=== PATIENT | male | born 1940 | race Caucasian/White ===

== ENCOUNTER 2020-05-24 06:45 | Emergency (ER) | payer MEDICARE, OTHER ==
[~2020-05-24] VITALS: Ht 180.3 cm; Wt 63.5 kg
[2020-05-24 07:40] LABS: Eosinophils # (auto) 0.1 10 ^3/uL (0-0.8); Eosinophils % (auto) 0.6 % (0.0-7.0); Hemoglobin 12.4 g/dL (13.5-17.5); Lymphocytes # (auto) 0.8 10 ^3/uL (0.4-5.4); Lymphocytes % (auto) 6.4 % (10.0-50.0); Monocytes # (auto) 0.6 10 ^3/uL (0-1.3); Neutrophils # (auto) 10.3 10 ^3/uL (1.6-8.6); White Blood Cell 11.8 10^3/uL (4.4-10.8)
[2020-05-24 07:42] LABS: Basophils # (auto) 0.1 10 ^3/uL (0-0.2); Basophils % (auto) 0.5 % (0.0-2.0); Hematocrit 36.3 % (41.0-53.0); Mean Corpuscular Hemoglobin 34.8 pg (28.0-32.0); Mean Corpuscular Hgb Conc. 34.2 g/dL (32.0-36.0); Mean Corpuscular Volume 101.8 fL (80.0-100.0); Neutrophils % (auto) 87.5 % (37.0-80.0); Platelet Count (auto) 233 10^3/uL (140-450); Red Blood Cells 3.56 10^6/uL (4.5-5.90)
[2020-05-24 07:51] LABS: Albumin 3.1 g/dL (3.4-5.0); Calcium 8.8 mg/dL (8.5-10.1); Potassium 4.4 mmol/L (3.5-5.1)
[2020-05-24 07:54] LABS: Urine Bacteria NONE SEEN /hpf (None Seen); Urine Blood TRACE /uL (Negative); Urine Hyaline Cast FEW /lpf (0 - 2); Urine Mucus FEW (None Seen); Urine Specific Gravity 1.014 (1.001-1.035); Urine WBC 3 /hpf (0 - 3)
[2020-05-24 07:59] LABS: Bilirubin, Total 1.4 mg/dL (0.2-1.0); Total Protein 6.8 g/dL (6.4-8.2)
[2020-05-24 08:11] LABS: INR 1.3 (0.9-1.15); Partial Thromboplastin Time 27.6 sec (23.0-31.2)
[2020-05-24] MEDS ORDERED: cefTRIAXone 1GM/50ML D5W 50 ML IV ONE (09:00)
[2020-05-24] MEDS ORDERED: FUROSEMIDE 20 MG/2 ML VIAL IV ONE (09:00)
[2020-05-24 12:02] VITALS: BP 136/46
== END 2020-05-24 12:18 | disposition home or self-care (01) ==
LOC: EDBD 06:45 → ER 06:45
DX: R04.0 Epistaxis (principal); J18.9 Pneumonia, unspecified organism; I50.9 Heart failure, unspecified; E44.1 Mild protein-calorie malnutrition; Z68.1 Body mass index [BMI] 19.9 or less, adult
CPT/HCPCS: 30901; 36415; 71045; 80053; 81001; 84484; 85025; 85610; 85730; 96365; 96375; 99285; J0696; J1940; J7030

== ENCOUNTER 2020-07-18 23:59 | Emergency (ER) | payer MEDICARE, OTHER ==
[~2020-07-18] VITALS: Ht 180.3 cm; Wt 59.0 kg
[2020-07-19] MEDS ORDERED: LIDOCAINE VISCOUS 2% 15ML UD MT ONE (00:30)
[2020-07-19] MEDS ORDERED: OXYMETAZOLINE HCL 0.05 % NASAL SPRAY 15ML EACHNOSTRI ONE (00:30)
[2020-07-19 01:18] LABS: Basophils # (auto) 0 10 ^3/uL (0-0.2); Basophils % (auto) 0.3 % (0.0-2.0); Eosinophils # (auto) 0.1 10 ^3/uL (0-0.8); Eosinophils % (auto) 0.7 % (0.0-7.0); Hematocrit 31.4 % (41.0-53.0); Hemoglobin 10.2 g/dL (13.5-17.5); Lymphocytes # (auto) 0.9 10 ^3/uL (0.4-5.4); Lymphocytes % (auto) 10.5 % (10.0-50.0); Mean Corpuscular Hemoglobin 31.3 pg (28.0-32.0); Mean Corpuscular Hgb Conc. 32.4 g/dL (32.0-36.0); Mean Corpuscular Volume 96.5 fL (80.0-100.0); Monocytes # (auto) 0.4 10 ^3/uL (0-1.3); Neutrophils # (auto) 7.1 10 ^3/uL (1.6-8.6); Neutrophils % (auto) 83.5 % (37.0-80.0); Nucleated Red Blood Cells % 0.1 %; Platelet Count (auto) 133 10^3/uL (140-450); Red Blood Cells 3.25 10^6/uL (4.5-5.90); Red Cell Distribution Width 16.7 % (11.8-14.3); White Blood Cell 8.5 10^3/uL (4.4-10.8)
[2020-07-19 01:34] LABS: Albumin 3.5 g/dL (3.4-5.0); Calcium 8.7 mg/dL (8.5-10.1); Potassium 4.1 mmol/L (3.5-5.1)
[2020-07-19 01:35] LABS: INR 1.25 (0.9-1.15)
[2020-07-19 01:37] LABS: Bilirubin, Total 0.7 mg/dL (0.2-1.0); Total Protein 6.5 g/dL (6.4-8.2)
[2020-07-19 02:31] VITALS: BP 113/48
== END 2020-07-19 03:10 | disposition home or self-care (01) ==
LOC: ER 23:59 → EDBD 23:59 → ER 07-19 03:08
DX: R04.0 Epistaxis (principal)
CPT/HCPCS: 30901; 36415; 80053; 85025; 85610; 85730

== ENCOUNTER 2020-07-19 11:20 | Emergency (ER) | payer MEDICARE ==
[~2020-07-19] VITALS: Ht 180.3 cm; Wt 61.2 kg
[2020-07-19 11:27] VITALS: BP 147/69
== END 2020-07-19 13:03 | disposition home or self-care (01) ==
LOC: ER 11:20
DX: R04.0 Epistaxis (principal); Z48.02 Encounter for removal of sutures

== ENCOUNTER 2021-04-11 07:44 | Inpatient (IN) | payer MEDICARE, OTHER ==
[~2021-04-11] VITALS: Ht 180.3 cm; Wt 52.5 kg
[2021-04-11 09:08] LABS: INR 1.43 (0.9-1.15); Partial Thromboplastin Time 31.9 sec (23.6-33.0)
[2021-04-11 09:09] LABS: Eosinophils # (auto) 0.1 10 ^3/uL (0-0.8); Lymphocytes # (auto) 0.6 10 ^3/uL (0.4-5.4); Monocytes # (auto) 0.4 10 ^3/uL (0-1.3); Neutrophils # (auto) 5.7 10 ^3/uL (1.6-8.6); Nucleated Red Blood Cells % 0.1 %; White Blood Cell 6.9 10^3/uL (4.4-10.8)
[2021-04-11 09:10] LABS: Basophils # (auto) 0 10 ^3/uL (0-0.2); Basophils % (auto) 0.6 % (0.0-2.0); Eosinophils % (auto) 1.9 % (0.0-7.0); Hematocrit 38.3 % (41.0-53.0); Hemoglobin 12.7 g/dL (13.5-17.5); Lymphocytes % (auto) 8.2 % (10.0-50.0); Mean Corpuscular Hemoglobin 34.9 pg (28.0-32.0); Mean Corpuscular Hgb Conc. 33.1 g/dL (32.0-36.0); Mean Corpuscular Volume 105.4 fL (80.0-100.0); Monocytes % (auto) 5.8 % (0.0-12.0); Neutrophils % (auto) 83.5 % (37.0-80.0); Red Blood Cells 3.64 10^6/uL (4.5-5.90); Red Cell Distribution Width 20.9 % (11.8-14.3)
[2021-04-11 09:14] LABS: Albumin 2.7 g/dL (3.4-5.0); Calcium 8.6 mg/dL (8.5-10.1); Magnesium 3.4 mg/dL (1.6-2.6)
[2021-04-11 09:19] LABS: BUN/Creatinine Ratio 24.5
[2021-04-11 09:30] LABS: Potassium 4.7 mmol/L (3.5-5.1)
[2021-04-11] MEDS ORDERED: FUROSEMIDE 20 MG/2 ML VIAL IV ONE (12:45)
[2021-04-11] MEDS ORDERED: ENOXAPARIN SOD 40 MG/0.4 ML SYRINGE SC ONE (14:45)
[2021-04-11] MEDS ORDERED: cefTRIAXone 1GM/50ML D5W 50 ML IV ONE (14:45)
[2021-04-11] MEDS ORDERED: MORPHINE SULFATE INJECTION 2 MG/ML SYRG IV PRN ×3 (14:45→17:00)
[2021-04-11] MEDS ORDERED: AZITHROMYCIN 500MG/ 250ML 250 ML IV ONE (14:45)
[2021-04-11] MEDS ORDERED: methylPREDNISolone SOD SUCC 125 MG/2 ML VL IV ONE (14:45)
[2021-04-11] MEDS ORDERED: NITROGLYCERIN 0.4 MG SL TAB SL PRN ×2 (14:45→17:00)
[2021-04-11] MEDS ORDERED: hydrALAZINE HCL 20 MG/ML VL IV PRN ×2 (14:45→17:00)
[2021-04-11] MEDS ORDERED: ALBUTEROL SULF 2.5 MG/0.5ML(0.5%) NEB SOLN NEB ONE (14:45)
[2021-04-11] MEDS ORDERED: ALBUTEROL SULF 2.5 MG/0.5ML(0.5%) NEB SOLN NEB PRN (14:45)
[2021-04-11] MEDS ORDERED: IPRATROPIUM BROM 0.5 MG/2.5ML INH SOL NEB ONE (14:45)
[2021-04-11] MEDS: ENALAPRIL MALEATE 2.5 MG TAB PO ONE ×2 (14:54→15:17)
[2021-04-11] MEDS: FUROSEMIDE 40 MG/4 ML VIAL IV ONE ×2 (14:55→17:43)
[2021-04-11] MEDS ORDERED: METOPROLOL SUCCINATE XL 50 MG TAB PO ONE (16:45)
[2021-04-11] MEDS ORDERED: BUMETANIDE 2.5mg/10ml (0.25 mg/ml) INJ IV ONE (16:45)
[2021-04-11] MEDS ORDERED: DOCUSATE SOD 100 MG CAP PO PRN (17:00)
[2021-04-11] MEDS ORDERED: ONDANSETRON HCL 4 MG/2 ML VIAL IV PRN (17:00)
[2021-04-11] MEDS ORDERED: ALUM & MAG HYDROX-SIMETH LIQ(MAALOX) 30 ML PO PRN (17:00)
[2021-04-11] MEDS ORDERED: LORazepam 0.5 MG TAB PO PRN (17:00)
[2021-04-11] MEDS ORDERED: IPRATROPIUM BROM 0.5 MG/2.5ML INH SOL NEB SCH (18:00)
[2021-04-11 20:58] LABS: Urine Bacteria MOD /hpf (None Seen); Urine Blood Negative /uL (Negative); Urine Hyaline Cast FEW /lpf (0 - 2); Urine Specific Gravity 1.013 (1.001-1.035); Urine WBC 62 /hpf (0 - 3)
[2021-04-11 21:10] LABS: Alcohol, Urine < 3.0 mg/dL (0-10); Amphetamine Screen, Urine NEGATIVE (NEGATIVE); Barbiturate Scree,Urine NEGATIVE (NEGATIVE); Cannabinoid Screen, Urine NEGATIVE (NEGATIVE); Cocaine Screen, Urine NEGATIVE (NEGATIVE); Opiate Scree,Urine NEGATIVE (NEGATIVE); Phencyclidine Screen, Urine NEGATIVE (NEGATIVE)
[2021-04-11 21:23] LABS: Benzodiazephine Screen, Urine NEGATIVE (NEGATIVE)
[2021-04-11] MEDS: ISOSORBIDE MONONITRATE 20 MG TAB PO SCH (22:59)
[2021-04-11] MEDS: ATORVASTATIN 20 MG TAB PO SCH (22:59)
[2021-04-11] MEDS: APIXABAN 5 MG TAB PO SCH (22:59)
[2021-04-11] MEDS: methylPREDNISolone SOD SUCC 40 MG/ML VL IV SCH (22:59)
[2021-04-12] MEDS ORDERED: IPRATROPIUM BROM 0.5 MG/2.5ML INH SOL NEB PRN (02:00)
[2021-04-12] MEDS: HYDROcodone-ACET 5/325MG TAB PO PRN (02:18)
[2021-04-12] MEDS: BUMETANIDE 2.5mg/10ml (0.25 mg/ml) INJ IV SCH ×2 (05:52→17:50)
[2021-04-12] MEDS: methylPREDNISolone SOD SUCC 40 MG/ML VL IV SCH ×3 (06:06→22:48)
[2021-04-12] MEDS: ACETAMINOPHEN 325 MG TAB PO PRN ×3 (06:06→20:35)
[2021-04-12 08:15] LABS: Basophils # (auto) 0 10 ^3/uL (0-0.2); Basophils % (auto) 0.3 % (0.0-2.0); Eosinophils # (auto) 0 10 ^3/uL (0-0.8); Hematocrit 36.5 % (41.0-53.0); Hemoglobin 12.3 g/dL (13.5-17.5); Nucleated Red Blood Cells % 0.1 %
[2021-04-12 08:17] LABS: Eosinophils % (auto) 0.2 % (0.0-7.0); Lymphocytes # (auto) 0.4 10 ^3/uL (0.4-5.4); Lymphocytes % (auto) 6.9 % (10.0-50.0); Mean Corpuscular Hemoglobin 35.2 pg (28.0-32.0); Mean Corpuscular Hgb Conc. 33.8 g/dL (32.0-36.0); Mean Corpuscular Volume 104.1 fL (80.0-100.0); Monocytes # (auto) 0.1 10 ^3/uL (0-1.3); Monocytes % (auto) 1.9 % (0.0-12.0); Neutrophils # (auto) 5.1 10 ^3/uL (1.6-8.6); Neutrophils % (auto) 90.7 % (37.0-80.0); Red Blood Cells 3.51 10^6/uL (4.5-5.90); Red Cell Distribution Width 20.5 % (11.8-14.3); White Blood Cell 5.6 10^3/uL (4.4-10.8)
[2021-04-12 08:46] LABS: INR 1.41 (0.9-1.15); Partial Thromboplastin Time 32.3 sec (23.6-33.0)
[2021-04-12 08:57] LABS: Albumin 2.5 g/dL (3.4-5.0); BUN/Creatinine Ratio 21.4; Calcium 8.2 mg/dL (8.5-10.1); Magnesium 3.2 mg/dL (1.6-2.6); Phosphorus 3.8 mg/dL (2.5-4.90); Total Protein 5.8 g/dL (6.4-8.2)
[2021-04-12] MEDS: APIXABAN 5 MG TAB PO SCH ×2 (09:52→22:47)
[2021-04-12] MEDS: cefTRIAXone 1GM/50ML D5W 50 ML IV SCH (09:52)
[2021-04-12] MEDS: ISOSORBIDE MONONITRATE 20 MG TAB PO SCH ×2 (09:53→22:46)
[2021-04-12] MEDS: BENAZEPRIL HCL 10 MG TAB PO SCH (09:53)
[2021-04-12] MEDS: METOPROLOL SUCCINATE XL 50 MG TAB PO SCH (09:53)
[2021-04-12] MEDS ORDERED: ENOXAPARIN SOD 40 MG/0.4 ML SYRINGE SC SCH (10:00)
[2021-04-12] MEDS: AZITHROMYCIN 500MG/ 250ML 250 ML IV SCH (10:51)
[2021-04-12 17:07] VITALS: BP 136/70
[2021-04-12] MEDS ORDERED: METH2.5T PO (18:36)
[2021-04-12] MEDS ORDERED: APIX5TAB PO (18:36)
[2021-04-12 20:00] VITALS: BP 138/75
[2021-04-12 22:00] VITALS: BP 138/75
[2021-04-12] MEDS: ATORVASTATIN 20 MG TAB PO SCH (22:47)
[2021-04-13 05:11] VITALS: BP 134/71
[2021-04-13 05:49] LABS: Basophils # (auto) 0 10 ^3/uL (0-0.2); Basophils % (auto) 0.1 % (0.0-2.0); Eosinophils # (auto) 0 10 ^3/uL (0-0.8); Hemoglobin 12.8 g/dL (13.5-17.5); INR 1.41 (0.9-1.15); Mean Corpuscular Hemoglobin 34.9 pg (28.0-32.0); Partial Thromboplastin Time 30.8 sec (23.6-33.0)
[2021-04-13 05:53] LABS: Hematocrit 38.3 % (41.0-53.0); Lymphocytes # (auto) 0.4 10 ^3/uL (0.4-5.4); Lymphocytes % (auto) 2.8 % (10.0-50.0); Mean Corpuscular Hgb Conc. 33.4 g/dL (32.0-36.0); Mean Corpuscular Volume 104.8 fL (80.0-100.0); Monocytes # (auto) 0.3 10 ^3/uL (0-1.3); Monocytes % (auto) 1.9 % (0.0-12.0); Neutrophils # (auto) 12.6 10 ^3/uL (1.6-8.6); Neutrophils % (auto) 95.2 % (37.0-80.0); Red Blood Cells 3.66 10^6/uL (4.5-5.90); White Blood Cell 13.2 10^3/uL (4.4-10.8)
[2021-04-13 05:59] LABS: Red Cell Distribution Width 20.9 % (11.8-14.3)
[2021-04-13 06:00] LABS: Potassium 4.1 mmol/L (3.5-5.1)
[2021-04-13] MEDS: BUMETANIDE 2.5mg/10ml (0.25 mg/ml) INJ IV SCH ×2 (06:12→18:03)
[2021-04-13] MEDS: methylPREDNISolone SOD SUCC 40 MG/ML VL IV SCH ×3 (06:13→21:37)
[2021-04-13 06:16] LABS: BUN/Creatinine Ratio 24.5; Bilirubin, Total 0.9 mg/dL (0.2-1.0); Calcium 8.1 mg/dL (8.5-10.1); Magnesium 2.1 mg/dL (1.6-2.6); Total Protein 6.6 g/dL (6.4-8.2)
[2021-04-13] MEDS: cefTRIAXone 1GM/50ML D5W 50 ML IV SCH (08:17)
[2021-04-13 09:00] VITALS: BP 137/79
[2021-04-13] MEDS: APIXABAN 5 MG TAB PO SCH ×2 (10:43→21:37)
[2021-04-13] MEDS: BENAZEPRIL HCL 10 MG TAB PO SCH (10:45)
[2021-04-13] MEDS: ISOSORBIDE MONONITRATE 20 MG TAB PO SCH ×2 (10:45→21:55)
[2021-04-13] MEDS: METOPROLOL SUCCINATE XL 50 MG TAB PO SCH (10:46)
[2021-04-13 12:35] VITALS: BP 129/83
[2021-04-13] MEDS: AZITHROMYCIN 500MG/ 250ML 250 ML IV SCH (12:46)
[2021-04-13 17:00] VITALS: BP 127/84
[2021-04-13] MEDS: HYDROcodone-ACET 5/325MG TAB PO PRN (19:54)
[2021-04-13 20:00] VITALS: BP 120/84
[2021-04-13] MEDS: ATORVASTATIN 20 MG TAB PO SCH (21:37)
[2021-04-13] MEDS: MUPIROCIN 2% OINT 15gm or 22gm EACHNOSTRI SCH (21:38)
[2021-04-13 23:08] VITALS: BP 120/84
[2021-04-14] MEDS: ACETAMINOPHEN 325 MG TAB PO PRN (04:01)
[2021-04-14 05:18] VITALS: BP 137/77
[2021-04-14 06:13] LABS: Basophils # (auto) 0 10 ^3/uL (0-0.2); Eosinophils # (auto) 0 10 ^3/uL (0-0.8); Hemoglobin 12.9 g/dL (13.5-17.5); Lymphocytes # (auto) 0.2 10 ^3/uL (0.4-5.4); Monocytes # (auto) 0.4 10 ^3/uL (0-1.3); Nucleated Red Blood Cells % 0.1 %; Red Blood Cells 3.68 10^6/uL (4.5-5.90)
[2021-04-14 06:16] LABS: Hematocrit 38.7 % (41.0-53.0); Lymphocytes % (auto) 1.5 % (10.0-50.0); Mean Corpuscular Hgb Conc. 33.2 g/dL (32.0-36.0); Mean Corpuscular Volume 105.4 fL (80.0-100.0); Monocytes % (auto) 2.8 % (0.0-12.0); Neutrophils # (auto) 13.7 10 ^3/uL (1.6-8.6); Neutrophils % (auto) 95.7 % (37.0-80.0); White Blood Cell 14.3 10^3/uL (4.4-10.8)
[2021-04-14] MEDS: BUMETANIDE 2.5mg/10ml (0.25 mg/ml) INJ IV SCH ×2 (06:16→18:58)
[2021-04-14] MEDS: methylPREDNISolone SOD SUCC 40 MG/ML VL IV SCH (06:17)
[2021-04-14 06:31] LABS: Magnesium 2.3 mg/dL (1.6-2.6); Phosphorus 3.3 mg/dL (2.5-4.90)
[2021-04-14 06:37] LABS: INR 1.35 (0.9-1.15); Partial Thromboplastin Time 28.8 sec (23.6-33.0)
[2021-04-14 06:47] LABS: Red Cell Distribution Width 21.8 % (11.8-14.3)
[2021-04-14 09:00] VITALS: BP 139/70
[2021-04-14] MEDS: cefTRIAXone 1GM/50ML D5W 50 ML IV SCH (09:32)
[2021-04-14] MEDS: APIXABAN 5 MG TAB PO SCH ×2 (09:32→21:07)
[2021-04-14] MEDS: MUPIROCIN 2% OINT 15gm or 22gm EACHNOSTRI SCH ×2 (09:32→21:07)
[2021-04-14] MEDS: BENAZEPRIL HCL 10 MG TAB PO SCH (09:33)
[2021-04-14] MEDS: METOPROLOL SUCCINATE XL 50 MG TAB PO SCH (09:33)
[2021-04-14] MEDS: ISOSORBIDE MONONITRATE 20 MG TAB PO SCH ×2 (09:34→21:08)
[2021-04-14 13:00] VITALS: BP 140/71
[2021-04-14] MEDS: HYDROcodone-ACET 5/325MG TAB PO PRN (15:34)
[2021-04-14 17:00] VITALS: BP 127/53
[2021-04-14 20:00] VITALS: BP 132/70
[2021-04-14] MEDS: ATORVASTATIN 20 MG TAB PO SCH (21:08)
[2021-04-15 04:00] VITALS: BP 143/74
[2021-04-15] MEDS: HYDROcodone-ACET 5/325MG TAB PO PRN (04:30)
[2021-04-15] MEDS: BUMETANIDE 2.5mg/10ml (0.25 mg/ml) INJ IV SCH ×2 (06:49→18:24)
[2021-04-15 07:10] LABS: Calcium 8.3 mg/dL (8.5-10.1)
[2021-04-15 07:14] LABS: BUN/Creatinine Ratio 35.4
[2021-04-15 08:03] LABS: Potassium 2.7 mmol/L (3.5-5.1)
[2021-04-15 09:00] VITALS: BP 126/62
[2021-04-15] MEDS: BENAZEPRIL HCL 10 MG TAB PO SCH (09:27)
[2021-04-15] MEDS: METOPROLOL SUCCINATE XL 50 MG TAB PO SCH (09:28)
[2021-04-15] MEDS: MUPIROCIN 2% OINT 15gm or 22gm EACHNOSTRI SCH ×2 (09:28→23:01)
[2021-04-15] MEDS: APIXABAN 5 MG TAB PO SCH ×2 (09:28→23:02)
[2021-04-15] MEDS: ISOSORBIDE MONONITRATE 20 MG TAB PO SCH ×2 (10:00→23:02)
[2021-04-15] MEDS ORDERED: AZITHROMYCIN 250 MG TAB PO SCH (10:00)
[2021-04-15] MEDS ORDERED: POTASSIUM CHL 20 Meq TABLET PO ONE ×2 (10:15→13:00)
[2021-04-15] MEDS ORDERED: levoFLOXacin 500 MG TAB PO ONE (10:15)
[2021-04-15 13:00] VITALS: BP 128/54
[2021-04-15 17:00] VITALS: BP 119/60
[2021-04-15] MEDS: DOBUTamine 1000MCG/ML 250 ML IV SCH (17:14)
[2021-04-15 20:00] VITALS: BP 127/60
[2021-04-15 22:00] VITALS: BP 122/71
[2021-04-15] MEDS: ATORVASTATIN 20 MG TAB PO SCH (23:02)
[2021-04-16 05:00] VITALS: BP 138/70
[2021-04-16] MEDS: BUMETANIDE 2.5mg/10ml (0.25 mg/ml) INJ IV SCH ×2 (06:25→17:53)
[2021-04-16 08:43] LABS: Potassium 3.9 mmol/L (3.5-5.1)
[2021-04-16 08:58] LABS: BUN/Creatinine Ratio 30.7; Calcium 9.7 mg/dL (8.5-10.1); Magnesium 3.3 mg/dL (1.6-2.6)
[2021-04-16 09:00] VITALS: BP 110/56
[2021-04-16] MEDS: APIXABAN 5 MG TAB PO SCH ×2 (09:41→21:22)
[2021-04-16] MEDS: ISOSORBIDE MONONITRATE 20 MG TAB PO SCH ×2 (09:41→21:33)
[2021-04-16] MEDS: BENAZEPRIL HCL 10 MG TAB PO SCH (09:42)
[2021-04-16] MEDS: METOPROLOL SUCCINATE XL 50 MG TAB PO SCH (09:43)
[2021-04-16] MEDS: levoFLOXacin 500 MG TAB PO SCH (09:43)
[2021-04-16] MEDS: MUPIROCIN 2% OINT 15gm or 22gm EACHNOSTRI SCH ×2 (09:43→21:22)
[2021-04-16] MEDS: POTASSIUM CHL 20 Meq TABLET PO SCH (10:00)
[2021-04-16 13:00] VITALS: BP 102/48
[2021-04-16] MEDS: DOBUTamine 1000MCG/ML 250 ML IV SCH (16:15)
[2021-04-16 17:00] VITALS: BP 128/71
[2021-04-16 20:00] VITALS: BP 122/56
[2021-04-16] MEDS: ATORVASTATIN 20 MG TAB PO SCH (21:22)
[2021-04-16 22:00] VITALS: BP 122/56
[2021-04-17] MEDS: ACETAMINOPHEN 325 MG TAB PO PRN (03:35)
[2021-04-17 05:25] VITALS: BP 122/65
[2021-04-17] MEDS: BUMETANIDE 2.5mg/10ml (0.25 mg/ml) INJ IV SCH (06:50)
[2021-04-17 09:00] VITALS: BP 104/54
[2021-04-17] MEDS: POTASSIUM CHL 20 Meq TABLET PO SCH (09:56)
[2021-04-17] MEDS: APIXABAN 5 MG TAB PO SCH (09:56)
[2021-04-17] MEDS: levoFLOXacin 500 MG TAB PO SCH (09:56)
[2021-04-17] MEDS: MUPIROCIN 2% OINT 15gm or 22gm EACHNOSTRI SCH (10:00)
[2021-04-17] MEDS: ISOSORBIDE MONONITRATE 20 MG TAB PO SCH (10:00)
[2021-04-17] MEDS: METOPROLOL SUCCINATE XL 50 MG TAB PO SCH (10:00)
[2021-04-17] MEDS: BENAZEPRIL HCL 10 MG TAB PO SCH (10:00)
[2021-04-17 13:00] VITALS: BP 112/64
[2021-04-17 13:36] VITALS: BP 122/65
== END 2021-04-17 15:30 | disposition home or self-care (01) | DRG 291 ==
LOC: ER 07:44 → EDUNIT# 07:44 → EDBD 07:44 → OVERFLOW 14:39 → CENTRAL 04-12 16:21 → TELE-CENTR 04-16 02:06
PROVIDERS: ADMIT Hospitalist; ATTEND Internal Medicine
DX: I13.0 Hypertensive heart and chronic kidney disease with heart failure and stage 1 through stage 4 chronic kidney disease, or unspecified chronic kidney disease (principal); I50.43 Acute on chronic combined systolic (congestive) and diastolic (congestive) heart failure; N17.0 Acute kidney failure with tubular necrosis; J96.20 Acute and chronic respiratory failure, unspecified whether with hypoxia or hypercapnia; J44.0 Chronic obstructive pulmonary disease with (acute) lower respiratory infection; I47.1 Supraventricular tachycardia; I48.20 Chronic atrial fibrillation, unspecified; I48.92 Unspecified atrial flutter; N39.0 Urinary tract infection, site not specified; E44.0 Moderate protein-calorie malnutrition; D68.69 Other thrombophilia; J44.1 Chronic obstructive pulmonary disease with (acute) exacerbation; D64.9 Anemia, unspecified; Z20.822 Contact with and (suspected) exposure to COVID-19; E78.5 Hyperlipidemia, unspecified; M19.90 Unspecified osteoarthritis, unspecified site; R16.0 Hepatomegaly, not elsewhere classified; N18.30 Chronic kidney disease, stage 3 unspecified; M06.9 Rheumatoid arthritis, unspecified; B96.20 Unspecified Escherichia coli [E. coli] as the cause of diseases classified elsewhere; E87.6 Hypokalemia; I71.2 Thoracic aortic aneurysm, without rupture; Z79.899 Other long term (current) drug therapy; Z68.20 Body mass index [BMI] 20.0-20.9, adult; Z82.49 Family history of ischemic heart disease and other diseases of the circulatory system
CPT/HCPCS: 36415; 70450; 71045; 80048; 80053; 80307; 81001; 82607; 83036; 83735; 83880; 84100; 84443; 84484; 85025; 85379; 85610; 85730; 86160; 87040; 87081; 87086; 87088; 87186; 87426; 93005; 93306; 93970; 96365; 96368; 96372; 96375; 99291; G0378; J0696

== ENCOUNTER 2021-04-26 11:32 | Emergency (ER) | payer MEDICARE, OTHER ==
[~2021-04-26] VITALS: Ht 180.3 cm; Wt 58.1 kg
[~2021-04-26 11:32] MED LIST: APIX5TAB PO; METH2.5T PO
[2021-04-26] MEDS ORDERED: LIDOCAINE 1% HCL (LOCAL ANESTH.) INJ 20ML MDV ONE (12:25)
[2021-04-26] MEDS ORDERED: methylPREDNISolone SOD SUCC 125 MG/2 ML VL IM ONE (12:30)
[2021-04-26] MEDS ORDERED: cefTRIAXone SOD 1,000 MG VL IM ONE (12:30)
[2021-04-26] MEDS ORDERED: AMOX500T86 PO (12:43)
[2021-04-26] MEDS ORDERED: LIDO2SOL23 MT (12:43)
[2021-04-26 13:04] VITALS: BP 146/71
== END 2021-04-26 13:06 | disposition home or self-care (01) ==
LOC: ER 11:32
DX: K12.1 Other forms of stomatitis (principal); J44.9 Chronic obstructive pulmonary disease, unspecified; I50.9 Heart failure, unspecified; I48.91 Unspecified atrial fibrillation; Z79.899 Other long term (current) drug therapy
CPT/HCPCS: 96372; 99284; J0696; J2001; J2930

== ENCOUNTER 2021-08-20 15:34 | Emergency (ER) | payer MEDICARE, OTHER ==
[~2021-08-20] VITALS: Ht 180.3 cm; Wt 72.6 kg
[~2021-08-20 15:34] MED LIST changes: +AMOX500T86 PO; +LIDO2SOL23 MT
[2021-08-20 16:27] LABS: Basophils # (auto) 0 10 ^3/uL (0-0.2); Eosinophils # (auto) 0 10 ^3/uL (0-0.8); Eosinophils % (auto) 0.8 % (0.0-7.0); Lymphocytes # (auto) 0.8 10 ^3/uL (0.4-5.4); Monocytes # (auto) 0.4 10 ^3/uL (0-1.3); White Blood Cell 4.3 10^3/uL (4.4-10.8)
[2021-08-20 16:29] LABS: Basophils % (auto) 1.1 % (0.0-2.0); Hematocrit 39.6 % (41.0-53.0); Hemoglobin 13.3 g/dL (13.5-17.5); Lymphocytes % (auto) 19.2 % (10.0-50.0); Mean Corpuscular Hemoglobin 34.9 pg (28.0-32.0); Mean Corpuscular Hgb Conc. 33.7 g/dL (32.0-36.0); Mean Corpuscular Volume 103.7 fL (80.0-100.0); Monocytes % (auto) 9.5 % (0.0-12.0); Neutrophils % (auto) 69.4 % (37.0-80.0); Nucleated Red Blood Cells % 0.2 %; Red Blood Cells 3.82 10^6/uL (4.5-5.90); Red Cell Distribution Width 15.3 % (11.8-14.3)
[2021-08-20] MEDS ORDERED: AZITHROMYCIN 500MG/ 250ML 250 ML IV ONE (16:45)
[2021-08-20] MEDS ORDERED: cefTRIAXone 1GM/50ML D5W 50 ML IV ONE (16:45)
[2021-08-20 16:46] LABS: Albumin 3.7 g/dL (3.4-5.0); BUN/Creatinine Ratio 15.6; Calcium 9.5 mg/dL (8.5-10.1); INR 1.52 (0.9-1.15); Magnesium 2.4 mg/dL (1.6-2.6); Partial Thromboplastin Time 30.9 sec (23.6-33.0)
[2021-08-20 16:49] LABS: Bilirubin, Total 1.6 mg/dL (0.2-1.0); Total Protein 6.6 g/dL (6.4-8.2)
[2021-08-20] MEDS ORDERED: LEVO500T31 PO ×2 (19:41→21:07)
[2021-08-20 19:50] VITALS: BP 126/83
[2021-08-20 20:58] LABS: Urine Bacteria NONE SEEN /hpf (None Seen); Urine Blood Negative /uL (Negative); Urine Mucus FEW (None Seen); Urine Specific Gravity 1.025 (1.001-1.035); Urine WBC 2 /hpf (0 - 3)
== END 2021-08-20 21:40 | disposition home or self-care (01) ==
LOC: ER 15:34
DX: J18.9 Pneumonia, unspecified organism (principal); J44.9 Chronic obstructive pulmonary disease, unspecified
CPT/HCPCS: 36415; 71045; 80053; 81001; 83735; 83880; 84484; 85025; 85610; 85730; 86850; 86900; 86901; 93005; 96365; 96366; 96367; 99285; J0456; J0696

== ENCOUNTER 2022-07-28 14:37 | Inpatient (IN) | payer MEDICARE, OTHER ==
[~2022-07-28] VITALS: Ht 175.3 cm; Wt 56.3 kg
[~2022-07-28 14:37] MED LIST changes: +LEVO500T31 PO
[2022-07-28 15:40] LABS: Basophils # (auto) 0.1 10 ^3/uL (0-0.2); Eosinophils # (auto) 0 10 ^3/uL (0-0.8); Eosinophils % (auto) 0.1 % (0.0-7.0); Hemoglobin 13.4 g/dL (13.5-17.5); Lymphocytes # (auto) 0.9 10 ^3/uL (0.4-5.4); Monocytes # (auto) 0.9 10 ^3/uL (0-1.3)
[2022-07-28 15:42] LABS: Basophils % (auto) 0.5 % (0.0-2.0); Hematocrit 39.6 % (41.0-53.0); Mean Corpuscular Hemoglobin 34.6 pg (28.0-32.0); Mean Corpuscular Hgb Conc. 33.8 g/dL (32.0-36.0); Mean Corpuscular Volume 102.5 fL (80.0-100.0); Monocytes % (auto) 6.5 % (0.0-12.0); Neutrophils # (auto) 12.3 10 ^3/uL (1.6-8.6); Neutrophils % (auto) 86.9 % (37.0-80.0); Red Blood Cells 3.87 10^6/uL (4.5-5.90); Red Cell Distribution Width 14.8 % (11.8-14.3); White Blood Cell 14.2 10^3/uL (4.4-10.8)
[2022-07-28] MEDS ORDERED: ALBUTEROL SULF 2.5 MG/0.5ML(0.5%) NEB SOLN ONE (16:12)
[2022-07-28] MEDS ORDERED: IPRATROPIUM BROM 0.5 MG/2.5ML INH SOL ONE (16:12)
[2022-07-28 16:15] LABS: Potassium 5.2 mmol/L (3.5-5.1)
[2022-07-28] MEDS ORDERED: AZITHROMYCIN 500MG/ 250ML 250 ML IV ONE (16:15)
[2022-07-28] MEDS ORDERED: IPRATROPIUM BROM 0.5 MG/2.5ML INH SOL NEB ONE (16:15)
[2022-07-28] MEDS ORDERED: DexAMETHasone SOD PHOS 10MG/1ML VIAL INJ IV ONE (16:15)
[2022-07-28] MEDS ORDERED: ALBUTEROL SULF 2.5 MG/0.5ML(0.5%) NEB SOLN NEB ONE (16:15)
[2022-07-28] MEDS ORDERED: cefTRIAXone 1GM/50ML D5W 50 ML IV ONE (16:15)
[2022-07-28] MEDS ORDERED: dilTIAZem 25 MG/5 ML VIAL IV ONE ×2 (16:15→17:45)
[2022-07-28 16:23] LABS: Albumin 3.2 g/dL (3.4-5.0); Bilirubin, Total 1.7 mg/dL (0.2-1.0); Calcium 9.3 mg/dL (8.5-10.1); Total Protein 7.4 g/dL (6.4-8.2)
[2022-07-28] MEDS ORDERED: dilTIAZem 125 MG/25ML INJ VIAL IV ONE (16:30)
[2022-07-28] MEDS: MAGNESIUM SULFATE 1GM/100ML 100 ML IV SCH ×2 (16:52→17:39)
[2022-07-28] MEDS ORDERED: LACTATED RINGER'S 1,000 ML IV ONE (17:30)
[2022-07-28] MEDS ORDERED: dilTIAZem 120MG ER CAP PO ONE (17:45)
[2022-07-28] MEDS ORDERED: dilTIAZem HCL 60 MG TAB PO ONE (18:00)
[2022-07-28] MEDS ORDERED: NITROGLYCERIN 0.4 MG SL TAB SL PRN (19:30)
[2022-07-28] MEDS ORDERED: ALBUTEROL SULF 2.5 MG/0.5ML(0.5%) NEB SOLN NEB PRN (19:30)
[2022-07-28] MEDS ORDERED: MORPHINE SULFATE INJ 2 MG/ml SYRG IV PRN (19:30)
[2022-07-28 19:36] VITALS: BP 114/73
[2022-07-28] MEDS: ACETAMINOPHEN 325 MG TAB PO PRN (21:54)
[2022-07-28] MEDS: TEMAZEPAM 15 MG CAP PO PRN (21:56)
[2022-07-28] MEDS: APIXABAN 2.5 MG TAB PO SCH (21:57)
[2022-07-28] MEDS: IPRATROPIUM BROM 0.5 MG/2.5ML INH SOL NEB SCH (22:41)
[2022-07-28] MEDS: ALBUTEROL SULF 2.5 MG/0.5ML(0.5%) NEB SOLN NEB SCH (22:42)
[2022-07-29] MEDS: ALBUTEROL SULF 2.5 MG/0.5ML(0.5%) NEB SOLN NEB SCH ×6 (02:03→22:00)
[2022-07-29] MEDS: IPRATROPIUM BROM 0.5 MG/2.5ML INH SOL NEB SCH ×6 (02:03→21:59)
[2022-07-29] MEDS: ACETAMINOPHEN 325 MG TAB PO PRN ×2 (05:10→10:51)
[2022-07-29 06:23] LABS: Basophils # (auto) 0 10 ^3/uL (0-0.2); Basophils % (auto) 0.1 % (0.0-2.0); Eosinophils # (auto) 0 10 ^3/uL (0-0.8); Hemoglobin 12.5 g/dL (13.5-17.5); Monocytes # (auto) 0.1 10 ^3/uL (0-1.3); Monocytes % (auto) 1.5 % (0.0-12.0)
[2022-07-29 06:30] LABS: Hematocrit 36.8 % (41.0-53.0); Lymphocytes # (auto) 0.5 10 ^3/uL (0.4-5.4); Lymphocytes % (auto) 5.7 % (10.0-50.0); Mean Corpuscular Hemoglobin 34.9 pg (28.0-32.0); Mean Corpuscular Volume 102.7 fL (80.0-100.0); Neutrophils # (auto) 7.5 10 ^3/uL (1.6-8.6); Neutrophils % (auto) 92.7 % (37.0-80.0); Red Blood Cells 3.59 10^6/uL (4.5-5.90); Red Cell Distribution Width 14.8 % (11.8-14.3)
[2022-07-29 06:50] LABS: Potassium 4.4 mmol/L (3.5-5.1)
[2022-07-29 07:10] LABS: Albumin 2.7 g/dL (3.4-5.0); Bilirubin, Total 0.9 mg/dL (0.2-1.0); Calcium 9.1 mg/dL (8.5-10.1)
[2022-07-29] MEDS: cefTRIAXone 1GM/50ML D5W 50 ML IV SCH (09:37)
[2022-07-29] MEDS ORDERED: METHOTREXATE 2.5 MG TAB PO SCH (10:00)
[2022-07-29] MEDS: AZITHROMYCIN 500MG/ 250ML 250 ML IV SCH (10:51)
[2022-07-29] MEDS: APIXABAN 2.5 MG TAB PO SCH ×2 (10:51→21:01)
[2022-07-29] MEDS ORDERED: DexAMETHasone INJECTION 10 MG in D5W 5% 50 ML IV ONE (14:00)
[2022-07-29] MEDS ORDERED: METOPROLOL TARTRATE 1MG/1ML-5ML VIAL IV ONE (18:45)
[2022-07-29 20:00] VITALS: BP 145/74
[2022-07-29] MEDS: TEMAZEPAM 15 MG CAP PO PRN (21:01)
[2022-07-29 22:00] VITALS: BP 145/74
[2022-07-30] VITALS (7 sets, daily range): BP systolic 145–158; BP diastolic 74–91
[2022-07-30] MEDS: ALBUTEROL SULF 2.5 MG/0.5ML(0.5%) NEB SOLN NEB SCH ×6 (02:06→22:25)
[2022-07-30] MEDS: IPRATROPIUM BROM 0.5 MG/2.5ML INH SOL NEB SCH ×6 (02:06→22:25)
[2022-07-30 10:26] LABS: Hepatitis A Ab IgM Negative; Hepatitis B Core IgM Negative; Hepatitis C Antibody Negative (Negative)
[2022-07-30] MEDS: cefTRIAXone 1GM/50ML D5W 50 ML IV SCH (10:53)
[2022-07-30] MEDS: DexAMETHasone INJECTION 10 MG in D5W 5% 50 ML IV SCH (10:53)
[2022-07-30] MEDS: APIXABAN 2.5 MG TAB PO SCH ×2 (10:53→22:18)
[2022-07-30] MEDS ORDERED: FUROSEMIDE 40 MG/4 ML VIAL IV ONE (11:15)
[2022-07-30] MEDS: AZITHROMYCIN 500MG/ 250ML 250 ML IV SCH (12:24)
[2022-07-30] MEDS: FUROSEMIDE 20 MG/2 ML VIAL IV SCH (17:45)
[2022-07-30] MEDS: TEMAZEPAM 15 MG CAP PO PRN (22:18)
[2022-07-31] MEDS: IPRATROPIUM BROM 0.5 MG/2.5ML INH SOL NEB SCH ×3 (01:55→09:54)
[2022-07-31] MEDS: ALBUTEROL SULF 2.5 MG/0.5ML(0.5%) NEB SOLN NEB SCH ×3 (01:55→09:54)
[2022-07-31 05:24] VITALS: BP 130/79
[2022-07-31] MEDS: FUROSEMIDE 20 MG/2 ML VIAL IV SCH (06:05)
[2022-07-31 09:07] VITALS: BP 112/85
[2022-07-31] MEDS: cefTRIAXone 1GM/50ML D5W 50 ML IV SCH (09:07)
[2022-07-31] MEDS: APIXABAN 2.5 MG TAB PO SCH (09:11)
[2022-07-31] MEDS: AZITHROMYCIN 500MG/ 250ML 250 ML IV SCH (09:13)
[2022-07-31] MEDS ORDERED: dilTIAZem HCL 180MG ER CAP PO SCH (10:00)
[2022-07-31] MEDS: DexAMETHasone INJECTION 10 MG in D5W 5% 50 ML IV SCH (10:00)
[2022-07-31] MEDS ORDERED: LEVO500T31 PO (11:26)
[2022-07-31] MEDS ORDERED: METH4PAK PO (11:26)
[2022-07-31 12:44] VITALS: BP 112/85
[2022-07-31] MEDS ORDERED: TEMA15CA2 PO (14:20)
== END 2022-07-31 14:05 | disposition home or self-care (01) | DRG 193 ==
LOC: ER 14:37 → TELE 19:29 → TELE-WESTW 07-29 17:39
PROVIDERS: ADMIT Nurse Practitioner Family; ATTEND Internal Medicine Geriatric Medicine
DX: J18.9 Pneumonia, unspecified organism (principal); I50.43 Acute on chronic combined systolic (congestive) and diastolic (congestive) heart failure; J96.21 Acute and chronic respiratory failure with hypoxia; J44.1 Chronic obstructive pulmonary disease with (acute) exacerbation; J44.0 Chronic obstructive pulmonary disease with (acute) lower respiratory infection; I48.20 Chronic atrial fibrillation, unspecified; I11.0 Hypertensive heart disease with heart failure; E78.5 Hyperlipidemia, unspecified; I08.1 Rheumatic disorders of both mitral and tricuspid valves; Z82.49 Family history of ischemic heart disease and other diseases of the circulatory system; Z79.01 Long term (current) use of anticoagulants
CPT/HCPCS: 36415; 71045; 76700; 80053; 80074; 83605; 83880; 84484; 85025; 87040; 87086; 93005; 93306; 94640; 96365; 96366; 99291; G0378; J0696; J1100; J7060

== ENCOUNTER 2022-08-14 04:24 | Emergency (ER) | payer MEDICARE, OTHER ==
[~2022-08-14] VITALS: Ht 180.3 cm; Wt 60.0 kg
[~2022-08-14 04:24] MED LIST changes: -AMOX500T86 PO; -METH2.5T PO; +METH4PAK PO; +TEMA15CA2 PO
[2022-08-14 04:59] LABS: Basophils # (auto) 0.1 10 ^3/uL (0-0.2); Basophils % (auto) 0.7 % (0.0-2.0); Eosinophils # (auto) 0.1 10 ^3/uL (0-0.8); White Blood Cell 8.5 10^3/uL (4.4-10.8)
[2022-08-14 05:02] LABS: Eosinophils % (auto) 1.2 % (0.0-7.0); Hematocrit 38.4 % (41.0-53.0); Lymphocytes % (auto) 11.7 % (10.0-50.0); Mean Corpuscular Hemoglobin 34.9 pg (28.0-32.0); Mean Corpuscular Hgb Conc. 33.7 g/dL (32.0-36.0); Mean Corpuscular Volume 103.7 fL (80.0-100.0); Monocytes # (auto) 0.8 10 ^3/uL (0-1.3); Monocytes % (auto) 8.8 % (0.0-12.0); Neutrophils # (auto) 6.6 10 ^3/uL (1.6-8.6); Neutrophils % (auto) 77.6 % (37.0-80.0); Nucleated Red Blood Cells % 0.1 %; Red Blood Cells 3.71 10^6/uL (4.5-5.90); Red Cell Distribution Width 14.9 % (11.8-14.3)
[2022-08-14 05:15] LABS: INR 1.18 (0.9-1.15); Partial Thromboplastin Time 29.9 sec (24.6-33.4)
[2022-08-14 05:20] LABS: Albumin 3.2 g/dL (3.4-5.0); Magnesium 2.4 mg/dL (1.6-2.6); Potassium 4.5 mmol/L (3.5-5.1)
[2022-08-14 05:23] LABS: BUN/Creatinine Ratio 29.6 (10.0-20.0); Bilirubin, Total 1.5 mg/dL (0.2-1.0); Total Protein 6.4 g/dL (6.4-8.2)
[2022-08-14] MEDS ORDERED: OXYMETAZOLINE HCL 0.05 % NASAL SPRAY 15ML EACHNOSTRI ONE ×2 (05:30→06:45)
[2022-08-14 08:34] VITALS: BP 122/65
== END 2022-08-14 10:05 | disposition home or self-care (01) ==
LOC: EDBD 04:24 → ER 04:24
DX: R04.0 Epistaxis (principal)
CPT/HCPCS: 30901; 36415; 80053; 83735; 83880; 84484; 85025; 85610; 85730; 93005

== ENCOUNTER 2022-08-26 11:51 | Inpatient (IN) | payer MEDICARE ==
[~2022-08-26] VITALS: Ht 180.3 cm; Wt 53.6 kg
[~2022-08-26 11:51] MED LIST changes: -LIDO2SOL23 MT; +LIDO2SOL26 MT
[2022-08-26 12:50] LABS: Basophils # (auto) 0 10 ^3/uL (0-0.2); Eosinophils # (auto) 0 10 ^3/uL (0-0.8); Hematocrit 40.3 % (41.0-53.0); Hemoglobin 13.6 g/dL (13.5-17.5); Mean Corpuscular Hemoglobin 34.7 pg (28.0-32.0); Mean Corpuscular Hgb Conc. 33.7 g/dL (32.0-36.0); Monocytes # (auto) 0.5 10 ^3/uL (0-1.3); Neutrophils # (auto) 1.9 10 ^3/uL (1.6-8.6); Nucleated Red Blood Cells % 0.1 %; White Blood Cell 2.9 10^3/uL (4.4-10.8)
[2022-08-26 12:52] LABS: Basophils % (auto) 0.7 % (0.0-2.0); Eosinophils % (auto) 0.8 % (0.0-7.0); Lymphocytes # (auto) 0.4 10 ^3/uL (0.4-5.4); Lymphocytes % (auto) 15.5 % (10.0-50.0); Mean Corpuscular Volume 102.9 fL (80.0-100.0); Monocytes % (auto) 16.9 % (0.0-12.0); Neutrophils % (auto) 66.1 % (37.0-80.0); Red Blood Cells 3.92 10^6/uL (4.5-5.90); Red Cell Distribution Width 14.5 % (11.8-14.3)
[2022-08-26] MEDS ORDERED: IPRATROPIUM BROM 0.5 MG/2.5ML INH SOL NEB ONE (13:00)
[2022-08-26] MEDS ORDERED: ALBUTEROL SULF 2.5 MG/0.5ML(0.5%) NEB SOLN NEB ONE (13:00)
[2022-08-26] MEDS ORDERED: DexAMETHasone SOD PHOS 10MG/1ML VIAL INJ IV ONE (13:00)
[2022-08-26] MEDS ORDERED: DOXYCYCLINE 100MG/250ML 250 ML IV ONE (13:00)
[2022-08-26] MEDS ORDERED: MAGNESIUM SULFATE 1GM/100ML 100 ML IV ONE (13:00)
[2022-08-26 13:07] LABS: INR 1.15 (0.9-1.15); Partial Thromboplastin Time 33.6 sec (24.6-33.4)
[2022-08-26 13:08] LABS: Albumin 3.6 g/dL (3.4-5.0); Calcium 8.8 mg/dL (8.5-10.1); Magnesium 2.3 mg/dL (1.6-2.6); Potassium 4.8 mmol/L (3.5-5.1)
[2022-08-26 13:11] LABS: Bilirubin, Total 0.8 mg/dL (0.2-1.0); Total Protein 7.2 g/dL (6.4-8.2)
[2022-08-26] MEDS ORDERED: VANCOMYCIN 1GM/250ML 250 ML IV ONE ×2 (16:45)
[2022-08-26] MEDS ORDERED: CEFEPIME 1GM/ 50ML 50 ML IV ONE ×2 (16:45)
[2022-08-26] MEDS ORDERED: ALBUTEROL SULF 2.5 MG/0.5ML(0.5%) NEB SOLN NEB PRN (17:00)
[2022-08-26] MEDS ORDERED: ACETAMINOPHEN 500 MG TAB PO ONE (17:00)
[2022-08-26] MEDS ORDERED: ACETAMINOPHEN 325 MG TAB PO PRN (17:15)
[2022-08-26] MEDS: ALBUTEROL SULF 2.5 MG/0.5ML(0.5%) NEB SOLN NEB SCH (18:00)
[2022-08-26] MEDS: IPRATROPIUM BROM 0.5 MG/2.5ML INH SOL NEB SCH (18:00)
[2022-08-26 19:44] VITALS: BP 140/55
[2022-08-26] MEDS ORDERED: dilTIAZem HCL 60 MG TAB PO ONE (20:30)
[2022-08-26] MEDS ORDERED: dilTIAZem 25 MG/5 ML VIAL IV ONE ×2 (20:30)
[2022-08-26] MEDS: APIXABAN 2.5 MG TAB PO SCH ×2 (22:00→22:18)
[2022-08-27] MEDS: ALBUTEROL SULF 2.5 MG/0.5ML(0.5%) NEB SOLN NEB SCH ×4 (00:32→20:15)
[2022-08-27] MEDS: IPRATROPIUM BROM 0.5 MG/2.5ML INH SOL NEB SCH ×4 (00:32→20:15)
[2022-08-27] MEDS: levoFLOXacin 500 MG TAB PO SCH ×2 (02:54→22:16)
[2022-08-27] MEDS: ACETAMINOPHEN 325 MG TAB PO PRN ×3 (02:54→22:16)
[2022-08-27 07:40] LABS: Albumin 3.4 g/dL (3.4-5.0); Calcium 8.3 mg/dL (8.5-10.1); Potassium 4.9 mmol/L (3.5-5.1)
[2022-08-27 07:42] LABS: Mean Corpuscular Hgb Conc. 33.6 g/dL (32.0-36.0)
[2022-08-27 07:44] LABS: Hematocrit 37.9 % (41.0-53.0); Hemoglobin 12.7 g/dL (13.5-17.5); Mean Corpuscular Hemoglobin 34.7 pg (28.0-32.0); Mean Corpuscular Volume 103.2 fL (80.0-100.0); Red Blood Cells 3.67 10^6/uL (4.5-5.90); Red Cell Distribution Width 14.1 % (11.8-14.3)
[2022-08-27 07:45] LABS: BUN/Creatinine Ratio 21.4 (10.0-20.0); Bilirubin, Total 0.8 mg/dL (0.2-1.0); Total Protein 7.1 g/dL (6.4-8.2)
[2022-08-27 07:57] LABS: White Blood Cell 1.5 10^3/uL (4.4-10.8)
[2022-08-27] MEDS ORDERED: methylPREDNISolone 4 MG TAB PO SCH (10:00)
[2022-08-27] MEDS: APIXABAN 2.5 MG TAB PO SCH ×3 (10:00→22:00)
[2022-08-27] MEDS ORDERED: ENOXAPARIN SOD 40 MG/0.4 ML SYRINGE SC SCH (10:00)
[2022-08-27 10:17] LABS: Band Neutrophils % (manual) 0; Basophils % (manual) 0 (0.0-2.0); Blast Cells 0; Eosinophils % (manual) 0 (0-7); Metamyelocytes % 0; Myelocytes % 0; Promyelocytes % 0; Reactive Lymphocytes 0
[2022-08-27 10:46] LABS: Lymphocytes % (manual) 27 (10.0-50.0); Monocytes % (manual) 5 (0-12)
[2022-08-27 13:00] VITALS: BP 128/73
[2022-08-27 16:53] VITALS: BP 123/64
[2022-08-28] VITALS (7 sets, daily range): BP systolic 116–146; BP diastolic 60–83
[2022-08-28] MEDS: IPRATROPIUM BROM 0.5 MG/2.5ML INH SOL NEB SCH ×4 (00:16→18:04)
[2022-08-28] MEDS: ALBUTEROL SULF 2.5 MG/0.5ML(0.5%) NEB SOLN NEB SCH ×4 (00:16→18:04)
[2022-08-28] MEDS: APIXABAN 2.5 MG TAB PO SCH ×2 (10:00→21:20)
[2022-08-28] MEDS: ACETAMINOPHEN 325 MG TAB PO PRN ×2 (10:05→21:19)
[2022-08-28] MEDS ORDERED: ONDANSETRON HCL 4 MG/2 ML VIAL IV PRN (10:45)
[2022-08-28] MEDS ORDERED: CARVEDILOL 3.125 MG TAB PO ONE (11:45)
[2022-08-28 13:48] LABS: BUN/Creatinine Ratio 21.4 (10.0-20.0); Calcium 8.3 mg/dL (8.5-10.1)
[2022-08-28] MEDS ORDERED: cefTRIAXone 1GM/50ML D5W 50 ML IV ONE (17:00)
[2022-08-28] MEDS ORDERED: AZITHROMYCIN 250 MG TAB PO ONE (17:00)
[2022-08-28 18:12] LABS: Basophils # (auto) 0 10 ^3/uL (0-0.2); Basophils % (auto) 0.2 % (0.0-2.0); Eosinophils # (auto) 0 10 ^3/uL (0-0.8); Eosinophils % (auto) 0.1 % (0.0-7.0); Lymphocytes # (auto) 0.9 10 ^3/uL (0.4-5.4); Mean Corpuscular Volume 103.7 fL (80.0-100.0); Monocytes # (auto) 0.7 10 ^3/uL (0-1.3); Nucleated Red Blood Cells % 0.1 %; White Blood Cell 4.6 10^3/uL (4.4-10.8)
[2022-08-28 18:14] LABS: Hematocrit 39.2 % (41.0-53.0); Hemoglobin 13.2 g/dL (13.5-17.5); Lymphocytes % (auto) 20.5 % (10.0-50.0); Mean Corpuscular Hemoglobin 34.9 pg (28.0-32.0); Mean Corpuscular Hgb Conc. 33.7 g/dL (32.0-36.0); Monocytes % (auto) 14.6 % (0.0-12.0); Neutrophils % (auto) 64.6 % (37.0-80.0); Red Blood Cells 3.78 10^6/uL (4.5-5.90); Red Cell Distribution Width 14.3 % (11.8-14.3)
[2022-08-28] MEDS: CARVEDILOL 3.125 MG TAB PO SCH (21:20)
[2022-08-29] MEDS: IPRATROPIUM BROM 0.5 MG/2.5ML INH SOL NEB SCH ×3 (00:11→13:05)
[2022-08-29] MEDS: ALBUTEROL SULF 2.5 MG/0.5ML(0.5%) NEB SOLN NEB SCH ×3 (00:11→13:04)
[2022-08-29 05:00] VITALS: BP 111/69
[2022-08-29 05:22] LABS: Basophils # (auto) 0 10 ^3/uL (0-0.2); Basophils % (auto) 0.3 % (0.0-2.0); Eosinophils # (auto) 0 10 ^3/uL (0-0.8); Eosinophils % (auto) 0.8 % (0.0-7.0); Hematocrit 37.4 % (41.0-53.0); Hemoglobin 13.1 g/dL (13.5-17.5); Lymphocytes # (auto) 1.3 10 ^3/uL (0.4-5.4); Lymphocytes % (auto) 29.8 % (10.0-50.0); Mean Corpuscular Hemoglobin 35.5 pg (28.0-32.0); Mean Corpuscular Hgb Conc. 34.9 g/dL (32.0-36.0); Mean Corpuscular Volume 101.8 fL (80.0-100.0); Monocytes # (auto) 0.6 10 ^3/uL (0-1.3); Monocytes % (auto) 13.7 % (0.0-12.0); Neutrophils # (auto) 2.4 10 ^3/uL (1.6-8.6); Neutrophils % (auto) 55.4 % (37.0-80.0); Nucleated Red Blood Cells % 0.1 %; Red Blood Cells 3.68 10^6/uL (4.5-5.90); Red Cell Distribution Width 14.4 % (11.8-14.3); White Blood Cell 4.4 10^3/uL (4.4-10.8)
[2022-08-29 06:08] LABS: Potassium 4.1 mmol/L (3.5-5.1)
[2022-08-29 06:12] LABS: BUN/Creatinine Ratio 29.3 (10.0-20.0); Calcium 8.1 mg/dL (8.5-10.1); Magnesium 2.2 mg/dL (1.6-2.6)
[2022-08-29 07:43] VITALS: BP 130/67
[2022-08-29 08:15] VITALS: BP 130/67
[2022-08-29] MEDS ORDERED: cefTRIAXone 1GM/50ML D5W 50 ML IV SCH (09:00)
[2022-08-29] MEDS ORDERED: VANCOMYCIN 1GM/250ML 250 ML IV ONE (09:00)
[2022-08-29] MEDS ORDERED: VANCOMYCIN PER PHARMACY 0 MG IV SCH (09:00)
[2022-08-29] MEDS: CARVEDILOL 3.125 MG TAB PO SCH (09:13)
[2022-08-29] MEDS: APIXABAN 2.5 MG TAB PO SCH (09:17)
[2022-08-29] MEDS ORDERED: MUPIROCIN 2% OINT 15gm or 22gm FOR MRSA NARES EACHNOSTRI SCH (10:00)
[2022-08-29] MEDS ORDERED: guaiFENesin-DM 100/10mg/5ml SYR PO PRN (11:00)
[2022-08-29 12:04] VITALS: BP 111/56
[2022-08-29] MEDS ORDERED: CAR3125T OR (16:04)
[2022-08-29] MEDS ORDERED: DOXY1CAP57 PO (16:04)
[2022-08-29] MEDS ORDERED: MUPI2CRE17 EX (16:04)
[2022-08-29 16:12] VITALS: BP 122/51
[2022-08-29 16:36] VITALS: BP 122/51
[2022-08-30] MEDS ORDERED: VANCOMYCIN 750mg/250ml 250 ML IV SCH (10:00)
== END 2022-08-29 17:15 | disposition home or self-care (01) | DRG 189 ==
LOC: ER 11:51 → OVERFLOW 17:05 → CENTRAL 08-27 11:43 → TELE-CENTR 08-28 13:01
PROVIDERS: ADMIT Nurse Practitioner Family; ATTEND Internal Medicine Geriatric Medicine
DX: J96.21 Acute and chronic respiratory failure with hypoxia (principal); E87.1 Hypo-osmolality and hyponatremia; I50.40 Unspecified combined systolic (congestive) and diastolic (congestive) heart failure; I48.21 Permanent atrial fibrillation; R64 Cachexia; Z68.1 Body mass index [BMI] 19.9 or less, adult; J84.9 Interstitial pulmonary disease, unspecified; J84.10 Pulmonary fibrosis, unspecified; J20.9 Acute bronchitis, unspecified; J43.9 Emphysema, unspecified; D70.9 Neutropenia, unspecified; I25.10 Atherosclerotic heart disease of native coronary artery without angina pectoris; M06.9 Rheumatoid arthritis, unspecified; N18.2 Chronic kidney disease, stage 2 (mild); R74.01 Elevation of levels of liver transaminase levels; B95.62 Methicillin resistant Staphylococcus aureus infection as the cause of diseases classified elsewhere; R62.7 Adult failure to thrive; Z82.49 Family history of ischemic heart disease and other diseases of the circulatory system; M19.90 Unspecified osteoarthritis, unspecified site; Z87.11 Personal history of peptic ulcer disease; Z79.01 Long term (current) use of anticoagulants
CPT/HCPCS: 36415; 71045; 71250; 80048; 80053; 83735; 83880; 83930; 84484; 84550; 85007; 85025; 85027; 85610; 85730; 87081; 93005; 94640; 96365; 96366; 96375; 97163; G0378; J0696; J1100; J3490

== ENCOUNTER 2023-08-20 12:09 | Inpatient (IN) | payer MEDICARE, OTHER ==
[~2023-08-20] VITALS: Ht 180.3 cm; Wt 53.4 kg
[~2023-08-20 12:09] MED LIST changes: +CARV-214 OR; +DOXY1CAP57 PO; -LEVO500T31 PO; -LIDO2SOL26 MT; -METH4PAK PO; +MUPI2CRE17 EX
[2023-08-20 13:07] LABS: Basophils # (auto) 0.1 10 ^3/uL (0-0.2); Basophils % (auto) 1.8 % (0.0-2.0); Eosinophils # (auto) 0 10 ^3/uL (0-0.8); Eosinophils % (auto) 0.3 % (0.0-7.0); Hematocrit 40.1 % (41.0-53.0); Hemoglobin 13.6 g/dL (13.5-17.5); Lymphocytes # (auto) 0.7 10 ^3/uL (0.4-5.4); Lymphocytes % (auto) 10.1 % (10.0-50.0); Mean Corpuscular Hemoglobin 33.8 pg (28.0-32.0); Mean Corpuscular Hgb Conc. 33.9 g/dL (32.0-36.0); Mean Corpuscular Volume 99.9 fL (80.0-100.0); Monocytes # (auto) 0.5 10 ^3/uL (0-1.3); Monocytes % (auto) 6.6 % (0.0-12.0); Neutrophils # (auto) 5.9 10 ^3/uL (1.6-8.6); Neutrophils % (auto) 81.2 % (37.0-80.0); Red Blood Cells 4.01 10^6/uL (4.5-5.90); Red Cell Distribution Width 13.8 % (11.8-14.3); White Blood Cell 7.3 10^3/uL (4.4-10.8)
[2023-08-20 13:15] LABS: Alanine Aminotransferase 25 U/L (7-40); Albumin 3.9 g/dL (3.2-4.8); Alkaline Phosphatase 282 U/L (46-116); Anion Gap 4 (5-15); Aspartate Aminotransferase 32 U/L (13-40); BUN/Creatinine Ratio 18.8 (10.0-20.0); Bilirubin, Total 1.2 mg/dL (0.2-1.0); Blood Urea Nitrogen 19 mg/dL (9-23); Calcium 9.7 mg/dL (8.7-10.4); Carbon Dioxide 28 mmol/L (20-30); Chloride 101 mmol/L (98-107); Glucose 95 mg/dL (74-106); Magnesium 2.1 mg/dL (1.6-2.6); Potassium 4.9 mmol/L (3.5-5.1); Sodium 133 mmol/L (136-145)
[2023-08-20 13:28] LABS: INR 1.3 (0.9-1.15); Partial Thromboplastin Time 28.1 SEC (24.5-34.5); Prothrombin Time 13.5 sec (9.3-11.8)
[2023-08-20] MEDS: dilTIAZem 25 MG/5 ML VIAL IV ONE (13:29)
[2023-08-20] MEDS: methylPREDNISolone SOD SUCC 125 MG/2 ML VL IV ONE (13:29)
[2023-08-20] MEDS: FUROSEMIDE 40 MG/4 ML VIAL IV ONE (15:09)
[2023-08-20] MEDS ORDERED: NITROGLYCERIN 0.4 MG SL TAB SL PRN (15:45)
[2023-08-20] MEDS: AZITHROMYCIN 500MG/ 250ML 250 ML IV ONE (15:45)
[2023-08-20] MEDS ORDERED: MORPHINE SULFATE INJ 2 MG/ml SYRG IV PRN (15:45)
[2023-08-20] MEDS: cefTRIAXone 1GM/50ML D5W 50 ML IV ONE (15:45)
[2023-08-20] MEDS: METOPROLOL TARTRATE 25 MG TAB PO ONE (16:40)
[2023-08-20 17:25] LABS: Urine Bacteria None Seen /hpf (None Seen); Urine WBC None Seen /hpf (0 - 3)
[2023-08-20 17:27] LABS: Urine Blood Negative /uL (Negative); Urine Clarity Clear (Clear); Urine Color Colorless (Yellow); Urine Protein, UAD Negative (Negative); Urine Specific Gravity 1.005 (1.001-1.035); Urine Urobilinogen Normal (Negative)
[2023-08-20 18:19] VITALS: PULSE 91; RESP 18; O2SAT 98
[2023-08-20] MEDS: LEVALBUTEROL HCL 1.25 MG/3 ML NEB NEB SCH (18:19)
[2023-08-20 18:25] VITALS: PULSE 94; RESP 18; O2SAT 100
[2023-08-20 21:50] VITALS: PULSE 93; RESP 25; O2SAT 93
[2023-08-20] MEDS: TAMSULOSIN HYDROCHLORIDE 0.4 MG CAP PO SCH (22:23)
[2023-08-20] MEDS: ACETAMINOPHEN 500 MG TAB PO ONE (22:23)
[2023-08-20] MEDS: METOPROLOL TARTRATE 25 MG TAB PO SCH (22:24)
[2023-08-21] VITALS (17 sets, daily range): BP systolic 102–133; BP diastolic 59–92; PULSE 65–111; RESP 15–21; TEMP 97.4–98.3; O2SAT 91–100
[2023-08-21 06:46] LABS: Basophils # (auto) 0 10 ^3/uL (0-0.2); Eosinophils # (auto) 0 10 ^3/uL (0-0.8); Hemoglobin 13.6 g/dL (13.5-17.5); Lymphocytes # (auto) 0.3 10 ^3/uL (0.4-5.4); Monocytes # (auto) 0.2 10 ^3/uL (0-1.3); Red Cell Distribution Width 13.7 % (11.8-14.3)
[2023-08-21 06:50] LABS: Hematocrit 39.4 % (41.0-53.0); Lymphocytes % (auto) 5.5 % (10.0-50.0); Mean Corpuscular Hemoglobin 34.9 pg (28.0-32.0); Mean Corpuscular Hgb Conc. 34.6 g/dL (32.0-36.0); Mean Corpuscular Volume 100.8 fL (80.0-100.0); Neutrophils # (auto) 4.7 10 ^3/uL (1.6-8.6); Neutrophils % (auto) 90.5 % (37.0-80.0); Nucleated Red Blood Cells % 0.1 %; Red Blood Cells 3.91 10^6/uL (4.5-5.90); White Blood Cell 5.2 10^3/uL (4.4-10.8)
[2023-08-21 07:05] LABS: Alanine Aminotransferase 21 U/L (7-40); Albumin 3.6 g/dL (3.2-4.8); Alkaline Phosphatase 252 U/L (46-116); Anion Gap 4 (5-15); Aspartate Aminotransferase 24 U/L (13-40); BUN/Creatinine Ratio 16.4 (10.0-20.0); Bilirubin, Total 1.2 mg/dL (0.2-1.0); Blood Urea Nitrogen 25 mg/dL (9-23); Calcium 9.9 mg/dL (8.5-10.1); Carbon Dioxide 32 mmol/L (20-30); Chloride 98 mmol/L (98-107); Glucose 191 mg/dL (74-106); Potassium 4.8 mmol/L (3.5-5.1); Sodium 134 mmol/L (136-145); Total Protein 6.7 g/dL (5.7-8.2)
[2023-08-21] MEDS: cefTRIAXone 1GM/50ML D5W 50 ML IV SCH (09:17)
[2023-08-21] MEDS: ACETAMINOPHEN 500 MG TAB PO PRN (09:21)
[2023-08-21] MEDS: FUROSEMIDE 20 MG/2 ML VIAL IV SCH (09:24)
[2023-08-21] MEDS: AZITHROMYCIN 500MG/ 250ML 250 ML IV SCH (10:20)
[2023-08-21 14:14] LABS: COVID19 ANTIGEN SOFIA FIA NEGATIVE (NEGATIVE); Rapid Influenza A Negative (Negative); Rapid Influenza B Negative (Negative)
[2023-08-21] MEDS: MELATONIN 5 MG TAB PO SCH (21:54)
[2023-08-22] VITALS (8 sets, daily range): BP systolic 128–136; BP diastolic 63–70; PULSE 74–90; RESP 17–18; TEMP 97.6–98.1; O2SAT 95–100
[2023-08-22 05:37] LABS: Basophils # (auto) 0 10 ^3/uL (0-0.2); Eosinophils # (auto) 0 10 ^3/uL (0-0.8); Hemoglobin 12.9 g/dL (13.5-17.5); Monocytes # (auto) 0.8 10 ^3/uL (0-1.3); White Blood Cell 10.7 10^3/uL (4.4-10.8)
[2023-08-22 05:40] LABS: Basophils % (auto) 0.2 % (0.0-2.0); Eosinophils % (auto) 0.1 % (0.0-7.0); Hematocrit 37.6 % (41.0-53.0); Lymphocytes # (auto) 0.8 10 ^3/uL (0.4-5.4); Lymphocytes % (auto) 7.1 % (10.0-50.0); Mean Corpuscular Hemoglobin 34.3 pg (28.0-32.0); Mean Corpuscular Hgb Conc. 34.3 g/dL (32.0-36.0); Mean Corpuscular Volume 100.2 fL (80.0-100.0); Monocytes % (auto) 7.3 % (0.0-12.0); Neutrophils # (auto) 9.2 10 ^3/uL (1.6-8.6); Neutrophils % (auto) 85.3 % (37.0-80.0); Red Blood Cells 3.75 10^6/uL (4.5-5.90); Red Cell Distribution Width 13.9 % (11.8-14.3)
[2023-08-22 05:44] LABS: Anion Gap 2 (5-15); Calcium 9.4 mg/dL (8.7-10.4); Carbon Dioxide 33 mmol/L (20-30); Chloride 97 mmol/L (98-107); Potassium 4.4 mmol/L (3.5-5.1); Sodium 132 mmol/L (136-145)
[2023-08-22 05:50] LABS: BUN/Creatinine Ratio 21.1 (10.0-20.0); Blood Urea Nitrogen 27 mg/dL (9-23); Glucose 102 mg/dL (74-106)
[2023-08-22] MEDS ORDERED: METO25TA5 PO (12:09)
[2023-08-22] MEDS ORDERED: DOXY-346 PO (12:09)
[2023-08-22] MEDS ORDERED: MUPIROCIN 2% OINT 15gm or 22gm FOR MRSA NARES EACHNOSTRI SCH (22:00)
== END 2023-08-22 15:00 | disposition home or self-care (01) | DRG 177 ==
LOC: ER 12:12 → TELE 15:50 → TELE-WESTW 23:48
PROVIDERS: ADMIT Registered Nurse; ATTEND Registered Nurse
DX: J15.69 Pneumonia due to other Gram-negative bacteria (principal); I50.33 Acute on chronic diastolic (congestive) heart failure; J96.20 Acute and chronic respiratory failure, unspecified whether with hypoxia or hypercapnia; J44.1 Chronic obstructive pulmonary disease with (acute) exacerbation; I48.19 Other persistent atrial fibrillation; N17.9 Acute kidney failure, unspecified; R64 Cachexia; J44.0 Chronic obstructive pulmonary disease with (acute) lower respiratory infection; I11.0 Hypertensive heart disease with heart failure; J15.9 Unspecified bacterial pneumonia; N40.0 Benign prostatic hyperplasia without lower urinary tract symptoms; E78.5 Hyperlipidemia, unspecified; I08.1 Rheumatic disorders of both mitral and tricuspid valves; Z20.822 Contact with and (suspected) exposure to COVID-19; I71.20 Thoracic aortic aneurysm, without rupture, unspecified; Z82.49 Family history of ischemic heart disease and other diseases of the circulatory system
CPT/HCPCS: 36415; 71045; 80048; 80053; 81001; 82962; 83605; 83735; 83880; 84443; 84484; 85025; 85610; 85730; 87040; 87081; 87426; 87804; 93005; 93306; 94640; 96365; 96368; 96375; 99291; G0378

== ENCOUNTER 2023-09-03 09:21 | Inpatient (IN) | payer MEDICARE, OTHER ==
[~2023-09-03] VITALS: Ht 180.3 cm; Wt 54.4 kg
[~2023-09-03 09:21] MED LIST changes: +DOXY-346 PO; +METO25TA5 PO
[2023-09-03] MEDS: dilTIAZem 25 MG/5 ML VIAL IV ONE (10:02)
[2023-09-03 10:09] VITALS: PULSE 81; RESP 26
[2023-09-03 10:18] LABS: Eosinophils # (auto) 0 10 ^3/uL (0-0.8); Hemoglobin 13.6 g/dL (13.5-17.5); Neutrophils # (auto) 5.7 10 ^3/uL (1.6-8.6); Nucleated Red Blood Cells % 0.1 %; Red Blood Cells 3.91 10^6/uL (4.5-5.90)
[2023-09-03 10:20] LABS: Basophils # (auto) 0.1 10 ^3/uL (0-0.2); Basophils % (auto) 0.8 % (0.0-2.0); Eosinophils % (auto) 0.5 % (0.0-7.0); Hematocrit 39.6 % (41.0-53.0); Lymphocytes # (auto) 0.8 10 ^3/uL (0.4-5.4); Lymphocytes % (auto) 10.6 % (10.0-50.0); Mean Corpuscular Hemoglobin 34.7 pg (28.0-32.0); Mean Corpuscular Hgb Conc. 34.2 g/dL (32.0-36.0); Mean Corpuscular Volume 101.5 fL (80.0-100.0); Monocytes # (auto) 0.6 10 ^3/uL (0-1.3); Monocytes % (auto) 7.8 % (0.0-12.0); Neutrophils % (auto) 80.3 % (37.0-80.0); Red Cell Distribution Width 14.4 % (11.8-14.3); White Blood Cell 7.1 10^3/uL (4.4-10.8)
[2023-09-03 10:35] LABS: Chloride 104 mmol/L (98-107); Sodium 136 mmol/L (136-145)
[2023-09-03 10:36] LABS: Anion Gap 6 (5-15); Calcium 9.6 mg/dL (8.5-10.1); Carbon Dioxide 26 mmol/L (20-30)
[2023-09-03 10:41] LABS: Glucose 84 mg/dL (74-106); Magnesium 2.2 mg/dL (1.6-2.6)
[2023-09-03 11:18] LABS: BUN/Creatinine Ratio 20.7 (10.0-20.0); Blood Urea Nitrogen 24 mg/dL (9-23)
[2023-09-03 11:19] LABS: Potassium 5.4 mmol/L (3.5-5.1)
[2023-09-03] MEDS: ACETAMINOPHEN 325 MG TAB PO ONE (13:58)
[2023-09-03 14:30] VITALS: BP 140/76; PULSE 99; RESP 15; TEMP 98.7; O2SAT 99
[2023-09-03] MEDS ORDERED: HYDROcodone-ACET 5/325MG TAB PO PRN (14:30)
[2023-09-03] MEDS ORDERED: ONDANSETRON HCL 4 MG/2 ML VIAL IV PRN (14:30)
[2023-09-03] MEDS ORDERED: DOCUSATE SOD 100 MG CAP PO PRN (14:30)
[2023-09-03] MEDS ORDERED: MORPHINE SULFATE INJ 2 MG/ml SYRG IV PRN (14:30)
[2023-09-03] MEDS ORDERED: NITROGLYCERIN 0.4 MG SL TAB SL PRN (14:30)
[2023-09-03] MEDS: AZITHROMYCIN 500MG/ 250ML 250 ML IV ONE (14:47)
[2023-09-03] MEDS: ALBUTEROL SULF 2.5 MG/0.5ML(0.5%) NEB SOLN NEB SCH (18:27)
[2023-09-03] MEDS: IPRATROPIUM BROM 0.5 MG/2.5ML INH SOL NEB SCH (18:27)
[2023-09-03 19:45] VITALS: PULSE 86; RESP 24; O2SAT 96
[2023-09-03] MEDS ORDERED: METOPROLOL TARTRATE 25 MG TAB PO SCH (22:00)
[2023-09-03] MEDS: SODIUM CHLOR 0.9% PF (SALINE LOCK) 10ML VIAL/SYR IV SCH (22:22)
[2023-09-03] MEDS: methylPREDNISolone SOD SUCC 40 MG/ML VL IV SCH (22:23)
[2023-09-03] MEDS: CARVEDILOL 3.125 MG TAB PO SCH (22:24)
[2023-09-03 23:57] VITALS: BP 134/67; PULSE 106; RESP 18; RESP 20; TEMP 98.6; O2SAT 100; O2SAT 96
[2023-09-04] VITALS (16 sets, daily range): BP systolic 107–138; BP diastolic 51–85; PULSE 73–107; RESP 16–20; TEMP 96.8–97.7; O2SAT 96–100
[2023-09-04] MEDS: MELATONIN 5 MG TAB PO ONE (01:04)
[2023-09-04] MEDS ORDERED: HYDR200T36 PO (01:48)
[2023-09-04] MEDS ORDERED: TAMS-35 PO (01:48)
[2023-09-04] MEDS: ACETAMINOPHEN 325 MG TAB PO PRN (06:17)
[2023-09-04] MEDS: AZITHROMYCIN 500MG/ 250ML 250 ML IV SCH (09:37)
[2023-09-04 09:58] LABS: Basophils # (auto) 0 10 ^3/uL (0-0.2); Eosinophils # (auto) 0 10 ^3/uL (0-0.8); Hematocrit 39.8 % (41.0-53.0); Lymphocytes # (auto) 0.4 10 ^3/uL (0.4-5.4); Monocytes # (auto) 0.1 10 ^3/uL (0-1.3); Neutrophils # (auto) 3.1 10 ^3/uL (1.6-8.6); White Blood Cell 3.6 10^3/uL (4.4-10.8)
[2023-09-04 10:00] LABS: Basophils % (auto) 0.3 % (0.0-2.0); Hemoglobin 13.7 g/dL (13.5-17.5); Lymphocytes % (auto) 10.5 % (10.0-50.0); Mean Corpuscular Hemoglobin 35.1 pg (28.0-32.0); Mean Corpuscular Hgb Conc. 34.5 g/dL (32.0-36.0); Mean Corpuscular Volume 101.7 fL (80.0-100.0); Monocytes % (auto) 3.6 % (0.0-12.0); Neutrophils % (auto) 85.6 % (37.0-80.0); Nucleated Red Blood Cells % 0.1 %; Red Blood Cells 3.91 10^6/uL (4.5-5.90); Red Cell Distribution Width 14.4 % (11.8-14.3)
[2023-09-04 10:29] LABS: Alanine Aminotransferase 21 U/L (7-40); Albumin 3.6 g/dL (3.2-4.8); Alkaline Phosphatase 192 U/L (46-116); Anion Gap 5 (5-15); Aspartate Aminotransferase 29 U/L (13-40); BUN/Creatinine Ratio 20.8 (10.0-20.0); Bilirubin, Total 1.6 mg/dL (0.2-1.0); Blood Urea Nitrogen 25 mg/dL (9-23); Calcium 9.4 mg/dL (8.7-10.4); Carbon Dioxide 27 mmol/L (20-30); Chloride 101 mmol/L (98-107); Glucose 166 mg/dL (74-106); Potassium 4.9 mmol/L (3.5-5.1); Sodium 133 mmol/L (136-145); Total Protein 6.4 g/dL (5.7-8.2)
[2023-09-04] MEDS ORDERED: cefTRIAXone 1GM/50ML D5W 50 ML IV ONE (12:15)
[2023-09-04 18:03] LABS: COVID19 ANTIGEN SOFIA FIA NEGATIVE (NEGATIVE); Rapid Influenza A Negative (Negative); Rapid Influenza B Negative (Negative)
[2023-09-04] MEDS: CEFEPIME 2GM/50ML NS 50 ML IV SCH (20:54)
[2023-09-04] MEDS: MELATONIN 5 MG TAB PO SCH (20:54)
[2023-09-04] MEDS: MUPIROCIN 2% OINT 15gm or 22gm FOR MRSA NARES EACHNOSTRI SCH (22:00)
[2023-09-05] VITALS (11 sets, daily range): BP systolic 119–125; BP diastolic 66–71; PULSE 63–90; RESP 14–19; TEMP 97.3–98.2; O2SAT 94–100
[2023-09-05] MEDS ORDERED: cefTRIAXone 1GM/50ML D5W 50 ML IV SCH (09:00)
[2023-09-05] MEDS ORDERED: DOXY-286 PO (10:20)
[2023-09-05] MEDS ORDERED: MUPI2CRE17 EX (10:20)
== END 2023-09-05 14:30 | disposition home or self-care (01) | DRG 177 ==
LOC: ER 09:21 → TELE 14:21 → TELE-EAST 23:38
PROVIDERS: ADMIT Nurse Practitioner Family; ATTEND Nurse Practitioner Family
DX: J15.69 Pneumonia due to other Gram-negative bacteria (principal); I50.33 Acute on chronic diastolic (congestive) heart failure; J96.01 Acute respiratory failure with hypoxia; J44.1 Chronic obstructive pulmonary disease with (acute) exacerbation; I48.20 Chronic atrial fibrillation, unspecified; J44.0 Chronic obstructive pulmonary disease with (acute) lower respiratory infection; I38 Endocarditis, valve unspecified; J15.9 Unspecified bacterial pneumonia; Z20.822 Contact with and (suspected) exposure to COVID-19; I11.0 Hypertensive heart disease with heart failure; N40.0 Benign prostatic hyperplasia without lower urinary tract symptoms; E78.5 Hyperlipidemia, unspecified; I34.0 Nonrheumatic mitral (valve) insufficiency
CPT/HCPCS: 36415; 71045; 80048; 80053; 83735; 83880; 84484; 85025; 87081; 87426; 87804; 93005; 94640; G0378; J0692

== ENCOUNTER 2023-09-09 07:55 | Emergency (ER) | payer MEDICARE ==
[~2023-09-09] VITALS: Ht 170.2 cm; Wt 56.3 kg
[~2023-09-09 07:55] MED LIST changes: -APIX5TAB PO; +DOXY-286 PO; -DOXY1CAP57 PO; +HYDR200T36 PO; +TAMS-35 PO
[2023-09-09] MEDS: FAMOTIDINE (10MG/ML) 2ML VL IV ONE (08:59)
[2023-09-09] MEDS: diphenhdrAMINE HCL 50 MG/1 ML VL IV ONE (08:59)
[2023-09-09] MEDS: HYDROCORTISONE SOD SUCC 100 MG/2ML INJ VIAL IV ONE (08:59)
[2023-09-09] MEDS: predniSONE 20 MG TAB PO ONE (08:59)
[2023-09-09 09:08] LABS: Basophils # (auto) 0 10 ^3/uL (0-0.2); Basophils % (auto) 0.4 % (0.0-2.0); Eosinophils # (auto) 0.1 10 ^3/uL (0-0.8); Eosinophils % (auto) 1.4 % (0.0-7.0); Hemoglobin 13.8 g/dL (13.5-17.5); Lymphocytes # (auto) 0.7 10 ^3/uL (0.4-5.4); Lymphocytes % (auto) 12.9 % (10.0-50.0); Mean Corpuscular Hemoglobin 34.4 pg (28.0-32.0); Mean Corpuscular Hgb Conc. 33.7 g/dL (32.0-36.0); Mean Corpuscular Volume 102.1 fL (80.0-100.0); Monocytes # (auto) 0.4 10 ^3/uL (0-1.3); Monocytes % (auto) 7.7 % (0.0-12.0); Neutrophils # (auto) 4.2 10 ^3/uL (1.6-8.6); Neutrophils % (auto) 77.6 % (37.0-80.0); Nucleated Red Blood Cells % 0.1 %; Red Blood Cells 4.01 10^6/uL (4.5-5.90); Red Cell Distribution Width 14.4 % (11.8-14.3); White Blood Cell 5.5 10^3/uL (4.4-10.8)
[2023-09-09 09:26] LABS: Alanine Aminotransferase 29 U/L (7-40); Alkaline Phosphatase 194 U/L (46-116); Anion Gap 2 (5-15); Aspartate Aminotransferase 42 U/L (13-40); BUN/Creatinine Ratio 16.7 (10.0-20.0); Blood Urea Nitrogen 16 mg/dL (9-23); Calcium 9.6 mg/dL (8.5-10.1); Carbon Dioxide 31 mmol/L (20-30); Chloride 103 mmol/L (98-107); Glucose 92 mg/dL (74-106); Potassium 4.5 mmol/L (3.5-5.1); Sodium 136 mmol/L (136-145)
[2023-09-09 09:27] LABS: Bilirubin, Total 1.9 mg/dL (0.2-1.0); Total Protein 6.6 g/dL (5.7-8.2)
[2023-09-09 09:30] VITALS: PULSE 85; RESP 19; TEMP 97.8; O2SAT 99
[2023-09-09] MEDS ORDERED: PRED1PAK9 PO (12:20)
[2023-09-09] MEDS ORDERED: FAMO20TA10 PO (12:20)
[2023-09-09] MEDS ORDERED: EPIN0.1I11 IJ (12:20)
[2023-09-09 12:40] VITALS: BP 134/81; PULSE 102; RESP 23; O2SAT 97
== END 2023-09-09 12:46 | disposition home or self-care (01) ==
LOC: ER 07:55
DX: T78.3XXA Angioneurotic edema, initial encounter (principal); I48.91 Unspecified atrial fibrillation; M19.90 Unspecified osteoarthritis, unspecified site; I50.9 Heart failure, unspecified; J44.9 Chronic obstructive pulmonary disease, unspecified; Z90.89 Acquired absence of other organs; Z79.899 Other long term (current) drug therapy; X58.XXXA Exposure to other specified factors, initial encounter; Y93.89 Activity, other specified; Y92.89 Other specified places as the place of occurrence of the external cause; Y99.8 Other external cause status
CPT/HCPCS: 36415; 80053; 85025; 96374; 96375; 99284; J1200; J1720; J3490; J7512

== ENCOUNTER 2023-09-19 10:09 | Inpatient (IN) | payer OTHER, MEDICARE ==
[~2023-09-19] VITALS: Ht 162.6 cm; Wt 56.6 kg
[~2023-09-19 10:09] MED LIST changes: +EPIN0.1I11 IJ; +FAMO20TA10 PO; +PRED1PAK9 PO
[2023-09-19 11:14] LABS: Basophils # (auto) 0 10 ^3/uL (0-0.2); Basophils % (auto) 0.5 % (0.0-2.0); Eosinophils # (auto) 0 10 ^3/uL (0-0.8); Eosinophils % (auto) 0.5 % (0.0-7.0); Hematocrit 38.2 % (41.0-53.0); Hemoglobin 13.1 g/dL (13.5-17.5); Lymphocytes # (auto) 0.8 10 ^3/uL (0.4-5.4); Lymphocytes % (auto) 10.5 % (10.0-50.0); Mean Corpuscular Hemoglobin 35.3 pg (28.0-32.0); Mean Corpuscular Hgb Conc. 34.3 g/dL (32.0-36.0); Mean Corpuscular Volume 102.9 fL (80.0-100.0); Monocytes # (auto) 0.6 10 ^3/uL (0-1.3); Monocytes % (auto) 8.6 % (0.0-12.0); Neutrophils # (auto) 5.7 10 ^3/uL (1.6-8.6); Neutrophils % (auto) 79.9 % (37.0-80.0); Red Blood Cells 3.72 10^6/uL (4.5-5.90); Red Cell Distribution Width 14.7 % (11.8-14.3); White Blood Cell 7.1 10^3/uL (4.4-10.8)
[2023-09-19 11:28] LABS: Base Excess 0.1 mmol/L (-2.0-2.0)
[2023-09-19 11:31] LABS: INR 1.33 (0.9-1.15); Partial Thromboplastin Time 27.5 SEC (24.5-34.5); Prothrombin Time 13.8 sec (9.3-11.8)
[2023-09-19 11:34] LABS: Alanine Aminotransferase 36 U/L (7-40); Albumin 3.8 g/dL (3.2-4.8); Alkaline Phosphatase 183 U/L (46-116); Anion Gap 4 (5-15); Aspartate Aminotransferase 45 U/L (13-40); Blood Urea Nitrogen 19 mg/dL (9-23); Calcium 9.5 mg/dL (8.5-10.1); Carbon Dioxide 27 mmol/L (20-30); Chloride 106 mmol/L (98-107); Glucose 82 mg/dL (74-106); Potassium 4.7 mmol/L (3.5-5.1); Sodium 137 mmol/L (136-145)
[2023-09-19] MEDS: dilTIAZem 25 MG/5 ML VIAL IV ONE (13:09)
[2023-09-19 13:11] LABS: Urine Bacteria None Seen /hpf (None Seen)
[2023-09-19] MEDS: VANCOMYCIN 1GM/200ML 200 ML IV ONE (13:15)
[2023-09-19 13:24] LABS: Urine Blood Negative /uL (Negative); Urine Clarity Clear (Clear); Urine Color Yellow (Yellow); Urine Hyaline Cast FEW /lpf (0 - 2); Urine Mucus FEW (None Seen); Urine Protein, UAD 1+ (Negative); Urine Specific Gravity 1.024 (1.001-1.035); Urine Urobilinogen Normal (Negative); Urine WBC 5 /hpf (0 - 3)
[2023-09-19] MEDS: FUROSEMIDE 20 MG/2 ML VIAL IV ONE (13:26)
[2023-09-19] MEDS: TAMSULOSIN HYDROCHLORIDE 0.4 MG CAP PO SCH (18:02)
[2023-09-19 19:30] VITALS: PULSE 123; RESP 33; O2SAT 99
[2023-09-19] MEDS ORDERED: CARVEDILOL 3.125 MG TAB PO SCH (22:00)
[2023-09-19 23:30] VITALS: BP 125/63; PULSE 93; RESP 20; TEMP 97.5; O2SAT 97
[2023-09-20] VITALS (7 sets, daily range): BP systolic 128–134; BP diastolic 71–78; PULSE 87–108; RESP 17–19; TEMP 97.5–98.3; O2SAT 95–100
[2023-09-20] MEDS: TEMAZEPAM 15 MG CAP PO PRN (01:01)
[2023-09-20] MEDS ORDERED: ZOLP10TA PO (03:43)
[2023-09-20 05:48] LABS: Basophils # (auto) 0.1 10 ^3/uL (0-0.2); Eosinophils # (auto) 0 10 ^3/uL (0-0.8)
[2023-09-20 05:52] LABS: Basophils % (auto) 0.8 % (0.0-2.0); Eosinophils % (auto) 0.4 % (0.0-7.0); Hematocrit 38.5 % (41.0-53.0); Hemoglobin 12.8 g/dL (13.5-17.5); Lymphocytes # (auto) 0.7 10 ^3/uL (0.4-5.4); Lymphocytes % (auto) 9.2 % (10.0-50.0); Mean Corpuscular Hemoglobin 34.4 pg (28.0-32.0); Mean Corpuscular Hgb Conc. 33.3 g/dL (32.0-36.0); Mean Corpuscular Volume 103.2 fL (80.0-100.0); Monocytes # (auto) 0.7 10 ^3/uL (0-1.3); Monocytes % (auto) 9.4 % (0.0-12.0); Neutrophils # (auto) 6.1 10 ^3/uL (1.6-8.6); Neutrophils % (auto) 80.2 % (37.0-80.0); Nucleated Red Blood Cells % 0.2 %; Red Blood Cells 3.73 10^6/uL (4.5-5.90); Red Cell Distribution Width 14.5 % (11.8-14.3); White Blood Cell 7.6 10^3/uL (4.4-10.8)
[2023-09-20 06:11] LABS: Alanine Aminotransferase 32 U/L (7-40); Alkaline Phosphatase 160 U/L (46-116); Anion Gap 6 (5-15); Aspartate Aminotransferase 37 U/L (13-40); BUN/Creatinine Ratio 19.5 (10.0-20.0); Blood Urea Nitrogen 22 mg/dL (9-23); Calcium 9.2 mg/dL (8.5-10.1); Carbon Dioxide 27 mmol/L (20-30); Chloride 105 mmol/L (98-107); Glucose 94 mg/dL (74-106); Sodium 138 mmol/L (136-145); Total Protein 5.7 g/dL (5.7-8.2)
[2023-09-20 06:12] LABS: Albumin 3.6 g/dL (3.2-4.8)
[2023-09-20] MEDS ORDERED: ENOXAPARIN SOD 30 MG/0.3 ML SYRINGE SC SCH (10:00)
[2023-09-20] MEDS: FUROSEMIDE 20 MG/2 ML VIAL IV SCH (10:22)
[2023-09-20] MEDS: METOPROLOL TARTRATE 25 MG TAB PO ONE (13:05)
[2023-09-20] MEDS: PANTOPRAZOLE 40 MG TAB PO ONE (18:56)
[2023-09-20] MEDS: hydrOXYchloroQUINE SULFATE 200 MG TAB PO SCH (21:28)
[2023-09-20] MEDS: METOPROLOL TARTRATE 25 MG TAB PO SCH (21:28)
[2023-09-21 01:00] VITALS: BP 131/66; PULSE 136; RESP 17; TEMP 97.5; O2SAT 98
[2023-09-21] MEDS: ACETAMINOPHEN 325 MG TAB PO PRN (01:02)
[2023-09-21 05:00] VITALS: BP 128/66; PULSE 83; RESP 18; TEMP 98.4; O2SAT 98
[2023-09-21] MEDS: PANTOPRAZOLE 40 MG TAB PO SCH (05:38)
[2023-09-21 07:31] LABS: Basophils # (auto) 0.1 10 ^3/uL (0-0.2); Basophils % (auto) 0.9 % (0.0-2.0); Eosinophils # (auto) 0 10 ^3/uL (0-0.8); Hemoglobin 14.1 g/dL (13.5-17.5); Monocytes # (auto) 0.7 10 ^3/uL (0-1.3)
[2023-09-21 07:33] LABS: Eosinophils % (auto) 0.6 % (0.0-7.0); Hematocrit 41.8 % (41.0-53.0); Lymphocytes % (auto) 13.9 % (10.0-50.0); Mean Corpuscular Hemoglobin 34.9 pg (28.0-32.0); Mean Corpuscular Hgb Conc. 33.7 g/dL (32.0-36.0); Mean Corpuscular Volume 103.5 fL (80.0-100.0); Monocytes % (auto) 9.8 % (0.0-12.0); Neutrophils # (auto) 5.2 10 ^3/uL (1.6-8.6); Neutrophils % (auto) 74.8 % (37.0-80.0); Nucleated Red Blood Cells % 0.1 %; Red Blood Cells 4.04 10^6/uL (4.5-5.90); Red Cell Distribution Width 15.1 % (11.8-14.3); White Blood Cell 6.9 10^3/uL (4.4-10.8)
[2023-09-21 07:48] LABS: Calcium 9.4 mg/dL (8.5-10.1); Chloride 101 mmol/L (98-107); Potassium 4.6 mmol/L (3.5-5.1); Sodium 135 mmol/L (136-145)
[2023-09-21 07:49] LABS: Anion Gap 4 (5-15); Carbon Dioxide 30 mmol/L (20-30)
[2023-09-21 07:54] LABS: BUN/Creatinine Ratio 21.8 (10.0-20.0); Blood Urea Nitrogen 26 mg/dL (9-23); Glucose 103 mg/dL (74-106)
[2023-09-21 08:00] VITALS: PULSE 75
[2023-09-21 09:00] VITALS: BP 123/59; PULSE 79; RESP 20; TEMP 98.6; O2SAT 98
[2023-09-21] MEDS: EMPAGLIFLOZIN 10 MG TAB PO SCH (10:42)
[2023-09-21] MEDS ORDERED: FURO20TA3 PO (11:42)
[2023-09-21] MEDS ORDERED: EMPA1TAB PO (11:42)
[2023-09-21 13:13] VITALS: BP 119/66; PULSE 75; RESP 20; TEMP 98.9; O2SAT 98
[2023-09-21 15:16] VITALS: BP 119/64; PULSE 70
== END 2023-09-21 16:50 | disposition home or self-care (01) | DRG 291 ==
LOC: ER 10:09 → TELE 17:06 → TELE-CENTR 17:06
PROVIDERS: ADMIT Internal Medicine Geriatric Medicine; ATTEND Neuromusculoskeletal Medicine & OMM
DX: I11.0 Hypertensive heart disease with heart failure (principal); I50.33 Acute on chronic diastolic (congestive) heart failure; I48.19 Other persistent atrial fibrillation; K70.9 Alcoholic liver disease, unspecified; J44.9 Chronic obstructive pulmonary disease, unspecified; M06.9 Rheumatoid arthritis, unspecified; N40.0 Benign prostatic hyperplasia without lower urinary tract symptoms; I27.20 Pulmonary hypertension, unspecified; I87.8 Other specified disorders of veins; G47.00 Insomnia, unspecified; Z79.899 Other long term (current) drug therapy; Z79.2 Long term (current) use of antibiotics; Z82.49 Family history of ischemic heart disease and other diseases of the circulatory system
CPT/HCPCS: 36415; 36600; 71045; 80048; 80053; 81001; 82805; 83605; 83735; 83880; 84484; 85025; 85379; 85610; 85730; 87081; 93005; 93925; 93970; G0378

== ENCOUNTER 2024-03-11 14:02 | Inpatient (IN) | payer OTHER, MEDICARE ==
[~2024-03-11] VITALS: Ht 180.3 cm; Wt 58.3 kg
[~2024-03-11 14:02] MED LIST changes: -CARV-214 OR; -DOXY-286 PO; -DOXY-346 PO; +FURO20TA3 PO; -PRED1PAK9 PO; +ZOLP10TA PO
--- NOTE | 2024-03-11 14:07 | ED.PDOC ---
History of Present Illness HPI Comments 83 year old male AMPARO presents to the ED with chief complaint of chest pain and dizziness. Patient reports that he had been experiencing chest pain this morning with associated coughing and dizziness, however, his chest pain has since resolved. Patient relays that his main concern now is his dizziness. EMS states patient's vitals were all stable and patient was able to ambulate to the [facility] on his own. Patient denies any SOB, headache, fever, chills, or N/V/D. Time Seen by MD: 14:04 Primary Care Provider: unknown Reviewed Notes: Nurses Notes, Medications, Allergies Allergies: Coded Allergies: No Known Drug Allergy (Verified Allergy, Unknown, 05/24/20) Home Meds Active Scripts Furosemide (Furosemide) 20 Mg Tab, 1 TAB PO DAILY for 90 Days, #90 TAB 1 Refill Prov:JEN GOODE RESIDENT 09/21/23 Epinephrine (Anaphylaxis) (Auvi-Q) 0.1 Mg/0.1 Ml Inj, 0.1 MG IJ O PRN for 1 Day, #1 INJ Prov:MARCELO TOWNSEND MD 09/09/23 Famotidine (PEPCID TABLET) 20 Mg Tb, 1 TAB PO BID for 4 Days, #8 TAB 5 Refills Prov:MARCELO TOWNSEND MD 09/09/23 Mupirocin Calcium (Topical) (MUPIROCIN) 2 % Cre, 2 % EX BID for 7 Days, #30 CRE Prov:RAY CORCORAN MD 09/05/23 Metoprolol Tartrate (Metoprolol Tartrate) 25 Mg Tab, 1 TAB PO BID, #60 TAB 5 Refills Prov:RAY CORCORAN MD 08/22/23 Temazepam (Restoril) 15 Mg Cp, 1 CAP PO QPM, #30 CAP 0 Refills Prov:HERBIE LEI MD 07/31/22 Reported Medications Zolpidem Tartrate (Ambien) 10 Mg Tab, PO QPM, #30 TAB 5 Refills 09/20/23 Tamsulosin Hcl (Flomax) 0.4 Mg Cap, 0.4 MG PO DAILY, CAP 09/04/23 Hydroxychloroquine Sulfate (Hydroxychloroquine Sulfat) 200 Mg Tab, 200 MG PO BID for 30 Days, MG 09/04/23 Information Source: Patient Mode of Arrival: Ambulatory Severity: Moderate Timing: Hours Duration: Since onset Prehospital treatment: None Past Medical History PAST MEDICAL HISTORY: AFIB, Arthritis, CHF, COPD, PUD Surgical History: Hernia Repair, Tonsillectomy Surgical History (Other): Abdominal surgery Family History Family History: Reviewed,noncontributory to illness Social History Smoker: Non-Smoker Alcohol: Denies ETOH Use Drugs: Denies Drug Use Lives In: Home Constitutional: denies: chills, diaphoresis, fatigue, fever, malaise, sweats, weakness, others EENTM: denies: blurred vision, double vision, ear bleeding, ear discharge, ear drainage, ear pain, ear ringing, eye pain, eye redness, hearing loss, mouth pain, mouth swelling, nasal discharge, nose bleeding, nose congestion, nose pain, photophobia, tearing, throat pain, throat swelling, voice changes, others Respiratory: reports: cough; denies: hemoptysis, orthopnea, SOB at rest, shortness of breath, SOB with excertion, stridor, wheezing, others Cardiovascular: reports: chest pain; denies: dizzy spells, diaphoresis, Dyspnea on exertion, edema, irregular heart beat, left arm pain, lightheadedness, palpitations, PND, syncope, others Gastrointestinal: denies: abdomen distended, abdominal pain, blood streaked bowels, constipated, diarrhea, dysphagia, difficulty swallowing, hematemesis, melena, nausea, poor appetite, poor fluid intake, rectal bleeding, rectal pain, vomiting, others Genitourinary: denies: burning, dysuria, flank pain, frequency, hematuria, incontinence, penile discharge, penile sore, pain, testicle pain, testicle swelling, urgency, others Neurological: reports: dizziness; denies: fainting, headache, left sided numbness, left sided weakness, numbness, paresthesia, pre-existing deficit, right sided numbness, right sided weakness, seizure, speech problems, tingling, tremors, weakness, others Musculoskeletal: denies: back pain, gout, joint pain, joint swelling, muscle pain, muscle stiffness, neck pain, others Integumetry: denies: bruises, change in color, change in hair/nails, dryness, laceration, lesions, lumps, rash, wounds, others Allergic/Immunocompromised: denies: Difficulty Healing, Frequent Infections, Hives, Itching, others Hematologic/Lymphatic: denies: anemia, blood clots, easy bleeding, easy bruising, swollen glands, others Endocrine: denies: excessive hunger, excessive sweating, excessive thirst, excessive urination, flushing, intolerance to cold, intolerance to heat, unexplained weight gain, unexplained weight loss, others Psychiatric: denies: anxiety, bipolar disorder, depression, hopeless, panic disorder, schizophrenia, sleepless, suicidal, others All Other Systems: Reviewed and Negative Physical Exam General Appearance: Moderate Distress, Normal HEENT: Normal ENT Inspection, PERRL/EOMI Neck: Full Range of Motion, Non-Tender, Normal, Normal Inspection Respiratory: Chest Non-Tender, Lungs Clear, No Accessory Muscle Use, No Respiratory Distress, Normal Breath Sounds Cardiovascular: Irregular, No Edema, No JVD, No Murmur, No Gallop, Normal Peripheral Pulses Breast Exam: Deferred Gastrointestinal: No Organomegaly, Non Tender, No Pulsatile Mass, Normal Bowel Sounds, Soft Genitalia: Deferred Pelvic: Deferred Rectal: Deferred Extremities: No calf tenderness, Normal capillary refill, Normal inspection, Normal range of motion, Non-tender, No pedal edema Musculoskeletal : Apperance: Normal Neurologic: Alert, through freight engineer II-XII nml as Tested, No Motor Deficits, Normal Affect, Normal Mood, No Sensory Deficits Cerebellar Function: NOT DONE Reflexes: NOT DONE Skin: Dry, Normal Color, Warm Peripheral Pulses: 3+ Radial (R), 3+ Radial (L) Lymphatic: No Adenopathy Was a procedure done? Was a procedure done?: No Differential Dx Considerations may include: AFib Electrolyte imbalance X-Ray, Labs, Meds, VS Vital Signs Date Time Temp Pulse Resp B/P (MAP) Pulse Ox O2 Delivery O2 Flow Rate FiO2 03/11/24 15:00 81 03/11/24 14:10 97.9 99 18 136/75 (95) 96 03/11/24 14:03 84 Lab Test 03/11/24 15:01 03/11/24 14:07 Range/Units Troponin I High Sensitivity Pending 17 </=54 ng/L White Blood Count 10.4 4.4-10.8 10^3/uL Red Blood Count 4.26 L 4.5-5.90 10^6/uL Hemoglobin 14.9 13.5-17.5 g/dL Hematocrit 43.1 41.0-53.0 % Mean Corpuscular Volume 101.3 H 80.0-100.0 fL Mean Corpuscular Hemoglobin 34.9 H 28.0-32.0 pg Mean Corpuscular Hemoglobin Concent 34.5 32.0-36.0 g/dL Red Cell Distribution Width 13.5 11.8-14.3 % Platelet Count 71 L 140-450 10^3/uL Mean Platelet Volume 10.5 6.9-10.8 fL Neutrophils (%) (Auto) 88.9 H 37.0-80.0 % Lymphocytes (%) (Auto) 5.1 L 10.0-50.0 % Monocytes (%) (Auto) 5.6 0.0-12.0 % Eosinophils (%) (Auto) 0.2 0.0-7.0 % Basophils (%) (Auto) 0.2 0.0-2.0 % Neutrophils # (Auto) 9.3 H 1.6-8.6 10 ^3/uL Lymphocytes # (Auto) 0.5 0.4-5.4 10 ^3/uL Monocytes # (Auto) 0.6 0-1.3 10 ^3/uL Eosinophils # (Auto) 0 0-0.8 10 ^3/uL Basophils # (Auto) 0 0-0.2 10 ^3/uL Nucleated Red Blood Cells 0.0 % Sodium Level 135 L 136-145 mmol/L Potassium Level 4.4 3.5-5.1 mmol/L Chloride Level 100 98-107 mmol/L Carbon Dioxide Level 31 20-31 mmol/L Anion Gap 4 L 5-15 Blood Urea Nitrogen 18 9-23 mg/dL Creatinine 1.07 0.700-1.30 mg/dL Glomerular Filtration Rate Calc 68 >90 mL/min BUN/Creatinine Ratio 16.8 10.0-20.0 Serum Glucose 144 H 74-106 mg/dL Calcium Level 10.4 8.7-10.4 mg/dL Patient alert. Came in because of chest pain. Vitals stable. Answering all questions. EKG reviewed does show atrial fibrillation. Controlled. Continues to have chest discomfort. Reviewed his previous visit. Explained to the patient. Continue cardiac monitoring. Chest XR: FINDINGS: LUNGS AND PLEURAL SPACES: Bibasilar. HEART: Cardiomegaly with mild congestion. MEDIASTINUM: Unremarkable. Normal mediastinal contour. BONES/JOINTS: Unremarkable. No acute fracture. OTHER FINDINGS: . . IMPRESSION: Cardiomegaly with mild congestion. Images Reviewed?: Images reviewed and evaluated by me Time of 1ST Reevaluation: 15:04 Reevaluation 1ST: Unchanged Patient Education/Counseling: Diagnosis, Treatment Family Education/Counseling: No Family Present Additional Information I reviewed the following notes from patient's past medical encounters: 09/19/23 for acute CHF The following tests were ordered, and results were reviewed by me: Troponin, CBC, BMP, UA, and chest XR. Additional Information was gathered from interviewing the following independent historians: EMT I reviewed and agreed with the following test results read by other providers: Chest XR I discussed treatment and results with medical personnel. Departure 1 Departure Time of Disposition: 14:59 Impression: Primary Impression: Atrial fibrillation with RVR Additional Impression: COPD with acute exacerbation Disposition: ADMITTED INPATIENT Admit to: Med Surg Condition: Guarded Critical Care Note Critical Care Time?: Yes (45 min-critical care time only) Stability Stability form required: No Heart Score Heart Score: Heart Score Response (Comments) Value History Moderate Suspicious 1 EKG Normal 0 Age >65 2 Risk Factors 1 or 2 risk factors 1 Troponin Normal limit 0 Total 4 I personally scribed for ZULMA PATEL MD ([email or web address]) on 03/11/24 at 14:07. Electronically submitted by Elvin Young ([email or web address]). I personally scribed for ZULMA PATEL MD ([email or web address]) on 03/11/24 at 14:15. Electronically submitted by Elvin Young ([email or web address]). I personally scribed for ZULMA PATEL MD ([email or web address]) on 03/11/24 at 15:24. Electronically submitted by Elvin Young ([email or web address]). ZULMA PATEL MD Mar 11, 2024 14:07
[2024-03-11 14:39] LABS: Basophils # (auto) 0 10 ^3/uL (0-0.2); Basophils % (auto) 0.2 % (0.0-2.0); Eosinophils # (auto) 0 10 ^3/uL (0-0.8); Eosinophils % (auto) 0.2 % (0.0-7.0); Hematocrit 43.1 % (41.0-53.0); Hemoglobin 14.9 g/dL (13.5-17.5); Lymphocytes # (auto) 0.5 10 ^3/uL (0.4-5.4); Lymphocytes % (auto) 5.1 % (10.0-50.0); Mean Corpuscular Hemoglobin 34.9 pg (28.0-32.0); Mean Corpuscular Hgb Conc. 34.5 g/dL (32.0-36.0); Mean Corpuscular Volume 101.3 fL (80.0-100.0); Monocytes # (auto) 0.6 10 ^3/uL (0-1.3); Monocytes % (auto) 5.6 % (0.0-12.0); Neutrophils # (auto) 9.3 10 ^3/uL (1.6-8.6); Neutrophils % (auto) 88.9 % (37.0-80.0); Platelet Count (auto) 71 10^3/uL (140-450); Red Blood Cells 4.26 10^6/uL (4.5-5.90); Red Cell Distribution Width 13.5 % (11.8-14.3); White Blood Cell 10.4 10^3/uL (4.4-10.8)
[2024-03-11 14:48] LABS: Chloride 100 mmol/L (98-107); Potassium 4.4 mmol/L (3.5-5.1)
[2024-03-11 14:49] LABS: Anion Gap 4 (5-15)
[2024-03-11 14:50] LABS: Calcium 10.4 mg/dL (8.7-10.4)
[2024-03-11 14:55] LABS: BUN/Creatinine Ratio 16.8 (10.0-20.0); Blood Urea Nitrogen 18 mg/dL (9-23)
[2024-03-11 15:00] VITALS: PULSE 82; RESP 30; O2SAT 95
--- NOTE | 2024-03-11 15:00 | DVH ---
EXAM: XR Chest, 1 View CLINICAL INDICATION: sob TECHNIQUE: Frontal view of the chest. COMPARISON: XY CHEST PORTABLE on DOS: 09/19/23, XY CHEST PORTABLE on DOS: 09/03/23, XY CHEST PORTABLE on DOS: 08/21/23 FINDINGS: LUNGS AND PLEURAL SPACES: Bibasilar. HEART: Cardiomegaly with mild congestion. MEDIASTINUM: Unremarkable. Normal mediastinal contour. BONES/JOINTS: Unremarkable. No acute fracture. OTHER FINDINGS: . . IMPRESSION: Cardiomegaly with mild congestion.
[2024-03-11 15:06] LABS: Carbon Dioxide 31 mmol/L (20-31); Glucose 144 mg/dL (74-106); Sodium 135 mmol/L (136-145)
--- NOTE | 2024-03-11 18:51 | ECG ---
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
--- NOTE | 2024-03-11 18:51 | ECG ---
[facility] Test Date: 2024-03-11 Test Time: 14:58:59 Pat Name: CORONA ZEPEDA Department: ED Room: 0202T Gender: M Commercial Credit Lead: TRACY : 1940 Requested By: ZULMA PATEL Order Number: [id number] Reading MD: Corona Thomas Measurements Intervals [place] Rate: 81 P: 0 AK: 0 QRS: 20 QRSD: 94 T: 51 QT: 388 QTc: 451 Interpretive Statements Atrial fibrillation Minimal ST depression Borderline ST elevation, anterior leads Electronically Signed On 03-14-2024 13:05:00 PST by Corona Thomas Please click the below link to view image of tracing.
[2024-03-11 19:30] VITALS: O2SAT 96
[2024-03-11] MEDS ORDERED: DOCUSATE SOD 100 MG CAP PO PRN (20:45)
[2024-03-11] MEDS ORDERED: HYDROcodone-ACET 5/325MG TAB PO PRN (20:45)
[2024-03-11] MEDS ORDERED: ONDANSETRON HCL 4 MG/2 ML VIAL IV PRN (20:45)
[2024-03-11] MEDS: METOPROLOL TARTRATE 25 MG TAB PO SCH (22:00)
--- NOTE | 2024-03-11 22:29 | DVHHP2 ---
History of Present Illness Reason for Visit: COPD with acute exacerbation History of Present Illness The patient is a 83-year-old male with past medical history of AFib, arthritis, CHF, COPD, and PUD presented to [facility] ED with complaint of chest pain. Patient reports symptoms progressively get worse with dizziness, coughing, shortness of breath, getting worse that prompted this visit. Patient was seen and evaluated in the ED, laboratory data shows WBC 10.4, platelets 71, sodium 135, potassium 4.4, BUN 18, creatinine 1.07, GFR 68, glucose 144, troponin 18, blood pressure 103/65, heart rate 82, temperature 97.9 F, O2 saturation 96% on room air. Chest x-ray revealing cardiomegaly with mild congestion. Please see medication orders section in the computer. On my assessment, patient denies chest pain, no headache, no dizziness, no diaphoresis, no abdominal pain, no diarrhea, no nausea, no vomiting, no fever, no chills. Patient was admitted for further evaluation and medical management. Past Medical History AFIB, Arthritis, CHF, COPD, PUD Past Surgical History Hernia Repair, Tonsillectomy, Abdominal surgery Family History Reviewed, noncontributory to the management of this case. Past Social History The patient lives at home, denies smoking, alcohol or illicit drugs abuse. Review of Systems Constitutional: Yes: Weakness; No: Fever, Chills, Sweats, Malaise, Other Eyes: No: Pain, Vision change, Conjunctivae inflammation, Eyelid inflammation, Other, Redness ENT: No: Ear pain, Ear discharge, Nose pain, Nose discharge, Nose congestion, Mouth pain, Mouth swelling, Throat pain, Throat swelling, Other Respiratory: Cough, Shortness of breath; No: Dry, SOB with excertion, Wheezing, Hemoptysis, Pleuritic Pain, Sputum, Wheezing, Other Cardiovascular: Chest Pain; No: Palpitations, Orthopnea, Paroxysmal Noc. Dyspnea, Edema, Lt Headedness, Other Gastrointestinal: No: Nausea, Vomiting, Abdominal Pain, Diarrhea, Constipation, Melena, Hematochezia, Other Genitourinary: No Dysuria, No Frequency, No Incontinence, No Hematuria, No Retention, No Other Musculoskeletal: No: other, neck pain, shoulder pain, arm pain, back pain, hand pain, leg pain, foot pain Skin: No: Rash, Lesions, Jaundice, Bruising, Other Neurological: Other (Dizziness); No: Weakness, Numbness, Incoordination, Change in speech, Confusion, Seizures Allergies: Coded Allergies: No Known Drug Allergy (Verified Allergy, Unknown, 05/24/20) Medications Current Medications Medications Dose Ordered Sig/Louie Route Start Time Stop Time Status Last Admin Dose Admin Tamsulosin HCl 0.4 mg QPM PO 03/12/24 18:00 Metoprolol Tartrate 12.5 mg BID PO 03/11/24 22:00 Famotidine 20 mg DAILY IV 03/12/24 10:00 Acetaminophen/ Hydrocodone Bitart 1 tab Q4HP PRN PO 03/11/24 20:45 Ondansetron HCl 4 mg Q4HP PRN IV 03/11/24 20:45 Docusate Sodium 100 mg BIDPRN PRN PO 03/11/24 20:45 Acetaminophen 650 mg Q6HP PRN PO 03/11/24 20:45 Exam Vital Signs Vital Signs Date Time Temp Pulse Resp B/P (MAP) Pulse Ox O2 Delivery O2 Flow Rate FiO2 03/11/24 19:30 96 Room Air* 0 21 03/11/24 15:00 81 03/11/24 15:00 30 03/11/24 14:30 97.9 103/65 (78) 97.9 General Appearance: Alert, Oriented X3, Cooperative, No acute distress HEENT: Atraumatic, PERRLA, EOMI, Mucous membr. moist/pink Respiratory: Normal air movement, Other (Diminished) Cardiovascular: Regular rate, Normal S1, Normal S2, No murmurs Abdominal: Normal bowel sounds, Soft, No tenderness, No hepatospenomegaly, No masses Extremities: No clubbing, No cyanosis, No edema, Normal pulses, No te nderness/swelling Skin: No rashes, No breakdown, No significant lesion Neuro: Normal speech, Normal tone, Sensation intact, Cranial nerves 3-12 NL, Reflexes 2+, Other (Generalized weakness) Psych/Mental Status: Mental status NL, Mood NL Labs/Xrays Labs Test 03/11/24 16:46 03/11/24 14:07 Range/Units Troponin I High Sensitivity 18 </=54 ng/L White Blood Count 10.4 4.4-10.8 10^3/uL Red Blood Count 4.26 L 4.5-5.90 10^6/uL Hemoglobin 14.9 13.5-17.5 g/dL Hematocrit 43.1 41.0-53.0 % Mean Corpuscular Volume 101.3 H 80.0-100.0 fL Mean Corpuscular Hemoglobin 34.9 H 28.0-32.0 pg Mean Corpuscular Hemoglobin Concent 34.5 32.0-36.0 g/dL Red Cell Distribution Width 13.5 11.8-14.3 % Platelet Count 71 L 140-450 10^3/uL Mean Platelet Volume 10.5 6.9-10.8 fL Neutrophils (%) (Auto) 88.9 H 37.0-80.0 % Lymphocytes (%) (Auto) 5.1 L 10.0-50.0 % Monocytes (%) (Auto) 5.6 0.0-12.0 % Eosinophils (%) (Auto) 0.2 0.0-7.0 % Basophils (%) (Auto) 0.2 0.0-2.0 % Neutrophils # (Auto) 9.3 H 1.6-8.6 10 ^3/uL Lymphocytes # (Auto) 0.5 0.4-5.4 10 ^3/uL Monocytes # (Auto) 0.6 0-1.3 10 ^3/uL Eosinophils # (Auto) 0 0-0.8 10 ^3/uL Basophils # (Auto) 0 0-0.2 10 ^3/uL Nucleated Red Blood Cells 0.0 % Sodium Level 135 L 136-145 mmol/L Potassium Level 4.4 3.5-5.1 mmol/L Chloride Level 100 98-107 mmol/L Carbon Dioxide Level 31 20-31 mmol/L Anion Gap 4 L 5-15 Blood Urea Nitrogen 18 9-23 mg/dL Creatinine 1.07 0.700-1.30 mg/dL Glomerular Filtration Rate Calc 68 >90 mL/min BUN/Creatinine Ratio 16.8 10.0-20.0 Serum Glucose 144 H 74-106 mg/dL Hemoglobin A1c 5.2 <5.7 % A1C Calcium Level 10.4 8.7-10.4 mg/dL PATIENT: CORONA ZEPEDA ACCT: [id number] UNIT: [id number] : 1940 LOC: ER ROOM / BED: / AGE / SEX: 83 / M ADM STATUS: REG ER SERVICE [id number] ORDERING PHYSICIAN: ZULMA PATEL MD PROCEDURE(s): CXRP - CHEST PORTABLE REASON: sob ORDER NUMBER(s): [id number], ACCESSION NUMBER(s): [id number] EXAM: XR Chest, 1 View CLINICAL INDICATION: sob TECHNIQUE: Frontal view of the chest. COMPARISON: XY CHEST PORTABLE on DOS: 09/19/23, XY CHEST PORTABLE on DOS: 09/03/23, XY CHEST PORTABLE on DOS: 08/21/23 FINDINGS: LUNGS AND PLEURAL SPACES: Bibasilar. HEART: Cardiomegaly with mild congestion. MEDIASTINUM: Unremarkable. Normal mediastinal contour. BONES/JOINTS: Unremarkable. No acute fracture. OTHER FINDINGS: IMPRESSION: Cardiomegaly with mild congestion. Assessment/Plan Assessment/Plan COPD with acute exacerbation Atrial fibrillation with RVR Hyperglycemia Thrombocytopenia Generalized weakness Plan 1. Admit to telemetry unit 2. Breathing treatment 3. Pain control management 4. Management of fluids and electrolytes 5. Consultation for hospitalist 6. Diagnostic tests chest x-ray 7. DVT prophylaxis on SCDs 8. Repeat labs CBC, CMP in a.m. 9. Continue with current medical management 10. Treatment plan discussed with patient and RN. Patient verbalized understanding. Plan discussed with: Patient, Other (RN) My Orders Orders - GREGORY RAMIREZ DNP Procedure Category Date Status Time Tamsulosin PHA 03/12/24 In Process Hydrochloride (Flomax) 18:00 * Cardiology Consult CONS 03/11/24 Transmitted 20:35 Metoprolol Tartrate PHA 03/11/24 In Process Tablet (Lopressor Ta 22:00 Famotidine Injection PHA 03/12/24 In Process (Pepcid Injection) 10:00 Allergies CHEPE 03/11/24 In Process 20:35 Code Status CODE 03/11/24 Transmitted 20:35 Oxygen Per Hour RT 03/11/24 Transmitted 20:35 Hydrocodone-Acet PHA 03/11/24 In Process 5/325mg Tab ([place] 20:45 Ondansetron Hcl PHA 03/11/24 In Process (Zofran) 20:45 Docusate Sodium PHA 03/11/24 In Process Capsule (Colace 20:45 Fall Risk Precautions CHEPE 03/11/[address] 20:35 Complete Blood Count LAB 03/12/24 Verified 04:00 Comprehensive LAB 03/12/24 Verified Metabolic Panel 04:00 Cardiac DIET 03/12/24 Transmitted Diet-2gna,Lofat,Lochol Breakfast Condition: Serious CHEPE 03/11/24 In Process 20:35 Acetaminophen Tablet PHA 03/11/24 In Process (Tylenol Tablet) 20:45 Sequential CHEPE 03/11/24 In Process Compression Device Problem List: (1) COPD with acute exacerbation (2) Hyperglycemia (3) Thrombocytopenia (4) Atrial fibrillation with RVR (5) Generalized weakness Date of Service: Mar 11, 2024 Billing Provider: GREGORY RAMIREZ DNP Common Visit Codes: [id number] INP/OBS CARE (HIGH) GREGORY RAMIREZ DNP Mar 11, 2024 22:29
[2024-03-11] MEDS ORDERED: MORPHINE SULFATE INJ 2 MG/ml SYRG IV PRN (22:30)
[2024-03-11] MEDS ORDERED: NITROGLYCERIN 0.4 MG SL TAB SL PRN (22:30)
[2024-03-11] MEDS ORDERED: MELATONIN 5 MG TAB PO PRN (23:30)
[2024-03-12 06:34] LABS: Basophils # (auto) 0 10 ^3/uL (0-0.2); Basophils % (auto) 0.4 % (0.0-2.0); Lymphocytes # (auto) 0.7 10 ^3/uL (0.4-5.4); Monocytes # (auto) 0.6 10 ^3/uL (0-1.3); Nucleated Red Blood Cells % 0.1 %
[2024-03-12 06:36] LABS: Eosinophils # (auto) 0.1 10 ^3/uL (0-0.8); Eosinophils % (auto) 0.8 % (0.0-7.0); Hematocrit 39.7 % (41.0-53.0); Hemoglobin 13.9 g/dL (13.5-17.5); Lymphocytes % (auto) 9.3 % (10.0-50.0); Mean Corpuscular Hemoglobin 35.1 pg (28.0-32.0); Mean Corpuscular Volume 100.3 fL (80.0-100.0); Monocytes % (auto) 7.4 % (0.0-12.0); Neutrophils # (auto) 6.5 10 ^3/uL (1.6-8.6); Neutrophils % (auto) 82.1 % (37.0-80.0); Platelet Count (auto) 58 10^3/uL (140-450); Red Blood Cells 3.95 10^6/uL (4.5-5.90); Red Cell Distribution Width 13.5 % (11.8-14.3); White Blood Cell 7.9 10^3/uL (4.4-10.8)
[2024-03-12 06:46] LABS: Alanine Aminotransferase 15 U/L (7-40); Albumin 3.7 g/dL (3.2-4.8); Anion Gap 5 (5-15); Aspartate Aminotransferase 20 U/L (13-40); Bilirubin, Total 1.1 mg/dL (0.2-1.0); Blood Urea Nitrogen 16 mg/dL (9-23); Calcium 9.9 mg/dL (8.7-10.4); Carbon Dioxide 28 mmol/L (20-31); Chloride 103 mmol/L (98-107); Glucose 85 mg/dL (74-106); Potassium 4.4 mmol/L (3.5-5.1); Sodium 136 mmol/L (136-145); Total Protein 6.2 g/dL (5.7-8.2)
[2024-03-12 07:05] LABS: Alkaline Phosphatase 208 U/L (46-116)
[2024-03-12 09:00] VITALS: PULSE 80; RESP 21; O2SAT 97
[2024-03-12 09:43] LABS: Urine Bacteria None Seen /hpf (None Seen)
--- NOTE | 2024-03-12 09:57 | DVHINCON2 ---
Date Seen: Mar 12, 2024 Referring Physician ZOILA Shah Reason for Consultation Afib RVR History of Present Illness This is an 83-year-old male patient who presents to the emergency room with chief complaint of chest pain, shortness of breath, and dizziness. Patient reports that at 2:00 a.m. on day of emergency room arrival, the patient was trying to fall asleep when he suddenly began to experience chest pain. He de scribes it as unprovoked, pressure-like in nature, constant, and left-sided without radiation. Associated symptoms include shortness of breath and dizziness. He denies any alleviating or aggravating factors. The patient decided to call 911 and was brought to the emergency room for further evaluation. Initial twelve lead electrocardiogram reveals atrial fibrillation without any significant ST segment changes. Initial troponin level of 17ng/L with flat trend thereafter. Significant past medical history includes persistent atrial fibrillation (off NOAC therapy), congestive heart failure, hypertension, thoracic aortic aneurysm, mitral valve regurgitation, tricuspid valve regurgitation, COPD, benign prostatic hyperplasia, arthritis, anxiety, and previous tobacco use. The patient reports he follows up with a glass bulb silverer at the [facility] in [facility]. Past Medical History Past medical history reviewed. No other significant than mentioned above. Past Surgical History Bilateral hernia repair Hemorrhoidectomy Family History: Alcoholism G8 FATHER FH: atrial fibrillation G8 MOTHER, Onset:60 years & older GERD G8 MOTHER, Onset:60 years & older Hypertension G8 MOTHER, Onset:50's - 60 Family History Family history reviewed. Social History Patient has a 10 pack-year history, quit smoking approximately 40 years ago Patient denies any illicit drug use Patient denies any alcohol use Allergies: Coded Allergies: No Known Drug Allergy (Verified Allergy, Unknown, 05/24/20) Home Meds Active Scripts Furosemide (Furosemide) 20 Mg Tab, 1 TAB PO DAILY for 90 Days, #90 TAB 1 Refill Prov:JEN GOODE 09/21/23 Epinephrine (Anaphylaxis) (Auvi-Q) 0.1 Mg/0.1 Ml Inj, 0.1 MG IJ O PRN for 1 Day, #1 INJ Prov:MARCELO TOWNSEND MD 09/09/23 Famotidine (PEPCID TABLET) 20 Mg Tb, 1 TAB PO BID for 4 Days, #8 TAB 5 Refills Prov:MARCELO TOWNSEND MD 09/09/23 Mupirocin Calcium (Topical) (MUPIROCIN) 2 % Cre, 2 % EX BID for 7 Days, #30 CRE Prov:RAY CORCORAN MD 09/05/23 Metoprolol Tartrate (Metoprolol Tartrate) 25 Mg Tab, 1 TAB PO BID, #60 TAB 5 Refills Prov:RAY CORCORAN MD 08/22/23 Temazepam (Restoril) 15 Mg Cp, 1 CAP PO QPM, #30 CAP 0 Refills Prov:HERBIE LEI MD 07/31/22 Reported Medications Zolpidem Tartrate (Ambien) 10 Mg Tab, PO QPM, #30 TAB 5 Refills 09/20/23 Tamsulosin Hcl (Flomax) 0.4 Mg Cap, 0.4 MG PO DAILY, CAP 09/04/23 Hydroxychloroquine Sulfate (Hydroxychloroquine Sulfat) 200 Mg Tab, 200 MG PO BID for 30 Days, MG 09/04/23 Home Meds Home medications reviewed. Current Medications Current Medications Medications (Trade) Dose Ordered Sig/Louie Route PRN Reason Start Time Stop Time Status Last Admin Tamsulosin HCl (Flomax) 0.4 mg QPM PO 03/12/24 18:00 Metoprolol Tartrate (Lopressor Tablet) 12.5 mg BID PO 03/11/24 22:00 03/11/24 22:00 Famotidine (Pepcid Injection) 20 mg DAILY IV 03/12/24 10:00 Acetaminophen/ Hydrocodone Bitart ([place] 5/325MG Tab) 1 tab Q4HP PRN PO MODERATE PAIN (4-6 PAIN SCALE) 03/11/24 20:45 Ondansetron HCl (Zofran) 4 mg Q4HP PRN IV NAUSEA / VOMITING 03/11/24 20:45 Docusate Sodium (Colace Capsule) 100 mg BIDPRN PRN PO FOR CONSTIPATION 03/11/24 20:45 Acetaminophen (Tylenol Tablet) 650 mg Q6HP PRN PO PAIN SCALE 1-3 OR TEMP>100.4 03/11/24 20:45 Nitroglycerin (Ntrostat Sublingual) 0.4 mg Q5MINP PRN SL FOR CHEST PAIN 03/11/24 22:30 Morphine Sulfate 2 mg Q30M PRN IV FOR CHEST PAIN 03/11/24 22:30 Melatonin (Melatonin) 5 mg HSPRN PRN PO FOR INSOMNIA 03/11/24 23:30 Review of Systems Constitutional: No symptom reported Ears, Nose, & Throat: No symptom reported Eyes: No symptom reported Neurological: No symptoms reported Pulmonary/Respiratory: Shortness of breath Cardiovascular: Chest pain Gastrointestinal: No symptom reported Genitourinary: No symptom reported Musculoskeletal: No symptom reported Skin: No symptom reported Psychiatric: No symptom reported Endocrine: No symptom reported Hematologic/Lymphatic: No symptom reported Vital Signs Vital Signs Date Time Temp Pulse Resp B/P (MAP) Pulse Ox O2 Delivery O2 Flow Rate FiO2 03/12/24 09:00 80 21 97 Room Air* 0 21 03/12/24 07:58 127/64 (85) 03/11/24 14:30 97.9 97.9 Physical Exam General Appearance: Cooperative. Thin, frail, cachectic Pulmonary/Respiratory: Diminished bilateral lobe sounds Cardiovascular/Chest: Irregular rate and rhythm. Peripheral Pulses: 2+ Radial (R). 2+ Radial (L). Abdominal Exam: Normal bowel sounds. Ankle Exam: Negative ankle edema Lower extremities: Negative lower extremity edema Neuro/Mental Status: A/OX4, coherent. Thoughts/Psych: Normal thought pattern. Appropriate mood and affect. Good judgment and insight. Appearance: No acute distress. Skin Exam: Normal inspection. Normal color. Warm and dry. Labs/Diagnostic Data Labs Test 03/12/24 05:30 03/11/24 16:46 03/11/24 14:07 Range/Units White Blood Count 7.9 4.4-10.8 10^3/uL Red Blood Count 3.95 L 4.5-5.90 10^6/uL Hemoglobin 13.9 13.5-17.5 g/dL Hematocrit 39.7 L 41.0-53.0 % Mean Corpuscular Volume 100.3 H 80.0-100.0 fL Mean Corpuscular Hemoglobin 35.1 H 28.0-32.0 pg Mean Corpuscular Hemoglobin Concent 35.0 32.0-36.0 g/dL Red Cell Distribution Width 13.5 11.8-14.3 % Platelet Count 58 L 140-450 10^3/uL Mean Platelet Volume 10.0 6.9-10.8 fL Neutrophils (%) (Auto) 82.1 H 37.0-80.0 % Lymphocytes (%) (Auto) 9.3 L 10.0-50.0 % Monocytes (%) (Auto) 7.4 0.0-12.0 % Eosinophils (%) (Auto) 0.8 0.0-7.0 % Basophils (%) (Auto) 0.4 0.0-2.0 % Neutrophils # (Auto) 6.5 1.6-8.6 10 ^3/uL Lymphocytes # (Auto) 0.7 0.4-5.4 10 ^3/uL Monocytes # (Auto) 0.6 0-1.3 10 ^3/uL Eosinophils # (Auto) 0.1 0-0.8 10 ^3/uL Basophils # (Auto) 0 0-0.2 10 ^3/uL Nucleated Red Blood Cells 0.1 % Sodium Level 136 136-145 mmol/L Potassium Level 4.4 3.5-5.1 mmol/L Chloride Level 103 98-107 mmol/L Carbon Dioxide Level 28 20-31 mmol/L Anion Gap 5 5-15 Blood Urea Nitrogen 16 9-23 mg/dL Creatinine 1.00 0.700-1.30 mg/dL Glomerular Filtration Rate Calc 74 >90 mL/min BUN/Creatinine Ratio 16.0 10.0-20.0 Serum Glucose 85 74-106 mg/dL Calcium Level 9.9 8.7-10.4 mg/dL Total Bilirubin 1.1 H 0.2-1.0 mg/dL Aspartate Amino Transferase (AST) 20 13-40 U/L Alanine Aminotransferase (ALT) 15 7-40 U/L Alkaline Phosphatase 208 H 46-116 U/L Total Protein 6.2 5.7-8.2 g/dL Albumin 3.7 3.2-4.8 g/dL Troponin I High Sensitivity 18 </=54 ng/L Hemoglobin A1c 5.2 <5.7 % A1C Assessment Chest pain, likely noncardiac Longstanding persistent atrial fibrillation, Stage 3c (off NOAC therapy) Chronic HFpEF, NYHA class II (last echo on 08/21/23 reveals EF 60%) Hypertension Mitral regurgitation, severe degree Thoracic aortic aneurysm COPD exacerbations Thrombocytopenia Cachexia Anxiety Plan/Recommendation We will continue with the following plan/recommendations (Dr. Blount): * Echocardiogram to evaluate cardiac function * Last echocardiogram from 08/21/2023 reveals EF 60% * Chest pain protocol * HEART score:3 points (low score) * [id number] VASC score: 4 points, HAS-BLED score: 1 point * Patient adamantly refuses NOAC therapy * Beta-tan for rate control * Avoid antiarrhythmic agent given persistent atrial fibrillation * BP control * Monitor platelet count closely * Cardiac surveillance Patient seen and examined at bedside with . Given negative troponin level, unremarkable twelve lead electrocardiogram, and low HEART score, doubt ACS. In the setting of an unremarkable echocardiogram, there is no further inpatient cardiac workup indicated at this time. The patient is adamantly refusing any kind of anticoagulation therapy. Educated the patient on the importance of anticoagulation given his history of atrial fibrillation. Educated the patient on the risk for development of clots and high risk for stroke. The patient verbalizes an understanding and still refuses any anticoagulation. We will recommend for the patient to follow up with his glass bulb silverer at the [facility] in [place] within 1-2 weeks post discharge. We would also like to make the recommendation for possible Watchman device placement given that the patient is refusing anticoagulation. Thank you for allowing us to care for this patient. Please call with any questions or concerns. Critical care time spent: 39 minutes This medical document was created using an electronic medical record system with voice recognition software and computerized dictation system. Although this document has been carefully reviewed, there might still be some phonetic and typographical errors. Occasional wrong-word or ``sound-alike substitutions may have occurred due to the inherent limitations of voice recognition software. These areas are purely typographical due to imperfections of the software programs and do not reflect any compromise in the patient's medical care. Please read the chart carefully and recognize, using context, where these substitutions have occurred. Plan discussed with: Patient NYHA Physical activity limitations: Class2(Slight)fatigue,sob (palpitatns, angina w activityv) Date of Service: Mar 12, 2024 Billing Provider: LURDES MOON Cardiology Common Codes: [id number] INP/OBS CARE (High) Cardiology Consultation Codes: [id number] CONSULT <45MIN LURDES MOON Mar 12, 2024 09:57
[2024-03-12 10:03] LABS: Urine Blood Negative /uL (Negative); Urine Clarity Clear (Clear); Urine Color Yellow (Yellow); Urine Mucus FEW (None Seen); Urine Protein, UAD 1+ (Negative); Urine Specific Gravity 1.023 (1.001-1.035); Urine Urobilinogen Normal (Negative); Urine WBC 2 /hpf (0 - 3); Urine pH 6.5 (5.0-9.0)
[2024-03-12] MEDS: FAMOTIDINE (10MG/ML) 2ML VL IV SCH (10:23)
[2024-03-12 10:47] LABS: Magnesium 2.3 mg/dL (1.6-2.6)
[2024-03-12] MEDS ORDERED: LACTULOSE 20Gm/30ML SOLN PO PRN (11:00)
[2024-03-12 11:05] VITALS: BP 130/77; PULSE 80; RESP 18; TEMP 97.9; O2SAT 97
[2024-03-12] MEDS: DOXYCYCLINE 100MG/250ML 250 ML IV SCH (11:34)
[2024-03-12] MEDS: methylPREDNISolone SOD SUCC 40 MG/ML VL IV SCH (11:35)
--- NOTE | 2024-03-12 13:23 | DVHPN2 ---
Subjective Feels somewhat better Reviewed: Care Plan, H&P, Labs, Medications, Previous Orders, Radiology Changes from previous H/P or p: No Changes Respiratory: Cough, Shortness of breath Objective Vitals Vital Signs Date Time Temp Pulse Resp B/P (MAP) Pulse Ox O2 Delivery O2 Flow Rate FiO2 03/12/24 11:29 79 105/70 03/12/24 11:05 97.9 18 97 0.0 21 97.9 03/12/24 09:00 Room Air* Intake/Output Intake and Output 03/12/24 07:00 Intake Total 300 ml Output Total 500 ml Balance -200 ml Intake Oral 300 ml Output Urine Total 500 ml General Appearance: Alert, Oriented X3, Cooperative, No acute distress HEENT: Atraumatic Lungs: Other (Few crackles bilateral lungs with rhonchi bilateral lungs) Cardiovascular: Other (Controlled rate) Abdomen: Normal bowel sounds, Soft, No tenderness Extremities: No edema Medications Current Medications Medications Dose Ordered Sig/Louie Route Start Time Stop Time Status Last Admin Dose Admin Tamsulosin HCl 0.4 mg QPM PO 03/12/24 18:00 Metoprolol Tartrate 12.5 mg BID PO 03/11/24 22:00 03/12/24 10:24 12.5 MG Famotidine 20 mg DAILY IV 03/12/24 10:00 03/12/24 10:23 20 MG Acetaminophen/ Hydrocodone Bitart 1 tab Q4HP PRN PO 03/11/24 20:45 Ondansetron HCl 4 mg Q4HP PRN IV 03/11/24 20:45 Docusate Sodium 100 mg BIDPRN PRN PO 03/11/24 20:45 Acetaminophen 650 mg Q6HP PRN PO 03/11/24 20:45 Nitroglycerin 0.4 mg Q5MINP PRN SL 03/11/24 22:30 Morphine Sulfate 2 mg Q30M PRN IV 03/11/24 22:30 Melatonin 5 mg HSPRN PRN PO 03/11/24 23:30 Hydroxychloroquine Sulfate 200 mg BID PO 03/12/24 22:00 Doxycycline Hyclate 250 ml @ 125 mls/hr Q12H IV 03/12/24 11:00 03/12/24 11:34 125 MLS/HR Albuterol 2.5 mg Q3HPRN PRN NEB 03/12/24 11:00 Ipratropium [place] 0.5 mg Q6HR NEB 03/12/24 12:00 Methylprednisolone Sodium Succinate 40 mg Q12H IV 03/12/24 11:00 03/12/24 11:35 40 MG Lactulose 30 ml DAILY PRN PO 03/12/24 11:00 Laboratory Results Laboratory Tests 03/12/24 05:30 Chemistry Test 03/11/24 14:07 03/12/24 05:30 Calcium Level 10.4 mg/dL (8.7-10.4) 9.9 mg/dL (8.7-10.4) Albumin 3.7 g/dL (3.2-4.8) Magnesium Level 2.3 mg/dL (1.6-2.6) Total Protein 6.2 g/dL (5.7-8.2) Lipid panel Test 03/12/24 05:30 Cholesterol Level 96 mg/dL (< 200) HDL Cholesterol 47 mg/dL (40-59) Triglycerides Level 52 mg/dL (< 150) LFT Test 03/12/24 05:30 Alanine Aminotransferase (ALT) 15 U/L (7-40) Alkaline Phosphatase 208 U/L (46-116) H Aspartate Amino Transferase (AST) 20 U/L (13-40) Total Bilirubin 1.1 mg/dL (0.2-1.0) H HgA1c, TSH Test 03/11/24 14:07 03/12/24 05:30 Hemoglobin A1c 5.2 % A1C (<5.7) Thyroid Stimulating Hormone (TSH) 2.60 uIU/mL (0.55-4.78) Urinalysis Test 03/12/24 08:28 Urine Color Yellow (Yellow) Urine Clarity Clear (Clear) Urine pH 6.5 (5.0-9.0) Urine Specific [place] 1.023 (1.001-1.035) Urine Protein 1+ (Negative) H Urine Ketones Negative (Negative) Urine Blood Negative /uL (Negative) Urine Nitrite Negative (Negative) Urine Bilirubin Negative (Negative) Urine Urobilinogen Normal mg/dL (Negative) Urine Leukocyte Esterase Negative /uL (Negative) Urine RBC 11 /hpf (0 - 3) Urine WBC 2 /hpf (0 - 3) Urine Squamous Epithelial Cells None seen /hpf (<5) Urine Calcium Oxalate Crystals Mod (None Seen) Urine Bacteria None seen /hpf (None Seen) Urine Mucus Few (None Seen) Urine Glucose Normal mg/dL (Normal) Assessment/Plan Assessment/Plan COPD exacerbation AFib with RVR Heart failure Hyperglycemia Thrombocytopenia Peptic ulcer disease Arthritis Plan: We will add doxycycline. Nebulizers. Solu-Medrol. Repeat labs and x-ray. Echocardiogram pending. Further plan per orders Plan discussed with: Patient My Orders Orders - MARTINE SUAREZ MD Procedure Category Date Status Time Hydroxychloroquine PHA 03/12/24 In Process Tablet (Plaquenil Tab 22:00 Doxycycline PHA 03/12/24 In Process 100mg/250ml 11:00 Albuterol Medneb PHA 03/12/24 In Process (Ventolin Medneb) 11:00 Ipratropium Medneb PHA 03/12/24 In Process (Atrovent Medneb) 12:00 Methylprednisolone PHA 03/12/24 In Process Sod Succ (Solu Medrol 11:00 Respiratory Culture MACK 03/12/24 Uncollected W/ Gs 10:50 Chest Portable XY 03/13/24 Logged 05:00 Complete Blood Count LAB 03/13/24 Verified 04:00 Comprehensive LAB 03/13/24 Verified Metabolic Panel 04:00 Lactulose Oral PHA 03/12/24 In Process 11:00 Rapid Influenza A&B LAB 03/12/24 Logged 10:50 Date of Service: Mar 12, 2024 Billing Provider: MARTINE SUAREZ MD Common Visit Codes: [id number] INP/OBS CARE(HIGH) MARTINE SUAREZ MD Mar 12, 2024 13:23
--- NOTE | 2024-03-12 15:21 | DVHSR ---
APPROVED REPORT EXAM: Two-dimensional and M-mode echocardiogram with Doppler and color Doppler. Blood Pressure: 127/64 mmHg INDICATION Evaluate RISK FACTORS Height: 5' 10", Weight: 127 DIMENSIONS LVDd5.6 (3.8-5.7cm)LA (2D)5.4 (1.9-4.0cm)Aortic Root4.9 (2.0-3.7cm) LVDs4.4 (2.5-4.0cm)LA (MM) (1.9-4.0cm)Aortic Cusp Exc1.5 (1.5-2.0cm) EF (%) 45.0 (55-70%)Rt. Atrium5.7 (1.9-4.0cm)Asc. 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
--- NOTE | 2024-03-12 16:29 | DVHINCON2 ---
Date Seen: Mar 12, 2024 Referring Physician ZOILA Shah Reason for Consultation Afib RVR History of Present Illness This is an 83-year-old male with a past medical history of persistent atrial fibrillation (off NOAC therapy), congestive heart failure, hypertension, thoracic aortic aneurysm, mitral valve regurgitation, tricuspid valve regurgitation, COPD, benign prostatic hyperplasia, arthritis, and anxiety who presented to the ED with complaint of chest pain, shortness or breath, and dizziness. Patient reports that at 2:00 a.m. on day of emergency room arrival, the patient was trying to fall asleep when he suddenly began to experience chest pain. Patient describes it as unprovoked pressure-like in nature, constant, and left-sided without radiation. Associated symptoms include shortness of breath and dizziness. He denies any alleviating or aggravating factors. The patient decided to call 911 and was brought in for further evaluation. Initial twelve lead electrocardiogram reveals atrial fibrillation without any significant ST segment changes. Initial troponin level of 17ng/L with flat trend thereafter. Chest x-ray shows cardiomegaly with mild congestion. The patient reports he follows up with a senior software project manager at the [place] at [facility]. Patient was admitted to the hospital. I am asked to consult on this patient. Family History: Alcoholism G8 FATHER FH: atrial fibrillation G8 MOTHER, Onset:60 years & older GERD G8 MOTHER, Onset:60 years & older Hypertension G8 MOTHER, Onset:50's - 60 Allergies: Coded Allergies: No Known Drug Allergy (Verified Allergy, Unknown, 05/24/20) Home Meds Active Scripts Furosemide (Furosemide) 20 Mg Tab, 1 TAB PO DAILY for 90 Days, #90 TAB 1 Refill Prov:JEN GOODE 09/21/23 Epinephrine (Anaphylaxis) (Auvi-Q) 0.1 Mg/0.1 Ml Inj, 0.1 MG IJ O PRN for 1 Day, #1 INJ Prov:MARCELO TOWNSEND MD 09/09/23 Famotidine (PEPCID TABLET) 20 Mg Tb, 1 TAB PO BID for 4 Days, #8 TAB 5 Refills Prov:MARCELO TOWNSEND MD 09/09/23 Mupirocin Calcium (Topical) (MUPIROCIN) 2 % Cre, 2 % EX BID for 7 Days, #30 CRE Prov:RAY CORCORAN MD 09/05/23 Metoprolol Tartrate (Metoprolol Tartrate) 25 Mg Tab, 1 TAB PO BID, #60 TAB 5 Refills Prov:RAY CORCORAN MD 08/22/23 Temazepam (Restoril) 15 Mg Cp, 1 CAP PO QPM, #30 CAP 0 Refills Prov:HERBIE LEI MD 07/31/22 Reported Medications Zolpidem Tartrate (Ambien) 10 Mg Tab, PO QPM, #30 TAB 5 Refills 09/20/23 Tamsulosin Hcl (Flomax) 0.4 Mg Cap, 0.4 MG PO DAILY, CAP 09/04/23 Hydroxychloroquine Sulfate (Hydroxychloroquine Sulfat) 200 Mg Tab, 200 MG PO BID for 30 Days, MG 09/04/23 Current Medications Current Medications Medications (Trade) Dose Ordered Sig/Louie Route PRN Reason Start Time Stop Time Status Last Admin Tamsulosin HCl (Flomax) 0.4 mg QPM PO 03/12/24 18:00 Metoprolol Tartrate (Lopressor Tablet) 12.5 mg BID PO 03/11/24 22:00 03/12/24 10:24 Famotidine (Pepcid Injection) 20 mg DAILY IV 03/12/24 10:00 03/12/24 10:23 Acetaminophen/ Hydrocodone Bitart ([place] 5/325MG Tab) 1 tab Q4HP PRN PO MODERATE PAIN (4-6 PAIN SCALE) 03/11/24 20:45 Ondansetron HCl (Zofran) 4 mg Q4HP PRN IV NAUSEA / VOMITING 03/11/24 20:45 Docusate Sodium (Colace Capsule) 100 mg BIDPRN PRN PO FOR CONSTIPATION 03/11/24 20:45 Acetaminophen (Tylenol Tablet) 650 mg Q6HP PRN PO PAIN SCALE 1-3 OR TEMP>100.4 03/11/24 20:45 Nitroglycerin (Ntrostat Sublingual) 0.4 mg Q5MINP PRN SL FOR CHEST PAIN 03/11/24 22:30 Morphine Sulfate 2 mg Q30M PRN IV FOR CHEST PAIN 03/11/24 22:30 Melatonin (Melatonin) 5 mg HSPRN PRN PO FOR INSOMNIA 03/11/24 23:30 Hydroxychloroquine Sulfate (Plaquenil Tablet) 200 mg BID PO 03/12/24 22:00 Doxycycline Hyclate 250 ml @ 125 mls/hr Q12H IV 03/12/24 11:00 03/12/24 11:34 Albuterol (Ventolin Medneb) 2.5 mg Q3HPRN PRN NEB SHORTNESS OF BREATH 03/12/24 11:00 Ipratropium [place] (Atrovent Medneb) 0.5 mg Q6HR NEB 03/12/24 12:00 Methylprednisolone Sodium Succinate (Solu Medrol) 40 mg Q12H IV 03/12/24 11:00 03/12/24 11:35 Lactulose 30 ml DAILY PRN PO FOR CONSTIPATION 03/12/24 11:00 Review of Systems Constitutional: No symptom reported Ears, Nose, & Throat: No symptom reported Eyes: No symptom reported Neurological: No symptoms reported Pulmonary/Respiratory: Shortness of breath Cardiovascular: Chest pain Gastrointestinal: No symptom reported Genitourinary: No symptom reported Musculoskeletal: No symptom reported Skin: No symptom reported Psychiatric: No symptom reported Endocrine: No symptom reported Hematologic/Lymphatic: No symptom reported Vital Signs Vital Signs Date Time Temp Pulse Resp B/P (MAP) Pulse Ox O2 Delivery O2 Flow Rate FiO2 03/12/24 13:00 77 29 126/66 (86) 97 03/12/24 11:05 97.9 0.0 21 97.9 03/12/24 09:00 Room Air* Physical Exam GENERAL: Awake, alert, oriented. Thin appearing. LUNGS: Diminished bilateral lobe sounds. CARDIOVASCULAR: Irregular rate and rhythm. ABDOMEN: Soft. Labs/Diagnostic Data Labs Test 03/12/24 08:28 03/12/24 05:30 03/11/24 16:46 03/11/24 14:07 Range/Units Urine Color Yellow Yellow Urine Clarity Clear Clear Urine pH 6.5 5.0-9.0 Urine Specific [place] 1.023 1.001-1.035 Urine Protein 1+ H Negative Urine Ketones Negative Negative Urine Blood Negative Negative /uL Urine Nitrite Negative Negative Urine Bilirubin Negative Negative Urine Urobilinogen Normal Negative mg/dL Urine Leukocyte Esterase Negative Negative /uL Urine RBC 11 0 - 3 /hpf Urine WBC 2 0 - 3 /hpf Urine Squamous Epithelial Cells None seen <5 /hpf Urine Calcium Oxalate Crystals Mod None Seen Urine Bacteria None seen None Seen /hpf Urine Mucus Few None Seen Urine Glucose Normal Normal mg/dL White Blood Count 7.9 4.4-10.8 10^3/uL Red Blood Count 3.95 L 4.5-5.90 10^6/uL Hemoglobin 13.9 13.5-17.5 g/dL Hematocrit 39.7 L 41.0-53.0 % Mean Corpuscular Volume 100.3 H 80.0-100.0 fL Mean Corpuscular Hemoglobin 35.1 H 28.0-32.0 pg Mean Corpuscular Hemoglobin Concent 35.0 32.0-36.0 g/dL Red Cell Distribution Width 13.5 11.8-14.3 % Platelet Count 58 L 140-450 10^3/uL Mean Platelet Volume 10.0 6.9-10.8 fL Neutrophils (%) (Auto) 82.1 H 37.0-80.0 % Lymphocytes (%) (Auto) 9.3 L 10.0-50.0 % Monocytes (%) (Auto) 7.4 0.0-12.0 % Eosinophils (%) (Auto) 0.8 0.0-7.0 % Basophils (%) (Auto) 0.4 0.0-2.0 % Neutrophils # (Auto) 6.5 1.6-8.6 10 ^3/uL Lymphocytes # (Auto) 0.7 0.4-5.4 10 ^3/uL Monocytes # (Auto) 0.6 0-1.3 10 ^3/uL Eosinophils # (Auto) 0.1 0-0.8 10 ^3/uL Basophils # (Auto) 0 0-0.2 10 ^3/uL Nucleated Red Blood Cells 0.1 % Sodium Level 136 136-145 mmol/L Potassium Level 4.4 3.5-5.1 mmol/L Chloride Level 103 98-107 mmol/L Carbon Dioxide Level 28 20-31 mmol/L Anion Gap 5 5-15 Blood Urea Nitrogen 16 9-23 mg/dL Creatinine 1.00 0.700-1.30 mg/dL Glomerular Filtration Rate Calc 74 >90 mL/min BUN/Creatinine Ratio 16.0 10.0-20.0 Serum Glucose 85 74-106 mg/dL Calcium Level 9.9 8.7-10.4 mg/dL Magnesium Level 2.3 1.6-2.6 mg/dL Total Bilirubin 1.1 H 0.2-1.0 mg/dL Aspartate Amino Transferase (AST) 20 13-40 U/L Alanine Aminotransferase (ALT) 15 7-40 U/L Alkaline Phosphatase 208 H 46-116 U/L Total Protein 6.2 5.7-8.2 g/dL Albumin 3.7 3.2-4.8 g/dL Triglycerides Level 52 < 150 mg/dL Cholesterol Level 96 < 200 mg/dL LDL Cholesterol 40 < 100 mg/dL HDL Cholesterol 47 40-59 mg/dL Thyroid Stimulating Hormone (TSH) 2.60 0.55-4.78 uIU/mL Troponin I High Sensitivity 18 </=54 ng/L Hemoglobin A1c 5.2 <5.7 % A1C Assessment Chest pain, likely noncardiac. Longstanding persistent atrial fibrillation, Stage 3c (off NOAC therapy). Chronic HFpEF, NYHA class II (last echo on 08/21/23 reveals EF 60%). Hypertension. Mitral regurgitation, severe degree. Thoracic aortic aneurysm. COPD exacerbations. Thrombocytopenia. Cachexia. Anxiety. Plan/Recommendation I agree with your ongoing assessment and care of plan. Patient has been seen by Cheryl Linda NP on my behalf, her and I discussed the plan with the patient. The patient is adamantly refusing any kind of anticoagulation therapy. Educated the patient on the importance of anticoagulation given his history of atrial fibrillation. Educated the patient on the risk for development of clots and high risk for stroke. The patient verbalizes an understanding and still refuses any anticoagulation. We will recommend for the patient to follow up with his senior software project manager at the [facility] in [place] within 1-2 weeks post discharge. We would also like to make the recommendation for possible Watchman device p lacement given that the patient is refusing anticoagulation. Echocardiogram to evaluate cardiac function. Last echocardiogram from 08/21/2023 reveals EF 60%. Chest pain protocol. HEART score:3 points (low score). [id number] VASC score: 4 points, HAS-BLED score: 1 point. Patient adamantly refuses NOAC therapy. Beta-tan for rate control. Avoid antiarrhythmic agent given persistent atrial fibrillation. BP control. Monitor platelet count closely. Cardiac surveillance. Additional plan as per the hospital course. Plan discussed with: Patient Date of Service: Mar 12, 2024 Billing Provider: CARMELLA GILLETTE MD Cardiology Common Codes: [id number] INP/OBS CARE (High) Cardiology Consultation Codes: [id number] CONSULT <45MIN CARMELLA GILLETTE MD Mar 12, 2024 14:28
[2024-03-12] MEDS: TAMSULOSIN HYDROCHLORIDE 0.4 MG CAP PO SCH (18:00)
[2024-03-12] MEDS: IPRATROPIUM BROM 0.5 MG/2.5ML INH SOL NEB SCH (18:00)
[2024-03-12 19:01] VITALS: O2SAT 97
[2024-03-12] MEDS: dilTIAZem 25 MG/5 ML VIAL IV ONE (20:10)
[2024-03-12 20:15] VITALS: PULSE 133; RESP 18; O2SAT 97
[2024-03-12 20:24] LABS: Rapid Influenza A Negative (Negative)
[2024-03-12 20:25] VITALS: PULSE 134; RESP 18; O2SAT 97
[2024-03-12 20:31] LABS: Rapid Influenza B Positive (Negative)
[2024-03-12] MEDS ORDERED: OSELTAMIVIR 75 MG CAP PO SCH (22:00)
[2024-03-12] MEDS: OSELTAMIVIR 75 MG CAP PO ONE (22:12)
[2024-03-12] MEDS: hydrOXYchloroQUINE SULFATE 200 MG TAB PO SCH (22:12)
[2024-03-13] VITALS (11 sets, daily range): BP systolic 138; BP diastolic 64; PULSE 82–111; RESP 18–22; TEMP 97.9; O2SAT 96–100
[2024-03-13 04:49] LABS: Alanine Aminotransferase 17 U/L (7-40); Albumin 4.2 g/dL (3.2-4.8); Anion Gap 7 (5-15); Aspartate Aminotransferase 23 U/L (13-40); BUN/Creatinine Ratio 18.9 (10.0-20.0); Blood Urea Nitrogen 20 mg/dL (9-23); Calcium 10.1 mg/dL (8.7-10.4); Carbon Dioxide 28 mmol/L (20-31); Chloride 100 mmol/L (98-107)
[2024-03-13 04:57] LABS: Basophils # (auto) 0 10 ^3/uL (0-0.2); Basophils % (auto) 0.2 % (0.0-2.0); Eosinophils # (auto) 0 10 ^3/uL (0-0.8); Hematocrit 44.9 % (41.0-53.0); Hemoglobin 15.2 g/dL (13.5-17.5); Lymphocytes # (auto) 0.4 10 ^3/uL (0.4-5.4); Lymphocytes % (auto) 6.7 % (10.0-50.0); Mean Corpuscular Hemoglobin 34.3 pg (28.0-32.0); Mean Corpuscular Hgb Conc. 33.8 g/dL (32.0-36.0); Mean Corpuscular Volume 101.3 fL (80.0-100.0); Monocytes # (auto) 0.2 10 ^3/uL (0-1.3); Monocytes % (auto) 2.7 % (0.0-12.0); Neutrophils # (auto) 5.9 10 ^3/uL (1.6-8.6); Neutrophils % (auto) 90.4 % (37.0-80.0); Nucleated Red Blood Cells % 0.1 %; Platelet Count (auto) 66 10^3/uL (140-450); Red Blood Cells 4.43 10^6/uL (4.5-5.90); Red Cell Distribution Width 13.7 % (11.8-14.3); White Blood Cell 6.5 10^3/uL (4.4-10.8)
[2024-03-13 05:03] LABS: Alkaline Phosphatase 200 U/L (46-116); Bilirubin, Total 1.4 mg/dL (0.2-1.0); Glucose 122 mg/dL (74-106); Potassium 5.4 mmol/L (3.5-5.1); Sodium 135 mmol/L (136-145)
--- NOTE | 2024-03-13 06:29 | DVH ---
CHEST RADIOGRAPH Indication: fu Technique: Single frontal view of the chest was obtained Comparison: XY CHEST PORTABLE on DOS: 03/11/24 FINDINGS: Lines and Tubes: None Lungs: Left basilar opacity. Bilateral interstitial prominence. Pleura: Left pleural effusion. No pneumothorax. Cardiomediastinal contours: Cardiomegaly. Bones: No acute osseous abnormality. IMPRESSION: 1. Bilateral interstitial prominence. Left basilar opacity.
[2024-03-13] MEDS: OSELTAMIVIR 30 MG CAP PO SCH (08:42)
[2024-03-13] MEDS: ACETAMINOPHEN 325 MG TAB PO PRN (08:46)
--- NOTE | 2024-03-13 12:36 | DVH ---
US CHEST ULTRASOUND, HISTORY: Pleural effusion on Echo COMPARISON(S): None TECHNICAL DATA: Transverse and longitudinal images are obtained of the chest. FINDING: IMPRESSION(S): Small left pleural effusion.
--- NOTE | 2024-03-13 12:49 | DVHPN2 ---
Subjective Patient was states that his chest pain has improved. Reviewed: Care Plan, H&P, Labs, Medications, Previous Orders, Radiology Changes from previous H/P or p: No Changes Respiratory: Cough, Shortness of breath Objective Vitals Vital Signs Date Time Temp Pulse Resp B/P (MAP) Pulse Ox O2 Delivery O2 Flow Rate FiO2 03/13/24 12:07 89 03/13/24 12:00 18 129/59 (82) 97 03/13/24 08:46 98.4 03/13/24 08:00 Room Air* 0 21 Intake/Output Intake and Output 03/13/24 07:00 Intake Total 250 ml Output Total 280 ml Balance -30 ml IV Total 250 ml Output Urine Total 280 ml General Appearance: Alert, Oriented X3, Cooperative, No acute distress HEENT: Atraumatic Lungs: Other (Few crackles bilateral lungs with rhonchi bilateral lungs) Cardiovascular: Normal S1, Normal S2, Other (Atrial fibrillation with controlled rate) Abdomen: Normal bowel sounds, Soft, No tenderness Extremities: No edema Psych/Mental Status: Mental status NL, Mood NL Medications Current Medications Medications Dose Ordered Sig/Louie Route Start Time Stop Time Status Last Admin Dose Admin Tamsulosin HCl 0.4 mg QPM PO 03/12/24 18:00 03/12/24 18:00 0.4 MG Metoprolol Tartrate 12.5 mg BID PO 03/11/24 22:00 03/13/24 10:29 12.5 MG Famotidine 20 mg DAILY IV 03/12/24 10:00 03/13/24 10:29 20 MG Acetaminophen/ Hydrocodone Bitart 1 tab Q4HP PRN PO 03/11/24 20:45 Ondansetron HCl 4 mg Q4HP PRN IV 03/11/24 20:45 Docusate Sodium 100 mg BIDPRN PRN PO 03/11/24 20:45 Acetaminophen 650 mg Q6HP PRN PO 03/11/24 20:45 03/13/24 08:46 650 MG Nitroglycerin 0.4 mg Q5MINP PRN SL 03/11/24 22:30 Morphine Sulfate 2 mg Q30M PRN IV 03/11/24 22:30 Melatonin 5 mg HSPRN PRN PO 03/11/24 23:30 Hydroxychloroquine Sulfate 200 mg BID PO 03/12/24 22:00 03/13/24 10:27 200 MG Doxycycline Hyclate 250 ml @ 125 mls/hr Q12H IV 03/12/24 11:00 03/13/24 11:35 125 MLS/HR Albuterol 2.5 mg Q3HPRN PRN NEB 03/12/24 11:00 Ipratropium [place] 0.5 mg Q6HR NEB 03/12/24 12:00 03/13/24 06:53 0.5 MG Lactulose 30 ml DAILY PRN PO 03/12/24 11:00 Oseltamivir Phosphate 30 mg Q12H PO 03/13/24 09:00 03/17/24 20:59 03/13/24 08:42 30 MG Furosemide 40 mg DAILY PO 03/13/24 12:00 Laboratory Results Laboratory Tests 03/13/24 04:09 Chemistry Test 03/13/24 04:09 Albumin 4.2 g/dL (3.2-4.8) Calcium Level 10.1 mg/dL (8.7-10.4) Total Protein 7.0 g/dL (5.7-8.2) LFT Test 03/13/24 04:09 Alanine Aminotransferase (ALT) 17 U/L (7-40) Alkaline Phosphatase 200 U/L (46-116) H Aspartate Amino Transferase (AST) 23 U/L (13-40) Total Bilirubin 1.4 mg/dL (0.2-1.0) H Urinalysis Test 03/12/24 08:28 Urine Color Yellow (Yellow) Urine Clarity Clear (Clear) Urine pH 6.5 (5.0-9.0) Urine Specific [place] 1.023 (1.001-1.035) Urine Protein 1+ (Negative) H Urine Ketones Negative (Negative) Urine Blood Negative /uL (Negative) Urine Nitrite Negative (Negative) Urine Bilirubin Negative (Negative) Urine Urobilinogen Normal mg/dL (Negative) Urine Leukocyte Esterase Negative /uL (Negative) Urine RBC 11 /hpf (0 - 3) Urine WBC 2 /hpf (0 - 3) Urine Squamous Epithelial Cells None seen /hpf (<5) Urine Calcium Oxalate Crystals Mod (None Seen) Urine Bacteria None seen /hpf (None Seen) Urine Mucus Few (None Seen) Urine Glucose Normal mg/dL (Normal) Labs and/or images reviewed: Labs reviewed by me, Image(s) reviewed by me Assessment/Plan Assessment/Plan Impression: -atrial fibrillation with rapid ventricular rate, now controlled -cachexia -influenza B -primary hypertension -acute on chronic systolic heart failure with ejection fraction 30% -left pleural effusion -osteoarthritis Plan: -chest ultrasound with minimal effusion. No need for thoracentesis -cardiology consultation: Recommendations reviewed. Patient refusing anticoagulation at this time. Patient also high-risk for falls in addition to risk for cerebral bleed given he lives alone in his 83 -continue Tamiflu -continue goal-directed medical therapy for heart failure -reassess for discharge in a.m.. Patient currently hyperkalemic. We will repeat potassium this evening after diuresis today. Total time spent with patient discussing and formulating plan of care: 35 minutes. This medical document was created using an electronic medical record system with [employer] dictation system. Although this document has been carefully reviewed, there may still be some phonetic and typographical errors. These areas are purely typographical due to imperfections of the software programs, and do not reflect any compromise in the patient's medical care. Plan discussed with: Patient, Other (RN) My Orders Orders - JANA ORNELAS NP Procedure Category Date Status Time Chest Ultrasound US 03/13/24 Resulted 11:53 Furosemide Tablet PHA 03/13/24 In Process (Lasix Tablet) 12:00 Potassium LAB 03/13/24 Transmitted 16:00 Date of Service: Mar 13, 2024 Billing Provider: AJNA ORNELAS NP Common Visit Codes: [id number] INP/OBS CARE(HIGH) JAAN ORNELAS NP Mar 13, 2024 12:49
[2024-03-13] MEDS: FUROSEMIDE 20 MG TAB PO SCH (13:07)
[2024-03-13] MEDS: ALBUTEROL SULF 2.5 MG/0.5ML(0.5%) NEB SOLN NEB PRN (13:18)
--- NOTE | 2024-03-13 23:41 | DVHPN2 ---
Progress Note - Dictate Date Seen: Mar 13, 2024 Medical Necessity Reason Pt with a Central, PICC or Fol: No Subjective Patient was seen and evaluated in follow up. Patient states that his chest pain has improved. Chest x-ray shows bilateral interstitial prominence, left basilar opacity. Chest US shows a small left pleural effusion. K 5.4. vital signs Vital Sign Date Time Temp Pulse Resp B/P (MAP) Pulse Ox O2 Delivery O2 Flow Rate FiO2 03/13/24 22:31 93 136/78 03/13/24 20:00 97.4 28 99 97.4 03/13/24 19:20 Room Air* 0 21 Total Intake and Output 03/12/24 03/12/24 03/13/24 15:00 23:00 07:00 Intake Total 250 ml Output Total 280 ml Balance 250 ml -280 ml medications Current Medications Medications Dose Ordered Sig/Louie Route Start Time Stop Time Status Last Admin Dose Admin Tamsulosin HCl 0.4 mg QPM PO 03/12/24 18:00 03/13/24 18:09 0.4 MG Metoprolol Tartrate 12.5 mg BID PO 03/11/24 22:00 03/13/24 10:29 12.5 MG Famotidine 20 mg DAILY IV 03/12/24 10:00 03/13/24 10:29 20 MG Acetaminophen/ Hydrocodone Bitart 1 tab Q4HP PRN PO 03/11/24 20:45 Ondansetron HCl 4 mg Q4HP PRN IV 03/11/24 20:45 Docusate Sodium 100 mg BIDPRN PRN PO 03/11/24 20:45 Acetaminophen 650 mg Q6HP PRN PO 03/11/24 20:45 03/13/24 22:18 650 MG Nitroglycerin 0.4 mg Q5MINP PRN SL 03/11/24 22:30 Morphine Sulfate 2 mg Q30M PRN IV 03/11/24 22:30 Melatonin 5 mg HSPRN PRN PO 03/11/24 23:30 Hydroxychloroquine Sulfate 200 mg BID PO 03/12/24 22:00 03/13/24 22:18 200 MG Doxycycline Hyclate 250 ml @ 125 mls/hr Q12H IV 03/12/24 11:00 03/13/24 22:22 125 MLS/HR Albuterol 2.5 mg Q3HPRN PRN NEB 03/12/24 11:00 03/13/24 18:13 2.5 MG Ipratropium [place] 0.5 mg Q6HR NEB 03/12/24 12:00 03/13/24 18:13 0.5 MG Lactulose 30 ml DAILY PRN PO 03/12/24 11:00 Oseltamivir Phosphate 30 mg Q12H PO 03/13/24 09:00 03/17/24 20:59 03/13/24 22:18 30 MG Furosemide 40 mg DAILY PO 03/13/24 12:00 03/13/24 13:07 40 MG objective GENERAL: Awake, alert, oriented. Thin appearing. LUNGS: Diminished bilateral lobe sounds. CARDIOVASCULAR: Irregular rate and rhythm. ABDOMEN: Soft. laboratory and microbiology Laboratory Tests 03/13/24 16:52 03/13/24 04:09 Test 03/13/24 04:09 Range/Units Serum Glucose 122 H 74-106 mg/dL Problem List Chest pain, likely noncardiac. Longstanding persistent atrial fibrillation, Stage 3c (off NOAC therapy). Chronic HFpEF, NYHA class II (last echo on 08/21/23 reveals EF 60%). Hypertension. Mitral regurgitation, severe degree. Thoracic aortic aneurysm. COPD exacerbations. Thrombocytopenia. Cachexia. Anxiety. Assessment/Plan Continued all current supportive medical care. Patient to follow up with his improvement analyst at the [facility] in [place] within 1-2 weeks post discharge. We would also like to make the recommendation for possible Watchman device placement given that the patient is refusing anticoagulation. Chest pain protocol. Patient adamantly refuses NOAC therapy. Beta-tan for rate control. Avoid antiarrhythmic agent given persistent atrial fibrillation. BP control. Monitor platelet count closely. Cardiac surveillance. Additional plan as per the hospital course. Plan discussed with: Patient CARMELLA GILLETTE MD Mar 13, 2024 23:41
[2024-03-14] VITALS (12 sets, daily range): BP systolic 126–135; BP diastolic 65–74; PULSE 70–99; RESP 16–18; TEMP 37; O2SAT 95–100
[2024-03-14] MEDS ORDERED: TAMIFLU PO (12:11)
--- NOTE | 2024-03-14 12:53 | DVHDS2 ---
Discharge Summary Date of Admission Mar 11, 2024 at 22:28 Date of Discharge: Mar 14, 2024 Admitting Diagnosis COPD with acute exacerbation Labs/Diagnostic Data: Laboratory Results Test 03/13/24 16:52 03/13/24 04:09 03/12/24 19:05 03/12/24 08:28 Potassium Level 4.7 mmol/L (3.5-5.1) White Blood Count 6.5 10^3/uL (4.4-10.8) Red Blood Count 4.43 10^6/uL (4.5-5.90) Hemoglobin 15.2 g/dL (13.5-17.5) Hematocrit 44.9 % (41.0-53.0) Mean Corpuscular Volume 101.3 fL (80.0-100.0) Mean Corpuscular Hemoglobin 34.3 pg (28.0-32.0) Mean Corpuscular Hemoglobin Concent 33.8 g/dL (32.0-36.0) Red Cell Distribution Width 13.7 % (11.8-14.3) Platelet Count 66 10^3/uL (140-450) Mean Platelet Volume 10.0 fL (6.9-10.8) Neutrophils (%) (Auto) 90.4 % (37.0-80.0) Lymphocytes (%) (Auto) 6.7 % (10.0-50.0) Monocytes (%) (Auto) 2.7 % (0.0-12.0) Eosinophils (%) (Auto) 0.0 % (0.0-7.0) Basophils (%) (Auto) 0.2 % (0.0-2.0) Neutrophils # (Auto) 5.9 10 ^3/uL (1.6-8.6) Lymphocytes # (Auto) 0.4 10 ^3/uL (0.4-5.4) Monocytes # (Auto) 0.2 10 ^3/uL (0-1.3) Eosinophils # (Auto) 0 10 ^3/uL (0-0.8) Basophils # (Auto) 0 10 ^3/uL (0-0.2) Nucleated Red Blood Cells 0.1 % Sodium Level 135 mmol/L (136-145) Chloride Level 100 mmol/L (98-107) Carbon Dioxide Level 28 mmol/L (20-31) Anion Gap 7 (5-15) Blood Urea Nitrogen 20 mg/dL (9-23) Creatinine 1.06 mg/dL (0.700-1.30) Glomerular Filtration Rate Calc 69 mL/min (>90) BUN/Creatinine Ratio 18.9 (10.0-20.0) Serum Glucose 122 mg/dL (74-106) Calcium Level 10.1 mg/dL (8.7-10.4) Total Bilirubin 1.4 mg/dL (0.2-1.0) Aspartate Amino Transferase (AST) 23 U/L (13-40) Alanine Aminotransferase (ALT) 17 U/L (7-40) Alkaline Phosphatase 200 U/L (46-116) Total Protein 7.0 g/dL (5.7-8.2) Albumin 4.2 g/dL (3.2-4.8) Influenza Type A Antigen Negative (Negative) Influenza Type B Antigen Positive (Negative) Urine Color Yellow (Yellow) Urine Clarity Clear (Clear) Urine pH 6.5 (5.0-9.0) Urine Specific Dodson 1.023 (1.001-1.035) Urine Protein 1+ (Negative) Urine Ketones Negative (Negative) Urine Blood Negative /uL (Negative) Urine Nitrite Negative (Negative) Urine Bilirubin Negative (Negative) Urine Urobilinogen Normal mg/dL (Negative) Urine Leukocyte Esterase Negative /uL (Negative) Urine RBC 11 /hpf (0 - 3) Urine WBC 2 /hpf (0 - 3) Urine Squamous Epithelial Cells None seen /hpf (<5) Urine Calcium Oxalate Crystals Mod (None Seen) Urine Bacteria None seen /hpf (None Seen) Urine Mucus Few (None Seen) Urine Glucose Normal mg/dL (Normal) Test 03/12/24 05:30 03/11/24 16:46 03/11/24 14:07 Magnesium Level 2.3 mg/dL (1.6-2.6) Triglycerides Level 52 mg/dL (< 150) Cholesterol Level 96 mg/dL (< 200) LDL Cholesterol 40 mg/dL (< 100) HDL Cholesterol 47 mg/dL (40-59) Thyroid Stimulating Hormone (TSH) 2.60 uIU/mL (0.55-4.78) Troponin I High Sensitivity 18 ng/L (</=54) Hemoglobin A1c 5.2 % A1C (<5.7) Other Laboratory Tests 03/13/24 16:52 03/13/24 04:09 Brief Hx & Hospital Course: History of Present Illness The patient is a 83-year-old male with past medical history of AFib, arthritis, CHF, COPD, and PUD presented to [facility] ED with complaint of chest pain. Patient reports symptoms progressively get worse with dizziness, coughing, shortness of breath, getting worse that prompted this visit. Patient was seen and evaluated in the ED, laboratory data shows WBC 10.4, platelets 71, sodium 135, potassium 4.4, BUN 18, creatinine 1.07, GFR 68, glucose 144, troponin 18, blood pressure 103/65, heart rate 82, temperature 97.9 F, O2 saturation 96% on room air. Chest x-ray revealing cardiomegaly with mild congestion. Please see medication orders section in the computer. On my assessment, patient denies chest pain, no headache, no dizziness, no diaphoresis, no abdominal pain, no diarrhea, no nausea, no vomiting, no fever, no chills. Patient was admitted for further evaluation and medical management. Course of hospitalization: Patient was found to have atrial fibrillation for which Cardiology consultation was obtained. Patient was found to have small left pleural effusion on chest x- ray as well as confirmation with ultrasound. Patient has been on room air with oxygen saturation remaining 96%. Patient was found to have influenza B. He was started on Tamiflu. Patient was requesting to be discharged home. He will be continued on all his previous home medications. He will also be prescribed Tamiflu 75 mg p.o. b.i.d. to continue his current hospital course. Physical examination General: Alert and Oriented x3. No acute distress. Cachexia Eyes: EOMI. Anicteric. HENT: Moist mucous membranes. Lungs: Clear to auscultation bilaterally. No accessory muscle use. Cardiovascular: Regular rate and rhythm. No murmur. No JVD. Abdomen: Soft, non-tender and non-distended. No palpable masses. Extremities: No edema. Non-tender. Skin: No rashes or lesions. Warm. Neurologic: No focal neurological deficits. CN II-XII grossly intact, but not individually tested. Psychiatric: Cooperative. Appropriate mood and affect. Total time spent with patient discussing and formulating plan of care: 35 minutes. This medical document was created using an electronic medical record system with [employer] dictation system. Although this document has been carefully reviewed, there may still be some phonetic and typographical errors. These areas are purely typographical due to imperfections of the software programs, and do not reflect any compromise in the patient's medical care. Consults/Reason for consult Cardiology: Atrial fibrillation Condition at Discharge: Guarded Final Diagnosis/Problems List Influenza A with Viral pna Secondary Diagnosis: -atrial fibrillation with rapid ventricular rate, now controlled -cachexia -influenza B -primary hypertension -acute on chronic systolic heart failure with ejection fraction 30% -left pleural effusion -osteoarthritis Discharge Disposition: Home Discharge Instruct/Medications Diet: Cardiac 2g Na,low cholest Activity: No Restrictions, As Tolerated Follow Up/Referral: PCP in 1-2 weeks Medications: Tamiflu 75mg po x 4 days 36 Discharge Statement: "Patient was advised to return to the ER or call 911 if any headaches, dizziness, shortness of breath, chest pain, abdominal pain, bleeding, fevers, or worsening of medical condition. Patient was counseled about treatment plan, medications, possible side effects, patientverbalized understanding. All questions were answered to the best of my ability. This discharge took greater then 30 minutes in planning, reviewing documentation, counseling the patient, and discussing with other team members." ASSESSMENT ASSESSMENT Assessment Influenza A with Viral pna Date of Service: Mar 14, 2024 Billing Provider: JANA ORNELAS NP Common Visit Codes: 19378-OOO/OBS DISCH DAY >30min JANA ORNELAS NP Mar 14, 2024 12:53
--- NOTE | 2024-03-15 00:01 | DVHPN2 ---
Progress Note - Dictate Date Seen: Mar 14, 2024 Medical Necessity Reason Pt with a Central, PICC or Fol: No Subjective Patient was seen and evaluated in follow up. Patient has no new complaints at this time. Patient denies any cardiac symptoms. Patient is cardiac stable for discharge. vital signs Vital Sign Date Time Temp Pulse Resp B/P (MAP) Pulse Ox O2 Delivery O2 Flow Rate FiO2 03/14/24 13:18 82 16 100 03/14/24 13:12 Room Air 0.0 03/14/24 13:12 21 03/14/24 13:00 97.7 135/74 (94) 97.7 objective GENERAL: Awake, alert, oriented. Thin appearing. LUNGS: Diminished bilateral lobe sounds. CARDIOVASCULAR: Irregular rate and rhythm. ABDOMEN: Soft. laboratory and microbiology Laboratory Tests 03/13/24 16:52 03/13/24 04:09 Test 03/13/24 04:09 Range/Units Serum Glucose 122 H 74-106 mg/dL Problem List Chest pain, likely noncardiac. Longstanding persistent atrial fibrillation, Stage 3c (off NOAC therapy). Chronic HFpEF, NYHA class II (last echo on 08/21/23 reveals EF 60%). Hypertension. Mitral regurgitation, severe degree. Thoracic aortic aneurysm. COPD exacerbations. Thrombocytopenia. Cachexia. Anxiety. Assessment/Plan Continued all current supportive medical care. Patient to follow up with his material dispatcher at the [facility] in [place] within 1-2 weeks post discharge. We would also like to make the recommendation for possible Watchman device placement given that the patient is refusing anticoagulation. Chest pain protocol. Patient adamantly refuses NOAC therapy. Beta-tan for rate control. Avoid antiarrhythmic agent given persistent atrial fibrillation. BP control. Monitor platelet count closely. Cardiac surveillance. Additional plan as per the hospital course. Plan discussed with: Patient CARMELLA GILLETTE MD Mar 15, 2024 00:00
== END 2024-03-14 14:00 | disposition home or self-care (01) | DRG 193 ==
LOC: EDBD 14:02 → ER 14:02 → TELE 22:28 → TELE-CENTR 03-13 20:55
PROVIDERS: ADMIT Nurse Practitioner Family; ATTEND Nurse Practitioner Acute Care
DX: J10.08 Influenza due to other identified influenza virus with other specified pneumonia (principal); I50.43 Acute on chronic combined systolic (congestive) and diastolic (congestive) heart failure; I48.11 Longstanding persistent atrial fibrillation; R64 Cachexia; Z68.1 Body mass index [BMI] 19.9 or less, adult; J12.9 Viral pneumonia, unspecified; J44.1 Chronic obstructive pulmonary disease with (acute) exacerbation; J44.0 Chronic obstructive pulmonary disease with (acute) lower respiratory infection; I11.0 Hypertensive heart disease with heart failure; D69.6 Thrombocytopenia, unspecified; R73.9 Hyperglycemia, unspecified; I08.1 Rheumatic disorders of both mitral and tricuspid valves; F41.9 Anxiety disorder, unspecified; I71.20 Thoracic aortic aneurysm, without rupture, unspecified; N40.0 Benign prostatic hyperplasia without lower urinary tract symptoms; Z82.49 Family history of ischemic heart disease and other diseases of the circulatory system; Z87.11 Personal history of peptic ulcer disease; Z87.891 Personal history of nicotine dependence
CPT/HCPCS: 36415; 71045; 76604; 80048; 80053; 80061; 81001; 83036; 83735; 84132; 84443; 84484; 85025; 87804; 93005; 93306; 94640; 99291; G0378; G9035; J3490

== ENCOUNTER 2024-04-17 09:31 | Inpatient (IN) | payer OTHER, MEDICARE ==
[~2024-04-17] VITALS: Ht 180.3 cm; Wt 58.2 kg
[~2024-04-17 09:31] MED LIST changes: +TAMIFLU PO
--- NOTE | 2024-04-17 10:14 | ED.PDOC ---
SOB-HPI HPI Comments 83 y/o M with PMHX of COPD presents to the ED for CC of shortness of breath. Patient states that he has been experiencing shortness of breath with associated dizziness x4days. Patient relays, that has experienced similar symptoms in the past when he was diagnosed with pneumonia. Patient denies social history. Patient denies fever, chills, body-aches, or N/V/D. No other symptoms or modifying factors at this time. Chief Complaint: Shortness of Breath Time Seen by MD: 09:30 Primary Care Provider: ADAM Reviewed notes: Nurses Notes, Medications, Allergies Information Source: Patient Mode of Arrival: Ambulatory Severity: Mild Timing: Days Duration: Since onset Context: At Rest PE Risk Factors: None History of: COPD Prehospital treatment: None Modifying Factors: Nothing Associated Signs and Symptoms: None Past Medical History PAST MEDICAL HISTORY: AFIB, Arthritis, CHF, COPD, PUD Surgical History: Hernia Repair, Tonsillectomy Family History Family History: Reviewed,noncontributory to illness Social History Smoker: Non-Smoker Alcohol: Denies ETOH Use Drugs: Denies Drug Use Lives In: Home Constitutional: denies: chills, diaphoresis, fatigue, fever, malaise, sweats, weakness, others EENTM: denies: blurred vision, double vision, ear bleeding, ear discharge, ear drainage, ear pain, ear ringing, eye pain, eye redness, hearing loss, mouth pain, mouth swelling, nasal discharge, nose bleeding, nose congestion, nose pain, photophobia, tearing, throat pain, throat swelling, voice changes, others Respiratory: reports: shortness of breath; denies: cough, hemoptysis, orthopnea, SOB at rest, SOB with excertion, stridor, wheezing, others Cardiovascular: denies: chest pain, dizzy spells, diaphoresis, Dyspnea on exertion, edema, irregular heart beat, left arm pain, lightheadedness, palpitations, PND, syncope, others Gastrointestinal: denies: abdomen distended, abdominal pain, blood streaked bowels, constipated, diarrhea, dysphagia, difficulty swallowing, hematemesis, melena, nausea, poor appetite, poor fluid intake, rectal bleeding, rectal pain, vomiting, others Genitourinary: denies: burning, dysuria, flank pain, frequency, hematuria, incontinence, penile discharge, penile sore, pain, testicle pain, testicle swelling, urgency, others Neurological: reports: dizziness; denies: fainting, headache, left sided numbness, left sided weakness, numbness, paresthesia, pre-existing deficit, right sided numbness, right sided weakness, seizure, speech problems, tingling, tremors, weakness, others Musculoskeletal: denies: back pain, gout, joint pain, joint swelling, muscle pain, muscle stiffness, neck pain, others Integumetry: denies: bruises, change in color, change in hair/nails, dryness, laceration, lesions, lumps, rash, wounds, others Allergic/Immunocompromised: denies: Difficulty Healing, Frequent Infections, Hives, Itching, others Hematologic/Lymphatic: denies: anemia, blood clots, easy bleeding, easy bruising, swollen glands, others Endocrine: denies: excessive hunger, excessive sweating, excessive thirst, excessive urination, flushing, intolerance to cold, intolerance to heat, unexp lained weight gain, unexplained weight loss, others Psychiatric: denies: anxiety, bipolar disorder, depression, hopeless, panic disorder, schizophrenia, sleepless, suicidal, others All Other Systems: Reviewed and Negative Physical Exam General Appearance: Moderate Distress HEENT: Normal ENT Inspection, Pharynx Normal, TMs Normal Neck: Full Range of Motion, Non-Tender, Normal, Normal Inspection Respiratory: Accessory Muscle Use, Respiratory Distress, Other (Coarse breath sounds) Cardiovascular: Irregular Breast Exam: Deferred Gastrointestinal: No Organomegaly, Non Tender, No Pulsatile Mass, Normal Bowel Sounds, Soft Genitalia: Deferred Pelvic: Deferred Rectal: Deferred Extremities: No calf tenderness, Normal capillary refill, Normal inspection, Normal range of motion, Non-tender, No pedal edema Musculoskeletal : Apperance: Normal Neurologic: Alert, software trainer II-XII nml as Tested, No Motor Deficits, Normal Affect, Normal Mood, No Sensory Deficits Cerebellar Function: NOT DONE Reflexes: NOT DONE Skin: Dry, Normal Color, Warm Peripheral Pulses: 3+ Radial (R), 3+ Radial (L) Lymphatic: No Adenopathy EKG EKG : Pulse Rate (adult): 118 [place]: Normal Cardiac Rhythm: Afib Block: None Hypertrophy: None ST: Normal Was a procedure done? Was a procedure done?: No Differential Dx Differential Diagnosis: Anxiety, Asthma, Bronchitis, CHF, COPD, Pneumonia X-Ray, Labs, Meds, VS Vital Signs Date Time Temp Pulse Resp B/P (MAP) Pulse Ox O2 Delivery O2 Flow Rate FiO2 04/17/24 10:14 118 04/17/24 10:00 Room Air* 0 21 04/17/24 09:58 114 04/17/24 09:47 118 04/17/24 09:39 97.6 148 24 143/79 (100) 97 Lab Test 04/17/24 10:16 Range/Units White Blood Count 7.8 4.4-10.8 10^3/uL Red Blood Count 4.21 L 4.5-5.90 10^6/uL Hemoglobin 14.4 13.5-17.5 g/dL Hematocrit 42.8 41.0-53.0 % Mean Corpuscular Volume 101.7 H 80.0-100.0 fL Mean Corpuscular Hemoglobin 34.2 H 28.0-32.0 pg Mean Corpuscular Hemoglobin Concent 33.7 32.0-36.0 g/dL Red Cell Distribution Width 14.6 H 11.8-14.3 % Platelet Count 63 L 140-450 10^3/uL Mean Platelet Volume 10.8 6.9-10.8 fL Neutrophils (%) (Auto) 80.6 H 37.0-80.0 % Lymphocytes (%) (Auto) 9.9 L 10.0-50.0 % Monocytes (%) (Auto) 8.4 0.0-12.0 % Eosinophils (%) (Auto) 0.4 0.0-7.0 % Basophils (%) (Auto) 0.7 0.0-2.0 % Neutrophils # (Auto) 6.3 1.6-8.6 10 ^3/uL Lymphocytes # (Auto) 0.8 0.4-5.4 10 ^3/uL Monocytes # (Auto) 0.7 0-1.3 10 ^3/uL Eosinophils # (Auto) 0 0-0.8 10 ^3/uL Basophils # (Auto) 0.1 0-0.2 10 ^3/uL Nucleated Red Blood Cells 0.2 % Sodium Level 138 136-145 mmol/L Potassium Level 4.6 3.5-5.1 mmol/L Chloride Level 103 98-107 mmol/L Carbon Dioxide Level 28 20-31 mmol/L Anion Gap 7 5-15 Blood Urea Nitrogen 26 H 9-23 mg/dL Creatinine 1.18 0.700-1.30 mg/dL Glomerular Filtration Rate Calc 60 >90 mL/min BUN/Creatinine Ratio 22.0 H 10.0-20.0 Serum Glucose 103 74-106 mg/dL Calcium Level 9.6 8.7-10.4 mg/dL Troponin I High Sensitivity 28 </=54 ng/L Current Medications Medications (Trade) Dose Ordered Sig/Louie Route Start Time Stop Time Status Last Admin Methylprednisolone Sodium Succinate (Solu Medrol) 125 mg ONCE ONCE IV 04/17/24 10:15 04/17/24 10:16 DC 04/17/24 10:55 [place] [id number] Ph: [phone] DIAGNOSTIC IMAGING Diagnostic Imaging Report : [id number] Signed PATIENT: CORONA ZEPEDA ACCT: [id number] UNIT: [id number] : 1940 LOC: ER ROOM / BED: / AGE / SEX: 83 / M ADM STATUS: REG ER SERVICE 1006 ORDERING PHYSICIAN: ZULMA PATEL MD PROCEDURE(s): CXRP - CHEST PORTABLE REASON: sob ORDER NUMBER(s): [id number], ACCESSION NUMBER(s): [id number] CLINICAL INFORMATION: 83 years old, Male; shortness of breath. TECHNIQUE: AP portable chest radiographs were obtained. COMPARISON: XY CHEST PORTABLE on DOS: 03/13/24, XY CHEST PORTABLE on DOS: 03/11/24, XY CHEST PORTABLE on DOS: 09/19/23 FINDINGS: Lungs: Blunting of the left costophrenic angle suggesting small left pleural effusion with overlying atelectasis and consolidation, similar in appearance compared to the prior radiographs. Prominent interstitial opacities in the right lower lung are new more conspicuous compared to the prior exam. There is patchy irregular opacity in the lateral aspect of the right lung. Similar-appearing emphysematous changes. Cardiac: Unchanged [id number] cardiomegaly. Pulmonary vasculature: Unremarkable. Mediastinum/princess: Dense atherosclerotic calcification of the aortic arch. Bones: No acute osseous abnormality identified. Other: No other significant findings. IMPRESSION: 1. New or worsening interstitial opacities in the right lung base, may be infectious or inflammatory in nature in the appropriate clinical setting. 2. Irregular opacity in the lateral aspect of the right mid lung demonstrates slightly increased density compared to the prior radiographs. may be scarring. Irregular nodule not completely excluded. CT chest could be obtained to further characterize. 3. Small left pleural effusion with overlying atelectasis and consolidation, similar in appearance compared to the prior exam. 4. Additional findings as detailed above ATED BY: ENOCH FRENCH DO DICTATED DATE/TIME: 04/17/24 1035 SIGNED BY: ENOCH FRENCH DO SIGNED DATE/TIME: 04/17/24 1035 CC: Patient alert. Complaining of shortness a breath. Vitals stable. Using accessory muscles. Continues to have shortness a breath. EKG shows atrial fibrillation. He is not on blood thinner. COPD. Was given steroid. Reviewed his previous visit. Explained to the patient. Continue cardiac monitoring. Time of 1ST Reevaluation: 10:00 Reevaluation 1ST: Unchanged Patient Education/Counseling: Diagnosis, Treatment Family Education/Counseling: No Family Present Departure 1 Departure Time of Disposition: 10:43 Impression: Primary Impression: Pneumonitis Additional Impressions: COPD with acute exacerbation Atrial fibrillation with rapid ventricular response Disposition: ADMITTED INPATIENT Admit to: Med Surg Condition: Guarded Critical Care Note Critical Care Time?: Yes (45 min-critical care time only) Critical care comment: Shortness a breath Accessory muscle use. COPD exacerbation. Stability Stability form required: No Heart Score Heart Score: Heart Score Response (Comments) Value History Slightly Suspicious 0 EKG Normal 0 Age >65 2 Risk Factors >3 or Hx ASHD 2 Troponin Normal limit 0 Total 4 I personally scribed for ZULMA PATEL MD ([email or web address]) on 04/17/24 at 10:14. Electronically submitted by Brittany Baugh ([email or web address]). I personally scribed for ZULMA PATEL MD ([email or web address]) on 04/17/24 at 11:28. Electronically submitted by Brittany Baugh [email or web address]). ZULMA PATEL MD Apr 17, 2024 10:14
--- NOTE | 2024-04-17 10:38 | DVH ---
CLINICAL INFORMATION: 83 years old, Male; shortness of breath. TECHNIQUE: AP portable chest radiographs were obtained. COMPARISON: XY CHEST PORTABLE on DOS: 03/13/24, XY CHEST PORTABLE on DOS: 03/11/24, XY CHEST PORTABLE on DOS: 09/19/23 FINDINGS: Lungs: Blunting of the left costophrenic angle suggesting small left pleural effusion with overlying atelectasis and consolidation, similar in appearance compared to the prior radiographs. Prominent int erstitial opacities in the right lower lung are new more conspicuous compared to the prior exam. Ther e is patchy irregular opacity in the lateral aspect of the right lung. Similar-appearing emphysematou s changes. Cardiac: Unchanged [id number] cardiomegaly. Pulmonary vasculature: Unremarkable. Mediastinum/princess: Dense atherosclerotic calcification of the aortic arch. Bones: No acute osseous abnormality identified. Other: No other significant findings. IMPRESSION: 1. New or worsening interstitial opacities in the right lung base, may be infectious or inflammatory in nature in the appropriate clinical setting. 2. Irregular opacity in the lateral aspect of the right mid lung demonstrates slightly increased dens ity compared to the prior radiographs. may be scarring. Irregular nodule not completely excluded. CT chest could be obtained to further characterize. 3. Small left pleural effusion with overlying atelectasis and consolidation, similar in appearance co mpared to the prior exam. 4. Additional findings as detailed above
[2024-04-17 10:42] LABS: Eosinophils # (auto) 0 10 ^3/uL (0-0.8); Eosinophils % (auto) 0.4 % (0.0-7.0); Lymphocytes # (auto) 0.8 10 ^3/uL (0.4-5.4); Neutrophils # (auto) 6.3 10 ^3/uL (1.6-8.6); Nucleated Red Blood Cells % 0.2 %; Red Cell Distribution Width 14.6 % (11.8-14.3); White Blood Cell 7.8 10^3/uL (4.4-10.8)
[2024-04-17 10:46] LABS: Basophils # (auto) 0.1 10 ^3/uL (0-0.2); Basophils % (auto) 0.7 % (0.0-2.0); Hematocrit 42.8 % (41.0-53.0); Hemoglobin 14.4 g/dL (13.5-17.5); Lymphocytes % (auto) 9.9 % (10.0-50.0); Mean Corpuscular Hemoglobin 34.2 pg (28.0-32.0); Mean Corpuscular Hgb Conc. 33.7 g/dL (32.0-36.0); Mean Corpuscular Volume 101.7 fL (80.0-100.0); Monocytes # (auto) 0.7 10 ^3/uL (0-1.3); Monocytes % (auto) 8.4 % (0.0-12.0); Neutrophils % (auto) 80.6 % (37.0-80.0); Platelet Count (auto) 63 10^3/uL (140-450); Red Blood Cells 4.21 10^6/uL (4.5-5.90)
[2024-04-17] MEDS: methylPREDNISolone SOD SUCC 125 MG/2 ML VL IV ONE (10:55)
[2024-04-17 10:56] LABS: Calcium 9.6 mg/dL (8.7-10.4); Carbon Dioxide 28 mmol/L (20-31)
[2024-04-17 11:01] LABS: Glucose 103 mg/dL (74-106)
[2024-04-17 11:09] LABS: Blood Urea Nitrogen 26 mg/dL (9-23)
[2024-04-17 11:13] LABS: Anion Gap 7 (5-15); Chloride 103 mmol/L (98-107); Potassium 4.6 mmol/L (3.5-5.1); Sodium 138 mmol/L (136-145)
[2024-04-17 12:28] VITALS: BP 152/94; PULSE 91; RESP 20; TEMP 99.4; O2SAT 96
[2024-04-17] MEDS ORDERED: DOCUSATE SOD 100 MG CAP PO PRN (12:30)
[2024-04-17] MEDS ORDERED: HYDROcodone-ACET 5/325MG TAB PO PRN (12:30)
[2024-04-17 12:45] VITALS: BP 130/62; PULSE 112; RESP 22; O2SAT 96
[2024-04-17] MEDS: FAMOTIDINE (10MG/ML) 2ML VL IV ONE (13:07)
[2024-04-17] MEDS: methylPREDNISolone SOD SUCC 40 MG/ML VL IV SCH (13:50)
[2024-04-17] MEDS: SODIUM CHLOR 0.9% PF (SALINE LOCK) 10ML VIAL/SYR IV SCH (13:50)
[2024-04-17] MEDS: ACETAMINOPHEN 325 MG TAB PO PRN (14:08)
--- NOTE | 2024-04-17 14:22 | DVHHP2 ---
History of Present Illness Reason for Visit: COPD with acute exacerbation History of Present Illness The patient is a 83-year-old male with past medical history of AFib, arthritis, CHF, COPD, and PUD presented to [facility] ED with complaint of shortness of breaths. Patient reports he has been experiencing shortness of breaths for the past 4 days, dizziness, getting worse today that prompted this visit. Patient was seen and evaluated in the ED, laboratory data shows WBC 7.6, platelets 63, sodium 138, potassium 4.6, BUN 26, creatinine 1.18, GFR 60, glucose 103, troponin 28, BNP 1034.07, blood pressure 142/79, heart rate 1 one eight, temperature 97.6 F, O2 saturation 97% on oxygen. Chest x-ray revealing new or worsening interstitial opacity in the right lung base, may be infectious or inflammatory in nature, irregular opacity in the lateral aspect of the right mid lung demonstrates slightly increased density compared to the prior radiography, may be scarring, irregular nodules not completely excluded; small left pleural effusion with overlying atelectasis and consolidations, similar in appearance compared to the prior exam. Patient was started on IV Lasix, given antibiotic regimen levofloxacin, please see medication orders section in the computer. On my assessment, patient denied chest pain, no headache, no dizziness, no diaphoresis, currently on oxygen, no nausea, no vomiting, fever, no chills. Patient was admitted evaluation medical management. Past Medical History AFIB, Arthritis, CHF, COPD, PUD Past Surgical History Hernia Repair, Tonsillectomy Family History Reviewed, noncontributory to the management of this case. Past Social History The patient lives at home, denies smoking, alcohol or illicit drugs abuse. Review of Systems Constitutional: Yes: Weakness; No: Fever, Chills, Sweats, Malaise, Other Eyes: No: Pain, Vision change, Conjunctivae inflammation, Eyelid inflammation, Other, Redness ENT: No: Ear pain, Ear discharge, Nose pain, Nose discharge, Nose congestion, Mouth pain, Mouth swelling, Throat pain, Throat swelling, Other Respiratory: Shortness of breath; No: Cough, Dry, SOB with excertion, Wheezing, Hemoptysis, Pleuritic Pain, Sputum, Wheezing, Other Cardiovascular: No: Chest Pain, Palpitations, Orthopnea, Paroxysmal Noc. Dyspnea, Edema, Lt Headedness, Other Gastrointestinal: No: Nausea, Vomiting, Abdominal Pain, Diarrhea, Constipation, Melena, Hematochezia, Other Genitourinary: No Dysuria, No Frequency, No Incontinence, No Hematuria, No Retention, No Other Musculoskeletal: No: other, neck pain, shoulder pain, arm pain, back pain, hand pain, leg pain, foot pain Skin: No: Rash, Lesions, Jaundice, Bruising, Other Neurological: Other (Dizziness); No: Weakness, Numbness, Incoordination, Change in speech, Confusion, Seizures Allergies: Coded Allergies: No Known Drug Allergy (Verified Allergy, Unknown, 05/24/20) Medications Current Medications Medications Dose Ordered Sig/Louie Route Start Time Stop Time Status Last Admin Dose Admin Tamsulosin HCl 0.4 mg QPM PO 04/17/24 18:00 Methylprednisolone Sodium Succinate 40 mg Q8HR IV 04/17/24 14:00 Famotidine 20 mg DAILY IV 04/18/24 10:00 Furosemide 20 mg DAILY IV 04/18/24 10:00 Carvedilol 6.25 mg Q12HR PO 04/17/24 22:00 Albuterol 2.5 mg Q4HPRN PRN NEB 04/17/24 12:30 Ipratropium [place] 0.5 mg Q4HPRN PRN NEB 04/17/24 12:30 Sodium Chloride 10 ml Q8HR IV 04/17/24 14:00 04/17/24 13:50 10 ML Acetaminophen/ Hydrocodone Bitart 1 tab Q4HP PRN PO 04/17/24 12:30 Ondansetron HCl 4 mg Q4HP PRN IV 04/17/24 12:30 Docusate Sodium 100 mg BIDPRN PRN PO 04/17/24 12:30 Acetaminophen 650 mg Q6HP PRN PO 04/17/24 12:30 04/17/24 14:08 650 MG Exam Vital Signs Vital Signs Date Time Temp Pulse Resp B/P (MAP) Pulse Ox O2 Delivery O2 Flow Rate FiO2 04/17/24 12:45 96 Room Air 04/17/24 12:45 0 21 04/17/24 12:45 112 22 130/62 04/17/24 09:39 97.6 General Appearance: Alert, Oriented X3, Cooperative, No acute distress HEENT: Atraumatic, PERRLA, EOMI, Mucous membr. moist/pink Respiratory: Normal air movement, Other (Diminished breath sounds) Cardiovascular: Regular rate, Normal S1, Normal S2, No murmurs Abdominal: Normal bowel sounds, Soft, No tenderness, No hepatospenomegaly, No masses Extremities: No clubbing, No cyanosis, No edema, Normal pulses, No tender ness/swelling Skin: No rashes, No breakdown, No significant lesion Neuro: Normal speech, Normal tone, Sensation intact, Cranial nerves 3-12 NL, Reflexes 2+, Other (Generalized weakness) Psych/Mental Status: Mental status NL, Mood NL Labs/Xrays Labs Test 04/17/24 10:55 04/17/24 10:16 Range/Units White Blood Count 7.8 4.4-10.8 10^3/uL Red Blood Count 4.21 L 4.5-5.90 10^6/uL Hemoglobin 14.4 13.5-17.5 g/dL Hematocrit 42.8 41.0-53.0 % Mean Corpuscular Volume 101.7 H 80.0-100.0 fL Mean Corpuscular Hemoglobin 34.2 H 28.0-32.0 pg Mean Corpuscular Hemoglobin Concent 33.7 32.0-36.0 g/dL Red Cell Distribution Width 14.6 H 11.8-14.3 % Platelet Count 63 L 140-450 10^3/uL Mean Platelet Volume 10.8 6.9-10.8 fL Neutrophils (%) (Auto) 80.6 H 37.0-80.0 % Lymphocytes (%) (Auto) 9.9 L 10.0-50.0 % Monocytes (%) (Auto) 8.4 0.0-12.0 % Eosinophils (%) (Auto) 0.4 0.0-7.0 % Basophils (%) (Auto) 0.7 0.0-2.0 % Neutrophils # (Auto) 6.3 1.6-8.6 10 ^3/uL Lymphocytes # (Auto) 0.8 0.4-5.4 10 ^3/uL Monocytes # (Auto) 0.7 0-1.3 10 ^3/uL Eosinophils # (Auto) 0 0-0.8 10 ^3/uL Basophils # (Auto) 0.1 0-0.2 10 ^3/uL Nucleated Red Blood Cells 0.2 % Sodium Level 138 136-145 mmol/L Potassium Level 4.6 3.5-5.1 mmol/L Chloride Level 103 98-107 mmol/L Carbon Dioxide Level 28 20-31 mmol/L Anion Gap 7 5-15 Blood Urea Nitrogen 26 H 9-23 mg/dL Creatinine 1.18 0.700-1.30 mg/dL Glomerular Filtration Rate Calc 60 >90 mL/min BUN/Creatinine Ratio 22.0 H 10.0-20.0 Serum Glucose 103 74-106 mg/dL Calcium Level 9.6 8.7-10.4 mg/dL Troponin I High Sensitivity 28 </=54 ng/L PATIENT: CORONA ZEPEDA ACCT: [id number] UNIT: [id number] : 1940 LOC: ER ROOM / BED: / AGE / SEX: 83 / M ADM STATUS: REG ER SERVICE 1006 ORDERING PHYSICIAN: ZULMA PATEL MD PROCEDURE(s): CXRP - CHEST PORTABLE REASON: sob ORDER NUMBER(s): [id number], ACCESSION NUMBER(s): [id number] CLINICAL INFORMATION: 83 years old, Male; shortness of breath. TECHNIQUE: AP portable chest radiographs were obtained. COMPARISON: XY CHEST PORTABLE on DOS: 03/13/24, XY CHEST PORTABLE on DOS: 03/11/24, XY CHEST PORTABLE on DOS: 09/19/23 FINDINGS: Lungs: Blunting of the left costophrenic angle suggesting small left pleural effusion with overlying atelectasis and consolidation, similar in appearance compared to the prior radiographs. Prominent interstitial opacities in the right lower lung are new more conspicuous compared to the prior exam. There is patchy irregular opacity in the lateral aspect of the right lung. Similar-appearing emphysematous changes. Cardiac: Unchanged [id number] cardiomegaly. Pulmonary vasculature: Unremarkable. Mediastinum/princess: Dense atherosclerotic calcification of the aortic arch. Bones: No acute osseous abnormality identified. Other: No other significant findings. IMPRESSION: 1. New or worsening interstitial opacities in the right lung base, may be infectious or inflammatory in nature in the appropriate clinical setting. 2. Irregular opacity in the lateral aspect of the right mid lung demonstrates slightly increased density compared to the prior radiographs. may be scarring. Irregular nodule not completely excluded. CT chest could be obtained to further characterize. 3. Small left pleural effusion with overlying atelectasis and consolidation, similar in appearance compared to the prior exam. 4. Additional findings as detailed above Assessment/Plan Assessment/Plan Acute on chronic systolic heart failure COPD with acute exacerbation Pneumonitis Thrombocytopenia Atrial fibrillation with rapid ventricular response Plan 1. Admit to telemetry unit 2. Breathing treatment 3. Pain control management 4. IV antibiotic management 5. Management of fluids and electrolytes 6. Consultation for pulmonology 7. Diagnostic test chest x-ray 8. DVT prophylaxis-on SCDs 9. Repeat labs CBC, CMP in a.m. 10. Home medication reviewed and reconciled 11. Continue with current medical management 12. Treatment plan discussed with patient and RN. Patient verbalized understanding. Plan discussed with: Patient, Other (RN) My Orders Orders - GREGORY RAMIREZ DNP Procedure Category Date Status Time *Consult CONS 04/17/24 Transmitted / 12:16 Tamsulosin PHA 04/17/24 In Process Hydrochloride (Flomax) 18:00 Methylprednisolone PHA 04/17/24 In Process Sod Succ (Solu Medrol 14:00 Famotidine Injection PHA 04/18/24 In Process (Pepcid Injection) 10:00 Furosemide Injection PHA 04/18/24 In Process (Lasix Injection) 10:00 Carvedilol Tablet PHA 04/17/24 In Process (Coreg Tablet) 22:00 B-Type Natriuretic LAB 04/17/24 In Process Peptide 12:16 Albuterol Medneb PHA 04/17/24 In Process (Ventolin Medneb) 12:30 Ipratropium Medneb PHA 04/17/24 In Process (Atrovent Medneb) 12:30 Allergies CHEPE 04/17/24 In Process 12:16 Code Status CODE 04/17/24 Transmitted 12:16 Sodium Chloride Lock PHA 04/17/24 In Process (Saline Lock Ns) 14:00 Oxygen Per Hour RT 04/17/24 Transmitted 12:16 Hydrocodone-Acet PHA 04/17/24 In Process 5/325mg Tab ([place] 12:30 Ondansetron Hcl PHA 04/17/24 In Process (Zofran) 12:30 Docusate Sodium PHA 04/17/24 In Process Capsule (Colace 12:30 Fall Risk Precautions CHEPE 04/17/[address] 12:16 Complete Blood Count LAB 04/18/24 Verified 04:00 Comprehensive LAB 04/18/24 Verified Metabolic Panel 04:00 Cardiac DIET 04/17/24 Transmitted Diet-2gna,Lofat,Lochol Lunch Condition: Serious CHEPE 04/17/24 In Process 12:16 Acetaminophen Tablet PHA 04/17/24 In Process (Tylenol Tablet) 12:30 Sequential CHEPE 04/17/24 In Process Compression Device Problem List: (1) Acute on chronic systolic heart failure (2) COPD with acute exacerbation (3) Pneumonitis (4) Thrombocytopenia (5) Generalized weakness Date of Service: Apr 17, 2024 Billing Provider: GREGORY RAMIREZ DNP Common Visit Codes: [id number] INP/OBS CARE (HIGH) GREGORY RAMIREZ DNP Apr 17, 2024 14:22
[2024-04-17] MEDS ORDERED: MORPHINE SULFATE INJ 2 MG/ml SYRG IV PRN (14:30)
[2024-04-17] MEDS ORDERED: NITROGLYCERIN 0.4 MG SL TAB SL PRN (14:30)
[2024-04-17] MEDS: levoFLOXacin 250MG 50 ML IV ONE (15:55)
[2024-04-17] MEDS: FUROSEMIDE 20 MG/2 ML VIAL IV ONE (16:06)
[2024-04-17] MEDS: TAMSULOSIN HYDROCHLORIDE 0.4 MG CAP PO SCH (17:54)
[2024-04-17 17:58] VITALS: O2SAT 97
[2024-04-17 19:20] VITALS: PULSE 139; O2SAT 97
[2024-04-17 19:34] LABS: Urine Bacteria None Seen /hpf (None Seen)
[2024-04-17 19:40] LABS: Urine Blood Negative /uL (Negative); Urine Clarity Clear (Clear); Urine Color Yellow (Yellow); Urine Hyaline Cast FEW /lpf (0 - 2); Urine Mucus FEW (None Seen); Urine Protein, UAD 1+ (Negative); Urine Specific Gravity 1.014 (1.001-1.035); Urine Squamous Epithelial Cell None Seen /hpf (<5); Urine Urobilinogen Normal (Negative); Urine WBC 1 /HPF (0-3)
[2024-04-17] MEDS: METOPROLOL TARTRATE 1MG/1ML-5ML VIAL IV ONE (20:00)
[2024-04-17] MEDS: AZITHROMYCIN 500MG/ 250ML 250 ML IV ONE (21:33)
[2024-04-17] MEDS: cefTRIAXone 1GM/50ML D5W 50 ML IV ONE (21:33)
[2024-04-17] MEDS: CARVEDILOL 3.125 MG TAB PO SCH (21:44)
--- NOTE | 2024-04-17 21:49 | DVHINCON2 ---
Date of service: Apr 17, 2024 Referring Physician Clyde Shah NP Reason for Consultation COPD exacerbation History of Present Illness An 83-year-old man with past medical history of COPD, AFib, congestive heart failure, arthritis, and PUD who presents to ED today with complaint of shortness of breath. Patient reports he has been experiencing shortness of breath for the past 4 days and dizziness, getting worse today that prompted this visit. ED workup shows WBC 7.6, platelets 63, sodium 138, potassium 4.6, BUN 26, creatinine 1.18, GFR 60, glucose 103, troponin 28, BNP 1034.07. Chest x-ray revealed new or worsening interstitial opacity in the right lung base, irregular opacity in the lateral aspect of the right mid lung, small left pleural effusion with overlying atelectasis and consolidations. Patient was admitted for further care and pulmonary consultation is requested for evaluation and management due to COPD exacerbation. Review of Systems: 14-point review of systems negative unless otherwise noted above. Past Medical History: COPD, AFib, congestive heart failure, arthritis, and PUD Past Surgical History: Hernia Repair, Tonsillectomy Medications: Reviewed. Allergies: No known drug allergies. Family History: Alcoholism Atrial fibrillation GERD Hypertension. Social History: Nonsmoker. No alcohol or illicit drug use. Family History: Alcoholism G8 FATHER FH: atrial fibrillation G8 MOTHER, Onset:60 years & older GERD G8 MOTHER, Onset:60 years & older Hypertension G8 MOTHER, Onset:50's - 60 Allergies: Coded Allergies: No Known Drug Allergy (Verified Allergy, Unknown, 05/24/20) Home Meds Active Scripts Oseltamivir Phosphate (Tamiflu) 75 Mg Cap, 75 MG PO BID for 4 Days, #8 CAP Prov:JANA ORNELAS LEAD CARGOMAN 03/14/24 Furosemide (Furosemide) 20 Mg Tab, 1 TAB PO DAILY for 90 Days, #90 TAB 1 Refill Prov:JEN GOODE 09/21/23 Epinephrine (Anaphylaxis) (Auvi-Q) 0.1 Mg/0.1 Ml Inj, 0.1 MG IJ O PRN for 1 Day, #1 INJ Prov:MARCELO TOWNSEND MD 09/09/23 Famotidine (PEPCID TABLET) 20 Mg Tb, 1 TAB PO BID for 4 Days, #8 TAB 5 Refills Prov:MARCELO TOWNSEND MD 09/09/23 Mupirocin Calcium (Topical) (MUPIROCIN) 2 % Cre, 2 % EX BID for 7 Days, #30 CRE Prov:RAY CORCORAN MD 09/05/23 Metoprolol Tartrate (Metoprolol Tartrate) 25 Mg Tab, 1 TAB PO BID, #60 TAB 5 Refills Prov:RAY CORCORAN MD 08/22/23 Temazepam (Restoril) 15 Mg Cp, 1 CAP PO QPM, #30 CAP 0 Refills Prov:HERBIE LEI MD 07/31/22 Reported Medications Zolpidem Tartrate (Ambien) 10 Mg Tab, PO QPM, #30 TAB 5 Refills 09/20/23 Tamsulosin Hcl (Flomax) 0.4 Mg Cap, 0.4 MG PO DAILY, CAP 09/04/23 Hydroxychloroquine Sulfate (Hydroxychloroquine Sulfat) 200 Mg Tab, 200 MG PO BID for 30 Days, MG 09/04/23 Current Medications Current Medications Medications (Trade) Dose Ordered Sig/Louie Route PRN Reason Start Time Stop Time Status Last Admin Tamsulosin HCl (Flomax) 0.4 mg QPM PO 04/17/24 18:00 04/17/24 17:54 Methylprednisolone Sodium Succinate (Solu Medrol) 40 mg Q8HR IV 04/17/24 14:00 04/17/24 21:43 Famotidine (Pepcid Injection) 20 mg DAILY IV 04/18/24 10:00 Furosemide (Lasix Injection) 20 mg DAILY IV 04/18/24 10:00 04/17/24 21:09 DC Carvedilol (Coreg Tablet) 6.25 mg Q12HR PO 04/17/24 22:00 04/17/24 21:44 Albuterol (Ventolin Medneb) 2.5 mg Q4HPRN PRN NEB SHORTNESS OF BREATH 04/17/24 12:30 Ipratropium [place] (Atrovent Medneb) 0.5 mg Q4HPRN PRN NEB SHORTNESS OF BREATH 04/17/24 12:30 Sodium Chloride (Saline Lock Ns) 10 ml Q8HR IV 04/17/24 14:00 04/17/24 21:40 Acetaminophen/ Hydrocodone Bitart ([place] 5/325MG Tab) 1 tab Q4HP PRN PO MODERATE PAIN (4-6 PAIN SCALE) 04/17/24 12:30 Ondansetron HCl (Zofran) 4 mg Q4HP PRN IV NAUSEA / VOMITING 04/17/24 12:30 Docusate Sodium (Colace Capsule) 100 mg BIDPRN PRN PO FOR CONSTIPATION 04/17/24 12:30 Acetaminophen (Tylenol Tablet) 650 mg Q6HP PRN PO PAIN SCALE 1-3 OR TEMP>100.4 04/17/24 12:30 04/17/24 14:08 Nitroglycerin (Ntrostat Sublingual) 0.4 mg Q5MINP PRN SL FOR CHEST PAIN 04/17/24 14:30 Morphine Sulfate 2 mg Q30M PRN IV FOR CHEST PAIN 04/17/24 14:30 Furosemide (Lasix Injection) 20 mg DAILY IV 04/18/24 10:00 Levofloxacin/ Dextrose 100 ml @ 100 mls/hr DAILY IV 04/18/24 10:00 04/17/24 20:34 DC Ceftriaxone Sodium 50 ml @ 100 mls/hr DAILY@09 IV 04/18/24 09:00 Azithromycin 250 ml @ 125 mls/hr DAILY IV 04/18/24 10:00 Vital Signs Vital Signs Date Time Temp Pulse Resp B/P (MAP) Pulse Ox O2 Delivery O2 Flow Rate FiO2 04/17/24 21:44 95 135/66 04/17/24 20:00 23 94 04/17/24 19:20 Room Air* 0 21 04/17/24 14:00 97.3 97.3 Physical Exam Gen.: Patient lying in bed in no apparent distress. Breathing on room air. Head: Normocephalic, atraumatic. Eyes: EOMI/PERRLA. Ears: Normal hearing. Normal anatomy. Neck/trachea: Trachea midline, supple. Nose: Normal external anatomy. Mouth: Moist mucous membranes. Chest: Decreased air entry bilaterally. No wheezing or rhonchi. Cardiovascular: Positive S1, positive S2. Regular rate and rhythm. Abdomen: Positive bowel sounds in all 4 quadrants. Soft, non-tender, non- distended. : Deferred. Rectal: Deferred. Skin: Warm, dry. Intact. Extremities: 2+ radial pulses bilaterally. No lower extremity edema. Neuro: Awake, alert, oriented x3. No gross motor or sensory deficits. Cranial nerves II through XII intact. Gait not assessed. Labs/Diagnostic Data Labs Test 04/17/24 19:29 04/17/24 10:55 04/17/24 10:16 Range/Units Urine Color Yellow Yellow Urine Clarity Clear Clear Urine pH 5.0 5.0-9.0 Urine Specific [place] 1.014 1.001-1.035 Urine Protein 1+ H Negative Urine Ketones Negative Negative Urine Blood Negative Negative /uL Urine Nitrite Negative Negative Urine Bilirubin Negative Negative Urine Urobilinogen Normal Negative mg/dL Urine Leukocyte Esterase Negative Negative /uL Urine RBC <1 0 - 3 /hpf Urine Microscopic WBC 1 0-3 /HPF Urine Squamous Epithelial Cells None seen <5 /hpf Urine Calcium Oxalate Crystals Few None Seen Urine Bacteria None seen None Seen /hpf Urine Hyaline Casts Few 0 - 2 /lpf Urine Mucus Few None Seen Urine Glucose Normal Normal mg/dL B-Type Natriuretic Peptide 1034.07 0-100 pg/mL White Blood Count 7.8 4.4-10.8 10^3/uL Red Blood Count 4.21 L 4.5-5.90 10^6/uL Hemoglobin 14.4 13.5-17.5 g/dL Hematocrit 42.8 41.0-53.0 % Mean Corpuscular Volume 101.7 H 80.0-100.0 fL Mean Corpuscular Hemoglobin 34.2 H 28.0-32.0 pg Mean Corpuscular Hemoglobin Concent 33.7 32.0-36.0 g/dL Red Cell Distribution Width 14.6 H 11.8-14.3 % Platelet Count 63 L 140-450 10^3/uL Mean Platelet Volume 10.8 6.9-10.8 fL Neutrophils (%) (Auto) 80.6 H 37.0-80.0 % Lymphocytes (%) (Auto) 9.9 L 10.0-50.0 % Monocytes (%) (Auto) 8.4 0.0-12.0 % Eosinophils (%) (Auto) 0.4 0.0-7.0 % Basophils (%) (Auto) 0.7 0.0-2.0 % Neutrophils # (Auto) 6.3 1.6-8.6 10 ^3/uL Lymphocytes # (Auto) 0.8 0.4-5.4 10 ^3/uL Monocytes # (Auto) 0.7 0-1.3 10 ^3/uL Eosinophils # (Auto) 0 0-0.8 10 ^3/uL Basophils # (Auto) 0.1 0-0.2 10 ^3/uL Nucleated Red Blood Cells 0.2 % Sodium Level 138 136-145 mmol/L Potassium Level 4.6 3.5-5.1 mmol/L Chloride Level 103 98-107 mmol/L Carbon Dioxide Level 28 20-31 mmol/L Anion Gap 7 5-15 Blood Urea Nitrogen 26 H 9-23 mg/dL Creatinine 1.18 0.700-1.30 mg/dL Glomerular Filtration Rate Calc 60 >90 mL/min BUN/Creatinine Ratio 22.0 H 10.0-20.0 Serum Glucose 103 74-106 mg/dL Calcium Level 9.6 8.7-10.4 mg/dL Troponin I High Sensitivity 28 </=54 ng/L Assessment Impression: Acute exacerbation of COPD Acute on chronic systolic congestive heart failure Pneumonia, likely gram negative Atrial fibrillation with rapid ventricular response Atelectasis Pulmonary cachexia, 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 Continue bronchodilators. Continue IV antibiotics Continue IV steroids Incentive spirometry Diurese to euvolemia Fluid restriction Monitor renal function. Monitor electrolytes. Supplement as necessary. Monitor ins and outs. DVT prophylaxis - SCDs. Prognosis: Poor given patient's multiple co-morbidities. Rest of plan per hospitalist and other consultants. Thank you, ZOILA Shah, for allowing me to participate in this patient's care. Further recommendations will depend on the patient's clinical course. Please do not hesitate to contact me if you have any questions or concerns. This medical document was created using an electronic medical record system with Music Messenger (MM) dictation system. Although these documentations are being carefully reviewed, there may still be some phonetic and typographical changes. The errors are purely typographical, due to imperfection on the software program, and do not reflect any compromise in the patient's medical care. Plan discussed with: Patient, Other (RN/ZOILA Shah/) SERA OROZCO MD Apr 17, 2024 21:49
[2024-04-18] VITALS (9 sets, daily range): BP systolic 119–139; BP diastolic 67–77; PULSE 70–83; RESP 16–19; TEMP 97–97.5; O2SAT 94–98
[2024-04-18] MEDS: IPRATROPIUM BROM 0.5 MG/2.5ML INH SOL NEB PRN (04:46)
[2024-04-18] MEDS: ALBUTEROL SULF 2.5 MG/0.5ML(0.5%) NEB SOLN NEB PRN (04:46)
[2024-04-18] MEDS: guaiFENesin-DM 100/10mg/5ml SYR PO ONE (05:11)
[2024-04-18 05:31] LABS: Basophils # (auto) 0 10 ^3/uL (0-0.2); Basophils % (auto) 0.1 % (0.0-2.0); Eosinophils # (auto) 0 10 ^3/uL (0-0.8); Lymphocytes # (auto) 0.3 10 ^3/uL (0.4-5.4); Lymphocytes % (auto) 4.7 % (10.0-50.0); Monocytes # (auto) 0.2 10 ^3/uL (0-1.3); Neutrophils # (auto) 5.7 10 ^3/uL (1.6-8.6); Neutrophils % (auto) 92.2 % (37.0-80.0); Red Blood Cells 4.14 10^6/uL (4.5-5.90)
[2024-04-18 05:33] LABS: Hematocrit 42.3 % (41.0-53.0); Hemoglobin 14.3 g/dL (13.5-17.5); Mean Corpuscular Hemoglobin 34.6 pg (28.0-32.0); Mean Corpuscular Hgb Conc. 33.9 g/dL (32.0-36.0); Mean Corpuscular Volume 102.3 fL (80.0-100.0); Nucleated Red Blood Cells % 0.1 %; Platelet Count (auto) 61 10^3/uL (140-450); Red Cell Distribution Width 14.4 % (11.8-14.3); White Blood Cell 6.2 10^3/uL (4.4-10.8)
[2024-04-18 05:48] LABS: Alanine Aminotransferase 20 U/L (7-40); Anion Gap 9 (5-15); BUN/Creatinine Ratio 22.8 (10.0-20.0); Calcium 9.8 mg/dL (8.7-10.4); Carbon Dioxide 26 mmol/L (20-31); Chloride 102 mmol/L (98-107); Potassium 4.8 mmol/L (3.5-5.1); Sodium 137 mmol/L (136-145)
[2024-04-18 05:49] LABS: Albumin 3.9 g/dL (3.2-4.8); Aspartate Aminotransferase 34 U/L (13-40); Bilirubin, Total 1.1 mg/dL (0.2-1.0); Total Protein 6.7 g/dL (5.7-8.2)
[2024-04-18 05:51] LABS: Alkaline Phosphatase 217 U/L (46-116); Blood Urea Nitrogen 29 mg/dL (9-23); Glucose 145 mg/dL (74-106)
[2024-04-18] MEDS: cefTRIAXone 1GM/50ML D5W 50 ML IV SCH (09:15)
[2024-04-18] MEDS ORDERED: FUROSEMIDE 20 MG/2 ML VIAL IV SCH (10:00)
[2024-04-18] MEDS ORDERED: levoFLOXacin 500MG 100 ML IV SCH (10:00)
[2024-04-18] MEDS: AZITHROMYCIN 500MG/ 250ML 250 ML IV SCH (12:39)
[2024-04-18] MEDS: FAMOTIDINE (10MG/ML) 2ML VL IV SCH (12:39)
[2024-04-18] MEDS: FUROSEMIDE 20 MG/2 ML VIAL IV SCH (12:40)
--- NOTE | 2024-04-18 16:21 | DVHPN2 ---
Subjective 04/18 patient is feeling improved, but continues to have shortness of breath and not yet back at baseline. We will continue treating with antibiotics and Lasix. Reviewed: H&P Changes from previous H/P or p: No Changes General: Per HPI Objective Vitals Vital Signs Date Time Temp Pulse Resp B/P (MAP) Pulse Ox O2 Delivery O2 Flow Rate FiO2 04/18/24 12:40 122/71 04/18/24 10:29 95 Room Air 04/18/24 10:29 0 21 04/18/24 10:16 97.0 73 19 97.0 Intake/Output Intake and Output 04/18/24 07:00 Intake Total 300 ml Balance 300 ml Intake IV Total 300 ml Exam GEN: Healthy appearing, well-developed, NAD. HEENT: NC/AT; MMM. CV: RRR, no m/r/g. LUNGS: Rales lower lobes bilaterally. ABD: Soft, NT/ND, NBS, no masses or organomegaly. EXT: skin Warm, well perfused. no rashes. No clubbing, cyanosis, or edema. NEURO: Ambulating with no limitations. No focal deficits. Medications Current Medications Medications Dose Ordered Sig/Louie Route Start Time Stop Time Status Last Admin Dose Admin Tamsulosin HCl 0.4 mg QPM PO 04/17/24 18:00 04/17/24 17:54 0.4 MG Methylprednisolone Sodium Succinate 40 mg Q8HR IV 04/17/24 14:00 04/18/24 15:27 40 MG Famotidine 20 mg DAILY IV 04/18/24 10:00 04/18/24 12:39 20 MG Carvedilol 6.25 mg Q12HR PO 04/17/24 22:00 04/17/24 21:44 6.25 MG Albuterol 2.5 mg Q4HPRN PRN NEB 04/17/24 12:30 04/18/24 04:46 2.5 MG Ipratropium [place] 0.5 mg Q4HPRN PRN NEB 04/17/24 12:30 04/18/24 04:46 0.5 MG Sodium Chloride 10 ml Q8HR IV 04/17/24 14:00 04/18/24 15:27 10 ML Acetaminophen/ Hydrocodone Bitart 1 tab Q4HP PRN PO 04/17/24 12:30 Ondansetron HCl 4 mg Q4HP PRN IV 04/17/24 12:30 Docusate Sodium 100 mg BIDPRN PRN PO 04/17/24 12:30 Acetaminophen 650 mg Q6HP PRN PO 04/17/24 12:30 04/18/24 15:27 650 MG Nitroglycerin 0.4 mg Q5MINP PRN SL 04/17/24 14:30 Morphine Sulfate 2 mg Q30M PRN IV 04/17/24 14:30 Furosemide 20 mg DAILY IV 04/18/24 10:00 04/18/24 12:40 20 MG Ceftriaxone Sodium 50 ml @ 100 mls/hr DAILY@09 IV 04/18/24 09:00 04/18/24 09:15 100 MLS/HR Azithromycin 250 ml @ 125 mls/hr DAILY IV 04/18/24 10:00 04/18/24 12:39 125 MLS/HR Laboratory Results Laboratory Tests 04/18/24 05:06 Chemistry Test 04/18/24 05:06 Albumin 3.9 g/dL (3.2-4.8) Calcium Level 9.8 mg/dL (8.7-10.4) Total Protein 6.7 g/dL (5.7-8.2) LFT Test 04/18/24 05:06 Alanine Aminotransferase (ALT) 20 U/L (7-40) Alkaline Phosphatase 217 U/L (46-116) H Aspartate Amino Transferase (AST) 34 U/L (13-40) Total Bilirubin 1.1 mg/dL (0.2-1.0) H Urinalysis Test 04/17/24 19:29 Urine Color Yellow (Yellow) Urine Clarity Clear (Clear) Urine pH 5.0 (5.0-9.0) Urine Specific [place] 1.014 (1.001-1.035) Urine Protein 1+ (Negative) H Urine Ketones Negative (Negative) Urine Blood Negative /uL (Negative) Urine Nitrite Negative (Negative) Urine Bilirubin Negative (Negative) Urine Urobilinogen Normal mg/dL (Negative) Urine Leukocyte Esterase Negative /uL (Negative) Urine RBC <1 /hpf (0 - 3) Urine Microscopic WBC 1 /HPF (0-3) Urine Squamous Epithelial Cells None seen /hpf (<5) Urine Calcium Oxalate Crystals Few (None Seen) Urine Bacteria None seen /hpf (None Seen) Urine Hyaline Casts Few /lpf (0 - 2) Urine Mucus Few (None Seen) Urine Glucose Normal mg/dL (Normal) Labs and/or images reviewed: Labs reviewed by me, Image(s) reviewed by me Assessment/Plan Assessment/Plan 04/18 patient is feeling improved, but continues to have shortness of breath and not yet back at baseline. We will continue treating with antibiotics and Lasix. Acute on chronic systolic heart failure exacerbation Acute COPD exacerbation with pneumonitis Pneumonia Gram-negative Gram-positive/atypical likely Macrocytosis Stable thrombocytopenia - on exam patient continues to have rales in lower lungs bilaterally. - labs show neutrophilia percent 80.6 high. BNP elevated 1034, T bili 1.1 high, ALP 217 high - CXR with concern for pulmonary vascular congestion versus pneumonia. -ceftriaxone azithromycin IV -continue diuresis with Lasix 20 IV daily -Solu-Medrol 40 daily IV. 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
--- NOTE | 2024-04-18 20:46 | DVHPN2 ---
Progress Note - Dictate Date Seen: Apr 18, 2024 Medical Necessity Reason Pt with a Central, PICC or Fol: No Subjective Patient seen and examined at bedside. Breathing comfortably on room air. Overnight events reviewed. vital signs Vital Sign Date Time Temp Pulse Resp B/P (MAP) Pulse Ox O2 Delivery O2 Flow Rate FiO2 04/18/24 12:40 122/71 04/18/24 10:29 95 Room Air 04/18/24 10:29 0 21 04/18/24 10:16 97.0 73 19 97.0 Total Intake and Output 04/17/24 04/17/24 04/18/24 15:00 23:00 07:00 Intake Total 175 ml 125 ml Balance 175 ml 125 ml medications Current Medications Medications Dose Ordered Sig/Louie Route Start Time Stop Time Status Last Admin Dose Admin Tamsulosin HCl 0.4 mg QPM PO 04/17/24 18:00 04/18/24 18:00 0.4 MG Methylprednisolone Sodium Succinate 40 mg Q8HR IV 04/17/24 14:00 04/18/24 15:27 40 MG Famotidine 20 mg DAILY IV 04/18/24 10:00 04/18/24 12:39 20 MG Carvedilol 6.25 mg Q12HR PO 04/17/24 22:00 04/17/24 21:44 6.25 MG Albuterol 2.5 mg Q4HPRN PRN NEB 04/17/24 12:30 04/18/24 04:46 2.5 MG Ipratropium [place] 0.5 mg Q4HPRN PRN NEB 04/17/24 12:30 04/18/24 04:46 0.5 MG Sodium Chloride 10 ml Q8HR IV 04/17/24 14:00 04/18/24 15:27 10 ML Acetaminophen/ Hydrocodone Bitart 1 tab Q4HP PRN PO 04/17/24 12:30 Ondansetron HCl 4 mg Q4HP PRN IV 04/17/24 12:30 Docusate Sodium 100 mg BIDPRN PRN PO 04/17/24 12:30 Acetaminophen 650 mg Q6HP PRN PO 04/17/24 12:30 04/18/24 15:27 650 MG Nitroglycerin 0.4 mg Q5MINP PRN SL 04/17/24 14:30 Morphine Sulfate 2 mg Q30M PRN IV 04/17/24 14:30 Furosemide 20 mg DAILY IV 04/18/24 10:00 04/18/24 12:40 20 MG Ceftriaxone Sodium 50 ml @ 100 mls/hr DAILY@09 IV 04/18/24 09:00 04/18/24 09:15 100 MLS/HR Azithromycin 250 ml @ 125 mls/hr DAILY IV 04/18/24 10:00 04/18/24 12:39 125 MLS/HR objective Gen.: Patient lying in bed in no apparent distress. Breathing on room air. Head: Normocephalic, atraumatic. Eyes: EOMI/PERRLA. Ears: Normal hearing. Normal anatomy. Neck/trachea: Trachea midline, supple. Nose: Normal external anatomy. Mouth: Moist mucous membranes. Chest: Decreased air entry bilaterally. Wheezing, improving. No rhonchi. Cardiovascular: Positive S1, positive S2. Regular rate and rhythm. Abdomen: Positive bowel sounds in all 4 quadrants. Soft, non-tender, non- distended. : Deferred. Rectal: Deferred. Skin: Warm, dry. Intact. Extremities: 2+ radial pulses bilaterally. No lower extremity edema. Neuro: Awake, alert, oriented x3. No gross motor or sensory deficits. Cranial nerves II through XII intact. Gait not assessed. 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 Supplemental oxygen PRN No acute events Improving wheezing. Continue bronchodilators Continue steroids Continue antibiotics Incentive spirometry GI/DVT prophylaxis Labs and imaging reviewed. Rest of plan as noted below. Plan: Supplemental oxygen PRN Titrate to keep O2 sats above 92%. Continue bronchodilators. Continue IV antibiotics Continue IV steroids Incentive spirometry Diurese to euvolemia Fluid restriction Monitor renal function. Monitor electrolytes. Supplement as necessary. Monitor ins and outs. GI prophylaxis - Pepcid DVT prophylaxis - SCDs. Prognosis: Poor given patient's multiple co-morbidities. Rest of plan per hospitalist and other consultants. Thank you, ZOILA Shah, for allowing me to participate in this patient's care. Further recommendations will depend on the patient's clinical course. Please do not hesitate to contact me if you have any questions or concerns. This medical document was created using an electronic medical record system with [employer] dictation system. Although these documentations are being carefully reviewed, there may still be some phonetic and typographical changes. The errors are purely typographical, due to imperfection on the software program, and do not reflect any compromise in the patient's medical care. Plan discussed with: Patient, Other (KRISTINA Strickland) SERA OROZCO MD Apr 18, 2024 20:46
[2024-04-19] VITALS (12 sets, daily range): BP systolic 123–136; BP diastolic 64–86; PULSE 78–93; RESP 16–18; TEMP 96.1–98.4; O2SAT 95–98
[2024-04-19 10:56] LABS: Hematocrit 43.2 % (41.0-53.0); Hemoglobin 14.3 g/dL (13.5-17.5); Mean Corpuscular Hemoglobin 34.3 pg (28.0-32.0); Mean Corpuscular Hgb Conc. 33.2 g/dL (32.0-36.0); Mean Corpuscular Volume 103.3 fL (80.0-100.0); Platelet Count (auto) 88 10^3/uL (140-450); Red Blood Cells 4.18 10^6/uL (4.5-5.90); Red Cell Distribution Width 14.8 % (11.8-14.3); White Blood Cell 12.7 10^3/uL (4.4-10.8)
[2024-04-19 11:09] LABS: Band Neutrophils % (manual) 0; Basophils % (manual) 0 (0.0-2.0); Blast Cells 0; Eosinophils % (manual) 0 (0-7); Metamyelocytes % 0; Myelocytes % 0; Promyelocytes % 0; Reactive Lymphocytes 0
[2024-04-19 11:23] LABS: Alanine Aminotransferase 22 U/L (7-40); Albumin 4.1 g/dL (3.2-4.8); Anion Gap 8 (5-15); Aspartate Aminotransferase 32 U/L (13-40); BUN/Creatinine Ratio 24.4 (10.0-20.0); Bilirubin, Total 0.8 mg/dL (0.2-1.0); Calcium 9.6 mg/dL (8.7-10.4); Carbon Dioxide 28 mmol/L (20-31); Chloride 99 mmol/L (98-107); Potassium 4.4 mmol/L (3.5-5.1); Total Protein 6.6 g/dL (5.7-8.2)
[2024-04-19 11:25] LABS: Alkaline Phosphatase 207 U/L (46-116); Blood Urea Nitrogen 31 mg/dL (9-23); Glucose 191 mg/dL (74-106); Sodium 135 mmol/L (136-145)
[2024-04-19] MEDS: FUROSEMIDE 20 MG/2 ML VIAL IV ONE (11:57)
[2024-04-19] MEDS: SPIRONOLACTONE 25 MG TAB PO ONE (11:58)
[2024-04-19 12:14] LABS: Lymphocytes % (manual) 1 (10.0-50.0); Macrocytosis Slight; Monocytes % (manual) 3 (0-12); Platelet Estimate Decreased; Smudge Cells 1 /100 WBC
--- NOTE | 2024-04-19 16:19 | DVHPN2 ---
Subjective 04/19 update 04/18 patient is feeling improved, but continues to have shortness of breath and not yet back at baseline. We will continue treating with antibiotics and Lasix. 04/19 --patient is feeling improved, ambulating to the bathroom. No pedal edema., continues to have rales up to mid lungs. Noted to have FF in February 2024 echo. He follows up with study manager in [facility], [employer] Brian. Attempt made to contact provider to figure out why patient is not on GDM T[facility] and then phone cut off. We will attempt to start low dose of GDM T and discharge to primary study manager. Reviewed: H&P Changes from previous H/P or p: No Changes General: Per HPI Objective Vitals Vital Signs Date Time Temp Pulse Resp B/P (MAP) Pulse Ox O2 Delivery O2 Flow Rate FiO2 04/19/24 13:02 87 04/19/24 13:00 98.1 18 130/65 (86) 96 98.1 04/19/24 08:51 Room Air* 0 21 Intake/Output Intake and Output 04/19/24 07:00 Intake Total 1750 ml Output Total 200 ml Balance 1550 ml Intake Oral 1450 ml IV Total 300 ml Output Urine Total 200 ml # Voids 2 # Bowel Movements 1 Exam GEN: Healthy appearing, well-developed, NAD. HEENT: NC/AT; MMM. CV: RRR, no m/r/g. LUNGS: Rales lower lobes bilaterally. ABD: Soft, NT/ND, NBS, no masses or organomegaly. EXT: skin Warm, well perfused. no rashes. No clubbing, cyanosis, or edema. NEURO: Ambulating with no limitations. No focal deficits. Medications Current Medications Medications Dose Ordered Sig/Louie Route Start Time Stop Time Status Last Admin Dose Admin Tamsulosin HCl 0.4 mg QPM PO 04/17/24 18:00 04/18/24 18:00 0.4 MG Famotidine 20 mg DAILY IV 04/18/24 10:00 04/19/24 09:23 20 MG Albuterol 2.5 mg Q4HPRN PRN NEB 04/17/24 12:30 04/18/24 04:46 2.5 MG Ipratropium [place] 0.5 mg Q4HPRN PRN NEB 04/17/24 12:30 04/18/24 04:46 0.5 MG Sodium Chloride 10 ml Q8HR IV 04/17/24 14:00 04/19/24 13:53 10 ML Acetaminophen/ Hydrocodone Bitart 1 tab Q4HP PRN PO 04/17/24 12:30 Ondansetron HCl 4 mg Q4HP PRN IV 04/17/24 12:30 Docusate Sodium 100 mg BIDPRN PRN PO 04/17/24 12:30 Acetaminophen 650 mg Q6HP PRN PO 04/17/24 12:30 04/19/24 14:36 650 MG Nitroglycerin 0.4 mg Q5MINP PRN SL 04/17/24 14:30 Morphine Sulfate 2 mg Q30M PRN IV 04/17/24 14:30 Furosemide 20 mg DAILY IV 04/18/24 10:00 04/19/24 09:23 20 MG Ceftriaxone Sodium 50 ml @ 100 mls/hr DAILY@09 IV 04/18/24 09:00 04/19/24 09:15 100 MLS/HR Azithromycin 250 ml @ 125 mls/hr DAILY IV 04/18/24 10:00 04/19/24 09:25 125 MLS/HR Spironolactone 12.5 mg DAILY PO 04/20/24 10:00 Metoprolol Succinate 12.5 mg DAILY PO 04/20/24 10:00 Empaglifozin 10 mg DAILY PO 04/19/24 15:30 Laboratory Results Laboratory Tests 04/19/24 10:17 Chemistry Test 04/19/24 10:17 Albumin 4.1 g/dL (3.2-4.8) Calcium Level 9.6 mg/dL (8.7-10.4) Total Protein 6.6 g/dL (5.7-8.2) LFT Test 04/19/24 10:17 Alanine Aminotransferase (ALT) 22 U/L (7-40) Alkaline Phosphatase 207 U/L (46-116) H Aspartate Amino Transferase (AST) 32 U/L (13-40) Total Bilirubin 0.8 mg/dL (0.2-1.0) Urinalysis Test 04/17/24 19:29 Urine Color Yellow (Yellow) Urine Clarity Clear (Clear) Urine pH 5.0 (5.0-9.0) Urine Specific [place] 1.014 (1.001-1.035) Urine Protein 1+ (Negative) H Urine Ketones Negative (Negative) Urine Blood Negative /uL (Negative) Urine Nitrite Negative (Negative) Urine Bilirubin Negative (Negative) Urine Urobilinogen Normal mg/dL (Negative) Urine Leukocyte Esterase Negative /uL (Negative) Urine RBC <1 /hpf (0 - 3) Urine Microscopic WBC 1 /HPF (0-3) Urine Squamous Epithelial Cells None seen /hpf (<5) Urine Calcium Oxalate Crystals Few (None Seen) Urine Bacteria None seen /hpf (None Seen) Urine Hyaline Casts Few /lpf (0 - 2) Urine Mucus Few (None Seen) Urine Glucose Normal mg/dL (Normal) Labs and/or images reviewed: Labs reviewed by me, Image(s) reviewed by me Assessment/Plan Assessment/Plan 04/19 --patient is feeling improved, ambulating to the bathroom. No pedal edema., continues to have rales up to mid lungs. Noted to have FF in February 2024 echo. He follows up with study manager in [facility], [employer] Brian. Attempt made to contact provider to figure out why patient is not on GDM T[facility] and then phone cut off. We will attempt to start low dose of GDM T and discharge to primary study manager. Acute on chronic systolic heart failure exacerbation , HFrEF exacerbation Acute COPD exacerbation with pneumonitis Pneumonia Gram-negative Gram-positive/atypical likely Macrocytosis Stable thrombocytopenia - on exam patient continues to have rales in lower lungs bilaterally. - labs show neutrophilia percent 80.6 high. BNP elevated 1034, T bili 1.1 high, ALP 217 high - CXR with concern for pulmonary vascular congestion versus pneumonia. - ceftriaxone azithromycin IV - continue diuresis with Lasix 20 IV b.i.d. and - Solu-Medrol 40 daily IV. - GDM T start metoprolol (Stops Coreg), Jardiance, Aldactone,. 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 AFib Osteoarthritis Peptic ulcer disease Diet cardiac DVT prophylaxis Lovenox GI prophylaxis tolerating diet Med surge Full code Plan discussed with: Patient My Orders Orders - ZEENAT PRATT MD Procedure Category Date Status Time Spironolactone PHA 04/20/24 In Process (Aldactone) 10:00 Metoprolol Xl PHA 04/20/24 In Process Succinate (Toprol Xl) 10:00 * Controlled Atmospheric [employer] [place] CONS 04/19/24 Transmitted Consult Empagliflozin PHA 04/19/24 In Process (Jardiance) 15:30 Date of Service: Apr 19, 2024 Billing Provider: ZEENAT PRATT MD Common Visit Codes: [id number] INP/OBS CARE(HIGH) ZEENAT PRATT MD Apr 19, 2024 16:19
[2024-04-19] MEDS: EMPAGLIFLOZIN 10 MG TAB PO SCH (16:57)
[2024-04-19] MEDS ORDERED: METOPROLOL SUCCINATE XL 50 MG TAB PO ONE (20:00)
[2024-04-19] MEDS: FUROSEMIDE 20 MG/2 ML VIAL IV SCH (21:18)
--- NOTE | 2024-04-19 23:28 | DVHPN2 ---
Progress Note - Dictate Date Seen: Apr 19, 2024 Medical Necessity Reason Pt with a Central, PICC or Fol: No Subjective Patient seen and examined at bedside. Breathing comfortably on room air. Overnight events reviewed. vital signs Vital Sign Date Time Temp Pulse Resp B/P (MAP) Pulse Ox O2 Delivery O2 Flow Rate FiO2 04/19/24 21:42 96 Room Air 04/19/24 21:42 0 21 04/19/24 21:18 136/68 04/19/24 21:00 97.8 89 17 97.8 Total Intake and Output 04/18/24 04/18/24 04/19/24 15:00 23:00 07:00 Intake Total 300 ml 750 ml 700 ml Output Total 200 ml Balance 300 ml 750 ml 500 ml medications Current Medications Medications Dose Ordered Sig/Louie Route Start Time Stop Time Status Last Admin Dose Admin Tamsulosin HCl 0.4 mg QPM PO 04/17/24 18:00 04/19/24 16:59 0.4 MG Famotidine 20 mg DAILY IV 04/18/24 10:00 04/19/24 09:23 20 MG Albuterol 2.5 mg Q4HPRN PRN NEB 04/17/24 12:30 04/18/24 04:46 2.5 MG Ipratropium [place] 0.5 mg Q4HPRN PRN NEB 04/17/24 12:30 04/18/24 04:46 0.5 MG Sodium Chloride 10 ml Q8HR IV 04/17/24 14:00 04/19/24 21:18 10 ML Acetaminophen/ Hydrocodone Bitart 1 tab Q4HP PRN PO 04/17/24 12:30 Ondansetron HCl 4 mg Q4HP PRN IV 04/17/24 12:30 Docusate Sodium 100 mg BIDPRN PRN PO 04/17/24 12:30 Acetaminophen 650 mg Q6HP PRN PO 04/17/24 12:30 04/19/24 21:18 650 MG Nitroglycerin 0.4 mg Q5MINP PRN SL 04/17/24 14:30 Morphine Sulfate 2 mg Q30M PRN IV 04/17/24 14:30 Ceftriaxone Sodium 50 ml @ 100 mls/hr DAILY@09 IV 04/18/24 09:00 04/19/24 09:15 100 MLS/HR Azithromycin 250 ml @ 125 mls/hr DAILY IV 04/18/24 10:00 04/19/24 09:25 125 MLS/HR Spironolactone 12.5 mg DAILY PO 04/20/24 10:00 Empaglifozin 10 mg DAILY PO 04/19/24 15:30 04/19/24 16:57 10 MG Furosemide 20 mg BID IV 04/19/24 22:00 04/19/24 21:18 20 MG Metoprolol Succinate 25 mg DAILY PO 04/20/24 10:00 objective Gen.: Patient lying in bed in no apparent distress. Breathing on room air. Head: Normocephalic, atraumatic. Eyes: EOMI/PERRLA. Ears: Normal hearing. Normal anatomy. Neck/trachea: Trachea midline, supple. Nose: Normal external anatomy. Mouth: Moist mucous membranes. Chest: Decreased air entry bilaterally. Wheezing, improving. No rhonchi. Cardiovascular: Positive S1, positive S2. Regular rate and rhythm. Abdomen: Positive bowel sounds in all 4 quadrants. Soft, non-tender, non- distended. : Deferred. Rectal: Deferred. Skin: Warm, dry. Intact. Extremities: 2+ radial pulses bilaterally. No lower extremity edema. Neuro: Awake, alert, oriented x3. No gross motor or sensory deficits. Cranial nerves II through XII intact. Gait not assessed. 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 Supplemental oxygen PRN No acute events Improving wheezing. Continue bronchodilators Continue antibiotics Incentive spirometry Discontinue steroids- WBC 12.7, likely reactive Diurese as tolerated w/ Lasix BID/spironolactone Monitor renal function. Monitor electrolytes. Supplement as necessary. Obtain cardiac records from Dr. Brian RIOS, Cardiology GI/DVT prophylaxis Labs and imaging reviewed. Rest of plan as noted below. Plan: Supplemental oxygen PRN Titrate to keep O2 sats above 92%. Continue bronchodilators. Continue IV antibiotics Discontinue steroids Incentive spirometry Diurese to euvolemia Fluid restriction Monitor renal function. Monitor electrolytes. Supplement as necessary. Monitor ins and outs. GI prophylaxis - Pepcid DVT prophylaxis - SCDs. Prognosis: Poor given patient's multiple co-morbidities. Rest of plan per hospitalist and other consultants. Thank you, ZOILA Shah, for allowing me to participate in this patient's care. Further recommendations will depend on the patient's clinical course. Please do not hesitate to contact me if you have any questions or concerns. This medical document was created using an electronic medical record system with [employer] dictation system. Although these documentations are being carefully reviewed, there may still be some phonetic and typographical changes. The errors are purely typographical, due to imperfection on the software program, and do not reflect any compromise in the patient's medical care. Plan discussed with: Patient, Other (KRISTINA Torres) SERA OROZCO MD Apr 19, 2024 23:28
[2024-04-20] VITALS (9 sets, daily range): BP systolic 104–136; BP diastolic 63–73; PULSE 77–98; RESP 16–18; TEMP 36.2; O2SAT 94–98
[2024-04-20 06:05] LABS: Basophils # (auto) 0 10 ^3/uL (0-0.2); Basophils % (auto) 0.1 % (0.0-2.0); Eosinophils # (auto) 0 10 ^3/uL (0-0.8); Hematocrit 40.6 % (41.0-53.0); Hemoglobin 13.5 g/dL (13.5-17.5); Lymphocytes # (auto) 0.5 10 ^3/uL (0.4-5.4); Lymphocytes % (auto) 3.3 % (10.0-50.0); Mean Corpuscular Hgb Conc. 33.2 g/dL (32.0-36.0); Mean Corpuscular Volume 102.2 fL (80.0-100.0); Monocytes # (auto) 0.8 10 ^3/uL (0-1.3); Neutrophils % (auto) 91.6 % (37.0-80.0); Nucleated Red Blood Cells % 0.1 %; Platelet Count (auto) 80 10^3/uL (140-450); Red Blood Cells 3.97 10^6/uL (4.5-5.90); Red Cell Distribution Width 14.3 % (11.8-14.3); White Blood Cell 15.2 10^3/uL (4.4-10.8)
[2024-04-20 06:20] LABS: Alanine Aminotransferase 27 U/L (7-40); Albumin 3.7 g/dL (3.2-4.8); Anion Gap 8 (5-15); BUN/Creatinine Ratio 24.3 (10.0-20.0); Bilirubin, Total 0.7 mg/dL (0.2-1.0); Calcium 9.4 mg/dL (8.7-10.4); Carbon Dioxide 29 mmol/L (20-31); Chloride 101 mmol/L (98-107); Glucose 78 mg/dL (74-106); Potassium 3.8 mmol/L (3.5-5.1); Sodium 138 mmol/L (136-145); Total Protein 6.1 g/dL (5.7-8.2)
[2024-04-20 06:22] LABS: Alkaline Phosphatase 197 U/L (46-116); Aspartate Aminotransferase 41 U/L (13-40); Blood Urea Nitrogen 36 mg/dL (9-23)
[2024-04-20] MEDS: SPIRONOLACTONE 25 MG TAB PO SCH (09:39)
[2024-04-20] MEDS: METOPROLOL SUCCINATE XL 50 MG TAB PO SCH (09:42)
[2024-04-20] MEDS ORDERED: LACTATED RINGER'S 200 ML IV SCH (09:45)
[2024-04-20] MEDS ORDERED: METOPROLOL SUCCINATE XL 50 MG TAB PO SCH (10:00)
--- NOTE | 2024-04-20 10:22 | ECG ---
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
[2024-04-20] MEDS: ONDANSETRON HCL 4 MG/2 ML VIAL IV PRN (11:22)
[2024-04-20] MEDS: SODIUM CHLORIDE 0.9% 1,000 ML IV SCH (11:26)
[2024-04-20 13:55] LABS: Calcium 9.4 mg/dL (8.7-10.4)
[2024-04-20 13:56] LABS: Anion Gap 7 (5-15); Chloride 99 mmol/L (98-107); Sodium 137 mmol/L (136-145)
[2024-04-20 13:57] LABS: Carbon Dioxide 31 mmol/L (20-31)
[2024-04-20 14:01] LABS: BUN/Creatinine Ratio 33.6 (10.0-20.0); Glucose 101 mg/dL (74-106)
[2024-04-20 14:03] LABS: Blood Urea Nitrogen 43 mg/dL (9-23)
[2024-04-20] MEDS ORDERED: DOXY1CAP57 PO (14:51)
[2024-04-20] MEDS ORDERED: METO25TA93 PO (14:51)
[2024-04-20] MEDS ORDERED: EMPA1TAB PO (14:51)
[2024-04-20] MEDS ORDERED: SPIR25TA PO (14:51)
--- NOTE | 2024-04-20 15:07 | DVHDS2 ---
Discharge Summary Date of Admission Apr 17, 2024 at 14:21 Date of Discharge: Apr 20, 2024 Admitting Diagnosis Shortness of breath Labs/Diagnostic Data: Laboratory Results Test 04/20/24 13:05 04/20/24 05:25 04/19/24 10:17 04/17/24 19:29 Sodium Level 137 mmol/L (136-145) Potassium Level 4.0 mmol/L (3.5-5.1) Chloride Level 99 mmol/L (98-107) Carbon Dioxide Level 31 mmol/L (20-31) Anion Gap 7 (5-15) Blood Urea Nitrogen 43 mg/dL (9-23) Creatinine 1.28 mg/dL (0.700-1.30) Glomerular Filtration Rate Calc 55 mL/min (>90) BUN/Creatinine Ratio 33.6 (10.0-20.0) Serum Glucose 101 mg/dL (74-106) Calcium Level 9.4 mg/dL (8.7-10.4) White Blood Count 15.2 10^3/uL (4.4-10.8) Red Blood Count 3.97 10^6/uL (4.5-5.90) Hemoglobin 13.5 g/dL (13.5-17.5) Hematocrit 40.6 % (41.0-53.0) Mean Corpuscular Volume 102.2 fL (80.0-100.0) Mean Corpuscular Hemoglobin 34.0 pg (28.0-32.0) Mean Corpuscular Hemoglobin Concent 33.2 g/dL (32.0-36.0) Red Cell Distribution Width 14.3 % (11.8-14.3) Platelet Count 80 10^3/uL (140-450) Mean Platelet Volume 9.5 fL (6.9-10.8) Neutrophils (%) (Auto) 91.6 % (37.0-80.0) Lymphocytes (%) (Auto) 3.3 % (10.0-50.0) Monocytes (%) (Auto) 5.0 % (0.0-12.0) Eosinophils (%) (Auto) 0.0 % (0.0-7.0) Basophils (%) (Auto) 0.1 % (0.0-2.0) Neutrophils # (Auto) 14.0 10 ^3/uL (1.6-8.6) Lymphocytes # (Auto) 0.5 10 ^3/uL (0.4-5.4) Monocytes # (Auto) 0.8 10 ^3/uL (0-1.3) Eosinophils # (Auto) 0 10 ^3/uL (0-0.8) Basophils # (Auto) 0 10 ^3/uL (0-0.2) Nucleated Red Blood Cells 0.1 % Total Bilirubin 0.7 mg/dL (0.2-1.0) Aspartate Amino Transferase (AST) 41 U/L (13-40) Alanine Aminotransferase (ALT) 27 U/L (7-40) Alkaline Phosphatase 197 U/L (46-116) Total Protein 6.1 g/dL (5.7-8.2) Albumin 3.7 g/dL (3.2-4.8) Differential Total Cells Counted 100.0 (100) Neutrophils % (Manual) 96 (37.0-80.0) Band Neutrophils % (Manual) 0 Lymphocytes % (Manual) 1 (10.0-50.0) Monocytes % (Manual) 3 (0-12) Eosinophils % (Manual) 0 (0-7) Basophils % (Manual) 0 (0.0-2.0) Metamyelocytes % (manual) 0 Myelocytes % (Manual) 0 Promyelocytes % (Manual) 0 Blast Cells % (Manual) 0 Reactive Lymphocytes 0 Smudge Cells 1 /100 WBC Platelet Estimate Decreased Macrocytosis Slight Urine Color Yellow (Yellow) Urine Clarity Clear (Clear) Urine pH 5.0 (5.0-9.0) Urine Specific [place] 1.014 (1.001-1.035) Urine Protein 1+ (Negative) Urine Ketones Negative (Negative) Urine Blood Negative /uL (Negative) Urine Nitrite Negative (Negative) Urine Bilirubin Negative (Negative) Urine Urobilinogen Normal mg/dL (Negative) Urine Leukocyte Esterase Negative /uL (Negative) Urine RBC <1 /hpf (0 - 3) Urine Microscopic WBC 1 /HPF (0-3) Urine Squamous Epithelial Cells None seen /hpf (<5) Urine Calcium Oxalate Crystals Few (None Seen) Urine Bacteria None seen /hpf (None Seen) Urine Hyaline Casts Few /lpf (0 - 2) Urine Mucus Few (None Seen) Urine Glucose Normal mg/dL (Normal) Test 04/17/24 10:55 04/17/24 10:16 B-Type Natriuretic Peptide 1034.07 pg/mL (0-100) Troponin I High Sensitivity 28 ng/L (</=54) Other Laboratory Tests 04/20/24 13:05 04/20/24 05:25 Brief Hx & Hospital Course: HPI: 83-year-old male with past medical history of AFib, arthritis, CHF, COPD, and PUD presented to [facility] ED with complaint of shortness of breaths. Patient reports he has been experiencing shortness of breaths for the past 4 days, dizziness, getting worse today that prompted this visit. Hospitalization course: On exam patient continues to have rales in lower lungs bilaterally. labs show neutrophilia percent 80.6 high. BNP elevated 1034, T bili 1.1 high, ALP 217 high. CXR with concern for pulmonary vascular congestion versus pneumonia. Patient admitted for pneumonia with COPD pneumonitis and CHF exacerbation. Started on ceftriaxone and azithromycin IV, with Solu-Medrol and duo nebs, started diuresis with Lasix 20 IV b.i.d. patient is improving with diuresis and antibiotics. It was noted that patient most recently EF is 35 %, i.e. HFrEF. Patient endorses that he is being followed closely by [facility] and has had workup with and including angiogram/LHC. Records requested but not been obtained while patient was optimized. We will start GDM T for HFrEF and defer optimization to [facility] as per plan below. Patient is stable for discharge. 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; AFib; Osteoarthritis; Peptic ulcer disease ; TIMBO due to VMN, resolving; Discharge plan: - take doxycycline 100 mg tablet, 2 times daily, for 5 days - start Jardiance 10 mg daily, metoprolol XL 25 mg daily, Aldactone 12.5 mg daily, - continue Flomax, Lasix 20 mg daily, Pepcid twice daily - follow up with [facility] -Follow up with PCP Visitation and planning required 35 minutes Condition at Discharge: Fair Final Diagnosis/Problems List Acute on chronic systolic heart failure exacerbation , HFrEF exacerbation;Acute COPD exacerbation with pneumonitis; Pneumonia Gram-negative Gram-positive/atypical likely ; Macrocytosis; Stable thrombocytopenia; 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 Patient was counseled about treatment plan, medications, possible side effects, patientverbalized understanding. All questions were answered to the best of my ability. This discharge took greater then 30 minutes in planning, reviewing documentation, counseling the patient, and discussing with other team members." Date of Service: Apr 20, 2024 Billing Provider: ZEENAT PRATT MD Common Visit Codes: 48344-GYR/OBS DISCH DAY >30min ZEENAT PRATT MD Apr 20, 2024 15:07
--- NOTE | 2024-04-20 23:16 | DVHPN2 ---
Progress Note - Dictate Date Seen: Apr 20, 2024 Medical Necessity Reason Pt with a Central, PICC or Fol: No Subjective Patient seen and examined at bedside. Breathing comfortably on room air. Overnight events reviewed. vital signs Vital Sign Date Time Temp Pulse Resp B/P (MAP) Pulse Ox O2 Delivery O2 Flow Rate FiO2 04/20/24 17:26 97.4 98 16 118/70 (86) 95 97.4 04/20/24 10:40 0.0 04/20/24 08:46 Room Air* 21 Total Intake and Output 04/19/24 04/19/24 04/20/24 15:00 23:00 07:00 Intake Total 300 ml 560 ml 250 ml Output Total 640 ml 550 ml Balance 300 ml -80 ml -300 ml objective Gen.: Patient lying in bed in no apparent distress. Breathing on room air. Head: Normocephalic, atraumatic. Eyes: EOMI/PERRLA. Ears: Normal hearing. Normal anatomy. Neck/trachea: Trachea midline, supple. Nose: Normal external anatomy. Mouth: Moist mucous membranes. Chest: Decreased air entry bilaterally. Wheezing, improving. No rhonchi. Cardiovascular: Positive S1, positive S2. Regular rate and rhythm. Abdomen: Positive bowel sounds in all 4 quadrants. Soft, non-tender, non- distended. : Deferred. Rectal: Deferred. Skin: Warm, dry. Intact. Extremities: 2+ radial pulses bilaterally. No lower extremity edema. Neuro: Awake, alert, oriented x3. No gross motor or sensory deficits. Cranial nerves II through XII intact. Gait not assessed. 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 Supplemental oxygen PRN No acute events Continue bronchodilators PRN Continue antibiotics Incentive spirometry Monitor WBC Diurese as tolerated w/ spironolactone Monitor renal function. Monitor electrolytes. Supplement as necessary. Obtain cardiac records from [facility], Dr. Torres, Cardiology GI/DVT prophylaxis Patient is stable for discharge from the pulmonary standpoint Labs and imaging reviewed. Rest of plan as noted below. Plan: Supplemental oxygen PRN Titrate to keep O2 sats above 92%. Continue bronchodilators PRN Continue IV antibiotics Off steroids Incentive spirometry Diurese to euvolemia Fluid restriction Monitor renal function. Monitor electrolytes. Supplement as necessary. Monitor ins and outs. GI prophylaxis - Pepcid DVT prophylaxis - SCDs. Prognosis: Poor given patient's multiple co-morbidities. Rest of plan per hospitalist and other consultants. Thank you, ZOILA Shah, for allowing me to participate in this patient's care. Further recommendations will depend on the patient's clinical course. Please do not hesitate to contact me if you have any questions or concerns. This medical document was created using an electronic medical record system with [employer] dictation system. Although these documentations are being carefully reviewed, there may still be some phonetic and typographical changes. The errors are purely typographical, due to imperfection on the software program, and do not reflect any compromise in the patient's medical care. Plan discussed with: Patient, Other (KRISTINA Torres) SERA OROZCO MD Apr 20, 2024 23:16
--- NOTE | 2024-04-27 07:06 | ECG ---
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
== END 2024-04-20 16:58 | disposition home or self-care (01) | DRG 177 ==
LOC: ER 09:31 → TELE 14:21 → TELE-CENTR 04-18 10:14
PROVIDERS: ADMIT Nurse Practitioner Family; ATTEND Student in an Organized Health Care Education/Training Program
DX: J15.69 Pneumonia due to other Gram-negative bacteria (principal); I50.23 Acute on chronic systolic (congestive) heart failure; N17.0 Acute kidney failure with tubular necrosis; J44.1 Chronic obstructive pulmonary disease with (acute) exacerbation; J98.11 Atelectasis; Z68.1 Body mass index [BMI] 19.9 or less, adult; R64 Cachexia; J44.0 Chronic obstructive pulmonary disease with (acute) lower respiratory infection; D69.6 Thrombocytopenia, unspecified; I48.91 Unspecified atrial fibrillation; N18.2 Chronic kidney disease, stage 2 (mild); J98.4 Other disorders of lung; M19.90 Unspecified osteoarthritis, unspecified site; D75.89 Other specified diseases of blood and blood-forming organs; Z82.49 Family history of ischemic heart disease and other diseases of the circulatory system; Z87.11 Personal history of peptic ulcer disease
CPT/HCPCS: 36415; 71045; 80048; 80053; 81001; 83880; 84484; 85007; 85025; 85027; 93005; 94640; 99291; G0378; J2405; J3490

== ENCOUNTER 2024-05-08 09:15 | Inpatient (IN) | payer OTHER, MEDICARE ==
[2024-05-08] VITALS (7 sets, daily range): BP systolic 126–131; BP diastolic 59–65; PULSE 94–110; RESP 16–24; TEMP 97.4–98; O2SAT 97–100
[~2024-05-08] VITALS: Ht 180.3 cm; Wt 61.0 kg
[~2024-05-08 09:15] MED LIST changes: +DOXY1CAP57 PO; +EMPA1TAB PO; -HYDR200T36 PO; -METO25TA5 PO; +METO25TA93 PO; -MUPI2CRE17 EX; +SPIR25TA PO; -TAMIFLU PO
--- NOTE | 2024-05-08 10:04 | ED.PDOC ---
SOB-HPI HPI Comments 83-year-old with PMHx COPD presents with a chief complaint of SOB x 4 days with persistent cough. Patient reports that he has chest tightness as well when he is coughing. Patient denies active chest pain at this time. Patient was found to be in A-Fib in triage. Patient denies home oxygen use as well. Chief Complaint: Shortness of Breath Time Seen by MD: 09:45 Primary Care Provider: emilie Reviewed notes: Medications, Allergies Information Source: Patient Mode of Arrival: Ambulatory Severity: Moderate Timing: Days Duration: Since onset Context: At Rest PE Risk Factors: None History of: COPD Prehospital treatment: None Associated Signs and Symptoms: Cough Quality: Tightness Radiation: No Radiation Location: Substernal If cough with SOB: Non-Productive Past Medical History PAST MEDICAL HISTORY: AFIB, Arthritis, CHF, COPD, PUD Surgical History: Hernia Repair, Tonsillectomy Family History Family History: Reviewed,noncontributory to illness Social History Smoker: Non-Smoker Alcohol: Denies ETOH Use Drugs: Denies Drug Use Lives In: Home Constitutional: denies: chills, diaphoresis, fatigue, fever, malaise, sweats, weakness, others EENTM: denies: blurred vision, double vision, ear bleeding, ear discharge, ear drainage, ear pain, ear ringing, eye pain, eye redness, hearing loss, mouth pain, mouth swelling, nasal discharge, nose bleeding, nose congestion, nose pain, photophobia, tearing, throat pain, throat swelling, voice changes, others Respiratory: reports: cough, shortness of breath; denies: hemoptysis, orthopnea, SOB at rest, SOB with excertion, stridor, wheezing, others Cardiovascular: denies: chest pain, dizzy spells, diaphoresis, Dyspnea on exertion, edema, irregular heart beat, left arm pain, lightheadedness, palpitations, PND, syncope, others Gastrointestinal: denies: abdomen distended, abdominal pain, blood streaked bowels, constipated, diarrhea, dysphagia, difficulty swallowing, hematemesis, melena, nausea, poor appetite, poor fluid intake, rectal bleeding, rectal pain, vomiting, others Genitourinary: denies: burning, dysuria, flank pain, frequency, hematuria, incontinence, penile discharge, penile sore, pain, testicle pain, testicle swelling, urgency, others Neurological: denies: dizziness, fainting, headache, left sided numbness, left sided weakness, numbness, paresthesia, pre-existing deficit, right sided numbness, right sided weakness, seizure, speech problems, tingling, tremors, weakness, others Musculoskeletal: denies: back pain, gout, joint pain, joint swelling, muscle pain, muscle stiffness, neck pain, others Integumetry: denies: bruises, change in color, change in hair/nails, dryness, laceration, lesions, lumps, rash, wounds, others Allergic/Immunocompromised: denies: Difficulty Healing, Frequent Infections, Hives, Itching, others Hematologic/Lymphatic: denies: anemia, blood clots, easy bleeding, easy bruising, swollen glands, others Endocrine: denies: excessive hunger, excessive sweating, excessive thirst, excessive urination, flushing, intolerance to cold, intolerance to heat, unexplained weight gain, unexplained weight loss, others Psychiatric: denies: anxiety, bipolar disorder, depression, hopeless, panic disorder, schizophrenia, sleepless, suicidal, others All Other Systems: Reviewed and Negative Physical Exam General Appearance: Moderate Distress, Normal HEENT: Normal ENT Inspection, Pharynx Normal, TMs Normal Neck: Full Range of Motion, Non-Tender, Normal, Normal Inspection Respiratory: Chest Non-Tender, Respiratory Distress, Wheezing Cardiovascular: Irregular, No Edema, No JVD, No Murmur, No Gallop, Normal Peripheral Pulses, Tachycardia Breast Exam: Deferred Gastrointestinal: No Organomegaly, Non Tender, No Pulsatile Mass, Normal Bowel Sounds, Soft Genitalia: Deferred Pelvic: Deferred Rectal: Deferred Extremities: No calf tenderness, Normal capillary refill, Normal inspection, Normal range of motion, Non-tender, No pedal edema Musculoskeletal : Apperance: Normal Neurologic: Alert, county auditor II-XII nml as Tested, No Motor Deficits, Normal Affect, Normal Mood, No Sensory Deficits Cerebellar Function: NOT DONE Reflexes: NOT DONE Skin: Dry, Normal Color, Warm Lymphatic: No Adenopathy Was a procedure done? Was a procedure done?: No Differential Dx Differential Diagnosis: Anxiety, Asthma, Bronchitis, CHF, COPD X-Ray, Labs, Meds, VS Vital Signs Date Time Temp Pulse Resp B/P (MAP) Pulse Ox O2 Delivery O2 Flow Rate FiO2 05/08/24 12:23 107 2/17/25 11:00 109 36 121/68 (85) 96 05/08/24 10:25 97 19 99 Room Air* 0 21 05/08/24 10:00 102 29 122/74 (90) 100 05/08/24 09:42 97.7 133 20 173/86 (115) 97 05/08/24 09:30 124 Lab Test 05/08/24 10:28 05/08/24 10:07 Range/Units POC Glucose 85 70-106 mg/dl White Blood Count 5.9 4.4-10.8 10^3/uL Red Blood Count 4.08 L 4.5-5.90 10^6/uL Hemoglobin 13.9 13.5-17.5 g/dL Hematocrit 42.6 41.0-53.0 % Mean Corpuscular Volume 104.3 H 80.0-100.0 fL Mean Corpuscular Hemoglobin 33.9 H 28.0-32.0 pg Mean Corpuscular Hemoglobin Concent 32.5 32.0-36.0 g/dL Red Cell Distribution Width 15.8 H 11.8-14.3 % Platelet Count 69 L 140-450 10^3/uL Mean Platelet Volume 10.5 6.9-10.8 fL Neutrophils (%) (Auto) 80.4 H 37.0-80.0 % Lymphocytes (%) (Auto) 9.9 L 10.0-50.0 % Monocytes (%) (Auto) 7.8 0.0-12.0 % Eosinophils (%) (Auto) 1.3 0.0-7.0 % Basophils (%) (Auto) 0.6 0.0-2.0 % Neutrophils # (Auto) 4.7 1.6-8.6 10 ^3/uL Lymphocytes # (Auto) 0.6 0.4-5.4 10 ^3/uL Monocytes # (Auto) 0.5 0-1.3 10 ^3/uL Eosinophils # (Auto) 0.1 0-0.8 10 ^3/uL Basophils # (Auto) 0 0-0.2 10 ^3/uL Nucleated Red Blood Cells 0.2 % Sodium Level 136 136-145 mmol/L Potassium Level 4.9 3.5-5.1 mmol/L Chloride Level 101 98-107 mmol/L Carbon Dioxide Level 27 20-31 mmol/L Anion Gap 8 5-15 Blood Urea Nitrogen 22 9-23 mg/dL Creatinine 1.09 0.700-1.30 mg/dL Glomerular Filtration Rate Calc 67 >90 mL/min BUN/Creatinine Ratio 20.2 H 10.0-20.0 Serum Glucose 90 74-106 mg/dL Calcium Level 9.5 8.7-10.4 mg/dL Troponin I High Sensitivity 26 </=54 ng/L Current Medications Medications (Trade) Dose Ordered Sig/Louie Route Start Time Stop Time Status Last Admin Methylprednisolone Sodium Succinate (Solu Medrol) 125 mg ONCE ONCE IV 05/08/24 10:15 05/08/24 10:16 DC 05/08/24 10:39 Patient alert pain Complaining of shortness a breath. Was seen recently for similar condition few weeks ago at this hospital. Mentating well. EKG does show atrial fibrillation. Cardiac marker within normal limits. WBC within normal limits. Started amiodarone. Explained to the patient. Continue cardiac monitoring. Time of 1ST Reevaluation: 10:15 Reevaluation 1ST: Unchanged Patient Education/Counseling: Diagnosis, Treatment, Prognosis Family Education/Counseling: Diagnosis, Treatment, Prognosis Departure 1 Departure Time of Disposition: 12:32 Impression: Primary Impression: Atrial fibrillation with rapid ventricular response Additional Impressions: COPD with acute exacerbation Acute on chronic diastolic heart failure Disposition: ADMITTED INPATIENT Admit to: Med Surg Condition: Guarded Critical Care Note Critical Care Time?: Yes (45 min-critical care time only) Critical care comment: Atrial fibrillation started amiodarone Stability Stability form required: No Heart Score Heart Score: Heart Score Response (Comments) Value History Slightly Suspicious 0 EKG Normal 0 Age >65 2 Risk Factors >3 or Hx ASHD 2 Troponin Normal limit 0 Total 4 I personally scribed for ZULMA PATEL MD ([email or web address]) on 05/08/24 at 10:04. Electronically submitted by Tristan Pinzon ([email or web address]). ZULMA PATEL MD May 08, 2024 10:04
[2024-05-08] MEDS: AMIODARONE BOLUS KIT 100 ML IV ONE (10:15)
--- NOTE | 2024-05-08 10:21 | DVH ---
XY CHEST PORTABLE, HISTORY: sob COMPARISON: XY CHEST PORTABLE on DOS: 04/17/24, XY CHEST PORTABLE on DOS: 03/13/24, XY CHEST PORTABLE on DOS: 03/11/24 XY CHEST PORTABLE on DOS: 04/17/24, XY CHEST PORTABLE on DOS: 03/13/24, XY CHEST PORTABLE on DOS: 02/20 04/14 TECHNICAL DATA: 1 view of the chest was obtained. FINDINGS: Lines and tubes: None Cardiomediastinal silhouette: prominent Pulmonary vasculature: prominent Lung expansion: normal Lung airspace: left basilar consolidation Lung interstitium: increased Pleura: left effusion Pneumothorax: no Bones: Unremarkable Other: no IMPRESSION: Left basilar consolidation with left pleural effusion.
[2024-05-08 10:35] LABS: Basophils # (auto) 0 10 ^3/uL (0-0.2); Basophils % (auto) 0.6 % (0.0-2.0); Eosinophils # (auto) 0.1 10 ^3/uL (0-0.8); Eosinophils % (auto) 1.3 % (0.0-7.0); Hematocrit 42.6 % (41.0-53.0); Hemoglobin 13.9 g/dL (13.5-17.5); Lymphocytes # (auto) 0.6 10 ^3/uL (0.4-5.4); Lymphocytes % (auto) 9.9 % (10.0-50.0); Mean Corpuscular Hemoglobin 33.9 pg (28.0-32.0); Mean Corpuscular Hgb Conc. 32.5 g/dL (32.0-36.0); Mean Corpuscular Volume 104.3 fL (80.0-100.0); Monocytes # (auto) 0.5 10 ^3/uL (0-1.3); Monocytes % (auto) 7.8 % (0.0-12.0); Neutrophils # (auto) 4.7 10 ^3/uL (1.6-8.6); Neutrophils % (auto) 80.4 % (37.0-80.0); Nucleated Red Blood Cells % 0.2 %; Platelet Count (auto) 69 10^3/uL (140-450); Red Blood Cells 4.08 10^6/uL (4.5-5.90); Red Cell Distribution Width 15.8 % (11.8-14.3); White Blood Cell 5.9 10^3/uL (4.4-10.8)
[2024-05-08] MEDS: methylPREDNISolone SOD SUCC 125 MG/2 ML VL IV ONE (10:39)
[2024-05-08] MEDS: AMIODARONE 360mg/200mL PREMIX 200 ML IV ONE (11:00)
[2024-05-08 11:03] LABS: Anion Gap 8 (5-15); Carbon Dioxide 27 mmol/L (20-31); Chloride 101 mmol/L (98-107); Potassium 4.9 mmol/L (3.5-5.1); Sodium 136 mmol/L (136-145)
[2024-05-08 11:04] LABS: Calcium 9.5 mg/dL (8.7-10.4)
[2024-05-08 11:08] LABS: Glucose 90 mg/dL (74-106)
[2024-05-08 11:09] LABS: BUN/Creatinine Ratio 20.2 (10.0-20.0); Blood Urea Nitrogen 22 mg/dL (9-23)
[2024-05-08 13:22] LABS: Urine Bacteria None Seen /hpf (None Seen)
[2024-05-08] MEDS ORDERED: ONDANSETRON HCL 4 MG/2 ML VIAL IV PRN (13:30)
[2024-05-08] MEDS ORDERED: MORPHINE SULFATE INJ 2 MG/ml SYRG IV PRN (13:30)
[2024-05-08] MEDS ORDERED: DOCUSATE SOD 100 MG CAP PO PRN (13:30)
[2024-05-08] MEDS ORDERED: NITROGLYCERIN 0.4 MG SL TAB SL PRN (13:30)
[2024-05-08] MEDS: SODIUM CHLOR 0.9% PF (SALINE LOCK) 10ML VIAL/SYR IV SCH (14:00)
[2024-05-08 14:15] LABS: Urine Blood Negative /uL (Negative); Urine Clarity Clear (Clear); Urine Color Yellow (Yellow); Urine Mucus FEW (None Seen); Urine Protein, UAD 1+ (Negative); Urine Specific Gravity 1.029 (1.001-1.035); Urine Squamous Epithelial Cell FEW /hpf (<5); Urine Urobilinogen Normal (Negative); Urine WBC 3 /HPF (0-3); Urine pH 5.5 (5.0-9.0)
--- NOTE | 2024-05-08 14:15 | DVHHP2 ---
History of Present Illness Reason for Visit: Shortness of breath History of Present Illness Yandel Pedro is an 83-year-old male with past medical history of CHF, COPD, atrial fibrillation, and rheumatoid arthritis, who came in for shortness of breath. Patient states his symptoms began about 4 days ago and progressively worsened prompting him to come to the hospital. Patient states he lives alone and is usually independent, but he has been becoming weaker over the last few days. He does follow up cardiology at the [facility]. States he has had A-fib for a while, he was on Eliquis, but stopped a few months ago due to bleeding complications. States he is not on any blood thinners at this time. Cardiovascular: AFIB, CHF, HTN Pulmonary: COPD Rheumatologic: Rheumatoid arthritis Past Surgical History: Hernia Repair, Other (bleeding stomach ulcer), Tonsillectomy Family History: None Smoke: No ALCOHOL: none Drugs: None Lives: Alone Review of Systems Constitutional: No: Fever, Chills, Sweats, Weakness, Malaise, Other Eyes: No: Pain, Vision change, Conjunctivae inflammation, Eyelid inflammation, Other, Redness ENT: No: Ear pain, Ear discharge, Nose pain, Nose discharge, Nose congestion, Mouth pain, Mouth swelling, Throat pain, Throat swelling, Other Respiratory: Cough, Shortness of breath, SOB with excertion; No: Dry, Wheezing, Hemoptysis, Pleuritic Pain, Sputum, Wheezing, Other Cardiovascular: Palpitations; No: Chest Pain, Orthopnea, Paroxysmal Noc. Dyspnea, Edema, Lt Headedness, Other Gastrointestinal: No: Nausea, Vomiting, Abdominal Pain, Diarrhea, Constipation, Melena, Hematochezia, Other Genitourinary: No Dysuria, No Frequency, No Incontinence, No Hematuria, No Retention, No Other Musculoskeletal: No: other, neck pain, shoulder pain, arm pain, back pain, hand pain, leg pain, foot pain Skin: No: Rash, Lesions, Jaundice, Bruising, Other Neurological: No: Weakness, Numbness, Incoordination, Change in speech, Confusion, Seizures, Other Allergies: Coded Allergies: Sulfa Antibiotics (Verified Allergy, Severe, 05/08/24) Sulfabenzamide (Verified Allergy, Intermediate, 05/08/24) Sulfacetamide (Verified Allergy, Intermediate, 05/08/24) Sulfathiazole (Verified Allergy, Intermediate, 05/08/24) Exam Vital Signs Vital Signs Date Time Temp Pulse Resp B/P (MAP) Pulse Ox O2 Delivery O2 Flow Rate FiO2 05/08/24 12:23 107 05/08/24 11:00 36 121/68 (85) 96 05/08/24 10:25 Room Air* 0 21 05/08/24 09:42 97.7 General Appearance: Alert, Oriented X3, Cooperative, moderate distress HEENT: Atraumatic, PERRLA Respiratory: Other (diminished left lung isaacs) Cardiovascular: Normal S1, Normal S2, Other (A-Fib with RVR) Abdominal: Normal bowel sounds, Soft, No tenderness Extremities: No clubbing, No cyanosis, No edema, Normal pulses Skin: No rashes, No breakdown, No significant lesion Neuro: Normal speech, Other (decreased strength) Psych/Mental Status: Mental status NL, Mood NL Labs/Xrays Labs Test 05/08/24 12:41 05/08/24 10:28 05/08/24 10:07 Range/Units POC Glucose 85 70-106 mg/dl White Blood Count 5.9 4.4-10.8 10^3/uL Red Blood Count 4.08 L 4.5-5.90 10^6/uL Hemoglobin 13.9 13.5-17.5 g/dL Hematocrit 42.6 41.0-53.0 % Mean Corpuscular Volume 104.3 H 80.0-100.0 fL Mean Corpuscular Hemoglobin 33.9 H 28.0-32.0 pg Mean Corpuscular Hemoglobin Concent 32.5 32.0-36.0 g/dL Red Cell Distribution Width 15.8 H 11.8-14.3 % Platelet Count 69 L 140-450 10^3/uL Mean Platelet Volume 10.5 6.9-10.8 fL Neutrophils (%) (Auto) 80.4 H 37.0-80.0 % Lymphocytes (%) (Auto) 9.9 L 10.0-50.0 % Monocytes (%) (Auto) 7.8 0.0-12.0 % Eosinophils (%) (Auto) 1.3 0.0-7.0 % Basophils (%) (Auto) 0.6 0.0-2.0 % Neutrophils # (Auto) 4.7 1.6-8.6 10 ^3/uL Lymphocytes # (Auto) 0.6 0.4-5.4 10 ^3/uL Monocytes # (Auto) 0.5 0-1.3 10 ^3/uL Eosinophils # (Auto) 0.1 0-0.8 10 ^3/uL Basophils # (Auto) 0 0-0.2 10 ^3/uL Nucleated Red Blood Cells 0.2 % Sodium Level 136 136-145 mmol/L Potassium Level 4.9 3.5-5.1 mmol/L Chloride Level 101 98-107 mmol/L Carbon Dioxide Level 27 20-31 mmol/L Anion Gap 8 5-15 Blood Urea Nitrogen 22 9-23 mg/dL Creatinine 1.09 0.700-1.30 mg/dL Glomerular Filtration Rate Calc 67 >90 mL/min BUN/Creatinine Ratio 20.2 H 10.0-20.0 Serum Glucose 90 74-106 mg/dL Calcium Level 9.5 8.7-10.4 mg/dL Troponin I High Sensitivity 26 </=54 ng/L XY CHEST PORTABLE, FINDINGS: Lines and tubes: None Cardiomediastinal silhouette: prominent Pulmonary vasculature: prominent Lung expansion: normal Lung airspace: left basilar consolidation Lung interstitium: increased Pleura: left effusion Pneumothorax: no Bones: Unremarkable Other: no IMPRESSION: Left basilar consolidation with left pleural effusion. Assessment/Plan Assessment/Plan Assessment: Atrial fibrillation with rapid ventricular response, Acute on chronic COPD exacerbation, Left pleural effusion, Possible pneumonia, BPH, Plan: Admit to Tele, Cardiology consult, IV amiodarone, IV steroids, Supplemental oxygen as needed, Breathing treatments as needed, IV antibiotics, Radiology consult for possible thoracentesis, Home medications reconciled, Plan discussed with: Patient My Orders Orders - NICHOLE WATTS Procedure Category Date Status Time Admit ADMIT 05/08/24 Verified 13:22 Code Status CODE 05/08/24 Verified 13:22 Sodium Chloride Lock PHA 05/08/24 Verified (Saline Lock Ns) 14:00 Hydrocodone-Acet PHA 05/08/24 Verified 5/325mg Tab ([place] 13:30 Ondansetron Hcl PHA 05/08/24 Verified (Zofran) 13:30 Docusate Sodium PHA 05/08/24 Verified Capsule (Colace 13:30 Date of Service: May 08, 2024 Billing Provider: NICHOLE WATTS Common Visit Codes: [id number] INP/OBS CARE (MOD) NICHOLE WATTS May 08, 2024 14:15
[2024-05-08] MEDS: cefTRIAXone 1GM/50ML D5W 50 ML IV ONE (15:02)
--- NOTE | 2024-05-08 16:14 | DVHINCON2 ---
[facility] 05/08/24 1614: Date Seen: May 08, 2024 Referring Physician ZOILA James Reason for Consultation Atrial fibrillation with rapid ventricular response History of Present Illness This is an 83-year-old male patient who presents to the emergency room with chief complaint of shortness of breath and generalized weakness for four days. He comes to the emergency room for further evaluation. Cardiology has now been consulted for atrial fibrillation with a rapid ventricular response. Initial twelve lead electrocardiogram reveals atrial fibrillation. Initial troponin level is negative. Initial BNP level of 921.21pg/mL. The patient denies any ch est pain at time of assessment. Significant past medical history includes persistent atrial fibrillation (off NOAC therapy), congestive heart failure, hypertension, thoracic aortic aneurysm, moderate aortic valve regurgitation, COPD, benign prostatic hyperplasia, arthritis, anxiety, and previous tobacco use. The patient reports he follows up with a roto mixer operator at the [facility] in [facility]. He also reports that he has not been taking all of his medications, specifically his heart failure medications. He also admits he stopped taking his metoprolol because he states that he felt like his blood pressure was being affected. He reports stopping his Lasix at home because it was causing him to urinate too frequently. Past Medical History Past medical history reviewed. No other significant than mentioned above. Past Surgical History Bilateral hernia repair Hemorrhoidectomy Family History: Alcoholism G8 FATHER FH: atrial fibrillation G8 MOTHER, Onset:60 years & older GERD G8 MOTHER, Onset:60 years & older Hypertension G8 MOTHER, Onset:50's - 60 Family History Family history reviewed. Social History Patient has a 10 pack-year history, quit smoking approximately 40 years ago Denies any illicit drug use Denies any alcohol use Allergies: Coded Allergies: Sulfa Antibiotics (Verified Allergy, Severe, 05/08/24) Sulfabenzamide (Verified Allergy, Intermediate, 05/08/24) Sulfacetamide (Verified Allergy, Intermediate, 05/08/24) Sulfathiazole (Verified Allergy, Intermediate, 05/08/24) Home Meds Active Scripts Metoprolol Succinate (Metoprolol Succinate Er) 25 Mg Tab, 1 TAB PO DAILY, #30 TAB 1 Refill Prov:ZEENAT PRATT MD 04/20/24 Spironolactone (Aldactone) 25 Mg Tab, 12.5 MG PO DAILY for 30 Days, #15 TAB 1 Refill Prov:ZEENAT PRATT MD 04/20/24 Empagliflozin (Jardiance) 10 Mg Tab, 10 MG PO DAILY for 30 Days, #30 TAB 1 Refill Prov:ZEENAT PRATT MD 04/20/24 Furosemide (Furosemide) 20 Mg Tab, 1 TAB PO DAILY for 90 Days, #90 TAB 1 Refill Prov:JEN GOODE 09/21/23 Epinephrine (Anaphylaxis) (Auvi-Q) 0.1 Mg/0.1 Ml Inj, 0.1 MG IJ O PRN for 1 Day, #1 INJ Prov:MARCELO TOWNSEND MD 09/09/23 Famotidine (PEPCID TABLET) 20 Mg Tb, 1 TAB PO BID for 4 Days, #8 TAB 5 Refills Prov:MARCELO TOWNSEND MD 09/09/23 Temazepam (Restoril) 15 Mg Cp, 1 CAP PO QPM, #30 CAP 0 Refills Prov:HERBIE LEI MD 07/31/22 Reported Medications Zolpidem Tartrate (Ambien) 10 Mg Tab, PO QPM, #30 TAB 5 Refills 09/20/23 Tamsulosin Hcl (Flomax) 0.4 Mg Cap, 0.4 MG PO DAILY, CAP 09/04/23 Discontinued Scripts Doxycycline Monohydrate (Doxycycline Monohydrate) 100 Mg Cap, 1 CAP PO BID for 5 Days, #10 CAP 0 Refills Prov:ZEENAT PRATT MD 04/20/24 Home Meds Home medications reviewed. Current Medications Current Medications Medications (Trade) Dose Ordered Sig/Louie Route PRN Reason Start Time Stop Time Status Last Admin Sodium Chloride (Saline Lock Ns) 10 ml Q8HR IV 05/08/24 14:00 05/08/24 14:00 Acetaminophen/ Hydrocodone Bitart ([place] 5/325MG Tab) 1 tab Q4HP PRN PO MODERATE PAIN (4-6 PAIN SCALE) 05/08/24 13:30 Ondansetron HCl (Zofran) 4 mg Q4HP PRN IV NAUSEA / VOMITING 05/08/24 13:30 Docusate Sodium (Colace Capsule) 100 mg BIDPRN PRN PO FOR CONSTIPATION 05/08/24 13:30 Acetaminophen (Tylenol Tablet) 650 mg Q6HP PRN PO PAIN SCALE 1-3 OR TEMP>100.4 05/08/24 13:30 Nitroglycerin (Ntrostat Sublingual) 0.4 mg Q5MINP PRN SL FOR CHEST PAIN 05/08/24 13:30 Morphine Sulfate 2 mg Q30M PRN IV FOR CHEST PAIN 05/08/24 13:30 Famotidine (Pepcid Tablet) 20 mg BID PO 05/08/24 22:00 Furosemide (Lasix Tablet) 20 mg DAILY PO 05/09/24 10:00 Tamsulosin HCl (Flomax) 0.4 mg DAILY PO 05/09/24 10:00 Metoprolol Succinate (Toprol Xl) 25 mg DAILY PO 05/09/24 10:00 Methylprednisolone Sodium Succinate (Solu Medrol) 40 mg BID IV 05/08/24 22:00 Ceftriaxone Sodium 50 ml @ 100 mls/hr DAILY@09 IV 05/09/24 09:00 Ipratropium [place] (Atrovent Medneb) 0.5 mg Q6HWA NEB 05/08/24 18:00 Albuterol (Ventolin Medneb) 2.5 mg Q6HWA NEB 05/08/24 18:00 Review of Systems Constitutional: No symptom reported Ears, Nose, & Throat: No symptom reported Eyes: No symptom reported Neurological: No symptoms reported Pulmonary/Respiratory: Shortness of breath Cardiovascular: No symptom reported Gastrointestinal: No symptom reported Genitourinary: No symptom reported Musculoskeletal: No symptom reported Skin: No symptom reported Psychiatric: No symptom reported Endocrine: No symptom reported Hematologic/Lymphatic: No symptom reported Vital Signs Vital Signs Date Time Temp Pulse Resp B/P (MAP) Pulse Ox O2 Delivery O2 Flow Rate FiO2 05/08/24 14:31 98.0 100 24 131/65 100 1.0 24 98.0 05/08/24 10:25 Room Air* Physical Exam General Appearance: Cooperative. Well-developed. Well-nourished. No acute distress. Pulmonary/Respiratory: Expiratory wheezes Cardiovascular/Chest: Regular rate and rhythm. Peripheral Pulses: 2+ Radial (R). 2+ Radial (L). 1+ Pedal (R). 1+ Pedal (L) Abdominal Exam: Normal bowel sounds. Ankle Exam: 3+ pitting edema Lower extremities: 3+ pitting edema Neuro/Mental Status: A/OX4, coherent. Thoughts/Psych: Normal thought pattern. Appropriate mood and affect. Good judgment and insight. Appearance: No acute distress. Skin Exam: Normal inspection. Normal color. Warm and dry. Labs/Diagnostic Data Labs Test 05/08/24 12:41 05/08/24 10:28 05/08/24 10:07 Range/Units Urine Color Yellow Yellow Urine Clarity Clear Clear Urine pH 5.5 5.0-9.0 Urine Specific [place] 1.029 1.001-1.035 Urine Protein 1+ H Negative Urine Ketones Negative Negative Urine Blood Negative Negative /uL Urine Nitrite Negative Negative Urine Bilirubin Negative Negative Urine Urobilinogen Normal Negative mg/dL Urine Leukocyte Esterase Negative Negative /uL Urine RBC 5 0 - 3 /hpf Urine Microscopic WBC 3 0-3 /HPF Urine Squamous Epithelial Cells Few <5 /hpf Urine Calcium Oxalate Crystals Few None Seen Urine Bacteria None seen None Seen /hpf Urine Mucus Few None Seen Urine Glucose Normal Normal mg/dL POC Glucose 85 70-106 mg/dl White Blood Count 5.9 4.4-10.8 10^3/uL Red Blood Count 4.08 L 4.5-5.90 10^6/uL Hemoglobin 13.9 13.5-17.5 g/dL Hematocrit 42.6 41.0-53.0 % Mean Corpuscular Volume 104.3 H 80.0-100.0 fL Mean Corpuscular Hemoglobin 33.9 H 28.0-32.0 pg Mean Corpuscular Hemoglobin Concent 32.5 32.0-36.0 g/dL Red Cell Distribution Width 15.8 H 11.8-14.3 % Platelet Count 69 L 140-450 10^3/uL Mean Platelet Volume 10.5 6.9-10.8 fL Neutrophils (%) (Auto) 80.4 H 37.0-80.0 % Lymphocytes (%) (Auto) 9.9 L 10.0-50.0 % Monocytes (%) (Auto) 7.8 0.0-12.0 % Eosinophils (%) (Auto) 1.3 0.0-7.0 % Basophils (%) (Auto) 0.6 0.0-2.0 % Neutrophils # (Auto) 4.7 1.6-8.6 10 ^3/uL Lymphocytes # (Auto) 0.6 0.4-5.4 10 ^3/uL Monocytes # (Auto) 0.5 0-1.3 10 ^3/uL Eosinophils # (Auto) 0.1 0-0.8 10 ^3/uL Basophils # (Auto) 0 0-0.2 10 ^3/uL Nucleated Red Blood Cells 0.2 % Sodium Level 136 136-145 mmol/L Potassium Level 4.9 3.5-5.1 mmol/L Chloride Level 101 98-107 mmol/L Carbon Dioxide Level 27 20-31 mmol/L Anion Gap 8 5-15 Blood Urea Nitrogen 22 9-23 mg/dL Creatinine 1.09 0.700-1.30 mg/dL Glomerular Filtration Rate Calc 67 >90 mL/min BUN/Creatinine Ratio 20.2 H 10.0-20.0 Serum Glucose 90 74-106 mg/dL Calcium Level 9.5 8.7-10.4 mg/dL Troponin I High Sensitivity 26 </=54 ng/L B-Type Natriuretic Peptide 921.21 0-100 pg/mL Thyroid Stimulating Hormone (TSH) 4.21 0.55-4.78 uIU/mL Assessment Longstanding persistent atrial fibrillation, Stage 3c (off NOAC therapy) Acute on chronic decompensated HFrEF, NYHA class III Hypertension Aortic regurgitation, moderate degree Thoracic aortic aneurysm COPD Cachexia Anxiety Medical noncompliance Plan/Recommendation We will continue with the following plan/recommendations (Dr. León): * Transthoracic echocardiogram from 03/12/2024 reveals EF 35% * Initiate guideline directed medical therapy for CHF as tolerated * Add MRA (spironolactone) with stable potassium * Strict intake and output, daily weights, maintain fluid restriction * [id number] VASC score: 4 points, HAS-BLED score: 1 point * Patient adamantly refuses NOAC therapy * Beta-tan for rate control; up-titrate as tolerated * Avoid antiarrhythmic agent given persistent atrial fibrillation * Cardiac surveillance * Monitor and replete electrolytes as needed * Risk factor modifications, counseled * Adherence to medication regimen Case reviewed and discussed with . The patient is adamantly refusing any kind of anticoagulation therapy. He states that it has caused him epistaxis in the past and now we will not take any kind anticoagulation. Educated the patient on the importance of anticoagulation given his history of atrial fibrillation. Educated the patient on the risk for development of clots and high risk for stroke. The patient verbalizes an understanding and still refuses any anticoagulation. We will recommend for the patient to follow up with his roto mixer operator at the [facility] in [place] within 1-2 weeks post discharge. We would also like to make the recommendation for possible Watchman device placement given that the patient is refusing anticoagulation. Thank you for allowing us to care for this patient. Please call with any questions or concerns. Critical care time spent: 44 minutes This medical document was created using an electronic medical record system with voice recognition software and computerized dictation system. Although this document has been carefully reviewed, there might still be some phonetic and typographical errors. Occasional wrong-word or ``sound-alike substitutions may have occurred due to the inherent limitations of voice recognition software. These areas are purely typographical due to imperfections of the software programs and do not reflect any compromise in the patient's medical care. Please read the chart carefully and recognize, using context, where these substitutions have occurred. Plan discussed with: Patient NYHA Physical activity limitations: Class3(Marked) ordinary (activity causes symtoms) Date of Service: May 08, 2024 Billing Provider: [facility] Cardiology Common Codes: [id number] INP/OBS CARE (High) Cardiology Consultation Codes: [id number] CONSULT <45MIN ISRAEL LEÓN MD 05/08/241817: Family History: Alcoholism G8 FATHER FH: atrial fibrillation G8 MOTHER, Onset:60 years & older GERD G8 MOTHER, Onset:60 years & older Hypertension G8 MOTHER, Onset:50's - 60 Allergies: Coded Allergies: Sulfa Antibiotics (Verified Allergy, Severe, 05/08/24) Sulfabenzamide (Verified Allergy, Intermediate, 05/08/24) Sulfacetamide (Verified Allergy, Intermediate, 05/08/24) Sulfathiazole (Verified Allergy, Intermediate, 05/08/24) Home Meds Active Scripts Metoprolol Succinate (Metoprolol Succinate Er) 25 Mg Tab, 1 TAB PO DAILY, #30 TAB 1 Refill Prov:ZEENAT PRATT MD 04/20/24 Spironolactone (Aldactone) 25 Mg Tab, 12.5 MG PO DAILY for 30 Days, #15 TAB 1 Refill Prov:ZEENAT PRATT MD 04/20/24 Empagliflozin (Jardiance) 10 Mg Tab, 10 MG PO DAILY for 30 Days, #30 TAB 1 Refill Prov:ZEENAT PRATT MD 04/20/24 Furosemide (Furosemide) 20 Mg Tab, 1 TAB PO DAILY for 90 Days, #90 TAB 1 Refill Prov:JEN GOODE 09/21/23 Epinephrine (Anaphylaxis) (Auvi-Q) 0.1 Mg/0.1 Ml Inj, 0.1 MG IJ O PRN for 1 Day, #1 INJ Prov:MARCELO TOWNSEND MD 09/09/23 Famotidine (PEPCID TABLET) 20 Mg Tb, 1 TAB PO BID for 4 Days, #8 TAB 5 Refills Prov:MARCELO TOWNSEND MD 09/09/23 Temazepam (Restoril) 15 Mg Cp, 1 CAP PO QPM, #30 CAP 0 Refills Prov:HERBIE LEI MD 07/31/22 Reported Medications Zolpidem Tartrate (Ambien) 10 Mg Tab, PO QPM, #30 TAB 5 Refills 09/20/23 Tamsulosin Hcl (Flomax) 0.4 Mg Cap, 0.4 MG PO DAILY, CAP 09/04/23 Discontinued Scripts Doxycycline Monohydrate (Doxycycline Monohydrate) 100 Mg Cap, 1 CAP PO BID for 5 Days, #10 CAP 0 Refills Prov:ZEENAT PRATT MD 04/20/24 Plan/Recommendation pt [facility] here for HF refuses DOAC refuses diuretics and BB little we can offer dc home when stable poor prognosis Date of Service: May 08, 2024 Billing Provider: ISRAEL LEÓN MD Cardiology Common Codes: NOT BILLABLE [facility] May 08, 2024 16:14 ISRAEL LEÓN MD May 08, 2024 18:18
--- NOTE | 2024-05-08 16:18 | ECG ---
[facility] Test Date: 2024-05-08 Test Time: 09:30:27 Pat Name: CORONA ZEPEDA Department: ER Room: 0221T Gender: M Records Management Coordinator: GLADIS : 1940 Requested By: ZULMA PATEL Order Number: [id number] Reading MD: Corona Thomas Measurements Intervals Melissa Rate: 124 P: 0 NM: 0 QRS: 18 QRSD: 87 T: -37 QT: 343 QTc: 493 Interpretive Statements Atrial fibrillation Probable LVH with secondary repol abnrm Borderline prolonged QT interval Baseline wander in lead(s) V2 Electronically Signed On 05-11-2024 21:47:08 PST by Cornoa Thomas Please click the below link to view image of tracing.
[2024-05-08] MEDS: ACETAMINOPHEN 325 MG TAB PO PRN (16:52)
[2024-05-08] MEDS: FUROSEMIDE 40 MG/4 ML VIAL IV ONE (18:07)
[2024-05-08] MEDS: HYDROcodone-ACET 5/325MG TAB PO PRN (18:16)
[2024-05-08] MEDS: ALBUTEROL SULF 2.5 MG/0.5ML(0.5%) NEB SOLN NEB SCH (19:01)
[2024-05-08] MEDS: IPRATROPIUM BROM 0.5 MG/2.5ML INH SOL NEB SCH (19:01)
[2024-05-08] MEDS: methylPREDNISolone SOD SUCC 40 MG/ML VL IV SCH (22:17)
[2024-05-08] MEDS: SACUBITRIL-VALSARTAN 24mg/26mg TAB PO SCH (22:17)
[2024-05-08] MEDS: FAMOTIDINE 20 MG TAB PO SCH (22:17)
[2024-05-09] VITALS (15 sets, daily range): BP systolic 107–131; BP diastolic 57–76; PULSE 72–102; RESP 16–20; TEMP 97.4–98.6; O2SAT 96–100
[2024-05-09] MEDS: FUROSEMIDE 20 MG/2 ML VIAL IV SCH (05:47)
[2024-05-09 07:28] LABS: Basophils # (auto) 0 10 ^3/uL (0-0.2); Eosinophils # (auto) 0 10 ^3/uL (0-0.8); Hematocrit 44.7 % (41.0-53.0); Monocytes # (auto) 0.2 10 ^3/uL (0-1.3)
[2024-05-09 07:32] LABS: Hemoglobin 14.5 g/dL (13.5-17.5); Lymphocytes # (auto) 0.3 10 ^3/uL (0.4-5.4); Lymphocytes % (auto) 5.6 % (10.0-50.0); Mean Corpuscular Hemoglobin 33.8 pg (28.0-32.0); Mean Corpuscular Hgb Conc. 32.4 g/dL (32.0-36.0); Mean Corpuscular Volume 104.3 fL (80.0-100.0); Monocytes % (auto) 3.6 % (0.0-12.0); Neutrophils # (auto) 4.6 10 ^3/uL (1.6-8.6); Neutrophils % (auto) 90.8 % (37.0-80.0); Nucleated Red Blood Cells % 0.8 %; Platelet Count (auto) 78 10^3/uL (140-450); Red Blood Cells 4.29 10^6/uL (4.5-5.90); Red Cell Distribution Width 15.8 % (11.8-14.3)
[2024-05-09 08:04] LABS: Alanine Aminotransferase 25 U/L (7-40); Albumin 3.9 g/dL (3.2-4.8); Anion Gap 10 (5-15); Aspartate Aminotransferase 33 U/L (13-40); BUN/Creatinine Ratio 20.8 (10.0-20.0); Bilirubin, Total 0.9 mg/dL (0.2-1.0); Calcium 9.4 mg/dL (8.7-10.4); Carbon Dioxide 24 mmol/L (20-31); Chloride 99 mmol/L (98-107); Potassium 4.8 mmol/L (3.5-5.1); Total Protein 6.3 g/dL (5.7-8.2)
[2024-05-09 08:07] LABS: Alkaline Phosphatase 232 U/L (46-116); Blood Urea Nitrogen 27 mg/dL (9-23); Glucose 136 mg/dL (74-106); Sodium 133 mmol/L (136-145)
--- NOTE | 2024-05-09 08:28 | DVH ---
Bilateral Chest Sonogram Date: 05/09/2024 07:40 AM Clinical history: PLEURAL EFFUSION Technique: Limited sonographic evaluation of the < bilateral >> chest was performed to evaluate for pleural effusion. Finding/Impression: Moderate left and small right pleural effusion.
[2024-05-09] MEDS ORDERED: FUROSEMIDE 20 MG TAB PO SCH (10:00)
[2024-05-09] MEDS: METOPROLOL SUCCINATE XL 50 MG TAB PO SCH (10:13)
[2024-05-09] MEDS: TAMSULOSIN HYDROCHLORIDE 0.4 MG CAP PO SCH (10:13)
[2024-05-09] MEDS: EMPAGLIFLOZIN 10 MG TAB PO SCH (10:14)
[2024-05-09] MEDS: cefTRIAXone 1GM/50ML D5W 50 ML IV SCH (10:18)
[2024-05-09 15:17] LABS: INR 1.41 (0.9-1.15); Partial Thromboplastin Time 31.7 SEC (24.5-34.5); Prothrombin Time 14.4 sec (9.3-11.8)
[2024-05-09 15:53] LABS: Magnesium 2.3 mg/dL (1.6-2.6)
--- NOTE | 2024-05-09 16:05 | DVHPN2 ---
Subjective 83-year-old male with a history of heart failure, COPD, atrial fibrillation, rheumatoid arthritis comes with chief complaint of shortness of breaths and leg swelling He was in atrial fibrillation with rapid ventricular response He has 3+ edema bilaterally in his legs Changes from previous H/P or p: Changes Eyes: No Pain, No Vision change, No Conjunctivae inflammation, No Eyelid inflammation, No Other, No Redness ENT: No Ear pain, No Ear discharge, No Nose pain, No Nose discharge, No Nose congestion, No Mouth pain, No Mouth swelling, No Throat pain, No Throat swelling, No Other Cardiovascular: No Chest Pain; Palpitations; No Orthopnea, No Paroxysmal Noc. Dyspnea, No Edema, No Lt Headedness, No Other Respiratory: Cough; No Dry; Shortness of breath, SOB with excertion; No Wheezing, No Hemoptysis, No Pleuritic Pain, No Sputum, No Other Gastrointestinal: No Nausea, No Vomiting, No Abdominal Pain, No Diarrhea, No Constipation, No Melena, No Hematochezia, No Other Genitourinary: No Dysuria, No Frequency, No Incontinence, No Hematuria, No Retention, No Other Musculoskeletal: No other, No neck pain, No shoulder pain, No arm pain, No back pain, No hand pain, No leg pain, No foot pain Skin: No Rash, No Lesions, No Jaundice, No Bruising, No Other Objective Vitals Vital Signs Date Time Temp Pulse Resp B/P (MAP) Pulse Ox O2 Delivery O2 Flow Rate FiO2 05/09/24 13:00 97.9 76 16 107/74 (85) 97 97.9 05/09/24 12:04 Nasal Cannula* 3 32 Intake/Output Intake and Output 05/09/24 07:00 Intake Total 976.65 ml Output Total 740 ml Balance 236.65 ml Intake Oral 760 ml IV Total 216.65 ml Output Urine Total 740 ml General Appearance: Alert, Oriented X3, Cooperative Lungs: Other (Bilateral rhonchi at the bases) Cardiovascular: Other (Irregularly irregular) Abdomen: Normal bowel sounds, Soft, No tenderness Extremities: Other (3+ edema bilaterally in the lower extremities) Medications Current Medications Medications Dose Ordered Sig/Louie Route Start Time Stop Time Status Last Admin Dose Admin Sodium Chloride 10 ml Q8HR IV 05/08/24 14:00 05/09/24 14:00 10 ML Acetaminophen/ Hydrocodone Bitart 1 tab Q4HP PRN PO 05/08/24 13:30 05/09/24 00:08 1 TAB Ondansetron HCl 4 mg Q4HP PRN IV 05/08/24 13:30 Docusate Sodium 100 mg BIDPRN PRN PO 05/08/24 13:30 Acetaminophen 650 mg Q6HP PRN PO 05/08/24 13:30 05/08/24 16:52 650 MG Nitroglycerin 0.4 mg Q5MINP PRN SL 05/08/24 13:30 Morphine Sulfate 2 mg Q30M PRN IV 05/08/24 13:30 Famotidine 20 mg BID PO 05/08/24 22:00 05/09/24 10:12 20 MG Tamsulosin HCl 0.4 mg DAILY PO 05/09/24 10:00 05/09/24 10:13 0.4 MG Metoprolol Succinate 25 mg DAILY PO 05/09/24 10:00 05/09/24 10:13 25 MG Methylprednisolone Sodium Succinate 40 mg BID IV 05/08/24 22:00 05/09/24 10:12 40 MG Ceftriaxone Sodium 50 ml @ 100 mls/hr DAILY@09 IV 05/09/24 09:00 05/09/24 10:18 100 MLS/HR Ipratropium [place] 0.5 mg Q6HWA NEB 05/08/24 18:00 05/09/24 12:04 0.5 MG Albuterol 2.5 mg Q6HWA NEB 05/08/24 18:00 05/09/24 12:04 2.5 MG Furosemide 20 mg BIDD IV 05/09/24 06:00 05/09/24 05:47 20 MG Empaglifozin 10 mg DAILY PO 05/09/24 10:00 05/09/24 10:14 10 MG Sacubitril/ Valsartan 0.5 tab BID PO 05/08/24 22:00 05/09/24 10:13 0.5 TAB Laboratory Results Laboratory Tests 05/09/24 06:11 Chemistry Test 05/09/24 06:11 Albumin 3.9 g/dL (3.2-4.8) Calcium Level 9.4 mg/dL (8.7-10.4) Total Protein 6.3 g/dL (5.7-8.2) Coagulation Test 05/09/24 14:27 Prothrombin Time 14.4 sec (9.3-11.8) H Prothrombin Time INR 1.41 (0.9-1.15) H Activated Partial Thromboplast Time 31.7 SEC (24.5-34.5) LFT Test 05/09/24 06:11 Alanine Aminotransferase (ALT) 25 U/L (7-40) Alkaline Phosphatase 232 U/L (46-116) H Aspartate Amino Transferase (AST) 33 U/L (13-40) Total Bilirubin 0.9 mg/dL (0.2-1.0) Urinalysis Test 05/08/24 12:41 Urine Color Yellow (Yellow) Urine Clarity Clear (Clear) Urine pH 5.5 (5.0-9.0) Urine Specific [place] 1.029 (1.001-1.035) Urine Protein 1+ (Negative) H Urine Ketones Negative (Negative) Urine Blood Negative /uL (Negative) Urine Nitrite Negative (Negative) Urine Bilirubin Negative (Negative) Urine Urobilinogen Normal mg/dL (Negative) Urine Leukocyte Esterase Negative /uL (Negative) Urine RBC 5 /hpf (0 - 3) Urine Microscopic WBC 3 /HPF (0-3) Urine Squamous Epithelial Cells Few /hpf (<5) Urine Calcium Oxalate Crystals Few (None Seen) Urine Bacteria None seen /hpf (None Seen) Urine Mucus Few (None Seen) Urine Glucose Normal mg/dL (Normal) Microbiology Microbiology Date/Time Source Procedure Growth Status 05/08/24 22:12 Nose MRSA Screen - Final Methicillin Resistant S.aureus Complete Assessment/Plan Assessment/Plan Acute hypoxic respiratory failure Congestive heart failure exacerbation, combined systolic and diastolic Last ejection fraction 35% 2 months ago Atrial fibrillation rapid ventricular response Hypertension Aortic regurgitation, moderate Thoracic aortic aneurysm COPD Cachexia Anxiety Noncompliance Bilateral pleural effusions left more than right Plan IV Lasix Aldactone Cardiology consult Jardiance IV steroids Metoprolol Patient refuses to take anticoagulation Thoracentesis per IR Full code Advance directives discussed for 20 minutes Plan discussed with: Patient Date of Service: May 09, 2024 Billing Provider: HERBIE LEI MD Common Visit Codes: [id number] INP/OBS CARE(HIGH) Secondary Visit Codes: [id number] CARE PLAN 30 MINUTES HERBIE LEI MD May 09, 2024 16:05
[2024-05-10] VITALS (15 sets, daily range): BP systolic 112–124; BP diastolic 62–78; PULSE 62–98; RESP 17–20; TEMP 97.7–98.7; O2SAT 90–99
[2024-05-10 07:51] LABS: Alanine Aminotransferase 22 U/L (7-40); Albumin 3.8 g/dL (3.2-4.8); Anion Gap 8 (5-15); Aspartate Aminotransferase 30 U/L (13-40); BUN/Creatinine Ratio 22.4 (10.0-20.0); Bilirubin, Total 0.8 mg/dL (0.2-1.0); Calcium 8.9 mg/dL (8.7-10.4); Carbon Dioxide 29 mmol/L (20-31); Chloride 98 mmol/L (98-107); Magnesium 2.1 mg/dL (1.6-2.6); Potassium 3.9 mmol/L (3.5-5.1); Total Protein 6.1 g/dL (5.7-8.2)
[2024-05-10 07:58] LABS: Alkaline Phosphatase 217 U/L (46-116); Blood Urea Nitrogen 32 mg/dL (9-23); Glucose 122 mg/dL (74-106); Sodium 135 mmol/L (136-145)
--- NOTE | 2024-05-10 11:43 | DVHPN2 ---
Subjective He is feeling better No shortness a breath He is still has 2+ edema bilaterally in his legs Changes from previous H/P or p: Changes Eyes: No Pain, No Vision change, No Conjunctivae inflammation, No Eyelid inflammation, No Other, No Redness ENT: No Ear pain, No Ear discharge, No Nose pain, No Nose discharge, No Nose congestion, No Mouth pain, No Mouth swelling, No Throat pain, No Throat swelling, No Other Cardiovascular: No Chest Pain; Palpitations; No Orthopnea, No Paroxysmal Noc. Dyspnea, No Edema, No Lt Headedness, No Other Respiratory: Cough; No Dry; Shortness of breath, SOB with excertion; No Wheezing, No Hemoptysis, No Pleuritic Pain, No Sputum, No Other Gastrointestinal: No Nausea, No Vomiting, No Abdominal Pain, No Diarrhea, No Constipation, No Melena, No Hematochezia, No Other Genitourinary: No Dysuria, No Frequency, No Incontinence, No Hematuria, No Retention, No Other Musculoskeletal: No other, No neck pain, No shoulder pain, No arm pain, No back pain, No hand pain, No leg pain, No foot pain Skin: No Rash, No Lesions, No Jaundice, No Bruising, No Other Objective Vitals Vital Signs Date Time Temp Pulse Resp B/P (MAP) Pulse Ox O2 Delivery O2 Flow Rate FiO2 05/10/24 11:05 86 124/78 05/10/24 09:00 98.7 20 99 98.7 05/10/24 07:06 Room Air* 0 21 Intake/Output Intake and Output 05/10/24 07:00 Intake Total 1490 ml Output Total 1175 ml Balance 315 ml Intake Oral 1490 ml Output Urine Total 1175 ml # Bowel Movements 1 General Appearance: Alert, Oriented X3, Cooperative Lungs: Other (Bilateral rhonchi at the bases) Cardiovascular: Other (Irregularly irregular) Abdomen: Normal bowel sounds, Soft, No tenderness Extremities: Other (3+ edema bilaterally in the lower extremities) Medications Current Medications Medications Dose Ordered Sig/Louie Route Start Time Stop Time Status Last Admin Dose Admin Sodium Chloride 10 ml Q8HR IV 05/08/24 14:00 05/10/24 06:00 10 ML Acetaminophen/ Hydrocodone Bitart 1 tab Q4HP PRN PO 05/08/24 13:30 05/10/24 03:04 1 TAB Ondansetron HCl 4 mg Q4HP PRN IV 05/08/24 13:30 Docusate Sodium 100 mg BIDPRN PRN PO 05/08/24 13:30 Acetaminophen 650 mg Q6HP PRN PO 05/08/24 13:30 05/09/24 15:30 650 MG Nitroglycerin 0.4 mg Q5MINP PRN SL 05/08/24 13:30 Morphine Sulfate 2 mg Q30M PRN IV 05/08/24 13:30 Famotidine 20 mg BID PO 05/08/24 22:00 05/10/24 11:03 20 MG Tamsulosin HCl 0.4 mg DAILY PO 05/09/24 10:00 05/10/24 11:14 0.4 MG Metoprolol Succinate 25 mg DAILY PO 05/09/24 10:00 05/10/24 11:05 25 MG Methylprednisolone Sodium Succinate 40 mg BID IV 05/08/24 22:00 05/10/24 11:03 40 MG Ceftriaxone Sodium 50 ml @ 100 mls/hr DAILY@09 IV 05/09/24 09:00 05/10/24 11:03 100 MLS/HR Ipratropium [place] 0.5 mg Q6HWA NEB 05/08/24 18:00 05/10/24 07:06 0.5 MG Albuterol 2.5 mg Q6HWA NEB 05/08/24 18:00 05/10/24 07:06 2.5 MG Furosemide 20 mg BIDD IV 05/09/24 06:00 05/10/24 05:59 20 MG Empaglifozin 10 mg DAILY PO 05/09/24 10:00 05/10/24 11:05 10 MG Sacubitril/ Valsartan 0.5 tab BID PO 05/08/24 22:00 05/10/24 11:14 0.5 TAB Laboratory Results Laboratory Tests 05/09/24 06:11 05/10/24 06:18 Chemistry Test 05/10/24 06:18 Albumin 3.8 g/dL (3.2-4.8) Calcium Level 8.9 mg/dL (8.7-10.4) Magnesium Level 2.1 mg/dL (1.6-2.6) Total Protein 6.1 g/dL (5.7-8.2) Coagulation Test 05/09/24 14:27 Prothrombin Time 14.4 sec (9.3-11.8) H Prothrombin Time INR 1.41 (0.9-1.15) H Activated Partial Thromboplast Time 31.7 SEC (24.5-34.5) LFT Test 05/10/24 06:18 Alanine Aminotransferase (ALT) 22 U/L (7-40) Alkaline Phosphatase 217 U/L (46-116) H Aspartate Amino Transferase (AST) 30 U/L (13-40) Total Bilirubin 0.8 mg/dL (0.2-1.0) Urinalysis Test 05/08/24 12:41 Urine Color Yellow (Yellow) Urine Clarity Clear (Clear) Urine pH 5.5 (5.0-9.0) Urine Specific [place] 1.029 (1.001-1.035) Urine Protein 1+ (Negative) H Urine Ketones Negative (Negative) Urine Blood Negative /uL (Negative) Urine Nitrite Negative (Negative) Urine Bilirubin Negative (Negative) Urine Urobilinogen Normal mg/dL (Negative) Urine Leukocyte Esterase Negative /uL (Negative) Urine RBC 5 /hpf (0 - 3) Urine Microscopic WBC 3 /HPF (0-3) Urine Squamous Epithelial Cells Few /hpf (<5) Urine Calcium Oxalate Crystals Few (None Seen) Urine Bacteria None seen /hpf (None Seen) Urine Mucus Few (None Seen) Urine Glucose Normal mg/dL (Normal) Microbiology Microbiology Date/Time Source Procedure Growth Status 05/08/24 22:12 Nose MRSA Screen - Final Methicillin Resistant S.aureus Complete Assessment/Plan Assessment/Plan Acute hypoxic respiratory failure Congestive heart failure exacerbation, combined systolic and diastolic Last ejection fraction 35% 2 months ago Atrial fibrillation rapid ventricular response Hypertension Aortic regurgitation, moderate Thoracic aortic aneurysm COPD Cachexia Anxiety Noncompliance Bilateral pleural effusions left more than right Plan IV Lasix Aldactone Cardiology consult Jardiance IV steroids Metoprolol Patient refuses to take anticoagulation Thoracentesis per IR Full code Advance directives discussed for 20 minutes 05/10/2024: Continue IV Lasix and p.o. Aldactone Continue the metoprolol for rate control IV steroids Monitor the patient closely and the rest of the management will depend on the hospital course Plan discussed with: Patient Date of Service: May 10, 2024 Billing Provider: HERBIE LEI MD Common Visit Codes: [id number] INP/OBS CARE(HIGH) HERBIE LEI MD May 10, 2024 11:43
--- NOTE | 2024-05-10 14:00 | MEDREC ---
[facility] ASP Intervention Section I [facility] Intervention: Review courses of therapy (MRSA SCREEN POSITIVE CONSIDER ADDING MUPIROCIN 2% OINTMENT 1 APPLICATION IN EACH NOSTRIL BID FOR 5 DAYS ) LISANDRO TONY PHARMACIST May 10, 2024 14:00
--- NOTE | 2024-05-10 15:05 | DVH ---
XY CHEST PORTABLE, HISTORY: POST THORACENTESIS COMPARISON: XY CHEST PORTABLE on DOS: 05/08/24, XY CHEST PORTABLE on DOS: 04/17/24, XY CHEST PORTABLE o n DOS: 03/13/24 XY CHEST PORTABLE on DOS: 05/08/24, XY CHEST PORTABLE on DOS: 04/17/24, XY CHEST PORTABLE on DOS: 03/13 TECHNICAL DATA: 1 view of the chest was obtained. FINDINGS: Lines and tubes: None Cardiomediastinal silhouette: Enlarged Pulmonary vasculature: prominent. Lung expansion: normal Lung airspace: Left basilar consolidation with left pleural effusion. Lung interstitium: normal Pleura: Decrease in left pleural effusion. Pneumothorax: no Bones: Unremarkable Other: no IMPRESSION: Left basilar consolidation with trace left pleural effusion. No pneumothorax is seen.
--- NOTE | 2024-05-10 15:12 | DVH ---
US THORACENTESIS, HISTORY: PLEURAL EFFUSION PROCEDURE: Informed consent was obtained. The patient was seated on the bed. A limited localization u ltrasound of the left thorax was obtained, and the optimal approach was marked on the skin. The area was prepped with chlorhexidine which was allowed to dry and draped in the usual sterile fashion. Time out was performed. The skin and the soft tissues were infiltrated with 1% lidocaine. A 5.5 Lao ce ntesis needle catheter was advanced into left pleural space. Following aspiration of fluid, the [place] ter was advanced and the needle removed. About 550 cc of fluid was drained. Specimen/s was/were sent for appropriate cultures/cytology/cultures and cytology. No immediate complication was identified. FINDINGS: Small left pleural effusion. Aspirated fluid is clear and serous. IMPRESSION: left thoracentesis with 550 mL removed.
[2024-05-10 20:28] LABS: Body Fluid Red Blood Cells 49 CUMM (0-2000); Body Fluid White Blood Cells 389 CUMM (0-200)
[2024-05-10 20:29] LABS: Body Fluid Polymorphonuclear 31 % (0-25)
[2024-05-11] VITALS (12 sets, daily range): BP systolic 111–124; BP diastolic 61–73; PULSE 63–100; RESP 16–20; TEMP 97.4–98.3; O2SAT 91–100
[2024-05-11 07:11] LABS: Chloride 99 mmol/L (98-107); Sodium 138 mmol/L (136-145)
[2024-05-11 07:12] LABS: Anion Gap 8 (5-15); Calcium 9.1 mg/dL (8.7-10.4); Carbon Dioxide 31 mmol/L (20-31)
[2024-05-11 07:17] LABS: BUN/Creatinine Ratio 26.1 (10.0-20.0)
[2024-05-11 07:18] LABS: Blood Urea Nitrogen 36 mg/dL (9-23); Glucose 129 mg/dL (74-106); Magnesium 2.2 mg/dL (1.6-2.6)
[2024-05-11] MEDS ORDERED: SPIR25TA PO (09:59)
[2024-05-11] MEDS ORDERED: FURO1TAB31 PO (09:59)
--- NOTE | 2024-05-11 10:02 | DVHDS2 ---
Discharge Summary Date of Admission May 08, 2024 at 13:22 Date of Discharge: May 11, 2024 Labs/Diagnostic Data: Laboratory Results Test 05/11/24 05:41 05/10/24 14:55 05/10/24 06:18 05/09/24 14:27 Sodium Level 138 mmol/L (136-145) Potassium Level 4.0 mmol/L (3.5-5.1) Chloride Level 99 mmol/L (98-107) Carbon Dioxide Level 31 mmol/L (20-31) Anion Gap 8 (5-15) Blood Urea Nitrogen 36 mg/dL (9-23) Creatinine 1.38 mg/dL (0.700-1.30) Glomerular Filtration Rate Calc 50 mL/min (>90) BUN/Creatinine Ratio 26.1 (10.0-20.0) Serum Glucose 129 mg/dL (74-106) Calcium Level 9.1 mg/dL (8.7-10.4) Magnesium Level 2.2 mg/dL (1.6-2.6) Body Fluid Source Pleural fluid Body Fluid pH 8.0 Body Fluid WBC (Manual) 389 CUMM (0-200) Body Fluid RBC (Manual) 49 CUMM (0-2000) Body Fluid Mononuclear Cells 69 % Body Fluid Polymorphonuclear Cells 31 % (0-25) Total Bilirubin 0.8 mg/dL (0.2-1.0) Aspartate Amino Transferase (AST) 30 U/L (13-40) Alanine Aminotransferase (ALT) 22 U/L (7-40) Alkaline Phosphatase 217 U/L (46-116) Total Protein 6.1 g/dL (5.7-8.2) Albumin 3.8 g/dL (3.2-4.8) Prothrombin Time 14.4 sec (9.3-11.8) Prothrombin Time INR 1.41 (0.9-1.15) Activated Partial Thromboplast Time 31.7 SEC (24.5-34.5) Test 05/09/24 06:11 05/08/24 12:41 05/08/24 10:28 05/08/24 10:07 White Blood Count 5.0 10^3/uL (4.4-10.8) Red Blood Count 4.29 10^6/uL (4.5-5.90) Hemoglobin 14.5 g/dL (13.5-17.5) Hematocrit 44.7 % (41.0-53.0) Mean Corpuscular Volume 104.3 fL (80.0-100.0) Mean Corpuscular Hemoglobin 33.8 pg (28.0-32.0) Mean Corpuscular Hemoglobin Concent 32.4 g/dL (32.0-36.0) Red Cell Distribution Width 15.8 % (11.8-14.3) Platelet Count 78 10^3/uL (140-450) Mean Platelet Volume 11.3 fL (6.9-10.8) Neutrophils (%) (Auto) 90.8 % (37.0-80.0) Lymphocytes (%) (Auto) 5.6 % (10.0-50.0) Monocytes (%) (Auto) 3.6 % (0.0-12.0) Eosinophils (%) (Auto) 0.0 % (0.0-7.0) Basophils (%) (Auto) 0.0 % (0.0-2.0) Neutrophils # (Auto) 4.6 10 ^3/uL (1.6-8.6) Lymphocytes # (Auto) 0.3 10 ^3/uL (0.4-5.4) Monocytes # (Auto) 0.2 10 ^3/uL (0-1.3) Eosinophils # (Auto) 0 10 ^3/uL (0-0.8) Basophils # (Auto) 0 10 ^3/uL (0-0.2) Nucleated Red Blood Cells 0.8 % Urine Color Yellow (Yellow) Urine Clarity Clear (Clear) Urine pH 5.5 (5.0-9.0) Urine Specific [place] 1.029 (1.001-1.035) Urine Protein 1+ (Negative) Urine Ketones Negative (Negative) Urine Blood Negative /uL (Negative) Urine Nitrite Negative (Negative) Urine Bilirubin Negative (Negative) Urine Urobilinogen Normal mg/dL (Negative) Urine Leukocyte Esterase Negative /uL (Negative) Urine RBC 5 /hpf (0 - 3) Urine Microscopic WBC 3 /HPF (0-3) Urine Squamous Epithelial Cells Few /hpf (<5) Urine Calcium Oxalate Crystals Few (None Seen) Urine Bacteria None seen /hpf (None Seen) Urine Mucus Few (None Seen) Urine Glucose Normal mg/dL (Normal) POC Glucose 85 mg/dl (70-106) Troponin I High Sensitivity 26 ng/L (</=54) B-Type Natriuretic Peptide 921.21 pg/mL (0-100) Triglycerides Level 68 mg/dL (< 150) Cholesterol Level 92 mg/dL (< 200) LDL Cholesterol 34 mg/dL (< 100) HDL Cholesterol 46 mg/dL (40-59) Thyroid Stimulating Hormone (TSH) 4.21 uIU/mL (0.55-4.78) Other Laboratory Tests 05/11/24 05:41 05/09/24 06:11 Brief Hx & Hospital Course: Final diagnoses: Acute hypoxic respiratory failure Congestive heart failure exacerbation, combined systolic and diastolic Last ejection fraction 35% 2 months ago Atrial fibrillation rapid ventricular response Hypertension Aortic regurgitation, moderate Thoracic aortic aneurysm COPD Cachexia Anxiety Noncompliance Bilateral pleural effusions left more than right [facility] Thao 83-year-old male with a history of CHF and COPD and atrial fibrillation came with shortness of breaths and edema in his legs He is noncompliant with his fluid restriction He was not taking his Lasix likely showed He was diuresed here and his shortness of breaths improved and his edema improved He is still has some 2+ edema in his legs now but his chest is clear and he is on room air and therefore he will be discharged home Follow up with the PCP as soon as possible Take Lasix 40 mg daily and Aldactone 25 mg daily Bactroban 2% oint bid x 5 days to [facility] Osuna He was educated about fluid restriction to stay on less than 1.5 L a day Resume other home medications Follow up with his PCP as soon as possible Condition at Discharge: Stable Final Diagnosis/Problems List Acute hypoxic respiratory failure Congestive heart failure exacerbation, combined systolic and diastolic Last ejection fraction 35% 2 months ago Atrial fibrillation rapid ventricular response Hypertension Aortic regurgitation, moderate Thoracic aortic aneurysm COPD Cachexia Anxiety Noncompliance Bilateral pleural effusions left more than right SNF Discharge Will this Physician continue t: No Discharge Statement: "Patient was advised to return to the ER or call 911 if any headaches, dizziness, shortness of breath, chest pain, abdominal pain, bleeding, fevers, or worsening of medical condition. Patient was counseled about treatment plan, medications, possible side effects, patientverbalized understanding. All questions were answered to the best of my ability. This discharge took greater then 30 minutes in planning, reviewing documentation, counseling the patient, and discussing with other team members." ASSESSMENT ASSESSMENT Assessment Date of Service: May 11, 2024 Billing Provider: HERBIE LEI MD Common Visit Codes: [id number] DISCH DAY >30min HERBIE LEI MD May 11, 2024 10:02
[2024-05-11] MEDS ORDERED: MUPI2OIN2 EX (10:16)
== END 2024-05-11 18:00 | disposition home or self-care (01) | DRG 291 ==
LOC: ER 09:15 → OVERFLOW 13:22 → TELE-CENTR 22:00
PROVIDERS: ADMIT Internal Medicine Geriatric Medicine; ATTEND Internal Medicine Geriatric Medicine
PROC: 0W9B3ZX Drainage of Left Pleural Cavity, Percutaneous Approach, Diagnostic (ICD-10-PCS; principal; 2024-05-10)
DX: I11.0 Hypertensive heart disease with heart failure (principal); I50.43 Acute on chronic combined systolic (congestive) and diastolic (congestive) heart failure; J96.01 Acute respiratory failure with hypoxia; J44.1 Chronic obstructive pulmonary disease with (acute) exacerbation; R64 Cachexia; I48.11 Longstanding persistent atrial fibrillation; Z68.1 Body mass index [BMI] 19.9 or less, adult; J91.8 Pleural effusion in other conditions classified elsewhere; N40.0 Benign prostatic hyperplasia without lower urinary tract symptoms; I71.20 Thoracic aortic aneurysm, without rupture, unspecified; I35.1 Nonrheumatic aortic (valve) insufficiency; F41.9 Anxiety disorder, unspecified; Z79.899 Other long term (current) drug therapy; Z82.49 Family history of ischemic heart disease and other diseases of the circulatory system; Z87.11 Personal history of peptic ulcer disease; Z87.891 Personal history of nicotine dependence; Z91.199 Patient's noncompliance with other medical treatment and regimen due to unspecified reason
CPT/HCPCS: 36415; 71045; 76604; 76942; 80048; 80053; 80061; 81001; 82962; 83735; 83880; 83986; 84443; 84484; 85025; 85610; 85730; 87081; 87205; 89051; 93005; 94640; 96365; 96375; 99291; G0378

== ENCOUNTER 2024-06-14 18:02 | Inpatient (IN) | payer OTHER, MEDICARE ==
[~2024-06-14] VITALS: Ht 180.3 cm; Wt 51.6 kg
[~2024-06-14 18:02] MED LIST changes: -DOXY1CAP57 PO; -FAMO20TA10 PO; +FURO1TAB31 PO; +MUPI2OIN2 EX
--- NOTE | 2024-06-14 18:29 | ED.PDOC ---
History of Present Illness HPI Comments 83-year-old male with PMHx COPD, CHF, A-Fib, Arthritis, PUD, BPH presents with a chief complaint of SOB x worsened today, but has been present for the past x 1 week. Patient reports tightness in his chest, rates it a 2/10 at this time. Patient was sating at 94% on room air and was placed on 2L/NC in triage. Patient denies home oxygen use. Patient has retractions and labored breathing at this time. Time Seen by MD: 18:22 Primary Care Provider: ga Reviewed Notes: Nurses Notes, Medications, Allergies Allergies: Coded Allergies: Sulfa Antibiotics (Verified Allergy, Severe, 05/08/24) Sulfabenzamide (Verified Allergy, Intermediate, 05/08/24) Sulfacetamide (Verified Allergy, Intermediate, 05/08/24) Sulfathiazole (Verified Allergy, Intermediate, 05/08/24) Home Meds Active Scripts Mupirocin (Pseudomonas Fluores (Mupirocin) 2 % Oin, 2 % EX BID for 5 Days, #15 GM Prov:HERBIE LEI MD 05/11/24 Spironolactone (Aldactone) 25 Mg Tab, 1 TAB PO DAILY, #30 TAB 5 Refills Prov:HERBIE LEI MD 05/11/24 Furosemide (Lasix) 40 Mg Tab, 40 MG PO DAILY for 30 Days, #30 TAB 5 Refills Prov:HERBIE LEI MD 05/11/24 Metoprolol Succinate (Metoprolol Succinate Er) 25 Mg Tab, 1 TAB PO DAILY, #30 TAB 1 Refill Prov:ZEENAT PRATT MD 04/20/24 Empagliflozin (Jardiance) 10 Mg Tab, 10 MG PO DAILY for 30 Days, #30 TAB 1 Refill Prov:ZEENAT PRATT MD 04/20/24 Furosemide (Furosemide) 20 Mg Tab, 1 TAB PO DAILY for 90 Days, #90 TAB 1 Refill Prov:JEN GOODE RESIDENT 09/21/23 Epinephrine (Anaphylaxis) (Auvi-Q) 0.1 Mg/0.1 Ml Inj, 0.1 MG IJ O PRN for 1 Day, #1 INJ Prov:MARCELO TOWNSEND MD 09/09/23 Temazepam (Restoril) 15 Mg Cp, 1 CAP PO QPM, #30 CAP 0 Refills Prov:HERBIE LEI MD 07/31/22 Reported Medications Zolpidem Tartrate (Ambien) 10 Mg Tab, PO QPM, #30 TAB 5 Refills 09/20/23 Tamsulosin Hcl (Flomax) 0.4 Mg Cap, 0.4 MG PO DAILY, CAP 09/04/23 Information Source: Patient Mode of Arrival: Ambulatory Severity: Moderate Timing: Days Duration: Since onset Prehospital treatment: None Past Medical History PAST MEDICAL HISTORY: AFIB, Arthritis, CHF, COPD, PUD Surgical History: Hernia Repair, Tonsillectomy Family History Family History: Reviewed,noncontributory to illness Social History Smoker: Non-Smoker Alcohol: Denies ETOH Use Drugs: Denies Drug Use Lives In: Home Constitutional: reports: weakness; denies: chills, diaphoresis, fatigue, fever, malaise, sweats, others EENTM: denies: blurred vision, double vision, ear bleeding, ear discharge, ear drainage, ear pain, ear ringing, eye pain, eye redness, hearing loss, mouth pain, mouth swelling, nasal discharge, nose bleeding, nose congestion, nose pain, photophobia, tearing, throat pain, throat swelling, voice changes, others Respiratory: reports: shortness of breath; denies: cough, hemoptysis, orth opnea, SOB at rest, SOB with excertion, stridor, wheezing, others Cardiovascular: denies: chest pain, dizzy spells, diaphoresis, Dyspnea on exertion, edema, irregular heart beat, left arm pain, lightheadedness, palpitations, PND, syncope, others Gastrointestinal: denies: abdomen distended, abdominal pain, blood streaked bowels, constipated, diarrhea, dysphagia, difficulty swallowing, hematemesis, melena, nausea, poor appetite, poor fluid intake, rectal bleeding, rectal pain, vomiting, others Genitourinary: denies: burning, dysuria, flank pain, frequency, hematuria, in continence, penile discharge, penile sore, pain, testicle pain, testicle swelling, urgency, others Neurological: denies: dizziness, fainting, headache, left sided numbness, left sided weakness, numbness, paresthesia, pre-existing deficit, right sided numbness, right sided weakness, seizure, speech problems, tingling, tremors, weakness, others Musculoskeletal: denies: back pain, gout, joint pain, joint swelling, muscle pain, muscle stiffness, neck pain, others Integumetry: denies: bruises, change in color, change in hair/nails, dryness, laceration, lesions, lumps, rash, wounds, others Allergic/Immunocompromised: denies: Difficulty Healing, Frequent Infections, Hives, Itching, others Hematologic/Lymphatic: denies: anemia, blood clots, easy bleeding, easy bruising, swollen glands, others Endocrine: denies: excessive hunger, excessive sweating, excessive thirst, excessive urination, flushing, intolerance to cold, intolerance to heat, unexplained weight gain, unexplained weight loss, others Psychiatric: denies: anxiety, bipolar disorder, depression, hopeless, panic disorder, schizophrenia, sleepless, suicidal, others All Other Systems: Reviewed and Negative Physical Exam General Appearance: Moderate Distress, Thin HEENT: Pale Conjuntivae (L), Pale Conjuntivae (R), Pharynx Normal, TMs Normal Neck: Full Range of Motion, Non-Tender, Normal, Normal Inspection Respiratory: Chest Non-Tender, Lungs Clear, No Accessory Muscle Use, No Respiratory Distress, Normal Breath Sounds Cardiovascular: Irregular, No Edema, No JVD, No Murmur, No Gallop Breast Exam: Deferred Gastrointestinal: No Organomegaly, Non Tender, No Pulsatile Mass, Normal Bowel Sounds, Soft Genitalia: Deferred Pelvic: Deferred Rectal: Deferred Extremities: No calf tenderness, Normal capillary refill, No pedal edema Musculoskeletal : Apperance: Normal Neurologic: Alert, software designer II-XII nml as Tested, Motor Weakness, Normal Affect, Normal Mood, No Sensory Deficits Cerebellar Function: Normal Reflexes: Normal Skin: Dry, Normal Color, Warm Lymphatic: No Adenopathy Was a procedure done? Was a procedure done?: No Differential Dx Considerations may include: Eyes weakness, dehydration, atrial fibrillation with rapid response, pneumonia, ACS, NE X-Ray, Labs, Meds, VS Vital Signs Date Time Temp Pulse Resp B/P (MAP) Pulse Ox O2 Delivery O2 Flow Rate FiO2 06/14/24 19:57 85 24 98 Nasal Cannula* 2 28 06/14/24 19:34 97.7 85 24 126/54 (78) 98 97.7 06/14/24 19:00 86 14 125/50 (75) 98 06/14/24 18:45 101 38 98 Nasal Cannula* 2 28 06/14/24 18:30 97.8 101 38 113/59 (77) 98 97.8 06/14/24 18:19 92 06/14/24 18:08 98.7 75 28 149/65 (93) 94 98.7 Lab Test 06/14/24 19:50 06/14/24 19:01 06/14/24 18:33 Range/Units Troponin I High Sensitivity Pending 24 </=54 ng/L Influenza Type A Antigen Negative Negative Influenza Type B Antigen Negative Negative SARS-CoV-2 Antigen (Rapid) Negative NEGATIVE White Blood Count 7.1 4.4-10.8 10^3/uL Red Blood Count 4.23 L 4.5-5.90 10^6/uL Hemoglobin 14.9 13.5-17.5 g/dL Hematocrit 43.5 41.0-53.0 % Mean Corpuscular Volume 102.6 H 80.0-100.0 fL Mean Corpuscular Hemoglobin 35.1 H 28.0-32.0 pg Mean Corpuscular Hemoglobin Concent 34.2 32.0-36.0 g/dL Red Cell Distribution Width 13.9 11.8-14.3 % Platelet Count 112 L 140-450 10^3/uL Mean Platelet Volume 8.9 6.9-10.8 fL Neutrophils (%) (Auto) 79.5 37.0-80.0 % Lymphocytes (%) (Auto) 12.4 10.0-50.0 % Monocytes (%) (Auto) 6.9 0.0-12.0 % Eosinophils (%) (Auto) 0.8 0.0-7.0 % Basophils (%) (Auto) 0.4 0.0-2.0 % Neutrophils # (Auto) 5.7 1.6-8.6 10 ^3/uL Lymphocytes # (Auto) 0.9 0.4-5.4 10 ^3/uL Monocytes # (Auto) 0.5 0-1.3 10 ^3/uL Eosinophils # (Auto) 0.1 0-0.8 10 ^3/uL Basophils # (Auto) 0 0-0.2 10 ^3/uL Nucleated Red Blood Cells 0.1 % D-Dimer, Quantitative 0.81 H 0.0-0.49 mg/L FEU Sodium Level 136 136-145 mmol/L Potassium Level 4.7 3.5-5.1 mmol/L Chloride Level 100 98-107 mmol/L Carbon Dioxide Level 31 20-31 mmol/L Anion Gap 5 5-15 Blood Urea Nitrogen 19 9-23 mg/dL Creatinine 1.16 0.700-1.30 mg/dL Glomerular Filtration Rate Calc 62 >90 mL/min BUN/Creatinine Ratio 16.4 10.0-20.0 Serum Glucose 167 H 74-106 mg/dL Calcium Level 10.3 8.7-10.4 mg/dL B-Type Natriuretic Peptide 463.13 0-100 pg/mL Current Medications Medications (Trade) Dose Ordered Sig/Louie Route Start Time Stop Time Status Last Admin Methylprednisolone Sodium Succinate (Solu Medrol) 125 mg ONCE ONCE IV 06/14/24 18:30 06/14/24 18:32 DC 06/14/24 18:54 The patient's influenza a and influenza B are negative The COVID test is negative The troponin level is negative The CBC and chemistry panel is within normal limits The BNP is elevated at 463.13 The patient's chest x-ray shows pulmonary edema in his small right pleural effusion At this time, the patient was given Solu-Medrol 125 mg IV push Based on the chest x-ray, the patient was given Lasix 40 mg IV push The patient is in atrial fibrillation but is rate is less than 90. The patient was being admitted at this time. The D-dimer is borderline at 0.81 The patient will be admitted Because of the patient's decreased oxygen saturation, the patient was placed on oxygen nasal cannula 2 L Images Reviewed?: Images reviewed and evaluated by me Time of 1ST Reevaluation: 18:52 Reevaluation 1ST: Unchanged Patient Education/Counseling: Diagnosis, Treatment, Prognosis Family Education/Counseling: No Family Present Departure 1 Departure Time of Disposition: 20:00 Impression: Primary Impression: Acute on chronic diastolic heart failure Additional Impression: Atrial fibrillation with RVR Disposition: 09 ADMITTED INPATIENT Admit to: [facility] Condition: Fair Critical Care Note Critical Care Time?: Yes (45 min-critical care time only) Stability Stability form required: Yes Unstable for transfer: Telemetry monitoring (Telemetry monitoring required), ED Physician Assesment (Clinical assesment) Heart Score Heart Score: Heart Score Response (Comments) Value History N/A 0 EKG N/A 0 Age N/A 0 Risk Factors N/A 0 Troponin N/A 0 Total 0 I personally scribed for LEAH HERNÁNDEZ MD ([email or web address]) on 06/14/24 at 18:29. Electronically submitted by Tristan Pinzon ([email or web address]). LEAH HERNÁNDEZ MD Jun 14, 2024 18:29
[2024-06-14 18:45] VITALS: PULSE 101; RESP 38; O2SAT 98
--- NOTE | 2024-06-14 18:50 | ECG ---
[facility] Test Date: 2024-06-14 Test Time: 18:19:24 Pat Name: CORONA ZEPEDA Department: ER Room: 0234 Gender: M Bar Catcher: MACIE : 1940 Requested By: LEAH HERNÁNDEZ Order Number: [id number] Reading MD: Corona Thomas Measurements Intervals Lena Rate: 92 P: 0 NC: 0 QRS: 22 QRSD: 102 T: -14 QT: 362 QTc: 448 Interpretive Statements Atrial fibrillation Left ventricular hypertrophy Borderline T abnormalities, inferior leads Electronically Signed On 06-15-2024 14:11:36 PDT by Corona Thomas Please click the below link to view image of tracing.
[2024-06-14] MEDS: methylPREDNISolone SOD SUCC 125 MG/2 ML VL IV ONE (18:54)
[2024-06-14 19:01] LABS: Basophils # (auto) 0 10 ^3/uL (0-0.2); Eosinophils # (auto) 0.1 10 ^3/uL (0-0.8); Lymphocytes # (auto) 0.9 10 ^3/uL (0.4-5.4); Monocytes # (auto) 0.5 10 ^3/uL (0-1.3); Neutrophils % (auto) 79.5 % (37.0-80.0); Platelet Count (auto) 112 10^3/uL (140-450)
[2024-06-14 19:03] LABS: Basophils % (auto) 0.4 % (0.0-2.0); Eosinophils % (auto) 0.8 % (0.0-7.0); Hematocrit 43.5 % (41.0-53.0); Hemoglobin 14.9 g/dL (13.5-17.5); Lymphocytes % (auto) 12.4 % (10.0-50.0); Mean Corpuscular Hemoglobin 35.1 pg (28.0-32.0); Mean Corpuscular Hgb Conc. 34.2 g/dL (32.0-36.0); Mean Corpuscular Volume 102.6 fL (80.0-100.0); Monocytes % (auto) 6.9 % (0.0-12.0); Neutrophils # (auto) 5.7 10 ^3/uL (1.6-8.6); Nucleated Red Blood Cells % 0.1 %; Red Blood Cells 4.23 10^6/uL (4.5-5.90); Red Cell Distribution Width 13.9 % (11.8-14.3); White Blood Cell 7.1 10^3/uL (4.4-10.8)
[2024-06-14 19:04] LABS: Chloride 100 mmol/L (98-107); Potassium 4.7 mmol/L (3.5-5.1)
[2024-06-14 19:05] LABS: Anion Gap 5 (5-15); Calcium 10.3 mg/dL (8.7-10.4)
[2024-06-14 19:10] LABS: BUN/Creatinine Ratio 16.4 (10.0-20.0); Blood Urea Nitrogen 19 mg/dL (9-23)
--- NOTE | 2024-06-14 19:13 | DVH ---
INDICATION: sob TECHNIQUE: Frontal view of the chest. COMPARISON: XY CHEST PORTABLE on DOS: 05/10/24, XY CHEST PORTABLE on DOS: 05/08/24, XY CHEST PORTABLE o n DOS: 04/17/24, XY CHEST PORTABLE on DOS: 03/13/24, XY CHEST PORTABLE on DOS: 03/11/24 FINDINGS: Small left effusion . The heart and mediastinal contours are grossly unremarkable. There is no evide nce of pleural disease. The lungs are clear. The bony structures of the chest are intact without f racture. IMPRESSION: 1. Small left pleural effusion. Pulmonary edema.
[2024-06-14 19:24] LABS: Carbon Dioxide 31 mmol/L (20-31); Glucose 167 mg/dL (74-106); Sodium 136 mmol/L (136-145)
[2024-06-14 19:33] LABS: COVID19 ANTIGEN SOFIA FIA NEGATIVE (NEGATIVE); Rapid Influenza A Negative (Negative); Rapid Influenza B Negative (Negative)
[2024-06-14 19:57] VITALS: PULSE 85; RESP 24; O2SAT 98
[2024-06-14] MEDS ORDERED: FUROSEMIDE 40 MG/4 ML VIAL IV ONE (20:00)
[2024-06-14] MEDS ORDERED: ONDANSETRON HCL 4 MG/2 ML VIAL IV PRN (20:00)
[2024-06-14 20:03] LABS: Urine Bacteria None Seen /hpf (None Seen)
[2024-06-14 20:11] LABS: Urine Blood TRACE /uL (Negative); Urine Clarity Clear (Clear); Urine Color Yellow (Yellow); Urine Protein, UAD 1+ (Negative); Urine Squamous Epithelial Cell None Seen /hpf (<5); Urine Urobilinogen Normal (Negative); Urine WBC 2 /HPF (0-3); Urine pH 6.5 (5.0-9.0)
[2024-06-14 20:15] VITALS: BP 126/54; PULSE 85; RESP 18; TEMP 97.7; O2SAT 97
[2024-06-14] MEDS: FUROSEMIDE 20 MG/2 ML VIAL IV ONE (20:16)
[2024-06-14 21:22] VITALS: BP 124/50; PULSE 79; RESP 17; TEMP 98.2; O2SAT 97
[2024-06-14 21:30] VITALS: BP 124/50; PULSE 79; RESP 17; TEMP 98.2; O2SAT 97
--- NOTE | 2024-06-14 22:28 | DVHHP2 ---
History of Present Illness Reason for Visit: Shortness for breath History of Present Illness 83-year-old male presents for evaluation of shortness for breath. Patient reports a one-week history of worsening shortness for breath with associated chest tightness. States having a nonproductive cough as well. Denies fever or chills. Past Medical History COPD, AFib, CHF Past Surgical History Tonsillectomy and hernia repair Family History Noncontributory Smoke: No ALCOHOL: none Drugs: None Lives: with Family Review of Systems Review of Systems Review of systems are currently negative otherwise addressed in HPI. Allergies: Coded Allergies: Sulfa Antibiotics (Verified Allergy, Severe, 05/08/24) Sulfabenzamide (Verified Allergy, Intermediate, 05/08/24) Sulfacetamide (Verified Allergy, Intermediate, 05/08/24) Sulfathiazole (Verified Allergy, Intermediate, 05/08/24) Medications Current Medications Medications Dose Ordered Sig/Louie Route Start Time Stop Time Status Last Admin Dose Admin Albuterol 2.5 mg Q6HPRN PRN NEB 06/14/24 20:00 Ipratropium [place] 0.5 mg Q6HPRN PRN NEB 06/14/24 20:00 Empaglifozin 10 mg DAILY PO 06/15/24 10:00 Metoprolol Succinate 25 mg DAILY PO 06/15/24 10:00 Spironolactone 25 mg DAILY PO 06/15/24 10:00 Tamsulosin HCl 0.4 mg QPM PO 06/15/24 18:00 Furosemide 20 mg DAILY IV 06/15/24 10:00 Ondansetron HCl 4 mg Q4HP PRN IV 06/14/24 20:00 Enoxaparin Sodium 40 mg DAILY SC 06/15/24 10:00 Acetaminophen 650 mg Q6HP PRN PO 06/14/24 20:00 Exam Vital Signs Vital Signs Date Time Temp Pulse Resp B/P (MAP) Pulse Ox O2 Delivery O2 Flow Rate FiO2 06/14/24 21:30 98.2 79 17 124/50 (74) 97 98.2 06/14/24 20:15 2.0 06/14/24 20:08 Nasal Cannula* 24 Exam Gen: 83-year-old male in mild distress. Skin: Warm, dry, normal color and texture, no rash. HEENT: Normocephalic atraumatic, mucous membranes moist and pink. Neck: Cervical and supraclavicular nodes normal without enlargement, trachea is midline, thyroid gland is normal without masses. Pulmonary: Clear to auscultation and percussion bilaterally. Cardiac: Regular rate and rhythm. No murmur Abdomen: Soft, nontender, nondistended, bowel sounds present all 4 quadrants, no guarding, no rigidity, no organomegaly. Extremities: No cyanosis, clubbing, no edema Neuro: Cranial nerves II through XII grossly intact, normal affect and speech, no focal motor deficits. Labs/Xrays ORDERING PHYSICIAN: LURDES MOON PROCEDURE(s): ECIDC - ECHO 2D MODE CARDIAC DOP REASON: Evaluate cardiac function ORDER NUMBER(s): [id number], ACCESSION NUMBER(s): [id number] APPROVED REPORT EXAM: Two-dimensional and M-mode echocardiogram with Doppler and color Doppler. Blood Pressure: 127/64 mmHg INDICATION Evaluate RISK FACTORS Height: 5' 10", Weight: 127 DIMENSIONS LVDd 5.6 (3.8-5.7cm) LA (2D) 5.4 (1.9-4.0cm) Aortic Root 4.9 (2.0- 3.7cm) LVDs 4.4 (2.5-4.0cm) LA (MM) (1.9-4.0cm) Aortic Cusp Exc 1.5 (1.5- 2.0cm) EF (%) 45.0 (55-70%) Rt. Atrium 5.7 (1.9-4.0cm) Asc. Aorta cm IVSd 1.2 (0.7-1.1cm) RV (D) (1.8-2.4cm) PWd 1.2 (0.7-1.1cm) Mitral Valve Mitral Mitral Stenosis E wave 0.60m/s MV Mean GR. mmHg E/A ratio 0.0 2D MVA cm2 Aortic Valve Aortic Valve Aortic Stenosis V1 0.80m/s AO Mean GR. 18mmHg V2 2.90m/s AO Peak GR. 35mmHg LVOT Diameter 2.8 (1.8-2.4cm) Doppler KP 1.70cm2 AI P 1/2 Time 464.98ms Pulmonic Valve V2 0.60m/s Tricuspid Valve TR Velocity 2.30m/s RVSP 38mmHg Conclusion MODERATELY DILATED LV AND IS GLOBALLY HYPOKINETIC LV EJECTION FRACTION IS IN RANGE OF 35% DYSKINESIS OF IVS MODERATE DEGREE CALCIFICATION OF AORTIC LEAFLETS MODERATE DEGREE AORTIC REGURGITATION HEAVILY CALCIFIED AORTIC LEAFLETS PEAK AORTIC VALVE GRADIENT IS 35 MM OF HG, MEAN IS 18 MM OF HG AORTICVALVE AREA IS 1.7 CM SQUARE AND IS MILD AORTIC STENSIS SIGNIFICANTLY DILATED LA AND RA LARGE PLEURAL EFFUSION SIGNED BY: CARMELLA GILLETTE MD SIGNED DATE/TIME: 03/12/24 1521 ORDERING PHYSICIAN: LEAH HERNÁNDEZ MD PROCEDURE(s): CXRP - CHEST PORTABLE REASON: sob ORDER NUMBER(s): [id number], ACCESSION NUMBER(s): [id number] INDICATION: sob TECHNIQUE: Frontal view of the chest. COMPARISON: XY CHEST PORTABLE on DOS: 05/10/24, XY CHEST PORTABLE on DOS: 05/08/24, XY CHEST PORTABLE on DOS: 04/17/24, XY CHEST PORTABLE on DOS: 03/13/24, XY CHEST PORTABLE on DOS: 03/11/24 FINDINGS: Small left effusion . The heart and mediastinal contours are grossly unremarkable. There is no evidence of pleural disease. The lungs are clear. The bony structures of the chest are intact without fracture. IMPRESSION: 1. Small left pleural effusion. Pulmonary edema. Labs Test 06/14/24 19:52 06/14/24 19:50 06/14/24 19:01 06/14/24 18:33 Range/Units Urine Color Yellow Yellow Urine Clarity Clear Clear Urine pH 6.5 5.0-9.0 Urine Specific [place] 1.020 1.001-1.035 Urine Protein 1+ H Negative Urine Ketones Negative Negative Urine Blood Trace H Negative /uL Urine Nitrite Negative Negative Urine Bilirubin Negative Negative Urine Urobilinogen Normal Negative mg/dL Urine Leukocyte Esterase Negative Negative /uL Urine RBC 103 0 - 3 /hpf Urine Microscopic WBC 2 0-3 /HPF Urine Squamous Epithelial Cells None seen <5 /hpf Urine Bacteria None seen None Seen /hpf Urine Glucose Normal Normal mg/dL Troponin I High Sensitivity 22 </=54 ng/L Influenza Type A Antigen Negative Negative Influenza Type B Antigen Negative Negative SARS-CoV-2 Antigen (Rapid) Negative NEGATIVE White Blood Count 7.1 4.4-10.8 10^3/uL Red Blood Count 4.23 L 4.5-5.90 10^6/uL Hemoglobin 14.9 13.5-17.5 g/dL Hematocrit 43.5 41.0-53.0 % Mean Corpuscular Volume 102.6 H 80.0-100.0 fL Mean Corpuscular Hemoglobin 35.1 H 28.0-32.0 pg Mean Corpuscular Hemoglobin Concent 34.2 32.0-36.0 g/dL Red Cell Distribution Width 13.9 11.8-14.3 % Platelet Count 112 L 140-450 10^3/uL Mean Platelet Volume 8.9 6.9-10.8 fL Neutrophils (%) (Auto) 79.5 37.0-80.0 % Lymphocytes (%) (Auto) 12.4 10.0-50.0 % Monocytes (%) (Auto) 6.9 0.0-12.0 % Eosinophils (%) (Auto) 0.8 0.0-7.0 % Basophils (%) (Auto) 0.4 0.0-2.0 % Neutrophils # (Auto) 5.7 1.6-8.6 10 ^3/uL Lymphocytes # (Auto) 0.9 0.4-5.4 10 ^3/uL Monocytes # (Auto) 0.5 0-1.3 10 ^3/uL Eosinophils # (Auto) 0.1 0-0.8 10 ^3/uL Basophils # (Auto) 0 0-0.2 10 ^3/uL Nucleated Red Blood Cells 0.1 % D-Dimer, Quantitative 0.81 H 0.0-0.49 mg/L FEU Sodium Level 136 136-145 mmol/L Potassium Level 4.7 3.5-5.1 mmol/L Chloride Level 100 98-107 mmol/L Carbon Dioxide Level 31 20-31 mmol/L Anion Gap 5 5-15 Blood Urea Nitrogen 19 9-23 mg/dL Creatinine 1.16 0.700-1.30 mg/dL Glomerular Filtration Rate Calc 62 >90 mL/min BUN/Creatinine Ratio 16.4 10.0-20.0 Serum Glucose 167 H 74-106 mg/dL Calcium Level 10.3 8.7-10.4 mg/dL B-Type Natriuretic Peptide 463.13 0-100 pg/mL Assessment/Plan Assessment/Plan Assessment Acute on chronic respiratory failure CHF exacerbation Pleural effusion COPD Hypertension Plan Admit the patient to Med surge to the hospitalist STEVEN Lasix Resume home medications Med nebs Continue treatment per orders. Plan discussed with: Patient My Orders Orders - JESSICA CARCAMO Procedure Category Date Status Time Albuterol Medneb PHA 06/14/24 In Process (Ventolin Medneb) 20:00 Ipratropium Medneb PHA 06/14/24 In Process (Atrovent Medneb) 20:00 Empagliflozin PHA 06/15/24 In Process (Jardiance) 10:00 Metoprolol Xl PHA 06/15/24 In Process Succinate (Toprol Xl) 10:00 Spironolactone PHA 06/15/24 In Process (Aldactone) 10:00 Tamsulosin PHA 06/15/24 In Process Hydrochloride (Flomax) 18:00 Furosemide Injection PHA 06/15/24 In Process (Lasix Injection) 10:00 Basic Metabolic Panel LAB 06/15/24 Verified 04:00 Admit ADMIT 06/14/24 Transmitted 19:50 Ondansetron Hcl PHA 06/14/24 In Process (Zofran) 20:00 Enoxaparin Sodium PHA 06/15/24 In Process (Lovenox) 10:00 Complete Blood Count LAB 06/15/24 Verified 04:00 Cardiac DIET 06/15/24 Transmitted Diet-2gna,Lofat,Lochol Breakfast Condition: Stable CHEPE 06/14/24 In Process 19:50 Acetaminophen Tablet PHA 06/14/24 In Process (Tylenol Tablet) 20:00 Bedrest With Bathroom CHEPE 06/14/24 In Process Privileg 19:50 Date of Service: Jun 14, 2024 Billing Provider: JESSICA CARCAMO Common Visit Codes: [id number] INP/OBS CARE (HIGH) JESSICA CARCAMO Jun 14, 2024 22:28
[2024-06-14] MEDS ORDERED: HYDR200T36 PO (22:48)
[2024-06-15] VITALS (11 sets, daily range): BP systolic 103–139; BP diastolic 53–83; PULSE 67–97; RESP 16–22; TEMP 97.6–98.3; O2SAT 91–99
[2024-06-15] MEDS: ACETAMINOPHEN 325 MG TAB PO PRN (00:59)
[2024-06-15] MEDS: guaiFENesin-DM 100/10mg/5ml SYR PO PRN (01:43)
[2024-06-15 05:37] LABS: Basophils # (auto) 0 10 ^3/uL (0-0.2); Basophils % (auto) 0.1 % (0.0-2.0); Eosinophils # (auto) 0 10 ^3/uL (0-0.8); Hematocrit 40.3 % (41.0-53.0); Hemoglobin 13.7 g/dL (13.5-17.5); Lymphocytes # (auto) 0.2 10 ^3/uL (0.4-5.4); Lymphocytes % (auto) 4.7 % (10.0-50.0); Mean Corpuscular Hemoglobin 34.6 pg (28.0-32.0); Mean Corpuscular Volume 101.8 fL (80.0-100.0); Monocytes # (auto) 0.1 10 ^3/uL (0-1.3); Monocytes % (auto) 1.4 % (0.0-12.0); Neutrophils # (auto) 4.2 10 ^3/uL (1.6-8.6); Neutrophils % (auto) 93.8 % (37.0-80.0); Platelet Count (auto) 102 10^3/uL (140-450); Red Blood Cells 3.96 10^6/uL (4.5-5.90); Red Cell Distribution Width 13.7 % (11.8-14.3); White Blood Cell 4.5 10^3/uL (4.4-10.8)
[2024-06-15 05:43] LABS: Anion Gap 5 (5-15); Carbon Dioxide 31 mmol/L (20-31); Chloride 102 mmol/L (98-107); Potassium 4.3 mmol/L (3.5-5.1); Sodium 138 mmol/L (136-145)
[2024-06-15 05:44] LABS: Calcium 9.6 mg/dL (8.7-10.4)
[2024-06-15 05:49] LABS: BUN/Creatinine Ratio 17.7 (10.0-20.0)
[2024-06-15 05:54] LABS: Blood Urea Nitrogen 25 mg/dL (9-23); Glucose 150 mg/dL (74-106)
[2024-06-15] MEDS: ACETAMINOPHEN 325 MG TAB PO ONE (06:10)
[2024-06-15] MEDS: IPRATROPIUM BROM 0.5 MG/2.5ML INH SOL NEB PRN (09:19)
[2024-06-15] MEDS: ALBUTEROL SULF 2.5 MG/0.5ML(0.5%) NEB SOLN NEB PRN (09:19)
[2024-06-15] MEDS: ENOXAPARIN SOD 40 MG/0.4 ML SYRINGE SC SCH (09:35)
[2024-06-15] MEDS: SPIRONOLACTONE 25 MG TAB PO SCH (09:36)
[2024-06-15] MEDS: FUROSEMIDE 20 MG/2 ML VIAL IV SCH (09:37)
[2024-06-15] MEDS: METOPROLOL SUCCINATE XL 50 MG TAB PO SCH (09:37)
[2024-06-15] MEDS: EMPAGLIFLOZIN 10 MG TAB PO SCH (09:38)
--- NOTE | 2024-06-15 11:19 | DVHPN2 ---
Subjective Patient reports having generalized weakness Reviewed: Care Plan, H&P, Labs, Medications Changes from previous H/P or p: No Changes General: Per HPI Objective Vitals Vital Signs Date Time Temp Pulse Resp B/P (MAP) Pulse Ox O2 Delivery O2 Flow Rate FiO2 06/15/24 09:37 122/67 06/15/24 09:37 67 06/15/24 09:30 18 99 06/15/24 09:21 Room Air 06/15/24 09:21 0 21 06/15/24 09:00 98.1 98.1 Intake/Output Intake and Output 06/15/24 07:00 Intake Total 300 ml Output Total 150 ml Balance 150 ml Intake Oral 300 ml Output Urine Total 150 ml # Voids 4 General Appearance: Alert, Oriented X3, Cooperative, No acute distress HEENT: Atraumatic, PERRLA Lungs: Clear to auscultation, Normal air movement Cardiovascular: Normal S1, Normal S2 Genitourinary: No Apparent Abnormalities Musculoskeletal: Normal sensory function, Normal motor function Neuro: Normal gait, Normal speech, Sensation intact, Cranial nerves 3-12 NL Psych/Mental Status: Mental status NL, Mood NL Medications Current Medications Medications Dose Ordered Sig/Louie Route Start Time Stop Time Status Last Admin Dose Admin Albuterol 2.5 mg Q6HPRN PRN NEB 06/14/24 20:00 06/15/24 09:19 2.5 MG Ipratropium [place] 0.5 mg Q6HPRN PRN NEB 06/14/24 20:00 06/15/24 09:19 0.5 MG Metoprolol Succinate 25 mg DAILY PO 06/15/24 10:00 Furosemide 20 mg DAILY IV 06/15/24 10:00 06/15/24 09:37 20 MG Ondansetron HCl 4 mg Q4HP PRN IV 06/14/24 20:00 Enoxaparin Sodium 40 mg DAILY SC 06/15/24 10:00 Acetaminophen 650 mg Q6HP PRN PO 06/14/24 20:00 06/15/24 00:59 650 MG Guaifenesin/ Dextromethorphan 10 ml Q6HPRN PRN PO 06/15/24 01:30 06/15/24 09:34 10 ML Empaglifozin 10 mg DAILY PO 06/16/24 10:00 Hydroxychloroquine Sulfate 200 mg DAILY PO 06/16/24 10:00 Spironolactone 25 mg DAILY PO 06/16/24 10:00 Tamsulosin HCl 0.4 mg QPM PO 06/15/24 18:00 Laboratory Results Laboratory Tests 06/15/24 05:00 Chemistry Test 06/14/24 18:33 06/15/24 05:00 Calcium Level 10.3 mg/dL (8.7-10.4) 9.6 mg/dL (8.7-10.4) Coagulation Test 06/14/24 18:33 D-Dimer, Quantitative 0.81 mg/L FEU (0.0-0.49) H Cardiac Markers Test 06/14/24 18:33 B-Type Natriuretic Peptide 463.13 pg/mL (0-100) Urinalysis Test 06/14/24 19:52 Urine Color Yellow (Yellow) Urine Clarity Clear (Clear) Urine pH 6.5 (5.0-9.0) Urine Specific [place] 1.020 (1.001-1.035) Urine Protein 1+ (Negative) H Urine Ketones Negative (Negative) Urine Blood Trace /uL (Negative) H Urine Nitrite Negative (Negative) Urine Bilirubin Negative (Negative) Urine Urobilinogen Normal mg/dL (Negative) Urine Leukocyte Esterase Negative /uL (Negative) Urine RBC 103 /hpf (0 - 3) Urine Microscopic WBC 2 /HPF (0-3) Urine Squamous Epithelial Cells None seen /hpf (<5) Urine Bacteria None seen /hpf (None Seen) Urine Glucose Normal mg/dL (Normal) Labs and/or images reviewed: Labs reviewed by me, Image(s) reviewed by me Assessment/Plan Assessment/Plan Impression: -acute decompensated systolic heart failure -left pleural effusion -rheumatoid arthritis -cachexia -primary hypertension -atrial fibrillation Plan: -chest ultrasound to evaluate left pleural effusion -restart hydroxychloroquine -IV diuresis -guideline directed medical therapy for heart failure -repeat chest x-ray and labs in a.m. Total time spent with patient discussing and formulating plan of care: 35 minutes. This medical document was created using an electronic medical record system with [employer] dictation system. Although this document has been carefully reviewed, there may still be some phonetic and typographical errors. These areas are purely typographical due to imperfections of the software programs, and do not reflect any compromise in the patient's medical care. Plan discussed with: Patient, Other (RN) My Orders Orders - JANA ORNELAS NP Procedure Category Date Status Time Empagliflozin PHA 06/16/24 In Process (Jardiance) 10:00 Hydroxychloroquine PHA 06/16/24 In Process Tablet (Plaquenil Tab 10:00 Spironolactone PHA 06/16/24 In Process (Aldactone) 10:00 Basic Metabolic Panel LAB 06/16/24 Verified 04:00 Magnesium LAB 06/16/24 Verified 04:00 Chest Ultrasound US 06/15/24 Logged 11:00 Tamsulosin PHA 06/15/24 In Process Hydrochloride (Flomax) 18:00 Date of Service: Jun 15, 2024 Billing Provider: JANA ORNELAS NP Common Visit Codes: [id number] INP/OBS CARE(HIGH) JANA ORNELAS NP Jun 15, 2024 11:19
--- NOTE | 2024-06-15 13:34 | DVH ---
Bilateral Chest Sonogram Date: 06/15/2024 11:25 AM Clinical history: left pleural effusion Technique: Limited sonographic evaluation of the bilateral chest was performed to evaluate for pleur al effusion. Finding/Impression: There is a trace left pleural effusion visualized which is insufficient fluid for performance of thor acentesis. No pleural effusion in the right chest.
[2024-06-15] MEDS: HYDROcodone-ACET 5/325MG TAB PO PRN (17:10)
[2024-06-15] MEDS: TAMSULOSIN HYDROCHLORIDE 0.4 MG CAP PO SCH (17:13)
[2024-06-15] MEDS ORDERED: TAMSULOSIN HYDROCHLORIDE 0.4 MG CAP PO SCH (18:00)
[2024-06-16] VITALS (10 sets, daily range): BP systolic 96–135; BP diastolic 50–77; PULSE 73–90; RESP 18–20; TEMP 97.5–98.5; O2SAT 90–98
[2024-06-16] MEDS: ZOLPIDEM TARTRATE 5 MG TAB PO PRN (00:24)
[2024-06-16 05:59] LABS: Chloride 101 mmol/L (98-107); Potassium 4.3 mmol/L (3.5-5.1)
[2024-06-16 06:00] LABS: Anion Gap 4 (5-15); Carbon Dioxide 31 mmol/L (20-31)
[2024-06-16 06:01] LABS: Calcium 9.4 mg/dL (8.7-10.4)
[2024-06-16 06:05] LABS: BUN/Creatinine Ratio 28.6 (10.0-20.0); Glucose 94 mg/dL (74-106)
[2024-06-16 06:06] LABS: Magnesium 2.1 mg/dL (1.6-2.6)
[2024-06-16 06:15] LABS: Blood Urea Nitrogen 34 mg/dL (9-23); Sodium 136 mmol/L (136-145)
[2024-06-16] MEDS: hydrOXYchloroQUINE SULFATE 200 MG TAB PO SCH (09:07)
[2024-06-16] MEDS: SPIRONOLACTONE 25 MG TAB PO SCH (09:07)
[2024-06-16] MEDS: EMPAGLIFLOZIN 10 MG TAB PO SCH (09:08)
--- NOTE | 2024-06-16 09:15 | CONS ---
Pharmacy Clinical Information: From Potential Fallout Report on CQM HF Application, Yandel Pedro is a 83 year old male with PMH of COPD, Afib, CHF. His inpatient medications include empagliflozin, metoprolol succinate, spironolactone. ACEi/ARB/ARNi not recommended at this time due to hypotension. JONES LUONG PHARMACIST Jun 16, 2024 09:15
[2024-06-16] MEDS ORDERED: ENOXAPARIN SOD 30 MG/0.3 ML SYRINGE SC SCH (10:00)
--- NOTE | 2024-06-16 12:57 | DVHPN2 ---
Reviewed: Care Plan, H&P, Labs, Medications Changes from previous H/P or p: No Changes General: Per HPI Objective Vitals Vital Signs Date Time Temp Pulse Resp B/P (MAP) Pulse Ox O2 Delivery O2 Flow Rate FiO2 06/16/24 12:10 97.8 75 20 113/52 (72) 92 97.8 06/16/24 10:00 Room Air 0.0 06/16/24 10:00 21 Intake/Output Intake and Output 06/16/24 07:00 Intake Total 1150 ml Output Total 600 ml Balance 550 ml Intake Oral 1150 ml Output Urine Total 600 ml # Voids 3 # Bowel Movements 1 General Appearance: Alert, Oriented X3, Cooperative, No acute distress HEENT: Atraumatic, PERRLA Lungs: Clear to auscultation, Normal air movement Cardiovascular: Normal S1, Normal S2 Genitourinary: No Apparent Abnormalities Musculoskeletal: Normal sensory function, Normal motor function Neuro: Normal gait, Normal speech, Sensation intact, Cranial nerves 3-12 NL Psych/Mental Status: Mental status NL, Mood NL Medications Current Medications Medications Dose Ordered Sig/Louie Route Start Time Stop Time Status Last Admin Dose Admin Albuterol 2.5 mg Q6HPRN PRN NEB 06/14/24 20:00 06/15/24 09:19 2.5 MG Ipratropium [place] 0.5 mg Q6HPRN PRN NEB 06/14/24 20:00 06/15/24 09:19 0.5 MG Metoprolol Succinate 25 mg DAILY PO 06/15/24 10:00 06/16/24 09:07 25 MG Furosemide 20 mg DAILY IV 06/15/24 10:00 06/16/24 09:05 20 MG Ondansetron HCl 4 mg Q4HP PRN IV 06/14/24 20:00 Acetaminophen 650 mg Q6HP PRN PO 06/14/24 20:00 06/16/24 06:41 650 MG Guaifenesin/ Dextromethorphan 10 ml Q6HPRN PRN PO 06/15/24 01:30 06/16/24 09:08 10 ML Empaglifozin 10 mg DAILY PO 06/16/24 10:00 06/16/24 09:08 10 MG Hydroxychloroquine Sulfate 200 mg DAILY PO 06/16/24 10:00 06/16/24 09:07 200 MG Spironolactone 25 mg DAILY PO 06/16/24 10:00 06/16/24 09:07 25 MG Tamsulosin HCl 0.4 mg QPM PO 06/15/24 18:00 06/15/24 17:13 0.4 MG Acetaminophen/ Hydrocodone Bitart 1 tab Q6HPRN PRN PO 06/15/24 16:45 06/16/24 09:06 1 TAB Zolpidem Tartrate 5 mg HSPRN PRN PO 06/15/24 22:30 06/16/24 00:24 5 MG Laboratory Results Laboratory Tests 06/15/24 05:00 06/16/24 05:08 Chemistry Test 06/16/24 05:08 Calcium Level 9.4 mg/dL (8.7-10.4) Magnesium Level 2.1 mg/dL (1.6-2.6) Urinalysis Test 06/14/24 19:52 Urine Color Yellow (Yellow) Urine Clarity Clear (Clear) Urine pH 6.5 (5.0-9.0) Urine Specific [place] 1.020 (1.001-1.035) Urine Protein 1+ (Negative) H Urine Ketones Negative (Negative) Urine Blood Trace /uL (Negative) H Urine Nitrite Negative (Negative) Urine Bilirubin Negative (Negative) Urine Urobilinogen Normal mg/dL (Negative) Urine Leukocyte Esterase Negative /uL (Negative) Urine RBC 103 /hpf (0 - 3) Urine Microscopic WBC 2 /HPF (0-3) Urine Squamous Epithelial Cells None seen /hpf (<5) Urine Bacteria None seen /hpf (None Seen) Urine Glucose Normal mg/dL (Normal) Microbiology Microbiology Date/Time Source Procedure Growth Status 06/14/24 23:15 Nose MRSA Screen - Final Complete Labs and/or images reviewed: Labs reviewed by me, Image(s) reviewed by me Assessment/Plan Assessment/Plan Covering for nurse practitioner aPul Gama -acute decompensated systolic heart failure guideline directed therapy Lasix spironolactone Jardiance Trace-left pleural effusion by ultrasound -rheumatoid arthritis hydroxychloroquine -cachexia -primary hypertension -atrial fibrillation Plan discussed with: Patient Date of Service: Jun 16, 2024 Billing Provider: RAY CORCORAN MD Common Visit Codes: [id number] INP/OBS CARE(HIGH) RAY CORCORAN MD Jun 16, 2024 12:57
[2024-06-17] VITALS (14 sets, daily range): BP systolic 96–136; BP diastolic 50–68; PULSE 84–97; RESP 16–20; TEMP 97.1–97.8; O2SAT 93–99
--- NOTE | 2024-06-17 08:16 | DVHPN2 ---
Reviewed: Care Plan, H&P, Labs, Medications Changes from previous H/P or p: No Changes General: Per HPI Objective Vitals Vital Signs Date Time Temp Pulse Resp B/P (MAP) Pulse Ox O2 Delivery O2 Flow Rate FiO2 06/17/24 05:00 97.1 88 18 119/68 (85) 95 97.1 06/16/24 23:05 Room Air* 0 21 Intake/Output Intake and Output 06/17/24 07:00 Intake Total 1300 ml Output Total 600 ml Balance 700 ml Intake Oral 1300 ml Output Urine Total 600 ml # Voids 5 General Appearance: Alert, Oriented X3, Cooperative, No acute distress HEENT: Atraumatic, PERRLA Lungs: Clear to auscultation, Normal air movement Cardiovascular: Normal S1, Normal S2 Genitourinary: No Apparent Abnormalities Musculoskeletal: Normal sensory function, Normal motor function Neuro: Normal gait, Normal speech, Sensation intact, Cranial nerves 3-12 NL Psych/Mental Status: Mental status NL, Mood NL Medications Current Medications Medications Dose Ordered Sig/Louie Route Start Time Stop Time Status Last Admin Dose Admin Albuterol 2.5 mg Q6HPRN PRN NEB 06/14/24 20:00 06/16/24 16:11 2.5 MG Ipratropium [place] 0.5 mg Q6HPRN PRN NEB 06/14/24 20:00 06/15/24 09:19 0.5 MG Metoprolol Succinate 25 mg DAILY PO 06/15/24 10:00 06/16/24 09:07 25 MG Furosemide 20 mg DAILY IV 06/15/24 10:00 06/16/24 09:05 20 MG Ondansetron HCl 4 mg Q4HP PRN IV 06/14/24 20:00 Acetaminophen 650 mg Q6HP PRN PO 06/14/24 20:00 06/16/24 06:41 650 MG Guaifenesin/ Dextromethorphan 10 ml Q6HPRN PRN PO 06/15/24 01:30 06/16/24 09:08 10 ML Empaglifozin 10 mg DAILY PO 06/16/24 10:00 06/16/24 09:08 10 MG Hydroxychloroquine Sulfate 200 mg DAILY PO 06/16/24 10:00 06/16/24 09:07 200 MG Spironolactone 25 mg DAILY PO 06/16/24 10:00 06/16/24 09:07 25 MG Tamsulosin HCl 0.4 mg QPM PO 06/15/24 18:00 06/16/24 17:46 0.4 MG Acetaminophen/ Hydrocodone Bitart 1 tab Q6HPRN PRN PO 06/15/24 16:45 06/17/24 01:40 1 TAB Zolpidem Tartrate 5 mg HSPRN PRN PO 06/15/24 22:30 06/16/24 21:07 5 MG Laboratory Results Laboratory Tests 06/15/24 05:00 06/16/24 05:08 Urinalysis Test 06/14/24 19:52 Urine Color Yellow (Yellow) Urine Clarity Clear (Clear) Urine pH 6.5 (5.0-9.0) Urine Specific [place] 1.020 (1.001-1.035) Urine Protein 1+ (Negative) H Urine Ketones Negative (Negative) Urine Blood Trace /uL (Negative) H Urine Nitrite Negative (Negative) Urine Bilirubin Negative (Negative) Urine Urobilinogen Normal mg/dL (Negative) Urine Leukocyte Esterase Negative /uL (Negative) Urine RBC 103 /hpf (0 - 3) Urine Microscopic WBC 2 /HPF (0-3) Urine Squamous Epithelial Cells None seen /hpf (<5) Urine Bacteria None seen /hpf (None Seen) Urine Glucose Normal mg/dL (Normal) Microbiology Microbiology Date/Time Source Procedure Growth Status 06/14/24 23:15 Nose MRSA Screen - Final Complete Labs and/or images reviewed: Labs reviewed by me, Image(s) reviewed by me Assessment/Plan Assessment/Plan Covering for nurse practitioner Paul Gama -acute decompensated systolic heart failure guideline directed therapy Lasix spironolactone Jardiance Trace-left pleural effusion by ultrasound -rheumatoid arthritis hydroxychloroquine -cachexia -primary hypertension -atrial fibrillation Patient feels better and would like to be discharged home today Plan discussed with: Patient Date of Service: Jun 17, 2024 Billing Provider: RAY CORCORAN MD Common Visit Codes: [id number] INP/OBS CARE(HIGH) RAY CORCORAN MD Jun 17, 2024 08:16
[2024-06-17] MEDS ORDERED: ALBUAER3 IN (08:17)
--- NOTE | 2024-06-17 08:21 | DVHDS2 ---
Discharge Summary Date of Admission Jun 14, 2024 at 19:50 Date of Discharge: Jun 17, 2024 Admitting Diagnosis Shortness of breath Wounds: None Labs/Diagnostic Data: Laboratory Results Test 06/16/24 05:08 06/15/24 05:00 06/14/24 19:52 06/14/24 19:50 Sodium Level 136 mmol/L (136-145) Potassium Level 4.3 mmol/L (3.5-5.1) Chloride Level 101 mmol/L (98-107) Carbon Dioxide Level 31 mmol/L (20-31) Anion Gap 4 (5-15) Blood Urea Nitrogen 34 mg/dL (9-23) Creatinine 1.19 mg/dL (0.700-1.30) Glomerular Filtration Rate Calc 60 mL/min (>90) BUN/Creatinine Ratio 28.6 (10.0-20.0) Serum Glucose 94 mg/dL (74-106) Calcium Level 9.4 mg/dL (8.7-10.4) Magnesium Level 2.1 mg/dL (1.6-2.6) White Blood Count 4.5 10^3/uL (4.4-10.8) Red Blood Count 3.96 10^6/uL (4.5-5.90) Hemoglobin 13.7 g/dL (13.5-17.5) Hematocrit 40.3 % (41.0-53.0) Mean Corpuscular Volume 101.8 fL (80.0-100.0) Mean Corpuscular Hemoglobin 34.6 pg (28.0-32.0) Mean Corpuscular Hemoglobin Concent 34.0 g/dL (32.0-36.0) Red Cell Distribution Width 13.7 % (11.8-14.3) Platelet Count 102 10^3/uL (140-450) Mean Platelet Volume 8.9 fL (6.9-10.8) Neutrophils (%) (Auto) 93.8 % (37.0-80.0) Lymphocytes (%) (Auto) 4.7 % (10.0-50.0) Monocytes (%) (Auto) 1.4 % (0.0-12.0) Eosinophils (%) (Auto) 0.0 % (0.0-7.0) Basophils (%) (Auto) 0.1 % (0.0-2.0) Neutrophils # (Auto) 4.2 10 ^3/uL (1.6-8.6) Lymphocytes # (Auto) 0.2 10 ^3/uL (0.4-5.4) Monocytes # (Auto) 0.1 10 ^3/uL (0-1.3) Eosinophils # (Auto) 0 10 ^3/uL (0-0.8) Basophils # (Auto) 0 10 ^3/uL (0-0.2) Nucleated Red Blood Cells 0.0 % Urine Color Yellow (Yellow) Urine Clarity Clear (Clear) Urine pH 6.5 (5.0-9.0) Urine Specific [place] 1.020 (1.001-1.035) Urine Protein 1+ (Negative) Urine Ketones Negative (Negative) Urine Blood Trace /uL (Negative) Urine Nitrite Negative (Negative) Urine Bilirubin Negative (Negative) Urine Urobilinogen Normal mg/dL (Negative) Urine Leukocyte Esterase Negative /uL (Negative) Urine RBC 103 /hpf (0 - 3) Urine Microscopic WBC 2 /HPF (0-3) Urine Squamous Epithelial Cells None seen /hpf (<5) Urine Bacteria None seen /hpf (None Seen) Urine Glucose Normal mg/dL (Normal) Troponin I High Sensitivity 22 ng/L (</=54) Test 06/14/24 19:01 06/14/24 18:33 Influenza Type A Antigen Negative (Negative) Influenza Type B Antigen Negative (Negative) SARS-CoV-2 Antigen (Rapid) Negative (NEGATIVE) D-Dimer, Quantitative 0.81 mg/L FEU (0.0-0.49) B-Type Natriuretic Peptide 463.13 pg/mL (0-100) Other Laboratory Tests 06/16/24 05:08 06/15/24 05:00 Brief Hx & Hospital Course: -83-year-old male with a history of congestive heart failure hypotension atrial fibrillation came in for shortness of breath. found to have acute exacerbation of systolic CHF. Treated with the guideline directed therapy with Lasix spironolactone Jardiance which are resume usual home medications. Trace left pleural effusion by ultrasound history of rheumatoid arthritis. At the time of discharge afebrile vital signs stable on room air and requesting to be discharged home. Prescription for Ventolin MDI transmitted to the pharmacy reviewed all other home medications secondary. He will follow up with his Dr at the [place] Consults/Reason for consult None Operations or Procedures None Condition at Discharge: Fair Final Diagnosis/Problems List -acute decompensated systolic heart failure guideline directed therapy Lasix spironolactone Jardiance Trace-left pleural effusion by ultrasound -rheumatoid arthritis hydroxychloroquine -cachexia -primary hypertension -atrial fibrillation Discharge Disposition: Home Discharge Instruct/Medications Diet: Cardiac 2g Na,low cholest Activity: Light activity Follow Up/Referral: Resume all previous home medications Follow up with your primary Dr at the [place] Medications: Adonay MUELLER transmitted to the pharmacy Reviewed all home medications 35 (Time taken for discharge summary 35 minutes) Discharge Statement: "Patient was advised to return to the ER or call 911 if any headaches, dizziness, shortness of breath, chest pain, abdominal pain, bleeding, fevers, or worsening of medical condition. Patient was counseled about treatment plan, medications, possible side effects, patientverbalized understanding. All questions were answered to the best of my ability. This discharge took greater then 30 minutes in planning, reviewing documentation, counseling the patient, and discussing with other team members." ASSESSMENT ASSESSMENT Hospital Course Improved Assessment -acute decompensated systolic heart failure guideline directed therapy Lasix spironolactone Jardiance Trace-left pleural effusion by ultrasound -rheumatoid arthritis hydroxychloroquine -cachexia -primary hypertension -atrial fibrillation Date of Service: Jun 17, 2024 Billing Provider: RAY CORCORAN MD Common Visit Codes: [id number]-[id number] DISCH DAY >30min RAY CORCORAN MD Jun 17, 2024 08:21
[2024-06-18 01:00] VITALS: BP 113/67; PULSE 79; RESP 17; TEMP 97.7; O2SAT 94
[2024-06-18 05:00] VITALS: BP 106/57; PULSE 89; RESP 18; TEMP 97.4; O2SAT 93
[2024-06-18 08:00] VITALS: PULSE 90; RESP 18; O2SAT 96
[2024-06-18 09:00] VITALS: BP 121/64; PULSE 90; RESP 18; TEMP 97.5; O2SAT 96
--- NOTE | 2024-06-18 09:17 | DVHPN2 ---
Reviewed: Care Plan, H&P, Labs, Medications Changes from previous H/P or p: No Changes General: Per HPI Objective Vitals Vital Signs Date Time Temp Pulse Resp B/P (MAP) Pulse Ox O2 Delivery O2 Flow Rate FiO2 06/18/24 05:00 97.4 89 18 106/57 (73) 93 97.4 06/17/24 20:00 2.0 24 06/17/24 20:00 Room Air* Intake/Output Intake and Output 06/18/24 07:00 Intake Total 1600 ml Output Total 550 ml Balance 1050 ml Intake Oral 1600 ml Output Urine Total 550 ml # Voids 7 # Bowel Movements 2 General Appearance: Alert, Oriented X3, Cooperative, No acute distress HEENT: Atraumatic, PERRLA Lungs: Clear to auscultation, Normal air movement Cardiovascular: Normal S1, Normal S2 Genitourinary: No Apparent Abnormalities Musculoskeletal: Normal sensory function, Normal motor function Neuro: Normal gait, Normal speech, Sensation intact, Cranial nerves 3-12 NL Psych/Mental Status: Mental status NL, Mood NL Medications Current Medications Medications Dose Ordered Sig/Louie Route Start Time Stop Time Status Last Admin Dose Admin Albuterol 2.5 mg Q6HPRN PRN NEB 06/14/24 20:00 06/17/24 19:35 2.5 MG Ipratropium [place] 0.5 mg Q6HPRN PRN NEB 06/14/24 20:00 06/17/24 19:34 0.5 MG Metoprolol Succinate 25 mg DAILY PO 06/15/24 10:00 06/16/24 09:07 25 MG Furosemide 20 mg DAILY IV 06/15/24 10:00 06/17/24 10:48 20 MG Ondansetron HCl 4 mg Q4HP PRN IV 06/14/24 20:00 Acetaminophen 650 mg Q6HP PRN PO 06/14/24 20:00 06/17/24 22:54 650 MG Guaifenesin/ Dextromethorphan 10 ml Q6HPRN PRN PO 06/15/24 01:30 06/16/24 09:08 10 ML Empaglifozin 10 mg DAILY PO 06/16/24 10:00 06/17/24 10:48 10 MG Hydroxychloroquine Sulfate 200 mg DAILY PO 06/16/24 10:00 06/17/24 10:46 200 MG Spironolactone 25 mg DAILY PO 06/16/24 10:00 06/17/24 10:46 25 MG Tamsulosin HCl 0.4 mg QPM PO 06/15/24 18:00 06/17/24 18:19 0.4 MG Acetaminophen/ Hydrocodone Bitart 1 tab Q6HPRN PRN PO 06/15/24 16:45 06/18/24 06:41 1 TAB Zolpidem Tartrate 5 mg HSPRN PRN PO 06/15/24 22:30 06/17/24 22:52 5 MG Laboratory Results Laboratory Tests 06/15/24 05:00 06/16/24 05:08 Urinalysis Test 06/14/24 19:52 Urine Color Yellow (Yellow) Urine Clarity Clear (Clear) Urine pH 6.5 (5.0-9.0) Urine Specific [place] 1.020 (1.001-1.035) Urine Protein 1+ (Negative) H Urine Ketones Negative (Negative) Urine Blood Trace /uL (Negative) H Urine Nitrite Negative (Negative) Urine Bilirubin Negative (Negative) Urine Urobilinogen Normal mg/dL (Negative) Urine Leukocyte Esterase Negative /uL (Negative) Urine RBC 103 /hpf (0 - 3) Urine Microscopic WBC 2 /HPF (0-3) Urine Squamous Epithelial Cells None seen /hpf (<5) Urine Bacteria None seen /hpf (None Seen) Urine Glucose Normal mg/dL (Normal) Microbiology Microbiology Date/Time Source Procedure Growth Status 06/14/24 23:15 Nose MRSA Screen - Final Complete Labs and/or images reviewed: Labs reviewed by me, Image(s) reviewed by me Assessment/Plan Assessment/Plan Covering for nurse practitioner Paul Gama -acute decompensated systolic heart failure guideline directed therapy Lasix spironolactone Jardiance Trace-left pleural effusion by ultrasound -rheumatoid arthritis hydroxychloroquine -cachexia -primary hypertension -atrial fibrillation Patient was discharged on 06/17/2024 at his request Patient had dizziness and low blood pressure secondary to metoprolol and discharge was held Patient feels better today and would like to go home, advised to hold metoprolol for a week until he follows with the his Dr at the [facility] Plan discussed with: Patient Date of Service: Jun 18, 2024 Billing Provider: RAY CORCORAN MD Common Visit Codes: [id number] INP/OBS CARE(HIGH) RAY CORCORAN MD Jun 18, 2024 09:17
[2024-06-18 10:00] VITALS: O2SAT 96
[2024-06-18 11:36] VITALS: BP 121/64; PULSE 90; RESP 18; TEMP 97.5; O2SAT 96
== END 2024-06-18 14:05 | disposition home or self-care (01) | DRG 291 ==
LOC: ER 18:04 → OVERFLOW 19:50 → EAST 21:22
PROVIDERS: ADMIT Family Medicine; ATTEND Family Medicine
DX: I11.0 Hypertensive heart disease with heart failure (principal); I50.23 Acute on chronic systolic (congestive) heart failure; J96.20 Acute and chronic respiratory failure, unspecified whether with hypoxia or hypercapnia; R64 Cachexia; Z68.1 Body mass index [BMI] 19.9 or less, adult; Z20.822 Contact with and (suspected) exposure to COVID-19; J44.9 Chronic obstructive pulmonary disease, unspecified; N40.0 Benign prostatic hyperplasia without lower urinary tract symptoms; M06.9 Rheumatoid arthritis, unspecified; I48.91 Unspecified atrial fibrillation; Z87.11 Personal history of peptic ulcer disease; Z88.2 Allergy status to sulfonamides
CPT/HCPCS: 36415; 71045; 76604; 80048; 81001; 82962; 83735; 83880; 84484; 85025; 85379; 87081; 87426; 87804; 93005; 94640; 96374; 96375; G0378

== ENCOUNTER 2024-07-11 11:30 | Inpatient (IN) | payer OTHER, MEDICARE ==
[~2024-07-11] VITALS: Ht 180.3 cm; Wt 53.0 kg
[~2024-07-11 11:30] MED LIST changes: +ALBUAER3 IN; -FURO20TA3 PO; +HYDR-4902 PO; +HYDR200T36 PO; -MUPI2OIN2 EX; +RIVA20TA PO; -TEMA15CA2 PO
--- NOTE | 2024-07-11 11:41 | ED.PDOC ---
History of Present Illness HPI Comments 83 y/o M, BIBA, with PMHx of COPD, AFib, and CHF presents to the ED for CC of generalized weakness. EMS reports, patient is coming from home where he complains of generalized weakness and malaise x1week with worsening exacerbation in the last 24hrs. Patient denies fever, chills, nausea, vomiting, headache, or fatigue. No other symptoms or modifying factors present at this time. Time Seen by MD: 11:35 Reviewed Notes: Nurses Notes, Retail Sales Specialist Notes, Medications, Allergies Allergies: Coded Allergies: Sulfa Antibiotics (Verified Allergy, Unknown, 06/26/24) Metoprolol (Verified Adverse Reaction, Severe, 06/27/24) "don't feel very good" per patient Sitagliptin (Verified Adverse Reaction, Severe, 06/27/24) Pt states it made him "feel not very good" Home Meds Active Scripts Hydroxychloroquine Sulfate (Hydroxychloroquine Sulfat) 200 Mg Tab, 200 MG PO DAILY, #30 TAB 5 Refills Prov:CONNIE COLON MD 07/01/24 Hydrocodone-Acetaminophen (Hydrocodone Bitartrate/AC 5-325 mg) 1 Tab Tab, 1 TAB PO Q6HPRN PRN, #20 TAB Prov:CONNIE COLON MD 07/01/24 Rivaroxaban (XARELTO) 20 Mg Tab, 1 TAB PO QPM, #30 TAB 5 Refills Prov:CONNIE COLON MD 07/01/24 Information Source: Patient, Emergency Med Personnel Mode of Arrival: EMS Severity: Moderate Timing: Days Duration: Since onset Past Medical History PAST MEDICAL HISTORY: AFIB, CHF, COPD Surgical History: Hernia Repair, Tonsillectomy Surgical History (Other): GASTRIC ULCER Family History Family History: Unknown Social History Smoker: Non-Smoker Alcohol: Denies ETOH Use Drugs: Denies Drug Use Lives In: Home Constitutional: reports: malaise, weakness; denies: chills, diaphoresis, fatigue, fever, sweats, others EENTM: denies: blurred vision, double vision, ear bleeding, ear discharge, ear drainage, ear pain, ear ringing, eye pain, eye redness, hearing loss, mouth pain, mouth swelling, nasal discharge, nose bleeding, nose congestion, nose pain, photophobia, tearing, throat pain, throat swelling, voice changes, others Respiratory: denies: cough, hemoptysis, orthopnea, SOB at rest, shortness of breath, SOB with excertion, stridor, wheezing, others Cardiovascular: denies: chest pain, dizzy spells, diaphoresis, Dyspnea on exertion, edema, irregular heart beat, left arm pain, lightheadedness, palpitations, PND, syncope, others Gastrointestinal: denies: abdomen distended, abdominal pain, blood streaked bowels, constipated, diarrhea, dysphagia, difficulty swallowing, hematemesis, melena, nausea, poor appetite, poor fluid intake, rectal bleeding, rectal pain, vomiting, others Genitourinary: denies: burning, dysuria, flank pain, frequency, hematuria, incontinence, penile discharge, penile sore, pain, testicle pain, testicle swelling, urgency, others Neurological: denies: dizziness, fainting, headache, left sided numbness, left sided weakness, numbness, paresthesia, pre-existing deficit, right sided numbness, right sided weakness, seizure, speech problems, tingling, tremors, weakness, others Musculoskeletal: denies: back pain, gout, joint pain, joint swelling, muscle pain, muscle stiffness, neck pain, others Integumetry: denies: bruises, change in color, change in hair/nails, dryness, laceration, lesions, lumps, rash, wounds, others Allergic/Immunocompromised: denies: Difficulty Healing, Frequent Infections, Hives, Itching, others Hematologic/Lymphatic: denies: anemia, blood clots, easy bleeding, easy bruising, swollen glands, others Endocrine: denies: excessive hunger, excessive sweating, excessive thirst, excessive urination, flushing, intolerance to cold, intolerance to heat, unexplained weight gain, unexplained weight loss, others Psychiatric: denies: anxiety, bipolar disorder, depression, hopeless, panic disorder, schizophrenia, sleepless, suicidal, others All Other Systems: Reviewed and Negative Physical Exam General Appearance: Moderate Distress, Thin HEENT: Pale Conjuntivae (L), Pale Conjuntivae (R), Pharynx Normal, TMs Normal Neck: Full Range of Motion, Non-Tender, Normal, Normal Inspection Respiratory: Chest Non-Tender, Lungs Clear, No Accessory Muscle Use, No Respiratory Distress, Normal Breath Sounds Cardiovascular: No Edema, No JVD, No Murmur, No Gallop, Normal Peripheral Pulses, Regular Rate/Rhythm Breast Exam: Deferred Gastrointestinal: No Organomegaly, Non Tender, No Pulsatile Mass, Normal Bowel Sounds, Soft Genitalia: Deferred Pelvic: Deferred Rectal: Deferred Extremities: No calf tenderness, Normal capillary refill, No pedal edema Musculoskeletal : Apperance: Normal Neurologic: Alert, dough machine operator II-XII nml as Tested, Motor Weakness, Normal Affect, Normal Mood, No Sensory Deficits Cerebellar Function: Unable to Test Reflexes: Normal Skin: Dry, Pallor, Warm Lymphatic: No Adenopathy Was a procedure done? Was a procedure done?: No EKG EKG : Pulse Rate (adult): 81 [place]: Normal Cardiac Rhythm: Afib Block: None Hypertrophy: LVH ST: Normal Differential Dx Considerations may include: GENERALIZED WEAKNESS, MALAISE, HYPOGLYCEMIA, ELECTROLYTE IMBALANCE X-Ray, Labs, Meds, VS Vital Signs Date Time Temp Pulse Resp B/P (MAP) Pulse Ox O2 Delivery O2 Flow Rate FiO2 07/11/24 11:55 108 22 95 Room Air* 0 21 07/11/24 11:55 98.0 108 22 128/78 (95) 95 98.0 07/11/24 11:44 98.0 108 22 128/78 (95) 95 98.0 07/11/24 11:41 81 07/11/24 11:36 81 Lab Test 07/11/24 11:52 Range/Units White Blood Count 10.9 H 4.4-10.8 10^3/uL Red Blood Count 4.33 L 4.5-5.90 10^6/uL Hemoglobin 14.8 13.5-17.5 g/dL Hematocrit 43.9 41.0-53.0 % Mean Corpuscular Volume 101.4 H 80.0-100.0 fL Mean Corpuscular Hemoglobin 34.2 H 28.0-32.0 pg Mean Corpuscular Hemoglobin Concent 33.7 32.0-36.0 g/dL Red Cell Distribution Width 13.7 11.8-14.3 % Platelet Count 151 140-450 10^3/uL Mean Platelet Volume 8.6 6.9-10.8 fL Neutrophils (%) (Auto) 88.9 H 37.0-80.0 % Lymphocytes (%) (Auto) 5.4 L 10.0-50.0 % Monocytes (%) (Auto) 5.1 0.0-12.0 % Eosinophils (%) (Auto) 0.1 0.0-7.0 % Basophils (%) (Auto) 0.5 0.0-2.0 % Neutrophils # (Auto) 9.7 H 1.6-8.6 10 ^3/uL Lymphocytes # (Auto) 0.6 0.4-5.4 10 ^3/uL Monocytes # (Auto) 0.6 0-1.3 10 ^3/uL Eosinophils # (Auto) 0 0-0.8 10 ^3/uL Basophils # (Auto) 0.1 0-0.2 10 ^3/uL Nucleated Red Blood Cells 0.0 % Sodium Level 136 136-145 mmol/L Potassium Level 4.4 3.5-5.1 mmol/L Chloride Level 99 98-107 mmol/L Carbon Dioxide Level 29 20-31 mmol/L Anion Gap 8 5-15 Blood Urea Nitrogen 24 H 9-23 mg/dL Creatinine 1.28 0.700-1.30 mg/dL Glomerular Filtration Rate Calc 55 >90 mL/min BUN/Creatinine Ratio 18.8 10.0-20.0 Serum Glucose 91 74-106 mg/dL Calcium Level 10.5 H 8.7-10.4 mg/dL The patient's CBC shows an elevated white blood cell count of 10.9 The rest of the CBC is within normal limits The chemistry panel shows a BUN of 24 The rest of the chemistry panel is within normal limits An IV Hep-Lock was established The patient was being given a normal saline bolus The patient was being admitted at this time The patient understands and agrees with the management. Time of 1ST Reevaluation: 12:05 Reevaluation 1ST: Unchanged Patient Education/Counseling: Diagnosis, Treatment, Prognosis Family Education/Counseling: No Family Present Departure 1 Departure Time of Disposition: 15:15 Impression: Primary Impression: Generalized weakness Additional Impression: Failure to thrive Qualified Codes: R62.7 - Adult failure to thrive Disposition: ADMITTED INPATIENT Admit to: Med Surg Condition: Fair Critical Care Note Critical Care Time?: No Stability Stability form required: No Heart Score Heart Score: Heart Score Response (Comments) Value History N/A 0 EKG N/A 0 Age N/A 0 Risk Factors N/A 0 Troponin N/A 0 Total 0 I personally scribed for LEAH HERNÁNDEZ MD ([email or web address]) on 07/11/24 at 11:41. Electronically submitted by Brittany Baugh ([email or web address]). LEAH HERNÁNDEZ MD Jul 11, 2024 11:41
[2024-07-11 11:55] VITALS: PULSE 108; RESP 22; O2SAT 95
[2024-07-11 12:22] LABS: Chloride 99 mmol/L (98-107); Potassium 4.4 mmol/L (3.5-5.1); Sodium 136 mmol/L (136-145)
[2024-07-11 12:23] LABS: Anion Gap 8 (5-15); Carbon Dioxide 29 mmol/L (20-31); Eosinophils # (auto) 0 10 ^3/uL (0-0.8); Eosinophils % (auto) 0.1 % (0.0-7.0); Hemoglobin 14.8 g/dL (13.5-17.5); Lymphocytes # (auto) 0.6 10 ^3/uL (0.4-5.4); Monocytes # (auto) 0.6 10 ^3/uL (0-1.3)
[2024-07-11 12:24] LABS: Basophils # (auto) 0.1 10 ^3/uL (0-0.2); Basophils % (auto) 0.5 % (0.0-2.0); Hematocrit 43.9 % (41.0-53.0); Lymphocytes % (auto) 5.4 % (10.0-50.0); Mean Corpuscular Hemoglobin 34.2 pg (28.0-32.0); Mean Corpuscular Hgb Conc. 33.7 g/dL (32.0-36.0); Mean Corpuscular Volume 101.4 fL (80.0-100.0); Monocytes % (auto) 5.1 % (0.0-12.0); Neutrophils # (auto) 9.7 10 ^3/uL (1.6-8.6); Neutrophils % (auto) 88.9 % (37.0-80.0); Platelet Count (auto) 151 10^3/uL (140-450); Red Blood Cells 4.33 10^6/uL (4.5-5.90); Red Cell Distribution Width 13.7 % (11.8-14.3); White Blood Cell 10.9 10^3/uL (4.4-10.8)
[2024-07-11 12:27] LABS: Calcium 10.5 mg/dL (8.7-10.4)
[2024-07-11 12:29] LABS: BUN/Creatinine Ratio 18.8 (10.0-20.0); Glucose 91 mg/dL (74-106)
[2024-07-11 12:34] LABS: Blood Urea Nitrogen 24 mg/dL (9-23)
[2024-07-11] MEDS ORDERED: DOCUSATE SOD 100 MG CAP PO PRN (14:30)
[2024-07-11] MEDS ORDERED: ALBUTEROL SULF 2.5 MG/0.5ML(0.5%) NEB SOLN NEB PRN (14:30)
[2024-07-11] MEDS ORDERED: NITROGLYCERIN 0.4 MG SL TAB SL PRN (14:30)
--- NOTE | 2024-07-11 14:34 | DVHHP2 ---
History of Present Illness Reason for Visit: Generalized weakness and tired History of Present Illness 83-year-old male with a complex medical history including thoracic aortic aneurysm (5 cm) no abd pain no tearing sensation in abd, chronic obstructive pulmonary disease (COPD), systolic heart failure (HFrEF, EF 10-15%), pulmonary embolism (PE) on Xarelto, rheumatoid arthritis, benign prostatic hyperplasia (BPH), gastric ulcer, and prior hernia repair, who presents with generalized weakness, shortness of breath, and lightheadedness. The patient reports feeling weak for approximately one week, with worsening dyspnea and lightheadedness yesterday, prompting his visit to the emergency department. He denies chest pain, abdominal pain, vomiting, diarrhea, melena, hematochezia, leg swelling, or calf pain. He states he has been compliant with his medications, including anticoagulation following his recent PE diagnosis during hospitalization on July 01, 2024. He also had an echocardiogram completed in June 2024, which revealed a severely reduced ejection fraction of 10-15%. On evaluation in the ED, he was hemodynamically stable. Labs revealed mild anemia (Hgb 10.9), BUN 24, and calcium 10.5. No imaging was obtained prior to admission. Given his significant cardiac history and respiratory symptoms, he is being admitted for management of a likely COPD exacerbation with consideration of heart failure decompensation contributing to his symptoms. Steroids will be initiated, and chronic heart failure medications continued as tolerated and will order ct angio chest. Past Medical History see hpi above Past Surgical History see hpi above Family History Reviewed, non-contributory to the management of this case. Past Social History The patient lives at home, denies smoking, alcohol or illicit drugs abuse. Review of Systems Constitutional: Yes: Weakness, Malaise; No: Fever, Chills, Sweats, Other Eyes: No: Pain, Vision change, Conjunctivae inflammation, Eyelid inflammation, Other, Redness ENT: No: Ear pain, Ear discharge, Nose pain, Nose discharge, Nose congestion, Mouth pain, Mouth swelling, Throat pain, Throat swelling, Other Respiratory: Shortness of breath, SOB with excertion; No: Cough, Dry, Wheezing, Hemoptysis, Pleuritic Pain, Sputum, Wheezing, Other Cardiovascular: No: Chest Pain, Palpitations, Orthopnea, Paroxysmal Noc. Dyspnea, Edema, Lt Headedness, Other Gastrointestinal: No: Nausea, Vomiting, Abdominal Pain, Diarrhea, Constipation, Melena, Hematochezia, Other Genitourinary: No Dysuria, No Frequency, No Incontinence, No Hematuria, No Ret ention, No Other Musculoskeletal: No: other, neck pain, shoulder pain, arm pain, back pain, hand pain, leg pain, foot pain Skin: No: Rash, Lesions, Jaundice, Bruising, Other Neurological: Weakness; No: Numbness, Incoordination, Change in speech, Confusion, Seizures, Other Allergies: Coded Allergies: Sulfa Antibiotics (Verified Allergy, Unknown, 06/26/24) Metoprolol (Verified Adverse Reaction, Severe, 06/27/24) "don't feel very good" per patient Sitagliptin (Verified Adverse Reaction, Severe, 06/27/24) Pt states it made him "feel not very good" Exam Vital Signs Vital Signs Date Time Temp Pulse Resp B/P (MAP) Pulse Ox O2 Delivery O2 Flow Rate FiO2 07/11/24 11:55 108 22 95 Room Air* 0 21 07/11/24 11:55 98.0 128/78 (95) 98.0 General Appearance: Alert, Oriented X3, Cooperative, mild distress HEENT: Atraumatic, PERRLA, EOMI, Mucous membr. moist/pink Respiratory: Other (Diminished lung sounds throughout) Cardiovascular: Regular rate, Normal S1, Normal S2, No murmurs Abdominal: Normal bowel sounds, Soft, No tenderness, No hepatospenomegaly, No masses Extremities: No clubbing, No cyanosis, No edema, Normal pulses, No tenderness/swelling Skin: No rashes, No breakdown, No significant lesion Neuro: Normal gait, Normal speech, Strength at 5/5 X4 ext, Normal tone, Sensation intact, Cranial nerves 3-12 NL Psych/Mental Status: Mental status NL, Mood NL Labs/Xrays No imaging completed prior to admission Labs Test 07/11/24 11:52 Range/Units White Blood Count 10.9 H 4.4-10.8 10^3/uL Red Blood Count 4.33 L 4.5-5.90 10^6/uL Hemoglobin 14.8 13.5-17.5 g/dL Hematocrit 43.9 41.0-53.0 % Mean Corpuscular Volume 101.4 H 80.0-100.0 fL Mean Corpuscular Hemoglobin 34.2 H 28.0-32.0 pg Mean Corpuscular Hemoglobin Concent 33.7 32.0-36.0 g/dL Red Cell Distribution Width 13.7 11.8-14.3 % Platelet Count 151 140-450 10^3/uL Mean Platelet Volume 8.6 6.9-10.8 fL Neutrophils (%) (Auto) 88.9 H 37.0-80.0 % Lymphocytes (%) (Auto) 5.4 L 10.0-50.0 % Monocytes (%) (Auto) 5.1 0.0-12.0 % Eosinophils (%) (Auto) 0.1 0.0-7.0 % Basophils (%) (Auto) 0.5 0.0-2.0 % Neutrophils # (Auto) 9.7 H 1.6-8.6 10 ^3/uL Lymphocytes # (Auto) 0.6 0.4-5.4 10 ^3/uL Monocytes # (Auto) 0.6 0-1.3 10 ^3/uL Eosinophils # (Auto) 0 0-0.8 10 ^3/uL Basophils # (Auto) 0.1 0-0.2 10 ^3/uL Nucleated Red Blood Cells 0.0 % Sodium Level 136 136-145 mmol/L Potassium Level 4.4 3.5-5.1 mmol/L Chloride Level 99 98-107 mmol/L Carbon Dioxide Level 29 20-31 mmol/L Anion Gap 8 5-15 Blood Urea Nitrogen 24 H 9-23 mg/dL Creatinine 1.28 0.700-1.30 mg/dL Glomerular Filtration Rate Calc 55 >90 mL/min BUN/Creatinine Ratio 18.8 10.0-20.0 Serum Glucose 91 74-106 mg/dL Calcium Level 10.5 H 8.7-10.4 mg/dL Assessment/Plan Assessment/Plan 83-year-old male with severe HFrEF, COPD, thoracic aneurysm, and recent PE, presenting with weakness, SOB, and lightheadedness. acute COPD Exacerbation without acute hypoxia ordered cxr fu results Plan: IV steroids (Solu-Medrol 40 mg IV q8h) Albuterol/ipratropium nebulizers q4 atc Monitor respiratory status Pulmonary consult if no improvement acute community acquired bacterial pna cxr ordered Levaquin ppx for now acute Systolic Heart Failure EF 10-15%, possible decompensation Plan: Monitor for signs of volume overload Daily weights, strict I/Os BNP and repeat basic labs Continue xarelto Cardiology consult for optimization chronic problems Pulmonary embolism, cont xarelto Ascending thoracic aortic aneurysm 5 cm monitor Atrial fibrillation cont home xarelto COPD Systolic CHF with EF of 10-15% with severe cardiomyopathy, Rheumatoid arthritis bph cont flomax gastric ulcer anemia FEn/ppx Cautious IVF if needed, given HFrEF Cardiac diet VTE: On therapeutic Xarelto GI: Continue PPI DISPOSITION Admit to [facility] for management of COPD exacerbation and evaluation of possible heart failure decompensation. Cardiology to follow for severe HFrEF. Continue home medications and supportive care. Plan discussed with: Patient Date of Service: Jul 11, 2024 Billing Provider: CARMEN PENA DNP Common Visit Codes: [id number] INP/OBS CARE (HIGH) CARMEN PENA DNP Jul 11, 2024 14:34
--- NOTE | 2024-07-11 15:19 | DVH ---
CHEST RADIOGRAPH Indication: eval for sob Technique: Single frontal view of the chest was obtained Comparison: XY CHEST XRAY 1 VIEW on DOS: 06/26/24 FINDINGS: Lines and Tubes: None Lungs: Left basilar pneumonia Pleura: No effusion. No pneumothorax. Cardiomediastinal contours: Unremarkable Bones: No acute osseous abnormality. IMPRESSION: Left basilar pneumonia
[2024-07-11] MEDS: IPRATROPIUM BROM 0.5 MG/2.5ML INH SOL NEB ONE (15:57)
[2024-07-11] MEDS: ALBUTEROL SULF 2.5 MG/0.5ML(0.5%) NEB SOLN NEB ONE (15:57)
[2024-07-11 16:40] VITALS: BP 128/78; PULSE 108; RESP 24; TEMP 98; O2SAT 93
[2024-07-11] MEDS: methylPREDNISolone SOD SUCC 125 MG/2 ML VL IV ONE (17:19)
[2024-07-11] MEDS: HYDROcodone-ACET 5/325MG TAB PO PRN (17:27)
[2024-07-11 17:50] VITALS: PULSE 110; PULSE 112; RESP 18; O2SAT 98; O2SAT 99
[2024-07-11] MEDS: METOPROLOL TARTRATE 1MG/1ML-5ML VIAL IV ONE (18:06)
[2024-07-11] MEDS: IPRATROPIUM BROM 0.5 MG/2.5ML INH SOL NEB SCH (18:38)
[2024-07-11 18:54] LABS: Urine Bacteria None Seen /hpf (None Seen)
[2024-07-11] MEDS: IOHEXOL 350 MG/ML 100ML IJ ONE (19:03)
[2024-07-11] MEDS: PANTOPRAZOLE 40 MG/10 ML VIAL INJ IV ONE (19:03)
--- NOTE | 2024-07-11 19:07 | ECG ---
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
[2024-07-11 19:10] LABS: Urine Blood Negative /uL (Negative); Urine Clarity Turbid (Clear); Urine Color Yellow (Yellow); Urine Mucus FEW (None Seen); Urine Protein, UAD 1+ (Negative); Urine Squamous Epithelial Cell FEW /hpf (<5); Urine Urobilinogen Normal (Negative); Urine WBC 10 /HPF (0-3); Urine pH 5.5 (5.0-9.0)
[2024-07-11] MEDS: RIVAROXABAN 15 MG TAB PO SCH (19:10)
[2024-07-11] MEDS: levoFLOXacin 500MG 100 ML IV ONE (19:10)
--- NOTE | 2024-07-11 21:15 | DVH ---
INDICATION: eval for sob, hx of thoraic ascending anerysym COMPARISON: CT chest with contrast 06/27/2024 TECHNIQUE: Multidetector CTA of the chest was performed of the chest with 100 cc of intravenous contr ast. PULMONARY ANGIOGRAPHY PROTOCOL was utilized using a bolus-tracking technique centered on the owen n pulmonary artery. Axial, coronal and sagittal multiplanar and MIP reformats were performed. Radiation Dose : 1. Chest: CTDI volume is 6.29 mGy. Dose-length product is 257.98 mGy*cm The dose indicators for CT are the volume Computed Tomography (CT) Dose Index (CTDIvol) and the Dose Length Product (DLP), and are measured in units of mGy and mGy-cm, respectively. These indicators are not patient dose, but values generated from the CT scanner acquisition factors. The report includes radiation exposure data for exposures received during this examination. Findings: The thyroid gland is unremarkable. There is redemonstration of eccentric filling defect within the left pulmonary trunk extending into the lower lobe segmental and subsegmental pulmonary arteries. There is slight extension into the Lef t upper lobe pulmonary artery. Artifact limits evaluation of the more proximal left main pulmonary ar deloris. The right sided pulmonary arteries are unremarkable. Aneurysmal dilatation of the ascending aortameasuring up to 5.5 cm proximally.limited evaluation for dissection due to inadequate contrast opacification. Moderate to severe cardiomegaly with reflux of contrast into the IVC and hepatic veins. There is lingula and Bilateral lower lobe Appears. There is bilateral lung bronchial wall thickening and mild bronchiectasis. Unchanged emphysematous changes of bilateral lungs. Small left-sided pleura l effusion. No pneumothorax. Mediastinal lymphadenopathy. Mild gastric wall thickening. Partially imaged 4 cm left renal cyst. Otherwise partial view of the u pper abdomen is unremarkable. The soft tissues unremarkable. No destructive osseous lesions are noted. IMPRESSION: Redemonstration of eccentric filling defect within the left main pulmonary artery with extension into the left lower lobe segmental and subsegmental pulmonary arteries questionable minimal extension int o the Left upper lobe segmental pulmonary artery. Findings relatively unchanged from prior imaging. Moderate to severe cardiomegaly with reflux of contrast into the IVC and hepatic veins consistent wit h right heart dysfunction. Aneurysmal dilatation of the ascending aorta measuring up to 5.5 cm proximally. Mild left-sided pleural effusion. Interval slight improvement in the bilateral lung opacities with unchanged bronchiectasis and bronchi al wall thickening. Unchanged emphysematous changes bilateral lungs. Mediastinal lymphadenopathy which may be reactive with neoplasm not excluded.
[2024-07-11 21:45] VITALS: PULSE 94; RESP 18; O2SAT 98
[2024-07-11] MEDS: methylPREDNISolone SOD SUCC 125 MG/2 ML VL IV SCH (22:20)
[2024-07-12] VITALS (21 sets, daily range): BP systolic 110–124; BP diastolic 57–78; PULSE 75–130; RESP 16–20; TEMP 97.3–98.7; O2SAT 90–100
[2024-07-12] MEDS: ONDANSETRON HCL 4 MG/2 ML VIAL IV PRN (01:49)
[2024-07-12] MEDS: MORPHINE SULFATE INJ 2 MG/ml SYRG IV PRN (01:49)
[2024-07-12] MEDS ORDERED: PNEUMOCOCCAL VACC POLYS 25 MCG/0.5 ML VIAL IM ONE (04:30)
--- NOTE | 2024-07-12 07:08 | DVH ---
CHEST RADIOGRAPH Indication: cough Technique: Single frontal view of the chest was obtained Comparison: XY CHEST XRAY 1 VIEW on DOS: 07/11/24 FINDINGS: Lines and Tubes: None Lungs: Bibasilar opacities. Emphysema. Pleura: Left pleural effusion similar to recent chest CT. No pneumothorax. Cardiomediastinal contours: Stable cardiomegaly. Bones: No acute osseous abnormality. IMPRESSION: 1. No significant interval change in left pleural effusion and bibasilar airspace disease.
[2024-07-12 08:04] LABS: Basophils # (auto) 0 10 ^3/uL (0-0.2); Basophils % (auto) 0.1 % (0.0-2.0); Eosinophils # (auto) 0 10 ^3/uL (0-0.8); Hematocrit 41.9 % (41.0-53.0); Hemoglobin 14.2 g/dL (13.5-17.5); Lymphocytes # (auto) 0.4 10 ^3/uL (0.4-5.4); Lymphocytes % (auto) 5.5 % (10.0-50.0); Mean Corpuscular Hemoglobin 34.6 pg (28.0-32.0); Mean Corpuscular Volume 101.7 fL (80.0-100.0); Monocytes # (auto) 0.1 10 ^3/uL (0-1.3); Monocytes % (auto) 1.2 % (0.0-12.0); Neutrophils # (auto) 6.2 10 ^3/uL (1.6-8.6); Neutrophils % (auto) 93.2 % (37.0-80.0); Platelet Count (auto) 137 10^3/uL (140-450); Red Blood Cells 4.12 10^6/uL (4.5-5.90); Red Cell Distribution Width 13.7 % (11.8-14.3); White Blood Cell 6.7 10^3/uL (4.4-10.8)
[2024-07-12 08:34] LABS: Alanine Aminotransferase 17 U/L (7-40); Anion Gap 7 (5-15); Aspartate Aminotransferase 22 U/L (13-40); BUN/Creatinine Ratio 18.3 (10.0-20.0); Bilirubin, Total 0.9 mg/dL (0.2-1.0); Calcium 9.9 mg/dL (8.7-10.4); Carbon Dioxide 25 mmol/L (20-31); Chloride 100 mmol/L (98-107)
[2024-07-12 08:38] LABS: Alkaline Phosphatase 254 U/L (46-116); Blood Urea Nitrogen 26 mg/dL (9-23); Glucose 160 mg/dL (74-106); Sodium 132 mmol/L (136-145)
[2024-07-12] MEDS: levoFLOXacin 250MG 50 ML IV SCH (09:28)
[2024-07-12] MEDS: PANTOPRAZOLE 40 MG/10 ML VIAL INJ IV SCH (09:28)
--- NOTE | 2024-07-12 10:23 | ECG ---
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
--- NOTE | 2024-07-12 11:14 | DVHPN2 ---
Reviewed: Care Plan, H&P, Labs, Medications, Previous Orders, Radiology Changes from previous H/P or p: No Changes Eyes: No Pain, No Vision change, No Conjunctivae inflammation, No Eyelid inflammation, No Other, No Redness ENT: No Ear pain, No Ear discharge, No Nose pain, No Nose discharge, No Nose congestion, No Mouth pain, No Mouth swelling, No Throat pain, No Throat swelling, No Other Cardiovascular: No Chest Pain, No Palpitations, No Orthopnea, No Paroxysmal Noc. Dyspnea, No Edema, No Lt Headedness, No Other Respiratory: No Cough, No Dry; Shortness of breath, SOB with excertion; No Wheezing, No Hemoptysis, No Pleuritic Pain, No Sputum, No Other Gastrointestinal: No Nausea, No Vomiting, No Abdominal Pain, No Diarrhea, No Constipation, No Melena, No Hematochezia, No Other Genitourinary: No Dysuria, No Frequency, No Incontinence, No Hematuria, No Retention, No Other Musculoskeletal: No other, No neck pain, No shoulder pain, No arm pain, No back pain, No hand pain, No leg pain, No foot pain Skin: No Rash, No Lesions, No Jaundice, No Bruising, No Other Objective Vitals Vital Signs Date Time Temp Pulse Resp B/P (MAP) Pulse Ox O2 Delivery O2 Flow Rate FiO2 07/12/24 10:47 79 18 99 07/12/24 10:00 Room Air 07/12/24 10:00 0 21 07/12/24 09:00 98.7 120/78 (92) 98.7 Intake/Output Intake and Output 07/12/24 07:00 Intake Total 475 ml Output Total 100 ml Balance 375 ml Intake Oral 375 ml IV Total 100 ml Output Urine Total 100 ml # Voids 2 Medications Current Medications Medications Dose Ordered Sig/Louie Route Start Time Stop Time Status Last Admin Dose Admin Rivaroxaban 15 mg QPM PO 07/11/24 18:00 07/11/24 19:10 15 MG Methylprednisolone Sodium Succinate 40 mg Q8HR IV 07/11/24 22:00 07/12/24 05:22 40 MG Albuterol 2.5 mg Q4HPRN PRN NEB 07/11/24 14:30 Ipratropium Rolfe 0.5 mg Q4HR NEB 07/11/24 18:00 07/12/24 10:36 0.5 MG Ondansetron HCl 4 mg Q4HP PRN IV 07/11/24 14:30 07/12/24 01:49 4 MG Docusate Sodium 100 mg BIDPRN PRN PO 07/11/24 14:30 Morphine Sulfate 2 mg Q4HPRN PRN IV 07/11/24 14:30 07/12/24 01:49 2 MG Nitroglycerin 0.4 mg Q5MINP PRN SL 07/11/24 14:30 Acetaminophen/ Hydrocodone Bitart 1 tab Q6HPRN PRN PO 07/11/24 17:15 07/12/24 05:12 1 TAB Levofloxacin 50 ml @ 50 mls/hr DAILY IV 07/12/24 10:00 07/12/24 09:28 50 MLS/HR Pantoprazole Sodium 40 mg DAILY IV 07/12/24 10:00 07/12/24 09:28 40 MG Laboratory Results Laboratory Tests 07/12/24 06:58 Chemistry Test 07/11/24 11:52 07/12/24 06:58 Calcium Level 10.5 mg/dL (8.7-10.4) H 9.9 mg/dL (8.7-10.4) Albumin 4.0 g/dL (3.2-4.8) Total Protein 7.0 g/dL (5.7-8.2) LFT Test 07/12/24 06:58 Alanine Aminotransferase (ALT) 17 U/L (7-40) Alkaline Phosphatase 254 U/L (46-116) H Aspartate Amino Transferase (AST) 22 U/L (13-40) Total Bilirubin 0.9 mg/dL (0.2-1.0) Urinalysis Test 07/11/24 18:22 Urine Color Yellow (Yellow) Urine Clarity Turbid (Clear) H Urine pH 5.5 (5.0-9.0) Urine Specific [place] 1.030 (1.001-1.035) Urine Protein 1+ (Negative) H Urine Ketones Trace (Negative) Urine Blood Negative /uL (Negative) Urine Nitrite Negative (Negative) Urine Bilirubin Negative (Negative) Urine Urobilinogen Normal mg/dL (Negative) Urine Leukocyte Esterase 1+ /uL (Negative) Urine RBC 23 /hpf (0 - 3) Urine Microscopic WBC 10 /HPF (0-3) H Urine Squamous Epithelial Cells Few /hpf (<5) Urine Calcium Oxalate Crystals Few (None Seen) Urine Bacteria None seen /hpf (None Seen) Urine Mucus Few (None Seen) Urine Glucose Normal mg/dL (Normal) Labs and/or images reviewed: Labs reviewed by me, Image(s) reviewed by me Assessment/Plan Assessment/Plan Acute on chronic respiratory failure Acute COPD exacerbation: Albuterol Atrovent Acute community-acquired pneumonia: Levaquin: Consult for Dr. Moser Acute CHF exacerbation ejection fraction 10-15 percent: Consult for supervisor bonding Dr Rizvi Pulmonary embolism on Xarelto Ascending thoracic aortic aneurysm 5.5 cm: Consult for supervisor bonding Dr Rizvi Rheumatoid arthritis BPH Gastric cancer Anemia Time spent 70 minutes Advanced care planning time 20 minutes Patient is full code Plan discussed with: Patient My Orders Orders - RAY CORCORAN MD Procedure Category Date Status Time D-Dimer LAB 07/12/24 Transmitted 11:06 Covid19 Antigen Michelle LAB 07/12/24 Transmitted Rapid Influenza A&B LAB 07/12/24 Transmitted 11:06 Date of Service: Jul 12, 2024 Billing Provider: RAY CORCORAN MD Common Visit Codes: 22706-AIBKPTAS CARE 30-74 MIN RAY CORCORAN MD Jul 12, 2024 11:14
--- NOTE | 2024-07-12 12:46 | DVHINCON2 ---
Date Seen: Jul 12, 2024 Referring Physician MD Sivakumar Reason for Consultation CHF exacerbation and ascending aorta aneurysm History of Present Illness This is an 83-year-old male patient who presents to the emergency room with chief complaint of generalized weakness and shortness of breath for four days prior to emergency room arrival. Cardiology has now been consulted at this time for CHF exacerbation and ascending aortic aneurysm. The patient denies any cardiac symptoms at time of assessment. Initial twelve lead electrocardiogram reveals atrial fibrillation with left ventricular hypertrophy. Significant past medical history includes persistent atrial fibrillation (on Xarelto therapy), congestive heart failure, hypertension, thoracic aortic aneurysm, pulmonary embolism (on Xarelto), COPD, benign prostatic hyperplasia, arthritis, anxiety, and previous tobacco use. The patient reports he follows up with a global consumer sector vice president at the [place] in [facility]. He also reports that he has not been taking all of his medications, specifically his heart failure medications. Past Medical History Past medical history reviewed. No other significant than mentioned above. Past Surgical History Bilateral hernia repair Hemorrhoidectomy Family History: Alcoholism G8 FATHER, Onset:Unknown (patient states his father left when he was a child and doesnt know much about him) FH: atrial fibrillation G8 MOTHER, Onset:60 years & older FH: migraines G8 MOTHER GERD G8 MOTHER, Onset:60 years & older Hypertension G8 MOTHER, Onset:50's - 60 Family History Family history reviewed. Social History Patient has a 10 pack-year history, quit smoking approximately 40 years ago Denies any illicit drug use Denies any alcohol use Allergies: Coded Allergies: Sulfa Antibiotics (Verified Allergy, Severe, 05/08/24) Sulfabenzamide (Verified Allergy, Intermediate, 05/08/24) Sulfacetamide (Verified Allergy, Intermediate, 05/08/24) Sulfathiazole (Verified Allergy, Intermediate, 05/08/24) Metoprolol (Verified Adverse Reaction, Severe, 07/12/24) "don't feel very good" per patient Sitagliptin (Verified Adverse Reaction, Severe, 07/12/24) Pt states it made him "feel not very good" Home Meds Active Scripts Hydroxychloroquine Sulfate (Hydroxychloroquine Sulfat) 200 Mg Tab, 200 MG PO DAILY, #30 TAB 5 Refills Prov:CONNIE COLON MD 07/01/24 Hydrocodone-Acetaminophen (Hydrocodone Bitartrate/AC 5-325 mg) 1 Tab Tab, 1 TAB PO Q6HPRN PRN, #20 TAB Prov:CONNIE COLON MD 07/01/24 Rivaroxaban (XARELTO) 20 Mg Tab, 1 TAB PO QPM, #30 TAB 5 Refills Prov:CONNIE COLON MD 07/01/24 Albuterol Sulfate (VENTOLIN MDI) 90 Mcg Ih, 90 MCG IN QID PRN, #1 INH Prov:RAY CORCORAN MD 06/17/24 Spironolactone (Aldactone) 25 Mg Tab, 1 TAB PO DAILY, #30 TAB 5 Refills Prov:HERBIE LEI MD 05/11/24 Furosemide (Lasix) 40 Mg Tab, 40 MG PO DAILY for 30 Days, #30 TAB 5 Refills Prov:HERBIE LEI MD 05/11/24 Metoprolol Succinate (Metoprolol Succinate Er) 25 Mg Tab, 1 TAB PO DAILY, #30 TAB 1 Refill Prov:ZEENAT PRATT MD 04/20/24 Empagliflozin (Jardiance) 10 Mg Tab, 10 MG PO DAILY for 30 Days, #30 TAB 1 Refill Prov:ZEENAT PRATT MD 04/20/24 Epinephrine (Anaphylaxis) (Auvi-Q) 0.1 Mg/0.1 Ml Inj, 0.1 MG IJ O PRN for 1 Day, #1 INJ Prov:MARCELO TOWNSEND MD 09/09/23 Reported Medications Hydroxychloroquine Sulfate (Hydroxychloroquine Sulfat) 200 Mg Tab, PO for 30 Days, MG 06/14/24 Zolpidem Tartrate (Ambien) 10 Mg Tab, 1 TAB PO QPM 09/20/23 Tamsulosin Hcl (Flomax) 0.4 Mg Cap, 0.4 MG PO DAILY, CAP 09/04/23 Home Meds Home medications reviewed. Current Medications Current Medications Medications (Trade) Dose Ordered Sig/Louie Route PRN Reason Start Time Stop Time Status Last Admin Rivaroxaban (Xarelto Tablet) 15 mg QPM PO 07/11/24 18:00 07/11/24 19:10 Methylprednisolone Sodium Succinate (Solu Medrol) 40 mg Q8HR IV 07/11/24 22:00 07/12/24 05:22 Albuterol (Ventolin Medneb) 2.5 mg Q4HPRN PRN NEB SHORTNESS OF BREATH 07/11/24 14:30 Ipratropium [place] (Atrovent Medneb) 0.5 mg Q4HR NEB 07/11/24 18:00 07/12/24 10:36 Ondansetron HCl (Zofran) 4 mg Q4HP PRN IV NAUSEA / VOMITING 07/11/24 14:30 07/12/24 01:49 Docusate Sodium (Colace Capsule) 100 mg BIDPRN PRN PO FOR CONSTIPATION 07/11/24 14:30 Morphine Sulfate 2 mg Q4HPRN PRN IV SEVERE PAIN (7-10 PAIN SCALE) 07/11/24 14:30 07/12/24 01:49 Nitroglycerin (Ntrostat Sublingual) 0.4 mg Q5MINP PRN SL FOR CHEST PAIN 07/11/24 14:30 Acetaminophen/ Hydrocodone Bitart (Felt 5/325MG Tab) 1 tab Q6HPRN PRN PO MILD PAIN (1-3 PAIN SCALE) 07/11/24 17:15 07/12/24 05:12 Levofloxacin 50 ml @ 50 mls/hr DAILY IV 07/12/24 10:00 07/12/24 09:28 Pantoprazole Sodium (Protonix) 40 mg DAILY IV 07/12/24 10:00 07/12/24 09:28 Review of Systems Constitutional: Generalized weakness Ears, Nose, & Throat: No symptom reported Eyes: No symptom reported Neurological: No symptoms reported Pulmonary/Respiratory: Shortness of breath Cardiovascular: No symptom reported Gastrointestinal: No symptom reported Genitourinary: No symptom reported Musculoskeletal: No symptom reported Skin: No symptom reported Psychiatric: No symptom reported Endocrine: No symptom reported Hematologic/Lymphatic: No symptom reported Vital Signs Vital Signs Date Time Temp Pulse Resp B/P (MAP) Pulse Ox O2 Delivery O2 Flow Rate FiO2 07/12/24 10:47 79 18 99 07/12/24 10:00 Room Air 07/12/24 10:00 0 21 07/12/24 09:00 98.7 120/78 (92) 98.7 Physical Exam General Appearance: Cooperative. Well-developed. Well-nourished. No acute distress. Pulmonary/Respiratory: Clear, bilateral breaths sounds. Cardiovascular/Chest: Irregular rate and rhythm. Peripheral Pulses: 2+ Radial (R). 2+ Radial (L). 1+ Pedal (R). 1+ Pedal (L) Abdominal Exam: Normal bowel sounds. Ankle Exam: Negative ankle edema Lower extremities: Negative lower extremity edema Neuro/Mental Status: A/OX4, coherent. Thoughts/Psych: Normal thought pattern. Appropriate mood and affect. Good judgment and insight. Appearance: No acute distress. Skin Exam: Normal inspection. Normal color. Warm and dry. Labs/Diagnostic Data Labs Test 07/12/24 12:05 07/12/24 06:58 07/11/24 18:22 Range/Units White Blood Count 6.7 # 4.4-10.8 10^3/uL Red Blood Count 4.12 L 4.5-5.90 10^6/uL Hemoglobin 14.2 13.5-17.5 g/dL Hematocrit 41.9 41.0-53.0 % Mean Corpuscular Volume 101.7 H 80.0-100.0 fL Mean Corpuscular Hemoglobin 34.6 H 28.0-32.0 pg Mean Corpuscular Hemoglobin Concent 34.0 32.0-36.0 g/dL Red Cell Distribution Width 13.7 11.8-14.3 % Platelet Count 137 L 140-450 10^3/uL Mean Platelet Volume 8.6 6.9-10.8 fL Neutrophils (%) (Auto) 93.2 H 37.0-80.0 % Lymphocytes (%) (Auto) 5.5 L 10.0-50.0 % Monocytes (%) (Auto) 1.2 0.0-12.0 % Eosinophils (%) (Auto) 0.0 0.0-7.0 % Basophils (%) (Auto) 0.1 0.0-2.0 % Neutrophils # (Auto) 6.2 1.6-8.6 10 ^3/uL Lymphocytes # (Auto) 0.4 0.4-5.4 10 ^3/uL Monocytes # (Auto) 0.1 0-1.3 10 ^3/uL Eosinophils # (Auto) 0 0-0.8 10 ^3/uL Basophils # (Auto) 0 0-0.2 10 ^3/uL Nucleated Red Blood Cells 0.0 % Sodium Level 132 L 136-145 mmol/L Potassium Level 5.0 3.5-5.1 mmol/L Chloride Level 100 98-107 mmol/L Carbon Dioxide Level 25 20-31 mmol/L Anion Gap 7 5-15 Blood Urea Nitrogen 26 H 9-23 mg/dL Creatinine 1.42 H 0.700-1.30 mg/dL Glomerular Filtration Rate Calc 48 >90 mL/min BUN/Creatinine Ratio 18.3 10.0-20.0 Serum Glucose 160 H 74-106 mg/dL Calcium Level 9.9 8.7-10.4 mg/dL Total Bilirubin 0.9 0.2-1.0 mg/dL Aspartate Amino Transferase (AST) 22 13-40 U/L Alanine Aminotransferase (ALT) 17 7-40 U/L Alkaline Phosphatase 254 H 46-116 U/L Total Protein 7.0 5.7-8.2 g/dL Albumin 4.0 3.2-4.8 g/dL Urine Color Yellow Yellow Urine Clarity Turbid H Clear Urine pH 5.5 5.0-9.0 Urine Specific [place] 1.030 1.001-1.035 Urine Protein 1+ H Negative Urine Ketones Trace Negative Urine Blood Negative Negative /uL Urine Nitrite Negative Negative Urine Bilirubin Negative Negative Urine Urobilinogen Normal Negative mg/dL Urine Leukocyte Esterase 1+ Negative /uL Urine RBC 23 0 - 3 /hpf Urine Microscopic WBC 10 H 0-3 /HPF Urine Squamous Epithelial Cells Few <5 /hpf Urine Calcium Oxalate Crystals Few None Seen Urine Bacteria None seen None Seen /hpf Urine Mucus Few None Seen Urine Glucose Normal Normal mg/dL Assessment Longstanding persistent atrial fibrillation, Stage 3c (on Xarelto) Acute on chronic decompensated HFrEF, NYHA class III Hypertension Aortic, mitral, and tricuspid regurgitation, of severe degree Ascending thoracic aortic aneurysm, 5.5cm COPD Recent history of pulmonary embolism (on Xarelto) Acute kidney injury Cachexia Anxiety Medical noncompliance Plan/Recommendation We will continue with the following plan/recommendations (Dr. Bello): * Transthoracic echocardiogram from 06/27/2024 reveals LVEF 10-15% * Initiate guideline directed medical therapy for CHF as tolerated by renal function * Initiate ARNI with improved creatinine * Avoid MRA (spironolactone) given borderline potassium * [id number] VASc score: 6 points, HAS-BLED score: 2 points * Continue Xarelto therapy * Beta-tan for rate control, up titrate as tolerated * Avoid antiarrhythmic agent given persistent atrial fibrillation * Close Cardiac surveillance * Monitor and replete electrolytes as needed, keep potassium greater than four and magnesium greater than two * Risk factor modifications, counseled * Medication adherence Patient seen and examined at bedside with . CT angiography results reviewed with . Findings are significant for a 5.5 cm ascending aortic aneurysm. The patient may follow up in the outpatient setting with a vascular surgeon for possible endovascular intervention. Thank you for allowing us to care for this patient. Please call with any questions or concerns. Critical care time spent: 44 minutes This medical document was created using an electronic medical record system with voice recognition software and computerized dictation system. Although this document has been carefully reviewed, there might still be some phonetic and typographical errors. Occasional wrong-word or ``sound-alike substitutions m ay have occurred due to the inherent limitations of voice recognition software. These areas are purely typographical due to imperfections of the software programs and do not reflect any compromise in the patient's medical care. Please read the chart carefully and recognize, using context, where these substitutions have occurred. Plan discussed with: Patient NYHA Physical activity limitations: Class3(Marked) ordinary (activity causes symtoms) Date of Service: Jul 12, 2024 Billing Provider: LURDES MOON Cardiology Common Codes: 85720-[id number] INP/OBS CARE (High) Cardiology Consultation Codes: 22687-[id number] CONSULT <45MIN LURDES MOON Jul 12, 2024 12:46
[2024-07-12] MEDS: hydrOXYchloroQUINE SULFATE 200 MG TAB PO ONE (15:19)
[2024-07-12 15:20] LABS: COVID19 ANTIGEN SOFIA FIA NEGATIVE (NEGATIVE); Rapid Influenza A Negative (Negative); Rapid Influenza B Negative (Negative)
[2024-07-12] MEDS: TAMSULOSIN HYDROCHLORIDE 0.4 MG CAP PO SCH (20:39)
[2024-07-12] MEDS ORDERED: CARVEDILOL 3.125 MG TAB PO SCH (22:00)
--- NOTE | 2024-07-12 22:02 | DVHINCON2 ---
Date of service: Jul 12, 2024 Referring Physician Ray Corcoran MD Reason for Consultation Acute COPD exacerbation History of Present Illness An 83-year-old man with complex medical history including COPD, systolic heart failure (HFrEF, EF 10-15%), pulmonary embolism on Xarelto, thoracic aortic ane urysm (5 cm), and rheumatoid arthritis who presented to ED on 07/11/24 with generalized weakness, shortness of breath, and lightheadedness. The patient reported feeling weak for approximately 1 week, with worsening dyspnea and lightheadedness prompting his visit to ED. Pt denied chest pain, abdominal pain, N/V/D or other acute complaints. Patient is had an echocardiogram in June 2024 which revealed a severely reduced ejection fraction of 10-15%. On evaluation in the ED, he was hemodynamically stable. Labs revealed mild anemia (Hgb 10.9), BUN 24, and calcium 10.5. Patient was admitted for further care d/t COPD exacerbation with CHF. Pulmonary consultation is requested for evaluation and management due to the above findings. Review of Systems: 14-point review of systems negative unless otherwise noted above. Past Medical History: COPD, thoracic aortic aneurysm (5 cm), systolic heart failure (HFrEF, EF 10- 15%), pulmonary embolism - on Xarelto, rheumatoid arthritis, benign prostatic hyperplasia, gastric ulcer Past Surgical History: Hernia repair Medications: Reviewed. Allergies: Sulfa Antibiotics Metoprolol Sitagliptin. Family History: Alcoholism Atrial fibrillation Migraines GERD Hypertension. Social History: Nonsmoker. No alcohol or illicit drug use. Family History: Alcoholism G8 FATHER, Onset:Unknown (patient states his father left when he was a child and doesnt know much about him) FH: atrial fibrillation G8 MOTHER, Onset:60 years & older FH: migraines G8 MOTHER GERD G8 MOTHER, Onset:60 years & older Hypertension G8 MOTHER, Onset:50's - 60 Allergies: Coded Allergies: Sulfa Antibiotics (Verified Allergy, Severe, 05/08/24) Sulfabenzamide (Verified Allergy, Intermediate, 05/08/24) Sulfacetamide (Verified Allergy, Intermediate, 05/08/24) Sulfathiazole (Verified Allergy, Intermediate, 05/08/24) Metoprolol (Verified Adverse Reaction, Severe, 07/12/24) "don't feel very good" per patient Sitagliptin (Verified Adverse Reaction, Severe, 07/12/24) Pt states it made him "feel not very good" Home Meds Active Scripts Hydroxychloroquine Sulfate (Hydroxychloroquine Sulfat) 200 Mg Tab, 200 MG PO DAILY, #30 TAB 5 Refills Prov:CONNIE CLOON MD 07/01/24 Hydrocodone-Acetaminophen (Hydrocodone Bitartrate/AC 5-325 mg) 1 Tab Tab, 1 TAB PO Q6HPRN PRN, #20 TAB Prov:CONNIE COLON MD 07/01/24 Rivaroxaban (XARELTO) 20 Mg Tab, 1 TAB PO QPM, #30 TAB 5 Refills Prov:CONNIE COLON MD 07/01/24 Albuterol Sulfate (VENTOLIN MDI) 90 Mcg Ih, 90 MCG IN QID PRN, #1 INH Prov:RAY CORCORAN MD 06/17/24 Spironolactone (Aldactone) 25 Mg Tab, 1 TAB PO DAILY, #30 TAB 5 Refills Prov:HERBIE LEI MD 05/11/24 Furosemide (Lasix) 40 Mg Tab, 40 MG PO DAILY for 30 Days, #30 TAB 5 Refills Prov:HERBIE LEI MD 05/11/24 Metoprolol Succinate (Metoprolol Succinate Er) 25 Mg Tab, 1 TAB PO DAILY, #30 TAB 1 Refill Prov:ZEENAT PRATT MD 04/20/24 Empagliflozin (Jardiance) 10 Mg Tab, 10 MG PO DAILY for 30 Days, #30 TAB 1 Refill Prov:ZEENAT PRATT MD 04/20/24 Epinephrine (Anaphylaxis) (Auvi-Q) 0.1 Mg/0.1 Ml Inj, 0.1 MG IJ O PRN for 1 Day, #1 INJ Prov:MARCELO TOWNSEND MD 09/09/23 Reported Medications Hydroxychloroquine Sulfate (Hydroxychloroquine Sulfat) 200 Mg Tab, PO for 30 Days, MG 06/14/24 Zolpidem Tartrate (Ambien) 10 Mg Tab, 1 TAB PO QPM 09/20/23 Tamsulosin Hcl (Flomax) 0.4 Mg Cap, 0.4 MG PO DAILY, CAP 09/04/23 Current Medications Current Medications Medications (Trade) Dose Ordered Sig/Louie Route PRN Reason Start Time Stop Time Status Last Admin Methylprednisolone Sodium Succinate (Solu Medrol) 40 mg Q8HR IV 07/11/24 22:00 07/12/24 20:40 Levofloxacin 50 ml @ 50 mls/hr DAILY IV 07/12/24 10:00 07/12/24 09:28 Pantoprazole Sodium (Protonix) 40 mg DAILY IV 07/12/24 10:00 07/12/24 09:28 Hydroxychloroquine Sulfate (Plaquenil Tablet) 200 mg DAILY PO 07/13/24 10:00 Tamsulosin HCl (Flomax) 0.4 mg QPM PO 07/12/24 22:00 07/12/24 20:39 Carvedilol (Coreg Tablet) 3.125 mg Q12HR PO 07/12/24 22:00 Future hold Vital Signs Vital Signs Date Time Temp Pulse Resp B/P (MAP) Pulse Ox O2 Delivery O2 Flow Rate FiO2 07/12/24 21:00 97.3 109 20 119/59 (79) 97 97.3 07/12/24 19:03 Room Air 0.0 07/12/24 19:03 21 Physical Exam Gen.: Patient lying in bed in no apparent distress. Breathing on room air. Head: Normocephalic, atraumatic. Eyes: EOMI/PERRLA. Ears: Normal hearing. Normal anatomy. Neck/trachea: Trachea midline, supple. Nose: Normal external anatomy. Mouth: Moist mucous membranes. Chest: Decreased air entry bilaterally. No wheezing or rhonchi. Cardiovascular: Positive S1, positive S2. Regular rate and rhythm. Abdomen: Positive bowel sounds in all 4 quadrants. Soft, non-tender, non- distended. : Deferred. Rectal: Deferred. Skin: Warm, dry. Intact. Extremities: 2+ radial pulses bilaterally. No lower extremity edema. Neuro: Awake, alert, oriented x3. No gross motor or sensory deficits. Cranial nerves II through XII intact. Gait not assessed. Labs/Diagnostic Data Labs Test 07/12/24 13:30 07/12/24 12:05 07/12/24 06:58 07/11/24 18:22 Range/Units Influenza Type A Antigen Negative Negative Influenza Type B Antigen Negative Negative SARS-CoV-2 Antigen (Rapid) Negative NEGATIVE D-Dimer, Quantitative 0.29 0.0-0.49 mg/L FEU White Blood Count 6.7 # 4.4-10.8 10^3/uL Red Blood Count 4.12 L 4.5-5.90 10^6/uL Hemoglobin 14.2 13.5-17.5 g/dL Hematocrit 41.9 41.0-53.0 % Mean Corpuscular Volume 101.7 H 80.0-100.0 fL Mean Corpuscular Hemoglobin 34.6 H 28.0-32.0 pg Mean Corpuscular Hemoglobin Concent 34.0 32.0-36.0 g/dL Red Cell Distribution Width 13.7 11.8-14.3 % Platelet Count 137 L 140-450 10^3/uL Mean Platelet Volume 8.6 6.9-10.8 fL Neutrophils (%) (Auto) 93.2 H 37.0-80.0 % Lymphocytes (%) (Auto) 5.5 L 10.0-50.0 % Monocytes (%) (Auto) 1.2 0.0-12.0 % Eosinophils (%) (Auto) 0.0 0.0-7.0 % Basophils (%) (Auto) 0.1 0.0-2.0 % Neutrophils # (Auto) 6.2 1.6-8.6 10 ^3/uL Lymphocytes # (Auto) 0.4 0.4-5.4 10 ^3/uL Monocytes # (Auto) 0.1 0-1.3 10 ^3/uL Eosinophils # (Auto) 0 0-0.8 10 ^3/uL Basophils # (Auto) 0 0-0.2 10 ^3/uL Nucleated Red Blood Cells 0.0 % Sodium Level 132 L 136-145 mmol/L Potassium Level 5.0 3.5-5.1 mmol/L Chloride Level 100 98-107 mmol/L Carbon Dioxide Level 25 20-31 mmol/L Anion Gap 7 5-15 Blood Urea Nitrogen 26 H 9-23 mg/dL Creatinine 1.42 H 0.700-1.30 mg/dL Glomerular Filtration Rate Calc 48 >90 mL/min BUN/Creatinine Ratio 18.3 10.0-20.0 Serum Glucose 160 H 74-106 mg/dL Calcium Level 9.9 8.7-10.4 mg/dL Total Bilirubin 0.9 0.2-1.0 mg/dL Aspartate Amino Transferase (AST) 22 13-40 U/L Alanine Aminotransferase (ALT) 17 7-40 U/L Alkaline Phosphatase 254 H 46-116 U/L Total Protein 7.0 5.7-8.2 g/dL Albumin 4.0 3.2-4.8 g/dL Urine Color Yellow Yellow Urine Clarity Turbid H Clear Urine pH 5.5 5.0-9.0 Urine Specific [place] 1.030 1.001-1.035 Urine Protein 1+ H Negative Urine Ketones Trace Negative Urine Blood Negative Negative /uL Urine Nitrite Negative Negative Urine Bilirubin Negative Negative Urine Urobilinogen Normal Negative mg/dL Urine Leukocyte Esterase 1+ Negative /uL Urine RBC 23 0 - 3 /hpf Urine Microscopic WBC 10 H 0-3 /HPF Urine Squamous Epithelial Cells Few <5 /hpf Urine Calcium Oxalate Crystals Few None Seen Urine Bacteria None seen None Seen /hpf Urine Mucus Few None Seen Urine Glucose Normal Normal mg/dL Microbiology Date/Time Source Procedure Growth Status 07/12/24 06:30 Nose MRSA Screen - Final Complete Assessment Impression: Acute COPD exacerbation Systolic CHF, EF of 10% Benign prostatic hypertrophy Atrial fibrillation, on Xarelto Cachexia, 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 CXR demonstrates left pleural effusion and bibasilar airspace disease. Continue bronchodilators Continue steroids Continue antibiotics Incentive spirometry On Xarelto for AFib Cardiology recs appreciated. Protonix for GI prophylaxis Monitor renal function. Monitor electrolytes. Supplement as necessary. Monitor ins and outs. DVT prophylaxis. Prognosis: Poor given patient's multiple co-morbidities. Rest of plan per hospitalist and other consultants. Thank you Dr. Corcoran for allowing me to participate in this patient's care. Further recommendations will depend on the patient's clinical course. Please do not hesitate to contact me if you have any questions or concerns. This medical document was created using an electronic medical record system with [employer] dictation system. Although these documentations are being carefully reviewed, there may still be some phonetic and typographical changes. The errors are purely typographical, due to imperfection on the software program, and do not reflect any compromise in the patient's medical care. Plan discussed with: Other (KRISTINA Juarez/Dr. Corcoran) SERA OROZCO MD Jul 12, 2024 22:02
[2024-07-13] VITALS (18 sets, daily range): BP systolic 110–129; BP diastolic 60–76; PULSE 65–104; RESP 16–20; TEMP 97.3–98.8; O2SAT 92–100
--- NOTE | 2024-07-13 10:23 | DVHPN2 ---
Reviewed: Care Plan, H&P, Labs, Medications, Previous Orders, Radiology Changes from previous H/P or p: No Changes Eyes: No Pain, No Vision change, No Conjunctivae inflammation, No Eyelid inflammation, No Other, No Redness ENT: No Ear pain, No Ear discharge, No Nose pain, No Nose discharge, No Nose congestion, No Mouth pain, No Mouth swelling, No Throat pain, No Throat swelling, No Other Cardiovascular: No Chest Pain, No Palpitations, No Orthopnea, No Paroxysmal Noc. Dyspnea, No Edema, No Lt Headedness, No Other Respiratory: No Cough, No Dry; Shortness of breath, SOB with excertion; No Wheezing, No Hemoptysis, No Pleuritic Pain, No Sputum, No Other Gastrointestinal: No Nausea, No Vomiting, No Abdominal Pain, No Diarrhea, No Constipation, No Melena, No Hematochezia, No Other Genitourinary: No Dysuria, No Frequency, No Incontinence, No Hematuria, No Retention, No Other Musculoskeletal: No other, No neck pain, No shoulder pain, No arm pain, No back pain, No hand pain, No leg pain, No foot pain Skin: No Rash, No Lesions, No Jaundice, No Bruising, No Other Objective Vitals Vital Signs Date Time Temp Pulse Resp B/P (MAP) Pulse Ox O2 Delivery O2 Flow Rate FiO2 07/13/24 10:06 98 Room Air* 0 21 07/13/24 10:06 78 16 07/13/24 09:00 97.8 129/63 (85) 97.8 Intake/Output Intake and Output 07/13/24 07:00 Intake Total 2005 ml Output Total 850 ml Balance 1155 ml Intake Oral 1955 ml IV Total 50 ml Output Urine Total 850 ml # Bowel Movements 1 Medications Current Medications Medications Dose Ordered Sig/Louie Route Start Time Stop Time Status Last Admin Dose Admin Rivaroxaban 15 mg QPM PO 07/11/24 18:00 07/12/24 17:17 15 MG Methylprednisolone Sodium Succinate 40 mg Q8HR IV 07/11/24 22:00 07/13/24 05:18 40 MG Albuterol 2.5 mg Q4HPRN PRN NEB 07/11/24 14:30 Ipratropium [place] 0.5 mg Q4HR NEB 07/11/24 18:00 07/13/24 10:06 0.5 MG Ondansetron HCl 4 mg Q4HP PRN IV 07/11/24 14:30 07/12/24 01:49 4 MG Docusate Sodium 100 mg BIDPRN PRN PO 07/11/24 14:30 Morphine Sulfate 2 mg Q4HPRN PRN IV 07/11/24 14:30 07/12/24 01:49 2 MG Nitroglycerin 0.4 mg Q5MINP PRN SL 07/11/24 14:30 Acetaminophen/ Hydrocodone Bitart 1 tab Q6HPRN PRN PO 07/11/24 17:15 07/13/24 00:23 1 TAB Levofloxacin 50 ml @ 50 mls/hr DAILY IV 07/12/24 10:00 07/12/24 09:28 50 MLS/HR Pantoprazole Sodium 40 mg DAILY IV 07/12/24 10:00 07/12/24 09:28 40 MG Hydroxychloroquine Sulfate 200 mg DAILY PO 07/13/24 10:00 Tamsulosin HCl 0.4 mg QPM PO 07/12/24 22:00 07/12/24 20:39 0.4 MG Carvedilol 3.125 mg Q12HR PO 07/12/24 22:00 Hold Laboratory Results Laboratory Tests 07/12/24 06:58 Coagulation Test 07/12/24 12:05 D-Dimer, Quantitative 0.29 mg/L FEU (0.0-0.49) Urinalysis Test 07/11/24 18:22 Urine Color Yellow (Yellow) Urine Clarity Turbid (Clear) H Urine pH 5.5 (5.0-9.0) Urine Specific [place] 1.030 (1.001-1.035) Urine Protein 1+ (Negative) H Urine Ketones Trace (Negative) Urine Blood Negative /uL (Negative) Urine Nitrite Negative (Negative) Urine Bilirubin Negative (Negative) Urine Urobilinogen Normal mg/dL (Negative) Urine Leukocyte Esterase 1+ /uL (Negative) Urine RBC 23 /hpf (0 - 3) Urine Microscopic WBC 10 /HPF (0-3) H Urine Squamous Epithelial Cells Few /hpf (<5) Urine Calcium Oxalate Crystals Few (None Seen) Urine Bacteria None seen /hpf (None Seen) Urine Mucus Few (None Seen) Urine Glucose Normal mg/dL (Normal) Microbiology Microbiology Date/Time Source Procedure Growth Status 07/12/24 06:30 Nose MRSA Screen - Final Complete Labs and/or images reviewed: Labs reviewed by me, Image(s) reviewed by me Assessment/Plan Assessment/Plan Acute on chronic respiratory failure Acute COPD exacerbation: Albuterol Atrovent Acute community-acquired pneumonia: Levaquin: Consult for Dr. 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 Pulmonary embolism on Xarelto Ascending thoracic aortic aneurysm 5.5 cm: Consult for supervisor veneer Dr Rizvi Rheumatoid arthritis BPH Gastric cancer Cachexia Medication noncompliance Anemia Time spent 65 minutes Advanced care planning time 20 minutes Patient is full code Plan discussed with: Patient My Orders Orders - RAY CORCORAN MD Procedure Category Date Status Time * Cardiology Consult CONS 07/12/24 Transmitted 11:15 *Consult CONS 07/12/24 Transmitted / 11:22 Hydroxychloroquine PHA 07/13/24 In Process Tablet (Plaquenil Tab 10:00 Tamsulosin PHA 07/12/24 In Process Hydrochloride (Flomax) 22:00 Date of Service: Jul 13, 2024 Billing Provider: RAY CORCORAN MD Common Visit Codes: [id number] INP/OBS CARE(HIGH) RAY CORCORAN MD Jul 13, 2024 10:23
[2024-07-13] MEDS: hydrOXYchloroQUINE SULFATE 200 MG TAB PO SCH (11:20)
--- NOTE | 2024-07-13 21:26 | DVHPN2 ---
Progress Note - Dictate Date Seen: Jul 13, 2024 Medical Necessity Reason Pt with a Central, PICC or Fol: No Subjective Patient seen and examined at bedside. Breathing comfortably on room air. Overnight events reviewed. vital signs Vital Sign Date Time Temp Pulse Resp B/P (MAP) Pulse Ox O2 Delivery O2 Flow Rate FiO2 07/13/24 19:23 92 18 98 07/13/24 19:16 Room Air* 0 21 07/13/24 16:38 97.8 115/60 (78) 97.8 Total Intake and Output 07/12/24 07/12/24 07/13/24 15:00 23:00 07:00 Intake Total 50 ml 1005 ml 950 ml Output Total 350 ml 500 ml Balance 50 ml 655 ml 450 ml medications Current Medications Medications Dose Ordered Sig/Louie Route Start Time Stop Time Status Last Admin Dose Admin Rivaroxaban 15 mg QPM PO 07/11/24 18:00 07/13/24 18:12 15 MG Methylprednisolone Sodium Succinate 40 mg Q8HR IV 07/11/24 22:00 07/13/24 16:24 40 MG Albuterol 2.5 mg Q4HPRN PRN NEB 07/11/24 14:30 Ipratropium [place] 0.5 mg Q4HR NEB 07/11/24 18:00 07/13/24 19:16 0.5 MG Ondansetron HCl 4 mg Q4HP PRN IV 07/11/24 14:30 07/12/24 01:49 4 MG Docusate Sodium 100 mg BIDPRN PRN PO 07/11/24 14:30 Morphine Sulfate 2 mg Q4HPRN PRN IV 07/11/24 14:30 07/12/24 01:49 2 MG Nitroglycerin 0.4 mg Q5MINP PRN SL 07/11/24 14:30 Acetaminophen/ Hydrocodone Bitart 1 tab Q6HPRN PRN PO 07/11/24 17:15 07/13/24 16:23 1 TAB Levofloxacin 50 ml @ 50 mls/hr DAILY IV 07/12/24 10:00 07/13/24 11:20 50 MLS/HR Pantoprazole Sodium 40 mg DAILY IV 07/12/24 10:00 07/13/24 11:20 40 MG Hydroxychloroquine Sulfate 200 mg DAILY PO 07/13/24 10:00 07/13/24 11:20 200 MG Tamsulosin HCl 0.4 mg QPM PO 07/12/24 22:00 07/13/24 18:12 0.4 MG Carvedilol 3.125 mg Q12HR PO 07/12/24 22:00 Hold objective Gen.: Patient lying in bed in no apparent distress. Breathing on room air. Head: Normocephalic, atraumatic. Eyes: EOMI/PERRLA. Ears: Normal hearing. Normal anatomy. Neck/trachea: Trachea midline, supple. Nose: Normal external anatomy. Mouth: Moist mucous membranes. Chest: Decreased air entry bilaterally. No wheezing or rhonchi. Cardiovascular: Positive S1, positive S2. Regular rate and rhythm. Abdomen: Positive bowel sounds in all 4 quadrants. Soft, non-tender, non- distended. : Deferred. Rectal: Deferred. Skin: Warm, dry. Intact. Extremities: 2+ radial pulses bilaterally. No lower extremity edema. Neuro: Awake, alert, oriented x3. No gross motor or sensory deficits. Cranial nerves II through XII intact. Gait not assessed. 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 Monitor electrolytes. Supplement as necessary. CXR on 07/12/24 demonstrated left pleural effusion and bibasilar airspace disease, emphysema. Labs and imaging reviewed. Rest of plan as noted below. Plan: Supplemental oxygen PRN Titrate to keep O2 sats above 92%. Continue bronchodilators Continue steroids Continue antibiotics Incentive spirometry On Xarelto for AFib Cardiology recs appreciated. Protonix for GI prophylaxis Monitor renal function. Monitor electrolytes. Supplement as necessary. Monitor ins and outs. DVT prophylaxis. Prognosis: Poor given patient's multiple co-morbidities. Rest of plan per hospitalist and other consultants. Thank you Dr. Shaver for allowing me to participate in this patient's care. Further recommendations will depend on the patient's clinical course. Please do not hesitate to contact me if you have any questions or concerns. This medical document was created using an electronic medical record system with [employer] computerized dictation system. Although these documentations are being carefully reviewed, there may still be some phonetic and typographical changes. The errors are purely typographical, due to imperfection on the software program, and do not reflect any compromise in the patient's medical care. Plan discussed with: Patient, Other (KRISTINA Tena) SERA OROZCO MD Jul 13, 2024 21:26
[2024-07-14] VITALS (12 sets, daily range): BP systolic 104–127; BP diastolic 56–72; PULSE 76–95; RESP 17–20; TEMP 97.6–98.2; O2SAT 94–100
[2024-07-14 10:29] LABS: Hematocrit 37.1 % (41.0-53.0); Hemoglobin 12.4 g/dL (13.5-17.5); Mean Corpuscular Hemoglobin 33.9 pg (28.0-32.0); Mean Corpuscular Hgb Conc. 33.4 g/dL (32.0-36.0); Mean Corpuscular Volume 101.3 fL (80.0-100.0); Platelet Count (auto) 139 10^3/uL (140-450); Red Blood Cells 3.67 10^6/uL (4.5-5.90); Red Cell Distribution Width 13.7 % (11.8-14.3); White Blood Cell 17.3 10^3/uL (4.4-10.8)
[2024-07-14 10:35] LABS: Potassium 4.4 mmol/L (3.5-5.1)
[2024-07-14 10:36] LABS: Anion Gap 6 (5-15); Calcium 9.6 mg/dL (8.7-10.4); Carbon Dioxide 30 mmol/L (20-31); Chloride 96 mmol/L (98-107); Sodium 132 mmol/L (136-145)
[2024-07-14 10:37] LABS: Band Neutrophils % (manual) 0; Basophils % (manual) 0 (0.0-2.0); Blast Cells 0; Eosinophils % (manual) 0 (0-7); Metamyelocytes % 0; Myelocytes % 0; Promyelocytes % 0; Reactive Lymphocytes 0
[2024-07-14 10:41] LABS: BUN/Creatinine Ratio 29.9 (10.0-20.0)
[2024-07-14 10:44] LABS: Blood Urea Nitrogen 32 mg/dL (9-23); Glucose 166 mg/dL (74-106)
[2024-07-14] MEDS ORDERED: METH4PAK PO (11:22)
[2024-07-14] MEDS ORDERED: AZIT500T66 PO (11:22)
--- NOTE | 2024-07-14 11:23 | DVHPN2 ---
Reviewed: Care Plan, H&P, Labs, Medications, Previous Orders, Radiology Changes from previous H/P or p: No Changes Eyes: No Pain, No Vision change, No Conjunctivae inflammation, No Eyelid inflammation, No Other, No Redness ENT: No Ear pain, No Ear discharge, No Nose pain, No Nose discharge, No Nose congestion, No Mouth pain, No Mouth swelling, No Throat pain, No Throat swelling, No Other Cardiovascular: No Chest Pain, No Palpitations, No Orthopnea, No Paroxysmal Noc. Dyspnea, No Edema, No Lt Headedness, No Other Respiratory: No Cough, No Dry; Shortness of breath, SOB with excertion; No Wheezing, No Hemoptysis, No Pleuritic Pain, No Sputum, No Other Gastrointestinal: No Nausea, No Vomiting, No Abdominal Pain, No Diarrhea, No Constipation, No Melena, No Hematochezia, No Other Genitourinary: No Dysuria, No Frequency, No Incontinence, No Hematuria, No Retention, No Other Musculoskeletal: No other, No neck pain, No shoulder pain, No arm pain, No back pain, No hand pain, No leg pain, No foot pain Skin: No Rash, No Lesions, No Jaundice, No Bruising, No Other Objective Vitals Vital Signs Date Time Temp Pulse Resp B/P (MAP) Pulse Ox O2 Delivery O2 Flow Rate FiO2 07/14/24 10:34 76 18 100 07/14/24 10:30 Room Air* 0 21 07/14/24 09:00 98.2 104/71 (82) 98.2 Intake/Output Intake and Output 07/14/24 07:00 Intake Total 1260 ml Output Total 550 ml Balance 710 ml Intake Oral 1210 ml IV Total 50 ml Output Urine Total 550 ml # Voids 5 # Bowel Movements 1 Medications Current Medications Medications Dose Ordered Sig/Louie Route Start Time Stop Time Status Last Admin Dose Admin Rivaroxaban 15 mg QPM PO 07/11/24 18:00 07/13/24 18:12 15 MG Methylprednisolone Sodium Succinate 40 mg Q8HR IV 07/11/24 22:00 07/14/24 05:51 40 MG Albuterol 2.5 mg Q4HPRN PRN NEB 07/11/24 14:30 Ipratropium [place] 0.5 mg Q4HR NEB 07/11/24 18:00 07/14/24 10:28 0.5 MG Ondansetron HCl 4 mg Q4HP PRN IV 07/11/24 14:30 07/12/24 01:49 4 MG Docusate Sodium 100 mg BIDPRN PRN PO 07/11/24 14:30 Morphine Sulfate 2 mg Q4HPRN PRN IV 07/11/24 14:30 07/12/24 01:49 2 MG Nitroglycerin 0.4 mg Q5MINP PRN SL 07/11/24 14:30 Acetaminophen/ Hydrocodone Bitart 1 tab Q6HPRN PRN PO 07/11/24 17:15 07/14/24 03:32 1 TAB Levofloxacin 50 ml @ 50 mls/hr DAILY IV 07/12/24 10:00 07/14/24 09:11 50 MLS/HR Pantoprazole Sodium 40 mg DAILY IV 07/12/24 10:00 07/14/24 09:11 40 MG Hydroxychloroquine Sulfate 200 mg DAILY PO 07/13/24 10:00 07/14/24 09:12 200 MG Tamsulosin HCl 0.4 mg QPM PO 07/12/24 22:00 07/13/24 18:12 0.4 MG Carvedilol 3.125 mg Q12HR PO 07/12/24 22:00 Hold Laboratory Results Laboratory Tests 07/14/24 10:11 Chemistry Test 07/14/24 10:11 Calcium Level 9.6 mg/dL (8.7-10.4) Urinalysis Test 07/11/24 18:22 Urine Color Yellow (Yellow) Urine Clarity Turbid (Clear) H Urine pH 5.5 (5.0-9.0) Urine Specific [place] 1.030 (1.001-1.035) Urine Protein 1+ (Negative) H Urine Ketones Trace (Negative) Urine Blood Negative /uL (Negative) Urine Nitrite Negative (Negative) Urine Bilirubin Negative (Negative) Urine Urobilinogen Normal mg/dL (Negative) Urine Leukocyte Esterase 1+ /uL (Negative) Urine RBC 23 /hpf (0 - 3) Urine Microscopic WBC 10 /HPF (0-3) H Urine Squamous Epithelial Cells Few /hpf (<5) Urine Calcium Oxalate Crystals Few (None Seen) Urine Bacteria None seen /hpf (None Seen) Urine Mucus Few (None Seen) Urine Glucose Normal mg/dL (Normal) Microbiology Microbiology Date/Time Source Procedure Growth Status 07/12/24 06:30 Nose MRSA Screen - Final Complete Labs and/or images reviewed: Labs reviewed by me, Image(s) reviewed by me Assessment/Plan Assessment/Plan Acute on chronic respiratory failure Acute COPD exacerbation: Albuterol Atrovent Acute community-acquired pneumonia: Levaquin: Consult for Dr. Moser Acute CHF exacerbation ejection fraction 10-15 percent: Consult for spring internship Dr Rizvi Longstanding AFib on xarelto Aortic mitral and tricuspid regurgitation of severe degree Pulmonary embolism on Xarelto Ascending thoracic aortic aneurysm 5.5 cm: Consult for spring internship Dr Rizvi Rheumatoid arthritis BPH Gastric cancer Cachexia Medication noncompliance Anemia Patient feels better and wants to go home Plan discussed with: Patient Date of Service: Jul 14, 2024 Billing Provider: RAY CORCORAN MD Common Visit Codes: [id number] INP/OBS CARE(HIGH) RAY CORCORAN MD Jul 14, 2024 11:23
--- NOTE | 2024-07-14 11:28 | DVHDS2 ---
Discharge Summary Date of Admission Jul 11, 2024 at 14:22 Date of Discharge: Jul 14, 2024 Admitting Diagnosis Shortness of breaths Wounds: None Labs/Diagnostic Data: Laboratory Results Test 07/14/24 10:11 07/12/24 13:30 07/12/24 12:05 07/12/24 06:58 White Blood Count 17.3 10^3/uL (4.4-10.8) Red Blood Count 3.67 10^6/uL (4.5-5.90) Hemoglobin 12.4 g/dL (13.5-17.5) Hematocrit 37.1 % (41.0-53.0) Mean Corpuscular Volume 101.3 fL (80.0-100.0) Mean Corpuscular Hemoglobin 33.9 pg (28.0-32.0) Mean Corpuscular Hemoglobin Concent 33.4 g/dL (32.0-36.0) Red Cell Distribution Width 13.7 % (11.8-14.3) Platelet Count 139 10^3/uL (140-450) Mean Platelet Volume 8.7 fL (6.9-10.8) Neutrophils (%) (Auto) % (37.0-80.0) Lymphocytes (%) (Auto) % (10.0-50.0) Monocytes (%) (Auto) % (0.0-12.0) Basophils (%) (Auto) % (0.0-2.0) Neutrophils # (Auto) 10 ^3/uL (1.6-8.6) Lymphocytes # (Auto) 10 ^3/uL (0.4-5.4) Monocytes # (Auto) 10 ^3/uL (0-1.3) Sodium Level 132 mmol/L (136-145) Potassium Level 4.4 mmol/L (3.5-5.1) Chloride Level 96 mmol/L (98-107) Carbon Dioxide Level 30 mmol/L (20-31) Anion Gap 6 (5-15) Blood Urea Nitrogen 32 mg/dL (9-23) Creatinine 1.07 mg/dL (0.700-1.30) Glomerular Filtration Rate Calc 68 mL/min (>90) BUN/Creatinine Ratio 29.9 (10.0-20.0) Serum Glucose 166 mg/dL (74-106) Calcium Level 9.6 mg/dL (8.7-10.4) Influenza Type A Antigen Negative (Negative) Influenza Type B Antigen Negative (Negative) SARS-CoV-2 Antigen (Rapid) Negative (NEGATIVE) D-Dimer, Quantitative 0.29 mg/L FEU (0.0-0.49) Eosinophils (%) (Auto) 0.0 % (0.0-7.0) Eosinophils # (Auto) 0 10 ^3/uL (0-0.8) Basophils # (Auto) 0 10 ^3/uL (0-0.2) Nucleated Red Blood Cells 0.0 % Total Bilirubin 0.9 mg/dL (0.2-1.0) Aspartate Amino Transferase (AST) 22 U/L (13-40) Alanine Aminotransferase (ALT) 17 U/L (7-40) Alkaline Phosphatase 254 U/L (46-116) Total Protein 7.0 g/dL (5.7-8.2) Albumin 4.0 g/dL (3.2-4.8) Test 07/11/24 18:22 Urine Color Yellow (Yellow) Urine Clarity Turbid (Clear) Urine pH 5.5 (5.0-9.0) Urine Specific [place] 1.030 (1.001-1.035) Urine Protein 1+ (Negative) Urine Ketones Trace (Negative) Urine Blood Negative /uL (Negative) Urine Nitrite Negative (Negative) Urine Bilirubin Negative (Negative) Urine Urobilinogen Normal mg/dL (Negative) Urine Leukocyte Esterase 1+ /uL (Negative) Urine RBC 23 /hpf (0 - 3) Urine Microscopic WBC 10 /HPF (0-3) Urine Squamous Epithelial Cells Few /hpf (<5) Urine Calcium Oxalate Crystals Few (None Seen) Urine Bacteria None seen /hpf (None Seen) Urine Mucus Few (None Seen) Urine Glucose Normal mg/dL (Normal) Other Laboratory Tests 07/14/24 10:11 Brief Hx & Hospital Course: 83-year-old male with a history of COPD BPH rheumatoid arthritis gastric ulcer noncompliance CHF came in for shortness of breaths found to have community- acquired pneumonia treated with Levaquin pulmonary consult by Dr. Moser patient has a severe systolic congestive heart failure with the ejection fraction 10- 15 percent. Seen by Cardiology history of pulmonary embolism on Xarelto also has a ascending aortic aneurysm 5.5 cm which is chronic and stable. Patient feels better and wants to go home. Discharged home on azithromycin and Medrol Dosepak. Advised to continue all his home medications follow up with the [place] Patient Is noncompliant with the medications Consults/Reason for consult Pulmonology Dr. Moser Operations or Procedures None Condition at Discharge: Fair Final Diagnosis/Problems List Acute on chronic respiratory failure Acute COPD exacerbation: Albuterol Atrovent Acute community-acquired pneumonia: Levaquin: Consult for Dr. 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 Pulmonary embolism on Xarelto Ascending thoracic aortic aneurysm 5.5 cm: Consult for dishwashing machine repairer Dr Rizvi Rheumatoid arthritis BPH Gastric cancer Cachexia Medication noncompliance Anemia Discharge Disposition: Home Discharge Instruct/Medications Diet: Cardiac 2g Na,low cholest Activity: Light activity Follow Up/Referral: Follow up with your primary Dr at the [place] Resume all previous home meds Medications: Azithromycin Medrol Dosepak Transmitted to pharmacy 35 (Time taken for discharge summary 35 minutes) Discharge Statement: "Patient was advised to return to the ER or call 911 if any headaches, dizziness, shortness of breath, chest pain, abdominal pain, bleeding, fevers, or worsening of medical condition. Patient was counseled about treatment plan, medications, possible side effects, patientverbalized understanding. All questions were answered to the best of my ability. This discharge took greater then 30 minutes in planning, reviewing documentation, counseling the patient, and discussing with other team members." ASSESSMENT ASSESSMENT Hospital Course Improved Assessment Acute on chronic respiratory failure Acute COPD exacerbation: Albuterol Atrovent Acute community-acquired pneumonia: Levaquin: Consult for Dr. 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
--- NOTE | 2024-07-14 12:09 | DVHPN2 ---
Progress Note - Dictate Date Seen: Jul 14, 2024 Medical Necessity Reason Pt with a Central, PICC or Fol: No vital signs Vital Sign Date Time Temp Pulse Resp B/P (MAP) Pulse Ox O2 Delivery O2 Flow Rate FiO2 07/14/24 10:34 76 18 100 07/14/24 10:30 Room Air* 0 21 07/14/24 09:00 98.2 104/71 (82) 98.2 Total Intake and Output 07/13/24 07/13/24 07/14/24 15:00 23:00 07:00 Intake Total 280 ml 500 ml 480 ml Output Total 550 ml Balance 280 ml 500 ml -70 ml medications Current Medications Medications Dose Ordered Sig/Louie Route Start Time Stop Time Status Last Admin Dose Admin Rivaroxaban 15 mg QPM PO 07/11/24 18:00 07/13/24 18:12 15 MG Methylprednisolone Sodium Succinate 40 mg Q8HR IV 07/11/24 22:00 07/14/24 05:51 40 MG Albuterol 2.5 mg Q4HPRN PRN NEB 07/11/24 14:30 Ipratropium [place] 0.5 mg Q4HR NEB 07/11/24 18:00 07/14/24 10:28 0.5 MG Ondansetron HCl 4 mg Q4HP PRN IV 07/11/24 14:30 07/12/24 01:49 4 MG Docusate Sodium 100 mg BIDPRN PRN PO 07/11/24 14:30 Morphine Sulfate 2 mg Q4HPRN PRN IV 07/11/24 14:30 07/12/24 01:49 2 MG Nitroglycerin 0.4 mg Q5MINP PRN SL 07/11/24 14:30 Acetaminophen/ Hydrocodone Bitart 1 tab Q6HPRN PRN PO 07/11/24 17:15 07/14/24 03:32 1 TAB Levofloxacin 50 ml @ 50 mls/hr DAILY IV 07/12/24 10:00 07/14/24 09:11 50 MLS/HR Pantoprazole Sodium 40 mg DAILY IV 07/12/24 10:00 07/14/24 09:11 40 MG Hydroxychloroquine Sulfate 200 mg DAILY PO 07/13/24 10:00 07/14/24 09:12 200 MG Tamsulosin HCl 0.4 mg QPM PO 07/12/24 22:00 07/13/24 18:12 0.4 MG Carvedilol 3.125 mg Q12HR PO 07/12/24 22:00 Hold laboratory and microbiology Laboratory Tests 07/14/24 10:11 Test 07/14/24 10:11 Range/Units Serum Glucose 166 H 74-106 mg/dL Assessment/Plan Impression: Acute COPD exacerbation Acute hypoxemic respiratory failure Atelectasis CHF Patient seen and examined Events: Low oxygen requirements On 2 liters nasal cannula No distress Labs and imaging reviewed CXR on 07/12/24 demonstrated left pleural effusion and bibasilar airspace disease, emphysema. Plan: Supplemental oxygen PRN Titrate to keep O2 sats above 92%. Continue bronchodilators Continue steroids Continue antibiotics Incentive spirometry Pain control Avoid oversedation On Xarelto for AFib Cardiology recs appreciated. Protonix for GI prophylaxis Monitor renal function. Monitor electrolytes. Supplement as necessary. Monitor ins and outs. DVT prophylaxis. Plan discussed with: Patient YULIET BROWN MD Jul 14, 2024 12:09
[2024-07-14 14:43] LABS: Lymphocytes % (manual) 2 (10.0-50.0); Monocytes % (manual) 4 (0-12); Platelet Estimate Decreased
== END 2024-07-14 17:00 | disposition home or self-care (01) | DRG 175 ==
LOC: EDBD 11:30 → ER 11:39 → MERGE 14:22 → OVERFLOW 14:22 → TELE-WESTW 07-12 02:58
PROVIDERS: ADMIT Family Medicine; ATTEND Family Medicine
DX: I26.99 Other pulmonary embolism without acute cor pulmonale (principal); I50.23 Acute on chronic systolic (congestive) heart failure; J96.21 Acute and chronic respiratory failure with hypoxia; J15.9 Unspecified bacterial pneumonia; J44.1 Chronic obstructive pulmonary disease with (acute) exacerbation; N17.9 Acute kidney failure, unspecified; R64 Cachexia; J44.0 Chronic obstructive pulmonary disease with (acute) lower respiratory infection; C16.9 Malignant neoplasm of stomach, unspecified; I48.11 Longstanding persistent atrial fibrillation; Z68.1 Body mass index [BMI] 19.9 or less, adult; I11.0 Hypertensive heart disease with heart failure; M06.9 Rheumatoid arthritis, unspecified; D64.9 Anemia, unspecified; R62.7 Adult failure to thrive; F41.9 Anxiety disorder, unspecified; I08.3 Combined rheumatic disorders of mitral, aortic and tricuspid valves; N40.0 Benign prostatic hyperplasia without lower urinary tract symptoms; I71.21 Aneurysm of the ascending aorta, without rupture; Z88.2 Allergy status to sulfonamides; Z79.01 Long term (current) use of anticoagulants; Z82.49 Family history of ischemic heart disease and other diseases of the circulatory system; Z87.891 Personal history of nicotine dependence; Z91.148 Patient's other noncompliance with medication regimen for other reason; Z86.711 Personal history of pulmonary embolism; Z87.11 Personal history of peptic ulcer disease
CPT/HCPCS: 36415; 71045; 71275; 80048; 80053; 81001; 85007; 85025; 85027; 85379; 86850; 86900; 86901; 87081; 87426; 87804; 93005; 94640; G0378; J1956; J2405; J2470

== ENCOUNTER 2024-08-20 06:39 | Inpatient (IN) | payer OTHER, MEDICARE ==
[~2024-08-20] VITALS: Ht 180.3 cm; Wt 50.5 kg
[~2024-08-20 06:39] MED LIST changes: +AZIT500T66 PO; +METH4PAK PO
--- NOTE | 2024-08-20 07:00 | ED.PDOC ---
History of Present Illness HPI Comments 84-year-old male with PMHx A-Fib, CHF, RA, BPH, HTN presents with a chief complaint of SOB x 5 days. Patient states that he has had increasingly worse SOB over the past 5 days. Patient is currently sating at 97% on room air. Patient is able to speak in full, complete sentences. Patient is well-known to this ER for similar symptoms in the past and multiple admissions. Time Seen by MD: 06:25 Primary Care Provider: NC Reviewed Notes: Medications, Allergies Allergies: Coded Allergies: Sulfa Antibiotics (Verified Allergy, Severe, 05/08/24) Sulfabenzamide (Verified Allergy, Intermediate, 05/08/24) Sulfacetamide (Verified Allergy, Intermediate, 05/08/24) Sulfathiazole (Verified Allergy, Intermediate, 05/08/24) Metoprolol (Verified Adverse Reaction, Severe, 07/12/24) "don't feel very good" per patient Sitagliptin (Verified Adverse Reaction, Severe, 07/12/24) Pt states it made him "feel not very good" Home Meds Active Scripts Methylprednisolone (Medrol Dosepak) 4 Mg Jesús, 4 MG PO UD, #21 TAB UAD Prov:RAY CORCORAN MD 07/14/24 Azithromycin (Azithromycin) 500 Mg Tab, 1 TAB PO DAILY, #7 TAB Prov:RAY CORCORAN MD 07/14/24 Hydroxychloroquine Sulfate (Hydroxychloroquine Sulfat) 200 Mg Tab, 200 MG PO DAILY, #30 TAB 5 Refills Prov:CONNIE COLON MD 07/01/24 Hydrocodone-Acetaminophen (Hydrocodone Bitartrate/AC 5-325 mg) 1 Tab Tab, 1 TAB PO Q6HPRN PRN, #20 TAB Prov:CONNIE COLON MD 07/01/24 Rivaroxaban (XARELTO) 20 Mg Tab, 1 TAB PO QPM, #30 TAB 5 Refills Prov:CONNIE COLON MD 07/01/24 Albuterol Sulfate (VENTOLIN MDI) 90 Mcg Ih, 90 MCG IN QID PRN, #1 INH Prov:RAY CORCORAN MD 06/17/24 Spironolactone (Aldactone) 25 Mg Tab, 1 TAB PO DAILY, #30 TAB 5 Refills Prov:HERBIE LEI MD 05/11/24 Furosemide (Lasix) 40 Mg Tab, 40 MG PO DAILY for 30 Days, #30 TAB 5 Refills Prov:HERBIE LIE MD 05/11/24 Metoprolol Succinate (Metoprolol Succinate Er) 25 Mg Tab, 1 TAB PO DAILY, #30 TAB 1 Refill Prov:ZEENAT PRATT MD 04/20/24 Empagliflozin (Jardiance) 10 Mg Tab, 10 MG PO DAILY for 30 Days, #30 TAB 1 Refil l Prov:ZEENAT PRATT MD 04/20/24 Epinephrine (Anaphylaxis) (Auvi-Q) 0.1 Mg/0.1 Ml Inj, 0.1 MG IJ O PRN for 1 Day, #1 INJ Prov:MARCELO TOWNSEND MD 09/09/23 Reported Medications Hydroxychloroquine Sulfate (Hydroxychloroquine Sulfat) 200 Mg Tab, PO for 30 Days, MG 06/14/24 Zolpidem Tartrate (Ambien) 10 Mg Tab, 1 TAB PO QPM 09/20/23 Tamsulosin Hcl (Flomax) 0.4 Mg Cap, 0.4 MG PO DAILY, CAP 09/04/23 Information Source: Patient Mode of Arrival: Ambulatory Severity: Moderate Timing: Days Duration: Since onset Prehospital treatment: None Past Medical History PAST MEDICAL HISTORY: AFIB, CHF, COPD Surgical History: Hernia Repair, Tonsillectomy Family History Family History: Unknown Social History Smoker: Non-Smoker Alcohol: Denies ETOH Use Drugs: Denies Drug Use Lives In: Home Constitutional: denies: chills, diaphoresis, fatigue, fever, malaise, sweats, weakness, others EENTM: denies: blurred vision, double vision, ear bleeding, ear discharge, ear drainage, ear pain, ear ringing, eye pain, eye redness, hearing loss, mouth pain, mouth swelling, nasal discharge, nose bleeding, nose congestion, nose pain, photophobia, tearing, throat pain, throat swelling, voice changes, others Respiratory: reports: shortness of breath; denies: cough, hemoptysis, orthopnea, SOB at rest, SOB with excertion, stridor, wheezing, others Cardiovascular: denies: chest pain, dizzy spells, diaphoresis, Dyspnea on exer tion, edema, irregular heart beat, left arm pain, lightheadedness, palpitations, PND, syncope, others Gastrointestinal: denies: abdomen distended, abdominal pain, blood streaked bowels, constipated, diarrhea, dysphagia, difficulty swallowing, hematemesis, melena, nausea, poor appetite, poor fluid intake, rectal bleeding, rectal pain, vomiting, others Genitourinary: denies: burning, dysuria, flank pain, frequency, hematuria, incontinence, penile discharge, penile sore, pain, testicle pain, testicle swelling, urgency, others Neurological: denies: dizziness, fainting, headache, left sided numbness, left sided weakness, numbness, paresthesia, pre-existing deficit, right sided numbness, right sided weakness, seizure, speech problems, tingling, tremors, weakness, others Musculoskeletal: denies: back pain, gout, joint pain, joint swelling, muscle pain, muscle stiffness, neck pain, others Integumetry: denies: bruises, change in color, change in hair/nails, dryness, laceration, lesions, lumps, rash, wounds, others Allergic/Immunocompromised: denies: Difficulty Healing, Frequent Infections, Hives, Itching, others Hematologic/Lymphatic: denies: anemia, blood clots, easy bleeding, easy bruising, swollen glands, others Endocrine: denies: excessive hunger, excessive sweating, excessive thirst, excessive urination, flushing, intolerance to cold, intolerance to heat, unexplained weight gain, unexplained weight loss, others Psychiatric: denies: anxiety, bipolar disorder, depression, hopeless, panic disorder, schizophrenia, sleepless, suicidal, others All Other Systems: Reviewed and Negative Physical Exam General Appearance: Moderate Distress, Thin HEENT: Normal ENT Inspection, Pharynx Normal, TMs Normal Neck: Full Range of Motion, Non-Tender, Normal, Normal Inspection Respiratory: Chest Non-Tender, No Accessory Muscle Use, Other (Coarse breath sounds) Cardiovascular: No Edema, No JVD, No Murmur, No Gallop, Normal Peripheral Pulses, Regular Rate/Rhythm Breast Exam: Deferred Gastrointestinal: No Organomegaly, Non Tender, No Pulsatile Mass, Normal Bowel Sounds, Soft Genitalia: Deferred Pelvic: Deferred Rectal: Deferred Extremities: No calf tenderness, Normal capillary refill, Normal inspection, Normal range of motion, Non-tender, No pedal edema Musculoskeletal : Apperance: Normal Neurologic: Alert, facilities assistant II-XII nml as Tested, No Motor Deficits, Normal Affect, Normal Mood, No Sensory Deficits Cerebellar Function: NOT DONE Reflexes: NOT DONE Skin: Dry, Normal Color, Warm Peripheral Pulses: 3+ Radial (R), 3+ Radial (L) Lymphatic: No Adenopathy Was a procedure done? Was a procedure done?: No EKG EKG : Pulse Rate (adult): 110 Hallock: Normal Cardiac Rhythm: Afib Block: None Hypertrophy: LVH ST: Normal Differential Dx Considerations may include: CHF X-Ray, Labs, Meds, VS Vital Signs Date Time Temp Pulse Resp B/P (MAP) Pulse Ox O2 Delivery O2 Flow Rate FiO2 08/20/24 07:08 97.5 82 34 121/54 (76) 98 97.5 08/20/24 06:39 99.2 87 16 133/69 (90) 97 99.2 Lab Test 08/20/24 07:14 Range/Units White Blood Count Pending Red Blood Count Pending Hemoglobin Pending Hematocrit Pending Mean Corpuscular Volume Pending Mean Corpuscular Hemoglobin Pending Mean Corpuscular Hemoglobin Concent Pending Red Cell Distribution Width Pending Platelet Count Pending Mean Platelet Volume Pending Neutrophils (%) (Auto) Pending Lymphocytes (%) (Auto) Pending Monocytes (%) (Auto) Pending Basophils (%) (Auto) Pending Neutrophils # (Auto) Pending Lymphocytes # (Auto) Pending Monocytes # (Auto) Pending Sodium Level Pending Potassium Level Pending Chloride Level Pending Carbon Dioxide Level Pending Anion Gap Pending Blood Urea Nitrogen Pending Creatinine Pending Glomerular Filtration Rate Calc Pending BUN/Creatinine Ratio Pending Serum Glucose Pending Calcium Level Pending Troponin I High Sensitivity Pending B-Type Natriuretic Peptide Pending Patient alert. Complaining of shortness a breath. Vitals stable. Answering questions. EKG does show atrial fibrillation. LVH. Heart failure. Was given Lasix. He is on blood thinner. No leg swelling. Explained to the patient that he will be admitted for heart failure. Time of 1ST Reevaluation: 07:25 Reevaluation 1ST: Unchanged Patient Education/Counseling: Diagnosis, Treatment Family Education/Counseling: No Family Present Departure 1 Departure Time of Disposition: 07:24 Impression: Primary Impression: Acute CHF Qualified Codes: I50.41 - Acute combined systolic (congestive) and diastolic (congestive) heart failure Additional Impression: Atrial fibrillation with RVR Disposition: ADMITTED INPATIENT Admit to: Med Surg Condition: Guarded Critical Care Note Critical Care Time?: Yes (90 min-critical care time only) Critical care comment: Shortness a breath was given Lasix Stability Stability form required: No Heart Score Heart Score: Heart Score Response (Comments) Value History Slightly Suspicious 0 EKG Normal 0 Age >65 2 Risk Factors >3 or Hx ASHD 2 Troponin Normal limit 0 Total 4 I personally scribed for ZULMA PATEL MD ([email or web address]) on 08/20/24 at 07:00. Electronically submitted by Tristan Pinzon ([email or web address]). I personally scribed for ZULMA PATEL MD ([email or web address]) on 08/20/24 at 07:30. Electronically submitted by Tristan Pinzon ([email or web address]). ZULMA PATEL MD Aug 20, 2024 07:00
[2024-08-20 07:31] LABS: Basophils # (auto) 0.1 10 ^3/uL (0-0.2); Eosinophils # (auto) 0 10 ^3/uL (0-0.8); Eosinophils % (auto) 0.4 % (0.0-7.0); Hemoglobin 13.3 g/dL (13.5-17.5); Monocytes # (auto) 0.7 10 ^3/uL (0-1.3); Red Cell Distribution Width 14.3 % (11.8-14.3)
[2024-08-20 07:32] LABS: Chloride 104 mmol/L (98-107); Potassium 4.3 mmol/L (3.5-5.1); Sodium 138 mmol/L (136-145)
[2024-08-20 07:33] LABS: Anion Gap 3 (5-15); Basophils % (auto) 0.6 % (0.0-2.0); Carbon Dioxide 31 mmol/L (20-31); Hematocrit 39.5 % (41.0-53.0); Lymphocytes # (auto) 0.7 10 ^3/uL (0.4-5.4); Lymphocytes % (auto) 5.8 % (10.0-50.0); Mean Corpuscular Hemoglobin 34.4 pg (28.0-32.0); Mean Corpuscular Hgb Conc. 33.8 g/dL (32.0-36.0); Monocytes % (auto) 6.1 % (0.0-12.0); Neutrophils # (auto) 10.6 10 ^3/uL (1.6-8.6); Neutrophils % (auto) 87.1 % (37.0-80.0); Platelet Count (auto) 117 10^3/uL (140-450); Red Blood Cells 3.87 10^6/uL (4.5-5.90); White Blood Cell 12.2 10^3/uL (4.4-10.8)
[2024-08-20 07:34] LABS: Calcium 9.9 mg/dL (8.7-10.4)
[2024-08-20 07:38] LABS: BUN/Creatinine Ratio 15.8 (10.0-20.0); Blood Urea Nitrogen 19 mg/dL (9-23); Glucose 86 mg/dL (74-106)
[2024-08-20] MEDS: MAGNESIUM SULFATE 1GM/100ML 100 ML IV ONE (07:40)
[2024-08-20] MEDS: FUROSEMIDE 20 MG/2 ML VIAL IV ONE (07:40)
--- NOTE | 2024-08-20 07:55 | DVH ---
CHEST RADIOGRAPH Indication: sob Technique: Single frontal view of the chest was obtained COMPARISON: XY CHEST PORTABLE on DOS: 06/14/24, XY CHEST PORTABLE on DOS: 05/10/24, XY CHEST PORTABLE o n DOS: 05/08/24, XY CHEST PORTABLE on DOS: 04/17/24, XY CHEST PORTABLE on DOS: 03/13/24 FINDINGS: Lines and Tubes: None Lungs: Multifocal airspace disease. Unchanged chronic fibrotic changes. Pleura: No effusion. No pneumothorax. Cardiomediastinal contours: Unremarkable Bones: Unremarkable IMPRESSION: Multifocal airspace disease.
[2024-08-20 08:11] LABS: Urine Bacteria None Seen /hpf (None Seen)
[2024-08-20 08:22] LABS: Urine Blood Negative /uL (Negative); Urine Clarity Clear (Clear); Urine Color Yellow (Yellow); Urine Protein, UAD Negative (Negative); Urine Specific Gravity 1.012 (1.001-1.035); Urine Squamous Epithelial Cell None Seen /hpf (<5); Urine Urobilinogen Normal (Negative); Urine WBC < 1 /HPF (0-3)
[2024-08-20] MEDS ORDERED: ONDANSETRON HCL 4 MG/2 ML VIAL IV PRN (12:15)
[2024-08-20] MEDS ORDERED: MORPHINE SULFATE INJ 2 MG/ml SYRG IV PRN ×2 (12:15)
[2024-08-20] MEDS ORDERED: NITROGLYCERIN 0.4 MG SL TAB SL PRN (12:15)
--- NOTE | 2024-08-20 12:21 | DVHHP2 ---
History of Present Illness Reason for Visit: Shortness of Breath History of Present Illness Patient is a 84 year-old M with a significant PMHx of Systolic CHF (EF 10%), Hypertensive Heart Disease, A-Fibb, BPH, RA, Aortic Aneurysm (5.5CM) who presented to the ED with complaints of worsening shortness of breath for 5 days. Patient reports he has not been able to catch his breath, patient denies any other complaints. Past Medical History See HPI Review of Systems Constitutional: No: Fever, Chills, Sweats, Weakness, Malaise, Other Eyes: No: Pain, Vision change, Conjunctivae inflammation, Eyelid inflammation, Other, Redness ENT: No: Ear pain, Ear discharge, Nose pain, Nose discharge, Nose congestion, Mouth pain, Mouth swelling, Throat pain, Throat swelling, Other Respiratory: Shortness of breath, SOB with excertion, Wheezing, Sputum, Wheezing Cardiovascular: No: Chest Pain, Palpitations, Orthopnea, Paroxysmal Noc. Dyspnea, Edema, Lt Headedness, Other Gastrointestinal: No: Nausea, Vomiting, Abdominal Pain, Diarrhea, Constipation, Melena, Hematochezia, Other Genitourinary: No Dysuria, No Frequency, No Incontinence, No Hematuria, No Retention, No Other Musculoskeletal: No: other, neck pain, shoulder pain, arm pain, back pain, hand pain, leg pain, foot pain Skin: No: Rash, Lesions, Jaundice, Bruising, Other Neurological: No: Weakness, Numbness, Incoordination, Change in speech, Confusion, Seizures, Other Allergies: Coded Allergies: Sulfa Antibiotics (Verified Allergy, Severe, 05/08/24) Sulfabenzamide (Verified Allergy, Intermediate, 05/08/24) Sulfacetamide (Verified Allergy, Intermediate, 05/08/24) Sulfathiazole (Verified Allergy, Intermediate, 05/08/24) Metoprolol (Verified Adverse Reaction, Severe, 07/12/24) "don't feel very good" per patient Sitagliptin (Verified Adverse Reaction, Severe, 07/12/24) Pt states it made him "feel not very good" Exam Vital Signs Vital Signs Date Time Temp Pulse Resp B/P (MAP) Pulse Ox O2 Delivery O2 Flow Rate FiO2 08/20/24 09:06 97.5 82 22 117/59 (78) 98 97.5 08/20/24 07:16 Room Air* 0 21 General Appearance: Alert, Oriented X3, Cooperative, Other (Cachectic) Respiratory: Other (Wheezing with Creps) Cardiovascular: Other (Irregular) Abdominal: Normal bowel sounds, Soft Psych/Mental Status: Mental status NL Labs/Xrays Labs Test 08/20/24 10:18 08/20/24 08:10 08/20/24 07:14 Range/Units Troponin I High Sensitivity 22 </=54 ng/L Urine Color Yellow Yellow Urine Clarity Clear Clear Urine pH 7.0 5.0-9.0 Urine Specific [place] 1.012 1.001-1.035 Urine Protein Negative Negative Urine Ketones Negative Negative Urine Blood Negative Negative /uL Urine Nitrite Negative Negative Urine Bilirubin Negative Negative Urine Urobilinogen Normal Negative mg/dL Urine Leukocyte Esterase Negative Negative /uL Urine RBC 3 0 - 3 /hpf Urine Microscopic WBC < 1 0-3 /HPF Urine Squamous Epithelial Cells None seen <5 /hpf Urine Bacteria None seen None Seen /hpf Urine Glucose Normal Normal mg/dL White Blood Count 12.2 H 4.4-10.8 10^3/uL Red Blood Count 3.87 L 4.5-5.90 10^6/uL Hemoglobin 13.3 L 13.5-17.5 g/dL Hematocrit 39.5 L 41.0-53.0 % Mean Corpuscular Volume 102.0 H 80.0-100.0 fL Mean Corpuscular Hemoglobin 34.4 H 28.0-32.0 pg Mean Corpuscular Hemoglobin Concent 33.8 32.0-36.0 g/dL Red Cell Distribution Width 14.3 11.8-14.3 % Platelet Count 117 L 140-450 10^3/uL Mean Platelet Volume 8.2 6.9-10.8 fL Neutrophils (%) (Auto) 87.1 H 37.0-80.0 % Lymphocytes (%) (Auto) 5.8 L 10.0-50.0 % Monocytes (%) (Auto) 6.1 0.0-12.0 % Eosinophils (%) (Auto) 0.4 0.0-7.0 % Basophils (%) (Auto) 0.6 0.0-2.0 % Neutrophils # (Auto) 10.6 H 1.6-8.6 10 ^3/uL Lymphocytes # (Auto) 0.7 0.4-5.4 10 ^3/uL Monocytes # (Auto) 0.7 0-1.3 10 ^3/uL Eosinophils # (Auto) 0 0-0.8 10 ^3/uL Basophils # (Auto) 0.1 0-0.2 10 ^3/uL Nucleated Red Blood Cells 0.0 % Sodium Level 138 136-145 mmol/L Potassium Level 4.3 3.5-5.1 mmol/L Chloride Level 104 98-107 mmol/L Carbon Dioxide Level 31 20-31 mmol/L Anion Gap 3 L 5-15 Blood Urea Nitrogen 19 9-23 mg/dL Creatinine 1.20 0.700-1.30 mg/dL Glomerular Filtration Rate Calc 59 >90 mL/min BUN/Creatinine Ratio 15.8 10.0-20.0 Serum Glucose 86 74-106 mg/dL Calcium Level 9.9 8.7-10.4 mg/dL B-Type Natriuretic Peptide 381.16 0-100 pg/mL Assessment/Plan Assessment/Plan # Possible Aspiration PNA - Zosyn and Doxy - Sputum Sample # Acute Systolic CHF Exacerbation - Bumex IV - Monitor I&O # Possible Acute Resp Failure - Titrate Oxygen down # Aortic Aneurysm 5.5cm - Vascular consult Dr. Medrano # Frail / Cachexia Plan discussed with: Patient My Orders Orders - RUBY NG MD Procedure Category Date Status Time Admit ADMIT 08/20/24 Transmitted 12:06 Code Status CODE 08/20/24 Transmitted 12:06 Vital Signs [facility] 08/20/24 Transmitted 12:06 Review Orders With [facility] 08/20/24 Transmitted Adm. 12:06 Bedside Commode [facility] 08/20/24 Transmitted 12:06 Consistent DIET 08/20/24 Transmitted Carb(Ccho)Diabetes Lunch Sodium Chloride Lock PHA 08/20/24 Transmitted (Saline Lock Ns) 14:00 Acetaminophen Tablet PHA 08/20/24 Transmitted (Tylenol Tablet) 12:15 Notify Of Changes [facility] 08/20/24 Transmitted From Base 12:06 Advance Directive [facility] 08/20/24 Transmitted 12:06 Urinalysis LAB 08/20/24 Transmitted 12:06 Patient Condition ORDERS 08/20/24 Transmitted 12:06 Allergies [facility] 08/20/24 Transmitted 12:06 Hydrocodone-Acet PHA 08/20/24 Transmitted 5/325mg Tab ([place] 12:15 Ondansetron Hcl PHA 08/20/24 Transmitted (Zofran) 12:15 Morphine 2mg Iv Q4hprn PHA 08/20/24 Transmitted 12:15 Nitroglycerin PHA 08/20/24 Transmitted Sublingual (Ntrostat 12:15 Morphine Sulfate PHA 08/20/24 Transmitted Injection 12:15 Stat Ekg For Chest CHEPE 08/20/24 Transmitted Pain 12:06 Notify Md Of Changes [facility] 08/20/24 Transmitted From Base 12:06 Rivet Bucker For [facility] 08/20/24 Transmitted 24 Hours 12:06 Emergency Dysrhythmia CHEPE 08/20/24 Transmitted Protocol 12:06 Rhythm Strips Once CHEPE 08/20/24 Transmitted Every Shift 12:06 Oxygen By Nasal RT 08/20/24 Transmitted Cannula 12:06 Rivaroxaban Tablet PHA 08/20/24 Transmitted (Xarelto Tablet) 18:00 Bumetanide Injection PHA 08/20/24 Transmitted (Bumex Injection) 18:00 Albuterol Medneb PHA 08/20/24 Transmitted (Ventolin Medneb) 12:15 Ipratropium Medneb PHA 08/20/24 Transmitted (Atrovent Medneb) 12:15 Intake And Output CHEPE 08/20/24 Transmitted 12:06 * Cardiology Consult CONS 08/20/24 Transmitted 12:06 Consult CONS 08/20/24 Transmitted Vascular/Endovascular 12:06 Doxycycline Tablet PHA 08/20/24 Transmitted (Vibramycin Tablet) 22:00 Zosyn Extended PHA 08/20/24 Transmitted Infusion 14:00 Date of Service: Aug 20, 2024 Billing Provider: RUBY NG MD Common Visit Codes: [id number] INP/OBS CARE (HIGH) RUBY NG MD Aug 20, 2024 12:21
[2024-08-20] MEDS ORDERED: MORPHINE SULFATE 4 MG/ML SYR/VIAL IV PRN ×2 (13:00)
[2024-08-20] MEDS: SODIUM CHLOR 0.9% PF (SALINE LOCK) 10ML VIAL/SYR IV SCH (13:05)
[2024-08-20 13:10] VITALS: BP 130/58; PULSE 87; RESP 22; TEMP 97.5; O2SAT 97
--- NOTE | 2024-08-20 13:13 | DVHINCON2 ---
Date Seen: Aug 20, 2024 Referring Physician MD Boy Reason for Consultation Systolic CHF History of Present Illness This is an 84-year-old male patient who presents to the emergency room with chief complaint of generalized weakness and shortness of breath for four days prior to emergency room arrival. Cardiology has now been consulted at this time for CHF exacerbation. The patient denies any cardiac symptoms at time of assessment. Initial twelve lead electrocardiogram reveals atrial fibrillation with left ventricular hypertrophy (similar to previous EKG from prior visit). Significant past medical history includes longstanding persistent atrial fibrillation (on Xarelto therapy), congestive heart failure, hypertension, thoracic aortic aneurysm, pulmonary embolism (on Xarelto), COPD, benign prostatic hyperplasia, arthritis, anxiety, and previous tobacco use. 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 He also reports that he has not been taking all of his medications, specifically his heart failure medications. He also reports dietary indiscretions including frozen foods and Monegasque food. Past Medical History Past medical history reviewed. No other significant than mentioned above. Past Surgical History Bilateral hernia repair Hemorrhoidectomy Family History: Alcoholism G8 FATHER, Onset:Unknown (patient states his father left when he was a child and doesnt know much about him) FH: atrial fibrillation G8 MOTHER, Onset:60 years & older FH: migraines G8 MOTHER GERD G8 MOTHER, Onset:60 years & older Hypertension G8 MOTHER, Onset:50's - 60 Family History Family history reviewed. Social History Patient has a 10 pack-year history, quit smoking approximately 40 years ago Denies any illicit drug use Denies any alcohol use Allergies: Coded Allergies: Sulfa Antibiotics (Verified Allergy, Severe, 05/08/24) Sulfabenzamide (Verified Allergy, Intermediate, 05/08/24) Sulfacetamide (Verified Allergy, Intermediate, 05/08/24) Sulfathiazole (Verified Allergy, Intermediate, 05/08/24) Metoprolol (Verified Adverse Reaction, Severe, 07/12/24) "don't feel very good" per patient Sitagliptin (Verified Adverse Reaction, Severe, 07/12/24) Pt states it made him "feel not very good" Home Meds Active Scripts Methylprednisolone (Medrol Dosepak) 4 Mg Jesús, 4 MG PO UD, #21 TAB UAD Prov:RAY CORCORAN MD 07/14/24 Azithromycin (Azithromycin) 500 Mg Tab, 1 TAB PO DAILY, #7 TAB Prov:RAY CORCORAN MD 07/14/24 Hydroxychloroquine Sulfate (Hydroxychloroquine Sulfat) 200 Mg Tab, 200 MG PO DAILY, #30 TAB 5 Refills Prov:CONNIE COLON MD 07/01/24 Hydrocodone-Acetaminophen (Hydrocodone Bitartrate/AC 5-325 mg) 1 Tab Tab, 1 TAB PO Q6HPRN PRN, #20 TAB Prov:CONNIE COLON MD 07/01/24 Rivaroxaban (XARELTO) 20 Mg Tab, 1 TAB PO QPM, #30 TAB 5 Refills Prov:CONNIE COLON MD 07/01/24 Albuterol Sulfate (VENTOLIN MDI) 90 Mcg Ih, 90 MCG IN QID PRN, #1 INH Prov:RAY CORCORAN MD 06/17/24 Spironolactone (Aldactone) 25 Mg Tab, 1 TAB PO DAILY, #30 TAB 5 Refills Prov:HERBIE LEI MD 05/11/24 Furosemide (Lasix) 40 Mg Tab, 40 MG PO DAILY for 30 Days, #30 TAB 5 Refills Prov:HERBIE LEI MD 05/11/24 Metoprolol Succinate (Metoprolol Succinate Er) 25 Mg Tab, 1 TAB PO DAILY, #30 TAB 1 Refill Prov:ZEENAT PRATT MD 04/20/24 Empagliflozin (Jardiance) 10 Mg Tab, 10 MG PO DAILY for 30 Days, #30 TAB 1 Refill Prov:ZEENAT PRATT MD 04/20/24 Epinephrine (Anaphylaxis) (Auvi-Q) 0.1 Mg/0.1 Ml Inj, 0.1 MG IJ O PRN for 1 Day, #1 INJ Prov:MARCELO TOWNSEND MD 09/09/23 Reported Medications Hydroxychloroquine Sulfate (Hydroxychloroquine Sulfat) 200 Mg Tab, PO for 30 Days, MG 06/14/24 Zolpidem Tartrate (Ambien) 10 Mg Tab, 1 TAB PO QPM 09/20/23 Tamsulosin Hcl (Flomax) 0.4 Mg Cap, 0.4 MG PO DAILY, CAP 09/04/23 Home Meds Home medications reviewed. Current Medications Current Medications Medications (Trade) Dose Ordered Sig/Louie Route PRN Reason Start Time Stop Time Status Last Admin Sodium Chloride (Saline Lock Ns) 10 ml Q8HR IV 08/20/24 14:00 Acetaminophen (Tylenol Tablet) 650 mg Q6HP PRN PO PAIN SCALE 1-3 OR TEMP>100.4 08/20/24 12:15 Acetaminophen/ Hydrocodone Bitart ([place] 5/325MG Tab) 1 tab Q4HP PRN PO MODERATE PAIN (4-6 PAIN SCALE) 08/20/24 12:15 Ondansetron HCl (Zofran) 4 mg Q4HP PRN IV NAUSEA / VOMITING 08/20/24 12:15 Morphine Sulfate 2 mg Q4HPRN PRN IV SEVERE PAIN (7-10 PAIN SCALE) 08/20/24 12:15 UNV Nitroglycerin (Ntrostat Sublingual) 0.4 mg Q5MINP PRN SL FOR CHEST PAIN 08/20/24 12:15 Morphine Sulfate 2 mg Q30M PRN IV FOR CHEST PAIN 08/20/24 12:15 UNV Rivaroxaban (Xarelto Tablet) 20 mg QPM PO 08/20/24 18:00 Bumetanide (Bumex Injection) 1 mg BIDD IV 08/20/24 18:00 Albuterol (Ventolin Medneb) 2.5 mg Q6HPRN PRN NEB SHORTNESS OF BREATH 08/20/24 12:15 Ipratropium [place] (Atrovent Medneb) 0.5 mg Q6HPRN PRN NEB SHORTNESS OF BREATH 08/20/24 12:15 Doxycycline Monohydrate (Vibramycin Tablet) 100 mg Q12HR PO 08/20/24 22:00 Piperacillin Sod/ Tazobactam Sod 100 ml @ 25 mls/hr Q8HR IV 08/20/24 14:00 Review of Systems Constitutional: Generalized weakness Ears, Nose, & Throat: No symptom reported Eyes: No symptom reported Neurological: No symptoms reported Pulmonary/Respiratory: Shortness of breath Cardiovascular: No symptom reported Gastrointestinal: No symptom reported Genitourinary: No symptom reported Musculoskeletal: No symptom reported Skin: No symptom reported Psychiatric: No symptom reported Endocrine: No symptom reported Hematologic/Lymphatic: No symptom reported Vital Signs Vital Signs Date Time Temp Pulse Resp B/P (MAP) Pulse Ox O2 Delivery O2 Flow Rate FiO2 08/20/24 11:00 87 22 130/58 (82) 97 08/20/24 09:06 97.5 97.5 08/20/24 07:16 Room Air* 0 21 Physical Exam General Appearance: Cooperative. Thin Pulmonary/Respiratory: Coarse bilateral breaths sounds. Cardiovascular/Chest: Irregular rate and rhythm. Peripheral Pulses: 2+ Radial (R). 2+ Radial (L). 1+ Pedal (R). 1+ Pedal (L) Abdominal Exam: Normal bowel sounds. Ankle Exam: Negative ankle edema Lower extremities: Negative lower extremity edema Neuro/Mental Status: A/OX4, coherent. Thoughts/Psych: Normal thought pattern. Appropriate mood and affect. Good judgment and insight. Appearance: No acute distress. Skin Exam: Normal inspection. Normal color. Warm and dry. Labs/Diagnostic Data Labs Test 08/20/24 10:18 08/20/24 08:10 08/20/24 07:14 Range/Units Troponin I High Sensitivity 22 </=54 ng/L Urine Color Yellow Yellow Urine Clarity Clear Clear Urine pH 7.0 5.0-9.0 Urine Specific [place] 1.012 1.001-1.035 Urine Protein Negative Negative Urine Ketones Negative Negative Urine Blood Negative Negative /uL Urine Nitrite Negative Negative Urine Bilirubin Negative Negative Urine Urobilinogen Normal Negative mg/dL Urine Leukocyte Esterase Negative Negative /uL Urine RBC 3 0 - 3 /hpf Urine Microscopic WBC < 1 0-3 /HPF Urine Squamous Epithelial Cells None seen <5 /hpf Urine Bacteria None seen None Seen /hpf Urine Glucose Normal Normal mg/dL White Blood Count 12.2 H 4.4-10.8 10^3/uL Red Blood Count 3.87 L 4.5-5.90 10^6/uL Hemoglobin 13.3 L 13.5-17.5 g/dL Hematocrit 39.5 L 41.0-53.0 % Mean Corpuscular Volume 102.0 H 80.0-100.0 fL Mean Corpuscular Hemoglobin 34.4 H 28.0-32.0 pg Mean Corpuscular Hemoglobin Concent 33.8 32.0-36.0 g/dL Red Cell Distribution Width 14.3 11.8-14.3 % Platelet Count 117 L 140-450 10^3/uL Mean Platelet Volume 8.2 6.9-10.8 fL Neutrophils (%) (Auto) 87.1 H 37.0-80.0 % Lymphocytes (%) (Auto) 5.8 L 10.0-50.0 % Monocytes (%) (Auto) 6.1 0.0-12.0 % Eosinophils (%) (Auto) 0.4 0.0-7.0 % Basophils (%) (Auto) 0.6 0.0-2.0 % Neutrophils # (Auto) 10.6 H 1.6-8.6 10 ^3/uL Lymphocytes # (Auto) 0.7 0.4-5.4 10 ^3/uL Monocytes # (Auto) 0.7 0-1.3 10 ^3/uL Eosinophils # (Auto) 0 0-0.8 10 ^3/uL Basophils # (Auto) 0.1 0-0.2 10 ^3/uL Nucleated Red Blood Cells 0.0 % Sodium Level 138 136-145 mmol/L Potassium Level 4.3 3.5-5.1 mmol/L Chloride Level 104 98-107 mmol/L Carbon Dioxide Level 31 20-31 mmol/L Anion Gap 3 L 5-15 Blood Urea Nitrogen 19 9-23 mg/dL Creatinine 1.20 0.700-1.30 mg/dL Glomerular Filtration Rate Calc 59 >90 mL/min BUN/Creatinine Ratio 15.8 10.0-20.0 Serum Glucose 86 74-106 mg/dL Calcium Level 9.9 8.7-10.4 mg/dL B-Type Natriuretic Peptide 381.16 0-100 pg/mL Assessment Acute on chronic decompensated HFrEF, NYHA class III Longstanding persistent atrial fibrillation, Stage 3c (on Xarelto) Hypertension Severe aortic, mitral, and tricuspid regurgitation Ascending thoracic aortic aneurysm, 5.5cm COPD Recent history of pulmonary embolism (on Xarelto) Cachexia Anxiety Medical noncompliance Plan/Recommendation We will continue with the following plan/recommendations (Dr. Salazar): * Transthoracic echocardiogram from 06/27/2024 reveals LVEF 10-15% with biatrial enlargement * Initiate guideline directed medical therapy for CHF as tolerated * Initiate beta-tan when patient euvolemic * Add MRA (spironolactone) with stable potassium * Diuretics as tolerated * [id number] VASc score: 6 points, HAS-BLED score: 2 points * Continue Xarelto therapy * Recommend beta-tan for rate control when euvolemic; the patient adamantly refuses to take any beta-blockers * Avoid antiarrhythmic agent given persistent atrial fibrillation * Close Cardiac surveillance * Monitor and replete electrolytes as needed, keep potassium greater than four and magnesium greater than two * Risk factor modifications, counseled * Medication adherence * Adherence to cardiac diet Case discussed with . Continue with medical management. Thank you for allowing us to care for this patient. Please call with any questions or concerns. Critical care time spent: 44 minutes This medical document was created using an electronic medical record system with voice recognition software and computerized dictation system. Although this document has been carefully reviewed, there might still be some phonetic and typographical errors. Occasional wrong-word or ``sound-alike substitutions may have occurred due to the inherent limitations of voice recognition software. These areas are purely typographical due to imperfections of the software programs and do not reflect any compromise in the patient's medical care. Please read the chart carefully and recognize, using context, where these substitutions have occurred. Plan discussed with: Patient NYHA Physical activity limitations: Class3(Marked) ordinary (activity causes symtoms) Date of Service: Aug 20, 2024 Billing Provider: LURDES MOON Cardiology Common Codes: [id number] INP/OBS CARE (High) Cardiology Consultation Codes: [id number] CONSULT <45MIN LURDES MOON Aug 20, 2024 13:13
[2024-08-20 14:05] VITALS: O2SAT 96
[2024-08-20] MEDS: PIPERACILLIN-TAZOB 3.375GM 100 ML IV SCH (14:10)
[2024-08-20] MEDS: ACETAMINOPHEN 325 MG TAB PO PRN (16:24)
[2024-08-20] MEDS: BUMETANIDE 1mg/4ml VIAL (0.25mg/ml) IV SCH (17:32)
[2024-08-20] MEDS: RIVAROXABAN 20 MG TAB PO SCH ×2 (17:37→20:02)
[2024-08-20 18:03] VITALS: BP 120/67; PULSE 85; RESP 20; TEMP 98; O2SAT 97
[2024-08-20 18:36] VITALS: PULSE 85; RESP 97; O2SAT 97
[2024-08-20 20:00] VITALS: PULSE 147; PULSE 89; RESP 20; O2SAT 95
[2024-08-20 21:00] VITALS: BP 117/56; PULSE 89; RESP 18; TEMP 97.7; O2SAT 95
[2024-08-20] MEDS: DOXYCYCLINE 100 MG TAB/CAP PO SCH (21:21)
[2024-08-20] MEDS: SACUBITRIL-VALSARTAN 24mg/26mg TAB PO SCH (22:00)
[2024-08-20] MEDS: HYDROcodone-ACET 5/325MG TAB PO PRN (23:28)
[2024-08-21] VITALS (13 sets, daily range): BP systolic 110–132; BP diastolic 44–69; PULSE 80–113; RESP 16–22; TEMP 96.2–97.9; O2SAT 95–100
[2024-08-21 06:48] LABS: Basophils # (auto) 0 10 ^3/uL (0-0.2); Basophils % (auto) 0.4 % (0.0-2.0); Eosinophils # (auto) 0 10 ^3/uL (0-0.8); Eosinophils % (auto) 0.5 % (0.0-7.0); Hematocrit 40.6 % (41.0-53.0); Hemoglobin 13.7 g/dL (13.5-17.5); Lymphocytes # (auto) 0.9 10 ^3/uL (0.4-5.4); Lymphocytes % (auto) 11.5 % (10.0-50.0); Mean Corpuscular Hemoglobin 34.3 pg (28.0-32.0); Mean Corpuscular Hgb Conc. 33.8 g/dL (32.0-36.0); Mean Corpuscular Volume 101.3 fL (80.0-100.0); Monocytes # (auto) 0.6 10 ^3/uL (0-1.3); Monocytes % (auto) 7.4 % (0.0-12.0); Neutrophils # (auto) 6.6 10 ^3/uL (1.6-8.6); Neutrophils % (auto) 80.2 % (37.0-80.0); Platelet Count (auto) 117 10^3/uL (140-450); Red Blood Cells 4.01 10^6/uL (4.5-5.90); White Blood Cell 8.2 10^3/uL (4.4-10.8)
[2024-08-21 07:10] LABS: Chloride 102 mmol/L (98-107); Potassium 4.4 mmol/L (3.5-5.1); Sodium 137 mmol/L (136-145)
[2024-08-21 07:11] LABS: Anion Gap 5 (5-15); Calcium 9.8 mg/dL (8.7-10.4); Carbon Dioxide 30 mmol/L (20-31)
[2024-08-21 07:16] LABS: BUN/Creatinine Ratio 14.8 (10.0-20.0); Blood Urea Nitrogen 19 mg/dL (9-23); Glucose 82 mg/dL (74-106); Triglycerides 64 mg/dL (< 150)
[2024-08-21 07:17] LABS: LDL Cholesterol 50 mg/dL (< 100); Magnesium 2.3 mg/dL (1.6-2.6)
[2024-08-21 07:18] LABS: Cholesterol 119 mg/dL (< 200); HDL Cholesterol 53 mg/dL (40-59)
[2024-08-21] MEDS: EMPAGLIFLOZIN 10 MG TAB PO SCH (10:00)
[2024-08-21] MEDS: IPRATROPIUM BROM 0.5 MG/2.5ML INH SOL NEB PRN (10:03)
[2024-08-21] MEDS: ALBUTEROL SULF 2.5 MG/0.5ML(0.5%) NEB SOLN NEB PRN (10:03)
--- NOTE | 2024-08-21 12:29 | DVHPN2 ---
Subjective Seen and examined at bedside, very frail cachectic. Patient wishes to be a DNR/DNI no acute interventions. Considering hospice. Changes from previous H/P or p: No Changes Eyes: No Pain, No Vision change, No Conjunctivae inflammation, No Eyelid inflammation, No Other, No Redness ENT: No Ear pain, No Ear discharge, No Nose pain, No Nose discharge, No Nose congestion, No Mouth pain, No Mouth swelling, No Throat pain, No Throat swelling, No Other Cardiovascular: No Chest Pain, No Palpitations, No Orthopnea, No Paroxysmal Noc. Dyspnea, No Edema, No Lt Headedness, No Other Respiratory: No Cough, No Dry, No Shortness of breath, No SOB with excertion, No Wheezing, No Hemoptysis, No Pleuritic Pain, No Sputum, No Other Gastrointestinal: No Nausea, No Vomiting, No Abdominal Pain, No Diarrhea, No Constipation, No Melena, No Hematochezia, No Other Genitourinary: No Dysuria, No Frequency, No Incontinence, No Hematuria, No Retention, No Other Musculoskeletal: No other, No neck pain, No shoulder pain, No arm pain, No back pain, No hand pain, No leg pain, No foot pain Skin: No Rash, No Lesions, No Jaundice, No Bruising, No Other Objective Vitals Vital Signs Date Time Temp Pulse Resp B/P (MAP) Pulse Ox O2 Delivery O2 Flow Rate FiO2 08/21/24 10:14 102 20 100 08/21/24 10:05 Room Air 08/21/24 10:05 0 21 08/21/24 09:00 97.4 124/69 (87) 97.4 Intake/Output Intake and Output 08/21/24 07:00 Intake Total 1100 ml Output Total 1700 ml Balance -600 ml Intake Oral 850 ml IV Total 250 ml Output Urine Total 1700 ml # Bowel Movements 2 Exam General Appearance: Alert, Oriented X3, Cooperative, Other (Cachectic) Respiratory: Other (Wheezing with Creps) Cardiovascular: Other (Irregular) Abdominal: Normal bowel sounds, Soft Psych/Mental Status: Mental status NL Medications Current Medications Medications Dose Ordered Sig/Louie Route Start Time Stop Time Status Last Admin Dose Admin Sodium Chloride 10 ml Q8HR IV 08/20/24 14:00 08/21/24 05:34 10 ML Acetaminophen 650 mg Q6HP PRN PO 08/20/24 12:15 08/20/24 16:24 650 MG Acetaminophen/ Hydrocodone Bitart 1 tab Q4HP PRN PO 08/20/24 12:15 08/21/24 11:37 1 TAB Ondansetron HCl 4 mg Q4HP PRN IV 08/20/24 12:15 Morphine Sulfate 2 mg Q4HPRN PRN IV 08/20/24 12:15 UNV Nitroglycerin 0.4 mg Q5MINP PRN SL 08/20/24 12:15 Morphine Sulfate 2 mg Q30M PRN IV 08/20/24 12:15 UNV Bumetanide 1 mg BIDD IV 08/20/24 18:00 08/21/24 05:36 1 MG Albuterol 2.5 mg Q6HPRN PRN NEB 08/20/24 12:15 08/21/24 10:03 2.5 MG Ipratropium [place] 0.5 mg Q6HPRN PRN NEB 08/20/24 12:15 08/21/24 10:03 0.5 MG Doxycycline Monohydrate 100 mg Q12HR PO 08/20/24 22:00 08/20/24 21:21 100 MG Piperacillin Sod/ Tazobactam Sod 100 ml @ 25 mls/hr Q8HR IV 08/20/24 14:00 08/21/24 05:34 25 MLS/HR Morphine Sulfate 2 mg Q4HPRN PRN IV 08/20/24 13:00 Morphine Sulfate 2 mg Q30M PRN IV 08/20/24 13:00 Sacubitril/ Valsartan 1 tab BID PO 08/20/24 22:00 Hold Empaglifozin 10 mg DAILY PO 08/21/24 10:00 Rivaroxaban 20 mg QPM PO 08/20/24 20:00 08/20/24 20:02 20 MG Laboratory Results Laboratory Tests 08/21/24 05:50 Chemistry Test 08/21/24 05:50 Calcium Level 9.8 mg/dL (8.7-10.4) Magnesium Level 2.3 mg/dL (1.6-2.6) Lipid panel Test 08/21/24 05:50 Cholesterol Level 119 mg/dL (< 200) HDL Cholesterol 53 mg/dL (40-59) Triglycerides Level 64 mg/dL (< 150) HgA1c, TSH Test 08/21/24 05:50 Thyroid Stimulating Hormone (TSH) 3.11 uIU/mL (0.55-4.78) Urinalysis Test 08/20/24 08:10 Urine Color Yellow (Yellow) Urine Clarity Clear (Clear) Urine pH 7.0 (5.0-9.0) Urine Specific [place] 1.012 (1.001-1.035) Urine Protein Negative (Negative) Urine Ketones Negative (Negative) Urine Blood Negative /uL (Negative) Urine Nitrite Negative (Negative) Urine Bilirubin Negative (Negative) Urine Urobilinogen Normal mg/dL (Negative) Urine Leukocyte Esterase Negative /uL (Negative) Urine RBC 3 /hpf (0 - 3) Urine Microscopic WBC < 1 /HPF (0-3) Urine Squamous Epithelial Cells None seen /hpf (<5) Urine Bacteria None seen /hpf (None Seen) Urine Glucose Normal mg/dL (Normal) Assessment/Plan Assessment/Plan # Possible Aspiration PNA - Zosyn and Doxy - Sputum Sample # Acute Systolic CHF Exacerbation - Bumex IV - Monitor I&O # Possible Acute Resp Failure - Titrate Oxygen down # Aortic Aneurysm 5.5cm - Vascular consult Dr. Medrano # Frail / Cachexia # Goals of care discussion >17 mins DNR/DNI Plan discussed with: Patient My Orders Orders - RUBY NG MD Procedure Category Date Status Time Morphine Sulfate PHA 08/20/24 In Process Injection 13:00 Morphine Sulfate PHA 08/20/24 In Process Injection 13:00 DNR CHEPE 08/21/24 In Process Code Status CODE 08/21/24 Transmitted 12:25 Date of Service: Aug 21, 2024 Billing Provider: RUBY NG MD Common Visit Codes: [id number] INP/OBS CARE(HIGH) Secondary Visit Codes: [id number] CARE PLAN 30 MINUTES RUBY NG MD Aug 21, 2024 12:29
--- NOTE | 2024-08-21 13:51 | DVHPN2 ---
Consult Progress Note Date Seen: Aug 21, 2024 Objective vital signs Vital Sign Date Time Temp Pulse Resp B/P (MAP) Pulse Ox O2 Delivery O2 Flow Rate FiO2 08/21/24 10:14 102 20 100 08/21/24 10:05 Room Air 08/21/24 10:05 0 21 08/21/24 09:00 97.4 124/69 (87) 97.4 Total Intake and Output 08/20/24 08/20/24 08/21/24 15:00 23:00 07:00 Intake Total 100 ml 50 ml 950 ml Output Total 1050 ml 200 ml 450 ml Balance -950 ml -150 ml 500 ml medications Current Medications Medications Dose Ordered Sig/Louie Route Start Time Stop Time Status Last Admin Dose Admin Sodium Chloride 10 ml Q8HR IV 08/20/24 14:00 08/21/24 05:34 10 ML Acetaminophen 650 mg Q6HP PRN PO 08/20/24 12:15 08/20/24 16:24 650 MG Acetaminophen/ Hydrocodone Bitart 1 tab Q4HP PRN PO 08/20/24 12:15 08/21/24 11:37 1 TAB Ondansetron HCl 4 mg Q4HP PRN IV 08/20/24 12:15 Morphine Sulfate 2 mg Q4HPRN PRN IV 08/20/24 12:15 UNV Nitroglycerin 0.4 mg Q5MINP PRN SL 08/20/24 12:15 Morphine Sulfate 2 mg Q30M PRN IV 08/20/24 12:15 UNV Bumetanide 1 mg BIDD IV 08/20/24 18:00 08/21/24 05:36 1 MG Albuterol 2.5 mg Q6HPRN PRN NEB 08/20/24 12:15 08/21/24 10:03 2.5 MG Ipratropium [place] 0.5 mg Q6HPRN PRN NEB 08/20/24 12:15 08/21/24 10:03 0.5 MG Doxycycline Monohydrate 100 mg Q12HR PO 08/20/24 22:00 08/20/24 21:21 100 MG Piperacillin Sod/ Tazobactam Sod 100 ml @ 25 mls/hr Q8HR IV 08/20/24 14:00 08/21/24 13:23 25 MLS/HR Morphine Sulfate 2 mg Q4HPRN PRN IV 08/20/24 13:00 Morphine Sulfate 2 mg Q30M PRN IV 08/20/24 13:00 Sacubitril/ Valsartan 1 tab BID PO 08/20/24 22:00 Hold laboratory and microbiology Laboratory Tests 08/21/24 05:50 Test 08/21/24 05:50 Range/Units Serum Glucose 82 74-106 mg/dL Problem List/Assessment/Plan Problem List/Assessment/Plan 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 Salazar) * Transthoracic echocardiogram from 06/27/2024 reveals LVEF 10-15% with biatrial enlargement * Guideline directed medical therapy for CHF as tolerated * Refuses BB, Entresto, SGLT inhibitor * Diuretics as tolerated, currently on Bumex * DOAC, Xarelto therapy. Discontinued by primary care team * [id number] VASc score: 6 points, HAS-BLED score: 2 points * Rate control, recommend beta-tan, patient refuses. CCBs contraindicated * Avoid antiarrhythmic agent given persistent atrial fibrillation * Monitor and replete electrolytes as needed, K>4 and Mg>2 * Risk factor modifications, counseled * Medication adherence * Adherence to cardiac diet Patient refusing medications. Primary care team may refer for hospice care. Kindly call if in need to re-consul. We will sign off at this time. Thank you for allowing us to care for this patient. This medical document was created using an electronic medical record system with voice recognition software and computerized dictation system. Although this document has been carefully reviewed, there might still be some phonetic and typographical errors. Occasional wrong-word or ``sound-alike substitutions may have occurred due to the inherent limitations of voice recognition software. These areas are purely typographical due to imperfections of the software programs and do not reflect any compromise in the patient's medical care. Please read the chart carefully and recognize, using context, where these substitutions have occurred. Plan discussed with: Patient, Other Date of Service: Aug 21, 2024 Billing Provider: BARRY,ALANA [employer] Cardiology Common Codes: [id number] HOSP CARE(ALANA Arrington [employer] Aug 21, 2024 13:51
[2024-08-22] VITALS (11 sets, daily range): BP systolic 104–127; BP diastolic 46–73; PULSE 70–140; RESP 12–24; TEMP 97.4–98.1; O2SAT 93–98
--- NOTE | 2024-08-22 06:40 | DVHCONRES ---
Date Seen: Aug 22, 2024 Resident Creating Document: EFFIE OLSON Jr., MD Referring Physician sung Reason for Consultation Abdominal aortic aneurysm History of Present Illness This is an 84-year-old male patient who presents to the emergency room with chief complaint of generalized weakness and shortness of breath for four days prior to emergency room arrival. Cardiology has now been consulted at this time for CHF exacerbation. The patient denies any cardiac symptoms at time of assessment. Significant past medical history includes longstanding persistent atrial fibrillation (on Xarelto therapy), congestive heart failure, hypertension, thoracic aortic aneurysm, pulmonary embolism (on Xarelto), COPD, benign prostatic hyperplasia, arthritis, anxiety, and previous tobacco use. The patient reports he follows up with a physics faculty member at the [facility]. He also reports that he has not been taking all of his medications, specifically his heart failure medications. Patient has a history of a 5.5 cm abdominal aortic aneurysm currently asymptomatic Past Medical History MHx of Systolic CHF (EF 10%), Hypertensive Heart Disease, A-Fibb, BPH, RA, Aortic Aneurysm (5.5CM) Family History: Alcoholism G8 FATHER, Onset:Unknown (patient states his father left when he was a child and doesnt know much about him) FH: atrial fibrillation G8 MOTHER, Onset:60 years & older FH: migraines G8 MOTHER GERD G8 MOTHER, Onset:60 years & older Hypertension G8 MOTHER, Onset:50's - 60 Social History Negative Allergies: Coded Allergies: Sulfa Antibiotics (Verified Allergy, Severe, 05/08/24) Sulfabenzamide (Verified Allergy, Intermediate, 05/08/24) Sulfacetamide (Verified Allergy, Intermediate, 05/08/24) Sulfathiazole (Verified Allergy, Intermediate, 05/08/24) Sacubitril (Unverified Allergy, Unknown, SOB Weakness , 08/21/24) Per pt report Valsartan (Unverified Allergy, Unknown, SOB Weakness , 08/21/24) Per pt report Metoprolol (Verified Adverse Reaction, Severe, 07/12/24) "don't feel very good" per patient Sitagliptin (Verified Adverse Reaction, Severe, 07/12/24) Pt states it made him "feel not very good" Home Meds Active Scripts Methylprednisolone (Medrol Dosepak) 4 Mg Jesús, 4 MG PO UD, #21 TAB UAD Prov:RAY CORCORAN MD 07/14/24 Azithromycin (Azithromycin) 500 Mg Tab, 1 TAB PO DAILY, #7 TAB Prov:RAY CORCORAN MD 07/14/24 Hydroxychloroquine Sulfate (Hydroxychloroquine Sulfat) 200 Mg Tab, 200 MG PO DAILY, #30 TAB 5 Refills Prov:CONNIE COLON MD 07/01/24 Hydrocodone-Acetaminophen (Hydrocodone Bitartrate/AC 5-325 mg) 1 Tab Tab, 1 TAB PO Q6HPRN PRN, #20 TAB Prov:CONNIE COLON MD 07/01/24 Rivaroxaban (XARELTO) 20 Mg Tab, 1 TAB PO QPM, #30 TAB 5 Refills Prov:CONNIE COLON MD 07/01/24 Albuterol Sulfate (VENTOLIN MDI) 90 Mcg Ih, 90 MCG IN QID PRN, #1 INH Prov:RAY CORCORAN MD 06/17/24 Spironolactone (Aldactone) 25 Mg Tab, 1 TAB PO DAILY, #30 TAB 5 Refills Prov:HERBIE LEI MD 05/11/24 Furosemide (Lasix) 40 Mg Tab, 40 MG PO DAILY for 30 Days, #30 TAB 5 Refills Prov:HERBIE LEI MD 05/11/24 Metoprolol Succinate (Metoprolol Succinate Er) 25 Mg Tab, 1 TAB PO DAILY, #30 TAB 1 Refill Prov:ZEENAT PRATT MD 04/20/24 Empagliflozin (Jardiance) 10 Mg Tab, 10 MG PO DAILY for 30 Days, #30 TAB 1 Refill Prov:ZEENAT PRATT MD 04/20/24 Epinephrine (Anaphylaxis) (Auvi-Q) 0.1 Mg/0.1 Ml Inj, 0.1 MG IJ O PRN for 1 Day, #1 INJ Prov:MARCELO TOWNSEND MD 09/09/23 Reported Medications Hydroxychloroquine Sulfate (Hydroxychloroquine Sulfat) 200 Mg Tab, PO for 30 Days, MG 06/14/24 Zolpidem Tartrate (Ambien) 10 Mg Tab, 1 TAB PO QPM 09/20/23 Tamsulosin Hcl (Flomax) 0.4 Mg Cap, 0.4 MG PO DAILY, CAP 09/04/23 Current Medications Current Medications Medications (Trade) Dose Ordered Sig/Louie Route PRN Reason Start Time Stop Time Status Last Admin Empaglifozin (Jardiance) 10 mg DAILY PO 08/21/24 10:00 08/21/24 12:25 DC Review of Systems All systems reviewed otherwise negative other than what is positive in HPI Vital Signs Vital Signs Date Time Temp Pulse Resp B/P (MAP) Pulse Ox O2 Delivery O2 Flow Rate FiO2 08/22/24 05:21 118/67 08/22/24 05:00 97.6 85 16 97 97.6 08/21/24 22:52 Room Air* 0 21 Physical Exam Abdomen soft nontender and pulsatile abdominal abdomen aorta present. Nontender lower extremities palpable femoral and weakly palpable pedal pulses. Labs/Diagnostic Data Labs Test 08/21/24 05:50 08/20/24 10:18 08/20/24 08:10 08/20/24 07:14 Range/Units White Blood Count 8.2 # 4.4-10.8 10^3/uL Red Blood Count 4.01 L 4.5-5.90 10^6/uL Hemoglobin 13.7 13.5-17.5 g/dL Hematocrit 40.6 L 41.0-53.0 % Mean Corpuscular Volume 101.3 H 80.0-100.0 fL Mean Corpuscular Hemoglobin 34.3 H 28.0-32.0 pg Mean Corpuscular Hemoglobin Concent 33.8 32.0-36.0 g/dL Red Cell Distribution Width 14.0 11.8-14.3 % Platelet Count 117 L 140-450 10^3/uL Mean Platelet Volume 8.4 6.9-10.8 fL Neutrophils (%) (Auto) 80.2 H 37.0-80.0 % Lymphocytes (%) (Auto) 11.5 10.0-50.0 % Monocytes (%) (Auto) 7.4 0.0-12.0 % Eosinophils (%) (Auto) 0.5 0.0-7.0 % Basophils (%) (Auto) 0.4 0.0-2.0 % Neutrophils # (Auto) 6.6 1.6-8.6 10 ^3/uL Lymphocytes # (Auto) 0.9 0.4-5.4 10 ^3/uL Monocytes # (Auto) 0.6 0-1.3 10 ^3/uL Eosinophils # (Auto) 0 0-0.8 10 ^3/uL Basophils # (Auto) 0 0-0.2 10 ^3/uL Nucleated Red Blood Cells 0.0 % Sodium Level 137 136-145 mmol/L Potassium Level 4.4 3.5-5.1 mmol/L Chloride Level 102 98-107 mmol/L Carbon Dioxide Level 30 20-31 mmol/L Anion Gap 5 5-15 Blood Urea Nitrogen 19 9-23 mg/dL Creatinine 1.28 0.700-1.30 mg/dL Glomerular Filtration Rate Calc 55 >90 mL/min BUN/Creatinine Ratio 14.8 10.0-20.0 Serum Glucose 82 74-106 mg/dL Calcium Level 9.8 8.7-10.4 mg/dL Magnesium Level 2.3 1.6-2.6 mg/dL Triglycerides Level 64 < 150 mg/dL Cholesterol Level 119 < 200 mg/dL LDL Cholesterol 50 < 100 mg/dL HDL Cholesterol 53 40-59 mg/dL Thyroid Stimulating Hormone (TSH) 3.11 0.55-4.78 uIU/mL Troponin I High Sensitivity 22 </=54 ng/L Urine Color Yellow Yellow Urine Clarity Clear Clear Urine pH 7.0 5.0-9.0 Urine Specific [place] 1.012 1.001-1.035 Urine Protein Negative Negative Urine Ketones Negative Negative Urine Blood Negative Negative /uL Urine Nitrite Negative Negative Urine Bilirubin Negative Negative Urine Urobilinogen Normal Negative mg/dL Urine Leukocyte Esterase Negative Negative /uL Urine RBC 3 0 - 3 /hpf Urine Microscopic WBC < 1 0-3 /HPF Urine Squamous Epithelial Cells None seen <5 /hpf Urine Bacteria None seen None Seen /hpf Urine Glucose Normal Normal mg/dL B-Type Natriuretic Peptide 381.16 0-100 pg/mL Assessment Patient with a known history of 5.5 cm abdominal aortic aneurysm Recommend repeat ultrasound for surveillance purposes. Patient has a high-risk patient with a significantly low EF. At this point in time recommend monitoring based on a risks benefits of surgery. Plan/Recommendation Patient with a known history of 5.5 cm abdominal aortic aneurysm Recommend repeat ultrasound for surveillance purposes. Patient has a high-risk patient with a significantly low EF. At this point in time recommend monitoring based on a risks benefits of surgery. Plan discussed with: Patient EFFIE OLSON Jr., MD Aug 22, 2024 06:40
--- NOTE | 2024-08-22 11:01 | DVH ---
INDICATION: Abdominal aortic aneurysm screening; smoking history TECHNIQUE: Multiple sonographic images of the abdominal aorta were obtained. COMPARISON: None FINDINGS: The aorta measures 2.4 cm. The right iliac artery measures 10 mm in diameter. The left il iac measured 10 mm in diameter. There is no periaortic fluid. Atherosclerotic vascular disease in the abdominal aorta. IMPRESSION: 1. No evidence for abdominal aortic aneurysm.
[2024-08-22] MEDS ORDERED: POLYETHYLENE GLYCOL 17 GM PWDR PO PRN (16:45)
[2024-08-22] MEDS ORDERED: DOCUSATE SOD 100 MG CAP PO PRN (16:45)
[2024-08-22] MEDS: LACTULOSE 20Gm/30ML SOLN PO ONE (17:30)
[2024-08-23] VITALS (12 sets, daily range): BP systolic 106–121; BP diastolic 60–72; PULSE 82–102; RESP 17–22; TEMP 97.3–98.4; O2SAT 93–100
[2024-08-23] MEDS: hydrOXYchloroQUINE SULFATE 200 MG TAB PO ONE (13:31)
[2024-08-23] MEDS ORDERED: METOPROLOL SUCCINATE XL 50 MG TAB PO ONE (13:45)
--- NOTE | 2024-08-23 13:45 | DVHPN2 ---
Progress Note Date Seen: Aug 23, 2024 Medical Necessity Reason Pt with a Central, PICC or Fol: No Subjective Patient reports: No new complaints Review of Systems: HEENT:Normal, CVS:Normal, RESPIRATORY:Normal, GI:Normal, :Normal, MSK:Normal, NEURO:Normal Objective vital signs Vital Sign Date Time Temp Pulse Resp B/P (MAP) Pulse Ox O2 Delivery O2 Flow Rate FiO2 08/23/24 12:34 98.4 95 22 109/61 (77) 95 98.4 08/23/24 08:05 Room Air* 0 21 Total Intake and Output 08/22/24 08/22/24 08/23/24 15:00 23:00 07:00 Intake Total 100 ml 695 ml 600 ml Output Total 150 ml Balance 100 ml 545 ml 600 ml medications Current Medications Medications Dose Ordered Sig/Louie Route Start Time Stop Time Status Last Admin Dose Admin Sodium Chloride 10 ml Q8HR IV 08/20/24 14:00 08/23/24 05:20 10 ML Acetaminophen 650 mg Q6HP PRN PO 08/20/24 12:15 08/23/24 12:16 650 MG Acetaminophen/ Hydrocodone Bitart 1 tab Q4HP PRN PO 08/20/24 12:15 08/23/24 09:38 1 TAB Ondansetron HCl 4 mg Q4HP PRN IV 08/20/24 12:15 Morphine Sulfate 2 mg Q4HPRN PRN IV 08/20/24 12:15 UNV Nitroglycerin 0.4 mg Q5MINP PRN SL 08/20/24 12:15 Morphine Sulfate 2 mg Q30M PRN IV 08/20/24 12:15 UNV Bumetanide 1 mg BIDD IV 08/20/24 18:00 08/23/24 05:21 1 MG Albuterol 2.5 mg Q6HPRN PRN NEB 08/20/24 12:15 08/21/24 22:52 2.5 MG Ipratropium [place] 0.5 mg Q6HPRN PRN NEB 08/20/24 12:15 08/21/24 22:52 0.5 MG Doxycycline Monohydrate 100 mg Q12HR PO 08/20/24 22:00 08/23/24 09:38 100 MG Morphine Sulfate 2 mg Q4HPRN PRN IV 08/20/24 13:00 Morphine Sulfate 2 mg Q30M PRN IV 08/20/24 13:00 Docusate Sodium 100 mg BIDPRN PRN PO 08/22/24 16:45 Polyethylene Glycol 17 gm DAILYPRN PRN PO 08/22/24 16:45 Hydroxychloroquine Sulfate 200 mg DAILY PO 08/24/24 10:00 Tamsulosin HCl 0.4 mg QPM PO 08/23/24 18:00 UNV Empaglifozin 10 mg DAILY PO 08/24/24 10:00 UNV Spironolactone 25 mg DAILY PO 08/24/24 10:00 UNV Rivaroxaban 20 mg QPM PO 08/23/24 18:00 UNV Examination: GENERAL:Normal, HEENT:Normal, NECK:Normal, LUNGS:Normal, CVS:Normal, CVS:Abnormal (irregular), ABDOMEN:Normal, MSK:Normal, SKIN:Normal, NEURO:Normal, :Normal laboratory and microbiology Laboratory Tests 08/21/24 05:50 Test 08/21/24 05:50 Range/Units Serum Glucose 82 74-106 mg/dL Problem List/Assessment/Plan Problem List/Assessment/Plan #1 acute on chronic systolic heart failure: bumex iv #2 ? sepsis/pneumonia: doxy #3 a fib with secondary hypercoagulable state: on xarelto #4 copd #5 RA #6 severe mr/tr #7 bph advance care planning- dnr- time spent 19 mins Plan discussed with: Patient My Orders My Orders Orders - JESSICA VILLARREAL MD Procedure Category Date Status Time Hydroxychloroquine PHA 08/24/24 In Process Tablet (Plaquenil Tab 10:00 Tamsulosin PHA 08/23/24 Logged Hydrochloride (Flomax) 18:00 Empagliflozin PHA 08/24/24 Logged (Jardiance) 10:00 Spironolactone PHA 08/24/24 Logged (Aldactone) 10:00 Rivaroxaban Tablet PHA 08/23/24 Logged (Xarelto Tablet) 18:00 Pt Request For Service PT 08/23/24 Logged 13:37 Basic Metabolic Panel LAB 08/24/24 Verified 06:00 Magnesium LAB 08/24/24 Verified 05:00 Metoprolol Xl PHA 08/23/24 Transmitted Succinate (Toprol Xl) 13:45 Metoprolol Xl PHA 08/24/24 Transmitted Succinate (Toprol Xl) 10:00 Date of Service: Aug 23, 2024 Billing Provider: JESSICA VILLARREAL MD Common Visit Codes: [id number] INP/OBS CARE(HIGH) Secondary Visit Codes: [id number] CARE PLAN 30 MINUTES JESSICA VILLARREAL MD Aug 23, 2024 13:45
[2024-08-23] MEDS: TAMSULOSIN HYDROCHLORIDE 0.4 MG CAP PO SCH (17:36)
[2024-08-23] MEDS: RIVAROXABAN 20 MG TAB PO SCH (17:36)
[2024-08-23] MEDS: AMIODARONE HCL 200 MG TAB PO SCH (23:35)
[2024-08-24] VITALS (9 sets, daily range): BP systolic 104–123; BP diastolic 53–72; PULSE 60–107; RESP 17–20; TEMP 96.1–98.8; O2SAT 95–98
[2024-08-24 05:25] LABS: Potassium 3.5 mmol/L (3.5-5.1); Sodium 137 mmol/L (136-145)
[2024-08-24 05:26] LABS: Anion Gap 9 (5-15); Carbon Dioxide 31 mmol/L (20-31)
[2024-08-24 05:27] LABS: Calcium 9.5 mg/dL (8.7-10.4); Chloride 97 mmol/L (98-107)
[2024-08-24 05:31] LABS: Glucose 92 mg/dL (74-106)
[2024-08-24 05:32] LABS: BUN/Creatinine Ratio 19.4 (10.0-20.0)
[2024-08-24 05:41] LABS: Blood Urea Nitrogen 32 mg/dL (9-23)
--- NOTE | 2024-08-24 07:03 | ECG ---
[facility] Test Date: 2024-08-20 Test Time: 06:50:08 Pat Name: CORONA ZEPEDA Department: ER Room: 0235T A Gender: M Rehabilitation Inspector: ANU : 1940 Requested By: ZULMA PATEL Order Number: [id number] Reading MD: Corona Thomas Measurements Intervals [place] Rate: 91 P: 0 WI: 0 QRS: -50 QRSD: 94 T: 67 QT: 364 QTc: 448 Interpretive Statements Atrial fibrillation Left anterior fascicular block LVH with secondary repolarization abnormality Artifact in lead(s) I,II,aVR Electronically Signed On 08-24-2024 9:33:25 PDT by Corona Thomas Please click the below link to view image of tracing.
[2024-08-24] MEDS: EMPAGLIFLOZIN 10 MG TAB PO SCH (09:38)
[2024-08-24] MEDS: hydrOXYchloroQUINE SULFATE 200 MG TAB PO SCH (09:38)
[2024-08-24] MEDS: SPIRONOLACTONE 25 MG TAB PO SCH (09:38)
[2024-08-24] MEDS ORDERED: METOPROLOL SUCCINATE XL 50 MG TAB PO SCH (10:00)
[2024-08-24] MEDS: SODIUM CHLORIDE 0.9% 250 ML IV ONE (15:45)
--- NOTE | 2024-08-24 15:56 | DVHPN2 ---
Progress Note Date Seen: Aug 24, 2024 Medical Necessity Reason Pt with a Central, PICC or Fol: No Subjective Patient reports: No new complaints Review of Systems: HEENT:Normal, CVS:Normal, RESPIRATORY:Normal, GI:Normal, :Normal, MSK:Normal, NEURO:Normal Objective vital signs Vital Sign Date Time Temp Pulse Resp B/P (MAP) Pulse Ox O2 Delivery O2 Flow Rate FiO2 08/24/24 12:19 97.4 75 17 117/71 (86) 96 97.4 08/24/24 08:00 Room Air* 0 21 Total Intake and Output 08/23/24 08/23/24 08/24/24 15:00 23:00 07:00 Intake Total 360 ml 560 ml 300 ml Output Total 75 ml 450 ml Balance 360 ml 485 ml -150 ml medications Current Medications Medications Dose Ordered Sig/Louie Route Start Time Stop Time Status Last Admin Dose Admin Sodium Chloride 10 ml Q8HR IV 08/20/24 14:00 08/24/24 14:00 10 ML Acetaminophen 650 mg Q6HP PRN PO 08/20/24 12:15 08/23/24 23:33 650 MG Acetaminophen/ Hydrocodone Bitart 1 tab Q4HP PRN PO 08/20/24 12:15 08/24/24 14:43 1 TAB Ondansetron HCl 4 mg Q4HP PRN IV 08/20/24 12:15 Morphine Sulfate 2 mg Q4HPRN PRN IV 08/20/24 12:15 UNV Nitroglycerin 0.4 mg Q5MINP PRN SL 08/20/24 12:15 Morphine Sulfate 2 mg Q30M PRN IV 08/20/24 12:15 UNV Bumetanide 1 mg BIDD IV 08/20/24 18:00 08/23/24 17:36 1 MG Albuterol 2.5 mg Q6HPRN PRN NEB 08/20/24 12:15 08/21/24 22:52 2.5 MG Ipratropium [place] 0.5 mg Q6HPRN PRN NEB 08/20/24 12:15 08/21/24 22:52 0.5 MG Doxycycline Monohydrate 100 mg Q12HR PO 08/20/24 22:00 08/24/24 09:37 100 MG Morphine Sulfate 2 mg Q4HPRN PRN IV 08/20/24 13:00 Morphine Sulfate 2 mg Q30M PRN IV 08/20/24 13:00 Docusate Sodium 100 mg BIDPRN PRN PO 08/22/24 16:45 Polyethylene Glycol 17 gm DAILYPRN PRN PO 08/22/24 16:45 Hydroxychloroquine Sulfate 200 mg DAILY PO 08/24/24 10:00 08/24/24 09:38 200 MG Tamsulosin HCl 0.4 mg QPM PO 08/23/24 18:00 08/23/24 17:36 0.4 MG Empaglifozin 10 mg DAILY PO 08/24/24 10:00 08/24/24 09:38 10 MG Spironolactone 25 mg DAILY PO 08/24/24 10:00 08/24/24 09:38 25 MG Rivaroxaban 20 mg QPM PO 08/23/24 18:00 08/23/24 17:36 20 MG Amiodarone HCl 200 mg Q12HR PO 08/23/24 22:00 08/24/24 09:39 200 MG Examination: GENERAL:Normal, HEENT:Normal, NECK:Normal, LUNGS:Normal, CVS:Normal, ABDOMEN:Normal, MSK:Normal, SKIN:Normal, NEURO:Normal, :Normal laboratory and microbiology Laboratory Tests 08/24/24 04:46 08/21/24 05:50 Test 08/24/24 04:46 Range/Units Serum Glucose 92 74-106 mg/dL Problem List/Assessment/Plan Problem List/Assessment/Plan #1 acute on chronic systolic heart failure: dc bumex iv #2 ? sepsis/pneumonia: doxy #3 a fib with secondary hypercoagulable state: on xarelto #4 copd #5 RA #6 severe mr/tr #7 bph advance care planning- dnr- time spent 19 mins Plan discussed with: Patient My Orders My Orders Orders - JESSICA VILLARREAL MD Procedure Category Date Status Time Amiodarone Tablet PHA 08/23/24 In Process (Cordarone Tablet) 22:00 NS PHA 08/24/24 Verified 15:45 * Junior Estimator CONS 08/24/24 Verified Consult Basic Metabolic Panel LAB 08/25/24 Verified 06:00 Magnesium LAB 08/25/24 Verified 05:00 Chest Portable XY 08/25/24 Verified 06:00 Dietary Evaluation Review Comments: Cardiac diet with Ensure High protein QID Expected Outcomes/Goals: gradual wt gain Date of Service: Aug 24, 2024 Billing Provider: JESSICA VILLARREAL MD Common Visit Codes: [id number] INP/OBS CARE(HIGH) Secondary Visit Codes: [id number] CARE PLAN 30 MINUTES JESSICA VILLARREAL MD Aug 24, 2024 15:56
[2024-08-25] VITALS (10 sets, daily range): BP systolic 105–132; BP diastolic 59–77; PULSE 75–83; RESP 15–19; TEMP 96.8–97.9; O2SAT 93–99
[2024-08-25 06:09] LABS: Anion Gap 6 (5-15); Carbon Dioxide 31 mmol/L (20-31); Chloride 100 mmol/L (98-107); Potassium 4.1 mmol/L (3.5-5.1); Sodium 137 mmol/L (136-145)
[2024-08-25 06:15] LABS: BUN/Creatinine Ratio 25.7 (10.0-20.0); Calcium 10.6 mg/dL (8.7-10.4); Glucose 100 mg/dL (74-106)
[2024-08-25 06:17] LABS: Blood Urea Nitrogen 37 mg/dL (9-23)
--- NOTE | 2024-08-25 10:20 | DVH ---
INDICATION: chf TECHNIQUE: Single frontal view of the chest was obtained COMPARISON: XY CHEST PORTABLE on DOS: 08/20/24, XY CHEST PORTABLE on DOS: 06/14/24, XY CHEST PORTABLE on DOS: 05/10/24, XY CHEST PORTABLE on DOS: 05/08/24, XY CHEST PORTABLE on DOS: 04/17/24, XY CHEST PORTABL E on DOS: 08/20/24 FINDINGS: Lines and Tubes: None Lungs: Multifocal airspace disease. Unchanged chronic fibrotic changes. Pleura: No effusion. No pneumothorax. Cardiomediastinal contours: Unremarkable Bones: Unremarkable IMPRESSION: Multifocal airspace disease.
--- NOTE | 2024-08-25 12:40 | DVHPN2 ---
Subjective Patient states that he has worsening generalized weakness, requesting not to be discharged home today with hospice. Reviewed: Care Plan, H&P, Labs, Medications Changes from previous H/P or p: No Changes General: Per HPI Eyes: No Pain, No Vision change, No Conjunctivae inflammation, No Eyelid inflammation, No Other, No Redness ENT: No Ear pain, No Ear discharge, No Nose pain, No Nose discharge, No Nose congestion, No Mouth pain, No Mouth swelling, No Throat pain, No Throat swelling, No Other Cardiovascular: No Chest Pain, No Palpitations, No Orthopnea, No Paroxysmal Noc. Dyspnea, No Edema, No Lt Headedness, No Other Respiratory: No Cough, No Dry, No Shortness of breath, No SOB with excertion, No Wheezing, No Hemoptysis, No Pleuritic Pain, No Sputum, No Other Gastrointestinal: No Nausea, No Vomiting, No Abdominal Pain, No Diarrhea, No Constipation, No Melena, No Hematochezia, No Other Genitourinary: No Dysuria, No Frequency, No Incontinence, No Hematuria, No Retention, No Other Musculoskeletal: No other, No neck pain, No shoulder pain, No arm pain, No back pain, No hand pain, No leg pain, No foot pain Skin: No Rash, No Lesions, No Jaundice, No Bruising, No Other Objective Vitals Vital Signs Date Time Temp Pulse Resp B/P (MAP) Pulse Ox O2 Delivery O2 Flow Rate FiO2 08/25/24 09:00 96.8 76 15 132/68 (89) 99 96.8 08/25/24 08:00 Room Air* 0 21 Intake/Output Intake and Output 08/25/24 07:00 Intake Total 1450 ml Output Total 454 ml Balance 996 ml Intake Oral 1450 ml Output Urine Total 450 ml Stool Total 4 ml General Appearance: Alert, Oriented X3, Cooperative, moderate distress HEENT: Atraumatic, PERRLA Lungs: Clear to auscultation, Normal air movement Cardiovascular: Normal S1, Normal S2 Musculoskeletal: Normal sensory function, Normal motor function Skin: Dry, Intact Psych/Mental Status: Mental status NL, Mood NL (Anxious) Medications Current Medications Medications Dose Ordered Sig/Louie Route Start Time Stop Time Status Last Admin Dose Admin Sodium Chloride 10 ml Q8HR IV 08/20/24 14:00 08/25/24 05:14 10 ML Acetaminophen 650 mg Q6HP PRN PO 08/20/24 12:15 08/25/24 12:27 650 MG Acetaminophen/ Hydrocodone Bitart 1 tab Q4HP PRN PO 08/20/24 12:15 08/25/24 10:14 1 TAB Ondansetron HCl 4 mg Q4HP PRN IV 08/20/24 12:15 Morphine Sulfate 2 mg Q4HPRN PRN IV 08/20/24 12:15 UNV Nitroglycerin 0.4 mg Q5MINP PRN SL 08/20/24 12:15 Morphine Sulfate 2 mg Q30M PRN IV 08/20/24 12:15 UNV Albuterol 2.5 mg Q6HPRN PRN NEB 08/20/24 12:15 08/21/24 22:52 2.5 MG Ipratropium [place] 0.5 mg Q6HPRN PRN NEB 08/20/24 12:15 08/21/24 22:52 0.5 MG Doxycycline Monohydrate 100 mg Q12HR PO 08/20/24 22:00 08/25/24 10:14 100 MG Morphine Sulfate 2 mg Q4HPRN PRN IV 08/20/24 13:00 Morphine Sulfate 2 mg Q30M PRN IV 08/20/24 13:00 Docusate Sodium 100 mg BIDPRN PRN PO 08/22/24 16:45 Polyethylene Glycol 17 gm DAILYPRN PRN PO 08/22/24 16:45 Hydroxychloroquine Sulfate 200 mg DAILY PO 08/24/24 10:00 08/25/24 10:14 200 MG Tamsulosin HCl 0.4 mg QPM PO 08/23/24 18:00 08/24/24 16:41 0.4 MG Empaglifozin 10 mg DAILY PO 08/24/24 10:00 08/24/24 09:38 10 MG Spironolactone 25 mg DAILY PO 08/24/24 10:00 08/25/24 10:14 25 MG Rivaroxaban 20 mg QPM PO 08/23/24 18:00 08/24/24 16:42 20 MG Amiodarone HCl 200 mg Q12HR PO 08/23/24 22:00 08/25/24 10:14 200 MG Laboratory Results Laboratory Tests 08/21/24 05:50 08/25/24 05:05 Chemistry Test 08/25/24 05:05 Calcium Level 10.6 mg/dL (8.7-10.4) H Magnesium Level 2.0 mg/dL (1.6-2.6) Urinalysis Test 08/20/24 08:10 Urine Color Yellow (Yellow) Urine Clarity Clear (Clear) Urine pH 7.0 (5.0-9.0) Urine Specific [place] 1.012 (1.001-1.035) Urine Protein Negative (Negative) Urine Ketones Negative (Negative) Urine Blood Negative /uL (Negative) Urine Nitrite Negative (Negative) Urine Bilirubin Negative (Negative) Urine Urobilinogen Normal mg/dL (Negative) Urine Leukocyte Esterase Negative /uL (Negative) Urine RBC 3 /hpf (0 - 3) Urine Microscopic WBC < 1 /HPF (0-3) Urine Squamous Epithelial Cells None seen /hpf (<5) Urine Bacteria None seen /hpf (None Seen) Urine Glucose Normal mg/dL (Normal) Labs and/or images reviewed: Labs reviewed by me, Image(s) reviewed by me Assessment/Plan Assessment/Plan Impression: -acute on chronic systolic heart failure -sepsis secondary to community-acquired pneumonia -pulmonary fibrosis -AFib -COPD -severe mitral valve and tricuspid regurgitation -rheumatoid arthritis -BPH Plan: -IV diuresis on hold given increase in BUN and creatinine. Not acute kidney injury -continue antibiotics -bronchodilators -continue goal-directed medical therapy -continue current anticoagulation with Xarelto. Long discussion made with the patient today, who is somewhat depressed, scared, in addition to reporting that he has worsening lethargy today. He is requesting to be discharged home tomorrow with hospice. This will be accommodated. Total time spent with patient discussing and formulating plan of care: 35 minutes. This medical document was created using an electronic medical record system with [employer] dictation system. Although this document has been carefully reviewed, there may still be some phonetic and typographical errors. These areas are purely typographical due to imperfections of the software programs, and do not reflect any compromise in the patient's medical care. Plan discussed with: Patient, Other (RN) Date of Service: Aug 25, 2024 Billing Provider: JANA ORNELAS NP Common Visit Codes: [id number] INP/OBS CARE(HIGH) JANA ORNELAS NP Aug 25, 2024 12:39
[2024-08-26] VITALS (8 sets, daily range): BP systolic 120–140; BP diastolic 51–70; PULSE 71–91; RESP 17–18; TEMP 36.4; O2SAT 96–100
--- NOTE | 2024-08-26 16:09 | DVHDS2 ---
Discharge Summary Date of Admission Aug 20, 2024 at 12:06 Date of Discharge: Aug 26, 2024 Admitting Diagnosis Shortness of breath with acute on chronic systolic heart failure with EF of 10% Labs/Diagnostic Data: Laboratory Results Test 08/25/24 05:05 08/21/24 05:50 08/20/24 10:18 08/20/24 08:10 Sodium Level 137 mmol/L (136-145) Potassium Level 4.1 mmol/L (3.5-5.1) Chloride Level 100 mmol/L (98-107) Carbon Dioxide Level 31 mmol/L (20-31) Anion Gap 6 (5-15) Blood Urea Nitrogen 37 mg/dL (9-23) Creatinine 1.44 mg/dL (0.700-1.30) Glomerular Filtration Rate Calc 47 mL/min (>90) BUN/Creatinine Ratio 25.7 (10.0-20.0) Serum Glucose 100 mg/dL (74-106) Calcium Level 10.6 mg/dL (8.7-10.4) Magnesium Level 2.0 mg/dL (1.6-2.6) White Blood Count 8.2 10^3/uL (4.4-10.8) Red Blood Count 4.01 10^6/uL (4.5-5.90) Hemoglobin 13.7 g/dL (13.5-17.5) Hematocrit 40.6 % (41.0-53.0) Mean Corpuscular Volume 101.3 fL (80.0-100.0) Mean Corpuscular Hemoglobin 34.3 pg (28.0-32.0) Mean Corpuscular Hemoglobin Concent 33.8 g/dL (32.0-36.0) Red Cell Distribution Width 14.0 % (11.8-14.3) Platelet Count 117 10^3/uL (140-450) Mean Platelet Volume 8.4 fL (6.9-10.8) Neutrophils (%) (Auto) 80.2 % (37.0-80.0) Lymphocytes (%) (Auto) 11.5 % (10.0-50.0) Monocytes (%) (Auto) 7.4 % (0.0-12.0) Eosinophils (%) (Auto) 0.5 % (0.0-7.0) Basophils (%) (Auto) 0.4 % (0.0-2.0) Neutrophils # (Auto) 6.6 10 ^3/uL (1.6-8.6) Lymphocytes # (Auto) 0.9 10 ^3/uL (0.4-5.4) Monocytes # (Auto) 0.6 10 ^3/uL (0-1.3) Eosinophils # (Auto) 0 10 ^3/uL (0-0.8) Basophils # (Auto) 0 10 ^3/uL (0-0.2) Nucleated Red Blood Cells 0.0 % Triglycerides Level 64 mg/dL (< 150) Cholesterol Level 119 mg/dL (< 200) LDL Cholesterol 50 mg/dL (< 100) HDL Cholesterol 53 mg/dL (40-59) Thyroid Stimulating Hormone (TSH) 3.11 uIU/mL (0.55-4.78) Troponin I High Sensitivity 22 ng/L (</=54) Urine Color Yellow (Yellow) Urine Clarity Clear (Clear) Urine pH 7.0 (5.0-9.0) Urine Specific [place] 1.012 (1.001-1.035) Urine Protein Negative (Negative) Urine Ketones Negative (Negative) Urine Blood Negative /uL (Negative) Urine Nitrite Negative (Negative) Urine Bilirubin Negative (Negative) Urine Urobilinogen Normal mg/dL (Negative) Urine Leukocyte Esterase Negative /uL (Negative) Urine RBC 3 /hpf (0 - 3) Urine Microscopic WBC < 1 /HPF (0-3) Urine Squamous Epithelial Cells None seen /hpf (<5) Urine Bacteria None seen /hpf (None Seen) Urine Glucose Normal mg/dL (Normal) Test 08/20/24 07:14 B-Type Natriuretic Peptide 381.16 pg/mL (0-100) Other Laboratory Tests 08/25/24 05:05 08/21/24 05:50 Brief Hx & Hospital Course: Patient admitted to the hospital with acute systolic heart failure. He was treated with diuretics. He was given amiodarone and Xarelto. He was given antibiotic and nebulizers as well. Patient decided to go on hospice. Patient is being discharged home on hospice today Condition at Discharge: Guarded Final Diagnosis/Problems List chf Discharge Disposition: Hospice - Home Discharge Instruct/Medications Diet: Cardiac 2g Na,low cholest Activity: No Restrictions, As Tolerated Follow Up/Referral: fu with hospice Medications: per hospice 35 Discharge Statement: "Patient was advised to return to the ER or call 911 if any headaches, dizziness, shortness of breath, chest pain, abdominal pain, bleeding, fevers, or worsening of medical condition. Patient was counseled about treatment plan, medications, possible side effects, patientverbalized understanding. All questions were answered to the best of my ability. This discharge took greater then 30 minutes in planning, reviewing documentation, counseling the patient, and discussing with other team members." ASSESSMENT ASSESSMENT Assessment chf Date of Service: Aug 26, 2024 Billing Provider: MARTINE SUAREZ MD Common Visit Codes: [id number] DISCH DAY >30min MARTINE SUAREZ MD Aug 26, 2024 16:09
== END 2024-08-26 16:00 | disposition hospice, home (50) | DRG 871 ==
LOC: ER 06:39 → OVERFLOW 12:06 → TELE-EAST 18:02
PROVIDERS: ADMIT Nurse Practitioner Acute Care; ATTEND Nurse Practitioner Acute Care
DX: A41.9 Sepsis, unspecified organism (principal); I50.23 Acute on chronic systolic (congestive) heart failure; J18.9 Pneumonia, unspecified organism; R64 Cachexia; I48.11 Longstanding persistent atrial fibrillation; I11.0 Hypertensive heart disease with heart failure; R54 Age-related physical debility; Z66 Do not resuscitate; Z51.5 Encounter for palliative care; J44.9 Chronic obstructive pulmonary disease, unspecified; I71.21 Aneurysm of the ascending aorta, without rupture; I08.3 Combined rheumatic disorders of mitral, aortic and tricuspid valves; F41.9 Anxiety disorder, unspecified; N40.0 Benign prostatic hyperplasia without lower urinary tract symptoms; M06.9 Rheumatoid arthritis, unspecified; I08.1 Rheumatic disorders of both mitral and tricuspid valves; J84.10 Pulmonary fibrosis, unspecified; Z88.2 Allergy status to sulfonamides; Z79.84 Long term (current) use of oral hypoglycemic drugs; Z79.899 Other long term (current) drug therapy; Z86.711 Personal history of pulmonary embolism; Z82.49 Family history of ischemic heart disease and other diseases of the circulatory system; Z87.891 Personal history of nicotine dependence; Z79.01 Long term (current) use of anticoagulants; Z91.199 Patient's noncompliance with other medical treatment and regimen due to unspecified reason
CPT/HCPCS: 36415; 71045; 80048; 80061; 81001; 83735; 83880; 84443; 84484; 85025; 87081; 93005; 94640; 96365; 96375; 97163; 99291; 99292; G0378; J2543

== ENCOUNTER 2024-09-11 04:50 | Inpatient (IN) | payer OTHER, MEDICARE ==
[~2024-09-11] VITALS: Ht 172.7 cm; Wt 51.1 kg
[2024-09-11] VITALS (7 sets, daily range): BP systolic 123–126; BP diastolic 62–78; PULSE 78–95; RESP 17–20; TEMP 98.4–98.5; O2SAT 96–100
--- NOTE | 2024-09-11 05:19 | ECG ---
[facility] Test Date: 2024-09-11 Test Time: 04:58:02 Pat Name: CORONA ZEPEDA Department: ED Room: 0205 Gender: M Fisher Clam: RICHMOND : 1940 Requested By: EMERGENCY EMERGENCY Order Number: [id number] Reading MD: Corona Thomas Measurements Intervals [place] Rate: 75 P: 247 SC: 148 QRS: -37 QRSD: 105 T: 54 QT: 409 QTc: 457 Interpretive Statements Sinus or ectopic atrial rhythm Atrial premature complex LVH with secondary repolarization abnormality Artifact in lead(s) I,II,aVR,aVL,V1,V2,V3,V4,V5,V6 Electronically Signed On 09-12-2024 22:51:57 PDT by Corona Thomas Please click the below link to view image of tracing.
--- NOTE | 2024-09-11 06:29 | ED.PDOC ---
History of Present Illness HPI Comments 84 year old male presents to the ED via EMS with a chief complaint of generalized weakness onset 3 days. Patient states he has been experiencing generalized weakness for the past 3 days. He fell 2 days ago, states he was in the restroom, began experiencing dizziness, felt his legs give out. PMHx arthritis, COPD, CHF, a-fib. Denies LOC, chest pain, shortness of breath, headache, nausea, vomiting, diarrhea,fevers. No other symptoms or modifying factors present at this time. Chief Complaint: General Weakness Time Seen by MD: 06:10 Primary Care Provider: DC Reviewed Notes: Medications, Allergies Allergies: Coded Allergies: Sulfa Antibiotics (Verified Allergy, Severe, 05/08/24) Sulfabenzamide (Verified Allergy, Intermediate, 05/08/24) Sulfacetamide (Verified Allergy, Intermediate, 05/08/24) Sulfathiazole (Verified Allergy, Intermediate, 05/08/24) Sacubitril (Unverified Allergy, Unknown, SOB Weakness , 08/21/24) Per pt report Valsartan (Unverified Allergy, Unknown, SOB Weakness , 08/21/24) Per pt report Metoprolol (Verified Adverse Reaction, Severe, 07/12/24) "don't feel very good" per patient Sitagliptin (Verified Adverse Reaction, Severe, 07/12/24) Pt states it made him "feel not very good" Home Meds Active Scripts Methylprednisolone (Medrol Dosepak) 4 Mg Jesús, 4 MG PO UD, #21 TAB UAD Prov:RAY CORCORAN MD 07/14/24 Azithromycin (Azithromycin) 500 Mg Tab, 1 TAB PO DAILY, #7 TAB Prov:RAY CORCORAN MD 07/14/24 Hydroxychloroquine Sulfate (Hydroxychloroquine Sulfat) 200 Mg Tab, 200 MG PO DAILY, #30 TAB 5 Refills Prov:CONNIE COLON MD 07/01/24 Hydrocodone-Acetaminophen (Hydrocodone Bitartrate/AC 5-325 mg) 1 Tab Tab, 1 TAB PO Q6HPRN PRN, #20 TAB Prov:CONNIE COLON MD 07/01/24 Rivaroxaban (XARELTO) 20 Mg Tab, 1 TAB PO QPM, #30 TAB 5 Refills Prov:CONNIE COLON MD 07/01/24 Albuterol Sulfate (VENTOLIN MDI) 90 Mcg Ih, 90 MCG IN QID PRN, #1 INH Prov:RAY CORCORAN MD 06/17/24 Spironolactone (Aldactone) 25 Mg Tab, 1 TAB PO DAILY, #30 TAB 5 Refills Prov:HERBIE LEI MD 05/11/24 Furosemide (Lasix) 40 Mg Tab, 40 MG PO DAILY for 30 Days, #30 TAB 5 Refills Prov:HERBIE LEI MD 05/11/24 Metoprolol Succinate (Metoprolol Succinate Er) 25 Mg Tab, 1 TAB PO DAILY, #30 TAB 1 Refill Prov:ZEENAT PRATT MD 04/20/24 Empagliflozin (Jardiance) 10 Mg Tab, 10 MG PO DAILY for 30 Days, #30 TAB 1 Refill Prov:ZEENAT PRATT MD 04/20/24 Epinephrine (Anaphylaxis) (Auvi-Q) 0.1 Mg/0.1 Ml Inj, 0.1 MG IJ O PRN for 1 Day, #1 INJ Prov:MARCELO TOWNSEND MD 09/09/23 Reported Medications Hydroxychloroquine Sulfate (Hydroxychloroquine Sulfat) 200 Mg Tab, PO for 30 Days, MG 06/14/24 Zolpidem Tartrate (Ambien) 10 Mg Tab, 1 TAB PO QPM 09/20/23 Tamsulosin Hcl (Flomax) 0.4 Mg Cap, 0.4 MG PO DAILY, CAP 09/04/23 Information Source: Patient, Emergency Med Personnel Mode of Arrival: EMS Severity: Moderate Timing: Days Duration: Since onset Prehospital treatment: None Past Medical History PAST MEDICAL HISTORY: AFIB, Arthritis, CHF, COPD Surgical History: Hernia Repair, Tonsillectomy Family History Family History: Unknown Social History Smoker: Non-Smoker Alcohol: Denies ETOH Use Drugs: Denies Drug Use Lives In: Home Constitutional: reports: weakness; denies: chills, diaphoresis, fatigue, fever, malaise, sweats, others EENTM: denies: blurred vision, double vision, ear bleeding, ear discharge, ear drainage, ear pain, ear ringing, eye pain, eye redness, hearing loss, mouth pain, mouth swelling, nasal discharge, nose bleeding, nose congestion, nose pain, photophobia, tearing, throat pain, throat swelling, voice changes, others Respiratory: denies: cough, hemoptysis, orthopnea, SOB at rest, shortness of breath, SOB with excertion, stridor, wheezing, others Cardiovascular: denies: chest pain, dizzy spells, diaphoresis, Dyspnea on exertion, edema, irregular heart beat, left arm pain, lightheadedness, palpitations, PND, syncope, others Gastrointestinal: denies: abdomen distended, abdominal pain, blood streaked bowels, constipated, diarrhea, dysphagia, difficulty swallowing, hematemesis, m petar, nausea, poor appetite, poor fluid intake, rectal bleeding, rectal pain, vomiting, others Genitourinary: denies: burning, dysuria, flank pain, frequency, hematuria, incontinence, penile discharge, penile sore, pain, testicle pain, testicle swelling, urgency, others Neurological: reports: dizziness, weakness; denies: fainting, headache, left sided numbness, left sided weakness, numbness, paresthesia, pre-existing defi cit, right sided numbness, right sided weakness, seizure, speech problems, tingling, tremors, others Musculoskeletal: denies: back pain, gout, joint pain, joint swelling, muscle pain, muscle stiffness, neck pain, others Integumetry: denies: bruises, change in color, change in hair/nails, dryness, laceration, lesions, lumps, rash, wounds, others Allergic/Immunocompromised: denies: Difficulty Healing, Frequent Infections, Hives, Itching, others Hematologic/Lymphatic: denies: anemia, blood clots, easy bleeding, easy bruising, swollen glands, others Endocrine: denies: excessive hunger, excessive sweating, excessive thirst, excessive urination, flushing, intolerance to cold, intolerance to heat, unexplained weight gain, unexplained weight loss, others Psychiatric: denies: anxiety, bipolar disorder, depression, hopeless, panic disorder, schizophrenia, sleepless, suicidal, others All Other Systems: Reviewed and Negative Physical Exam General Appearance: Moderate Distress, Thin HEENT: Normal ENT Inspection, Pharynx Normal, TMs Normal Neck: Full Range of Motion, Non-Tender, Normal, Normal Inspection Respiratory: Chest Non-Tender, No Accessory Muscle Use, No Respiratory Distress, Other (Coarse breath sounds) Cardiovascular: Irregular, No Edema, No JVD, No Murmur, No Gallop, Normal Peripheral Pulses Breast Exam: Deferred Gastrointestinal: No Organomegaly, Non Tender, No Pulsatile Mass, Normal Bowel Sounds, Soft Genitalia: Deferred Pelvic: Deferred Rectal: Deferred Extremities: No calf tenderness, Normal capillary refill, Normal inspection, Normal range of motion, Non-tender, No pedal edema Musculoskeletal : Apperance: Normal Neurologic: Alert, Normal Mood Cerebellar Function: NOT DONE Reflexes: NOT DONE Skin: Dry, Normal Color, Warm, Wounds (Left forearm old injury skin tear) Peripheral Pulses: 3+ Radial (R), 3+ Radial (L) Lymphatic: No Adenopathy Was a procedure done? Was a procedure done?: No EKG EKG : Cardiac Rhythm: Afib Differential Dx Considerations may include: Pneumonitis Electrolyte imbalance X-Ray, Labs, Meds, VS Vital Signs Date Time Temp Pulse Resp B/P (MAP) Pulse Ox O2 Delivery O2 Flow Rate FiO2 09/11/24 08:15 83 20 98 Room Air* 0 21 09/11/24 08:09 85 16 133/28 09/11/24 07:30 98.4 83 20 133/73 (93) 99 98.4 09/11/24 05:27 78 18 96 Room Air* 0 21 09/11/24 05:27 98.1 78 18 130/87 (101) 96 98.1 09/11/24 04:58 75 09/11/24 04:57 97.6 81 18 122/64 (83) 97 97.6 Lab Test 09/11/24 07:53 09/11/24 07:12 09/11/24 06:49 Range/Units Troponin I High Sensitivity 19 16 </=54 ng/L Urine Color Yellow Yellow Urine Clarity Ex.turbid Clear Urine pH 8.0 5.0-9.0 Urine Specific [place] 1.019 1.001-1.035 Urine Protein Trace H Negative Urine Ketones Negative Negative Urine Blood Negative Negative /uL Urine Nitrite Negative Negative Urine Bilirubin Negative Negative Urine Urobilinogen Normal Negative mg/dL Urine Leukocyte Esterase Negative Negative /uL Urine RBC 4 0 - 3 /hpf Urine Microscopic WBC 0-3 /HPF Urine Squamous Epithelial Cells None seen <5 /hpf Urine Amorphous Crystals Few None Seen /hpf Urine Bacteria None seen None Seen /hpf Urine Glucose Normal Normal mg/dL White Blood Count 12.4 H 4.4-10.8 10^3/uL Red Blood Count 2.88 L 4.5-5.90 10^6/uL Hemoglobin 10.0 L 13.5-17.5 g/dL Hematocrit 30.2 L 41.0-53.0 % Mean Corpuscular Volume 104.6 H 80.0-100.0 fL Mean Corpuscular Hemoglobin 34.7 H 28.0-32.0 pg Mean Corpuscular Hemoglobin Concent 33.2 32.0-36.0 g/dL Red Cell Distribution Width 15.0 H 11.8-14.3 % Platelet Count 151 140-450 10^3/uL Mean Platelet Volume 8.0 6.9-10.8 fL Neutrophils (%) (Auto) 88.1 H 37.0-80.0 % Lymphocytes (%) (Auto) 4.2 L 10.0-50.0 % Monocytes (%) (Auto) 6.4 0.0-12.0 % Eosinophils (%) (Auto) 0.9 0.0-7.0 % Basophils (%) (Auto) 0.4 0.0-2.0 % Neutrophils # (Auto) 10.9 H 1.6-8.6 10 ^3/uL Lymphocytes # (Auto) 0.5 0.4-5.4 10 ^3/uL Monocytes # (Auto) 0.8 0-1.3 10 ^3/uL Eosinophils # (Auto) 0.1 0-0.8 10 ^3/uL Basophils # (Auto) 0.1 0-0.2 10 ^3/uL Nucleated Red Blood Cells 0.0 % Sodium Level 139 136-145 mmol/L Potassium Level 4.6 3.5-5.1 mmol/L Chloride Level 104 98-107 mmol/L Carbon Dioxide Level 26 20-31 mmol/L Anion Gap 9 5-15 Blood Urea Nitrogen 31 H 9-23 mg/dL Creatinine 1.43 H 0.700-1.30 mg/dL Glomerular Filtration Rate Calc 48 >90 mL/min BUN/Creatinine Ratio 21.7 H 10.0-20.0 Serum Glucose 97 74-106 mg/dL Lactic Acid Level 2.0 0.4-2.0 mmol/L Calcium Level 9.9 8.7-10.4 mg/dL Current Medications Medications (Trade) Dose Ordered Sig/Louie Route Start Time Stop Time Status Last Admin Sodium Chloride 1,000 ml @ 1,000 mls/hr Q1H ONCE IV 09/11/24 06:30 09/11/24 07:29 DC 09/11/24 06:53 Sodium Chloride 1,000 ml @ 150 mls/hr Q6H40M ONCE IV 09/11/24 06:30 09/11/24 13:09 09/11/24 06:57 Azithromycin 250 ml @ 125 mls/hr ONCE ONCE IV 09/11/24 06:30 09/11/24 08:29 DC 09/11/24 07:45 Morphine Sulfate 2 mg ONCE ONCE IV 09/11/24 07:45 09/11/24 07:46 DC 09/11/24 08:09 Ondansetron HCl (Zofran) 4 mg ONCE ONCE IV 09/11/24 07:45 09/11/24 07:46 DC 09/11/24 08:08 Patient alert. Feeling weak. Possible sepsis. Vitals stable. Possible pneumonitis. Establish intravenous access. Was given fluids. Was given Rocephin. Was given azithromycin. clinical review nurse does show irregular heartbeat. He is on blood thinner. Has been falling frequently. Has wound in the left forearm. Explained to the patient that he will be admitted for further workup possible MRI. Continue monitoring. CT of the head for frequent falls. [place] [id number] Ph: [phone] DIAGNOSTIC IMAGING Diagnostic Imaging Report : [id number] Signed PATIENT: OCRONA ZEPEDA ACCT: [id number] UNIT: [id number] : 1940 LOC: ER ROOM / BED: / AGE / SEX: 84 / M ADM STATUS: REG ER SERVICE 3 ORDERING PHYSICIAN: ZULMA PATEL MD PROCEDURE(s): CXRP - CHEST PORTABLE REASON: sob ORDER NUMBER(s): [id number], ACCESSION NUMBER(s): [id number] CHEST RADIOGRAPH Indication: sob Technique: Single frontal view of the chest was obtained COMPARISON: XY CHEST PORTABLE on DOS: 08/25/24, XY CHEST PORTABLE on DOS: 08/20/24, XY CHEST PORTABLE on DOS: 06/14/24, XY CHEST PORTABLE on DOS: 05/10/24, XY CHEST PORTABLE on DOS: 05/08/24 FINDINGS: Lines and Tubes: None Lungs: COPD. Possible superimposed viral pneumonia. Pleura: No effusion. No pneumothorax. Cardiomediastinal contours: Cardiomegaly Bones: Unremarkable IMPRESSION: COPD with possible superimposed viral pneumonia. ATED BY: JEFFERY NOVA MD DICTATED DATE/TIME: 09/11/24752 SIGNED BY: JEFFERY NOVA MD SIGNED DATE/TIME: 09/11/24752 CC: [place] [phone] Ph: [phone] DIAGNOSTIC IMAGING Diagnostic Imaging Report : [id number] Signed PATIENT: CORONA ZEPEDA ACCT: [id number] UNIT: [id number] : 1940 LOC: ER ROOM / BED: / AGE / SEX: 84 / M ADM STATUS: REG ER SERVICE 2 ORDERING PHYSICIAN: ZULMA PATEL MD PROCEDURE(s): HWOCT - HEAD WITHOUT CONTRAST REASON: headinjury ORDER NUMBER(s): [id number], ACCESSION NUMBER(s): [id number] EXAM: CT HEAD WITHOUT CONTRAST INDICATION: headinjury TECHNIQUE: CT of the head without intravenous contrast. Radiation Dose : 1. Head: CT Dose: CTDI volume is 41 mGy. Dose-length product is 856 mGy*cm The dose indicators for CT are the volume Computed Tomography (CT) Dose Index (CTDIvol) and the Dose Length Product (DLP), and are measured in units of mGy and mGy-cm, respectively. These indicators are not patient dose, but values generated from the CT scanner acquisition factors. The report includes radiation exposure data for exposures received during this examination. COMPARISON: HEAD WITHOUT CONTRAST on DOS: 04/14/21 FINDINGS: There is no evidence of acute intracranial hemorrhage, extra-axial collection, mass effect, midline shift, herniation or hydrocephalus. The ventricles, sulci and cisterns are age appropriate. The conley-white differentiation is intact. Patchy periventricular and subcortical white matter hypoattenuation is nonspecific but may be related to small vessel ischemic disease. The visualized paranasal sinuses and mastoid air cells are clear. The surrounding soft tissues and osseous structures are unremarkable. IMPRESSION: No acute intracranial abnormality. Radiation optimization: All CT scans at this facility use at least one of these dose optimization techniques: automated exposure control mA and/or kV adjustment per patient size (includes targeted exams where dose is matched to clinical indication) or iterative reconstruction. ATED BY: JEFFERY NOVA MD DICTATED DATE/TIME: 09/11/24818 SIGNED BY: JEFFERY NOVA MD SIGNED DATE/TIME: 09/11/24818 CC: Time of 1ST Reevaluation: 06:40 Reevaluation 1ST: Unchanged Patient Education/Counseling: Diagnosis, Treatment, Prognosis Family Education/Counseling: No Family Present SEPSIS Sepsis Screen Date sepsis recognized/suspect: Sep 11, 2024 Time Sepsis recognized/suspect: 529 Recent Procedure: No On Antibiotic Therapy: No Respiratory Rate >20: No Heart Rate >90: No Temp<36 C (96.8 F) or >38.3 C: No SBP <90 or MAP <65 mmHG: No New Acute Mental Status Change: No Is the patient on CPAP, BIPAP,: No Physician Orders Blood Culture (09/11/24 06:24) Chest Portable (09/11/24 06:24) Sodium Chloride 0.9% (09/11/24 06:30) Troponin-I Hs (09/11/24 09:24) Head Without Contrast (09/11/24 06:33) Vital Signs Date Time Temp Pulse Resp B/P (MAP) Pulse Ox O2 Delivery O2 Flow Rate FiO2 09/11/24 08:15 83 20 98 Room Air* 0 21 09/11/24 08:09 85 16 133/28 09/11/24 07:30 98.4 83 20 133/73 (93) 99 98.4 09/11/24 05:27 78 18 96 Room Air* 0 21 09/11/24 05:27 98.1 78 18 130/87 (101) 96 98.1 09/11/24 04:58 75 09/11/24 04:57 97.6 81 18 122/64 (83) 97 97.6 Laboratory Tests Test 09/11/24 06:49 Lactic Acid Level 2.0 mmol/L (0.4-2.0) White Blood Count 12.4 10^3/uL (4.4-10.8) H Medications Medications Dose Ordered Sig/Louie Route Start Time Stop Time Status Last Admin Dose Admin Azithromycin 250 ml @ 125 mls/hr ONCE ONCE IV 09/11/24 06:30 09/11/24 08:29 DC 09/11/24 07:45 Morphine Sulfate 2 mg ONCE ONCE IV 09/11/24 07:45 09/11/24 07:46 DC 09/11/24 08:09 Ondansetron HCl 4 mg ONCE ONCE IV 09/11/24 07:45 09/11/24 07:46 DC 09/11/24 08:08 Sodium Chloride 1,000 ml @ 150 mls/hr Q6H40M ONCE IV 09/11/24 06:30 09/11/24 13:09 09/11/24 06:57 Sodium Chloride 1,000 ml @ 1,000 mls/hr Q1H ONCE IV 09/11/24 06:30 09/11/24 07:29 DC 09/11/24 06:53 Departure 1 Departure Time of Disposition: 06:32 Impression: Primary Impression: Atrial fib/flutter, transient Additional Impression: Pneumonitis Disposition: ADMITTED INPATIENT Admit to: Med Surg Condition: Guarded Critical Care Note Critical Care Time?: Yes (45 min-critical care time only) Critical care comment: Possible sepsis establish intravenous access fluids watch for CHF Stability Stability form required: No Heart Score Heart Score: Heart Score Response (Comments) Value History Slightly Suspicious 0 EKG Normal 0 Age >65 2 Risk Factors >3 or Hx ASHD 2 Troponin Normal limit 0 Total 4 I personally scribed for ZULMA PATEL MD ([email or web address]) on 09/11/24 at 06:29. Electronically submitted by Mai Askew ([email or web address]). I personally scribed for ZULMA PATEL MD ([email or web address]) on 09/11/24 at 08:36. Electronically submitted by Mai Askew ([email or web address]). ZULMA PATEL MD Sep 11, 2024 06:29
[2024-09-11] MEDS: SODIUM CHLORIDE 0.9% 1,000 ML IV ONE ×2 (06:53→06:57)
[2024-09-11 07:10] LABS: Basophils # (auto) 0.1 10 ^3/uL (0-0.2); Basophils % (auto) 0.4 % (0.0-2.0); Eosinophils # (auto) 0.1 10 ^3/uL (0-0.8); Eosinophils % (auto) 0.9 % (0.0-7.0); Hematocrit 30.2 % (41.0-53.0); Lymphocytes # (auto) 0.5 10 ^3/uL (0.4-5.4); Lymphocytes % (auto) 4.2 % (10.0-50.0); Mean Corpuscular Hemoglobin 34.7 pg (28.0-32.0); Mean Corpuscular Hgb Conc. 33.2 g/dL (32.0-36.0); Mean Corpuscular Volume 104.6 fL (80.0-100.0); Monocytes # (auto) 0.8 10 ^3/uL (0-1.3); Monocytes % (auto) 6.4 % (0.0-12.0); Neutrophils # (auto) 10.9 10 ^3/uL (1.6-8.6); Neutrophils % (auto) 88.1 % (37.0-80.0); Platelet Count (auto) 151 10^3/uL (140-450); Red Blood Cells 2.88 10^6/uL (4.5-5.90); White Blood Cell 12.4 10^3/uL (4.4-10.8)
[2024-09-11 07:12] LABS: Urine Bacteria None Seen /hpf (None Seen)
[2024-09-11 07:14] LABS: Chloride 104 mmol/L (98-107); Potassium 4.6 mmol/L (3.5-5.1); Sodium 139 mmol/L (136-145)
[2024-09-11 07:15] LABS: Anion Gap 9 (5-15); Calcium 9.9 mg/dL (8.7-10.4); Carbon Dioxide 26 mmol/L (20-31)
[2024-09-11 07:20] LABS: BUN/Creatinine Ratio 21.7 (10.0-20.0); Blood Urea Nitrogen 31 mg/dL (9-23); Glucose 97 mg/dL (74-106)
[2024-09-11 07:20] LABS: Urine Amorphous Crystal FEW /hpf (None Seen); Urine Blood Negative /uL (Negative); Urine Clarity Ex.Turbid (Clear); Urine Color Yellow (Yellow); Urine Protein, UAD TRACE (Negative); Urine Specific Gravity 1.019 (1.001-1.035); Urine Squamous Epithelial Cell None Seen /hpf (<5); Urine Urobilinogen Normal (Negative)
[2024-09-11] MEDS: AZITHROMYCIN 500MG/ 250ML 250 ML IV ONE (07:45)
--- NOTE | 2024-09-11 07:55 | DVH ---
CHEST RADIOGRAPH Indication: sob Technique: Single frontal view of the chest was obtained COMPARISON: XY CHEST PORTABLE on DOS: 08/25/24, XY CHEST PORTABLE on DOS: 08/20/24, XY CHEST PORTABLE on DOS: 06/14/24, XY CHEST PORTABLE on DOS: 05/10/24, XY CHEST PORTABLE on DOS: 05/08/24 FINDINGS: Lines and Tubes: None Lungs: COPD. Possible superimposed viral pneumonia. Pleura: No effusion. No pneumothorax. Cardiomediastinal contours: Cardiomegaly Bones: Unremarkable IMPRESSION: COPD with possible superimposed viral pneumonia.
[2024-09-11] MEDS: ONDANSETRON HCL 4 MG/2 ML VIAL IV ONE (08:08)
[2024-09-11] MEDS: MORPHINE SULFATE INJ 2 MG/ml SYRG IV ONE (08:09)
--- NOTE | 2024-09-11 08:21 | DVH ---
EXAM: CT HEAD WITHOUT CONTRAST INDICATION: headinjury TECHNIQUE: CT of the head without intravenous contrast. Radiation Dose : 1. Head: CT Dose: CTDI volume is 41 mGy. Dose-length product is 856 mGy*cm The dose indicators for CT are the volume Computed Tomography (CT) Dose Index (CTDIvol) and the Dose Length Product (DLP), and are measured in units of mGy and mGy-cm, respectively. These indicators are not patient dose, but values generated from the CT scanner acquisition factors. The report includes radiation exposure data for exposures received during this examination. COMPARISON: HEAD WITHOUT CONTRAST on DOS: 04/14/21 FINDINGS: There is no evidence of acute intracranial hemorrhage, extra-axial collection, mass effect, midline s hift, herniation or hydrocephalus. The ventricles, sulci and cisterns are age appropriate. The conley-white differentiation is intact. Patchy periventricular and subcortical white matter hypoattenuation is nonspecific but may be related to small vessel ischemic disease. The visualized paranasal sinuses and mastoid air cells are clear. The surrounding soft tissues and osseous structures are unremarkable. IMPRESSION: No acute intracranial abnormality. Radiation optimization: All CT scans at this facility use at least one of these dose optimization nany hniques: automated exposure control mA and/or kV adjustment per patient size (includes targeted exam s where dose is matched to clinical indication) or iterative reconstruction.
[2024-09-11] MEDS: cefTRIAXone 1GM/50ML D5W 50 ML IV ONE (10:07)
[2024-09-11] MEDS: MORPHINE SULFATE 4 MG/ML SYR/VIAL IV ONE ×2 (11:33→17:35)
[2024-09-11] MEDS ORDERED: ONDANSETRON HCL 4 MG/2 ML VIAL IV PRN (11:45)
--- NOTE | 2024-09-11 12:44 | DVHHP2 ---
History of Present Illness Reason for Visit: Generalized weakness History of Present Illness Yandel Pedro is an 84-year-old male with past medial history of systolic heart failure HFr, EF 10-15%, PE, BPH, COPD, hypertension, aortic aneurysm (5 cm), and rheumatoid arthritis who came to the hospital for generalized weakness. P samson states "he feels like he has no energy and that he is just sleep walking". Patient states he has a bad heart and whenever he goes to the doctor or hospital they tell him he feels bad due to his heart failure. He has been experiencing frequent falls due to his weakness, and has multiple skin tears and abrasions to bilateral upper extremities. He states he does live alone. Cardiovascular: AFIB, CHF, HTN, hyperipidemia Pulmonary: COPD Rheumatologic: Rheumatoid arthritis Past Surgical History: Other (gastric ulcer, hemorrhoidectomies, ), Tonsi llectomy Smoke: No ALCOHOL: none Drugs: None Lives: Alone Domestic Violence: Neg Review of Systems Constitutional: Yes: Weakness, Malaise; No: Fever, Chills, Sweats, Other Eyes: No: Pain, Vision change, Conjunctivae inflammation, Eyelid inflammation, Other, Redness ENT: No: Ear pain, Ear discharge, Nose pain, Nose discharge, Nose congestion, Mouth pain, Mouth swelling, Throat pain, Throat swelling, Other Respiratory: No: Cough, Dry, Shortness of breath, SOB with excertion, Wheezing, Hemoptysis, Pleuritic Pain, Sputum, Wheezing, Other Cardiovascular: No: Chest Pain, Palpitations, Orthopnea, Paroxysmal Noc. Dyspnea, Edema, Lt Headedness, Other Gastrointestinal: No: Nausea, Vomiting, Abdominal Pain, Diarrhea, Constipation, Melena, Hematochezia, Other Genitourinary: No Dysuria, No Frequency, No Incontinence, No Hematuria, No Retention, No Other Musculoskeletal: No: other, neck pain, shoulder pain, arm pain, back pain, hand pain, leg pain, foot pain Skin: No: Rash, Lesions, Jaundice, Bruising, Other Neurological: Weakness, Incoordination; No: Numbness, Change in speech, Confusion, Seizures, Other Allergies: Coded Allergies: Sulfa Antibiotics (Verified Allergy, Severe, 05/08/24) Sulfabenzamide (Verified Allergy, Intermediate, 05/08/24) Sulfacetamide (Verified Allergy, Intermediate, 05/08/24) Sulfathiazole (Verified Allergy, Intermediate, 05/08/24) Sacubitril (Unverified Allergy, Unknown, SOB Weakness , 08/21/24) Per pt report Valsartan (Unverified Allergy, Unknown, SOB Weakness , 08/21/24) Per pt report Metoprolol (Verified Adverse Reaction, Severe, 07/12/24) "don't feel very good" per patient Sitagliptin (Verified Adverse Reaction, Severe, 07/12/24) Pt states it made him "feel not very good" Medications Current Medications Medications Dose Ordered Sig/Louie Route Start Time Stop Time Status Last Admin Dose Admin Acetaminophen/ Hydrocodone Bitart 1 tab Q4HP PRN PO 09/11/24 11:45 UNV Ondansetron HCl 4 mg Q4HP PRN IV 09/11/24 11:45 UNV Docusate Sodium 100 mg BIDPRN PRN PO 09/11/24 11:45 UNV Acetaminophen 650 mg Q6HP PRN PO 09/11/24 11:45 UNV Furosemide 40 mg DAILY PO 09/12/24 10:00 UNV Spironolactone 25 mg DAILY PO 09/12/24 10:00 UNV Tamsulosin HCl 0.4 mg DAILY PO 09/12/24 10:00 UNV Exam Vital Signs Vital Signs Date Time Temp Pulse Resp B/P (MAP) Pulse Ox O2 Delivery O2 Flow Rate FiO2 09/11/24 11:30 85 23 111/50 (70) 98 09/11/24 08:15 Room Air* 0 21 09/11/24 07:30 98.4 98.4 General Appearance: Alert, Oriented X3, Cooperative, mild distress HEENT: Atraumatic, PERRLA Respiratory: Clear to auscultation, Normal air movement Cardiovascular: Normal S1, Normal S2 Abdominal: Normal bowel sounds, Soft, No tenderness, No hepatospenomegaly Extremities: No clubbing, No cyanosis, No edema Skin: No rashes, No breakdown, No significant lesion Neuro: Normal speech, Other (weakness) Psych/Mental Status: Mental status NL Labs/Xrays Labs Test 09/11/24 10:05 09/11/24 07:12 09/11/24 06:49 Range/Units Troponin I High Sensitivity 18 </=54 ng/L Urine Color Yellow Yellow Urine Clarity Ex.turbid Clear Urine pH 8.0 5.0-9.0 Urine Specific [place] 1.019 1.001-1.035 Urine Protein Trace H Negative Urine Ketones Negative Negative Urine Blood Negative Negative /uL Urine Nitrite Negative Negative Urine Bilirubin Negative Negative Urine Urobilinogen Normal Negative mg/dL Urine Leukocyte Esterase Negative Negative /uL Urine RBC 4 0 - 3 /hpf Urine Microscopic WBC 0-3 /HPF Urine Squamous Epithelial Cells None seen <5 /hpf Urine Amorphous Crystals Few None Seen /hpf Urine Bacteria None seen None Seen /hpf Urine Glucose Normal Normal mg/dL White Blood Count 12.4 H 4.4-10.8 10^3/uL Red Blood Count 2.88 L 4.5-5.90 10^6/uL Hemoglobin 10.0 L 13.5-17.5 g/dL Hematocrit 30.2 L 41.0-53.0 % Mean Corpuscular Volume 104.6 H 80.0-100.0 fL Mean Corpuscular Hemoglobin 34.7 H 28.0-32.0 pg Mean Corpuscular Hemoglobin Concent 33.2 32.0-36.0 g/dL Red Cell Distribution Width 15.0 H 11.8-14.3 % Platelet Count 151 140-450 10^3/uL Mean Platelet Volume 8.0 6.9-10.8 fL Neutrophils (%) (Auto) 88.1 H 37.0-80.0 % Lymphocytes (%) (Auto) 4.2 L 10.0-50.0 % Monocytes (%) (Auto) 6.4 0.0-12.0 % Eosinophils (%) (Auto) 0.9 0.0-7.0 % Basophils (%) (Auto) 0.4 0.0-2.0 % Neutrophils # (Auto) 10.9 H 1.6-8.6 10 ^3/uL Lymphocytes # (Auto) 0.5 0.4-5.4 10 ^3/uL Monocytes # (Auto) 0.8 0-1.3 10 ^3/uL Eosinophils # (Auto) 0.1 0-0.8 10 ^3/uL Basophils # (Auto) 0.1 0-0.2 10 ^3/uL Nucleated Red Blood Cells 0.0 % Sodium Level 139 136-145 mmol/L Potassium Level 4.6 3.5-5.1 mmol/L Chloride Level 104 98-107 mmol/L Carbon Dioxide Level 26 20-31 mmol/L Anion Gap 9 5-15 Blood Urea Nitrogen 31 H 9-23 mg/dL Creatinine 1.43 H 0.700-1.30 mg/dL Glomerular Filtration Rate Calc 48 >90 mL/min BUN/Creatinine Ratio 21.7 H 10.0-20.0 Serum Glucose 97 74-106 mg/dL Lactic Acid Level 2.0 0.4-2.0 mmol/L Calcium Level 9.9 8.7-10.4 mg/dL CHEST RADIOGRAPH FINDINGS: Lines and Tubes: None Lungs: COPD. Possible superimposed viral pneumonia. Pleura: No effusion. No pneumothorax. Cardiomediastinal contours: Cardiomegaly Bones: Unremarkable IMPRESSION: COPD with possible superimposed viral pneumonia. EXAM: CT HEAD WITHOUT CONTRAST FINDINGS: There is no evidence of acute intracranial hemorrhage, extra-axial collection, mass effect, midline shift, herniation or hydrocephalus. The ventricles, sulci and cisterns are age appropriate. The conley-white differentiation is intact. Patchy periventricular and subcortical white matter hypoattenuation is nonspecific but may be related to small vessel ischemic disease. The visualized paranasal sinuses and mastoid air cells are clear. The surrounding soft tissues and osseous structures are unremarkable. IMPRESSION: No acute intracranial abnormality. Assessment/Plan Assessment/Plan Assessment: Generalized weakness, Failure to thrive, CHF, Atrial fibrillation, Rheumatoid arthritis, COPD, Plan: Admit to Med-Surg, Social service consult, Physical therapy evaluation, Dietary consult, Fall risk, Breathing treatments as needed, Blood cultures, Plan discussed with: Patient My Orders Orders - NICHOLE WATTS Procedure Category Date Status Time Admit ADMIT 09/11/24 Transmitted 11:41 Code Status CODE 09/11/24 Transmitted 11:41 2 Gm Sodium Diet DIET 09/11/24 Transmitted Lunch Hydrocodone-Acet PHA 09/11/24 Logged 5/325mg Tab ([place] 11:45 Ondansetron Hcl PHA 09/11/24 Logged (Zofran) 11:45 Docusate Sodium PHA 09/11/24 Logged Capsule (Colace 11:45 Fall Risk Precautions CHEPE 09/11/[address] 11:41 Complete Blood Count LAB 09/12/24 Verified 04:00 Comprehensive LAB 09/12/24 Verified Metabolic Panel 04:00 Pt Request For Service PT 09/11/24 Logged 11:41 Condition: Serious CHEPE 09/11/24 In Process 11:41 Acetaminophen Tablet PHA 09/11/24 Logged (Tylenol Tablet) 11:45 Furosemide Tablet PHA 09/12/24 Logged (Lasix Tablet) 10:00 Spironolactone PHA 09/12/24 Logged (Aldactone) 10:00 Tamsulosin PHA 09/12/24 Logged Hydrochloride (Flomax) 10:00 Date of Service: Sep 11, 2024 Billing Provider: NICHOLE WATTS Common Visit Codes: [id number] INP/OBS CARE (MOD) NICHOLE WATTS Sep 11, 2024 12:44
[2024-09-11] MEDS: TAMSULOSIN HYDROCHLORIDE 0.4 MG CAP PO SCH (17:36)
[2024-09-11] MEDS: IPRATROPIUM BROM 0.5 MG/2.5ML INH SOL NEB PRN (18:33)
[2024-09-11] MEDS: ALBUTEROL SULF 2.5 MG/0.5ML(0.5%) NEB SOLN NEB PRN (18:33)
[2024-09-11] MEDS: HYDROcodone-ACET 5/325MG TAB PO PRN (22:21)
[2024-09-12] VITALS (13 sets, daily range): BP systolic 105–131; BP diastolic 47–75; PULSE 71–107; RESP 14–20; TEMP 97.4–98.3; O2SAT 90–100
[2024-09-12 06:29] LABS: Basophils # (auto) 0 10 ^3/uL (0-0.2); Eosinophils # (auto) 0.1 10 ^3/uL (0-0.8); Hematocrit 28.6 % (41.0-53.0); Hemoglobin 9.7 g/dL (13.5-17.5); Lymphocytes # (auto) 0.6 10 ^3/uL (0.4-5.4); Monocytes # (auto) 0.8 10 ^3/uL (0-1.3); Red Cell Distribution Width 14.7 % (11.8-14.3)
[2024-09-12 06:31] LABS: Basophils % (auto) 0.4 % (0.0-2.0); Lymphocytes % (auto) 5.6 % (10.0-50.0); Mean Corpuscular Hemoglobin 35.1 pg (28.0-32.0); Mean Corpuscular Hgb Conc. 33.9 g/dL (32.0-36.0); Mean Corpuscular Volume 103.4 fL (80.0-100.0); Monocytes % (auto) 6.5 % (0.0-12.0); Neutrophils % (auto) 86.5 % (37.0-80.0); Nucleated Red Blood Cells % 0.1 %; Platelet Count (auto) 133 10^3/uL (140-450); Red Blood Cells 2.77 10^6/uL (4.5-5.90); White Blood Cell 11.5 10^3/uL (4.4-10.8)
[2024-09-12 06:43] LABS: Alanine Aminotransferase 15 U/L (7-40); Albumin 3.4 g/dL (3.2-4.8); Anion Gap 6 (5-15); Aspartate Aminotransferase 29 U/L (<34); BUN/Creatinine Ratio 21.9 (10.0-20.0); Bilirubin, Total 0.6 mg/dL (0.2-1.0); Calcium 9.3 mg/dL (8.7-10.4); Carbon Dioxide 28 mmol/L (20-31); Glucose 86 mg/dL (74-106); Potassium 4.9 mmol/L (3.5-5.1); Sodium 141 mmol/L (136-145); Total Protein 5.8 g/dL (5.7-8.2)
[2024-09-12 06:51] LABS: Alkaline Phosphatase 219 U/L (46-116); Blood Urea Nitrogen 30 mg/dL (9-23); Chloride 107 mmol/L (98-107)
[2024-09-12] MEDS: hydrOXYchloroQUINE SULFATE 200 MG TAB PO SCH (09:11)
[2024-09-12] MEDS: SPIRONOLACTONE 25 MG TAB PO SCH (09:12)
[2024-09-12] MEDS: FUROSEMIDE 40 MG TAB PO SCH (09:12)
--- NOTE | 2024-09-12 10:20 | DVHPN2 ---
Progress Note Date Seen: Sep 12, 2024 Medical Necessity Reason Pt with a Central, PICC or Fol: No Subjective Patient reports: No new complaints Review of Systems: HEENT:Normal, CVS:Normal, RESPIRATORY:Normal, GI:Normal, :Normal, MSK:Normal, NEURO:Normal Objective vital signs Vital Sign Date Time Temp Pulse Resp B/P (MAP) Pulse Ox O2 Delivery O2 Flow Rate FiO2 09/12/24 09:12 105/64 09/12/24 09:00 97.4 76 16 98 97.4 09/12/24 08:53 Room Air 0.0 09/12/24 08:53 21 Total Intake and Output 09/11/24 09/11/24 09/12/24 15:00 23:00 07:00 Intake Total 900 ml Balance 900 ml medications Current Medications Medications Dose Ordered Sig/Louie Route Start Time Stop Time Status Last Admin Dose Admin Acetaminophen/ Hydrocodone Bitart 1 tab Q4HP PRN PO 09/11/24 11:45 09/12/24 02:42 1 TAB Ondansetron HCl 4 mg Q4HP PRN IV 09/11/24 11:45 Docusate Sodium 100 mg BIDPRN PRN PO 09/11/24 11:45 Acetaminophen 650 mg Q6HP PRN PO 09/11/24 11:45 Furosemide 40 mg DAILY PO 09/12/24 10:00 Spironolactone 25 mg DAILY PO 09/12/24 10:00 09/12/24 09:12 25 MG Tamsulosin HCl 0.4 mg QPM PO 09/11/24 18:00 09/11/24 17:36 0.4 MG Hydroxychloroquine Sulfate 200 mg DAILY PO 09/12/24 10:00 09/12/24 09:11 200 MG Albuterol 2.5 mg Q4HPRN PRN NEB 09/11/24 17:45 09/11/24 18:33 2.5 MG Ipratropium [place] 0.5 mg Q6HWA NEB 09/12/24 12:00 UNV Levalbuterol HCl 0.625 mg Q6HR NEB 09/12/24 12:00 UNV Tamsulosin HCl 0.4 mg QPM PO 09/12/24 18:00 UNV Examination: GENERAL:Normal, HEENT:Normal, NECK:Normal, LUNGS:Normal, CVS:Normal, ABDOMEN:Normal, MSK:Normal, MSK:Abnormal (skin tears, ecchymosis), SKIN:Normal, NEURO:Normal, :Normal laboratory and microbiology Laboratory Tests 09/12/24 05:50 Test 09/12/24 05:50 Range/Units Serum Glucose 86 74-106 mg/dL Microbiology Date/Time Source Procedure Growth Status 09/11/24 06:49 Blood Blood Culture - Preliminary NO GROWTH AFTER 24 HOURS OF INCUBATION. 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
[2024-09-12] MEDS: ACETAMINOPHEN 325 MG TAB PO PRN (11:14)
[2024-09-12] MEDS: IPRATROPIUM BROM 0.5 MG/2.5ML INH SOL NEB SCH (11:29)
[2024-09-12] MEDS: LEVALBUTEROL HCL 1.25 MG/3 ML NEB NEB SCH (11:29)
[2024-09-12] MEDS: TAMSULOSIN HYDROCHLORIDE 0.4 MG CAP PO SCH (17:10)
[2024-09-12] MEDS: DOCUSATE SOD 100 MG CAP PO PRN (21:48)
[2024-09-13] VITALS (16 sets, daily range): BP systolic 103–132; BP diastolic 46–93; PULSE 69–114; RESP 14–20; TEMP 97.6–98.4; O2SAT 90–100
[2024-09-13 06:19] LABS: Eosinophils # (auto) 0.1 10 ^3/uL (0-0.8); Eosinophils % (auto) 0.6 % (0.0-7.0); Monocytes # (auto) 0.8 10 ^3/uL (0-1.3); Monocytes % (auto) 6.7 % (0.0-12.0)
[2024-09-13 06:22] LABS: Basophils # (auto) 0.1 10 ^3/uL (0-0.2); Basophils % (auto) 0.4 % (0.0-2.0); Hematocrit 29.1 % (41.0-53.0); Hemoglobin 9.8 g/dL (13.5-17.5); Lymphocytes # (auto) 0.7 10 ^3/uL (0.4-5.4); Lymphocytes % (auto) 5.9 % (10.0-50.0); Mean Corpuscular Hgb Conc. 33.7 g/dL (32.0-36.0); Mean Corpuscular Volume 103.9 fL (80.0-100.0); Neutrophils % (auto) 86.4 % (37.0-80.0); Platelet Count (auto) 119 10^3/uL (140-450); Red Cell Distribution Width 14.7 % (11.8-14.3); White Blood Cell 11.6 10^3/uL (4.4-10.8)
[2024-09-13 06:36] LABS: Anion Gap 7 (5-15); Carbon Dioxide 29 mmol/L (20-31); Chloride 101 mmol/L (98-107); Sodium 137 mmol/L (136-145)
[2024-09-13 06:42] LABS: BUN/Creatinine Ratio 22.6 (10.0-20.0); Blood Urea Nitrogen 28 mg/dL (9-23); Glucose 83 mg/dL (74-106)
--- NOTE | 2024-09-13 12:33 | DVHPN2 ---
Progress Note Date Seen: Sep 13, 2024 Medical Necessity Reason Pt with a Central, PICC or Fol: No Subjective Patient reports: No new complaints Review of Systems: HEENT:Normal, CVS:Normal, RESPIRATORY:Normal, GI:Normal, :Normal, MSK:Normal, NEURO:Normal Objective vital signs Vital Sign Date Time Temp Pulse Resp B/P (MAP) Pulse Ox O2 Delivery O2 Flow Rate FiO2 09/13/24 11:17 74 18 100 09/13/24 11:11 Room Air* 0 21 09/13/24 09:30 97.6 119/65 (83) 97.6 Total Intake and Output 09/12/24 09/12/24 09/13/24 15:00 23:00 07:00 Intake Total 800 ml 200 ml Output Total 500 ml Balance 800 ml -300 ml medications Current Medications Medications Dose Ordered Sig/Louie Route Start Time Stop Time Status Last Admin Dose Admin Acetaminophen/ Hydrocodone Bitart 1 tab Q4HP PRN PO 09/11/24 11:45 09/12/24 21:46 1 TAB Ondansetron HCl 4 mg Q4HP PRN IV 09/11/24 11:45 Docusate Sodium 100 mg BIDPRN PRN PO 09/11/24 11:45 09/12/24 21:48 100 MG Acetaminophen 650 mg Q6HP PRN PO 09/11/24 11:45 09/13/24 01:33 650 MG Furosemide 40 mg DAILY PO 09/12/24 10:00 09/13/24 09:11 40 MG Spironolactone 25 mg DAILY PO 09/12/24 10:00 09/13/24 09:11 25 MG Hydroxychloroquine Sulfate 200 mg DAILY PO 09/12/24 10:00 09/13/24 09:10 200 MG Albuterol 2.5 mg Q4HPRN PRN NEB 09/11/24 17:45 09/11/24 18:33 2.5 MG Ipratropium [place] 0.5 mg Q6HWA NEB 09/12/24 12:00 09/13/24 11:11 0.5 MG Levalbuterol HCl 0.625 mg Q6HR NEB 09/12/24 12:00 09/13/24 11:11 0.625 MG Tamsulosin HCl 0.4 mg QPM PO 09/12/24 18:00 09/12/24 17:10 0.4 MG Examination: GENERAL:Normal, HEENT:Normal, NECK:Normal, LUNGS:Normal, CVS:Normal, ABDOMEN:Normal, MSK:Normal, MSK:Abnormal (skin tears), SKIN:Normal, NEURO:Normal, :Normal laboratory and microbiology Laboratory Tests 09/13/24 04:56 Test 09/13/24 04:56 Range/Units Serum Glucose 83 74-106 mg/dL Microbiology Date/Time Source Procedure Growth Status 09/11/24 22:35 Nose MRSA Screen - Final Complete 09/11/24 06:49 Blood Blood Culture - Preliminary NO GROWTH AFTER 48 HOURS OF INCUBATION. 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 Nephrology consultation desired d/t low GFR and elevated BUN and Cr. 2. Encourage optimal PO intake, Try nepro PO 240ml BID if he tolerates 3. Consider TF if PO feedings and nurishments are not tolearted Expected Outcomes/Goals: gradual weight gain and improved strength and healed wounds Date of Service: Sep 13, 2024 Billing Provider: JESSICA VILLARREAL MD Common Visit Codes: [id number] INP/OBS CARE(HIGH) Secondary Visit Codes: [id number] CARE PLAN 30 MINUTES JESSICA VILLARREAL MD Sep 13, 2024 12:33
[2024-09-14] VITALS (7 sets, daily range): BP systolic 111–144; BP diastolic 54–65; PULSE 71–74; RESP 18; TEMP 36.6; O2SAT 94–100
--- NOTE | 2024-09-14 09:00 | DVHDS2 ---
Discharge Summary Date of Admission Sep 11, 2024 at 11:41 Date of Discharge: Sep 14, 2024 Labs/Diagnostic Data: Laboratory Results Test 09/13/24 04:56 09/12/24 05:50 09/11/24 10:05 09/11/24 07:12 White Blood Count 11.6 10^3/uL (4.4-10.8) Red Blood Count 2.80 10^6/uL (4.5-5.90) Hemoglobin 9.8 g/dL (13.5-17.5) Hematocrit 29.1 % (41.0-53.0) Mean Corpuscular Volume 103.9 fL (80.0-100.0) Mean Corpuscular Hemoglobin 35.0 pg (28.0-32.0) Mean Corpuscular Hemoglobin Concent 33.7 g/dL (32.0-36.0) Red Cell Distribution Width 14.7 % (11.8-14.3) Platelet Count 119 10^3/uL (140-450) Mean Platelet Volume 8.2 fL (6.9-10.8) Neutrophils (%) (Auto) 86.4 % (37.0-80.0) Lymphocytes (%) (Auto) 5.9 % (10.0-50.0) Monocytes (%) (Auto) 6.7 % (0.0-12.0) Eosinophils (%) (Auto) 0.6 % (0.0-7.0) Basophils (%) (Auto) 0.4 % (0.0-2.0) Neutrophils # (Auto) 10.0 10 ^3/uL (1.6-8.6) Lymphocytes # (Auto) 0.7 10 ^3/uL (0.4-5.4) Monocytes # (Auto) 0.8 10 ^3/uL (0-1.3) Eosinophils # (Auto) 0.1 10 ^3/uL (0-0.8) Basophils # (Auto) 0.1 10 ^3/uL (0-0.2) Nucleated Red Blood Cells 0.0 % Sodium Level 137 mmol/L (136-145) Potassium Level 5.0 mmol/L (3.5-5.1) Chloride Level 101 mmol/L (98-107) Carbon Dioxide Level 29 mmol/L (20-31) Anion Gap 7 (5-15) Blood Urea Nitrogen 28 mg/dL (9-23) Creatinine 1.24 mg/dL (0.700-1.30) Glomerular Filtration Rate Calc 57 mL/min (>90) BUN/Creatinine Ratio 22.6 (10.0-20.0) Serum Glucose 83 mg/dL (74-106) Calcium Level 9.0 mg/dL (8.7-10.4) Total Bilirubin 0.6 mg/dL (0.2-1.0) Aspartate Amino Transferase (AST) 29 U/L (<34) Alanine Aminotransferase (ALT) 15 U/L (7-40) Alkaline Phosphatase 219 U/L (46-116) Total Protein 5.8 g/dL (5.7-8.2) Albumin 3.4 g/dL (3.2-4.8) Troponin I High Sensitivity 18 ng/L (</=54) Urine Color Yellow (Yellow) Urine Clarity Ex.turbid (Clear) Urine pH 8.0 (5.0-9.0) Urine Specific [place] 1.019 (1.001-1.035) Urine Protein Trace (Negative) Urine Ketones Negative (Negative) Urine Blood Negative /uL (Negative) Urine Nitrite Negative (Negative) Urine Bilirubin Negative (Negative) Urine Urobilinogen Normal mg/dL (Negative) Urine Leukocyte Esterase Negative /uL (Negative) Urine RBC 4 /hpf (0 - 3) Urine Microscopic WBC /HPF (0-3) Urine Squamous Epithelial Cells None seen /hpf (<5) Urine Amorphous Crystals Few /hpf (None Seen) Urine Bacteria None seen /hpf (None Seen) Urine Glucose Normal mg/dL (Normal) Test 09/11/24 06:49 Lactic Acid Level 2.0 mmol/L (0.4-2.0) Other Laboratory Tests 09/13/24 04:56 Brief Hx & Hospital Course: SEE DICTATED NOTE Condition at Discharge: Guarded Final Diagnosis/Problems List CHF Discharge Disposition: Hospice - Home Discharge Instruct/Medications Diet: Cardiac 2g Na,low cholest Activity: No Restrictions, As Tolerated Follow Up/Referral: FU WITH HOSPICE Medications: PER HOSPICE Discharge Statement: "Patient was advised to return to the ER or call 911 if any headaches, dizziness, shortness of breath, chest pain, abdominal pain, bleeding, fevers, or worsening of medical condition. Patient was counseled about treatment plan, medications, possible side effects, patientverbalized understanding. All questions were answered to the best of my ability. This discharge took greater then 30 minutes in planning, reviewing documentation, counseling the patient, and discussing with other team members." ASSESSMENT ASSESSMENT Assessment CHF Date of Service: Sep 14, 2024 Billing Provider: JESSICA VILLARREAL MD Common Visit Codes: 10143-DYE/OBS DISCH DAY >30min JESSICA VILLARREAL MD Sep 14, 2024 09:00
--- NOTE | 2024-09-14 09:33 | DVHDS ---
DATE OF DISCHARGE: 09/14/2024 HISTORY OF PRESENT ILLNESS: The patient is an 84-year-old gentleman who was admitted with history of fall and has history of congestive heart failure, BPH, COPD, and aortic aneurysm. He also has a history of AFib. HOSPITAL COURSE: The patient had a CT of head that showed no acute intracranial abnormality. The patient's blood cultures were negative. His creatinine was 1.3. The patient's hemoglobin was 9.8. The patient currently is doing well and will be discharged home under hospice. He has been instructed not to take Xarelto in view of high fall risk. He will follow up with hospice. FINAL DIAGNOSES: Therefore, * [id number] systolic heart failure. * Status post fall with skin tears. * Atrial fibrillation with secondary hypercoagulable state, to stop Xarelto due to high fall risk. * COPD. * Rheumatoid arthritis. * Anemia. * BPH. 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 * Hospice care. Time spent in discharge planning and review of plan with the patient and nursing was 37 minutes. MD FRANK Finch/KRAIG TID: [id number] RECEIPT: [id number]
== END 2024-09-14 12:10 | disposition hospice, home (50) | DRG 291 ==
LOC: EDBD 04:50 → ER 04:50 → OVERFLOW 11:41 → CENTRAL 21:22
PROVIDERS: ADMIT Internal Medicine; ATTEND Internal Medicine
DX: I11.0 Hypertensive heart disease with heart failure (principal); I50.23 Acute on chronic systolic (congestive) heart failure; D68.69 Other thrombophilia; I48.92 Unspecified atrial flutter; Z68.1 Body mass index [BMI] 19.9 or less, adult; R62.7 Adult failure to thrive; I48.91 Unspecified atrial fibrillation; Z51.5 Encounter for palliative care; M06.9 Rheumatoid arthritis, unspecified; J44.9 Chronic obstructive pulmonary disease, unspecified; N40.0 Benign prostatic hyperplasia without lower urinary tract symptoms; D64.9 Anemia, unspecified; I07.1 Rheumatic tricuspid insufficiency; Z88.2 Allergy status to sulfonamides; Z88.8 Allergy status to other drugs, medicaments and biological substances; Z79.01 Long term (current) use of anticoagulants; J98.4 Other disorders of lung; Z91.81 History of falling; Z87.11 Personal history of peptic ulcer disease
CPT/HCPCS: 36415; 70450; 71045; 80048; 80053; 81001; 83605; 84484; 85025; 87040; 87081; 93005; 94640; 96365; 96375; 97110; 97116; 97163; 99291; G0378; J2405

== ENCOUNTER 2024-09-24 17:21 | Inpatient (IN) | payer OTHER, MEDICARE ==
[~2024-09-24] VITALS: Ht 180.3 cm; Wt 49.5 kg
[~2024-09-24 17:21] MED LIST changes: -AZIT500T66 PO; -METH4PAK PO
--- NOTE | 2024-09-24 17:30 | ED.PDOC ---
History of Present Illness HPI Comments This is an 84-year-old male who comes in with chief complaint of generalized weakness and shortness for breath for the past two days. The patient is also having some chest tightness. The patient states that the shortness a breath increases with exertion. The chest pain is a 5/10. The patient denies any fev er or cough. There has been no chills. The patient states that he was discharged this past . Time Seen by MD: 17:28 Primary Care Provider: CT Reviewed Notes: Nurses Notes, Margin Clerk Notes, Medications, Allergies (Allergies listed above) Allergies: Coded Allergies: Sulfa Antibiotics (Verified Allergy, Severe, 05/08/24) Sulfabenzamide (Verified Allergy, Intermediate, 05/08/24) Sulfacetamide (Verified Allergy, Intermediate, 05/08/24) Sulfathiazole (Verified Allergy, Intermediate, 05/08/24) Sacubitril (Unverified Allergy, Unknown, SOB Weakness , 08/21/24) Per pt report Valsartan (Unverified Allergy, Unknown, SOB Weakness , 08/21/24) Per pt report Metoprolol (Verified Adverse Reaction, Severe, 07/12/24) "don't feel very good" per patient Sitagliptin (Verified Adverse Reaction, Severe, 07/12/24) Pt states it made him "feel not very good" Home Meds Active Scripts Hydroxychloroquine Sulfate (Hydroxychloroquine Sulfat) 200 Mg Tab, 200 MG PO DAILY, #30 TAB 5 Refills Prov:CONNIE COLON MD 07/01/24 Hydrocodone-Acetaminophen (Hydrocodone Bitartrate/AC 5-325 mg) 1 Tab Tab, 1 TAB PO Q6HPRN PRN, #20 TAB Prov:CONNIE COLON MD 07/01/24 Rivaroxaban (XARELTO) 20 Mg Tab, 1 TAB PO QPM, #30 TAB 5 Refills Prov:CONNIE COLON MD 07/01/24 Albuterol Sulfate (VENTOLIN MDI) 90 Mcg Ih, 90 MCG IN QID PRN, #1 INH Prov:RAY CORCORAN MD 06/17/24 Spironolactone (Aldactone) 25 Mg Tab, 1 TAB PO DAILY, #30 TAB 5 Refills Prov:HERBIE LEI MD 05/11/24 Furosemide (Lasix) 40 Mg Tab, 40 MG PO DAILY for 30 Days, #30 TAB 5 Refills Prov:HERBIE LEI MD 05/11/24 Metoprolol Succinate (Metoprolol Succinate Er) 25 Mg Tab, 1 TAB PO DAILY, #30 TAB 1 Refill Prov:ZEENAT PRATT MD 04/20/24 Empagliflozin (Jardiance) 10 Mg Tab, 10 MG PO DAILY for 30 Days, #30 TAB 1 Refill Prov:ZEENAT PRATT MD 04/20/24 Epinephrine (Anaphylaxis) (Auvi-Q) 0.1 Mg/0.1 Ml Inj, 0.1 MG IJ O PRN for 1 Day, #1 INJ Prov:MARCELO TOWNSEND MD 09/09/23 Reported Medications Zolpidem Tartrate (Ambien) 10 Mg Tab, 1 TAB PO QPM 09/20/23 Tamsulosin Hcl (Flomax) 0.4 Mg Cap, 0.4 MG PO DAILY, CAP 09/04/23 Information Source: Patient, Emergency Med Personnel Mode of Arrival: EMS Severity: Moderate Timing: Days Duration: Since onset Prehospital treatment: 12 Lead EKG, Double Needle Operator Associated signs and symptoms Associated shortness of breath with the chest pain and weakness Past Medical History PAST MEDICAL HISTORY: AFIB, Arthritis, CHF, COPD, PE Past Medical History (Other): AAA Surgical History: Hernia Repair, Tonsillectomy Surgical History (Other): Hemorrhoidectomy, PUD surgery Family History Family History: Reviewed,noncontributory to illness Social History Smoker: Non-Smoker Alcohol: Denies ETOH Use Drugs: Denies Drug Use Lives In: Home Constitutional: denies: chills, diaphoresis, fatigue, fever, malaise, sweats, weakness, others EENTM: denies: blurred vision, double vision, ear bleeding, ear discharge, ear drainage, ear pain, ear ringing, eye pain, eye redness, hearing loss, mouth pain, mouth swelling, nasal discharge, nose bleeding, nose congestion, nose pain, photophobia, tearing, throat pain, throat swelling, voice changes, others Respiratory: reports: shortness of breath; denies: cough, hemoptysis, orthopnea, SOB at rest, SOB with excertion, stridor, wheezing, others Cardiovascular: reports: chest pain; denies: dizzy spells, diaphoresis, Dyspnea on exertion, edema, irregular heart beat, left arm pain, lightheadedness, palpitations, PND, syncope, others Gastrointestinal: denies: abdomen distended, abdominal pain, blood streaked bowels, constipated, diarrhea, dysphagia, difficulty swallowing, hematemesis, melena, nausea, poor appetite, poor fluid intake, rectal bleeding, rectal pain, vomiting, others Genitourinary: denies: burning, dysuria, flank pain, frequency, hematuria, incontinence, penile discharge, penile sore, pain, testicle pain, testicle swelling, urgency, others Neurological: denies: dizziness, fainting, headache, left sided numbness, left sided weakness, numbness, paresthesia, pre-existing deficit, right sided numbness, right sided weakness, seizure, speech problems, tingling, tremors, weakness, others Musculoskeletal: denies: back pain, gout, joint pain, joint swelling, muscle pain, muscle stiffness, neck pain, others Integumetry: denies: bruises, change in color, change in hair/nails, dryness, laceration, lesions, lumps, rash, wounds, others Allergic/Immunocompromised: denies: Difficulty Healing, Frequent Infections, Hives, Itching, others Hematologic/Lymphatic: denies: anemia, blood clots, easy bleeding, easy bruising, swollen glands, others Endocrine: denies: excessive hunger, excessive sweating, excessive thirst, excessive urination, flushing, intolerance to cold, intolerance to heat, unexplained weight gain, unexplained weight loss, others Psychiatric: denies: anxiety, bipolar disorder, depression, hopeless, panic disorder, schizophrenia, sleepless, suicidal, others Physical Exam General Appearance: Moderate Distress, Thin HEENT: Pale Conjuntivae (L), Pale Conjuntivae (R), Pharynx Normal, TMs Normal Neck: Full Range of Motion, Non-Tender, Normal, Normal Inspection Respiratory: Chest Non-Tender, Decreased Breath Sounds, No Accessory Muscle Use Cardiovascular: No Edema, No JVD, No Murmur, No Gallop, Normal Peripheral Pulses, Regular Rate/Rhythm Breast Exam: Deferred Gastrointestinal: No Organomegaly, Non Tender, No Pulsatile Mass, Normal Bowel Sounds, Soft Genitalia: Deferred Pelvic: Deferred Rectal: Deferred Extremities: No calf tenderness, Normal capillary refill, No pedal edema, Other (Bruising to the lower extremities) Musculoskeletal : Apperance: Normal Neurologic: Alert, benzol still operator II-XII nml as Tested, Motor Weakness, Normal Affect, Normal Mood, No Sensory Deficits Cerebellar Function: Normal Reflexes: Normal Skin: Dry, Pallor, Warm Lymphatic: No Adenopathy Was a procedure done? Was a procedure done?: No Differential Dx Considerations may include: ACS, SD, generalized weakness, pneumonia X-Ray, Labs, Meds, VS Vital Signs Date Time Temp Pulse Resp B/P (MAP) Pulse Ox O2 Delivery O2 Flow Rate FiO2 09/24/24 17:44 73 09/24/24 17:43 97.8 80 24 138/76 (96) 100 97.8 Lab Test 09/24/24 17:40 Range/Units White Blood Count 8.6 4.4-10.8 10^3/uL Red Blood Count 3.06 L 4.5-5.90 10^6/uL Hemoglobin 10.7 L 13.5-17.5 g/dL Hematocrit 32.1 L 41.0-53.0 % Mean Corpuscular Volume 104.7 H 80.0-100.0 fL Mean Corpuscular Hemoglobin 34.9 H 28.0-32.0 pg Mean Corpuscular Hemoglobin Concent 33.3 32.0-36.0 g/dL Red Cell Distribution Width 15.3 H 11.8-14.3 % Platelet Count 258 140-450 10^3/uL Mean Platelet Volume 7.2 6.9-10.8 fL Neutrophils (%) (Auto) 84.7 H 37.0-80.0 % Lymphocytes (%) (Auto) 7.5 L 10.0-50.0 % Monocytes (%) (Auto) 6.7 0.0-12.0 % Eosinophils (%) (Auto) 0.7 0.0-7.0 % Basophils (%) (Auto) 0.4 0.0-2.0 % Neutrophils # (Auto) 7.3 1.6-8.6 10 ^3/uL Lymphocytes # (Auto) 0.6 0.4-5.4 10 ^3/uL Monocytes # (Auto) 0.6 0-1.3 10 ^3/uL Eosinophils # (Auto) 0.1 0-0.8 10 ^3/uL Basophils # (Auto) 0 0-0.2 10 ^3/uL Nucleated Red Blood Cells 0.0 % D-Dimer, Quantitative 0.63 H 0.0-0.49 mg/L FEU Sodium Level 138 136-145 mmol/L Potassium Level 5.1 3.5-5.1 mmol/L Chloride Level 102 98-107 mmol/L Carbon Dioxide Level 29 20-31 mmol/L Anion Gap 7 5-15 Blood Urea Nitrogen 24 H 9-23 mg/dL Creatinine 1.52 H 0.700-1.30 mg/dL Glomerular Filtration Rate Calc 44 >90 mL/min BUN/Creatinine Ratio 15.8 10.0-20.0 Serum Glucose 89 74-106 mg/dL Calcium Level 9.7 8.7-10.4 mg/dL Troponin I High Sensitivity 19 </=54 ng/L B-Type Natriuretic Peptide Pending IV Hep-Lock was established The chest x-ray shows: COMPARISON: XY CHEST PORTABLE on DOS: 09/11/24, XY CHEST PORTABLE on DOS: 08/25/24, XY CHEST PORTABLE on DOS: 08/20/24 Findings/Impression: Frontal chest radiograph demonstrates no acute osseous or superficial soft tissue abnormalities. The trachea is midline. Cardiomegaly. Bilateral lower lobe patchy airspace opacities, worse from prior. No pneumothorax. The chemistry panel shows a BUN of 24 and a creatinine of 1.52 The patient's D-dimer is 0.63 At this time, the patient is being admitted Images Reviewed?: Images reviewed and evaluated by me Time of 1ST Reevaluation: 17:32 Reevaluation 1ST: Unchanged Patient Education/Counseling: Diagnosis, Treatment, Prognosis Family Education/Counseling: No Family Present SEPSIS Sepsis Screen Physician Orders B-Type Natriuretic Peptide (09/24/24 17:26) Urinalysis (09/24/24 17:26) Chest Portable (09/24/24 17:26) Heplock Iv (09/24/24 17:26) Pulse Oximetry (09/24/24 17:26) Double Needle Operator (09/24/24 17:26) Blood Pressure (09/24/24 17:26) Type And Screen (09/24/24 17:26) Troponin-I Hs (09/24/24 18:26) Troponin-I Hs (09/24/24 20:26) Electrocardigram (09/24/24 18:26) Electrocardigram (09/24/24 20:26) Vital Signs Date Time Temp Pulse Resp B/P (MAP) Pulse Ox O2 Delivery O2 Flow Rate FiO2 09/24/24 17:44 73 09/24/24 17:43 97.8 80 24 138/76 (96) 100 97.8 Laboratory Tests Test 09/24/24 17:40 White Blood Count 8.6 10^3/uL (4.4-10.8) Departure 1 Departure Time of Disposition: 17:32 Impression: Primary Impression: Acute coronary syndrome Additional Impression: Pulmonary infiltrates Disposition: 09 ADMITTED INPATIENT Admit to: [facility] Condition: Fair Critical Care Note Critical Care Time?: Yes (45 min-critical care time only) Stability Stability form required: Yes Unstable for transfer: Telemetry monitoring (Telemetry monitoring required), ED Physician Assesment (Clinical assesment) Heart Score Heart Score: Heart Score Response (Comments) Value History Moderate Suspicious 1 EKG Repolarization Disturb 1 Age >65 2 Risk Factors >3 or Hx ASHD 2 Troponin Normal limit 0 Total 6 LEAH HERNÁNDEZ MD Sep 24, 2024 17:30
--- NOTE | 2024-09-24 17:45 | ECG ---
[facility] Test Date: 2024-09-24 Test Time: 17:44:16 Pat Name: CORONA ZEPEDA Department: ED Room: 0221T Gender: M Elevator Inspector: yemi : 1940 Requested By: LEAH HERNÁNDEZ Order Number: [id number] Reading MD: Corona Thomas Measurements Intervals [place] Rate: 73 P: 0 UT: 0 QRS: 53 QRSD: 104 T: 70 QT: 428 QTc: 472 Interpretive Statements Atrial fibrillation LVH with secondary repolarization abnormality Electronically Signed On 09-28-2024 18:54:46 PDT by Corona Thomas Please click the below link to view image of tracing.
[2024-09-24 18:05] LABS: Chloride 102 mmol/L (98-107); Mean Corpuscular Hemoglobin 34.9 pg (28.0-32.0); Nucleated Red Blood Cells % 0.0 %; Sodium 138 mmol/L (136-145)
[2024-09-24 18:06] LABS: Anion Gap 7 (5-15); Carbon Dioxide 29 mmol/L (20-31)
[2024-09-24 18:07] LABS: Calcium 9.7 mg/dL (8.7-10.4); Hematocrit 32.1 % (41.0-53.0); Hemoglobin 10.7 g/dL (13.5-17.5); Mean Corpuscular Volume 104.7 fL (80.0-100.0)
[2024-09-24 18:11] LABS: BUN/Creatinine Ratio 15.8 (10.0-20.0); Glucose 89 mg/dL (74-106)
--- NOTE | 2024-09-24 18:13 | DVH ---
EXAM: XY CHEST PORTABLE TECHNIQUE: Single frontal chest radiograph CLINICAL HISTORY: sob COMPARISON: XY CHEST PORTABLE on DOS: 09/11/24, XY CHEST PORTABLE on DOS: 08/25/24, XY CHEST PORTABLE on DOS: 08/20/24 Findings/Impression: Frontal chest radiograph demonstrates no acute osseous or superficial soft tissue abnormalities. The trachea is midline. Cardiomegaly. Bilateral lower lobe patchy airspace opacities, worse from prior. No pneumothorax.
[2024-09-24 18:38] LABS: Blood Urea Nitrogen 24 mg/dL (9-23); Potassium 5.1 mmol/L (3.5-5.1)
--- NOTE | 2024-09-24 19:30 | ECG ---
[facility] Test Date: 2024-09-24 Test Time: 19:26:58 Pat Name: CORONA ZEPEDA Department: ED Room: 0221T Gender: M Film Composer: yemi : 1940 Requested By: LEAH HERNÁNDEZ Order Number: [id number] Reading MD: Corona Thomas Measurements Intervals [place] Rate: 92 P: 0 MS: 0 QRS: 28 QRSD: 96 T: 0 QT: 434 QTc: 537 Interpretive Statements Atrial fibrillation Left ventricular hypertrophy Borderline T abnormalities, inferior leads Prolonged QT interval Electronically Signed On 09-28-2024 18:55:31 PDT by Corona Thomas Please click the below link to view image of tracing.
[2024-09-24] MEDS: HYDROcodone-ACET 10/325MG TAB PO ONE (21:30)
[2024-09-24] MEDS ORDERED: ACETAMINOPHEN 325 MG TAB PO PRN (22:00)
[2024-09-24] MEDS ORDERED: FUROSEMIDE 40 MG/4 ML VIAL IV ONE (22:00)
[2024-09-24] MEDS ORDERED: MORPHINE SULFATE INJ 2 MG/ml SYRG IV PRN ×2 (22:00→22:15)
[2024-09-24] MEDS ORDERED: NITROGLYCERIN 0.4 MG SL TAB SL PRN ×2 (22:00→22:15)
--- NOTE | 2024-09-24 22:00 | DVHHP2 ---
History of Present Illness History of Present Illness Patient is 84 years old male on home hospice care with past medical history of atrial fibrillation, HFrEF, LVEF 10-15%, COPD, pulmonary embolism, rheumatoid arthritis, abdominal aortic aneurysm, BPH, severe MR, severe TR came with a complaint of generalized weakness and shortness of breaths. As per patient he has been having worsening short of breath for last 2 days, even with minimal exertion. Patient also reported mild cough with whitish sputum. On further inquiry patient reported he is feeling weak and feels tired when ambulate around. Patient denied any chest pain, fever, diarrhea. Patient was recently discharged from [facility] after being treated for acute on chronic heart failure, status post fall. Patient's blood thinner was on hold due to frequent fall. Initial lab workup revealed hemoglobin 10.7, MCV 104.7, serum creatinine 1.52, BUN 24, BNP 431, D-dimer 0.63, troponin I -11> 15, CXR- Bilateral lower lobe patchy airspace opacities, Past Medical History atrial fibrillation, HFrEF, LVEF 10-15%, COPD, pulmonary embolism, rheumatoid arthritis, abdominal aortic aneurysm, BPH, severe MR, severe TR Past Surgical History Tonsillectomy, hernia repair, hemorrhoidectomy, PUD surgery Past Social History Patient on home hospice care, denies smoking/alcoholism/drug abuse Review of Systems Review of Systems Allergy- albuterol, sacubitril, sitagliptin, sulfa antibiotic, sulfa sulfabenzamide, sulfacetamide, sulfathiazole on valsartan, Jardiance Patient was seen today at the bedside. Cardiovascular- deny acute chest pain Gastrointestinal- denies any rectal bleeding, nausea or vomiting Musculoskeletal-denies acute joint swelling or tenderness or redness Neurological- denies acute dysarthria, dysphagia, change in vision Psychiatry- denies depression or SI or HI Skin- denies acute rash or purpura Allergies: Coded Allergies: Sulfa Antibiotics (Verified Allergy, Severe, 05/08/24) Sulfabenzamide (Verified Allergy, Intermediate, 05/08/24) Sulfacetamide (Verified Allergy, Intermediate, 05/08/24) Sulfathiazole (Verified Allergy, Intermediate, 05/08/24) Sacubitril (Unverified Allergy, Unknown, SOB Weakness , 08/21/24) Per pt report Valsartan (Unverified Allergy, Unknown, SOB Weakness , 08/21/24) Per pt report Metoprolol (Verified Adverse Reaction, Severe, 07/12/24) "don't feel very good" per patient Sitagliptin (Verified Adverse Reaction, Severe, 07/12/24) Pt states it made him "feel not very good" Medications Current Medications Medications Dose Ordered Sig/Louie Route Start Time Stop Time Status Last Admin Dose Admin Enoxaparin Sodium 30 mg DAILY SC 09/25/24 10:00 UNV Acetaminophen 650 mg Q6HP PRN PO 09/24/24 22:00 UNV Nitroglycerin 0.4 mg Q5MINP PRN SL 09/24/24 22:00 UNV Morphine Sulfate 2 mg Q30M PRN IV 09/24/24 22:00 UNV Exam Vital Signs Vital Signs Date Time Temp Pulse Resp B/P (MAP) Pulse Ox O2 Delivery O2 Flow Rate FiO2 09/24/24 20:00 79 09/24/24 17:43 97.8 24 138/76 (96) 100 97.8 Exam General examination-awake, alert, conversant HEENT- PEERLA, no acute nasal discharge Cardiovascular- S1-S2 audible, rate and rhythm regular, no murmur Respiratory-bilateral lung crackles+ Gastrointestinal-nontender, bowel sound+. Nondistended Musculoskeletal-no acute joint swelling or tenderness or redness Lower extremity- no leg edema Neurological- muscle weakness, muscular atrophy Skin-bruise on arms and legs+ Labs/Xrays Labs Test 09/24/24 20:50 09/24/24 17:40 Range/Units Troponin I High Sensitivity 17 </=54 ng/L White Blood Count 8.6 4.4-10.8 10^3/uL Red Blood Count 3.06 L 4.5-5.90 10^6/uL Hemoglobin 10.7 L 13.5-17.5 g/dL Hematocrit 32.1 L 41.0-53.0 % Mean Corpuscular Volume 104.7 H 80.0-100.0 fL Mean Corpuscular Hemoglobin 34.9 H 28.0-32.0 pg Mean Corpuscular Hemoglobin Concent 33.3 32.0-36.0 g/dL Red Cell Distribution Width 15.3 H 11.8-14.3 % Platelet Count 258 140-450 10^3/uL Mean Platelet Volume 7.2 6.9-10.8 fL Neutrophils (%) (Auto) 84.7 H 37.0-80.0 % Lymphocytes (%) (Auto) 7.5 L 10.0-50.0 % Monocytes (%) (Auto) 6.7 0.0-12.0 % Eosinophils (%) (Auto) 0.7 0.0-7.0 % Basophils (%) (Auto) 0.4 0.0-2.0 % Neutrophils # (Auto) 7.3 1.6-8.6 10 ^3/uL Lymphocytes # (Auto) 0.6 0.4-5.4 10 ^3/uL Monocytes # (Auto) 0.6 0-1.3 10 ^3/uL Eosinophils # (Auto) 0.1 0-0.8 10 ^3/uL Basophils # (Auto) 0 0-0.2 10 ^3/uL Nucleated Red Blood Cells 0.0 % D-Dimer, Quantitative 0.63 H 0.0-0.49 mg/L FEU Sodium Level 138 136-145 mmol/L Potassium Level 5.1 3.5-5.1 mmol/L Chloride Level 102 98-107 mmol/L Carbon Dioxide Level 29 20-31 mmol/L Anion Gap 7 5-15 Blood Urea Nitrogen 24 H 9-23 mg/dL Creatinine 1.52 H 0.700-1.30 mg/dL Glomerular Filtration Rate Calc 44 >90 mL/min BUN/Creatinine Ratio 15.8 10.0-20.0 Serum Glucose 89 74-106 mg/dL Calcium Level 9.7 8.7-10.4 mg/dL B-Type Natriuretic Peptide 431.36 0-100 pg/mL Assessment/Plan Assessment/Plan Assessment and plan # TIMBO likely due to VMN -oral hydration -monitor BNP # acute on chronic HFrEF, EF 10-15% -BNP 431 -continue spironolactone 25 mg p.o. daily -IV Lasix 40 mg b.i.d. -As per patient Patient allergic to metoprolol, Jardiance # AFib -Xarelto on hold due to frequent history of fall # COPD -nebulization as prescribed # pulmonary embolism --Xarelto on hold due to frequent history of fall # BPH -continue Flomax 0.4 mg p.o. daily # rheumatoid arthritis # severe MR, TR # abdominal aortic aneurysm Goals of care, Code status-hospice care ; discussed with >15 minutes PUD prophylaxis: Pantoprazole DVT prophylaxis: lovenox Plan discussed with Dr. Ng , nursing staff, Total time spent on patient evaluation, chart review, assessment and plan, discussion discussion >35 minutes Plan discussed with: Patient, Other (RN) My Orders Orders - ALEX CASTILLO Procedure Category Date Status Time Admit ADMIT 09/24/24 Transmitted 21:54 Complete Blood Count LAB 09/25/24 Verified 04:00 Comprehensive LAB 09/25/24 Verified Metabolic Panel 04:00 Cardiac DIET 09/25/24 Transmitted Diet-2gna,Lofat,Lochol Breakfast Enoxaparin Sodium PHA 09/25/24 Logged (Lovenox) 10:00 Acetaminophen Tablet PHA 09/24/24 Logged (Tylenol Tablet) 22:00 Morphine Sulfate PHA 09/24/24 Logged Injection 22:00 Notify Md Of Changes [facility] 09/24/24 In Process From Base 21:54 Farmer Cash 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 For [facility] 09/24/24 In Process 24 Hours 21:54 Nitroglycerin PHA 09/24/24 Logged Sublingual (Ntrostat 22:00 Furosemide Injection PHA 09/24/24 Transmitted (Lasix Injection) 22:00 Furosemide Injection PHA 09/25/24 Transmitted (Lasix Injection) 06:00 Empagliflozin PHA 09/25/24 Transmitted (Jardiance) 10:00 Spironolactone PHA 09/25/24 Transmitted (Aldactone) 10:00 Tamsulosin PHA 09/25/24 Transmitted Hydrochloride (Flomax) 10:00 (Nf) Metoprolol PHA 09/25/24 Transmitted Succinate (Metoprolol 10:00 Date of Service: Sep 24, 2024 Billing Provider: RUBY NG MD Common Visit Codes: [id number] INP/OBS CARE (HIGH) Secondary Visit Codes: [id number] CARE PLAN 30 MINUTES ALEX CASTILLO Sep 24, 2024 22:00
[2024-09-24] MEDS: FUROSEMIDE 40 MG/4 ML VIAL IV ONE (22:30)
[2024-09-24 23:39] VITALS: BP 112/69; PULSE 86; RESP 20; TEMP 97.8; O2SAT 94
[2024-09-24 23:40] VITALS: PULSE 86; RESP 20; O2SAT 94
[2024-09-25] VITALS (14 sets, daily range): BP systolic 93–125; BP diastolic 56–69; PULSE 69–90; RESP 16–22; TEMP 97.3–97.8; O2SAT 94–100
[2024-09-25 00:53] LABS: Urine Amorphous Crystal FEW /hpf (None Seen); Urine Protein, UAD 1+ (Negative)
[2024-09-25] MEDS ORDERED: FUROSEMIDE 40 MG/4 ML VIAL IV SCH (06:00)
[2024-09-25] MEDS: FUROSEMIDE 40 MG/4 ML VIAL IV SCH (06:00)
[2024-09-25] MEDS: ALBUTEROL SULF 2.5 MG/0.5ML(0.5%) NEB SOLN NEB SCH (06:36)
[2024-09-25] MEDS: IPRATROPIUM BROM 0.5 MG/2.5ML INH SOL NEB SCH (06:37)
[2024-09-25] MEDS: ACETAMINOPHEN 325 MG TAB PO PRN (06:53)
[2024-09-25 09:30] LABS: Hematocrit 31.7 % (41.0-53.0); Hemoglobin 10.7 g/dL (13.5-17.5); Mean Corpuscular Hemoglobin 35.4 pg (28.0-32.0); Mean Corpuscular Volume 105.3 fL (80.0-100.0); Nucleated Red Blood Cells % 0.0 %
[2024-09-25 09:47] LABS: Alanine Aminotransferase 28 U/L (7-40); Albumin 3.5 g/dL (3.2-4.8); Anion Gap 6 (5-15); BUN/Creatinine Ratio 17.0 (10.0-20.0); Bilirubin, Total 0.7 mg/dL (0.2-1.0); Calcium 9.5 mg/dL (8.7-10.4); Carbon Dioxide 30 mmol/L (20-31); Chloride 104 mmol/L (98-107); Potassium 4.6 mmol/L (3.5-5.1); Sodium 140 mmol/L (136-145); Total Protein 5.9 g/dL (5.7-8.2)
[2024-09-25 09:48] LABS: Alkaline Phosphatase 360 U/L (46-116); Blood Urea Nitrogen 26 mg/dL (9-23); Glucose 108 mg/dL (74-106)
[2024-09-25] MEDS ORDERED: TAMSULOSIN HYDROCHLORIDE 0.4 MG CAP PO SCH (10:00)
[2024-09-25] MEDS ORDERED: PATIENTS OWN MEDICATION (Metoprolol Succinate (Metoprolol Succinate Er) 1 TAB) PO SCH (10:00)
[2024-09-25] MEDS ORDERED: SPIRONOLACTONE 25 MG TAB PO SCH (10:00)
[2024-09-25] MEDS ORDERED: METOPROLOL SUCCINATE XL 50 MG TAB PO SCH (10:00)
[2024-09-25] MEDS ORDERED: EMPAGLIFLOZIN 10 MG TAB PO SCH ×2 (10:00)
[2024-09-25] MEDS ORDERED: ENOXAPARIN SOD 30 MG/0.3 ML SYRINGE SC SCH (10:00)
[2024-09-25 10:29] LABS: Alanine Aminotransferase 30.0 U/L (7-40); Albumin 3.4 g/dL (3.2-4.8); Bilirubin, Total 0.7 mg/dL (0.2-1.0); Total Protein 5.9 g/dL (5.7-8.2)
[2024-09-25] MEDS: ENOXAPARIN SOD 30 MG/0.3 ML SYRINGE SC SCH (10:29)
[2024-09-25] MEDS: TAMSULOSIN HYDROCHLORIDE 0.4 MG CAP PO SCH (10:29)
[2024-09-25] MEDS: SPIRONOLACTONE 25 MG TAB PO SCH (10:29)
[2024-09-25 10:33] LABS: Alkaline Phosphatase 360.0 U/L (46-116); Bilirubin, Direct 0.3 mg/dL (<0.3)
--- NOTE | 2024-09-25 13:00 | DVHPN2 ---
Reviewed: Care Plan, H&P, Labs, Medications, Previous Orders, Radiology Changes from previous H/P or p: No Changes Objective Vitals Vital Signs Date Time Temp Pulse Resp B/P (MAP) Pulse Ox O2 Delivery O2 Flow Rate FiO2 09/25/24 11:24 70 18 100 09/25/24 11:18 Room Air 09/25/24 11:18 0 21 09/25/24 09:00 97.6 96/57 (70) 97.6 Intake/Output Intake and Output 09/25/24 07:00 Intake Total 240 ml Output Total 500 ml Balance -260 ml Intake Oral 240 ml Output Urine Total 500 ml Medications Current Medications Medications Dose Ordered Sig/Louie Route Start Time Stop Time Status Last Admin Dose Admin Enoxaparin Sodium 30 mg DAILY SC 09/25/24 10:00 09/25/24 10:29 30 MG Morphine Sulfate 2 mg Q30M PRN IV 09/24/24 22:15 Furosemide 40 mg BIDD IV 09/25/24 06:00 Acetaminophen 650 mg Q6HP PRN PO 09/24/24 22:15 09/25/24 06:53 650 MG Nitroglycerin 0.4 mg Q5MINP PRN SL 09/24/24 22:15 Spironolactone 25 mg DAILY PO 09/25/24 10:00 09/25/24 10:29 25 MG Tamsulosin HCl 0.4 mg DAILY PO 09/25/24 10:00 09/25/24 10:29 0.4 MG Albuterol 2.5 mg Q6HWA [facility] 09/25/24 06:00 09/25/24 11:18 2.5 MG Ipratropium [place] 0.5 mg Q6HWA [facility] 09/25/24 06:00 09/25/24 11:18 0.5 MG Laboratory Results Laboratory Tests 09/25/24 09:00 Chemistry Test 09/24/24 17:40 09/25/24 09:00 Calcium Level 9.7 mg/dL (8.7-10.4) 9.5 mg/dL (8.7-10.4) Albumin 3.4 g/dL (3.2-4.8) Total Protein 5.9 g/dL (5.7-8.2) Coagulation Test 09/24/24 17:40 D-Dimer, Quantitative 0.63 mg/L FEU (0.0-0.49) H Cardiac Markers Test 09/24/24 17:40 B-Type Natriuretic Peptide 431.36 pg/mL (0-100) LFT Test 09/25/24 09:00 Alanine Aminotransferase (ALT) 30 U/L (7-40) Alkaline Phosphatase 360 U/L (46-116) H Aspartate Amino Transferase (AST) 35 U/L (13-40) Direct Bilirubin 0.3 mg/dL (<0.3) Total Bilirubin 0.7 mg/dL (0.2-1.0) Urinalysis Test 09/25/24 00:10 Urine Color Yellow (Yellow) Urine Clarity Turbid (Clear) H Urine pH 8.0 (5.0-9.0) Urine Specific [place] 1.018 (1.001-1.035) Urine Protein 1+ (Negative) H Urine Ketones Negative (Negative) Urine Blood Negative /uL (Negative) Urine Nitrite Negative (Negative) Urine Bilirubin Negative (Negative) Urine Urobilinogen Normal mg/dL (Negative) Urine Leukocyte Esterase Negative /uL (Negative) Urine RBC 1 /hpf (0 - 3) Urine Microscopic WBC 1 /HPF (0-3) Urine Squamous Epithelial Cells None seen /hpf (<5) Urine Amorphous Crystals Few /hpf (None Seen) Urine Bacteria Few /hpf (None Seen) H Urine Glucose Normal mg/dL (Normal) Labs and/or images reviewed: Labs reviewed by me, Image(s) reviewed by me Assessment/Plan Assessment/Plan Acute Hypoxic respiratory failure: Oxygen by nasal cannula Bilateral lower lobe community-acquired pneumonia Gram-positive versus Gram- negative Rocephin azithromycin albuterol Atrovent Solu-Medrol Acute exacerbation of chronic systolic congestive heart failure ejection fraction 10-15 percent : Lasix AFib COPD History of pulmonary embolism BPH Rheumatoid arthritis Severe mitral regurgitation and severe tricuspid catheterization Abdominal aortic aneurysm Hospice revoked Time spent 70 minutes Patient is full code Advanced care planning time 20 minutes Plan discussed with: Patient Date of Service: Sep 25, 2024 Billing Provider: RAY CORCORAN MD Common Visit Codes: 60031-[id number] CARE 30-74 MIN RAY CORCORAN MD Sep 25, 2024 13:00
[2024-09-25] MEDS: cefTRIAXone 1GM/50ML D5W 50 ML IV ONE (13:15)
[2024-09-25] MEDS ORDERED: AZITHROMYCIN 500MG/ 250ML 250 ML IV ONE (13:15)
[2024-09-25] MEDS: HYDROcodone-ACET 5/325MG TAB PO PRN (14:29)
[2024-09-25] MEDS: DOXYCYCLINE 100MG/100ML 100 ML IV SCH (16:26)
[2024-09-26] VITALS (15 sets, daily range): BP systolic 100–141; BP diastolic 64–79; PULSE 69–96; RESP 16–19; TEMP 97.2–98.2; O2SAT 90–100
[2024-09-26] MEDS: cefTRIAXone 1GM/50ML D5W 50 ML IV SCH (08:43)
--- NOTE | 2024-09-26 09:40 | DVHPN2 ---
Reviewed: Care Plan, H&P, Labs, Medications, Previous Orders, Radiology Changes from previous H/P or p: No Changes Objective Vitals Vital Signs Date Time Temp Pulse Resp B/P (MAP) Pulse Ox O2 Delivery O2 Flow Rate FiO2 09/26/24 09:08 97.9 69 19 116/68 (84) 93 97.9 09/26/24 08:27 Room Air* 0 21 Intake/Output Intake and Output 09/26/24 07:00 Intake Total 1300 ml Output Total 500 ml Balance 800 ml Intake Oral 1050 ml IV Total 250 ml Output Urine Total 500 ml # Voids 2 # Bowel Movements 1 Medications Current Medications Medications Dose Ordered Sig/Louie Route Start Time Stop Time Status Last Admin Dose Admin Enoxaparin Sodium 30 mg DAILY SC 09/25/24 10:00 09/25/24 10:29 30 MG Morphine Sulfate 2 mg Q30M PRN IV 09/24/24 22:15 Furosemide 40 mg BIDD IV 09/25/24 06:00 Acetaminophen 650 mg Q6HP PRN PO 09/24/24 22:15 09/26/24 00:34 650 MG Nitroglycerin 0.4 mg Q5MINP PRN SL 09/24/24 22:15 Spironolactone 25 mg DAILY PO 09/25/24 10:00 09/25/24 10:29 25 MG Albuterol 2.5 mg Q6HWA NEB 09/25/24 06:00 09/26/24 07:36 2.5 MG Ipratropium [place] 0.5 mg Q6HWA NEB 09/25/24 06:00 09/26/24 07:36 0.5 MG Ceftriaxone Sodium 50 ml @ 100 mls/hr DAILY@09 IV 09/26/24 09:00 Azithromycin 250 ml @ 125 mls/hr DAILY IV 09/26/24 10:00 UNV Acetaminophen/ Hydrocodone Bitart 1 tab Q6HPRN PRN PO 09/25/24 13:30 09/25/24 21:56 1 TAB Hydroxychloroquine Sulfate 400 mg DAILY PO 09/26/24 10:00 Doxycycline Hyclate 100 ml @ 50 mls/hr Q12H IV 09/25/24 14:00 09/26/24 02:05 50 MLS/HR Tamsulosin HCl 0.4 mg DAILY PO 09/26/24 22:00 Laboratory Results Laboratory Tests 7/7/25 09:00 Urinalysis Test 09/25/24 00:10 Urine Color Yellow (Yellow) Urine Clarity Turbid (Clear) H Urine pH 8.0 (5.0-9.0) Urine Specific [place] 1.018 (1.001-1.035) Urine Protein 1+ (Negative) H Urine Ketones Negative (Negative) Urine Blood Negative /uL (Negative) Urine Nitrite Negative (Negative) Urine Bilirubin Negative (Negative) Urine Urobilinogen Normal mg/dL (Negative) Urine Leukocyte Esterase Negative /uL (Negative) Urine RBC 1 /hpf (0 - 3) Urine Microscopic WBC 1 /HPF (0-3) Urine Squamous Epithelial Cells None seen /hpf (<5) Urine Amorphous Crystals Few /hpf (None Seen) Urine Bacteria Few /hpf (None Seen) H Urine Glucose Normal mg/dL (Normal) Labs and/or images reviewed: Labs reviewed by me, Image(s) reviewed by me Assessment/Plan Assessment/Plan Acute Hypoxic respiratory failure: Oxygen by nasal cannula Bilateral lower lobe community-acquired pneumonia Gram-positive versus Gram- negative Rocephin azithromycin albuterol Atrovent Solu-Medrol Acute exacerbation of chronic systolic congestive heart failure ejection fraction 10-15 percent : Lasix AFib COPD History of pulmonary embolism BPH Rheumatoid arthritis Severe mitral regurgitation and severe tricuspid catheterization Abdominal aortic aneurysm Hospice revoked Time spent 55 minutes Patient is full code Advanced care planning time 20 minutes Ordered Shannan test and rapid flu test Plan discussed with: Patient My Orders Orders - RAY CORCORAN MD Procedure Category Date Status Time Ceftriaxone 1gm/50ml PHA 09/26/24 In Process D5w (Rocephin) 09:00 Hydrocodone-Acet PHA 09/25/24 In Process 5/325mg Tab ([place] 13:30 Hydroxychloroquine PHA 09/26/24 In Process Tablet (Plaquenil Tab 10:00 Doxycycline PHA 09/25/24 In Process 100mg/100ml 14:00 * Dietary Consult CONS 09/25/24 Transmitted 14:34 Cleanse Wound With CHEPE 09/25/24 In Process Wound Clean 11:22 Tamsulosin PHA 09/26/24 In Process Hydrochloride (Flomax) 22:00 Date of Service: Sep 26, 2024 Billing Provider: RAY CORCORAN MD Common Visit Codes: [id number] INP/OBS CARE(HIGH) RAY CORCORAN MD Sep 26, 2024 09:40
[2024-09-26] MEDS ORDERED: AZITHROMYCIN 500MG/ 250ML 250 ML IV SCH (10:00)
--- NOTE | 2024-09-26 10:26 | DVHPN2 ---
Progress Note Date Seen: Sep 26, 2024 Medical Necessity Reason Pt with a Central, PICC or Fol: No Subjective Patient reports: No new complaints Review of Systems: HEENT:Normal, CVS:Normal, RESPIRATORY:Normal, GI:Normal, :Normal, MSK:Normal, NEURO:Normal Objective vital signs Vital Sign Date Time Temp Pulse Resp B/P (MAP) Pulse Ox O2 Delivery O2 Flow Rate FiO2 09/26/24 09:08 97.9 69 19 116/68 (84) 93 97.9 09/26/24 08:27 Room Air* 0 21 Total Intake and Output 09/25/24 09/25/24 09/26/24 15:00 23:00 07:00 Intake Total 50 ml 700 ml 550 ml Output Total 500 ml Balance 50 ml 700 ml 50 ml medications Current Medications Medications Dose Ordered Sig/Louie Route Start Time Stop Time Status Last Admin Dose Admin Enoxaparin Sodium 30 mg DAILY SC 09/25/24 10:00 09/25/24 10:29 30 MG Morphine Sulfate 2 mg Q30M PRN IV 09/24/24 22:15 Furosemide 40 mg BIDD IV 09/25/24 06:00 Acetaminophen 650 mg Q6HP PRN PO 09/24/24 22:15 09/26/24 00:34 650 MG Nitroglycerin 0.4 mg Q5MINP PRN SL 09/24/24 22:15 Spironolactone 25 mg DAILY PO 09/25/24 10:00 09/26/24 09:56 25 MG Albuterol 2.5 mg Q6HWA [facility] 09/25/24 06:00 09/26/24 07:36 2.5 MG Ipratropium [place] 0.5 mg Q6HWA NEB 09/25/24 06:00 09/26/24 07:36 0.5 MG Ceftriaxone Sodium 50 ml @ 100 mls/hr DAILY@09 IV 09/26/24 09:00 09/26/24 10:22 100 MLS/HR Azithromycin 250 ml @ 125 mls/hr DAILY IV 09/26/24 10:00 UNV Acetaminophen/ Hydrocodone Bitart 1 tab Q6HPRN PRN PO 09/25/24 13:30 09/25/24 21:56 1 TAB Hydroxychloroquine Sulfate 400 mg DAILY PO 09/26/24 10:00 09/26/24 09:56 400 MG Doxycycline Hyclate 100 ml @ 50 mls/hr Q12H IV 09/25/24 14:00 09/26/24 02:05 50 MLS/HR Tamsulosin HCl 0.4 mg DAILY PO 09/26/24 22:00 Examination: GENERAL:Normal, HEENT:Normal, NECK:Normal, LUNGS:Normal, CVS:Normal, ABDOMEN:Normal, MSK:Normal, MSK:Abnormal (bruises to face/arms), SKIN:Normal, NEURO:Normal, :Normal laboratory and microbiology Laboratory Tests 09/25/24 09:00 Test 09/25/24 09:00 Range/Units Serum Glucose 108 H 74-106 mg/dL Problem List/Assessment/Plan Problem List/Assessment/Plan * Vzyhr-kq-wmwkzke systolic heart failure: lasix iv * Status post fall with skin tears. * Atrial fibrillation with secondary hypercoagulable state, to stop Xarelto due to high fall risk. * COPD: bronchodilators * Rheumatoid arthritis: on plaquenil * Anemia. * BPH. 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 advance care planning- dnr- time spent 19 mins Plan discussed with: Patient My Orders My Orders Orders - JESSICA VILLARREAL MD Procedure Category Date Status Time Furosemide Injection PHA 09/27/24 Transmitted (Lasix Injection) 07:00 Hydroxychloroquine PHA 09/27/24 Transmitted Tablet (Plaquenil Tab 10:00 Basic Metabolic Panel LAB 09/27/24 Verified 06:00 Date of Service: Sep 26, 2024 Billing Provider: JESSICA VILLARREAL MD Common Visit Codes: [id number] INP/OBS CARE(HIGH) Secondary Visit Codes: [id number] CARE PLAN 30 MINUTES JESSICA VILLARREAL MD Sep 26, 2024 10:26
[2024-09-26] MEDS ORDERED: LACTULOSE 20Gm/30ML SOLN PO PRN (18:45)
[2024-09-26] MEDS: TAMSULOSIN HYDROCHLORIDE 0.4 MG CAP PO SCH (21:25)
[2024-09-27] VITALS (14 sets, daily range): BP systolic 102–123; BP diastolic 42–77; PULSE 69–104; RESP 16–18; TEMP 97.3–98; O2SAT 94–100
[2024-09-27] MEDS: FUROSEMIDE 40 MG/4 ML VIAL IV SCH (06:00)
[2024-09-27 06:30] LABS: Calcium 9.0 mg/dL (8.7-10.4); Chloride 102 mmol/L (98-107); Potassium 4.9 mmol/L (3.5-5.1); Sodium 138 mmol/L (136-145)
[2024-09-27 06:31] LABS: Anion Gap 7 (5-15); Carbon Dioxide 29 mmol/L (20-31)
[2024-09-27 06:36] LABS: Glucose 75 mg/dL (74-106)
[2024-09-27 06:37] LABS: BUN/Creatinine Ratio 19.4 (10.0-20.0); Blood Urea Nitrogen 24 mg/dL (9-23)
--- NOTE | 2024-09-27 09:58 | DVHPN2 ---
Progress Note Date Seen: Sep 27, 2024 Medical Necessity Reason Pt with a Central, PICC or Fol: No Subjective Patient reports: No new complaints Review of Systems: HEENT:Normal, CVS:Normal, RESPIRATORY:Normal, GI:Normal, :Normal, MSK:Normal, NEURO:Normal Objective vital signs Vital Sign Date Time Temp Pulse Resp B/P (MAP) Pulse Ox O2 Delivery O2 Flow Rate FiO2 09/27/24 08:37 97.3 82 18 113/60 (77) 95 97.3 09/27/24 06:15 Room Air* 0 21 Total Intake and Output 09/26/24 09/26/24 09/27/24 15:00 23:00 07:00 Intake Total 200 ml 170 ml Output Total 350 ml Balance -150 ml 170 ml medications Current Medications Medications Dose Ordered Sig/Louie Route Start Time Stop Time Status Last Admin Dose Admin Morphine Sulfate 2 mg Q30M PRN IV 09/24/24 22:15 Acetaminophen 650 mg Q6HP PRN PO 09/24/24 22:15 09/27/24 01:35 650 MG Nitroglycerin 0.4 mg Q5MINP PRN SL 09/24/24 22:15 Spironolactone 25 mg DAILY PO 09/25/24 10:00 09/26/24 09:56 25 MG Albuterol 2.5 mg Q6HWA NEB 09/25/24 06:00 09/27/24 06:15 2.5 MG Ipratropium [place] 0.5 mg Q6HWA NEB 09/25/24 06:00 09/27/24 06:15 0.5 MG Azithromycin 250 ml @ 125 mls/hr DAILY IV 09/26/24 10:00 UNV Acetaminophen/ Hydrocodone Bitart 1 tab Q6HPRN PRN PO 09/25/24 13:30 09/27/24 05:21 1 TAB Tamsulosin HCl 0.4 mg DAILY PO 09/26/24 22:00 09/26/24 21:25 0.4 MG Furosemide 40 mg QAM IV 09/27/24 07:00 Hydroxychloroquine Sulfate 200 mg DAILY PO 09/27/24 10:00 Lactulose 30 ml DAILYPRN PRN PO 09/26/24 18:45 Examination: GENERAL:Normal, HEENT:Normal, NECK:Normal, LUNGS:Normal, CVS:Normal, ABDOMEN:Normal, MSK:Normal, SKIN:Normal, NEURO:Normal, :Normal laboratory and microbiology Laboratory Tests 09/27/24 05:45 09/25/24 09:00 Test 09/27/24 05:45 Range/Units Serum Glucose 75 74-106 mg/dL Problem List/Assessment/Plan Problem List/Assessment/Plan * Mbrnx-wt-lqmktmo systolic heart failure: lasix iv * Status post fall with skin tears. * Atrial fibrillation with secondary hypercoagulable state, to stop Xarelto due to high fall risk. * COPD: bronchodilators * Rheumatoid arthritis: on plaquenil * Anemia. * BPH. 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 advance care planning- dnr- time spent 19 mins Plan discussed with: Patient My Orders My Orders Orders - JESSICA VILLARREAL MD Procedure Category Date Status Time Furosemide Injection PHA 09/27/24 In Process (Lasix Injection) 07:00 Hydroxychloroquine PHA 09/27/24 In Process Tablet (Plaquenil Tab 10:00 DNR CHEPE 09/26/24 In Process 10:32 Code Status CODE 09/26/24 Transmitted 10:34 * Sales Promotion Director CONS 09/26/24 Transmitted Consult Pt Request For Service PT 09/26/24 Logged 13:50 Dietary Evaluation Review Comments: Nepro oral supplements BID Expected Outcomes/Goals: gradual wt gain, improved nutrition related lab values. Date of Service: Sep 27, 2024 Billing Provider: JESSICA VILLARREAL MD Common Visit Codes: [id number] INP/OBS CARE(HIGH) JESSICA VILLARREAL MD Sep 27, 2024 09:58
[2024-09-27] MEDS: DOCUSATE SOD 100 MG CAP PO PRN (15:02)
[2024-09-28] VITALS (9 sets, daily range): BP systolic 100–113; BP diastolic 45–62; PULSE 68–86; RESP 16–18; TEMP 36.4; O2SAT 95–100
--- NOTE | 2024-09-28 10:27 | DVHDS2 ---
Discharge Summary Date of Admission Sep 24, 2024 at 21:54 Date of Discharge: Sep 28, 2024 Labs/Diagnostic Data: Laboratory Results Test 09/27/24 05:45 09/25/24 09:00 09/25/24 00:10 09/24/24 20:50 Sodium Level 138 mmol/L (136-145) Potassium Level 4.9 mmol/L (3.5-5.1) Chloride Level 102 mmol/L (98-107) Carbon Dioxide Level 29 mmol/L (20-31) Anion Gap 7 (5-15) Blood Urea Nitrogen 24 mg/dL (9-23) Creatinine 1.24 mg/dL (0.700-1.30) Glomerular Filtration Rate Calc 57 mL/min (>90) BUN/Creatinine Ratio 19.4 (10.0-20.0) Serum Glucose 75 mg/dL (74-106) Calcium Level 9.0 mg/dL (8.7-10.4) White Blood Count 9.4 10^3/uL (4.4-10.8) Red Blood Count 3.01 10^6/uL (4.5-5.90) Hemoglobin 10.7 g/dL (13.5-17.5) Hematocrit 31.7 % (41.0-53.0) Mean Corpuscular Volume 105.3 fL (80.0-100.0) Mean Corpuscular Hemoglobin 35.4 pg (28.0-32.0) Mean Corpuscular Hemoglobin Concent 33.6 g/dL (32.0-36.0) Red Cell Distribution Width 15.2 % (11.8-14.3) Platelet Count 235 10^3/uL (140-450) Mean Platelet Volume 7.1 fL (6.9-10.8) Neutrophils (%) (Auto) 84.6 % (37.0-80.0) Lymphocytes (%) (Auto) 7.6 % (10.0-50.0) Monocytes (%) (Auto) 6.7 % (0.0-12.0) Eosinophils (%) (Auto) 0.5 % (0.0-7.0) Basophils (%) (Auto) 0.6 % (0.0-2.0) Neutrophils # (Auto) 8.0 10 ^3/uL (1.6-8.6) Lymphocytes # (Auto) 0.7 10 ^3/uL (0.4-5.4) Monocytes # (Auto) 0.6 10 ^3/uL (0-1.3) Eosinophils # (Auto) 0 10 ^3/uL (0-0.8) Basophils # (Auto) 0.1 10 ^3/uL (0-0.2) Nucleated Red Blood Cells 0.0 % Total Bilirubin 0.7 mg/dL (0.2-1.0) Direct Bilirubin 0.3 mg/dL (<0.3) Aspartate Amino Transferase (AST) 35 U/L (13-40) Alanine Aminotransferase (ALT) 30 U/L (7-40) Alkaline Phosphatase 360 U/L (46-116) Total Protein 5.9 g/dL (5.7-8.2) Albumin 3.4 g/dL (3.2-4.8) Vitamin B12 Level 861 pg/mL (211-911) Vitamin D 25-Hydroxy 100.1 ng/mL (30.0-100) Folic Acid 41.25 ng/mL (>5.38) Urine Color Yellow (Yellow) Urine Clarity Turbid (Clear) Urine pH 8.0 (5.0-9.0) Urine Specific [place] 1.018 (1.001-1.035) Urine Protein 1+ (Negative) Urine Ketones Negative (Negative) Urine Blood Negative /uL (Negative) Urine Nitrite Negative (Negative) Urine Bilirubin Negative (Negative) Urine Urobilinogen Normal mg/dL (Negative) Urine Leukocyte Esterase Negative /uL (Negative) Urine RBC 1 /hpf (0 - 3) Urine Microscopic WBC 1 /HPF (0-3) Urine Squamous Epithelial Cells None seen /hpf (<5) Urine Amorphous Crystals Few /hpf (None Seen) Urine Bacteria Few /hpf (None Seen) Urine Glucose Normal mg/dL (Normal) Troponin I High Sensitivity 17 ng/L (</=54) Test 09/24/24 17:40 D-Dimer, Quantitative 0.63 mg/L FEU (0.0-0.49) B-Type Natriuretic Peptide 431.36 pg/mL (0-100) Other Laboratory Tests 09/27/24 05:45 09/25/24 09:00 Brief Hx & Hospital Course: see dictated note Condition at Discharge: Guarded Final Diagnosis/Problems List chf Discharge Disposition: Home with Health Services Discharge Instruct/Medications Diet: Cardiac 2g Na,low cholest Activity: No Restrictions, As Tolerated Follow Up/Referral: fu wi pcp in 1 wk Medications: resume home meds Scheduled Empagliflozin (Jardiance), 10 MG PO DAILY Furosemide (Lasix), 40 MG PO DAILY Hydroxychloroquine Sulfate (Hydroxychloroquine Sulfat), 200 MG PO DAILY Metoprolol Succinate (Metoprolol Succinate Er), 1 TAB PO DAILY Rivaroxaban (Xarelto), 1 TAB PO QPM Spironolactone (Aldactone), 1 TAB PO DAILY Tamsulosin Hcl (Flomax), 0.4 MG PO DAILY, (Reported) Zolpidem Tartrate (Ambien), 1 TAB PO QPM, (Reported) Scheduled PRN Albuterol Sulfate (Ventolin Mdi), 90 MCG IN QID PRN Epinephrine (Anaphylaxis) (Auvi-Q), 0.1 MG IJ O PRN Hydrocodone-Acetaminophen (Hydrocodone Bitartrate/AC 5-325 mg), 1 TAB PO Q6HPRN PRN Discharge Statement: "Patient was advised to return to the ER or call 911 if any headaches, dizziness, shortness of breath, chest pain, abdominal pain, bleeding, fevers, or worsening of medical condition. Patient was counseled about treatment plan, medications, possible side effects, patientverbalized understanding. All questions were answered to the best of my ability. This discharge took greater then 30 minutes in planning, reviewing documentation, counseling the patient, and discussing with other team members." ASSESSMENT ASSESSMENT Assessment chf Date of Service: Sep 28, 2024 Billing Provider: JESSICA VILLARREAL MD Common Visit Codes: [id number] DISCH DAY >30min JESSICA VILLARREAL MD Sep 28, 2024 10:27
--- NOTE | 2024-09-28 10:42 | DVHDS ---
DATE OF DISCHARGE: 09/28/2024 HISTORY OF PRESENT ILLNESS: The patient is an 84-year-old gentleman who was admitted with history of worsening shortness of breath and has history of congestive heart failure, atrial fibrillation, rheumatoid arthritis, COPD. HOSPITAL COURSE: The patient had a chest x-ray that showed evidence of bilateral infiltrates. The patient was diuresed with intravenous Lasix. The patient's BNP was 431. The patient's creatinine was 1.5. The patient will now be discharged home to resume his home medications and follow up with his primary in 1 week. He will have home health for physical therapy and a home health date. FINAL DIAGNOSES: * Acute on chronic systolic heart failure. * History of fall. * Atrial fibrillation with secondary hypercoagulable state. * COPD. * Rheumatoid arthritis. * Anemia. * BPH. * Severe mitral regurgitation and tricuspid regurgitation. * DNR status. * Acute renal failure, questionable vasomotor nephropathy. Time spent in discharge planning and review of plan with the patient, social service and nursing was 39 minutes. MD FRANK Finch/FABIO TID: [id number] RECEIPT: [id number]
== END 2024-09-28 14:45 | disposition home health service (06) | DRG 291 ==
LOC: EDBD 17:21 → ER 17:21 → OVERFLOW 21:54 → ER 21:56 → TELE-CENTR 21:56
PROVIDERS: ADMIT Internal Medicine; ATTEND Internal Medicine
DX: I50.23 Acute on chronic systolic (congestive) heart failure (principal); J18.9 Pneumonia, unspecified organism; N17.0 Acute kidney failure with tubular necrosis; J96.01 Acute respiratory failure with hypoxia; J44.0 Chronic obstructive pulmonary disease with (acute) lower respiratory infection; I24.9 Acute ischemic heart disease, unspecified; D68.69 Other thrombophilia; Z66 Do not resuscitate; Z51.5 Encounter for palliative care; D64.9 Anemia, unspecified; I08.1 Rheumatic disorders of both mitral and tricuspid valves; I71.40 Abdominal aortic aneurysm, without rupture, unspecified; M06.8A Other specified rheumatoid arthritis, other specified site; N40.0 Benign prostatic hyperplasia without lower urinary tract symptoms; R29.6 Repeated falls; I48.91 Unspecified atrial fibrillation; Z88.2 Allergy status to sulfonamides; Z87.11 Personal history of peptic ulcer disease; Z86.711 Personal history of pulmonary embolism; Z79.899 Other long term (current) drug therapy; Z91.81 History of falling
CPT/HCPCS: 36415; 71045; 80048; 80053; 80076; 81001; 82306; 82607; 82746; 83880; 84484; 85025; 85379; 86850; 86900; 86901; 93005; 94640; 97110; 97116; 97163; 97530; 99291; G0378

== ENCOUNTER 2024-10-11 18:29 | Inpatient (IN) | payer OTHER, MEDICARE ==
[~2024-10-11] VITALS: Ht 180.3 cm; Wt 48.9 kg
[2024-10-11] MEDS: ALBUTEROL SULF 2.5 MG/0.5ML(0.5%) NEB SOLN NEB ONE (19:01)
[2024-10-11] MEDS: IPRATROPIUM BROM 0.5 MG/2.5ML INH SOL NEB ONE (19:01)
--- NOTE | 2024-10-11 19:10 | DVH ---
CHEST RADIOGRAPH Indication: sob Technique: Single frontal view of the chest was obtained Comparison: XY CHEST PORTABLE on DOS: 09/24/24, XY CHEST PORTABLE on DOS: 09/11/24, XY CHEST PORTABLE on DOS: 08/25/24 FINDINGS: Lines and Tubes: None Lungs: Slightly improving patchy airspace disease right lower lobe. Unimproved Patchy airspace diseas e left lower lobe. Pleura: No effusion. No pneumothorax. Cardiomediastinal contours: Unremarkable Bones: No acute osseous abnormality. IMPRESSION: 1. Slightly improving airspace disease right lower lobe. 2. No significant improvement Patchy airspace disease LEFT lower lobe..
--- NOTE | 2024-10-11 19:13 | ED.PDOC ---
SOB-HPI HPI Comments 84 year old male presents to the ED with a chief complaint of shortness of breath onset today (10/11/24). Patient is a poor historian. Patient states he began experiencing shortness of breath earlier today, called [place] office and was recommended to come to ED. He is currently experiencing shortness of breath with chest tightness. Upon ED arrival patient's O2 sat was 79% on 2L, placed on 6L O2 improved to 95-99%. Patient was discharged from [facility] on 09/28/24, was admitted for shortness of breath. PMHx a-fib, arthritis, CHF, COPD, PE. No other associated symptoms, modifiers, recent injuries or sick contacts present at this time. Chief Complaint: Shortness of Breath Time Seen by MD: 06:35 Primary Care Provider: [place] Reviewed notes: Medications, Allergies Information Source: Patient Mode of Arrival: Ambulatory Severity: Moderate Timing: Days Duration: Since onset Context: At Rest PE Risk Factors: None History of: COPD, DVT/PE Prehospital treatment: None Modifying Factors: Nothing Associated Signs and Symptoms: Chest Pain Quality: Tightness Radiation: No Radiation Past Medical History PAST MEDICAL HISTORY: AFIB, Arthritis, CHF, COPD, PE Surgical History: Hernia Repair, Tonsillectomy Family History Family History: Reviewed,noncontributory to illness Social History Smoker: Non-Smoker Alcohol: Denies ETOH Use Drugs: Denies Drug Use Lives In: Home Constitutional: denies: chills, diaphoresis, fatigue, fever, malaise, sweats, weakness, others EENTM: denies: blurred vision, double vision, ear bleeding, ear discharge, ear drainage, ear pain, ear ringing, eye pain, eye redness, hearing loss, mouth pain, mouth swelling, nasal discharge, nose bleeding, nose congestion, nose pain, photophobia, tearing, throat pain, throat swelling, voice changes, others Respiratory: reports: shortness of breath; denies: cough, hemoptysis, orthopnea, SOB at rest, SOB with excertion, stridor, wheezing, others Cardiovascular: denies: chest pain, dizzy spells, diaphoresis, Dyspnea on exe rtion, edema, irregular heart beat, left arm pain, lightheadedness, palpitations, PND, syncope, others Gastrointestinal: denies: abdomen distended, abdominal pain, blood streaked bowels, constipated, diarrhea, dysphagia, difficulty swallowing, hematemesis, melena, nausea, poor appetite, poor fluid intake, rectal bleeding, rectal pain, vomiting, others Genitourinary: denies: burning, dysuria, flank pain, frequency, hematuria, incontinence, penile discharge, penile sore, pain, testicle pain, testicle swelling, urgency, others Neurological: denies: dizziness, fainting, headache, left sided numbness, left sided weakness, numbness, paresthesia, pre-existing deficit, right sided numbness, right sided weakness, seizure, speech problems, tingling, tremors, weakness, others Musculoskeletal: denies: back pain, gout, joint pain, joint swelling, muscle pain, muscle stiffness, neck pain, others Integumetry: denies: bruises, change in color, change in hair/nails, dryness, laceration, lesions, lumps, rash, wounds, others Allergic/Immunocompromised: denies: Difficulty Healing, Frequent Infections, Hives, Itching, others Hematologic/Lymphatic: denies: anemia, blood clots, easy bleeding, easy bruising, swollen glands, others Endocrine: denies: excessive hunger, excessive sweating, excessive thirst, excessive urination, flushing, intolerance to cold, intolerance to heat, unexplained weight gain, unexplained weight loss, others Psychiatric: denies: anxiety, bipolar disorder, depression, hopeless, panic disorder, schizophrenia, sleepless, suicidal, others All Other Systems: Reviewed and Negative Physical Exam General Appearance: Normal HEENT: Normal ENT Inspection, Pharynx Normal, TMs Normal Neck: Full Range of Motion, Non-Tender, Normal, Normal Inspection Respiratory: Chest Non-Tender, Other (tachypneic) Cardiovascular: No Edema, No JVD, No Murmur, No Gallop, Tachycardia Breast Exam: Deferred Gastrointestinal: No Organomegaly, Non Tender, No Pulsatile Mass, Normal Bowel Sounds, Soft Genitalia: Deferred Pelvic: Deferred Rectal: Deferred Extremities: No calf tenderness, Normal capillary refill, Normal inspection, Normal range of motion, Non-tender, No pedal edema Musculoskeletal : Apperance: Normal Neurologic: Alert, sawdust drier II-XII nml as Tested, No Motor Deficits, Normal Affect, Normal Mood, No Sensory Deficits Cerebellar Function: Normal Reflexes: Normal Skin: Dry, Normal Color, Warm Lymphatic: No Adenopathy Was a procedure done? Was a procedure done?: No Differential Dx Differential Diagnosis: Asthma, CHF, COPD, Hyponatremia, Pneumonia X-Ray, Labs, Meds, VS Vital Signs Date Time Temp Pulse Resp B/P (MAP) Pulse Ox O2 Delivery O2 Flow Rate FiO2 10/11/24 21:00 79 21 116/57 (76) 100 10/11/24 20:00 79 10/11/24 19:38 22 98 Nasal Cannula* 3 32 10/11/24 19:30 97.2 89 25 126/55 (78) 96 97.2 10/11/24 19:01 22 99 Nasal Cannula* 6 44 10/11/24 18:42 22 79 Nasal Cannula* 2 28 10/11/24 18:42 98.2 98 22 125/83 (97) 79 98.2 10/11/24 18:37 97 Lab Test 10/11/24 21:12 10/11/24 19:54 10/11/24 19:07 Range/Units POC Glucose 88 70-106 mg/dl Troponin I High Sensitivity 15 18 </=54 ng/L White Blood Count 11.0 H 4.4-10.8 10^3/uL Red Blood Count 3.81 L 4.5-5.90 10^6/uL Hemoglobin 13.2 L 13.5-17.5 g/dL Hematocrit 39.3 L 41.0-53.0 % Mean Corpuscular Volume 103.1 H 80.0-100.0 fL Mean Corpuscular Hemoglobin 34.7 H 28.0-32.0 pg Mean Corpuscular Hemoglobin Concent 33.7 32.0-36.0 g/dL Red Cell Distribution Width 14.5 H 11.8-14.3 % Platelet Count 212 140-450 10^3/uL Mean Platelet Volume 7.8 6.9-10.8 fL Neutrophils (%) (Auto) 84.7 H 37.0-80.0 % Lymphocytes (%) (Auto) 7.4 L 10.0-50.0 % Monocytes (%) (Auto) 6.6 0.0-12.0 % Eosinophils (%) (Auto) 0.7 0.0-7.0 % Basophils (%) (Auto) 0.6 0.0-2.0 % Neutrophils # (Auto) 9.3 H 1.6-8.6 10 ^3/uL Lymphocytes # (Auto) 0.8 0.4-5.4 10 ^3/uL Monocytes # (Auto) 0.7 0-1.3 10 ^3/uL Eosinophils # (Auto) 0.1 0-0.8 10 ^3/uL Basophils # (Auto) 0.1 0-0.2 10 ^3/uL Nucleated Red Blood Cells 0.0 % Sodium Level 138 136-145 mmol/L Potassium Level 5.9 *H 3.5-5.1 mmol/L Chloride Level 100 98-107 mmol/L Carbon Dioxide Level 30 20-31 mmol/L Anion Gap 8 5-15 Blood Urea Nitrogen 23 9-23 mg/dL Creatinine 1.28 0.700-1.30 mg/dL Glomerular Filtration Rate Calc 55 >90 mL/min BUN/Creatinine Ratio 18.0 10.0-20.0 Serum Glucose 98 74-106 mg/dL Lactic Acid Level 1.7 0.4-2.0 mmol/L Calcium Level 9.2 8.7-10.4 mg/dL B-Type Natriuretic Peptide 521.29 0-100 pg/mL Current Medications Medications (Trade) Dose Ordered Sig/Louie Route Start Time Stop Time Status Last Admin Albuterol (Ventolin Medneb) 5 mg ONCE ONCE NEB 10/11/24 18:45 10/11/24 18:46 DC 10/11/24 19:01 Ipratropium [place] (Atrovent Medneb) 0.5 mg ONCE ONCE NEB 10/11/24 18:45 10/11/24 18:46 DC 10/11/24 19:01 Acetaminophen (Ofirmev) 1,000 mg ONCE ONCE IV 10/11/24 20:30 10/11/24 20:31 DC 10/11/24 20:41 Sodium Bicarbonate 100 ml ONCE ONCE IV 10/11/24 20:45 10/11/24 20:46 DC 10/11/24 21:15 Insulin Human Regular (InsuLIN R) 10 units ONCE ONCE IV 10/11/24 20:45 10/11/24 20:46 DC 10/11/24 21:15 Dextrose 50 ml ONCE ONCE IV 10/11/24 20:45 10/11/24 20:46 DC 10/11/24 21:14 Calcium Gluconate/ Sodium Chloride 50 ml @ 600 mls/hr Q5M IV 10/11/24 21:00 10/11/24 21:09 DC 10/11/24 21:18 [place] [id number] Ph: [phone] DIAGNOSTIC IMAGING Diagnostic Imaging Report : [id number] Signed PATIENT: CORONA ZEPEDA ACCT: [id number] UNIT: [id number] : 1940 LOC: ER ROOM / BED: / AGE / SEX: 84 / M ADM STATUS: REG ER SERVICE 42 ORDERING PHYSICIAN: RACHELL SHARMA MD PROCEDURE(s): CXRP - CHEST PORTABLE REASON: sob ORDER NUMBER(s): [id number], ACCESSION NUMBER(s): [id number] CHEST RADIOGRAPH Indication: sob Technique: Single frontal view of the chest was obtained Comparison: XY CHEST PORTABLE on DOS: 09/24/24, XY CHEST PORTABLE on DOS: 09/11/24, XY CHEST PORTABLE on DOS: 08/25/24 FINDINGS: Lines and Tubes: None Lungs: Slightly improving patchy airspace disease right lower lobe. Unimproved Patchy airspace disease left lower lobe. Pleura: No effusion. No pneumothorax. Cardiomediastinal contours: Unremarkable Bones: No acute osseous abnormality. IMPRESSION: 1. Slightly improving airspace disease right lower lobe. 2. No significant improvement Patchy airspace disease LEFT lower lobe.. ATED BY: ADAMS VILLAFUERTE Jr., DO DICTATED DATE/TIME: 10/11/241906 SIGNED BY: ADASM VILLAFUERTE Jr., DO SIGNED DATE/TIME: 10/11/241906 CC: Time of 1ST Reevaluation: 07:05 Reevaluation 1ST: Unchanged Patient Education/Counseling: Diagnosis, Treatment, Prognosis Family Education/Counseling: No Family Present Additional Information Previous visits reviewed: 09/28/24 The following tests were ordered, and results were reviewed by me: EKG-x3, TROP- x3, XY CHEST, BNP. BMP, CBC, LA W/ REFLEX, BLOOD CULTURE I reviewed and agreed with the following test results read by other providers: GUILLERMO CHEST, I discussed treatment and results with medical personnel and: patient Comprehensive systems review obtained and negative except for what is stated in the HPI. SEPSIS Sepsis Screen Date sepsis recognized/suspect: Oct 11, 2024 Time Sepsis recognized/suspect: 1841 Recent Procedure: No On Antibiotic Therapy: No Respiratory Rate >20: Yes Heart Rate >90: Yes Temp<36 C (96.8 F) or >38.3 C: No SBP <90 or MAP <65 mmHG: No New Acute Mental Status Change: No Is the patient on CPAP, BIPAP,: No Physician Orders Electrocardigram (10/11/24 18:32) Electrocardigram (10/11/24 19:32) Electrocardigram (10/11/24 21:32) Chest Portable (10/11/24 18:43) Blood Culture (10/11/24 18:43) Vital Signs Date Time Temp Pulse Resp B/P (MAP) Pulse Ox O2 Delivery O2 Flow Rate FiO2 10/11/24 21:00 79 21 116/57 (76) 100 10/11/24 20:00 79 10/11/24 19:38 22 98 Nasal Cannula* 3 32 10/11/24 19:30 97.2 89 25 126/55 (78) 96 97.2 10/11/24 19:01 22 99 Nasal Cannula* 6 44 10/11/24 18:42 22 79 Nasal Cannula* 2 28 10/11/24 18:42 98.2 98 22 125/83 (97) 79 98.2 10/11/24 18:37 97 Laboratory Tests Test 10/11/24 19:07 Lactic Acid Level 1.7 mmol/L (0.4-2.0) White Blood Count 11.0 10^3/uL (4.4-10.8) H Medications Medications Dose Ordered Sig/Louie Route Start Time Stop Time Status Last Admin Dose Admin Acetaminophen 1,000 mg ONCE ONCE IV 10/11/24 20:30 10/11/24 20:31 DC 10/11/24 20:41 Albuterol 5 mg ONCE ONCE NEB 10/11/24 18:45 10/11/24 18:46 DC 10/11/24 19:01 Calcium Gluconate/ Sodium Chloride 50 ml @ 600 mls/hr Q5M IV 10/11/24 21:00 10/11/24 21:09 DC 10/11/24 21:18 Dextrose 50 ml ONCE ONCE IV 10/11/24 20:45 10/11/24 20:46 DC 10/11/24 21:14 Insulin Human Regular 10 units ONCE ONCE IV 10/11/24 20:45 10/11/24 20:46 DC 10/11/24 21:15 Ipratropium [place] 0.5 mg ONCE ONCE NEB 10/11/24 18:45 10/11/24 18:46 DC 10/11/24 19:01 Sodium Bicarbonate 100 ml ONCE ONCE IV 10/11/24 20:45 10/11/24 20:46 DC 10/11/24 21:15 Departure 1 Departure Time of Disposition: 05:58 (Patient with a acute on chronic respiratory failure. Patient possible pneumonia. We will admit patient for further workup. Patient is clinically volume overload with likely the patient full fluid bolus) Impression: Primary Impression: Acute and chronic respiratory failure Additional Impression: Pneumonia Qualified Codes: J18.9 - Pneumonia, unspecified organism Disposition: ADMITTED INPATIENT Admit to: Med Surg Condition: Serious Critical Care Note Critical Care Time?: Yes Critical care comment: Acute hypoxia Authorized and Performed by: Rachell Sharma MD Total critical care time: Approximately 44 minutes Due to a high probability of clinically significant, life threatening deterioration, the patient required my highest level of preparedness to intervene emergently and I personally spent this critical care time directly and personally managing the patient. This critical care time included obtaining a history; examining the patient; pulse oximetry; ordering and review of studies; arranging urgent treatment with development of a management plan; evaluation of patient's response to treatment; frequent reassessment; and, discussions with other providers. This critical care time was performed to assess and manage the high probability of imminent, life-threatening deterioration that could result in multi-organ failure. It was exclusive of separately billable procedures and treating other patients and teaching time. Please see my other sections and the rest of the note for further information on patient assessment and treatment. Stability Stability form required: No Heart Score Heart Score: Heart Score Response (Comments) Value History Slightly Suspicious 0 EKG Normal 0 Age >65 2 Risk Factors >3 or Hx ASHD 2 Troponin >3 x's Normal limit 2 Total 6 I personally scribed for RACHELL SHARMA MD ([email or web address]) on 10/11/24 at 19:13. Electronically submitted by Mai Askew ([email or web address]). I personally scribed for RACHELL SHARMA MD ([email or web address]) on 10/11/24 at 19:40. Electronically submitted by Mai Askew ([email or web address]). RACHELL SHARMA MD Oct 11, 2024 19:13
[2024-10-11 19:18] LABS: Hematocrit 39.3 % (41.0-53.0); Hemoglobin 13.2 g/dL (13.5-17.5); Mean Corpuscular Hemoglobin 34.7 pg (28.0-32.0); Mean Corpuscular Volume 103.1 fL (80.0-100.0); Nucleated Red Blood Cells % 0.0 %
[2024-10-11 19:28] LABS: Chloride 100 mmol/L (98-107); Sodium 138 mmol/L (136-145)
[2024-10-11 19:29] LABS: Anion Gap 8 (5-15); Calcium 9.2 mg/dL (8.7-10.4); Carbon Dioxide 30 mmol/L (20-31)
[2024-10-11 19:34] LABS: Glucose 98 mg/dL (74-106)
[2024-10-11 19:35] LABS: BUN/Creatinine Ratio 18.0 (10.0-20.0)
[2024-10-11 19:38] VITALS: RESP 22; O2SAT 98
[2024-10-11 19:43] LABS: Blood Urea Nitrogen 23 mg/dL (9-23)
[2024-10-11 19:45] LABS: Potassium 5.9 mmol/L (3.5-5.1)
[2024-10-11] MEDS: ACETAMINOPHEN IV 1000 MG/100ML (10MG/ML) IV ONE (20:41)
[2024-10-11] MEDS ORDERED: CALCIUM GLUC 1,000mg/50ml-NS 50 ML IV SCH (20:45)
[2024-10-11] MEDS: CALCIUM GLUC 1,000mg/50ml-NS 50 ML IV SCH (21:13)
[2024-10-11] MEDS: DEXTROSE (50%) 50ML SYRG IV ONE (21:14)
[2024-10-11] MEDS ORDERED: MORPHINE SULFATE INJ 2 MG/ml SYRG IV PRN (21:15)
[2024-10-11] MEDS ORDERED: ALBUTEROL SULF 2.5 MG/0.5ML(0.5%) NEB SOLN NEB PRN (21:15)
[2024-10-11] MEDS: InsuLIN REG 1unit/0.01ml Soln (100units/ml) IV ONE (21:15)
[2024-10-11] MEDS: SODIUM BICARB 8.4% 50Meq/50ml SYR Vial IV ONE (21:15)
[2024-10-11] MEDS ORDERED: NITROGLYCERIN 0.4 MG SL TAB SL PRN (21:15)
[2024-10-11] MEDS ORDERED: ONDANSETRON HCL 4 MG/2 ML VIAL IV PRN (21:15)
[2024-10-11] MEDS: FUROSEMIDE 20 MG/2 ML VIAL IV ONE (21:15)
[2024-10-11 21:25] VITALS: O2SAT 98
[2024-10-11 21:29] VITALS: BP 126/55; PULSE 86; RESP 25; TEMP 97.2; O2SAT 98
[2024-10-11 22:11] VITALS: RESP 16; O2SAT 98
[2024-10-11 23:21] LABS: COVID19 ANTIGEN SOFIA FIA NEGATIVE (NEGATIVE)
[2024-10-12] VITALS (14 sets, daily range): BP systolic 110–129; BP diastolic 57–85; PULSE 67–103; RESP 12–20; TEMP 97.4–98.3; O2SAT 93–100
--- NOTE | 2024-10-12 00:58 | DVHHP2 ---
History of Present Illness Reason for Visit: Shortness for breath History of Present Illness 84-year-old male presents for evaluation of shortness for breath. Patient endorses a one day history of worsening shortness for breath with chest tightness. He also reports having a productive cough. No fever or chills. No other acute complaints reported. Past Medical History COPD, AFib, CHF, P, arthritis Past Surgical History Tonsillectomy and hernia repair Family History Noncontributory Smoke: No ALCOHOL: none Drugs: None Lives: with Family Review of Systems Review of Systems Review of systems are currently negative otherwise addressed in HPI. Allergies: Coded Allergies: Sulfa Antibiotics (Verified Allergy, Severe, 05/08/24) Sulfabenzamide (Verified Allergy, Intermediate, 05/08/24) Sulfacetamide (Verified Allergy, Intermediate, 05/08/24) Sulfathiazole (Verified Allergy, Intermediate, 05/08/24) Sacubitril (Unverified Allergy, Unknown, SOB Weakness , 08/21/24) Per pt report Valsartan (Unverified Allergy, Unknown, SOB Weakness , 08/21/24) Per pt report Metoprolol (Verified Adverse Reaction, Severe, 07/12/24) "don't feel very good" per patient Sitagliptin (Verified Adverse Reaction, Severe, 07/12/24) Pt states it made him "feel not very good" Medications Current Medications Medications Dose Ordered Sig/Louie Route Start Time Stop Time Status Last Admin Dose Admin Albuterol 2.5 mg Q6HPRN PRN NEB 10/11/24 21:15 Empaglifozin 10 mg DAILY PO 10/12/24 10:00 Azithromycin 250 ml @ 125 mls/hr DAILY IV 10/12/24 10:00 UNV Furosemide 20 mg DAILY IV 10/12/24 10:00 Rivaroxaban 20 mg DAILY PO 10/12/24 10:00 Spironolactone 25 mg DAILY PO 10/12/24 10:00 UNV Tamsulosin HCl 0.4 mg QPM PO 10/12/24 18:00 Ondansetron HCl 4 mg Q4HP PRN IV 10/11/24 21:15 Acetaminophen 650 mg Q6HP PRN PO 10/11/24 21:15 Nitroglycerin 0.4 mg Q5MINP PRN SL 10/11/24 21:15 Morphine Sulfate 2 mg Q30M PRN IV 10/11/24 21:15 Metoprolol Succinate 25 mg DAILY PO 10/12/24 10:00 UNV Exam Vital Signs Vital Signs Date Time Temp Pulse Resp B/P (MAP) Pulse Ox O2 Delivery O2 Flow Rate FiO2 10/11/24 21:29 97.2 86 25 126/55 98 3.0 97.2 10/11/24 21:25 Nasal Cannula* 32 Exam Gen: 84-year-old male in mild distress Skin: Warm, dry, normal color and texture, no rash. HEENT: Normocephalic atraumatic, mucous membranes moist and pink. Neck: Cervical and supraclavicular nodes normal without enlargement, trachea is midline, thyroid gland is normal without masses. Pulmonary: Diminished breath sounds bilaterally Cardiac: Regular rate and rhythm. No murmur Abdomen: Soft, nontender, nondistended, bowel sounds present all 4 quadrants, no guarding, no rigidity, no organomegaly. Extremities: No cyanosis, clubbing, no edema Neuro: Cranial nerves II through XII grossly intact, normal affect and speech, no focal motor deficits. Labs/Xrays ORDERING PHYSICIAN: RACHELL GAINES MD PROCEDURE(s): CXRP - CHEST PORTABLE REASON: sob ORDER NUMBER(s): [id number], ACCESSION NUMBER(s): [id number] CHEST RADIOGRAPH Indication: sob Technique: Single frontal view of the chest was obtained Comparison: XY CHEST PORTABLE on DOS: 09/24/24, XY CHEST PORTABLE on DOS: 09/11/24, XY CHEST PORTABLE on DOS: 08/25/24 FINDINGS: Lines and Tubes: None Lungs: Slightly improving patchy airspace disease right lower lobe. Unimproved Patchy airspace disease left lower lobe. Pleura: No effusion. No pneumothorax. Cardiomediastinal contours: Unremarkable Bones: No acute osseous abnormality. IMPRESSION: 1. Slightly improving airspace disease right lower lobe. 2. No significant improvement Patchy airspace disease LEFT lower lobe.. Labs Test 10/11/24 22:08 10/11/24 22:06 10/11/24 21:12 10/11/24 19:07 Range/Units Troponin I High Sensitivity 15 </=54 ng/L Influenza Type A Antigen Negative Negative Influenza Type B Antigen Negative Negative SARS-CoV-2 Antigen (Rapid) Negative NEGATIVE POC Glucose 88 70-106 mg/dl White Blood Count 11.0 H 4.4-10.8 10^3/uL Red Blood Count 3.81 L 4.5-5.90 10^6/uL Hemoglobin 13.2 L 13.5-17.5 g/dL Hematocrit 39.3 L 41.0-53.0 % Mean Corpuscular Volume 103.1 H 80.0-100.0 fL Mean Corpuscular Hemoglobin 34.7 H 28.0-32.0 pg Mean Corpuscular Hemoglobin Concent 33.7 32.0-36.0 g/dL Red Cell Distribution Width 14.5 H 11.8-14.3 % Platelet Count 212 140-450 10^3/uL Mean Platelet Volume 7.8 6.9-10.8 fL Neutrophils (%) (Auto) 84.7 H 37.0-80.0 % Lymphocytes (%) (Auto) 7.4 L 10.0-50.0 % Monocytes (%) (Auto) 6.6 0.0-12.0 % Eosinophils (%) (Auto) 0.7 0.0-7.0 % Basophils (%) (Auto) 0.6 0.0-2.0 % Neutrophils # (Auto) 9.3 H 1.6-8.6 10 ^3/uL Lymphocytes # (Auto) 0.8 0.4-5.4 10 ^3/uL Monocytes # (Auto) 0.7 0-1.3 10 ^3/uL Eosinophils # (Auto) 0.1 0-0.8 10 ^3/uL Basophils # (Auto) 0.1 0-0.2 10 ^3/uL Nucleated Red Blood Cells 0.0 % Sodium Level 138 136-145 mmol/L Potassium Level 5.9 *H 3.5-5.1 mmol/L Chloride Level 100 98-107 mmol/L Carbon Dioxide Level 30 20-31 mmol/L Anion Gap 8 5-15 Blood Urea Nitrogen 23 9-23 mg/dL Creatinine 1.28 0.700-1.30 mg/dL Glomerular Filtration Rate Calc 55 >90 mL/min BUN/Creatinine Ratio 18.0 10.0-20.0 Serum Glucose 98 74-106 mg/dL Lactic Acid Level 1.7 0.4-2.0 mmol/L Calcium Level 9.2 8.7-10.4 mg/dL B-Type Natriuretic Peptide 521.29 0-100 pg/mL SEPSIS Sepsis Screen Date sepsis recognized/suspect: Oct 11, 2024 Time Sepsis recognized/suspect: 1929 Recent Procedure: No On Antibiotic Therapy: No Respiratory Rate >20: No Heart Rate >90: No Temp<36 C (96.8 F) or >38.3 C: No SBP <90 or MAP <65 mmHG: No New Acute Mental Status Change: No Is the patient on CPAP, BIPAP,: No Physician Orders Electrocardigram (10/11/24 18:32) Electrocardigram (10/11/24 19:32) Electrocardigram (10/11/24 21:32) Chest Portable (10/11/24 18:43) Blood Culture (10/11/24 18:43) Albuterol Medneb (Ventolin Medneb) (10/11/24 21:15) Empagliflozin (Jardiance) (10/12/24 10:00) Azithromycin 500mg/ 250ml (Zithromax 50 (10/12/24 10:00) Furosemide Injection (Lasix Injection) (10/12/24 10:00) Rivaroxaban Tablet (Xarelto Tablet) (10/12/24 10:00) Spironolactone (Aldactone) (10/12/24 10:00) Tamsulosin Hydrochloride (Flomax) (10/12/24 18:00) Basic Metabolic Panel (10/12/24 04:00) Admit (10/11/24 21:14) Ondansetron Hcl (Zofran) (10/11/24 21:15) Complete Blood Count (10/12/24 04:00) Cardiac Diet-2gna,Lofat,Lochol (10/12/24 Breakfast) Condition: Fair (10/11/24 21:14) Acetaminophen Tablet (Tylenol Tablet) (10/11/24 21:15) Bedrest With Bathroom Privileg (10/11/24 21:14) Nitroglycerin Sublingual (Ntrostat Subli (10/11/24 21:15) Morphine Sulfate Injection (10/11/24 21:15) Stat Ekg For Chest Pain (10/11/24 21:14) Notify Md Of Changes From Base (10/11/24 21:14) Technology Adoption Manager For 24 Hours (10/11/24 21:14) Emergency Dysrhythmia Protocol (10/11/24 21:14) Rhythm Strips Once Every Shift (10/11/24 21:14) Oxygen By Nasal Cannula (10/11/24 21:14) Metoprolol Xl Succinate (Toprol Xl) (10/12/24 10:00) Mrsa Screen (10/11/24 22:23) Ceftriaxone Ivpb Rocephin (10/12/24 09:00) Vital Signs Date Time Temp Pulse Resp B/P (MAP) Pulse Ox O2 Delivery O2 Flow Rate FiO2 10/11/24 21:29 97.2 86 25 126/55 98 3.0 97.2 10/11/24 21:25 98 Nasal Cannula* 3 32 10/11/24 21:25 98 Nasal Cannula 3.0 10/11/24 21:15 166/66 10/11/24 21:00 79 21 116/57 (76) 100 10/11/24 20:00 79 10/11/24 19:38 22 98 Nasal Cannula* 3 32 10/11/24 19:30 97.2 89 25 126/55 (78) 96 97.2 10/11/24 19:01 22 99 Nasal Cannula* 6 44 10/11/24 18:42 22 79 Nasal Cannula* 2 28 10/11/24 18:42 98.2 98 22 125/83 (97) 79 98.2 10/11/24 18:37 97 Laboratory Tests Test 10/11/24 19:07 Lactic Acid Level 1.7 mmol/L (0.4-2.0) White Blood Count 11.0 10^3/uL (4.4-10.8) H Medications Medications Dose Ordered Sig/Louie Route Start Time Stop Time Status Last Admin Dose Admin Acetaminophen 1,000 mg ONCE ONCE IV 10/11/24 20:30 10/11/24 20:31 DC 10/11/24 20:41 1,000 MG Albuterol 5 mg ONCE ONCE NEB 10/11/24 18:45 10/11/24 18:46 DC 10/11/24 19:01 5 MG Calcium Gluconate/ Sodium Chloride 50 ml @ 600 mls/hr Q5M IV 10/11/24 21:00 10/11/24 21:09 DC 10/11/24 21:18 600 MLS/HR Dextrose 50 ml ONCE ONCE IV 10/11/24 20:45 10/11/24 20:46 DC 10/11/24 21:14 50 ML Furosemide 20 mg ONCE ONCE IV 10/11/24 21:15 10/11/24 22:05 DC 10/11/24 21:15 20 MG Insulin Human Regular 10 units ONCE ONCE IV 10/11/24 20:45 10/11/24 20:46 DC 10/11/24 21:15 10 UNITS Ipratropium [place] 0.5 mg ONCE ONCE NEB 10/11/24 18:45 10/11/24 18:46 DC 10/11/24 19:01 0.5 MG Sodium Bicarbonate 100 ml ONCE ONCE IV 10/11/24 20:45 10/11/24 20:46 DC 10/11/24 21:15 100 ML Assessment/Plan Assessment/Plan Assessment Acute on chronic respiratory failure Possible pneumonia Congestive heart failure COPD Plan Admit the patient to telemetry to the hospitalist Rocephin/azithromycin Med nebs Resume home medications Continue treatment per orders. Plan discussed with: Patient My Orders Orders - JESSICA CARCAMO AGACNP Procedure Category Date Status Time Albuterol Medneb PHA 10/11/24 In Process (Ventolin Medneb) 21:15 Empagliflozin PHA 10/12/24 In Process (Jardiance) 10:00 Azithromycin 500mg/ PHA 10/12/24 Pending 250ml (Zithromax 50 10:00 Furosemide Injection PHA 10/12/24 In Process (Lasix Injection) 10:00 Rivaroxaban Tablet PHA 10/12/24 In Process (Xarelto Tablet) 10:00 Spironolactone PHA 10/12/24 Pending (Aldactone) 10:00 Tamsulosin PHA 10/12/24 In Process Hydrochloride (Flomax) 18:00 Basic Metabolic Panel LAB 10/12/24 Logged 04:00 Admit ADMIT 10/11/24 Transmitted 21:14 Ondansetron Hcl PHA 10/11/24 In Process (Zofran) 21:15 Complete Blood Count LAB 10/12/24 Logged 04:00 Cardiac DIET 10/12/24 Transmitted Diet-2gna,Lofat,Lochol Breakfast Condition: Fair [facility] 10/11/24 In Process 21:14 Acetaminophen Tablet PHA 10/11/24 In Process (Tylenol Tablet) 21:15 Bedrest With Bathroom [facility] 10/11/24 In Process Privileg 21:14 Nitroglycerin [facility] 10/11/24 In Process Sublingual (Ntrostat 21:15 Morphine Sulfate [facility] 10/11/24 In Process Injection 21:15 Stat Ekg For Chest [facility] 10/11/24 In Process Pain 21:14 Notify Md Of Changes [facility] 10/11/24 In Process From Base 21:14 Technology Adoption Manager For [facility] 10/11/24 In Process 24 Hours 21:14 Emergency Dysrhythmia [facility] 10/11/24 In Process Protocol 21:14 Rhythm Strips Once [facility] 10/11/24 In Process Every Shift 21:14 Oxygen By Nasal RT 10/11/24 Transmitted Cannula 21:14 Metoprolol Xl PHA 10/12/24 Pending Succinate (Toprol Xl) 10:00 Mrsa Screen [facility] 10/11/24 Logged 22:23 Ceftriaxone Ivpb PHA 10/12/24 Verified Rocephin 09:00 Date of Service: Oct 11, 2024 Billing Provider: JESSICA CARCAMO Common Visit Codes: [id number] INP/OBS CARE (HIGH) JESSICA CARCAMO Oct 12, 2024 00:58
[2024-10-12] MEDS: HYDROcodone-ACET 5/325MG TAB PO PRN (03:28)
[2024-10-12 05:36] LABS: Chloride 101 mmol/L (98-107); Potassium 4.3 mmol/L (3.5-5.1); Sodium 140 mmol/L (136-145)
[2024-10-12 05:37] LABS: Anion Gap 6 (5-15)
[2024-10-12 05:38] LABS: Calcium 9.0 mg/dL (8.7-10.4); Carbon Dioxide 33 mmol/L (20-31)
[2024-10-12 05:42] LABS: BUN/Creatinine Ratio 16.9 (10.0-20.0); Blood Urea Nitrogen 23 mg/dL (9-23); Glucose 92 mg/dL (74-106); Hematocrit 33.2 % (41.0-53.0); Hemoglobin 11.3 g/dL (13.5-17.5); Mean Corpuscular Hemoglobin 34.9 pg (28.0-32.0); Mean Corpuscular Volume 102.0 fL (80.0-100.0); Nucleated Red Blood Cells % 0.0 %
--- NOTE | 2024-10-12 08:01 | ECG ---
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
[2024-10-12] MEDS ORDERED: SPIRONOLACTONE 25 MG TAB PO SCH (10:00)
[2024-10-12] MEDS ORDERED: AZITHROMYCIN 500MG/ 250ML 250 ML IV SCH (10:00)
[2024-10-12] MEDS ORDERED: METOPROLOL SUCCINATE XL 50 MG TAB PO SCH ×2 (10:00)
[2024-10-12] MEDS: RIVAROXABAN 20 MG TAB PO SCH (10:00)
[2024-10-12] MEDS: cefTRIAXone 1GM/50ML D5W 50 ML IV SCH (10:39)
[2024-10-12] MEDS: EMPAGLIFLOZIN 10 MG TAB PO SCH (10:39)
[2024-10-12] MEDS: FUROSEMIDE 20 MG/2 ML VIAL IV SCH (10:42)
--- NOTE | 2024-10-12 11:15 | DVHPN2 ---
Progress Note Date Seen: Oct 12, 2024 Medical Necessity Reason Pt with a Central, PICC or Fol: No Subjective Patient reports: No new complaints Review of Systems: HEENT:Normal, CVS:Normal, RESPIRATORY:Normal, GI:Normal, :Normal, MSK:Normal, NEURO:Normal Objective vital signs Vital Sign Date Time Temp Pulse Resp B/P (MAP) Pulse Ox O2 Delivery O2 Flow Rate FiO2 10/12/24 10:42 111/44 10/12/24 09:28 97.7 94 19 96 97.7 10/12/24 06:38 Room Air 0.0 10/12/24 06:38 21 Total Intake and Output 10/11/24 10/11/24 10/12/24 15:00 23:00 07:00 Intake Total 100 ml Balance 100 ml medications Current Medications Medications Dose Ordered Sig/Louie Route Start Time Stop Time Status Last Admin Dose Admin Albuterol 2.5 mg Q6HPRN PRN NEB 10/11/24 21:15 Empaglifozin 10 mg DAILY PO 10/12/24 10:00 10/12/24 10:39 10 MG Azithromycin 250 ml @ 125 mls/hr DAILY IV 10/12/24 10:00 Hold Furosemide 20 mg DAILY IV 10/12/24 10:00 10/12/24 10:42 20 MG Rivaroxaban 20 mg DAILY PO 10/12/24 10:00 Spironolactone 25 mg DAILY PO 10/12/24 10:00 Hold Tamsulosin HCl 0.4 mg QPM PO 10/12/24 18:00 Ondansetron HCl 4 mg Q4HP PRN IV 10/11/24 21:15 Acetaminophen 650 mg Q6HP PRN PO 10/11/24 21:15 Metoprolol Succinate 25 mg DAILY PO 10/12/24 10:00 Hold Ceftriaxone Sodium 50 ml @ 100 mls/hr DAILY@09 IV 10/12/24 09:00 10/12/24 10:39 100 MLS/HR Acetaminophen/ Hydrocodone Bitart 1 tab Q6HPRN PRN PO 10/12/24 03:15 10/12/24 10:40 1 TAB Examination: GENERAL:Normal, HEENT:Normal, NECK:Normal, LUNGS:Normal, LUNGS:Abnormal (on oxygen), CVS:Normal, ABDOMEN:Normal, MSK:Normal, SKIN:Normal, NEURO:Normal, :Normal laboratory and microbiology Laboratory Tests 10/12/24 04:57 Test 10/12/24 04:57 Range/Units Serum Glucose 92 74-106 mg/dL Problem List/Assessment/Plan Problem List/Assessment/Plan * Acute on chronic systolic heart failure. * History of fall: off eliquis. * Atrial fibrillation with secondary hypercoagulable state- off eliquis. * COPD: bronchodilators * Rheumatoid arthritis. * Anemia. * BPH. * Severe mitral regurgitation and tricuspid regurgitation. * DNR status. * hyperkalemia: improved, dc aldactone * ckd stage 3 poor prognosis advance care planning- dnr- time spent 18 mins Plan discussed with: Patient Date of Service: Oct 12, 2024 Billing Provider: JESSICA VILLARREAL MD Common Visit Codes: [id number] INP/OBS CARE(HIGH) Secondary Visit Codes: [id number] CARE PLAN 30 MINUTES JESSICA VILLARREAL MD Oct 12, 2024 11:15
[2024-10-12] MEDS: LEVALBUTEROL HCL 1.25 MG/3 ML NEB NEB SCH (11:40)
[2024-10-12] MEDS: IPRATROPIUM BROM 0.5 MG/2.5ML INH SOL NEB SCH (11:40)
[2024-10-12] MEDS: DOCUSATE SOD 100 MG CAP PO PRN (13:26)
[2024-10-12] MEDS: ACETAMINOPHEN 325 MG TAB PO PRN (16:10)
[2024-10-12 16:26] LABS: Urine Protein, UAD Negative (Negative)
[2024-10-12] MEDS: TAMSULOSIN HYDROCHLORIDE 0.4 MG CAP PO SCH (17:59)
[2024-10-12] MEDS: DOXYCYCLINE 100 MG TAB/CAP PO SCH (21:55)
[2024-10-13] VITALS (11 sets, daily range): BP systolic 105–131; BP diastolic 44–78; PULSE 54–115; RESP 19–22; TEMP 36.4; O2SAT 94–100
[2024-10-13 07:24] LABS: Anion Gap 7 (5-15); Calcium 10.0 mg/dL (8.7-10.4); Potassium 4.6 mmol/L (3.5-5.1)
[2024-10-13 07:26] LABS: Carbon Dioxide 32 mmol/L (20-31); Chloride 96 mmol/L (98-107); Sodium 135 mmol/L (136-145)
[2024-10-13 07:31] LABS: BUN/Creatinine Ratio 18.4 (10.0-20.0); Glucose 79 mg/dL (74-106)
[2024-10-13 07:32] LABS: Blood Urea Nitrogen 25 mg/dL (9-23)
--- NOTE | 2024-10-13 12:47 | DVHPN2 ---
Reviewed: Care Plan, H&P, Labs, Medications, Previous Orders, Radiology Changes from previous H/P or p: No Changes General: Per HPI Objective Vitals Vital Signs Date Time Temp Pulse Resp B/P (MAP) Pulse Ox O2 Delivery O2 Flow Rate FiO2 10/13/24 12:39 97.5 105 20 105/71 (82) 96 97.5 10/13/24 11:35 Room Air* 0 21 Intake/Output Intake and Output 10/13/24 07:00 Intake Total 775 ml Output Total 1100 ml Balance -325 ml Intake Oral 725 ml IV Total 50 ml Output Urine Total 1100 ml Medications Current Medications Medications Dose Ordered Sig/Louie Route Start Time Stop Time Status Last Admin Dose Admin Albuterol 2.5 mg Q6HPRN PRN NEB 10/11/24 21:15 Empaglifozin 10 mg DAILY PO 10/12/24 10:00 10/12/24 10:39 10 MG Furosemide 20 mg DAILY IV 10/12/24 10:00 10/12/24 10:42 20 MG Tamsulosin HCl 0.4 mg QPM PO 10/12/24 18:00 10/12/24 17:59 0.4 MG Ondansetron HCl 4 mg Q4HP PRN IV 10/11/24 21:15 Acetaminophen 650 mg Q6HP PRN PO 10/11/24 21:15 10/12/24 23:37 650 MG Acetaminophen/ Hydrocodone Bitart 1 tab Q6HPRN PRN PO 10/12/24 03:15 10/13/24 09:51 1 TAB Hydroxychloroquine Sulfate 200 mg DAILY PO 10/13/24 10:00 10/13/24 09:50 200 MG Ipratropium [place] 0.5 mg Q6HWA NEB 10/12/24 12:00 10/13/24 11:35 0.5 MG Levalbuterol HCl 0.625 mg Q6HR NEB 10/12/24 12:00 10/13/24 11:35 0.625 MG Doxycycline Monohydrate 100 mg Q12HR PO 10/12/24 22:00 10/13/24 09:50 100 MG Docusate Sodium 100 mg BIDPRN PRN PO 10/12/24 13:15 10/13/24 04:49 100 MG Laboratory Results Laboratory Tests 10/12/24 04:57 10/13/24 05:50 Chemistry Test 10/13/24 05:50 Calcium Level 10.0 mg/dL (8.7-10.4) Urinalysis Test 10/12/24 13:00 Urine Color Colorless (Yellow) Urine Clarity Clear (Clear) Urine pH 7.0 (5.0-9.0) Urine Specific [place] 1.007 (1.001-1.035) Urine Protein Negative (Negative) Urine Ketones Negative (Negative) Urine Blood Negative /uL (Negative) Urine Nitrite Negative (Negative) Urine Bilirubin Negative (Negative) Urine Urobilinogen Normal mg/dL (Negative) Urine Leukocyte Esterase Negative /uL (Negative) Urine RBC <1 /hpf (0 - 3) Urine Microscopic WBC 1 /HPF (0-3) Urine Squamous Epithelial Cells None seen /hpf (<5) Urine Bacteria None seen /hpf (None Seen) Urine Glucose 3+ mg/dL (Normal) H Microbiology Microbiology Date/Time Source Procedure Growth Status 10/11/24 22:25 Nose MRSA Screen - Final Complete 10/11/24 19:07 Blood Blood Culture - Preliminary NO GROWTH AFTER 24 HOURS OF INCUBATION. Resulted Labs and/or images reviewed: Labs reviewed by me, Image(s) reviewed by me Assessment/Plan Assessment/Plan Acute on chronic systolic heart failure. * History of fall: off eliquis. * Atrial fibrillation with secondary hypercoagulable state- off eliquis. * COPD: bronchodilators * Rheumatoid arthritis. * Anemia. * BPH. * Severe mitral regurgitation and tricuspid regurgitation. * DNR status. * hyperkalemia: improved, dc aldactone * ckd stage 3 poor prognosis advance care planning- dnr- time spent 18 mins Plan discussed with: Patient Date of Service: Oct 13, 2024 Billing Provider: KRANTHI LAU DO Common Visit Codes: [id number] INP/OBS CARE(HIGH) KRANTHI LAU DO Oct 13, 2024 12:47
--- NOTE | 2024-10-16 09:52 | DVHDS2 ---
Discharge Summary Date of Admission Oct 11, 2024 at 21:14 Date of Discharge: Oct 13, 2024 Labs/Diagnostic Data: Laboratory Results Test 10/13/24 05:50 10/12/24 13:00 10/12/24 04:57 10/11/24 22:08 Sodium Level 135 mmol/L (136-145) Potassium Level 4.6 mmol/L (3.5-5.1) Chloride Level 96 mmol/L (98-107) Carbon Dioxide Level 32 mmol/L (20-31) Anion Gap 7 (5-15) Blood Urea Nitrogen 25 mg/dL (9-23) Creatinine 1.36 mg/dL (0.700-1.30) Glomerular Filtration Rate Calc 51 mL/min (>90) BUN/Creatinine Ratio 18.4 (10.0-20.0) Serum Glucose 79 mg/dL (74-106) Calcium Level 10.0 mg/dL (8.7-10.4) Urine Color Colorless (Yellow) Urine Clarity Clear (Clear) Urine pH 7.0 (5.0-9.0) Urine Specific [place] 1.007 (1.001-1.035) Urine Protein Negative (Negative) Urine Ketones Negative (Negative) Urine Blood Negative /uL (Negative) Urine Nitrite Negative (Negative) Urine Bilirubin Negative (Negative) Urine Urobilinogen Normal mg/dL (Negative) Urine Leukocyte Esterase Negative /uL (Negative) Urine RBC <1 /hpf (0 - 3) Urine Microscopic WBC 1 /HPF (0-3) Urine Squamous Epithelial Cells None seen /hpf (<5) Urine Bacteria None seen /hpf (None Seen) Urine Glucose 3+ mg/dL (Normal) White Blood Count 9.2 10^3/uL (4.4-10.8) Red Blood Count 3.25 10^6/uL (4.5-5.90) Hemoglobin 11.3 g/dL (13.5-17.5) Hematocrit 33.2 % (41.0-53.0) Mean Corpuscular Volume 102.0 fL (80.0-100.0) Mean Corpuscular Hemoglobin 34.9 pg (28.0-32.0) Mean Corpuscular Hemoglobin Concent 34.2 g/dL (32.0-36.0) Red Cell Distribution Width 14.1 % (11.8-14.3) Platelet Count 185 10^3/uL (140-450) Mean Platelet Volume 7.8 fL (6.9-10.8) Neutrophils (%) (Auto) 84.1 % (37.0-80.0) Lymphocytes (%) (Auto) 8.7 % (10.0-50.0) Monocytes (%) (Auto) 6.5 % (0.0-12.0) Eosinophils (%) (Auto) 0.3 % (0.0-7.0) Basophils (%) (Auto) 0.4 % (0.0-2.0) Neutrophils # (Auto) 7.7 10 ^3/uL (1.6-8.6) Lymphocytes # (Auto) 0.8 10 ^3/uL (0.4-5.4) Monocytes # (Auto) 0.6 10 ^3/uL (0-1.3) Eosinophils # (Auto) 0 10 ^3/uL (0-0.8) Basophils # (Auto) 0 10 ^3/uL (0-0.2) Nucleated Red Blood Cells 0.0 % Troponin I High Sensitivity 15 ng/L (</=54) Test 10/11/24 22:06 10/11/24 21:12 10/11/24 19:07 Influenza Type A Antigen Negative (Negative) Influenza Type B Antigen Negative (Negative) SARS-CoV-2 Antigen (Rapid) Negative (NEGATIVE) POC Glucose 88 mg/dl (70-106) Lactic Acid Level 1.7 mmol/L (0.4-2.0) B-Type Natriuretic Peptide 521.29 pg/mL (0-100) Other Laboratory Tests 10/13/24 05:50 10/12/24 04:57 Brief Hx & Hospital Course: Acute on chronic systolic heart failure. * History of fall: off eliquis. * Atrial fibrillation with secondary hypercoagulable state- off eliquis. * COPD: bronchodilators * Rheumatoid arthritis. * Anemia. * BPH. * Severe mitral regurgitation and tricuspid regurgitation. * DNR status. * hyperkalemia: improved, dc aldactone * ckd stage 3 Condition at Discharge: Fair Final Diagnosis/Problems List see above Discharge Disposition: Home Discharge Instruct/Medications Diet: Cardiac 2g Na,low cholest Activity: No Restrictions, As Tolerated Scheduled Empagliflozin (Jardiance), 10 MG PO DAILY Furosemide (Lasix), 40 MG PO DAILY Hydroxychloroquine Sulfate (Hydroxychloroquine Sulfat), 200 MG PO DAILY Metoprolol Succinate (Metoprolol Succinate Er), 1 TAB PO DAILY Rivaroxaban (Xarelto), 1 TAB PO QPM Spironolactone (Aldactone), 1 TAB PO DAILY Tamsulosin Hcl (Flomax), 0.4 MG PO DAILY, (Reported) Zolpidem Tartrate (Ambien), 1 TAB PO QPM, (Reported) Scheduled PRN Albuterol Sulfate (Ventolin Mdi), 90 MCG IN QID PRN Epinephrine (Anaphylaxis) (Auvi-Q), 0.1 MG IJ O PRN Hydrocodone-Acetaminophen (Hydrocodone Bitartrate/AC 5-325 mg), 1 TAB PO Q6HPRN PRN Discharge Statement: "Patient was advised to return to the ER or call 911 if any headaches, dizziness, shortness of breath, chest pain, abdominal pain, bleeding, fevers, or worsening of medical condition. Patient was counseled about treatment plan, medications, possible side effects, patientverbalized understanding. All questions were answered to the best of my ability. This discharge took greater then 30 minutes in planning, reviewing documentation, counseling the patient, and discussing with other team members." ASSESSMENT ASSESSMENT Assessment Date of Service: Oct 13, 2024 Billing Provider: KRANTHI LAU DO Common Visit Codes: [id number]-XOM/OBS DISCH DAY >30min KRANTHI LAU DO Oct 16, 2024 09:52
== END 2024-10-13 15:50 | disposition home or self-care (01) | DRG 291 ==
LOC: ER 18:29 → OVERFLOW 21:14 → TELE-WESTW 23:59
PROVIDERS: ADMIT Internal Medicine; ATTEND Internal Medicine
DX: I50.23 Acute on chronic systolic (congestive) heart failure (principal); J96.20 Acute and chronic respiratory failure, unspecified whether with hypoxia or hypercapnia; J44.0 Chronic obstructive pulmonary disease with (acute) lower respiratory infection; D68.69 Other thrombophilia; Z66 Do not resuscitate; Z20.822 Contact with and (suspected) exposure to COVID-19; D64.9 Anemia, unspecified; N18.30 Chronic kidney disease, stage 3 unspecified; M06.8A Other specified rheumatoid arthritis, other specified site; I08.1 Rheumatic disorders of both mitral and tricuspid valves; N40.0 Benign prostatic hyperplasia without lower urinary tract symptoms; I48.91 Unspecified atrial fibrillation; E87.5 Hyperkalemia; Z91.81 History of falling; Z88.2 Allergy status to sulfonamides
CPT/HCPCS: 36415; 71045; 80048; 81001; 82962; 83605; 83880; 84484; 85025; 87040; 87081; 87426; 87804; 93005; 94640; 96365; 96375; 97163; G0378; J0131; J1815

== ENCOUNTER 2024-10-26 11:57 | Inpatient (IN) | payer OTHER, MEDICARE ==
[~2024-10-26] VITALS: Ht 180.3 cm; Wt 1.4 kg
--- NOTE | 2024-10-26 12:15 | ED.PDOC ---
SOB-HPI HPI Comments 84 y/o M, BIBA, with PMHx of AFib, COPD, CHF, and arthritis presents to the ED for CC of shortness of breath. EMS reports, patient is coming from home where he c/o shortness of breath since, being DC from [facility] on 10/13/24. Patient relays, that he was admitted to [facility] on 10/11/24 for Dx: Acute on Chronic Respiratory failure and Pneumonia; endorses taking prescribed antibiotics however, symptoms have not improved. Patient denies fever, chills, nasal congestion, or chest pain. No other associated symptoms, modifiers, recent injuries or sick contacts present at this time. Chief Complaint: Shortness of Breath Time Seen by MD: 12:10 Primary Care Provider: ADAM Reviewed notes: Nurses Notes, Student Development Dean Notes, Medications, Allergies Information Source: Patient, Emergency Med Personnel Mode of Arrival: EMS Severity: Moderate Timing: Days Duration: Since onset Context: At Rest PE Risk Factors: None History of: COPD, CHF Prehospital treatment: None Modifying Factors: Nothing Associated Signs and Symptoms: None Past Medical History PAST MEDICAL HISTORY: AFIB, Arthritis, CHF, COPD, PE Surgical History: Hernia Repair, Tonsillectomy Family History Family History: Reviewed,noncontributory to illness Social History Smoker: Non-Smoker Alcohol: Denies ETOH Use Drugs: Denies Drug Use Lives In: Home Constitutional: denies: chills, diaphoresis, fatigue, fever, malaise, sweats, weakness, others EENTM: denies: blurred vision, double vision, ear bleeding, ear discharge, ear drainage, ear pain, ear ringing, eye pain, eye redness, hearing loss, mouth pain, mouth swelling, nasal discharge, nose bleeding, nose congestion, nose pain, photophobia, tearing, throat pain, throat swelling, voice changes, others Respiratory: reports: shortness of breath; denies: cough, hemoptysis, orthopnea, SOB at rest, SOB with excertion, stridor, wheezing, others Cardiovascular: denies: chest pain, dizzy spells, diaphoresis, Dyspnea on exertion, edema, irregular heart beat, left arm pain, lightheadedness, palpitations, PND, syncope, others Gastrointestinal: denies: abdomen distended, abdominal pain, blood streaked bowels, constipated, diarrhea, dysphagia, difficulty swallowing, hematemesis, melena, nausea, poor appetite, poor fluid intake, rectal bleeding, rectal pain, vomiting, others Genitourinary: denies: burning, dysuria, flank pain, frequency, hematuria, incontinence, penile discharge, penile sore, pain, testicle pain, testicle swelling, urgency, others Neurological: denies: dizziness, fainting, headache, left sided numbness, left sided weakness, numbness, paresthesia, pre-existing deficit, right sided numbness, right sided weakness, seizure, speech problems, tingling, tremors, weakness, others Musculoskeletal: denies: back pain, gout, joint pain, joint swelling, muscle pain, muscle stiffness, neck pain, others Integumetry: denies: bruises, change in color, change in hair/nails, dryness, laceration, lesions, lumps, rash, wounds, others Allergic/Immunocompromised: denies: Difficulty Healing, Frequent Infections, Hives, Itching, others Hematologic/Lymphatic: denies: anemia, blood clots, easy bleeding, easy bruising, swollen glands, others Endocrine: denies: excessive hunger, excessive sweating, excessive thirst, excessive urination, flushing, intolerance to cold, intolerance to heat, unexplained weight gain, unexplained weight loss, others Psychiatric: denies: anxiety, bipolar disorder, depression, hopeless, panic disorder, schizophrenia, sleepless, suicidal, others All Other Systems: Reviewed and Negative Physical Exam General Appearance: Moderate Distress HEENT: Normal ENT Inspection, Pharynx Normal, TMs Normal Neck: Full Range of Motion, Non-Tender, Normal, Normal Inspection Respiratory: Other (Coarse breath sounds) Cardiovascular: No Edema, No JVD, No Murmur, No Gallop, Normal Peripheral Pulses, Regular Rate/Rhythm Breast Exam: Deferred Gastrointestinal: No Organomegaly, Non Tender, No Pulsatile Mass, Normal Bowel Sounds, Soft Genitalia: Deferred Pelvic: Deferred Rectal: Deferred Extremities: No calf tenderness, Normal capillary refill, Normal inspection, Normal range of motion, Non-tender, No pedal edema Musculoskeletal : Apperance: Normal Neurologic: Alert, investment strategist II-XII nml as Tested, No Motor Deficits, Normal Affect, Normal Mood, No Sensory Deficits Cerebellar Function: NOT DONE Reflexes: NOT DONE Skin: Dry, Normal Color, Warm Peripheral Pulses: 3+ Radial (R), 3+ Radial (L) Lymphatic: No Adenopathy Was a procedure done? Was a procedure done?: No Differential Dx Differential Diagnosis: Pneumonia, Sinusitis, Pharyngitis, URI X-Ray, Labs, Meds, VS Vital Signs Date Time Temp Pulse Resp B/P (MAP) Pulse Ox O2 Delivery O2 Flow Rate FiO2 10/26/24 17:12 101 20 121/72 (88) 99 10/26/24 17:12 101 20 99 Nasal Cannula* 2 28 10/26/24 15:02 110 20 110/84 (93) 98 10/26/24 15:02 110 20 96 Nasal Cannula* 1 24 10/26/24 12:06 90 10/26/24 12:03 19 97 Room Air* 0 21 10/26/24 12:03 99.2 88 19 117/71 97 99.2 Lab Test 10/26/24 15:53 10/26/24 14:47 10/26/24 13:50 Range/Units Urine Color Yellow Yellow Urine Clarity Clear Clear Urine pH 6.5 5.0-9.0 Urine Specific [place] 1.022 1.001-1.035 Urine Protein 1+ H Negative Urine Ketones Negative Negative Urine Blood Negative Negative /uL Urine Nitrite Negative Negative Urine Bilirubin Negative Negative Urine Urobilinogen Normal Negative mg/dL Urine Leukocyte Esterase Negative Negative /uL Urine RBC 4 0 - 3 /hpf Urine Microscopic WBC 1 0-3 /HPF Urine Squamous Epithelial Cells Few <5 /hpf Urine Bacteria None seen None Seen /hpf Urine Glucose Normal Normal mg/dL Troponin I High Sensitivity 19 21 </=54 ng/L White Blood Count 10.3 4.4-10.8 10^3/uL Red Blood Count 3.56 L 4.5-5.90 10^6/uL Hemoglobin 12.2 L 13.5-17.5 g/dL Hematocrit 36.4 L 41.0-53.0 % Mean Corpuscular Volume 102.0 H 80.0-100.0 fL Mean Corpuscular Hemoglobin 34.2 H 28.0-32.0 pg Mean Corpuscular Hemoglobin Concent 33.5 32.0-36.0 g/dL Red Cell Distribution Width 14.4 H 11.8-14.3 % Platelet Count 183 140-450 10^3/uL Mean Platelet Volume 7.9 6.9-10.8 fL Neutrophils (%) (Auto) 88.8 H 37.0-80.0 % Lymphocytes (%) (Auto) 6.1 L 10.0-50.0 % Monocytes (%) (Auto) 4.1 0.0-12.0 % Eosinophils (%) (Auto) 0.6 0.0-7.0 % Basophils (%) (Auto) 0.4 0.0-2.0 % Neutrophils # (Auto) 9.1 H 1.6-8.6 10 ^3/uL Lymphocytes # (Auto) 0.6 0.4-5.4 10 ^3/uL Monocytes # (Auto) 0.4 0-1.3 10 ^3/uL Eosinophils # (Auto) 0.1 0-0.8 10 ^3/uL Basophils # (Auto) 0 0-0.2 10 ^3/uL Nucleated Red Blood Cells 0.0 % Sodium Level 138 136-145 mmol/L Potassium Level 4.6 3.5-5.1 mmol/L Chloride Level 100 98-107 mmol/L Carbon Dioxide Level 32 H 20-31 mmol/L Anion Gap 6 5-15 Blood Urea Nitrogen 23 9-23 mg/dL Creatinine 1.18 0.700-1.30 mg/dL Glomerular Filtration Rate Calc 60 >90 mL/min BUN/Creatinine Ratio 19.5 10.0-20.0 Serum Glucose 103 74-106 mg/dL Calcium Level 8.7 8.7-10.4 mg/dL Current Medications Medications (Trade) Dose Ordered Sig/Louie Route Start Time Stop Time Status Last Admin Methylprednisolone Sodium Succinate (Solu Medrol) 125 mg ONCE ONCE IV 10/26/24 12:30 10/26/24 12:31 DC 10/26/24 12:40 Albuterol (Ventolin Medneb) 5 mg ONCE ONCE NEB 10/26/24 12:30 10/26/24 12:31 DC 10/26/24 12:40 Ipratropium [place] (Atrovent Medneb) 0.5 mg ONCE ONCE NEB 10/26/24 12:30 10/26/24 12:31 DC 10/26/24 12:40 Acetaminophen/ Hydrocodone Bitart ([place] 10/325MG Tab) 1 tab ONCE ONCE PO 10/26/24 14:45 10/26/24 14:46 DC 10/26/24 15:15 [facility] [id number] [facility] [address] Ph: [phone] DIAGNOSTIC IMAGING Diagnostic Imaging Report : [id number] Signed PATIENT: CORONA ZEPEDA ACCT: [id number] UNIT: [id number] : 1940 LOC: ER ROOM / BED: / AGE / SEX: 84 / M ADM STATUS: REG ER SERVICE 1223 ORDERING PHYSICIAN: ZULMA PATEL MD PROCEDURE(s): CXRP - CHEST PORTABLE REASON: sob ORDER NUMBER(s): [id number], ACCESSION NUMBER(s): [id number] EXAM: XY CHEST PORTABLE HISTORY: sob COMPARISON: XY CHEST PORTABLE on DOS: 10/11/24, XY CHEST PORTABLE on DOS: 09/24/24, XY CHEST PORTABLE on DOS: 09/11/24, XY CHEST PORTABLE on DOS: 08/25/24, XY CHEST PORTABLE on DOS: 08/20/24. For reasons unknown, CT scan of the chest dated 07/17/2024 was not made available in the PACS system for viewing. TECHNIQUE: Portable upright AP view of the chest was performed. FINDINGS: There is increased opacity in the left lung base. There is prominence of the interstitial markings in both lungs, increased. The heart is enlarged. The aortic arch is calcific. The central pulmonary arteries may be ectatic. There may be a retrocardiac hiatal hernia versus artifactual appearance. The bones are diffusely osteopenic. IMPRESSION: 1. Increased left basilar infiltrate and/or effusion. 2. Cardiomegaly with diffusely increased prominence of the interstitial markings suggestive of worsening CHF. 3. Atherosclerotic vascular disease and possible pulmonary arterial hypertension. ATED BY: REINA CHANDLER MD DICTATED DATE/TIME: 10/26/24 1250 SIGNED BY: REINA CHANDLER MD SIGNED DATE/TIME: 10/26/24 1250 CC: Patient alert. Complaining of shortness a breath. Patient was discharged from this hospital. Placed on oxygen. Chest x-ray reviewed pneumonia CHF. Reviewed his previous visit. Explained to the patient. Continue monitoring. Time of 1ST Reevaluation: 12:40 Reevaluation 1ST: Unchanged Patient Education/Counseling: Diagnosis, Treatment Family Education/Counseling: No Family Present SEPSIS Sepsis Screen Physician Orders Electrocardigram (10/26/24 12:14) Chest Portable (10/26/24 12:23) Troponin-I Hs (10/26/24 15:23) Vital Signs Date Time Temp Pulse Resp B/P (MAP) Pulse Ox O2 Delivery O2 Flow Rate FiO2 10/26/24 17:12 101 20 121/72 (88) 99 10/26/24 17:12 101 20 99 Nasal Cannula* 2 28 10/26/24 15:02 110 20 110/84 (93) 98 10/26/24 15:02 110 20 96 Nasal Cannula* 1 24 10/26/24 12:06 90 10/26/24 12:03 19 97 Room Air* 0 21 10/26/24 12:03 99.2 88 19 117/71 97 99.2 Laboratory Tests Test 10/26/24 13:50 White Blood Count 10.3 10^3/uL (4.4-10.8) Medications Medications Dose Ordered Sig/Louie Route Start Time Stop Time Status Last Admin Dose Admin Acetaminophen/ Hydrocodone Bitart 1 tab ONCE ONCE PO 10/26/24 14:45 10/26/24 14:46 DC 10/26/24 15:15 Albuterol 5 mg ONCE ONCE NEB 10/26/24 12:30 10/26/24 12:31 DC 10/26/24 12:40 Ipratropium [place] 0.5 mg ONCE ONCE NEB 10/26/24 12:30 10/26/24 12:31 DC 10/26/24 12:40 Methylprednisolone Sodium Succinate 125 mg ONCE ONCE IV 10/26/24 12:30 10/26/24 12:31 DC 10/26/24 12:40 Departure 1 Departure Time of Disposition: 17:18 Impression: Primary Impression: Acute CHF Qualified Codes: I50.41 - Acute combined systolic (congestive) and diastolic (congestive) heart failure Additional Impressions: CAP (community acquired pneumonia) Qualified Codes: J18.9 - Pneumonia, unspecified organism Acute and chronic respiratory failure Disposition: 09 ADMITTED INPATIENT Admit to: Med Surg Condition: Guarded Critical Care Note Critical Care Time?: Yes (90 min-critical care time only) Stability Stability form required: No Heart Score Heart Score: Heart Score Response (Comments) Value History Slightly Suspicious 0 EKG Normal 0 Age >65 2 Risk Factors >3 or Hx ASHD 2 Troponin Normal limit 0 Total 4 I personally scribed for ZULMA PATEL MD ([email or web address]) on 10/26/24 at 12:15. Electronically submitted by Brittany Baugh ([email or web address]). I personally scribed for ZULMA PATEL MD ([email or web address]) on 10/26/24 at 12:56. Electronically submitted by Brittany Baugh ([email or web address]). ZULMA PATEL MD Oct 26, 2024 12:15
[2024-10-26] MEDS: IPRATROPIUM BROM 0.5 MG/2.5ML INH SOL NEB ONE (12:40)
[2024-10-26] MEDS: methylPREDNISolone SOD SUCC 125 MG/2 ML VL IV ONE (12:40)
[2024-10-26] MEDS: ALBUTEROL SULF 2.5 MG/0.5ML(0.5%) NEB SOLN NEB ONE (12:40)
--- NOTE | 2024-10-26 12:52 | DVH ---
EXAM: XY CHEST PORTABLE HISTORY: sob COMPARISON: XY CHEST PORTABLE on DOS: 10/11/24, XY CHEST PORTABLE on DOS: 09/24/24, XY CHEST PORTABLE on DOS: 09/11/24, XY CHEST PORTABLE on DOS: 08/25/24, XY CHEST PORTABLE on DOS: 08/20/24. For reasons unkno wn, CT scan of the chest dated 07/17/2024 was not made available in the PACS system for viewing. TECHNIQUE: Portable upright AP view of the chest was performed. FINDINGS: There is increased opacity in the left lung base. There is prominence of the interstitial markings i n both lungs, increased. The heart is enlarged. The aortic arch is calcific. The central pulmonary arteries may be ectatic. There may be a retrocardiac hiatal hernia versus artifactual appearance. Th e bones are diffusely osteopenic. IMPRESSION: 1. Increased left basilar infiltrate and/or effusion. 2. Cardiomegaly with diffusely increased prominence of the interstitial markings suggestive of worsen ing CHF. 3. Atherosclerotic vascular disease and possible pulmonary arterial hypertension.
[2024-10-26 14:05] LABS: Hematocrit 36.4 % (41.0-53.0); Hemoglobin 12.2 g/dL (13.5-17.5); Mean Corpuscular Hemoglobin 34.2 pg (28.0-32.0); Mean Corpuscular Volume 102.0 fL (80.0-100.0); Nucleated Red Blood Cells % 0.0 %
[2024-10-26 14:11] LABS: Chloride 100 mmol/L (98-107); Potassium 4.6 mmol/L (3.5-5.1); Sodium 138 mmol/L (136-145)
[2024-10-26 14:12] LABS: Anion Gap 6 (5-15); Calcium 8.7 mg/dL (8.7-10.4)
[2024-10-26 14:13] LABS: Carbon Dioxide 32 mmol/L (20-31)
[2024-10-26 14:17] LABS: BUN/Creatinine Ratio 19.5 (10.0-20.0); Blood Urea Nitrogen 23 mg/dL (9-23); Glucose 103 mg/dL (74-106)
[2024-10-26 15:02] VITALS: PULSE 110; RESP 20; O2SAT 96
[2024-10-26] MEDS: HYDROcodone-ACET 10/325MG TAB PO ONE (15:15)
[2024-10-26 15:41] LABS: Urine Protein, UAD 1+ (Negative)
[2024-10-26 17:12] VITALS: PULSE 101; RESP 20; O2SAT 99
--- NOTE | 2024-10-26 18:29 | ECG ---
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
[2024-10-26 19:30] VITALS: PULSE 113; RESP 20; O2SAT 93
[2024-10-26] MEDS ORDERED: DOCUSATE SOD 100 MG CAP PO PRN (22:00)
[2024-10-26] MEDS: SODIUM CHLOR 0.9% PF (SALINE LOCK) 10ML VIAL/SYR IV SCH (22:00)
[2024-10-26] MEDS ORDERED: ONDANSETRON HCL 4 MG/2 ML VIAL IV PRN (22:00)
[2024-10-26] MEDS ORDERED: ACETAMINOPHEN 325 MG TAB PO PRN (22:00)
[2024-10-26] MEDS: CARVEDILOL 3.125 MG TAB PO SCH (22:58)
[2024-10-26] MEDS: HYDROcodone-ACET 5/325MG TAB PO PRN (22:58)
[2024-10-26] MEDS: methylPREDNISolone SOD SUCC 40 MG/ML VL IV SCH (22:59)
[2024-10-26] MEDS: FAMOTIDINE (10MG/ML) 2ML VL IV SCH (22:59)
[2024-10-26] MEDS: DOXYCYCLINE 100MG/100ML 100 ML IV SCH (23:19)
--- NOTE | 2024-10-26 23:36 | DVHHP2 ---
History of Present Illness Reason for Visit: Acute and chronic respiratory failure History of Present Illness The patient is a 86-year-old male with past medical history of AFib, COPD, CHF, arthritis, and PE who presented to [facility] ED with complaint of shortness of breaths. Patient was recently discharged from [facility] on October 13, 2024 for acute on chronic respiratory failure and pneumonia. Patient was seen and evaluated in the ED, laboratory data shows WBC 10.3, hemoglobin 12.2, hematocrit 36.4, platelets 183, sodium 138, potassium 4.6, BUN 23, creatinine 1.18, glucose 103, calcium 8.7, troponin 15, blood pressure 134/75, heart rate 108, temperature 97.5 F, O2 saturation 94% on oxygen. Chest x-ray revealing increased left basilar infiltrate and/or effusion; atherosclerotic vascular disease and possible pulmonary atrial hypertension. Patient was started on IV antibiotic regimen doxycycline, given IV Lasix, please see medication orders section in the computer. On my assessment, patient denied chest pain, no headache, no dizziness, currently on oxygen, no nausea, no vomiting, no fever, no chills. Patient was admitted for further evaluation and medical management. Past Medical History AFIB, Arthritis, CHF, COPD, PE Past Surgical History Hernia Repair, Tonsillectomy Family History Reviewed, noncontributory to the management of this case. Past Social History The patient lives at home, denies smoking, alcohol or illicit drugs abuse. Review of Systems Constitutional: Yes: Weakness; No: Fever, Chills, Sweats, Malaise, Other Eyes: No: Pain, Vision change, Conjunctivae inflammation, Eyelid inflammation, Other, Redness ENT: No: Ear pain, Ear discharge, Nose pain, Nose discharge, Nose congestion, Mouth pain, Mouth swelling, Throat pain, Throat swelling, Other Respiratory: Shortness of breath; No: Cough, Dry, SOB with excertion, Wheezing, Hemoptysis, Pleuritic Pain, Sputum, Wheezing, Other Cardiovascular: No: Chest Pain, Palpitations, Orthopnea, Paroxysmal Noc. Dyspnea, Edema, Lt Headedness, Other Gastrointestinal: No: Nausea, Vomiting, Abdominal Pain, Diarrhea, Constipation, Melena, Hematochezia, Other Genitourinary: No Dysuria, No Frequency, No Incontinence, No Hematuria, No Retention, No Other Musculoskeletal: No: other, neck pain, shoulder pain, arm pain, back pain, hand pain, leg pain, foot pain Skin: No: Rash, Lesions, Jaundice, Bruising, Other Neurological: No: Weakness, Numbness, Incoordination, Change in speech, Confusion, Seizures, Other Allergies: Coded Allergies: Sulfa Antibiotics (Verified Allergy, Severe, 05/08/24) Sulfabenzamide (Verified Allergy, Intermediate, 05/08/24) Sulfacetamide (Verified Allergy, Intermediate, 05/08/24) Sulfathiazole (Verified Allergy, Intermediate, 05/08/24) Sacubitril (Unverified Allergy, Unknown, SOB Weakness , 08/21/24) Per pt report Valsartan (Unverified Allergy, Unknown, SOB Weakness , 08/21/24) Per pt report Metoprolol (Verified Adverse Reaction, Severe, 07/12/24) "don't feel very good" per patient Sitagliptin (Verified Adverse Reaction, Severe, 07/12/24) Pt states it made him "feel not very good" Medications Current Medications Medications Dose Ordered Sig/Louie Route Start Time Stop Time Status Last Admin Dose Admin Levalbuterol HCl 0.625 mg Q6HR NEB 10/27/24 00:00 Carvedilol 3.125 mg Q12HR PO 10/26/24 22:00 10/26/24 22:58 3.125 MG Famotidine 20 mg DAILY IV 10/26/24 22:00 10/26/24 22:59 20 MG Methylprednisolone Sodium Succinate 40 mg Q8HR IV 10/26/24 22:00 10/26/24 22:59 40 MG Doxycycline Hyclate 100 ml @ 50 mls/hr Q12H IV 10/26/24 22:00 10/26/24 23:19 50 MLS/HR Rivaroxaban 20 mg QPM PO 10/27/24 18:00 Sodium Chloride 10 ml Q8HR IV 10/26/24 22:00 10/26/24 22:00 10 ML Acetaminophen/ Hydrocodone Bitart 1 tab Q4HP PRN PO 10/26/24 22:00 10/26/24 22:58 1 TAB Ondansetron HCl 4 mg Q4HP PRN IV 10/26/24 22:00 Docusate Sodium 100 mg BIDPRN PRN PO 10/26/24 22:00 Acetaminophen 650 mg Q6HP PRN PO 10/26/24 22:00 Exam Vital Signs Vital Signs Date Time Temp Pulse Resp B/P (MAP) Pulse Ox O2 Delivery O2 Flow Rate FiO2 10/26/24 22:58 106 122/66 10/26/24 19:30 97.5 20 93 97.5 10/26/24 19:30 Nasal Cannula* 2 28 General Appearance: Alert, Oriented X3, Cooperative, No acute distress HEENT: Atraumatic, PERRLA, EOMI, Mucous membr. moist/pink Respiratory: Normal air movement, Other (Diminished breath sounds) Cardiovascular: Regular rate, Normal S1, Normal S2, No murmurs Abdominal: Normal bowel sounds, Soft, No tenderness, No hepatospenomegaly, No masses Extremities: No clubbing, No cyanosis, No edema, Normal pulses, No tendern ess/swelling Skin: No rashes, No breakdown, No significant lesion Neuro: Normal speech, Normal tone, Sensation intact, Cranial nerves 3-12 NL, Reflexes 2+, Other (Generalized weakness) Psych/Mental Status: Mental status NL, Mood NL Labs/Xrays Labs Test 10/26/24 18:25 10/26/24 15:53 10/26/24 13:50 Range/Units Troponin I High Sensitivity 15 </=54 ng/L Urine Color Yellow Yellow Urine Clarity Clear Clear Urine pH 6.5 5.0-9.0 Urine Specific [place] 1.022 1.001-1.035 Urine Protein 1+ H Negative Urine Ketones Negative Negative Urine Blood Negative Negative /uL Urine Nitrite Negative Negative Urine Bilirubin Negative Negative Urine Urobilinogen Normal Negative mg/dL Urine Leukocyte Esterase Negative Negative /uL Urine RBC 4 0 - 3 /hpf Urine Microscopic WBC 1 0-3 /HPF Urine Squamous Epithelial Cells Few <5 /hpf Urine Bacteria None seen None Seen /hpf Urine Glucose Normal Normal mg/dL White Blood Count 10.3 4.4-10.8 10^3/uL Red Blood Count 3.56 L 4.5-5.90 10^6/uL Hemoglobin 12.2 L 13.5-17.5 g/dL Hematocrit 36.4 L 41.0-53.0 % Mean Corpuscular Volume 102.0 H 80.0-100.0 fL Mean Corpuscular Hemoglobin 34.2 H 28.0-32.0 pg Mean Corpuscular Hemoglobin Concent 33.5 32.0-36.0 g/dL Red Cell Distribution Width 14.4 H 11.8-14.3 % Platelet Count 183 140-450 10^3/uL Mean Platelet Volume 7.9 6.9-10.8 fL Neutrophils (%) (Auto) 88.8 H 37.0-80.0 % Lymphocytes (%) (Auto) 6.1 L 10.0-50.0 % Monocytes (%) (Auto) 4.1 0.0-12.0 % Eosinophils (%) (Auto) 0.6 0.0-7.0 % Basophils (%) (Auto) 0.4 0.0-2.0 % Neutrophils # (Auto) 9.1 H 1.6-8.6 10 ^3/uL Lymphocytes # (Auto) 0.6 0.4-5.4 10 ^3/uL Monocytes # (Auto) 0.4 0-1.3 10 ^3/uL Eosinophils # (Auto) 0.1 0-0.8 10 ^3/uL Basophils # (Auto) 0 0-0.2 10 ^3/uL Nucleated Red Blood Cells 0.0 % Sodium Level 138 136-145 mmol/L Potassium Level 4.6 3.5-5.1 mmol/L Chloride Level 100 98-107 mmol/L Carbon Dioxide Level 32 H 20-31 mmol/L Anion Gap 6 5-15 Blood Urea Nitrogen 23 9-23 mg/dL Creatinine 1.18 0.700-1.30 mg/dL Glomerular Filtration Rate Calc 60 >90 mL/min BUN/Creatinine Ratio 19.5 10.0-20.0 Serum Glucose 103 74-106 mg/dL Calcium Level 8.7 8.7-10.4 mg/dL B-Type Natriuretic Peptide 810.20 0-100 pg/mL PATIENT: CORONA ZEPEDA ACCT: [id number] UNIT: [id number] : 1940 LOC: ER ROOM / BED: / AGE / SEX: 84 / M ADM STATUS: REG ER SERVICE 1223 ORDERING PHYSICIAN: ZULMA PATEL MD PROCEDURE(s): CXRP - CHEST PORTABLE REASON: sob ORDER NUMBER(s): [id number], ACCESSION NUMBER(s): [id number] EXAM: XY CHEST PORTABLE HISTORY: sob COMPARISON: XY CHEST PORTABLE on DOS: 10/11/24, XY CHEST PORTABLE on DOS: 09/24/24, XY CHEST PORTABLE on DOS: 09/11/24, XY CHEST PORTABLE on DOS: 08/25/24, XY CHEST PORTABLE on DOS: 08/20/24. For reasons unknown, CT scan of the chest dated 07/17/2024 was not made available in the PACS system for viewing. TECHNIQUE: Portable upright AP view of the chest was performed. FINDINGS: There is increased opacity in the left lung base. There is prominence of the interstitial markings in both lungs, increased. The heart is enlarged. The aortic arch is calcific. The central pulmonary arteries may be ectatic. There may be a retrocardiac hiatal hernia versus artifactual appearance. The bones are diffusely osteopenic. IMPRESSION: 1. Increased left basilar infiltrate and/or effusion. 2. Cardiomegaly with diffusely increased prominence of the interstitial markings suggestive of worsening CHF. 3. Atherosclerotic vascular disease and possible pulmonary arterial hypertension. SEPSIS Sepsis Screen Date sepsis recognized/suspect: Oct 26, 2024 Time Sepsis recognized/suspect: 1502 Recent Procedure: No On Antibiotic Therapy: Yes Respiratory Rate >20: No Heart Rate >90: Yes Temp<36 C (96.8 F) or >38.3 C: No SBP <90 or MAP <65 mmHG: No New Acute Mental Status Change: No Is the patient on CPAP, BIPAP,: No Physician Orders Levalbuterol Hcl (Xopenex Medneb) (10/27/24 00:00) Carvedilol Tablet (Coreg Tablet) (10/26/24 22:00) Famotidine Injection (Pepcid Injection) (10/26/24 22:00) Methylprednisolone Sod Succ (Solu Medrol (10/26/24 22:00) Doxycycline 100mg/100ml (Vibramycin) (10/26/24 22:00) Rivaroxaban Tablet (Xarelto Tablet) (10/27/24 18:00) Allergies (10/26/24 21:58) Code Status (10/26/24 21:58) Sodium Chloride Lock (Saline Lock Ns) (10/26/24 22:00) Oxygen Per Hour (10/26/24 21:58) Hydrocodone-Acet 5/325mg Tab ([place] 5/32 (10/26/24 22:00) Ondansetron Hcl (Zofran) (10/26/24 22:00) Docusate Sodium Capsule (Colace Capsule) (10/26/24 22:00) Fall Risk Precautions In Place QSHIFT (10/26/24 21:58) Complete Blood Count (10/27/24 04:00) Comprehensive Metabolic Panel (10/27/24 04:00) Cardiac Diet-2gna,Lofat,Lochol (10/27/24 Breakfast) Condition: Serious (10/26/24 21:58) Acetaminophen Tablet (Tylenol Tablet) (10/26/24 22:00) Maintain Bed Rest (10/26/24 21:58) Sequential Compression Device (10/26/24 ) Admit (10/26/24 23:33) Nitroglycerin Sublingual (Ntrostat Subli (10/26/24 23:45) Morphine Sulfate Injection (10/26/24 23:45) Vital Signs Date Time Temp Pulse Resp B/P (MAP) Pulse Ox O2 Delivery O2 Flow Rate FiO2 10/26/24 22:58 106 122/66 10/26/24 20:00 112 10/26/24 19:30 97.5 109 20 134/75 (94) 93 97.5 10/26/24 19:30 113 20 93 Nasal Cannula* 2 28 10/26/24 18:00 109 39 135/73 (93) 97 10/26/24 17:12 101 20 121/72 (88) 99 10/26/24 17:12 102 10/26/24 17:12 101 20 99 Nasal Cannula* 2 28 Laboratory Tests Test 10/26/24 13:50 White Blood Count 10.3 10^3/uL (4.4-10.8) Medications Medications Dose Ordered Sig/Louie Route Start Time Stop Time Status Last Admin Dose Admin Acetaminophen/ Hydrocodone Bitart 1 tab ONCE ONCE PO 10/26/24 14:45 10/26/24 14:46 DC 10/26/24 15:15 1 TAB Acetaminophen/ Hydrocodone Bitart 1 tab Q4HP PRN PO 10/26/24 22:00 10/26/24 22:58 1 TAB Albuterol 5 mg ONCE ONCE NEB 10/26/24 12:30 10/26/24 12:31 DC 10/26/24 12:40 5 MG Carvedilol 3.125 mg Q12HR PO 10/26/24 22:00 10/26/24 22:58 3.125 MG Doxycycline Hyclate 100 ml @ 50 mls/hr Q12H IV 10/26/24 22:00 10/26/24 23:19 50 MLS/HR Famotidine 20 mg DAILY IV 10/26/24 22:00 10/26/24 22:59 20 MG Ipratropium [place] 0.5 mg ONCE ONCE NEB 10/26/24 12:30 10/26/24 12:31 DC 10/26/24 12:40 0.5 MG Methylprednisolone Sodium Succinate 40 mg Q8HR IV 10/26/24 22:00 10/26/24 22:59 40 MG Methylprednisolone Sodium Succinate 125 mg ONCE ONCE IV 10/26/24 12:30 10/26/24 12:31 DC 10/26/24 12:40 125 MG Sodium Chloride 10 ml Q8HR IV 10/26/24 22:00 10/26/24 22:00 10 ML Assessment/Plan Assessment/Plan Acute and chronic respiratory failure Pneumonia, unspecified organism COPD with acute exacerbation Generalized weakness Acute exacerbation of congestive heart failure Plan 1. Admit to telemetry unit 2. Breathing treatment 3. Pain control management 4. IV antibiotic management 5. Management of fluids and electrolytes 6. Consultation for hospitalist 7. Diagnostic test chest x-ray 8. DVT prophylaxis-on Xarelto 9. Repeat labs CBC, CMP in a.m. 10. Home medication reviewed and reconciled 11. Continue with current medical management 12. Treatment plan discussed with patient and RN. Patient verbalized understanding. Plan discussed with: Patient, Other (RN) My Orders Orders - GREGORY RAMIREZ DNP Procedure Category Date Status Time Levalbuterol Hcl PHA 10/27/24 In Process (Xopenex Medneb) 00:00 Carvedilol Tablet PHA 10/26/24 In Process (Coreg Tablet) 22:00 Famotidine Injection PHA 10/26/24 In Process (Pepcid Injection) 22:00 Methylprednisolone PHA 10/26/24 In Process Sod Succ (Solu Medrol 22:00 Doxycycline PHA 10/26/24 In Process 100mg/100ml 22:00 Rivaroxaban Tablet PHA 10/27/24 In Process (Xarelto Tablet) 18:00 Allergies CHEPE 10/26/24 In Process 21:58 Code Status CODE 10/26/24 Transmitted 21:58 Sodium Chloride Lock PHA 10/26/24 In Process (Saline Lock Ns) 22:00 Oxygen Per Hour RT 10/26/24 Transmitted 21:58 Hydrocodone-Acet PHA 10/26/24 In Process 5/325mg Tab ([place] 22:00 Ondansetron Hcl PHA 10/26/24 In Process (Zofran) 22:00 Docusate Sodium PHA 10/26/24 In Process Capsule (Colace 22:00 Fall Risk Precautions CHEPE 10/26/[address] 21:58 Complete Blood Count LAB 10/27/24 Verified 04:00 Comprehensive LAB 10/27/24 Verified Metabolic Panel 04:00 Cardiac DIET 10/27/24 Transmitted Diet-2gna,Lofat,Lochol Breakfast Condition: Serious CHEPE 10/26/24 In Process 21:58 Acetaminophen Tablet PHA 10/26/24 In Process (Tylenol Tablet) 22:00 Maintain Bed Rest CHEPE 10/26/24 In Process 21:58 Sequential CHEPE 10/26/24 In Process Compression Device Admit ADMIT 10/26/24 Verified 23:33 Nitroglycerin PHA 10/26/24 Verified Sublingual (Ntrostat 23:45 Morphine Sulfate PHA 10/26/24 Verified Injection 23:45 Problem List: (1) Acute and chronic respiratory failure (2) Pneumonia, unspecified organism (3) COPD with acute exacerbation (4) Generalized weakness (5) Acute exacerbation of congestive heart failure Date of Service: Oct 26, 2024 Billing Provider: GREGORY RAMIREZ DNP Common Visit Codes: [id number] INP/OBS CARE (HIGH) GREGORY RAMIREZ DNP Oct 26, 2024 23:36
[2024-10-26 23:39] VITALS: PULSE 101; RESP 18; O2SAT 97
[2024-10-26] MEDS: LEVALBUTEROL HCL 1.25 MG/3 ML NEB NEB SCH (23:39)
[2024-10-26 23:45] VITALS: BP 118/71; PULSE 101; PULSE 106; RESP 18; TEMP 97.5; O2SAT 100; O2SAT 97
[2024-10-26] MEDS ORDERED: NITROGLYCERIN 0.4 MG SL TAB SL PRN (23:45)
[2024-10-26] MEDS ORDERED: MORPHINE SULFATE INJ 2 MG/ml SYRG IV PRN (23:45)
[2024-10-27] VITALS (13 sets, daily range): BP systolic 114–123; BP diastolic 64–79; PULSE 65–93; RESP 18–24; TEMP 97.4–98.6; O2SAT 92–100
[2024-10-27 05:55] LABS: Hematocrit 34.2 % (41.0-53.0); Hemoglobin 11.5 g/dL (13.5-17.5); Mean Corpuscular Hemoglobin 34.6 pg (28.0-32.0); Mean Corpuscular Volume 103.0 fL (80.0-100.0); Nucleated Red Blood Cells % 0.0 %
[2024-10-27 06:14] LABS: Alanine Aminotransferase 31 U/L (7-40); Albumin 3.4 g/dL (3.2-4.8); Anion Gap 9 (5-15); BUN/Creatinine Ratio 18.6 (10.0-20.0); Calcium 8.7 mg/dL (8.7-10.4); Carbon Dioxide 26 mmol/L (20-31); Chloride 101 mmol/L (98-107); Potassium 4.8 mmol/L (3.5-5.1); Sodium 136 mmol/L (136-145); Total Protein 6.1 g/dL (5.7-8.2)
[2024-10-27 06:15] LABS: Alkaline Phosphatase 322 U/L (46-116); Bilirubin, Total 0.6 mg/dL (0.2-1.0); Blood Urea Nitrogen 24 mg/dL (9-23); Glucose 170 mg/dL (74-106)
[2024-10-27] MEDS ORDERED: SODIUM CHLORIDE 0.9% 500 ML IV ONE (15:30)
--- NOTE | 2024-10-27 15:37 | DVHPN2 ---
Assessment/Plan Assessment/Plan progress note 84 M with HFrEF, COPD group B, afib on eliquis, BPH, CKD 3a, admitted for SOB. on my assessment patient on room air. reported generalized weakness and SOB. physical exam aox4 cachectic b/l rhonchi, no wheezing s1 s2 rrr abdomen soft no LE edema labs ekg imaging reviewed assessment and plan acute RF pneumonia gp vs gn COPD group E with exacerbation chornic systolic HF anemia macrocytic ckd 3a HFrEF EF 10% severe MR gentle hydration resume home meds doxy prednisone breathing tx c/w xarelto diet soft dvt ppx lovenox full code Plan discussed with: Patient My Orders Orders - ROSALEE ZULETA MD Procedure Category Date Status Time Sodium Chloride 0.9% PHA 10/27/24 Logged 15:30 Basic Metabolic Panel LAB 10/28/24 Verified 04:00 Complete Blood Count LAB 10/28/24 Verified 04:00 Magnesium LAB 10/28/24 Verified 04:00 Phosphorus LAB 10/28/24 Verified 04:00 B-Type Natriuretic LAB 10/28/24 Verified Peptide 04:00 Famotidine Tablet PHA 10/28/24 Logged (Pepcid Tablet) 10:00 Date of Service: Oct 27, 2024 Billing Provider: ROSALEE ZULETA MD Common Visit Codes: [id number] INP/OBS CARE(HIGH) ROSALEE ZULETA MD Oct 27, 2024 15:37
[2024-10-27] MEDS: RIVAROXABAN 20 MG TAB PO SCH (18:00)
[2024-10-27] MEDS: FUROSEMIDE 40 MG/4 ML VIAL IV ONE (20:45)
[2024-10-28] VITALS (15 sets, daily range): BP systolic 114–131; BP diastolic 58–77; PULSE 73–109; RESP 16–20; TEMP 96.5–99.2; O2SAT 92–100
[2024-10-28 08:09] LABS: Hematocrit 39.5 % (41.0-53.0); Hemoglobin 13.3 g/dL (13.5-17.5); Mean Corpuscular Hemoglobin 34.7 pg (28.0-32.0); Mean Corpuscular Volume 103.1 fL (80.0-100.0); Nucleated Red Blood Cells % 0.0 %
[2024-10-28 08:10] LABS: Calcium 9.5 mg/dL (8.7-10.4); Chloride 99 mmol/L (98-107); Sodium 136 mmol/L (136-145)
[2024-10-28 08:13] LABS: Anion Gap 10 (5-15); Carbon Dioxide 27 mmol/L (20-31)
[2024-10-28 08:17] LABS: Magnesium 2.3 mg/dL (1.6-2.6)
[2024-10-28 08:18] LABS: BUN/Creatinine Ratio 22.7 (10.0-20.0)
[2024-10-28 08:20] LABS: Blood Urea Nitrogen 30 mg/dL (9-23); Glucose 120 mg/dL (74-106); Potassium 5.1 mmol/L (3.5-5.1)
[2024-10-28] MEDS: FUROSEMIDE 40 MG/4 ML VIAL IV SCH (10:38)
[2024-10-28] MEDS: FAMOTIDINE 20 MG TAB PO SCH (10:39)
[2024-10-28] MEDS: predniSONE 20 MG TAB PO ONE ×2 (13:30→16:00)
--- NOTE | 2024-10-28 16:25 | DVHPN2 ---
Assessment/Plan Assessment/Plan progress note 84 M with HFrEF, COPD group B, afib on eliquis, BPH, CKD 3a, admitted for SOB. on my assessment patient on room air. reported generalized weakness and SOB. breathing improved, comf on room air. cr trend up slightly will monitor. physical exam aox4 cachectic b/l rhonchi, no wheezing s1 s2 rrr abdomen soft no LE edema labs ekg imaging reviewed assessment and plan acute RF pneumonia gp vs gn COPD group E with exacerbation chornic systolic HF anemia macrocytic ckd 3a HFrEF EF 10% severe MR gentle hydration resume home meds doxy prednisone breathing tx c/w xarelto diet soft dvt ppx lovenox full code Plan discussed with: Patient My Orders Orders - ROSALEE ZULETA MD Procedure Category Date Status Time * Wound Consult CONS 10/28/24 Transmitted Prednisone Tablet PHA 10/29/24 In Process 10:00 Acetaminophen Tablet PHA 10/28/24 Verified (Tylenol Tablet) 16:30 Code Status CODE 10/28/24 Verified 16:22 Date of Service: Oct 28, 2024 Billing Provider: ROSALEE ZULETA MD Common Visit Codes: [id number] INP/OBS CARE(HIGH) ROSALEE ZULETA MD Oct 28, 2024 16:25
[2024-10-28] MEDS: ACETAMINOPHEN 325 MG TAB PO PRN (17:54)
[2024-10-28] MEDS: SENNA 8.6 MG TAB PO SCH (21:43)
[2024-10-29] VITALS (16 sets, daily range): BP systolic 116–138; BP diastolic 72–87; PULSE 65–88; RESP 14–20; TEMP 96.5–98.4; O2SAT 96–100
[2024-10-29 07:19] LABS: Nucleated Red Blood Cells % 0.1 %
[2024-10-29 07:21] LABS: Hematocrit 38.6 % (41.0-53.0); Hemoglobin 12.6 g/dL (13.5-17.5); Mean Corpuscular Hemoglobin 34.3 pg (28.0-32.0); Mean Corpuscular Volume 105.4 fL (80.0-100.0)
[2024-10-29 07:23] LABS: Calcium 8.9 mg/dL (8.7-10.4); Chloride 100 mmol/L (98-107); Potassium 4.6 mmol/L (3.5-5.1)
[2024-10-29 07:24] LABS: Anion Gap 9 (5-15); Carbon Dioxide 27 mmol/L (20-31)
[2024-10-29 07:29] LABS: BUN/Creatinine Ratio 23.9 (10.0-20.0)
[2024-10-29 07:31] LABS: Blood Urea Nitrogen 26 mg/dL (9-23); Glucose 107 mg/dL (74-106); Sodium 136 mmol/L (136-145)
[2024-10-29] MEDS: predniSONE 20 MG TAB PO SCH (10:27)
--- NOTE | 2024-10-29 17:11 | DVHPN2 ---
Assessment/Plan Assessment/Plan progress note 84 M with HFrEF, COPD group B, afib on eliquis, BPH, CKD 3a, admitted for SOB. on my assessment patient on room air. reported generalized weakness and SOB. plan for dc tomorrow physical exam aox4 cachectic b/l rhonchi, no wheezing s1 s2 rrr abdomen soft no LE edema labs ekg imaging reviewed assessment and plan acute RF pneumonia gp vs gn COPD group E with exacerbation chronic hypoxic RF chornic systolic HF anemia macrocytic ckd 3a HFrEF EF 10% severe MR gentle hydration resume home meds doxy prednisone breathing tx c/w xarelto diet soft dvt ppx lovenox full code Plan discussed with: Patient My Orders Orders - ROSALEE ZULETA MD Procedure Category Date Status Time Notify Provider NOTICE 10/29/24 Transmitted Malnutrition 10:37 Nutritional NOURISH 10/29/24 Transmitted Supplements 10:37 Dietary NOTICE 10/29/24 Transmitted Recommendations 10:37 * Wound Consult CONS 10/29/24 Transmitted Cleanse Wound With CHEPE 10/29/24 In Process Mild Soap A 14:03 * Sustainability Project Manager CONS 10/29/24 Verified Consult Date of Service: Oct 29, 2024 Billing Provider: ROSALEE ZULETA MD Common Visit Codes: [id number] INP/OBS CARE(HIGH) ROSALEE ZULETA MD Oct 29, 2024 17:11
[2024-10-29] MEDS: MELATONIN 5 MG TAB PO ONE (21:46)
[2024-10-30] VITALS (11 sets, daily range): BP systolic 114–126; BP diastolic 61–88; PULSE 71–96; RESP 16–20; TEMP 97.5–98.2; O2SAT 94–100
[2024-10-30] MEDS ORDERED: SENN-105 PO (09:16)
[2024-10-30] MEDS ORDERED: DOXY1CAP57 PO (09:16)
[2024-10-30] MEDS ORDERED: PRED20TA2 PO (09:16)
--- NOTE | 2024-10-30 09:19 | DVHDS2 ---
Discharge Summary Date of Admission Oct 26, 2024 at 23:33 Date of Discharge: Oct 30, 2024 Labs/Diagnostic Data: Laboratory Results Test 10/29/24 05:45 10/28/24 07:19 10/27/24 04:28 10/26/24 18:25 White Blood Count 13.4 10^3/uL (4.4-10.8) Red Blood Count 3.66 10^6/uL (4.5-5.90) Hemoglobin 12.6 g/dL (13.5-17.5) Hematocrit 38.6 % (41.0-53.0) Mean Corpuscular Volume 105.4 fL (80.0-100.0) Mean Corpuscular Hemoglobin 34.3 pg (28.0-32.0) Mean Corpuscular Hemoglobin Concent 32.6 g/dL (32.0-36.0) Red Cell Distribution Width 14.6 % (11.8-14.3) Platelet Count 205 10^3/uL (140-450) Mean Platelet Volume 8.0 fL (6.9-10.8) Neutrophils (%) (Auto) 96.1 % (37.0-80.0) Lymphocytes (%) (Auto) 1.8 % (10.0-50.0) Monocytes (%) (Auto) 2.0 % (0.0-12.0) Eosinophils (%) (Auto) 0.0 % (0.0-7.0) Basophils (%) (Auto) 0.1 % (0.0-2.0) Neutrophils # (Auto) 12.9 10 ^3/uL (1.6-8.6) Lymphocytes # (Auto) 0.2 10 ^3/uL (0.4-5.4) Monocytes # (Auto) 0.3 10 ^3/uL (0-1.3) Eosinophils # (Auto) 0 10 ^3/uL (0-0.8) Basophils # (Auto) 0 10 ^3/uL (0-0.2) Nucleated Red Blood Cells 0.1 % Sodium Level 136 mmol/L (136-145) Potassium Level 4.6 mmol/L (3.5-5.1) Chloride Level 100 mmol/L (98-107) Carbon Dioxide Level 27 mmol/L (20-31) Anion Gap 9 (5-15) Blood Urea Nitrogen 26 mg/dL (9-23) Creatinine 1.09 mg/dL (0.700-1.30) Glomerular Filtration Rate Calc 66 mL/min (>90) BUN/Creatinine Ratio 23.9 (10.0-20.0) Serum Glucose 107 mg/dL (74-106) Calcium Level 8.9 mg/dL (8.7-10.4) Phosphorus Level 3.0 mg/dL (2.4-5.1) Magnesium Level 2.3 mg/dL (1.6-2.6) B-Type Natriuretic Peptide 1120.84 pg/mL (0-100) Total Bilirubin 0.6 mg/dL (0.2-1.0) Aspartate Amino Transferase (AST) 38 U/L (13-40) Alanine Aminotransferase (ALT) 31 U/L (7-40) Alkaline Phosphatase 322 U/L (46-116) Total Protein 6.1 g/dL (5.7-8.2) Albumin 3.4 g/dL (3.2-4.8) Troponin I High Sensitivity 15 ng/L (</=54) Test 10/26/24 15:53 Urine Color Yellow (Yellow) Urine Clarity Clear (Clear) Urine pH 6.5 (5.0-9.0) Urine Specific [place] 1.022 (1.001-1.035) Urine Protein 1+ (Negative) Urine Ketones Negative (Negative) Urine Blood Negative /uL (Negative) Urine Nitrite Negative (Negative) Urine Bilirubin Negative (Negative) Urine Urobilinogen Normal mg/dL (Negative) Urine Leukocyte Esterase Negative /uL (Negative) Urine RBC 4 /hpf (0 - 3) Urine Microscopic WBC 1 /HPF (0-3) Urine Squamous Epithelial Cells Few /hpf (<5) Urine Bacteria None seen /hpf (None Seen) Urine Glucose Normal mg/dL (Normal) Other Laboratory Tests 10/29/24 05:45 Brief Hx & Hospital Course: 84 M with HFrEF, COPD group B, afib on eliquis, BPH, CKD 3a, admitted for SOB. on my assessment patient on room air. reported generalized weakness and SOB. patient has multiple comorbid condition, informed patient that his mobility might be limited and exercise tolerance are realtively low. informed that if adl is getting difficult he could [facility] aptient reported he prefers to stay with home health with [facility]. stable to dc Condition at Discharge: Stable Final Diagnosis/Problems List acute RF pneumonia gp vs gn COPD group E with exacerbation chronic hypoxic RF chornic systolic HF anemia macrocytic ckd 3a HFrEF EF 10% severe MR Discharge Disposition: Home with Health Services Discharge Instruct/Medications Diet: Consistent carbohydrate, Cardiac 2g Na,low cholest Activity: No Restrictions, As Tolerated Follow Up/Referral: dc clinic Medications: prednisone doxy Scheduled Doxycycline Monohydrate (Doxycycline Monohydrate), 1 CAP PO BID Empagliflozin (Jardiance), 10 MG PO DAILY Furosemide (Lasix), 40 MG PO DAILY Hydroxychloroquine Sulfate (Hydroxychloroquine Sulfat), 200 MG PO DAILY Metoprolol Succinate (Metoprolol Succinate Er), 1 TAB PO DAILY Prednisone (Prednisone), 40 MG PO DAILY Rivaroxaban (Xarelto), 1 TAB PO QPM Spironolactone (Aldactone), 1 TAB PO DAILY Tamsulosin Hcl (Flomax), 0.4 MG PO DAILY, (Reported) Zolpidem Tartrate (Ambien), 1 TAB PO QPM, (Reported) Scheduled PRN Albuterol Sulfate (Ventolin Mdi), 90 MCG IN QID PRN Epinephrine (Anaphylaxis) (Auvi-Q), 0.1 MG IJ O PRN Hydrocodone-Acetaminophen (Hydrocodone Bitartrate/AC 5-325 mg), 1 TAB PO Q6HPRN PRN Senna (Senna), 8.6 MG PO DAILYP PRN Discharge Statement: "Patient was advised to return to the ER or call 911 if any headaches, dizziness, shortness of breath, chest pain, abdominal pain, bleeding, fevers, or worsening of medical condition. Patient was counseled about treatment plan, medications, possible side effects, patientverbalized understanding. All questions were answered to the best of my ability. This discharge took greater then 30 minutes in planning, reviewing documentation, counseling the patient, and discussing with other team members." ASSESSMENT ASSESSMENT Assessment COPD exacerbation Date of Service: Oct 30, 2024 Billing Provider: ROSALEE ZULETA MD Common Visit Codes: [id number] DISCH DAY >30min ROSALEE ZULETA MD Oct 30, 2024 09:19
[2024-10-30] MEDS: Ensure Enlive Vanilla 8oz Bottle PO SCH (10:00)
== END 2024-10-30 14:45 | disposition home or self-care (01) | DRG 189 ==
LOC: EDBD 11:57 → ER 11:57 → OVERFLOW 23:33 → TELE-WESTW 10-27 17:07
PROVIDERS: ADMIT Student in an Organized Health Care Education/Training Program; ATTEND Student in an Organized Health Care Education/Training Program
DX: J96.21 Acute and chronic respiratory failure with hypoxia (principal); I50.41 Acute combined systolic (congestive) and diastolic (congestive) heart failure; J15.69 Pneumonia due to other Gram-negative bacteria; J15.9 Unspecified bacterial pneumonia; J44.0 Chronic obstructive pulmonary disease with (acute) lower respiratory infection; J44.1 Chronic obstructive pulmonary disease with (acute) exacerbation; D53.9 Nutritional anemia, unspecified; I48.91 Unspecified atrial fibrillation; N18.31 Chronic kidney disease, stage 3a; N40.0 Benign prostatic hyperplasia without lower urinary tract symptoms; Z79.01 Long term (current) use of anticoagulants
CPT/HCPCS: 36415; 71045; 80048; 80053; 81001; 83735; 83880; 84100; 84484; 85025; 93005; 94640; 96374; 97163; 99291; G0378; J3490

== ENCOUNTER 2024-11-09 06:29 | Inpatient (IN) | payer OTHER, MEDICARE ==
[~2024-11-09] VITALS: Ht 180.3 cm; Wt 49.6 kg
[~2024-11-09 06:29] MED LIST changes: +DOXY1CAP57 PO; +PRED20TA2 PO; +SENN-105 PO
--- NOTE | 2024-11-09 06:38 | ECG ---
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
--- NOTE | 2024-11-09 06:42 | ED.PDOC ---
History of Present Illness HPI Comments 84-year-old male BIBA with prior medical history of AFib, arthritis, CHF, COPD, PE: Surgical history of hernia repair, tonsillectomy and the chief complaint of general weakness for three days. EMS reported that the patient also has dizziness when he ambulates, and lives alone. EMS state, "all vitals unrem arkable . Denies chills, fever, N/V/D, SOB, CP. No other associated symptoms, modifiers, recent injuries or sick contacts present at this time. Time Seen by MD: 06:35 Primary Care Provider: OK Reviewed Notes: Nurses Notes, Medications, Allergies Allergies: Coded Allergies: Sulfa Antibiotics (Verified Allergy, Severe, 05/08/24) Sulfabenzamide (Verified Allergy, Intermediate, 05/08/24) Sulfacetamide (Verified Allergy, Intermediate, 05/08/24) Sulfathiazole (Verified Allergy, Intermediate, 05/08/24) Sacubitril (Unverified Allergy, Unknown, SOB Weakness , 08/21/24) Per pt report Valsartan (Unverified Allergy, Unknown, SOB Weakness , 08/21/24) Per pt report Metoprolol (Verified Adverse Reaction, Severe, 07/12/24) "don't feel very good" per patient Sitagliptin (Verified Adverse Reaction, Severe, 07/12/24) Pt states it made him "feel not very good" Home Meds Active Scripts Senna (Senna) 8.6 Mg Tab, 8.6 MG PO DAILYP PRN for 30 Days, #30 TAB Prov:ROSALEE ZULETA MD 10/30/24 Doxycycline Monohydrate (Doxycycline Monohydrate) 100 Mg Cap, 1 CAP PO BID for 5 Days, #10 CAP Prov:ROSALEE ZULETA MD 10/30/24 Prednisone (Prednisone) 20 Mg Tab, 40 MG PO DAILY for 3 Days, #6 MG Prov:ROSALEE ZULETA MD 10/30/24 Hydroxychloroquine Sulfate (Hydroxychloroquine Sulfat) 200 Mg Tab, 200 MG PO DAILY, #30 TAB 5 Refills Prov:CONNIE COLON MD 07/01/24 Hydrocodone-Acetaminophen (Hydrocodone Bitartrate/AC 5-325 mg) 1 Tab Tab, 1 TAB PO Q6HPRN PRN, #20 TAB Prov:CONNIE COLON MD 07/01/24 Rivaroxaban (XARELTO) 20 Mg Tab, 1 TAB PO QPM, #30 TAB 5 Refills Prov:CONNIE COLON MD 07/01/24 Albuterol Sulfate (VENTOLIN MDI) 90 Mcg Ih, 90 MCG IN QID PRN, #1 INH Prov:RAY CORCORAN MD 06/17/24 Spironolactone (Aldactone) 25 Mg Tab, 1 TAB PO DAILY, #30 TAB 5 Refills Prov:HERBIE LEI MD 05/11/24 Furosemide (Lasix) 40 Mg Tab, 40 MG PO DAILY for 30 Days, #30 TAB 5 Refills Prov:HERBIE LEI MD 05/11/24 Metoprolol Succinate (Metoprolol Succinate Er) 25 Mg Tab, 1 TAB PO DAILY, #30 TAB 1 Refill Prov:ZEENAT PRATT MD 04/20/24 Empagliflozin (Jardiance) 10 Mg Tab, 10 MG PO DAILY for 30 Days, #30 TAB 1 Refill Prov:ZEENAT PRATT MD 04/20/24 Epinephrine (Anaphylaxis) (Auvi-Q) 0.1 Mg/0.1 Ml Inj, 0.1 MG IJ O PRN for 1 Day, #1 INJ Prov:MARCELO TOWNSEND MD 09/09/23 Reported Medications Zolpidem Tartrate (Ambien) 10 Mg Tab, 1 TAB PO QPM 09/20/23 Tamsulosin Hcl (Flomax) 0.4 Mg Cap, 0.4 MG PO DAILY, CAP 09/04/23 Information Source: Patient Mode of Arrival: EMS Severity: Moderate Timing: Days Duration: Since onset, Days Prehospital treatment: None Past Medical History PAST MEDICAL HISTORY: AFIB, Arthritis, CHF, COPD, PE Surgical History: Hernia Repair, Tonsillectomy Family History Family History: Reviewed,noncontributory to illness, Unknown Social History Smoker: Non-Smoker Alcohol: Denies ETOH Use Drugs: Denies Drug Use Lives In: Home Constitutional: reports: weakness; denies: chills, diaphoresis, fatigue, fever, malaise, sweats, others EENTM: denies: blurred vision, double vision, ear bleeding, ear discharge, ear drainage, ear pain, ear ringing, eye pain, eye redness, hearing loss, mouth pain, mouth swelling, nasal discharge, nose bleeding, nose congestion, nose pain, photophobia, tearing, throat pain, throat swelling, voice changes, others Respiratory: denies: cough, hemoptysis, orthopnea, SOB at rest, shortness of breath, SOB with excertion, stridor, wheezing, others Cardiovascular: denies: chest pain, dizzy spells, diaphoresis, Dyspnea on exertion, edema, irregular heart beat, left arm pain, lightheadedness, palpitations, PND, syncope, others Gastrointestinal: denies: abdomen distended, abdominal pain, blood streaked bowels, constipated, diarrhea, dysphagia, difficulty swallowing, hematemesis, melena, nausea, poor appetite, poor fluid intake, rectal bleeding, rectal pain, vomiting, others Genitourinary: denies: burning, dysuria, flank pain, frequency, hematuria, incontinence, penile discharge, penile sore, pain, testicle pain, testicle swelling, urgency, others Neurological: reports: dizziness (during ambulation); denies: fainting, headache, left sided numbness, left sided weakness, numbness, paresthesia, pre- existing deficit, right sided numbness, right sided weakness, seizure, speech problems, tingling, tremors, weakness, others Musculoskeletal: denies: back pain, gout, joint pain, joint swelling, muscle pain, muscle stiffness, neck pain, others Integumetry: denies: bruises, change in color, change in hair/nails, dryness, laceration, lesions, lumps, rash, wounds, others Allergic/Immunocompromised: denies: Difficulty Healing, Frequent Infections, Hives, Itching, others Hematologic/Lymphatic: denies: anemia, blood clots, easy bleeding, easy bruising, swollen glands, others Endocrine: denies: excessive hunger, excessive sweating, excessive thirst, excessive urination, flushing, intolerance to cold, intolerance to heat, unexplained weight gain, unexplained weight loss, others Psychiatric: denies: anxiety, bipolar disorder, depression, hopeless, panic disorder, schizophrenia, sleepless, suicidal, others All Other Systems: Reviewed and Negative Physical Exam General Appearance: Moderate Distress, Normal HEENT: Normal ENT Inspection, Pharynx Normal, TMs Normal Neck: Full Range of Motion, Non-Tender, Normal, Normal Inspection Respiratory: Chest Non-Tender, Lungs Clear, No Accessory Muscle Use, No Respiratory Distress, Normal Breath Sounds Cardiovascular: No Edema, No JVD, No Murmur, No Gallop, Normal Peripheral Pulses, Regular Rate/Rhythm Breast Exam: Deferred Gastrointestinal: No Organomegaly, Non Tender, No Pulsatile Mass, Normal Bowel Sounds, Soft Genitalia: Deferred Pelvic: Deferred Rectal: Deferred Extremities: No calf tenderness, Normal capillary refill, Normal inspection, Normal range of motion, Non-tender, No pedal edema Musculoskeletal : Apperance: Normal Neurologic: Alert, 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 Was a procedure done?: No EKG EKG : Pulse Rate (adult): 71 Horatio: Normal Cardiac Rhythm: Afib Block: None Hypertrophy: None ST: Normal Differential Dx Considerations may include: Decubitus Electrolyte imbalance X-Ray, Labs, Meds, VS Vital Signs Date Time Temp Pulse Resp B/P (MAP) Pulse Ox O2 Delivery O2 Flow Rate FiO2 11/09/24 06:33 71 Patient alert. He does have a cough. Possible pneumonitis. Vitals stable. Has a decubitus. Wound consultation. Establish intravenous access. Was given fluids. He does come frequently. Reviewed his previous visit. Explained to the patient. Continue monitoring. Time of 1ST Reevaluation: 07:05 Reevaluation 1ST: Unchanged Patient Education/Counseling: Diagnosis, Treatment, Prognosis Family Education/Counseling: No Family Present SEPSIS Sepsis Screen Physician Orders Troponin-I Hs (11/09/24 06:37) Complete Blood Count (11/09/24 06:37) Chest Portable (11/09/24 06:37) Urinalysis (11/09/24 06:37) Basic Metabolic Panel (11/09/24 06:37) 1 Liter Bolus Of 0.9% Ns (11/09/24 06:45) Vital Signs Date Time Temp Pulse Resp B/P (MAP) Pulse Ox O2 Delivery O2 Flow Rate FiO2 11/09/24 06:33 71 Departure 1 Departure Time of Disposition: 06:45 Impression: Primary Impression: Decubitus ulcer Qualified Codes: L89.159 - Pressure ulcer of sacral region, unspecified stage Additional Impression: Pneumonitis Disposition: ADMITTED INPATIENT Admit to: Med Surg Condition: Guarded Critical Care Note Critical Care Time?: No Stability Stability form required: No Heart Score Heart Score: Heart Score Response (Comments) Value History Slightly Suspicious 0 EKG Normal 0 Age >65 2 Risk Factors >3 or Hx ASHD 2 Troponin Normal limit 0 Total 4 I personally scribed for ZULMA PATEL MD ([email or web address]) on 11/09/24 at 06:42. Electronically submitted by Gonsalo Rodriguez ([employer]). I personally scribed for ZULMA PATEL MD ([email or web address]) on 11/09/24 at 06:49. Electronically submitted by Gonsalo Rodriguez [email or web address]). ZULMA PATEL MD Nov 09, 2024 06:42
[2024-11-09 07:05] LABS: Hematocrit 37.2 % (41.0-53.0); Hemoglobin 12.0 g/dL (13.5-17.5); Mean Corpuscular Hemoglobin 32.5 pg (28.0-32.0); Mean Corpuscular Volume 100.8 fL (80.0-100.0); Nucleated Red Blood Cells % 0.1 %
[2024-11-09 07:07] LABS: Potassium 3.9 mmol/L (3.5-5.1); Sodium 140 mmol/L (136-145)
[2024-11-09 07:09] LABS: Anion Gap 6 (5-15); Calcium 8.8 mg/dL (8.7-10.4)
[2024-11-09 07:14] LABS: BUN/Creatinine Ratio 27.3 (10.0-20.0); Glucose 92 mg/dL (74-106)
[2024-11-09 07:18] LABS: Blood Urea Nitrogen 38 mg/dL (9-23); Carbon Dioxide 36 mmol/L (20-31); Chloride 98 mmol/L (98-107)
--- NOTE | 2024-11-09 07:54 | DVH ---
CHEST RADIOGRAPH Indication: COUGH Technique: Single frontal view of the chest was obtained COMPARISON: XY CHEST PORTABLE on DOS: 10/26/24, XY CHEST PORTABLE on DOS: 10/11/24, XY CHEST PORTABLE on DOS: 09/24/24, XY CHEST PORTABLE on DOS: 09/11/24, XY CHEST PORTABLE on DOS: 08/25/24 FINDINGS: Lines and Tubes: None Lungs: Left lower lobe airspace disease. Pleura: No effusion. No pneumothorax. Cardiomediastinal contours: Unremarkable Bones: Unremarkable IMPRESSION: Chronic fibrotic changes with probable superimposed left lower lobe airspace disease.
[2024-11-09 08:20] VITALS: PULSE 78; RESP 22; O2SAT 98
[2024-11-09] MEDS: HYDROcodone-ACET 5/325MG TAB PO ONE (08:55)
[2024-11-09] MEDS: SODIUM CHLORIDE 0.9% 1,000 ML IV ONE (08:56)
[2024-11-09] MEDS: CLINDAMYCIN 300MG IV 50 ML IV ONE (10:39)
--- NOTE | 2024-11-09 10:43 | DVHHP2 ---
Admitting Diagnosis: Weakness History of Present Illness 84-year-old male AMPARO with prior medical history of AFib, arthritis, CHF, COPD, PE: Surgical history of hernia repair, tonsillectomy and the chief complaint of general weakness for three days. EMS reported that the patient also has dizziness when he ambulates, and lives alone. EMS state, "all vitals unremarkable . Denies chills, fever, N/V/D, SOB, CP. No other associated symptoms, modifiers, recent injuries or sick contacts present at this time. PAST MEDICAL HISTORY: AFIB, Arthritis, CHF, COPD, PE Surgical History: Hernia Repair, Tonsillectomy Family History Family History: Reviewed,noncontributory to illness, Unknown Social History Smoker: Non-Smoker Alcohol: Denies ETOH Use Drugs: Denies Drug Use Lives In: Home Patient Family History: Alcoholism G8 FATHER, Onset:Unknown (patient states his father left when he was a child and doesnt know much about him) FH: atrial fibrillation G8 MOTHER, Onset:60 years & older FH: migraines G8 MOTHER GERD G8 MOTHER, Onset:60 years & older Hypertension G8 MOTHER, Onset:50's - 60 Allergies: Coded Allergies: Sulfa Antibiotics (Verified Allergy, Severe, 05/08/24) Sulfabenzamide (Verified Allergy, Intermediate, 05/08/24) Sulfacetamide (Verified Allergy, Intermediate, 05/08/24) Sulfathiazole (Verified Allergy, Intermediate, 05/08/24) Sacubitril (Unverified Allergy, Unknown, SOB Weakness , 08/21/24) Per pt report Valsartan (Unverified Allergy, Unknown, SOB Weakness , 08/21/24) Per pt report Metoprolol (Verified Adverse Reaction, Severe, 07/12/24) "don't feel very good" per patient Sitagliptin (Verified Adverse Reaction, Severe, 07/12/24) Pt states it made him "feel not very good" Home Meds Active Scripts Senna (Senna) 8.6 Mg Tab, 8.6 MG PO DAILYP PRN for 30 Days, #30 TAB Prov:ROSALEE ZULETA MD 10/30/24 Doxycycline Monohydrate (Doxycycline Monohydrate) 100 Mg Cap, 1 CAP PO BID for 5 Days, #10 CAP Prov:ROSALEE ZULETA MD 10/30/24 Prednisone (Prednisone) 20 Mg Tab, 40 MG PO DAILY for 3 Days, #6 MG Prov:ROSALEE ZULETA MD 10/30/24 Hydroxychloroquine Sulfate (Hydroxychloroquine Sulfat) 200 Mg Tab, 200 MG PO DAILY, #30 TAB 5 Refills Prov:CONNIE COLON MD 07/01/24 Hydrocodone-Acetaminophen (Hydrocodone Bitartrate/AC 5-325 mg) 1 Tab Tab, 1 TAB PO Q6HPRN PRN, #20 TAB Prov:CONNIE COLON MD 07/01/24 Rivaroxaban (XARELTO) 20 Mg Tab, 1 TAB PO QPM, #30 TAB 5 Refills Prov:CONNIE COLON MD 07/01/24 Albuterol Sulfate (VENTOLIN MDI) 90 Mcg Ih, 90 MCG IN QID PRN, #1 INH Prov:RAY CORCORAN MD 06/17/24 Spironolactone (Aldactone) 25 Mg Tab, 1 TAB PO DAILY, #30 TAB 5 Refills Prov:HERBIE LEI MD 05/11/24 Furosemide (Lasix) 40 Mg Tab, 40 MG PO DAILY for 30 Days, #30 TAB 5 Refills Prov:HERBIE LEI MD 05/11/24 Metoprolol Succinate (Metoprolol Succinate Er) 25 Mg Tab, 1 TAB PO DAILY, #30 TAB 1 Refill Prov:ZEENAT PRATT MD 04/20/24 Empagliflozin (Jardiance) 10 Mg Tab, 10 MG PO DAILY for 30 Days, #30 TAB 1 Refill Prov:ZEENAT PRATT MD 04/20/24 Epinephrine (Anaphylaxis) (Auvi-Q) 0.1 Mg/0.1 Ml Inj, 0.1 MG IJ O PRN for 1 Day, #1 INJ Prov:MARCELO TOWNSEND MD 09/09/23 Reported Medications Zolpidem Tartrate (Ambien) 10 Mg Tab, 1 TAB PO QPM 09/20/23 Tamsulosin Hcl (Flomax) 0.4 Mg Cap, 0.4 MG PO DAILY, CAP 09/04/23 Vital Signs Vital Signs Date Time Temp Pulse Resp B/P (MAP) Pulse Ox O2 Delivery O2 Flow Rate FiO2 11/09/24 08:20 78 22 98 Room Air* 0 21 11/09/24 08:20 96.0 141/72 (95) 96.0 Physical Exam Generally-84 years old male, frail, lying in bed. No apparent distress HEENT-atraumatic normocephalic Heart-regular rate and rhythm Lungs-mild crackles Abdomen soft nontender nondistended Musculoskeletal-no edema cyanosis Skin- pt does not want to turn at this time. pt is lying flat in bed wtching youtube on the phone. Neuro-AO x3, strength and sensation intact SEPSIS Sepsis Screen Date sepsis recognized/suspect: Nov 09, 2024 Time Sepsis recognized/suspect: 819 Recent Procedure: No On Antibiotic Therapy: Yes Respiratory Rate >20: No Heart Rate >90: No Temp<36 C (96.8 F) or >38.3 C: No SBP <90 or MAP <65 mmHG: No New Acute Mental Status Change: No Is the patient on CPAP, BIPAP,: No Physician Orders Urinalysis (11/09/24 06:37) Chest Portable (11/09/24 07:02) B-Type Natriuretic Peptide (11/09/24 11:23) Echo 2d Mode Cardiac Dop (11/09/24 11:23) Ceftriaxone Ivpb Rocephin (11/10/24 09:00) Azithromycin 500mg/ 250ml (Zithromax 50 (11/10/24 10:00) Pt Request For Service (11/09/24 11:23) * Wound Consult (11/09/24 ) Daily Weight (11/09/24 11:23) Maintain Fluid Restrictions QSHIFT (11/09/24 11:23) Strict I & O QSHIFT (11/09/24 11:23) *[facility] (11/09/24 11:23) Furosemide Injection (Lasix Injection) (11/09/24 18:00) Empagliflozin (Jardiance) (11/10/24 10:00) Rivaroxaban Tablet (Xarelto Tablet) (11/09/24 18:00) Senna Pod Tablet (Senokot Tablet) (11/09/24 11:30) Spironolactone (Aldactone) (11/10/24 10:00) Tamsulosin Hydrochloride (Flomax) (11/10/24 10:00) (Nf) Metoprolol Succinate (Metoprolol [place] (11/10/24 10:00) Admit (11/09/24 11:23) Code Status (11/09/24:) Vital Signs .PER UNIT PROTOCOL (11/09/24 11:23) Review Orders With Adm. (11/09/24 11:23) Encourage Activity As Tolerate (11/09/24 11:23) Sodium Chloride Lock (Saline Lock Ns) (11/09/24 14:00) Docusate Sodium Capsule (Colace Capsule) (11/09/24 11:30) Acetaminophen Tablet (Tylenol Tablet) (11/09/24 11:30) Notify Md Of Changes From Base (11/09/24 11:) Advance Directive (11/09/24 11:) Patient Condition (11/09/24 11:23) Allergies (11/09/24 11:23) Hydrocodone-Acet 5/325mg Tab ([place] 5/32 (11/09/24 11:30) Ondansetron Hcl (Zofran) (11/09/24 11:30) Cardiac Diet-2gna,Lofat,Lochol (11/09/24 Lunch) Complete Blood Count (11/10/24 05:00) Complete Blood Count (11/11/24 05:00) Complete Blood Count (11/12/24 05:00) Complete Blood Count (11/13/24 05:00) Complete Blood Count (11/14/24 05:00) Comprehensive Metabolic Panel (11/10/24 05:00) Comprehensive Metabolic Panel (11/11/24 05:00) Comprehensive Metabolic Panel (11/12/24 05:00) Comprehensive Metabolic Panel (11/13/24 05:00) Comprehensive Metabolic Panel (11/14/24 05:00) Magnesium (11/10/24 05:00) Magnesium (11/11/24 05:00) Magnesium (11/12/24 05:00) Magnesium (11/13/24 05:00) Magnesium (11/14/24 05:00) Vital Signs Date Time Temp Pulse Resp B/P (MAP) Pulse Ox O2 Delivery O2 Flow Rate FiO2 11/09/24 08:20 78 22 98 Room Air* 0 21 11/09/24 08:20 96.0 78 22 141/72 (95) 96.0 11/09/24 06:49 71 11/09/24 06:40 97.9 75 16 120/57 96 97.9 11/09/24 06:33 71 Laboratory Tests Test 11/09/24 06:44 White Blood Count 10.5 10^3/uL (4.4-10.8) Medications Medications Dose Ordered Sig/Louie Route Start Time Stop Time Status Last Admin Dose Admin Acetaminophen/ Hydrocodone Bitart 1 tab ONCE ONCE PO 11/09/24 08:15 11/09/24 08:16 DC 11/09/24 08:55 Ceftriaxone Sodium 50 ml @ 100 mls/hr ONCE ONCE IV 11/09/24 06:45 11/09/24 07:14 DC 11/09/24 08:56 Clindamycin Phosphate 50 ml @ 50 mls/hr ONCE ONCE IV 11/09/24 06:45 11/09/24 07:44 DC 11/09/24 10:39 Sodium Chloride 1,000 ml @ 1,000 mls/hr Q1H ONCE IV 11/09/24 06:45 11/09/24 07:44 DC 11/09/24 08:56 Results Labs Test 11/09/24 07:04 11/09/24 06:44 Range/Units POC Glucose 102 70-106 mg/dl White Blood Count 10.5 4.4-10.8 10^3/uL Red Blood Count 3.69 L 4.5-5.90 10^6/uL Hemoglobin 12.0 L 13.5-17.5 g/dL Hematocrit 37.2 L 41.0-53.0 % Mean Corpuscular Volume 100.8 H 80.0-100.0 fL Mean Corpuscular Hemoglobin 32.5 H 28.0-32.0 pg Mean Corpuscular Hemoglobin Concent 32.2 32.0-36.0 g/dL Red Cell Distribution Width 14.5 H 11.8-14.3 % Platelet Count 221 140-450 10^3/uL Mean Platelet Volume 7.3 6.9-10.8 fL Neutrophils (%) (Auto) 85.6 H 37.0-80.0 % Lymphocytes (%) (Auto) 6.4 L 10.0-50.0 % Monocytes (%) (Auto) 7.3 0.0-12.0 % Eosinophils (%) (Auto) 0.4 0.0-7.0 % Basophils (%) (Auto) 0.3 0.0-2.0 % Neutrophils # (Auto) 9.0 H 1.6-8.6 10 ^3/uL Lymphocytes # (Auto) 0.7 0.4-5.4 10 ^3/uL Monocytes # (Auto) 0.8 0-1.3 10 ^3/uL Eosinophils # (Auto) 0 0-0.8 10 ^3/uL Basophils # (Auto) 0 0-0.2 10 ^3/uL Nucleated Red Blood Cells 0.1 % Sodium Level 140 136-145 mmol/L Potassium Level 3.9 3.5-5.1 mmol/L Chloride Level 98 98-107 mmol/L Carbon Dioxide Level 36 H 20-31 mmol/L Anion Gap 6 5-15 Blood Urea Nitrogen 38 H 9-23 mg/dL Creatinine 1.39 H 0.700-1.30 mg/dL Glomerular Filtration Rate Calc 49 >90 mL/min BUN/Creatinine Ratio 27.3 H 10.0-20.0 Serum Glucose 92 74-106 mg/dL Calcium Level 8.8 8.7-10.4 mg/dL Troponin I High Sensitivity 29 </=54 ng/L Primary Diagnosis Pressure ulcer Generalized fatigue Lower lung opacity rule out pneumonia Plan Ceftriaxone and azithromycin for broad-spectrum antibiotics. Check sputum culture Check procalcitonin and CRP IV fluids Physical therapy evaluation Check echo of the heart to assess for dyspnea on exertion Wound consult for pressure ulcer Nephrology consult for TIMBO on CKD Resume home meds Regular diet Full code P.o. anticoagulation Plan discussed with: Patient Problems List: (1) Acute CHF Status: Acute (2) Decubitus ulcer Status: Acute (3) Pneumonitis Status: Acute Date of Service: Nov 09, 2024 Billing Provider: NEEL PALMA MD Common Visit Codes: [id number] INP/OBS CARE (MOD) NEEL PALMA MD Nov 09, 2024 10:43
[2024-11-09] MEDS ORDERED: ONDANSETRON HCL 4 MG/2 ML VIAL IV PRN (11:30)
[2024-11-09 12:36] LABS: Urine Amorphous Crystal FEW /hpf (None Seen); Urine Protein, UAD 1+ (Negative)
[2024-11-09] MEDS: SODIUM CHLOR 0.9% PF (SALINE LOCK) 10ML VIAL/SYR IV SCH (14:11)
[2024-11-09 15:13] VITALS: BP 101/56; PULSE 72; RESP 16; TEMP 97.5; O2SAT 97
[2024-11-09 16:30] VITALS: BP 101/56; PULSE 72; RESP 16; TEMP 97.5; O2SAT 97
[2024-11-09 17:00] VITALS: BP 142/71; PULSE 84; RESP 16; TEMP 97; O2SAT 97
[2024-11-09] MEDS: RIVAROXABAN 15 MG TAB PO SCH (18:00)
[2024-11-09] MEDS: FUROSEMIDE 40 MG/4 ML VIAL IV SCH (19:20)
[2024-11-09 20:00] VITALS: PULSE 104; PULSE 105; RESP 18; O2SAT 92
[2024-11-09 21:00] VITALS: BP 126/81; PULSE 104; RESP 18; TEMP 98; O2SAT 92
[2024-11-09] MEDS: HYDROcodone-ACET 5/325MG TAB PO PRN (23:17)
[2024-11-10] VITALS (11 sets, daily range): BP systolic 112–143; BP diastolic 58–86; PULSE 79–106; RESP 16–26; TEMP 97.9–98.2; O2SAT 95–97
[2024-11-10] MEDS: DOCUSATE SOD 100 MG CAP PO PRN (06:05)
[2024-11-10 07:47] LABS: Hemoglobin 12.5 g/dL (13.5-17.5); Nucleated Red Blood Cells % 0.0 %
[2024-11-10 07:49] LABS: Hematocrit 37.9 % (41.0-53.0); Mean Corpuscular Hemoglobin 33.3 pg (28.0-32.0); Mean Corpuscular Volume 100.8 fL (80.0-100.0)
[2024-11-10 08:01] LABS: Alanine Aminotransferase 36 U/L (7-40); Albumin 3.8 g/dL (3.2-4.8); Alkaline Phosphatase 238 U/L (46-116); Anion Gap 9 (5-15); BUN/Creatinine Ratio 27.1 (10.0-20.0); Blood Urea Nitrogen 35 mg/dL (9-23); Calcium 8.9 mg/dL (8.7-10.4); Carbon Dioxide 32 mmol/L (20-31); Chloride 99 mmol/L (98-107); Glucose 83 mg/dL (74-106); Magnesium 2.5 mg/dL (1.6-2.6); Potassium 4.0 mmol/L (3.5-5.1); Sodium 140 mmol/L (136-145); Total Protein 6.5 g/dL (5.7-8.2)
[2024-11-10 08:02] LABS: Bilirubin, Total 1.0 mg/dL (0.2-1.0)
[2024-11-10] MEDS: EMPAGLIFLOZIN 10 MG TAB PO SCH (10:00)
[2024-11-10] MEDS ORDERED: METOPROLOL TARTRATE 25 MG TAB PO SCH (10:00)
[2024-11-10] MEDS: SPIRONOLACTONE 25 MG TAB PO SCH (10:05)
[2024-11-10] MEDS: ACETAMINOPHEN 325 MG TAB PO PRN (10:06)
--- NOTE | 2024-11-10 11:02 | DVHINCON2 ---
Date of service: Nov 10, [address] Jackson Reason for Consultation Acute kidney injury History of Present Illness Patient is a 84-year-old male with past medical history significant for AFib, arthritis, CHF and PE is admitted for generalized weakness for three days. On admission patient found to have elevated BUN and creatinine nephrology consulted for acute kidney injury Past Medical History PAST MEDICAL HISTORY: AFIB, Arthritis, CHF, PE Past Surgical History Surgical History: Hernia Repair, Tonsillectomy Allergies: Coded Allergies: Empagliflozin (Verified Allergy, Severe, 11/10/24) stops breathing Sulfa Antibiotics (Verified Allergy, Severe, 05/08/24) Sulfabenzamide (Verified Allergy, Intermediate, 05/08/24) Sulfacetamide (Verified Allergy, Intermediate, 05/08/24) Sulfathiazole (Verified Allergy, Intermediate, 05/08/24) Sacubitril (Unverified Allergy, Unknown, SOB Weakness , 08/21/24) Per pt report Valsartan (Unverified Allergy, Unknown, SOB Weakness , 08/21/24) Per pt report Metoprolol (Verified Adverse Reaction, Severe, 07/12/24) "don't feel very good" per patient Sitagliptin (Verified Adverse Reaction, Severe, 07/12/24) Pt states it made him "feel not very good" Home Meds Active Scripts Senna (Senna) 8.6 Mg Tab, 8.6 MG PO DAILYP PRN for 30 Days, #30 TAB Prov:ROSALEE ZULETA MD 10/30/24 Doxycycline Monohydrate (Doxycycline Monohydrate) 100 Mg Cap, 1 CAP PO BID for 5 Days, #10 CAP Prov:ROSALEE ZULETA MD 10/30/24 Prednisone (Prednisone) 20 Mg Tab, 40 MG PO DAILY for 3 Days, #6 MG Prov:ROSALEE ZULETA MD 10/30/24 Hydroxychloroquine Sulfate (Hydroxychloroquine Sulfat) 200 Mg Tab, 200 MG PO DAILY, #30 TAB 5 Refills Prov:CONNIE COLON MD 07/01/24 Hydrocodone-Acetaminophen (Hydrocodone Bitartrate/AC 5-325 mg) 1 Tab Tab, 1 TAB PO Q6HPRN PRN, #20 TAB Prov:CONNIE COLON MD 07/01/24 Rivaroxaban (XARELTO) 20 Mg Tab, 1 TAB PO QPM, #30 TAB 5 Refills Prov:CONNIE COLON MD 07/01/24 Albuterol Sulfate (VENTOLIN MDI) 90 Mcg Ih, 90 MCG IN QID PRN, #1 INH Prov:RAY CORCORAN MD 06/17/24 Spironolactone (Aldactone) 25 Mg Tab, 1 TAB PO DAILY, #30 TAB 5 Refills Prov:HERBIE LEI MD 05/11/24 Furosemide (Lasix) 40 Mg Tab, 40 MG PO DAILY for 30 Days, #30 TAB 5 Refills Prov:HERBIE LEI MD 05/11/24 Metoprolol Succinate (Metoprolol Succinate Er) 25 Mg Tab, 1 TAB PO DAILY, #30 TAB 1 Refill Prov:ZEENAT PRATT MD 04/20/24 Empagliflozin (Jardiance) 10 Mg Tab, 10 MG PO DAILY for 30 Days, #30 TAB 1 Refill Prov:ZEENAT PRATT MD 04/20/24 Epinephrine (Anaphylaxis) (Auvi-Q) 0.1 Mg/0.1 Ml Inj, 0.1 MG IJ O PRN for 1 Day, #1 INJ Prov:MARCELO TOWNSEND MD 09/09/23 Reported Medications Zolpidem Tartrate (Ambien) 10 Mg Tab, 1 TAB PO QPM 09/20/23 Tamsulosin Hcl (Flomax) 0.4 Mg Cap, 0.4 MG PO DAILY, CAP 09/04/23 Current Medications Current Medications Medications (Trade) Dose Ordered Sig/Louie Route PRN Reason Start Time Stop Time Status Last Admin Ceftriaxone Sodium 50 ml @ 100 mls/hr DAILY@09 IV 11/10/24 09:00 11/10/24 10:27 Azithromycin 250 ml @ 125 mls/hr DAILY IV 11/10/24 10:00 11/10/24 11:51 Furosemide (Lasix Injection) 40 mg BIDD IV 11/09/24 18:00 11/09/24 19:20 Empaglifozin (Jardiance) 10 mg DAILY PO 11/10/24 10:00 Hold Rivaroxaban (Xarelto Tablet) 15 mg QPM PO 11/09/24 18:00 Spironolactone (Aldactone) 25 mg DAILY PO 11/10/24 10:00 8/22/25 10:05 Tamsulosin HCl (Flomax) 0.4 mg DAILY PO 11/10/24 10:00 11/10/24 11:48 Metoprolol Tartrate (Lopressor Tablet) 25 mg DAILY PO 11/10/24 10:00 Hold Sodium Chloride (Saline Lock Ns) 10 ml Q8HR IV 11/09/24 14:00 11/10/24 06:06 Lorazepam (Ativan Tablet) 0.5 mg Q8HP PRN PO ANXIETY 11/10/24 10:30 Family History: Alcoholism G8 FATHER, Onset:Unknown (patient states his father left when he was a child and doesnt know much about him) FH: atrial fibrillation G8 MOTHER, Onset:60 years & older FH: migraines G8 MOTHER GERD G8 MOTHER, Onset:60 years & older Hypertension G8 MOTHER, Onset:50's - 60 Review of Systems All 12 item review of systems reviewed with the patient nonsignificant except what is mentioned in the history of present illness H&P Exam Vital Signs/I&O Vital Sign Date Time Temp Pulse Resp B/P (MAP) Pulse Ox O2 Delivery O2 Flow Rate FiO2 11/10/24 09:57 98.2 91 26 114/68 (83) 97 98.2 11/10/24 08:57 Room Air* 0 21 Intake and Output 11/09/24 11/10/24 19:00 07:00 Intake Total 1250 ml 100 ml Output Total 1400 ml Balance 1250 ml -1300 ml Intake Oral 200 ml 100 ml IV Total 1050 ml Output Urine Total 1400 ml # Voids 2 # Bowel Movements 1 3 Physical Exam Patient is awake alert appeared in no acute distress Lungs clear to auscultation bilaterally Cardiac exam regular rate and rhythm GI soft nontender was normal Extremity 1+ edema bilaterally Neuro nonfocal Labs/Diagnostic Data Labs/Diagnostic Data Laboratory Tests Test 11/10/24 06:34 11/09/24 11:52 11/09/24 07:04 11/09/24 06:44 Range/Units White Blood Count 9.5 10.5 4.4-10.8 10^3/uL Red Blood Count 3.76 L 3.69 L 4.5-5.90 10^6/uL Hemoglobin 12.5 L 12.0 L 13.5-17.5 g/dL Hematocrit 37.9 L 37.2 L 41.0-53.0 % Mean Corpuscular Volume 100.8 H 100.8 H 80.0-100.0 fL Mean Corpuscular Hemoglobin 33.3 H 32.5 H 28.0-32.0 pg Mean Corpuscular Hemoglobin Concent 33.1 32.2 32.0-36.0 g/dL Red Cell Distribution Width 14.4 H 14.5 H 11.8-14.3 % Platelet Count 209 221 140-450 10^3/uL Mean Platelet Volume 7.7 7.3 6.9-10.8 fL Neutrophils (%) (Auto) 83.9 H 85.6 H 37.0-80.0 % Lymphocytes (%) (Auto) 9.4 L 6.4 L 10.0-50.0 % Monocytes (%) (Auto) 6.3 7.3 0.0-12.0 % Eosinophils (%) (Auto) 0.2 0.4 0.0-7.0 % Basophils (%) (Auto) 0.2 0.3 0.0-2.0 % Neutrophils # (Auto) 8.0 9.0 H 1.6-8.6 10 ^3/uL Lymphocytes # (Auto) 0.9 0.7 0.4-5.4 10 ^3/uL Monocytes # (Auto) 0.6 0.8 0-1.3 10 ^3/uL Eosinophils # (Auto) 0 0 0-0.8 10 ^3/uL Basophils # (Auto) 0 0 0-0.2 10 ^3/uL Nucleated Red Blood Cells 0.0 0.1 % Sodium Level 140 140 136-145 mmol/L Potassium Level 4.0 3.9 3.5-5.1 mmol/L Chloride Level 99 98 98-107 mmol/L Carbon Dioxide Level 32 H 36 H 20-31 mmol/L Anion Gap 9 6 5-15 Blood Urea Nitrogen 35 H 38 H 9-23 mg/dL Creatinine 1.29 1.39 H 0.700-1.30 mg/dL Glomerular Filtration Rate Calc 54 49 >90 mL/min BUN/Creatinine Ratio 27.1 H 27.3 H 10.0-20.0 Serum Glucose 83 92 74-106 mg/dL Calcium Level 8.9 8.8 8.7-10.4 mg/dL Magnesium Level 2.5 1.6-2.6 mg/dL Total Bilirubin 1.0 0.2-1.0 mg/dL Aspartate Amino Transferase (AST) 35 13-40 U/L Alanine Aminotransferase (ALT) 36 7-40 U/L Alkaline Phosphatase 238 H 46-116 U/L Total Protein 6.5 5.7-8.2 g/dL Albumin 3.8 3.2-4.8 g/dL Urine Color Yellow Yellow Urine Clarity Cloudy H Clear Urine pH 7.0 5.0-9.0 Urine Specific [place] 1.021 1.001-1.035 Urine Protein 1+ H Negative Urine Ketones Negative Negative Urine Blood Negative Negative /uL Urine Nitrite Negative Negative Urine Bilirubin Negative Negative Urine Urobilinogen Normal Negative mg/dL Urine Leukocyte Esterase Negative Negative /uL Urine RBC 3 0 - 3 /hpf Urine Microscopic WBC 2 0-3 /HPF Urine Squamous Epithelial Cells Few <5 /hpf Urine Amorphous Crystals Few None Seen /hpf Urine Bacteria None seen None Seen /hpf Urine Glucose Normal Normal mg/dL POC Glucose 102 70-106 mg/dl Troponin I High Sensitivity 29 </=54 ng/L C-Reactive Protein High Sensitivity 2.26 H <1.0 mg/dL B-Type Natriuretic Peptide 285.73 0-100 pg/mL Assessment Acute kidney injury superimposed Chronic Kidney Disease secondary hemodynamic mediated Atrial fibrillation with RVR Congestive heart failure exacerbation Hypertension Anemia of chronic kidney disease Recommendations Closely monitor fluid and electrolytes Avoid nephrotoxic medication Strict I&Os I agree with diuresis Check urine electrolytes and protein excretion Check kidney ultrasound Cardiology consult Blood pressure control We will continue to follow Patient seen and examined by myself. I discussed my plan of care with the patient and the primary nurse at the bedside I would like to thank Dr. Jackson for the consult, will follow up Plan discussed with: Patient TANIA MCKENZIE MD Nov 10, 2024 11:02
[2024-11-10] MEDS: TAMSULOSIN HYDROCHLORIDE 0.4 MG CAP PO SCH (11:48)
[2024-11-10] MEDS: AZITHROMYCIN 500MG/ 250ML 250 ML IV SCH (11:51)
--- NOTE | 2024-11-10 11:56 | DVH ---
INDICATION: audra TECHNIQUE: Multiple real-time sonographic images of the kidneys and bladder were obtained. COMPARISON: US AAA SCREENING on DOS: 08/22/24, US ABDOMEN COMPLETE SONOGRAM on DOS: 07/29/22 FINDINGS: The right kidney measures 8 cm in length, which is normal in size. There is normal echogeni city of the right kidney. No hydronephrosis. The left kidney measures 8 cm in length, which is normal in size. There is normal echogenicity of the left kidney. No hydronephrosis. Small right pleural effusion. Prostate measures 35 cc with echogenic possible calcification measuring 9 mm. IMPRESSION: 1. Normal sonographic appearance of the kidneys. No hydronephrosis. 2. Small right pleural effusion. Prostate measures 35 cc with echogenic possible calcification measur ing 9 mm.
--- NOTE | 2024-11-10 12:23 | DVHPN2 ---
Subjective The patient is seen and examined at bedside. No complaint today. Reviewed: Care Plan, H&P, Labs, Medications, Previous Orders, Radiology Changes from previous H/P or p: No Changes Objective Vitals Vital Signs Date Time Temp Pulse Resp B/P (MAP) Pulse Ox O2 Delivery O2 Flow Rate FiO2 11/10/24 09:57 98.2 91 26 114/68 (83) 97 98.2 11/10/24 08:57 Room Air* 0 21 Intake/Output Intake and Output 11/10/24 07:00 Intake Total 1350 ml Output Total 1400 ml Balance -50 ml Intake Oral 300 ml IV Total 1050 ml Output Urine Total 1400 ml # Voids 2 # Bowel Movements 4 General Appearance: Alert, Cooperative, mild distress HEENT: Atraumatic, PERRLA, EOMI, Mucous membr. moist/pink Neck: Supple Lungs: Clear to auscultation, Other (Decreased breath sounds bilateral with wheezing) Cardiovascular: Regular rate, Normal S1, Normal S2, No murmurs, Gallops, Rubs Abdomen: Normal bowel sounds, Soft, No tenderness Neuro: Cranial nerves 3-12 NL Psych/Mental Status: Mental status NL Medications Current Medications Medications Dose Ordered Sig/Louie Route Start Time Stop Time Status Last Admin Dose Admin Ceftriaxone Sodium 50 ml @ 100 mls/hr DAILY@09 IV 11/10/24 09:00 11/10/24 10:27 100 MLS/HR Azithromycin 250 ml @ 125 mls/hr DAILY IV 11/10/24 10:00 11/10/24 11:51 125 MLS/HR Furosemide 40 mg BIDD IV 11/09/24 18:00 11/09/24 19:20 40 MG Empaglifozin 10 mg DAILY PO 11/10/24 10:00 Hold Rivaroxaban 15 mg QPM PO 11/09/24 18:00 Sennosides 8.6 mg DAILYP PRN PO 11/09/24 11:30 Spironolactone 25 mg DAILY PO 11/10/24 10:00 11/10/24 10:05 25 MG Tamsulosin HCl 0.4 mg DAILY PO 11/10/24 10:00 11/10/24 11:48 0.4 MG Metoprolol Tartrate 25 mg DAILY PO 11/10/24 10:00 Hold Sodium Chloride 10 ml Q8HR IV 11/09/24 14:00 11/10/24 06:06 10 ML Docusate Sodium 100 mg BIDPRN PRN PO 11/09/24 11:30 11/10/24 06:05 100 MG Acetaminophen 650 mg Q6HP PRN PO 11/09/24 11:30 11/10/24 10:06 650 MG Acetaminophen/ Hydrocodone Bitart 1 tab Q4HP PRN PO 11/09/24 11:30 11/09/24 23:17 1 TAB Ondansetron HCl 4 mg Q4HP PRN IV 11/09/24 11:30 Lorazepam 0.5 mg Q8HP PRN PO 11/10/24 10:30 Laboratory Results Laboratory Tests 11/10/24 06:34 Chemistry Test 11/10/24 06:34 Albumin 3.8 g/dL (3.2-4.8) Calcium Level 8.9 mg/dL (8.7-10.4) Magnesium Level Pending Phosphorus Level Pending Total Protein 6.5 g/dL (5.7-8.2) LFT Test 11/10/24 06:34 Alanine Aminotransferase (ALT) 36 U/L (7-40) Alkaline Phosphatase 238 U/L (46-116) H Aspartate Amino Transferase (AST) 35 U/L (13-40) Total Bilirubin 1.0 mg/dL (0.2-1.0) Urinalysis Test 11/09/24 11:52 Urine Color Yellow (Yellow) Urine Clarity Cloudy (Clear) H Urine pH 7.0 (5.0-9.0) Urine Specific [place] 1.021 (1.001-1.035) Urine Protein 1+ (Negative) H Urine Ketones Negative (Negative) Urine Blood Negative /uL (Negative) Urine Nitrite Negative (Negative) Urine Bilirubin Negative (Negative) Urine Urobilinogen Normal mg/dL (Negative) Urine Leukocyte Esterase Negative /uL (Negative) Urine RBC 3 /hpf (0 - 3) Urine Microscopic WBC 2 /HPF (0-3) Urine Squamous Epithelial Cells Few /hpf (<5) Urine Amorphous Crystals Few /hpf (None Seen) Urine Bacteria None seen /hpf (None Seen) Urine Glucose Normal mg/dL (Normal) Labs and/or images reviewed: Labs reviewed by me Assessment/Plan Assessment/Plan Pressure ulcer Generalized fatigue Lower lung opacity rule out pneumonia Atrial fibrillation Anxiety Continuing current management. Continuing with wound care We will give Ativan 0.5 mg p.o. Q eight hours p.r.n. for anxiety Continuing IV antibiotics This medical document was created using an electronic medical record system with [employer] computerized dictation system. Although this document has been carefully reviewed, there may still be some phonetic and typographical errors. These areas are purely typographical due to imperfections of the software programs, and do not reflect any compromise in the patient's medical care. Plan discussed with: Patient My Orders Orders - CONNIE COLON MD Procedure Category Date Status Time Lorazepam Tablet PHA 11/10/24 In Process (Ativan Tablet) 10:30 Date of Service: Nov 10, 2024 Billing Provider: CONNIE COLON MD Common Visit Codes: [id number] INP/OBS CARE(HIGH) CONNIE COLON MD Nov 10, 2024 12:23
[2024-11-10] MEDS: LORazepam 0.5 MG TAB PO PRN (13:21)
[2024-11-10 13:32] LABS: Magnesium 2.5 mg/dL (1.6-2.6)
[2024-11-10 16:46] LABS: Urine Protein, UAD 1+ (Negative)
[2024-11-10 16:54] LABS: Protein, Urine 63.2 mg/dL (1-14)
[2024-11-11] VITALS (9 sets, daily range): BP systolic 108–129; BP diastolic 53–74; PULSE 77–109; RESP 17–23; TEMP 97.6–98.4; O2SAT 92–99
[2024-11-11 07:22] LABS: Hematocrit 35.6 % (41.0-53.0); Hemoglobin 12.0 g/dL (13.5-17.5); Mean Corpuscular Hemoglobin 33.7 pg (28.0-32.0); Mean Corpuscular Volume 99.9 fL (80.0-100.0); Nucleated Red Blood Cells % 0.2 %
[2024-11-11 07:36] LABS: Alanine Aminotransferase 33 U/L (7-40); Alkaline Phosphatase 231 U/L (46-116); Anion Gap 7 (5-15); BUN/Creatinine Ratio 28.3 (10.0-20.0); Bilirubin, Total 0.6 mg/dL (0.2-1.0); Blood Urea Nitrogen 39 mg/dL (9-23); Calcium 9.0 mg/dL (8.7-10.4); Carbon Dioxide 31 mmol/L (20-31); Chloride 102 mmol/L (98-107); Glucose 79 mg/dL (74-106); Magnesium 2.5 mg/dL (1.6-2.6); Potassium 4.3 mmol/L (3.5-5.1); Sodium 140 mmol/L (136-145); Total Protein 5.9 g/dL (5.7-8.2)
[2024-11-11 07:39] LABS: Albumin 3.5 g/dL (3.2-4.8)
--- NOTE | 2024-11-11 10:15 | DVHPN2 ---
Progress Note Date Seen: Nov 11, 2024 Medical Necessity Reason Pt with a Central, PICC or Fol: No Subjective Patient reports: No new complaints Other Systems: Patient seen and examined by myself today in follow-up Objective vital signs Vital Sign Date Time Temp Pulse Resp B/P (MAP) Pulse Ox O2 Delivery O2 Flow Rate FiO2 11/11/24 06:02 126/74 11/11/24 05:52 77 19 96 11/11/24 01:02 98.0 98.0 11/10/24 20:00 Room Air* 0 21 Total Intake and Output 11/10/24 11/10/24 11/11/24 15:00 23:00 07:00 Intake Total 900 ml 200 ml Output Total 750 ml 550 ml Balance 150 ml -350 ml medications Current Medications Medications Dose Ordered Sig/Louie Route Start Time Stop Time Status Last Admin Dose Admin Ceftriaxone Sodium 50 ml @ 100 mls/hr DAILY@09 IV 11/10/24 09:00 11/11/24 09:06 100 MLS/HR Azithromycin 250 ml @ 125 mls/hr DAILY IV 11/10/24 10:00 11/10/24 11:51 125 MLS/HR Furosemide 40 mg BIDD IV 11/09/24 18:00 11/11/24 06:02 40 MG Empaglifozin 10 mg DAILY PO 11/10/24 10:00 Hold Rivaroxaban 15 mg QPM PO 11/09/24 18:00 11/10/24 19:05 15 MG Sennosides 8.6 mg DAILYP PRN PO 11/09/24 11:30 Spironolactone 25 mg DAILY PO 11/10/24 10:00 11/11/24 09:06 25 MG Tamsulosin HCl 0.4 mg DAILY PO 11/10/24 10:00 11/11/24 09:06 0.4 MG Metoprolol Tartrate 25 mg DAILY PO 11/10/24 10:00 Hold Sodium Chloride 10 ml Q8HR IV 11/09/24 14:00 11/11/24 06:02 10 ML Docusate Sodium 100 mg BIDPRN PRN PO 11/09/24 11:30 11/10/24 06:05 100 MG Acetaminophen 650 mg Q6HP PRN PO 11/09/24 11:30 11/10/24 21:12 650 MG Acetaminophen/ Hydrocodone Bitart 1 tab Q4HP PRN PO 11/09/24 11:30 11/11/24 06:02 1 TAB Ondansetron HCl 4 mg Q4HP PRN IV 11/09/24 11:30 Lorazepam 0.5 mg Q8HP PRN PO 11/10/24 10:30 11/11/24 01:06 0.5 MG Examination: LUNGS:Normal, CVS:Normal, MSK:Normal laboratory and microbiology Laboratory Tests 11/11/24 05:49 Test 11/11/24 05:49 Range/Units Serum Glucose 79 74-106 mg/dL Problem List/Assessment/Plan Problem List/Assessment/Plan Acute kidney injury superimposed Chronic Kidney Disease stage IIIA secondary hemodynamic mediated Atrial fibrillation with RVR Congestive heart failure exacerbation Hypertension Anemia of chronic kidney disease Mild proteinuria, urine protein creatinine ratio 1 Recommendations Kidney function stable Chronic Kidney Disease stage IIIA Strict I&Os I agree with diuresis kidney ultrasound reported within normal limit Cardiology consult Blood pressure control We will continue to follow Plan discussed with: Patient My Orders My Orders Orders - TANIA MCKENZIE MD Procedure Category Date Status Time Kidney US 11/10/24 Resulted 11:03 Dietary Evaluation Review Comments: 1) Ensure Enlive 240ml BID 2) Monitor PO intake, lab values, weight trend, and I/O Expected Outcomes/Goals: To gain/maintain weight Wound to improve Fu 3-5 days TANIA MCKENZIE MD Nov 11, 2024 10:15
--- NOTE | 2024-11-11 15:21 | DVHPN2 ---
Subjective The patient is seen and examined at bedside. No complaint today. Reviewed: Care Plan, H&P, Labs, Medications, Previous Orders, Radiology Changes from previous H/P or p: No Changes Objective Vitals Vital Signs Date Time Temp Pulse Resp B/P (MAP) Pulse Ox O2 Delivery O2 Flow Rate FiO2 11/11/24 12:00 97.6 109 23 109/63 (78) 93 97.6 11/11/24 07:45 Room Air* 0 21 Intake/Output Intake and Output 11/11/24 07:00 Intake Total 1100 ml Output Total 1300 ml Balance -200 ml Intake Oral 800 ml IV Total 300 ml Output Urine Total 1300 ml # Bowel Movements 1 General Appearance: Alert, Cooperative, No acute distress HEENT: Atraumatic, PERRLA, EOMI, Mucous membr. moist/pink Neck: Supple Lungs: Clear to auscultation, Normal air movement Cardiovascular: Regular rate, Normal S1, No murmurs, Gallops, Rubs Abdomen: Normal bowel sounds, Soft, No tenderness Neuro: Cranial nerves 3-12 NL Psych/Mental Status: Mental status NL Medications Current Medications Medications Dose Ordered Sig/Louie Route Start Time Stop Time Status Last Admin Dose Admin Ceftriaxone Sodium 50 ml @ 100 mls/hr DAILY@09 IV 11/10/24 09:00 11/11/24 09:06 100 MLS/HR Azithromycin 250 ml @ 125 mls/hr DAILY IV 11/10/24 10:00 11/11/24 10:27 125 MLS/HR Furosemide 40 mg BIDD IV 11/09/24 18:00 11/11/24 06:02 40 MG Empaglifozin 10 mg DAILY PO 11/10/24 10:00 Hold Rivaroxaban 15 mg QPM PO 11/09/24 18:00 11/10/24 19:05 15 MG Sennosides 8.6 mg DAILYP PRN PO 11/09/24 11:30 Spironolactone 25 mg DAILY PO 11/10/24 10:00 11/11/24 09:06 25 MG Tamsulosin HCl 0.4 mg DAILY PO 11/10/24 10:00 11/11/24 09:06 0.4 MG Metoprolol Tartrate 25 mg DAILY PO 11/10/24 10:00 Hold Sodium Chloride 10 ml Q8HR IV 11/09/24 14:00 11/11/24 13:46 10 ML Docusate Sodium 100 mg BIDPRN PRN PO 11/09/24 11:30 11/10/24 06:05 100 MG Acetaminophen 650 mg Q6HP PRN PO 11/09/24 11:30 11/10/24 21:12 650 MG Acetaminophen/ Hydrocodone Bitart 1 tab Q4HP PRN PO 11/09/24 11:30 11/11/24 06:02 1 TAB Ondansetron HCl 4 mg Q4HP PRN IV 11/09/24 11:30 Lorazepam 0.5 mg Q8HP PRN PO 11/10/24 10:30 11/11/24 12:57 0.5 MG Laboratory Results Laboratory Tests 11/11/24 05:49 Chemistry Test 11/11/24 05:49 Albumin 3.5 g/dL (3.2-4.8) Calcium Level 9.0 mg/dL (8.7-10.4) Magnesium Level 2.5 mg/dL (1.6-2.6) Total Protein 5.9 g/dL (5.7-8.2) LFT Test 11/11/24 05:49 Alanine Aminotransferase (ALT) 33 U/L (7-40) Alkaline Phosphatase 231 U/L (46-116) H Aspartate Amino Transferase (AST) 34 U/L (13-40) Total Bilirubin 0.6 mg/dL (0.2-1.0) Urinalysis Test 11/09/24 11:52 11/10/24 15:19 Urine Amorphous Crystals Few /hpf (None Seen) Urine Color Yellow (Yellow) Urine Clarity Clear (Clear) Urine pH 5.5 (5.0-9.0) Urine Specific [place] 1.022 (1.001-1.035) Urine Protein 1+ (Negative) H Urine Ketones Negative (Negative) Urine Blood Negative /uL (Negative) Urine Nitrite Negative (Negative) Urine Bilirubin Negative (Negative) Urine Urobilinogen Normal mg/dL (Negative) Urine Leukocyte Esterase Negative /uL (Negative) Urine RBC 2 /hpf (0 - 3) Urine Microscopic WBC 2 /HPF (0-3) Urine Squamous Epithelial Cells None seen /hpf (<5) Urine Bacteria None seen /hpf (None Seen) Urine Creatinine 58.40 mg/dL (30.0-125.0) Urine Protein/Creatinine Ratio 1.08 Urine Sodium 49 mmol/L (40-220) Urine Glucose Normal mg/dL (Normal) Urine Total Protein 63.2 mg/dL (1-14) H Microbiology Microbiology Date/Time Source Procedure Growth Status 11/10/24 10:04 Nose MRSA Screen - Final Complete Labs and/or images reviewed: Labs reviewed by me Assessment/Plan Assessment/Plan Pressure ulcer Generalized fatigue Lower lung opacity rule out pneumonia AFib Anxiety Continuing current management with Wound Care, continuing with Rocephin IV Continuing with atrial fibrillation medication Continuing with Ativan This medical document was created using an electronic medical record system with [employer] dictation system. Although this document has been carefully reviewed, there may still be some phonetic and typographical errors. These areas are purely typographical due to imperfections of the software programs, and do not reflect any compromise in the patient's medical care. Plan discussed with: Patient Date of Service: Nov 11, 2024 Billing Provider: CONNIE COLON MD Common Visit Codes: [id number] INP/OBS CARE(HIGH) CONNIE COLON MD Nov 11, 2024 15:21
[2024-11-12] VITALS (15 sets, daily range): BP systolic 98–166; BP diastolic 50–98; PULSE 76–113; RESP 16–25; TEMP 97–99.7; O2SAT 92–100
[2024-11-12] MEDS: MELATONIN 5 MG TAB PO ONE (02:41)
[2024-11-12 06:17] LABS: Hematocrit 36.6 % (41.0-53.0); Hemoglobin 12.3 g/dL (13.5-17.5); Mean Corpuscular Hemoglobin 33.6 pg (28.0-32.0); Mean Corpuscular Volume 100.0 fL (80.0-100.0); Nucleated Red Blood Cells % 0.0 %
[2024-11-12 06:30] LABS: Alanine Aminotransferase 33 U/L (7-40); Anion Gap 7 (5-15); BUN/Creatinine Ratio 25.9 (10.0-20.0); Calcium 9.2 mg/dL (8.7-10.4); Chloride 101 mmol/L (98-107); Glucose 83 mg/dL (74-106); Magnesium 2.6 mg/dL (1.6-2.6); Sodium 140 mmol/L (136-145); Total Protein 6.5 g/dL (5.7-8.2)
[2024-11-12 06:31] LABS: Albumin 3.6 g/dL (3.2-4.8); Bilirubin, Total 0.7 mg/dL (0.2-1.0)
[2024-11-12 06:39] LABS: Alkaline Phosphatase 246 U/L (46-116); Blood Urea Nitrogen 37 mg/dL (9-23); Carbon Dioxide 32 mmol/L (20-31); Potassium 5.3 mmol/L (3.5-5.1)
--- NOTE | 2024-11-12 10:58 | DVHPN2 ---
Progress Note Date Seen: Nov 12, 2024 Medical Necessity Reason Pt with a Central, PICC or Fol: No Subjective Review of Systems: RESPIRATORY:Abnormal Other Systems: Patient seen and examined by myself today in follow-up Objective vital signs Vital Sign Date Time Temp Pulse Resp B/P (MAP) Pulse Ox O2 Delivery O2 Flow Rate FiO2 11/12/24 09:00 97.0 76 18 117/63 (81) 98 97.0 11/12/24 08:00 Nasal Cannula* 3 32 Total Intake and Output 11/11/24 11/11/24 11/12/24 15:00 23:00 07:00 Intake Total 300 ml 590 ml 800 ml Output Total 1850 ml 225 ml Balance 300 ml -1260 ml 575 ml medications Current Medications Medications Dose Ordered Sig/Louie Route Start Time Stop Time Status Last Admin Dose Admin Ceftriaxone Sodium 50 ml @ 100 mls/hr DAILY@09 IV 11/10/24 09:00 11/12/24 09:09 100 MLS/HR Azithromycin 250 ml @ 125 mls/hr DAILY IV 11/10/24 10:00 11/12/24 10:30 125 MLS/HR Furosemide 40 mg BIDD IV 11/09/24 18:00 11/11/24 06:02 40 MG Empaglifozin 10 mg DAILY PO 11/10/24 10:00 Hold Rivaroxaban 15 mg QPM PO 11/09/24 18:00 11/11/24 17:35 15 MG Sennosides 8.6 mg DAILYP PRN PO 11/09/24 11:30 Spironolactone 25 mg DAILY PO 11/10/24 10:00 11/12/24 09:09 25 MG Tamsulosin HCl 0.4 mg DAILY PO 11/10/24 10:00 11/12/24 09:09 0.4 MG Metoprolol Tartrate 25 mg DAILY PO 11/10/24 10:00 Hold Sodium Chloride 10 ml Q8HR IV 11/09/24 14:00 11/12/24 06:31 10 ML Docusate Sodium 100 mg BIDPRN PRN PO 11/09/24 11:30 11/11/24 22:26 100 MG Acetaminophen 650 mg Q6HP PRN PO 11/09/24 11:30 11/10/24 21:12 650 MG Acetaminophen/ Hydrocodone Bitart 1 tab Q4HP PRN PO 11/09/24 11:30 11/11/24 17:35 1 TAB Ondansetron HCl 4 mg Q4HP PRN IV 11/09/24 11:30 Lorazepam 0.5 mg Q8HP PRN PO 11/10/24 10:30 11/11/24 22:26 0.5 MG Albuterol 2.5 mg Q4HPRN PRN NEB 11/12/24 02:45 Ipratropium [place] 0.5 mg Q4HPRN PRN NEB 11/12/24 02:45 Examination: LUNGS:Normal, CVS:Normal, MSK:Normal laboratory and microbiology Laboratory Tests 11/12/24 05:35 Test 11/12/24 05:35 Range/Units Serum Glucose 83 74-106 mg/dL Microbiology Date/Time Source Procedure Growth Status 11/10/24 10:04 Nose MRSA Screen - Final Complete Problem List/Assessment/Plan Problem List/Assessment/Plan Acute kidney injury superimposed Chronic Kidney Disease stage IIIA secondary hemodynamic mediated Acute on chronic respiratory failure Atrial fibrillation with RVR Congestive heart failure exacerbation Hypertension Anemia of chronic kidney disease Mild proteinuria, urine protein creatinine ratio 1 Recommendations Kidney function stable Chronic Kidney Disease stage IIIA Strict I&Os I agree with diuresis kidney ultrasound reported within normal limit Cardiology consult Blood pressure control We will continue to follow Plan discussed with: Patient Dietary Evaluation Review Comments: 1) Ensure Enlive 240ml BID 2) Monitor PO intake, lab values, weight trend, and I/O Expected Outcomes/Goals: To gain/maintain weight Wound to improve Fu 3-5 days TANIA MCKENZIE MD Nov 12, 2024 10:58
--- NOTE | 2024-11-12 13:20 | DVHPN2 ---
Subjective The patient is seen and examined at bedside. Very anxious today. Reviewed: Care Plan, H&P, Labs, Medications, Previous Orders, Radiology Changes from previous H/P or p: No Changes Objective Vitals Vital Signs Date Time Temp Pulse Resp B/P (MAP) Pulse Ox O2 Delivery O2 Flow Rate FiO2 11/12/24 12:59 97.0 91 18 115/75 (88) 100 97.0 11/12/24 10:00 Room Air 0.0 11/12/24 10:00 21 Intake/Output Intake and Output 11/12/24 07:00 Intake Total 1690 ml Output Total 2075 ml Balance -385 ml Intake Oral 1390 ml IV Total 300 ml Output Urine Total 2075 ml # Bowel Movements 3 General Appearance: Alert, Cooperative, No acute distress HEENT: Atraumatic, PERRLA, EOMI, Mucous membr. moist/pink Neck: Supple Lungs: Clear to auscultation, Normal air movement Cardiovascular: Regular rate, Normal S1, Normal S2, No murmurs, Gallops, Rubs Abdomen: Normal bowel sounds, Soft, No tenderness Neuro: Strength at 5/5 X4 ext Psych/Mental Status: Mental status NL Medications Current Medications Medications Dose Ordered Sig/Louie Route Start Time Stop Time Status Last Admin Dose Admin Ceftriaxone Sodium 50 ml @ 100 mls/hr DAILY@09 IV 11/10/24 09:00 11/12/24 09:09 100 MLS/HR Azithromycin 250 ml @ 125 mls/hr DAILY IV 11/10/24 10:00 11/12/24 10:30 125 MLS/HR Furosemide 40 mg BIDD IV 11/09/24 18:00 11/11/24 06:02 40 MG Empaglifozin 10 mg DAILY PO 11/10/24 10:00 Hold Rivaroxaban 15 mg QPM PO 11/09/24 18:00 11/11/24 17:35 15 MG Sennosides 8.6 mg DAILYP PRN PO 11/09/24 11:30 Spironolactone 25 mg DAILY PO 11/10/24 10:00 11/12/24 09:09 25 MG Tamsulosin HCl 0.4 mg DAILY PO 11/10/24 10:00 11/12/24 09:09 0.4 MG Metoprolol Tartrate 25 mg DAILY PO 11/10/24 10:00 Hold Sodium Chloride 10 ml Q8HR IV 11/09/24 14:00 11/12/24 06:31 10 ML Docusate Sodium 100 mg BIDPRN PRN PO 11/09/24 11:30 11/11/24 22:26 100 MG Acetaminophen 650 mg Q6HP PRN PO 11/09/24 11:30 11/10/24 21:12 650 MG Acetaminophen/ Hydrocodone Bitart 1 tab Q4HP PRN PO 11/09/24 11:30 11/11/24 17:35 1 TAB Ondansetron HCl 4 mg Q4HP PRN IV 11/09/24 11:30 Lorazepam 0.5 mg Q8HP PRN PO 11/10/24 10:30 11/11/24 22:26 0.5 MG Albuterol 2.5 mg Q4HPRN PRN NEB 11/12/24 02:45 Ipratropium [place] 0.5 mg Q4HPRN PRN NEB 11/12/24 02:45 Laboratory Results Laboratory Tests 11/12/24 05:35 Chemistry Test 11/12/24 05:35 Albumin 3.6 g/dL (3.2-4.8) Calcium Level 9.2 mg/dL (8.7-10.4) Magnesium Level 2.6 mg/dL (1.6-2.6) Total Protein 6.5 g/dL (5.7-8.2) LFT Test 11/12/24 05:35 Alanine Aminotransferase (ALT) 33 U/L (7-40) Alkaline Phosphatase 246 U/L (46-116) H Aspartate Amino Transferase (AST) 35 U/L (13-40) Total Bilirubin 0.7 mg/dL (0.2-1.0) Urinalysis Test 11/09/24 11:52 11/10/24 15:19 Urine Amorphous Crystals Few /hpf (None Seen) Urine Color Yellow (Yellow) Urine Clarity Clear (Clear) Urine pH 5.5 (5.0-9.0) Urine Specific [place] 1.022 (1.001-1.035) Urine Protein 1+ (Negative) H Urine Ketones Negative (Negative) Urine Blood Negative /uL (Negative) Urine Nitrite Negative (Negative) Urine Bilirubin Negative (Negative) Urine Urobilinogen Normal mg/dL (Negative) Urine Leukocyte Esterase Negative /uL (Negative) Urine RBC 2 /hpf (0 - 3) Urine Microscopic WBC 2 /HPF (0-3) Urine Squamous Epithelial Cells None seen /hpf (<5) Urine Bacteria None seen /hpf (None Seen) Urine Creatinine 58.40 mg/dL (30.0-125.0) Urine Protein/Creatinine Ratio 1.08 Urine Sodium 49 mmol/L (40-220) Urine Glucose Normal mg/dL (Normal) Urine Total Protein 63.2 mg/dL (1-14) H Microbiology Microbiology Date/Time Source Procedure Growth Status 11/10/24 10:04 Nose MRSA Screen - Final Complete Labs and/or images reviewed: Labs reviewed by me Assessment/Plan Assessment/Plan Pressure ulcer Generalized fatigue Lower lung opacity secondary to Gram-positive pneumonia Atrial fibrillation Anxiety Continuing current management. Continuing with IV Rocephin. I will add Zithromax to his regimen. Continuing with seen atrial fibrillation medication Continuing and anxiety med. I will increase Ativan to 1 mg p.o. Q eight p.r.n. for anxiety. Continuing wound care This medical document was created using an electronic medical record system with [employer] direct computerized dictation system. Although this document has been carefully reviewed, there may still be some phonetic and typographical errors. These areas are purely typographical due to imperfections of the software programs, and do not reflect any compromise in the patient's medical care. Plan discussed with: Patient Date of Service: Nov 12, 2024 Billing Provider: CONNIE COLON MD Common Visit Codes: [id number] INP/OBS CARE(HIGH) CONNIE COLON MD Nov 12, 2024 13:20
[2024-11-12] MEDS: SODIUM ZIRCONIUM CYCL 10 GM PAK PO ONE (14:53)
[2024-11-13] VITALS (11 sets, daily range): BP systolic 99–154; BP diastolic 49–88; PULSE 95–133; RESP 16–20; TEMP 97.9–98.8; O2SAT 92–98
[2024-11-13 07:26] LABS: Hematocrit 35.9 % (41.0-53.0); Hemoglobin 12.0 g/dL (13.5-17.5); Mean Corpuscular Hemoglobin 33.3 pg (28.0-32.0); Mean Corpuscular Volume 99.5 fL (80.0-100.0); Nucleated Red Blood Cells % 0.1 %
[2024-11-13 07:49] LABS: Alanine Aminotransferase 31 U/L (7-40); Albumin 3.6 g/dL (3.2-4.8); Anion Gap 8 (5-15); BUN/Creatinine Ratio 22.7 (10.0-20.0); Bilirubin, Total 0.9 mg/dL (0.2-1.0); Calcium 9.1 mg/dL (8.7-10.4); Carbon Dioxide 28 mmol/L (20-31); Chloride 101 mmol/L (98-107); Glucose 83 mg/dL (74-106); Magnesium 2.3 mg/dL (1.6-2.6); Potassium 4.8 mmol/L (3.5-5.1); Sodium 137 mmol/L (136-145); Total Protein 6.1 g/dL (5.7-8.2)
[2024-11-13 07:51] LABS: Alkaline Phosphatase 248 U/L (46-116); Blood Urea Nitrogen 25 mg/dL (9-23)
--- NOTE | 2024-11-13 11:36 | DVHPN2 ---
Progress Note Date Seen: Nov 13, 2024 Medical Necessity Reason Pt with a Central, PICC or Fol: No Subjective Patient reports: No new complaints Review of Systems: Deferred Objective vital signs Vital Sign Date Time Temp Pulse Resp B/P (MAP) Pulse Ox O2 Delivery O2 Flow Rate FiO2 11/13/24 10:00 94 Room Air 0.0 11/13/24 10:00 21 11/13/24 09:00 97.9 100 18 154/88 (110) 97.9 Total Intake and Output 11/12/24 11/12/24 11/13/24 15:00 23:00 07:00 Intake Total 518 ml 600 ml 200 ml Output Total 225 ml 200 ml Balance 518 ml 375 ml 0 ml medications Current Medications Medications Dose Ordered Sig/Louie Route Start Time Stop Time Status Last Admin Dose Admin Ceftriaxone Sodium 50 ml @ 100 mls/hr DAILY@09 IV 11/10/24 09:00 11/13/24 09:12 100 MLS/HR Azithromycin 250 ml @ 125 mls/hr DAILY IV 11/10/24 10:00 11/12/24 10:30 125 MLS/HR Furosemide 40 mg BIDD IV 11/09/24 18:00 11/11/24 06:02 40 MG Empaglifozin 10 mg DAILY PO 11/10/24 10:00 Hold Rivaroxaban 15 mg QPM PO 11/09/24 18:00 11/12/24 17:24 15 MG Sennosides 8.6 mg DAILYP PRN PO 11/09/24 11:30 Spironolactone 25 mg DAILY PO 11/10/24 10:00 11/13/24 09:13 25 MG Tamsulosin HCl 0.4 mg DAILY PO 11/10/24 10:00 11/13/24 09:12 0.4 MG Metoprolol Tartrate 25 mg DAILY PO 11/10/24 10:00 Hold Sodium Chloride 10 ml Q8HR IV 11/09/24 14:00 11/13/24 05:46 10 ML Docusate Sodium 100 mg BIDPRN PRN PO 11/09/24 11:30 11/12/24 13:58 100 MG Acetaminophen 650 mg Q6HP PRN PO 11/09/24 11:30 11/13/24 09:13 650 MG Acetaminophen/ Hydrocodone Bitart 1 tab Q4HP PRN PO 11/09/24 11:30 11/13/24 05:47 1 TAB Ondansetron HCl 4 mg Q4HP PRN IV 11/09/24 11:30 Lorazepam 0.5 mg Q8HP PRN PO 11/10/24 10:30 11/13/24 05:51 0.5 MG Albuterol 2.5 mg Q4HPRN PRN NEB 11/12/24 02:45 Ipratropium [place] 0.5 mg Q4HPRN PRN NEB 11/12/24 02:45 Melatonin 10 mg HS PRN PO 11/12/24 22:00 Hydroxychloroquine Sulfate 200 mg DAILY PO 11/13/24 10:00 11/13/24 09:13 200 MG Examination: GENERAL:Normal, LUNGS:Abnormal laboratory and microbiology Laboratory Tests 11/13/24 06:58 Test 11/13/24 06:58 Range/Units Serum Glucose 83 74-106 mg/dL Microbiology Date/Time Source Procedure Growth Status 11/12/24 00:13 Sputum Gram Stain - Final Resulted 11/12/24 00:13 Sputum Respiratory Culture - Preliminary Resulted 11/10/24 10:04 Nose MRSA Screen - Final Complete Problem List/Assessment/Plan Problem List/Assessment/Plan Acute kidney injury superimposed Chronic Kidney Disease stage IIIA secondary hemodynamic mediated Acute on chronic respiratory failure Atrial fibrillation with RVR Congestive heart failure exacerbation Hypertension Anemia of chronic kidney disease Mild proteinuria, urine protein creatinine ratio 1 recs hold jardiance better renal function on diuretics Plan discussed with: Patient Dietary Evaluation Review Comments: 1) Ensure Enlive 240ml BID 2) Monitor PO intake, lab values, weight trend, and I/O Expected Outcomes/Goals: To gain/maintain weight Wound to improve Fu 3-5 days LIANE MOSQUERA MD Nov 13, 2024 11:36
--- NOTE | 2024-11-13 12:06 | DVHPN2 ---
Subjective The patient is seen and examined at bedside. Very anxious today. Reviewed: Care Plan, H&P, Labs, Medications, Previous Orders, Radiology Changes from previous H/P or p: No Changes Objective Vitals Vital Signs Date Time Temp Pulse Resp B/P (MAP) Pulse Ox O2 Delivery O2 Flow Rate FiO2 11/13/24 10:00 94 Room Air 0.0 11/13/24 10:00 21 11/13/24 09:00 97.9 100 18 154/88 (110) 97.9 Intake/Output Intake and Output 11/13/24 07:00 Intake Total 1318 ml Output Total 425 ml Balance 893 ml Intake Oral 1018 ml IV Total 300 ml Output Urine Total 425 ml # Voids 1 General Appearance: Alert, Cooperative, No acute distress HEENT: Atraumatic, PERRLA, EOMI, Mucous membr. moist/pink Neck: Supple Lungs: Clear to auscultation, Normal air movement Cardiovascular: Regular rate, Normal S1, Normal S2, No murmurs, Gallops, Rubs Abdomen: Normal bowel sounds, Soft, No tenderness Neuro: Strength at 5/5 X4 ext Psych/Mental Status: Mental status NL Medications Current Medications Medications Dose Ordered Sig/Louie Route Start Time Stop Time Status Last Admin Dose Admin Ceftriaxone Sodium 50 ml @ 100 mls/hr DAILY@09 IV 11/10/24 09:00 11/13/24 09:12 100 MLS/HR Azithromycin 250 ml @ 125 mls/hr DAILY IV 11/10/24 10:00 11/12/24 10:30 125 MLS/HR Furosemide 40 mg BIDD IV 11/09/24 18:00 11/11/24 06:02 40 MG Empaglifozin 10 mg DAILY PO 11/10/24 10:00 Hold Rivaroxaban 15 mg QPM PO 11/09/24 18:00 11/12/24 17:24 15 MG Sennosides 8.6 mg DAILYP PRN PO 11/09/24 11:30 Spironolactone 25 mg DAILY PO 11/10/24 10:00 11/13/24 09:13 25 MG Tamsulosin HCl 0.4 mg DAILY PO 11/10/24 10:00 11/13/24 09:12 0.4 MG Metoprolol Tartrate 25 mg DAILY PO 11/10/24 10:00 Hold Sodium Chloride 10 ml Q8HR IV 11/09/24 14:00 11/13/24 05:46 10 ML Docusate Sodium 100 mg BIDPRN PRN PO 11/09/24 11:30 11/12/24 13:58 100 MG Acetaminophen 650 mg Q6HP PRN PO 11/09/24 11:30 11/13/24 09:13 650 MG Acetaminophen/ Hydrocodone Bitart 1 tab Q4HP PRN PO 11/09/24 11:30 11/13/24 05:47 1 TAB Ondansetron HCl 4 mg Q4HP PRN IV 11/09/24 11:30 Lorazepam 0.5 mg Q8HP PRN PO 11/10/24 10:30 11/13/24 05:51 0.5 MG Albuterol 2.5 mg Q4HPRN PRN NEB 11/12/24 02:45 Ipratropium [place] 0.5 mg Q4HPRN PRN NEB 11/12/24 02:45 Melatonin 10 mg HS PRN PO 11/12/24 22:00 Hydroxychloroquine Sulfate 200 mg DAILY PO 11/13/24 10:00 11/13/24 09:13 200 MG Laboratory Results Laboratory Tests 11/13/24 06:58 Chemistry Test 11/13/24 06:58 Albumin 3.6 g/dL (3.2-4.8) Calcium Level 9.1 mg/dL (8.7-10.4) Magnesium Level 2.3 mg/dL (1.6-2.6) Total Protein 6.1 g/dL (5.7-8.2) LFT Test 11/13/24 06:58 Alanine Aminotransferase (ALT) 31 U/L (7-40) Alkaline Phosphatase 248 U/L (46-116) H Aspartate Amino Transferase (AST) 31 U/L (13-40) Total Bilirubin 0.9 mg/dL (0.2-1.0) Urinalysis Test 11/09/24 11:52 11/10/24 15:19 Urine Amorphous Crystals Few /hpf (None Seen) Urine Color Yellow (Yellow) Urine Clarity Clear (Clear) Urine pH 5.5 (5.0-9.0) Urine Specific [place] 1.022 (1.001-1.035) Urine Protein 1+ (Negative) H Urine Ketones Negative (Negative) Urine Blood Negative /uL (Negative) Urine Nitrite Negative (Negative) Urine Bilirubin Negative (Negative) Urine Urobilinogen Normal mg/dL (Negative) Urine Leukocyte Esterase Negative /uL (Negative) Urine RBC 2 /hpf (0 - 3) Urine Microscopic WBC 2 /HPF (0-3) Urine Squamous Epithelial Cells None seen /hpf (<5) Urine Bacteria None seen /hpf (None Seen) Urine Creatinine 58.40 mg/dL (30.0-125.0) Urine Protein/Creatinine Ratio 1.08 Urine Sodium 49 mmol/L (40-220) Urine Glucose Normal mg/dL (Normal) Urine Total Protein 63.2 mg/dL (1-14) H Microbiology Microbiology Date/Time Source Procedure Growth Status 11/12/24 00:13 Sputum Gram Stain - Final Resulted 11/12/24 00:13 Sputum Respiratory Culture - Preliminary Resulted 11/10/24 10:04 Nose MRSA Screen - Final Complete Assessment/Plan Assessment/Plan Pressure ulcer Generalized fatigue Lower lung opacity secondary to Gram-positive pneumonia Atrial fibrillation Anxiety Continuing current management. Continuing with IV Rocephin. I will add Zithromax to his regimen. Continuing with seen atrial fibrillation medication Continuing and anxiety med. I will increase Ativan to 1 mg p.o. Q eight p.r.n. for anxiety. Continuing wound care This medical document was created using an electronic medical record system with [employer] direct computerized dictation system. Although this document has been carefully reviewed, there may still be some phonetic and typographical errors. These areas are purely typographical due to imperfections of the software programs, and do not reflect any compromise in the patient's medical care. Plan discussed with: Patient, Other (RN) My Orders Orders - CONNIE COLON MD Procedure Category Date Status Time Melatonin (Melatonin) PHA 11/12/24 In Process 22:00 Hydroxychloroquine PHA 11/13/24 In Process Tablet (Plaquenil Tab 10:00 Date of Service: Nov 13, 2024 Billing Provider: CONNIE COLON MD Common Visit Codes: [id number] INP/OBS CARE(HIGH) CONNIE COLON MD Nov 13, 2024 12:05
[2024-11-13] MEDS: FUROSEMIDE 40 MG/4 ML VIAL IV SCH (17:03)
[2024-11-13] MEDS: MELATONIN 5 MG TAB PO PRN (22:25)
[2024-11-14] VITALS (10 sets, daily range): BP systolic 85–111; BP diastolic 44–65; PULSE 69–95; RESP 15–20; TEMP 97.6–99.1; O2SAT 92–98
[2024-11-14 02:34] LABS: Hematocrit 35.5 % (41.0-53.0); Hemoglobin 11.9 g/dL (13.5-17.5); Mean Corpuscular Hemoglobin 33.1 pg (28.0-32.0); Mean Corpuscular Volume 99.1 fL (80.0-100.0); Nucleated Red Blood Cells % 0.1 %
[2024-11-14] MEDS: SENNA 8.6 MG TAB PO PRN (10:17)
[2024-11-14] MEDS: SODIUM CHLORIDE 0.9% 500 ML IV ONE (11:00)
[2024-11-14 11:01] LABS: Hematocrit 33.4 % (41.0-53.0); Mean Corpuscular Hemoglobin 33.4 pg (28.0-32.0); Mean Corpuscular Volume 99.7 fL (80.0-100.0); Nucleated Red Blood Cells % 0.0 %
[2024-11-14 11:12] LABS: Hemoglobin 11.2 g/dL (13.5-17.5)
[2024-11-14 11:14] LABS: Alanine Aminotransferase 28 U/L (7-40); Anion Gap 7 (5-15); BUN/Creatinine Ratio 22.2 (10.0-20.0); Carbon Dioxide 31 mmol/L (20-31); Glucose 104 mg/dL (74-106); Magnesium 2.3 mg/dL (1.6-2.6); Potassium 4.2 mmol/L (3.5-5.1); Sodium 136 mmol/L (136-145)
[2024-11-14 11:15] LABS: Bilirubin, Total 0.7 mg/dL (0.2-1.0)
[2024-11-14 11:16] LABS: Albumin 3.1 g/dL (3.2-4.8); Alkaline Phosphatase 241 U/L (46-116); Blood Urea Nitrogen 30 mg/dL (9-23); Calcium 8.2 mg/dL (8.7-10.4); Chloride 98 mmol/L (98-107); Total Protein 5.5 g/dL (5.7-8.2)
--- NOTE | 2024-11-14 11:51 | DVHDS2 ---
Discharge Summary Date of Admission Nov 09, 2024 at 11:23 Labs/Diagnostic Data: Laboratory Results Test 11/14/24 09:45 11/10/24 15:19 11/10/24 12:54 11/10/24 06:34 White Blood Count 5.9 10^3/uL (4.4-10.8) Red Blood Count 3.35 10^6/uL (4.5-5.90) Hemoglobin 11.2 g/dL (13.5-17.5) Hematocrit 33.4 % (41.0-53.0) Mean Corpuscular Volume 99.7 fL (80.0-100.0) Mean Corpuscular Hemoglobin 33.4 pg (28.0-32.0) Mean Corpuscular Hemoglobin Concent 33.6 g/dL (32.0-36.0) Red Cell Distribution Width 14.6 % (11.8-14.3) Platelet Count 110 10^3/uL (140-450) Mean Platelet Volume 7.9 fL (6.9-10.8) Neutrophils (%) (Auto) 85.1 % (37.0-80.0) Lymphocytes (%) (Auto) 3.4 % (10.0-50.0) Monocytes (%) (Auto) 11.0 % (0.0-12.0) Eosinophils (%) (Auto) 0.0 % (0.0-7.0) Basophils (%) (Auto) 0.5 % (0.0-2.0) Neutrophils # (Auto) 5.1 10 ^3/uL (1.6-8.6) Lymphocytes # (Auto) 0.2 10 ^3/uL (0.4-5.4) Monocytes # (Auto) 0.7 10 ^3/uL (0-1.3) Eosinophils # (Auto) 0 10 ^3/uL (0-0.8) Basophils # (Auto) 0 10 ^3/uL (0-0.2) Nucleated Red Blood Cells 0.0 % Sodium Level 136 mmol/L (136-145) Potassium Level 4.2 mmol/L (3.5-5.1) Chloride Level 98 mmol/L (98-107) Carbon Dioxide Level 31 mmol/L (20-31) Anion Gap 7 (5-15) Blood Urea Nitrogen 30 mg/dL (9-23) Creatinine 1.35 mg/dL (0.700-1.30) Glomerular Filtration Rate Calc 51 mL/min (>90) BUN/Creatinine Ratio 22.2 (10.0-20.0) Serum Glucose 104 mg/dL (74-106) Calcium Level 8.2 mg/dL (8.7-10.4) Magnesium Level 2.3 mg/dL (1.6-2.6) Total Bilirubin 0.7 mg/dL (0.2-1.0) Aspartate Amino Transferase (AST) 33 U/L (13-40) Alanine Aminotransferase (ALT) 28 U/L (7-40) Alkaline Phosphatase 241 U/L (46-116) Total Protein 5.5 g/dL (5.7-8.2) Albumin 3.1 g/dL (3.2-4.8) Urine Color Yellow (Yellow) Urine Clarity Clear (Clear) Urine pH 5.5 (5.0-9.0) Urine Specific [place] 1.022 (1.001-1.035) Urine Protein 1+ (Negative) Urine Ketones Negative (Negative) Urine Blood Negative /uL (Negative) Urine Nitrite Negative (Negative) Urine Bilirubin Negative (Negative) Urine Urobilinogen Normal mg/dL (Negative) Urine Leukocyte Esterase Negative /uL (Negative) Urine RBC 2 /hpf (0 - 3) Urine Microscopic WBC 2 /HPF (0-3) Urine Squamous Epithelial Cells None seen /hpf (<5) Urine Bacteria None seen /hpf (None Seen) Urine Creatinine 58.40 mg/dL (30.0-125.0) Urine Protein/Creatinine Ratio 1.08 Urine Sodium 49 mmol/L (40-220) Urine Glucose Normal mg/dL (Normal) Urine Total Protein 63.2 mg/dL (1-14) Phosphorus Level 3.5 mg/dL (2.4-5.1) Vitamin D 25-Hydroxy 76.3 ng/mL (30.0-100) Parathyroid Hormone (Intact) 86.6 pg/mL (18.4-80.1) Test 11/09/24 11:52 11/09/24 07:04 11/09/24 06:44 Urine Amorphous Crystals Few /hpf (None Seen) POC Glucose 102 mg/dl (70-106) Troponin I High Sensitivity 29 ng/L (</=54) C-Reactive Protein High Sensitivity 2.26 mg/dL (<1.0) B-Type Natriuretic Peptide 285.73 pg/mL (0-100) Other Laboratory Tests 11/14/24 09:45 Discharge Instruct/Medications Scheduled Doxycycline Monohydrate (Doxycycline Monohydrate), 1 CAP PO BID Empagliflozin (Jardiance), 10 MG PO DAILY Furosemide (Lasix), 40 MG PO DAILY Hydroxychloroquine Sulfate (Hydroxychloroquine Sulfat), 200 MG PO DAILY Metoprolol Succinate (Metoprolol Succinate Er), 1 TAB PO DAILY Prednisone (Prednisone), 40 MG PO DAILY Rivaroxaban (Xarelto), 1 TAB PO QPM Spironolactone (Aldactone), 1 TAB PO DAILY Tamsulosin Hcl (Flomax), 0.4 MG PO DAILY, (Reported) Zolpidem Tartrate (Ambien), 1 TAB PO QPM, (Reported) Scheduled PRN Albuterol Sulfate (Ventolin Mdi), 90 MCG IN QID PRN Epinephrine (Anaphylaxis) (Auvi-Q), 0.1 MG IJ O PRN Hydrocodone-Acetaminophen (Hydrocodone Bitartrate/AC 5-325 mg), 1 TAB PO Q6HPRN PRN Senna (Senna), 8.6 MG PO DAILYP PRN Discharge Statement: "Patient was advised to return to the ER or call 911 if any headaches, dizziness, shortness of breath, chest pain, abdominal pain, bleeding, fevers, or worsening of medical condition. Patient was counseled about treatment plan, medications, possible side effects, patientverbalized understanding. All questions were answered to the best of my ability. This discharge took greater then 30 minutes in planning, reviewing documentation, counseling the patient, and discussing with other team members." ASSESSMENT ASSESSMENT Assessment CONNIE COLON MD Nov 14, 2024 11:51
--- NOTE | 2024-11-14 11:52 | DVHPN2 ---
Subjective The patient is seen and examined at bedside. Very anxious today. Patient had gross hematuria. Patient on Xarelto. Reviewed: Care Plan, H&P, Labs, Medications, Previous Orders, Radiology Changes from previous H/P or p: No Changes Objective Vitals Vital Signs Date Time Temp Pulse Resp B/P (MAP) Pulse Ox O2 Delivery O2 Flow Rate FiO2 11/14/24 09:00 98.6 79 18 85/47 (60) 94 98.6 11/14/24 07:55 Nasal Cannula* 3 32 Intake/Output Intake and Output 11/14/24 07:00 Intake Total 1972 ml Output Total 1176 ml Balance 796 ml Intake Oral 1672 ml IV Total 300 ml Output Urine Total 1175 ml Stool Total 1 ml # Voids 2 General Appearance: Alert, Cooperative, No acute distress HEENT: Atraumatic, PERRLA, EOMI, Mucous membr. moist/pink Neck: Supple Lungs: Clear to auscultation, Normal air movement Cardiovascular: Regular rate, Normal S1, Normal S2, No murmurs, Gallops, Rubs Abdomen: Normal bowel sounds, Soft, No tenderness Neuro: Strength at 5/5 X4 ext Psych/Mental Status: Mental status NL Medications Current Medications Medications Dose Ordered Sig/Louie Route Start Time Stop Time Status Last Admin Dose Admin Ceftriaxone Sodium 50 ml @ 100 mls/hr DAILY@09 IV 11/10/24 09:00 11/14/24 10:16 100 MLS/HR Azithromycin 250 ml @ 125 mls/hr DAILY IV 11/10/24 10:00 11/13/24 10:00 125 MLS/HR Empaglifozin 10 mg DAILY PO 11/10/24 10:00 Hold Rivaroxaban 15 mg QPM PO 11/09/24 18:00 11/13/24 17:02 15 MG Sennosides 8.6 mg DAILYP PRN PO 11/09/24 11:30 11/14/24 10:17 8.6 MG Spironolactone 25 mg DAILY PO 11/10/24 10:00 11/13/24 09:13 25 MG Tamsulosin HCl 0.4 mg DAILY PO 11/10/24 10:00 11/14/24 10:16 0.4 MG Metoprolol Tartrate 25 mg DAILY PO 11/10/24 10:00 Hold Sodium Chloride 10 ml Q8HR IV 11/09/24 14:00 11/14/24 05:01 10 ML Docusate Sodium 100 mg BIDPRN PRN PO 11/09/24 11:30 11/12/24 13:58 100 MG Acetaminophen 650 mg Q6HP PRN PO 11/09/24 11:30 11/13/24 09:13 650 MG Acetaminophen/ Hydrocodone Bitart 1 tab Q4HP PRN PO 11/09/24 11:30 11/14/24 05:01 1 TAB Ondansetron HCl 4 mg Q4HP PRN IV 11/09/24 11:30 Lorazepam 0.5 mg Q8HP PRN PO 11/10/24 10:30 11/14/24 06:30 0.5 MG Albuterol 2.5 mg Q4HPRN PRN NEB 11/12/24 02:45 Ipratropium [place] 0.5 mg Q4HPRN PRN NEB 11/12/24 02:45 Melatonin 10 mg HS PRN PO 11/12/24 22:00 11/13/24 22:25 10 MG Hydroxychloroquine Sulfate 200 mg DAILY PO 11/13/24 10:00 11/14/24 10:17 200 MG Furosemide 20 mg BIDD IV 11/13/24 18:00 11/14/24 05:07 20 MG Laboratory Results Laboratory Tests 11/14/24 09:45 Chemistry Test 11/14/24 09:45 Albumin 3.1 g/dL (3.2-4.8) L Calcium Level 8.2 mg/dL (8.7-10.4) L Magnesium Level 2.3 mg/dL (1.6-2.6) Total Protein 5.5 g/dL (5.7-8.2) L LFT Test 11/14/24 09:45 Alanine Aminotransferase (ALT) 28 U/L (7-40) Alkaline Phosphatase 241 U/L (46-116) H Aspartate Amino Transferase (AST) 33 U/L (13-40) Total Bilirubin 0.7 mg/dL (0.2-1.0) Urinalysis Test 11/09/24 11:52 11/10/24 15:19 Urine Amorphous Crystals Few /hpf (None Seen) Urine Color Yellow (Yellow) Urine Clarity Clear (Clear) Urine pH 5.5 (5.0-9.0) Urine Specific [place] 1.022 (1.001-1.035) Urine Protein 1+ (Negative) H Urine Ketones Negative (Negative) Urine Blood Negative /uL (Negative) Urine Nitrite Negative (Negative) Urine Bilirubin Negative (Negative) Urine Urobilinogen Normal mg/dL (Negative) Urine Leukocyte Esterase Negative /uL (Negative) Urine RBC 2 /hpf (0 - 3) Urine Microscopic WBC 2 /HPF (0-3) Urine Squamous Epithelial Cells None seen /hpf (<5) Urine Bacteria None seen /hpf (None Seen) Urine Creatinine 58.40 mg/dL (30.0-125.0) Urine Protein/Creatinine Ratio 1.08 Urine Sodium 49 mmol/L (40-220) Urine Glucose Normal mg/dL (Normal) Urine Total Protein 63.2 mg/dL (1-14) H Microbiology Microbiology Date/Time Source Procedure Growth Status 11/12/24 00:13 Sputum Gram Stain - Final Resulted 11/12/24 00:13 Sputum Respiratory Culture - Preliminary Resulted 11/10/24 10:04 Nose MRSA Screen - Final Complete Labs and/or images reviewed: Labs reviewed by me Assessment/Plan Assessment/Plan Pressure ulcer Generalized fatigue Lower lung opacity secondary to Gram-positive pneumonia Atrial fibrillation Anxiety Gross hematuria Continuing current management. Continuing with IV Rocephin. I will add Zithromax to his regimen. Continuing with seen atrial fibrillation medication Continuing and anxiety med. I will increase Ativan to 1 mg p.o. Q eight p.r.n. for anxiety. Continuing wound care Requests RN to flush Alvarez. If remained gross hematuria anticipate to consult urologist. This medical document was created using an electronic medical record system with [employer] computerized dictation system. Although this document has been carefully reviewed, there may still be some phonetic and typographical errors. These areas are purely typographical due to imperfections of the software programs, and do not reflect any compromise in the patient's medical care. Plan discussed with: Patient My Orders Orders - CONNIE COLON MD Procedure Category Date Status Time Communication Order ORDERS 11/14/24 Transmitted 11:47 Sodium Chloride 0.9% PHA 11/14/24 Logged 11:00 Date of Service: Nov 14, 2024 Billing Provider: CONNIE COLON MD Common Visit Codes: [id number] INP/OBS CARE(HIGH) CONNIE COLON MD Nov 14, 2024 11:52
--- NOTE | 2024-11-14 14:35 | DVHINCON2 ---
Date of service: Nov 14, 2024 Referring Physician Hospitalist Reason for Consultation Gross hematuria History of Present Illness Patient with mathis catheter and gross hematuria. On 11/09/24 and 11/10/24, UA was clear. 84-year-old male BIBA with prior medical history of AFib, arthritis, CHF, COPD, PE: Surgical history of hernia repair, tonsillectomy and the chief complaint of general weakness for three days. EMS reported that the patient also has dizziness when he ambulates, and lives alone. EMS state, "all vitals unremarkable . Denies chills, fever, N/V/D, SOB, CP. No other associated symptoms, modifiers, recent injuries or sick contacts present at this time. [facility] Reviewed Notes: Nurses Notes, Medications, Allergies Allergies: Coded Allergies: Sulfa Antibiotics (Verified Allergy, Severe, 05/08/24) Sulfabenzamide (Verified Allergy, Intermediate, 05/08/24) Sulfacetamide (Verified Allergy, Intermediate, 05/08/24) Sulfathiazole (Verified Allergy, Intermediate, 05/08/24) Sacubitril (Unverified Allergy, Unknown, SOB Weakness , 08/21/24) Per pt report Valsartan (Unverified Allergy, Unknown, SOB Weakness , 08/21/24) Per pt report Metoprolol (Verified Adverse Reaction, Severe, 07/12/24) "don't feel very good" per patient Sitagliptin (Verified Adverse Reaction, Severe, 07/12/24) Pt states it made him "feel not very good" Home Meds Active Scripts Senna (Senna) 8.6 Mg Tab, 8.6 MG PO DAILYP PRN for 30 Days, #30 TAB Prov:ROSALEE ZULETA MD 10/30/24 Doxycycline Monohydrate (Doxycycline Monohydrate) 100 Mg Cap, 1 CAP PO BID for 5 Days, #10 CAP Prov:ROSALEE ZULETA MD 10/30/24 Prednisone (Prednisone) 20 Mg Tab, 40 MG PO DAILY for 3 Days, #6 MG Prov:ROSALEE ZULETA MD 10/30/24 Hydroxychloroquine Sulfate (Hydroxychloroquine Sulfat) 200 Mg Tab, 200 MG PO DAILY, #30 TAB 5 Refills Prov:CONNIE COLON MD 07/01/24 Hydrocodone-Acetaminophen (Hydrocodone Bitartrate/AC 5-325 mg) 1 Tab Tab, 1 TAB PO Q6HPRN PRN, #20 TAB Prov:CONNIE COLON MD 07/01/24 Rivaroxaban (XARELTO) 20 Mg Tab, 1 TAB PO QPM, #30 TAB 5 Refills Prov:CONNIE COLON MD 07/01/24 Albuterol Sulfate (VENTOLIN MDI) 90 Mcg Ih, 90 MCG IN QID PRN, #1 INH Prov:RAY CORCORAN MD 06/17/24 Spironolactone (Aldactone) 25 Mg Tab, 1 TAB PO DAILY, #30 TAB 5 Refills Prov:HERBIE LEI MD 05/11/24 Furosemide (Lasix) 40 Mg Tab, 40 MG PO DAILY for 30 Days, #30 TAB 5 Refills Prov:HERBIE LEI MD 05/11/24 Metoprolol Succinate (Metoprolol Succinate Er) 25 Mg Tab, 1 TAB PO DAILY, #30 TAB 1 Refill Prov:ZEENAT PRATT MD 04/20/24 Empagliflozin (Jardiance) 10 Mg Tab, 10 MG PO DAILY for 30 Days, #30 TAB 1 Refill Prov:ZEENAT PRATT MD 04/20/24 Epinephrine (Anaphylaxis) (Auvi-Q) 0.1 Mg/0.1 Ml Inj, 0.1 MG IJ O PRN for 1 Day, #1 INJ Prov:MARCELO TOWNSEND MD 09/09/23 Reported Medications Zolpidem Tartrate (Ambien) 10 Mg Tab, 1 TAB PO QPM 09/20/23 Tamsulosin Hcl (Flomax) 0.4 Mg Cap, 0.4 MG PO DAILY, CAP 09/04/23 Information Source: Patient Mode of Arrival: EMS Severity: Moderate Timing: Days Duration: Since onset, Days Prehospital treatment: None Past Medical History AFIB, Arthritis, CHF, COPD, PE Past Surgical History Hernia Repair, Tonsillectomy Family History: Alcoholism G8 FATHER, Onset:Unknown (patient states his father left when he was a child and doesnt know much about him) FH: atrial fibrillation G8 MOTHER, Onset:60 years & older FH: migraines G8 MOTHER GERD G8 MOTHER, Onset:60 years & older Hypertension G8 MOTHER, Onset:50's - 60 Allergies: Coded Allergies: Empagliflozin (Verified Allergy, Severe, 11/10/24) stops breathing Sulfa Antibiotics (Verified Allergy, Severe, 05/08/24) Sulfabenzamide (Verified Allergy, Intermediate, 05/08/24) Sulfacetamide (Verified Allergy, Intermediate, 05/08/24) Sulfathiazole (Verified Allergy, Intermediate, 05/08/24) Sacubitril (Unverified Allergy, Unknown, SOB Weakness , 08/21/24) Per pt report Valsartan (Unverified Allergy, Unknown, SOB Weakness , 08/21/24) Per pt report Metoprolol (Verified Adverse Reaction, Severe, 07/12/24) "don't feel very good" per patient Sitagliptin (Verified Adverse Reaction, Severe, 07/12/24) Pt states it made him "feel not very good" Home Meds Active Scripts Senna (Senna) 8.6 Mg Tab, 8.6 MG PO DAILYP PRN for 30 Days, #30 TAB Prov:ROSALEE ZULETA MD 10/30/24 Doxycycline Monohydrate (Doxycycline Monohydrate) 100 Mg Cap, 1 CAP PO BID for 5 Days, #10 CAP Prov:ROSALEE ZULETA MD 10/30/24 Prednisone (Prednisone) 20 Mg Tab, 40 MG PO DAILY for 3 Days, #6 MG Prov:ROSALEE ZULETA MD 10/30/24 Hydroxychloroquine Sulfate (Hydroxychloroquine Sulfat) 200 Mg Tab, 200 MG PO DAILY, #30 TAB 5 Refills Prov:CONNIE COLON MD 07/01/24 Hydrocodone-Acetaminophen (Hydrocodone Bitartrate/AC 5-325 mg) 1 Tab Tab, 1 TAB PO Q6HPRN PRN, #20 TAB Prov:CONNIE COLON MD 07/01/24 Rivaroxaban (XARELTO) 20 Mg Tab, 1 TAB PO QPM, #30 TAB 5 Refills Prov:CONNIE COLON MD 07/01/24 Albuterol Sulfate (VENTOLIN MDI) 90 Mcg Ih, 90 MCG IN QID PRN, #1 INH Prov:RAY CORCORAN MD 06/17/24 Spironolactone (Aldactone) 25 Mg Tab, 1 TAB PO DAILY, #30 TAB 5 Refills Prov:HERBIE LEI MD 05/11/24 Furosemide (Lasix) 40 Mg Tab, 40 MG PO DAILY for 30 Days, #30 TAB 5 Refills Prov:HERBIE LEI MD 05/11/24 Metoprolol Succinate (Metoprolol Succinate Er) 25 Mg Tab, 1 TAB PO DAILY, #30 TAB 1 Refill Prov:ZEENAT PRATT MD 04/20/24 Empagliflozin (Jardiance) 10 Mg Tab, 10 MG PO DAILY for 30 Days, #30 TAB 1 Refill Prov:ZEENAT PRATT MD 04/20/24 Epinephrine (Anaphylaxis) (Auvi-Q) 0.1 Mg/0.1 Ml Inj, 0.1 MG IJ O PRN for 1 Day, #1 INJ Prov:MARCELO TOWNSEND MD 09/09/23 Reported Medications Zolpidem Tartrate (Ambien) 10 Mg Tab, 1 TAB PO QPM 09/20/23 Tamsulosin Hcl (Flomax) 0.4 Mg Cap, 0.4 MG PO DAILY, CAP 09/04/23 Current Medications Current Medications Medications (Trade) Dose Ordered Sig/Louie Route PRN Reason Start Time Stop Time Status Last Admin Furosemide (Lasix Injection) 20 mg BIDD IV 11/13/24 18:00 11/14/24 05:07 Review of Systems Constitutional: reports: weakness; denies: chills, diaphoresis, fatigue, fever, malaise, sweats, others EENTM: denies: blurred vision, double vision, ear bleeding, ear discharge, ear drainage, ear pain, ear ringing, eye pain, eye redness, hearing loss, mouth pain, mouth swelling, nasal discharge, nose bleeding, nose congestion, nose pain, photophobia, tearing, throat pain, throat swelling, voice changes, others Respiratory: denies: cough, hemoptysis, orthopnea, SOB at rest, shortness of breath, SOB with excertion, stridor, wheezing, others Cardiovascular: denies: chest pain, dizzy spells, diaphoresis, Dyspnea on exertion, edema, irregular heart beat, left arm pain, lightheadedness, palpitations, PND, syncope, others Gastrointestinal: denies: abdomen distended, abdominal pain, blood streaked bowels, constipated, diarrhea, dysphagia, difficulty swallowing, hematemesis, melena, nausea, poor appetite, poor fluid intake, rectal bleeding, rectal pain, vomiting, others Genitourinary: denies: burning, dysuria, flank pain, frequency, hematuria, incontinence, penile discharge, penile sore, pain, testicle pain, testicle swelling, urgency, others Neurological: reports: dizziness (during ambulation); denies: fainting, headache, left sided numbness, left sided weakness, numbness, paresthesia, pre- existing deficit, right sided numbness, right sided weakness, seizure, speech problems, tingling, tremors, weakness, others Musculoskeletal: denies: back pain, gout, joint pain, joint swelling, muscle pain, muscle stiffness, neck pain, others Integumetry: denies: bruises, change in color, change in hair/nails, dryness, laceration, lesions, lumps, rash, wounds, others Allergic/Immunocompromised: denies: Difficulty Healing, Frequent Infections, Hives, Itching, others Hematologic/Lymphatic: denies: anemia, blood clots, easy bleeding, easy bruising, swollen glands, others Endocrine: denies: excessive hunger, excessive sweating, excessive thirst, excessive urination, flushing, intolerance to cold, intolerance to heat, unexplained weight gain, unexplained weight loss, others Psychiatric: denies: anxiety, bipolar disorder, depression, hopeless, panic disorder, schizophrenia, sleepless, suicidal, others All Other Systems: Reviewed and Negative Vital Signs Vital Signs Date Time Temp Pulse Resp B/P (MAP) Pulse Ox O2 Delivery O2 Flow Rate FiO2 11/14/24 09:00 98.6 79 18 85/47 (60) 94 98.6 11/14/24 07:55 Nasal Cannula* 3 32 Physical Exam General Appearance: Moderate Distress, Normal HEENT: Normal ENT Inspection, Pharynx Normal, TMs Normal Neck: Full Range of Motion, Non-Tender, Normal, Normal Inspection Respiratory: Chest Non-Tender, Lungs Clear, No Accessory Muscle Use, No Respiratory Distress, Normal Breath Sounds Cardiovascular: No Edema, No JVD, No Murmur, No Gallop, Normal Peripheral Pulses, Regular Rate/Rhythm Breast Exam: Deferred Gastrointestinal: No Organomegaly, Non Tender, No Pulsatile Mass, Normal Bowel Sounds, Soft Genitalia: Mathis catheter in place with gross hematuria noted Pelvic: Deferred Rectal: Deferred Extremities: No calf tenderness, Normal capillary refill, Normal inspection, Normal range of motion, Non-tender, No pedal edema Musculoskeletal : Apperance: Normal Neurologic: Alert, waterproof bag sewer II-XII nml as Tested, No Motor Deficits, Normal Affect, Normal Mood, No Sensory Deficits Cerebellar Function: NOT DONE Reflexes: NOT DONE Skin: Dry, Normal Color, Warm, Wounds (Sacrum) Peripheral Pulses: 3+ Radial (R), 3+ Radial (L) Lymphatic: No Adenopathy Labs/Diagnostic Data Labs Test 11/14/24 09:45 11/10/24 15:19 11/10/24 12:54 11/10/24 06:34 Range/Units White Blood Count 5.9 4.4-10.8 10^3/uL Red Blood Count 3.35 L 4.5-5.90 10^6/uL Hemoglobin 11.2 L 13.5-17.5 g/dL Hematocrit 33.4 L 41.0-53.0 % Mean Corpuscular Volume 99.7 80.0-100.0 fL Mean Corpuscular Hemoglobin 33.4 H 28.0-32.0 pg Mean Corpuscular Hemoglobin Concent 33.6 32.0-36.0 g/dL Red Cell Distribution Width 14.6 H 11.8-14.3 % Platelet Count 110 L 140-450 10^3/uL Mean Platelet Volume 7.9 6.9-10.8 fL Neutrophils (%) (Auto) 85.1 H 37.0-80.0 % Lymphocytes (%) (Auto) 3.4 L 10.0-50.0 % Monocytes (%) (Auto) 11.0 0.0-12.0 % Eosinophils (%) (Auto) 0.0 0.0-7.0 % Basophils (%) (Auto) 0.5 0.0-2.0 % Neutrophils # (Auto) 5.1 1.6-8.6 10 ^3/uL Lymphocytes # (Auto) 0.2 L 0.4-5.4 10 ^3/uL Monocytes # (Auto) 0.7 0-1.3 10 ^3/uL Eosinophils # (Auto) 0 0-0.8 10 ^3/uL Basophils # (Auto) 0 0-0.2 10 ^3/uL Nucleated Red Blood Cells 0.0 % Sodium Level 136 136-145 mmol/L Potassium Level 4.2 3.5-5.1 mmol/L Chloride Level 98 98-107 mmol/L Carbon Dioxide Level 31 20-31 mmol/L Anion Gap 7 5-15 Blood Urea Nitrogen 30 H 9-23 mg/dL Creatinine 1.35 H 0.700-1.30 mg/dL Glomerular Filtration Rate Calc 51 >90 mL/min BUN/Creatinine Ratio 22.2 H 10.0-20.0 Serum Glucose 104 74-106 mg/dL Calcium Level 8.2 L 8.7-10.4 mg/dL Magnesium Level 2.3 1.6-2.6 mg/dL Total Bilirubin 0.7 0.2-1.0 mg/dL Aspartate Amino Transferase (AST) 33 13-40 U/L Alanine Aminotransferase (ALT) 28 7-40 U/L Alkaline Phosphatase 241 H 46-116 U/L Total Protein 5.5 L 5.7-8.2 g/dL Albumin 3.1 L 3.2-4.8 g/dL Urine Color Yellow Yellow Urine Clarity Clear Clear Urine pH 5.5 5.0-9.0 Urine Specific [place] 1.022 1.001-1.035 Urine Protein 1+ H Negative Urine Ketones Negative Negative Urine Blood Negative Negative /uL Urine Nitrite Negative Negative Urine Bilirubin Negative Negative Urine Urobilinogen Normal Negative mg/dL Urine Leukocyte Esterase Negative Negative /uL Urine RBC 2 0 - 3 /hpf Urine Microscopic WBC 2 0-3 /HPF Urine Squamous Epithelial Cells None seen <5 /hpf Urine Bacteria None seen None Seen /hpf Urine Creatinine 58.40 30.0-125.0 mg/dL Urine Protein/Creatinine Ratio 1.08 Urine Sodium 49 40-220 mmol/L Urine Glucose Normal Normal mg/dL Urine Total Protein 63.2 H 1-14 mg/dL Phosphorus Level 3.5 2.4-5.1 mg/dL Vitamin D 25-Hydroxy 76.3 30.0-100 ng/mL Parathyroid Hormone (Intact) 86.6 H 18.4-80.1 pg/mL Test 11/09/24 11:52 11/09/24 07:04 11/09/24 06:44 Range/Units Urine Amorphous Crystals Few None Seen /hpf POC Glucose 102 70-106 mg/dl Troponin I High Sensitivity 29 </=54 ng/L C-Reactive Protein High Sensitivity 2.26 H <1.0 mg/dL B-Type Natriuretic Peptide 285.73 0-100 pg/mL Microbiology Date/Time Source Procedure Growth Status 11/12/24 00:13 Sputum Gram Stain - Final Resulted 11/12/24 00:13 Sputum Respiratory Culture - Preliminary Resulted 11/10/24 10:04 Nose MRSA Screen - Final Complete Assessment Gross hematuria BPH Urinary retention Plan/Recommendation Cystoscopy with biopsy/fulguration, possible TURP Plan discussed with: Patient, Other DELANEY PALMA MD Nov 14, 2024 14:35
--- NOTE | 2024-11-14 15:41 | DVH ---
Exam: CT CT AB PEL WO CON-NO ORAL OR IV History: gross hematuria Comparison Study: None TECHNIQUE: Multidetector CT of the abdomen was performed from lung bases to pubic symphysis. Imaging was performed without IV contrast. Axial, coronal and sagittal multiplanar reformats were obtained fr om the axial data set by the technologist. Radiation Dose Information: CT Dose: CTDI volume is 7.69 mGy. Dose-length product is 366.88 mGy*cm FINDINGS: Evaluation of solid organs is limited due to lack of intravenous contrast use. Findings: Lung Bases: Honeycombing is seen at both lung bases. The heart size is enlarged. There is a small lef t effusion and a minimal right effusion. Liver: The liver is normal in size. No focal lesions. Gallbladder and Biliary Tree: Unremarkable Spleen: Unremarkable Pancreas: The pancreas is grossly normal in appearance. Adrenal Glands: Unremarkable Kidneys: The kidneys are non hydronephrotic. There is a 3.6 cm left renal cyst. There is a 9 mm calc ification in the region of the left renal pelvis however I do not feel this is within the collecting system and could be vascular. Bladder: Alvarez catheter is present within the bladder. Bowel: The stomach is grossly normal in appearance. Small bowel and colon are normal in caliber and d istribution. The appendix is not visualized; however, no secondary findings of acute appendicitis id entified. Ascites: Absent Lymphadenopathy: No mesenteric, retroperitoneal or periportal lymphadenopathy. Abdominal Wall and Mesentery: Unremarkable. Vasculature: The visualized abdominal aorta is normal in size and caliber. Evaluation of abdominal a nd pelvic vessels is limited due to lack of intravenous contrast. Pelvic Organs: Unremarkable Musculoskeletal: Degenerative changes are seen throughout the lumbar spine. Soft tissues: Unremarkable IMPRESSION: 1. There is an 8 mm calcification present in the region of the left renal pelvis however I do not fee l this is within the renal collecting system. 2. Honeycombing is seen at both lung bases. 3. Small bilateral effusions 4. Cardiomegaly 5. Radiation optimization: All CT scans at this facility use at least one of these dose optimization techniques: automated exposure control mA and/or kV adjustment per patient size (includes targeted e xams where dose is matched to clinical indication) or iterative reconstruction.
--- NOTE | 2024-11-14 17:13 | DVHPN2 ---
Progress Note Date Seen: Nov 14, 2024 Medical Necessity Reason Pt with a Central, PICC or Fol: Yes The following are medically ne: Alvarez Catheter Subjective Patient reports: No new complaints Objective vital signs Vital Sign Date Time Temp Pulse Resp B/P (MAP) Pulse Ox O2 Delivery O2 Flow Rate FiO2 11/14/24 17:00 99.1 82 16 93/52 (66) 98 99.1 11/14/24 08:00 Room Air* 0 21 Total Intake and Output 11/13/24 11/13/24 11/14/24 15:00 23:00 07:00 Intake Total 830 ml 530 ml 612 ml Output Total 1 ml 1175 ml Balance 830 ml 529 ml -563 ml medications Current Medications Medications Dose Ordered Sig/Louie Route Start Time Stop Time Status Last Admin Dose Admin Ceftriaxone Sodium 50 ml @ 100 mls/hr DAILY@09 IV 11/10/24 09:00 11/14/24 10:16 100 MLS/HR Azithromycin 250 ml @ 125 mls/hr DAILY IV 11/10/24 10:00 11/13/24 10:00 125 MLS/HR Empaglifozin 10 mg DAILY PO 11/10/24 10:00 Hold Rivaroxaban 15 mg QPM PO 11/09/24 18:00 11/13/24 17:02 15 MG Sennosides 8.6 mg DAILYP PRN PO 11/09/24 11:30 11/14/24 10:17 8.6 MG Spironolactone 25 mg DAILY PO 11/10/24 10:00 11/13/24 09:13 25 MG Tamsulosin HCl 0.4 mg DAILY PO 11/10/24 10:00 11/14/24 10:16 0.4 MG Metoprolol Tartrate 25 mg DAILY PO 11/10/24 10:00 Hold Sodium Chloride 10 ml Q8HR IV 11/09/24 14:00 11/14/24 05:01 10 ML Docusate Sodium 100 mg BIDPRN PRN PO 11/09/24 11:30 11/12/24 13:58 100 MG Acetaminophen 650 mg Q6HP PRN PO 11/09/24 11:30 11/13/24 09:13 650 MG Acetaminophen/ Hydrocodone Bitart 1 tab Q4HP PRN PO 11/09/24 11:30 11/14/24 17:00 1 TAB Ondansetron HCl 4 mg Q4HP PRN IV 11/09/24 11:30 Lorazepam 0.5 mg Q8HP PRN PO 11/10/24 10:30 11/14/24 06:30 0.5 MG Albuterol 2.5 mg Q4HPRN PRN NEB 11/12/24 02:45 Ipratropium [place] 0.5 mg Q4HPRN PRN NEB 11/12/24 02:45 Melatonin 10 mg HS PRN PO 11/12/24 22:00 11/13/24 22:25 10 MG Hydroxychloroquine Sulfate 200 mg DAILY PO 11/13/24 10:00 11/14/24 10:17 200 MG Furosemide 20 mg BIDD IV 11/13/24 18:00 11/14/24 05:07 20 MG laboratory and microbiology Laboratory Tests 11/14/24 09:45 Test 11/14/24 09:45 Range/Units Serum Glucose 104 74-106 mg/dL Microbiology Date/Time Source Procedure Growth Status 11/12/24 00:13 Sputum Gram Stain - Final Resulted 11/12/24 00:13 Sputum Respiratory Culture - Preliminary Resulted 11/10/24 10:04 Nose MRSA Screen - Final Complete Problem List/Assessment/Plan Problem List/Assessment/Plan Acute kidney injury superimposed Chronic Kidney Disease stage IIIA secondary hemodynamic mediated Acute on chronic respiratory failure Atrial fibrillation with RVR Congestive heart failure exacerbation Hypertension Anemia of chronic kidney disease Mild proteinuria, urine protein creatinine ratio 1 recs hold jardiance,spironolactone,lasix--bp low--ns iv given Plan discussed with: Patient Dietary Evaluation Review Comments: 1) Ensure Enlive 240ml BID 2) Monitor PO intake, lab values, weight trend, and I/O Expected Outcomes/Goals: To gain/maintain weight Wound to improve Fu 3-5 days LIANE MOSQUERA MD Nov 14, 2024 17:13
[2024-11-14] MEDS ORDERED: ALBUMIN 5% 50 ML IV ONE (21:15)
[2024-11-14] MEDS: ALBUMIN 5% 250 ML IV ONE (22:44)
[2024-11-15] VITALS (10 sets, daily range): BP systolic 93–117; BP diastolic 51–68; PULSE 67–97; RESP 16–18; TEMP 97.6–98.7; O2SAT 88–99
--- NOTE | 2024-11-15 12:03 | DVHPN2 ---
Subjective The patient is seen and examined at bedside. Very anxious today. Continuing to have gross hematuria Reviewed: Care Plan, H&P, Labs, Medications, Previous Orders, Radiology Changes from previous H/P or p: No Changes Objective Vitals Vital Signs Date Time Temp Pulse Resp B/P (MAP) Pulse Ox O2 Delivery O2 Flow Rate FiO2 11/15/24 08:56 98.2 86 17 117/68 (84) 91 98.2 11/15/24 08:11 Room Air 0.0 11/15/24 08:11 21 Intake/Output Intake and Output 11/15/24 07:00 Intake Total 1808 ml Output Total 1476 ml Balance 332 ml Intake Oral 1508 ml IV Total 300 ml Output Urine Total 1475 ml Stool Total 1 ml General Appearance: Alert, Cooperative, No acute distress HEENT: Atraumatic, PERRLA, EOMI, Mucous membr. moist/pink Neck: Supple Lungs: Clear to auscultation, Normal air movement Cardiovascular: Regular rate, Normal S1, Normal S2, No murmurs, Gallops, Rubs Abdomen: Normal bowel sounds, Soft, No tenderness Neuro: Strength at 5/5 X4 ext Psych/Mental Status: Mental status NL Medications Current Medications Medications Dose Ordered Sig/Louie Route Start Time Stop Time Status Last Admin Dose Admin Ceftriaxone Sodium 50 ml @ 100 mls/hr DAILY@09 IV 11/10/24 09:00 11/15/24 10:32 100 MLS/HR Azithromycin 250 ml @ 125 mls/hr DAILY IV 11/10/24 10:00 11/15/24 10:32 125 MLS/HR Sennosides 8.6 mg DAILYP PRN PO 11/09/24 11:30 11/14/24 10:17 8.6 MG Tamsulosin HCl 0.4 mg DAILY PO 11/10/24 10:00 11/15/24 10:32 0.4 MG Metoprolol Tartrate 25 mg DAILY PO 11/10/24 10:00 Hold Sodium Chloride 10 ml Q8HR IV 11/09/24 14:00 11/15/24 05:42 10 ML Docusate Sodium 100 mg BIDPRN PRN PO 11/09/24 11:30 11/12/24 13:58 100 MG Acetaminophen 650 mg Q6HP PRN PO 11/09/24 11:30 11/13/24 09:13 650 MG Acetaminophen/ Hydrocodone Bitart 1 tab Q4HP PRN PO 11/09/24 11:30 11/15/24 05:42 1 TAB Ondansetron HCl 4 mg Q4HP PRN IV 11/09/24 11:30 Lorazepam 0.5 mg Q8HP PRN PO 11/10/24 10:30 11/14/24 18:19 0.5 MG Albuterol 2.5 mg Q4HPRN PRN NEB 11/12/24 02:45 Ipratropium [place] 0.5 mg Q4HPRN PRN NEB 11/12/24 02:45 Melatonin 10 mg HS PRN PO 11/12/24 22:00 11/14/24 22:30 10 MG Hydroxychloroquine Sulfate 200 mg DAILY PO 11/13/24 10:00 11/15/24 10:32 200 MG Laboratory Results Laboratory Tests 11/14/24 09:45 Urinalysis Test 11/09/24 11:52 11/10/24 15:19 Urine Amorphous Crystals Few /hpf (None Seen) Urine Color Yellow (Yellow) Urine Clarity Clear (Clear) Urine pH 5.5 (5.0-9.0) Urine Specific [place] 1.022 (1.001-1.035) Urine Protein 1+ (Negative) H Urine Ketones Negative (Negative) Urine Blood Negative /uL (Negative) Urine Nitrite Negative (Negative) Urine Bilirubin Negative (Negative) Urine Urobilinogen Normal mg/dL (Negative) Urine Leukocyte Esterase Negative /uL (Negative) Urine RBC 2 /hpf (0 - 3) Urine Microscopic WBC 2 /HPF (0-3) Urine Squamous Epithelial Cells None seen /hpf (<5) Urine Bacteria None seen /hpf (None Seen) Urine Creatinine 58.40 mg/dL (30.0-125.0) Urine Protein/Creatinine Ratio 1.08 Urine Sodium 49 mmol/L (40-220) Urine Glucose Normal mg/dL (Normal) Urine Total Protein 63.2 mg/dL (1-14) H Microbiology Microbiology Date/Time Source Procedure Growth Status 11/12/24 00:13 Sputum Gram Stain - Final Resulted 11/12/24 00:13 Sputum Respiratory Culture - Preliminary Resulted 11/10/24 10:04 Nose MRSA Screen - Final Complete Labs and/or images reviewed: Labs reviewed by me Assessment/Plan Assessment/Plan Pressure ulcer Generalized fatigue Lower lung opacity secondary to Gram-positive pneumonia Atrial fibrillation Anxiety Gross hematuria Continuing current management. Continuing with IV Rocephin. I will add Zithromax to his regimen. Continuing with seen atrial fibrillation medication Continuing and anxiety med. I will increase Ativan to 1 mg p.o. Q eight p.r.n. for anxiety. Continuing wound care We will consulted urologist for his gross hematuria Continuing to flush Alvarez Hold Xarelto for now Hospice evaluation consult This medical document was created using an electronic medical record system with [employer] dictation system. Although this document has been carefully reviewed, there may still be some phonetic and typographical errors. These areas are purely typographical due to imperfections of the software programs, and do not reflect any compromise in the patient's medical care. Plan discussed with: Patient My Orders Orders - CONNIE COLON MD Procedure Category Date Status Time * Urology Consult CONS 11/14/24 Transmitted 13:40 Date of Service: Nov 15, 2024 Billing Provider: CONNIE COLON MD Common Visit Codes: [id number] INP/OBS CARE(HIGH) CONNIE COLON MD Nov 15, 2024 12:03
--- NOTE | 2024-11-15 14:48 | DVHPN2 ---
Progress Note Date Seen: Nov 15, 2024 Medical Necessity Reason Pt with a Central, PICC or Fol: Yes The following are medically ne: Alvarez Catheter Subjective Patient reports: No new complaints Review of Systems: :Abnormal Objective vital signs Vital Sign Date Time Temp Pulse Resp B/P (MAP) Pulse Ox O2 Delivery O2 Flow Rate FiO2 11/15/24 13:35 98.7 70 16 93/56 (68) 99 98.7 11/15/24 08:11 Room Air 0.0 11/15/24 08:11 21 Total Intake and Output 11/14/24 11/14/24 11/15/24 15:00 23:00 07:00 Intake Total 344 ml 864 ml 600 ml Output Total 1026 ml 450 ml Balance 344 ml -162 ml 150 ml medications Current Medications Medications Dose Ordered Sig/Louie Route Start Time Stop Time Status Last Admin Dose Admin Ceftriaxone Sodium 50 ml @ 100 mls/hr DAILY@09 IV 11/10/24 09:00 11/15/24 10:32 100 MLS/HR Azithromycin 250 ml @ 125 mls/hr DAILY IV 11/10/24 10:00 11/15/24 10:32 125 MLS/HR Sennosides 8.6 mg DAILYP PRN PO 11/09/24 11:30 11/14/24 10:17 8.6 MG Tamsulosin HCl 0.4 mg DAILY PO 11/10/24 10:00 11/15/24 10:32 0.4 MG Metoprolol Tartrate 25 mg DAILY PO 11/10/24 10:00 Hold Sodium Chloride 10 ml Q8HR IV 11/09/24 14:00 11/15/24 14:02 10 ML Docusate Sodium 100 mg BIDPRN PRN PO 11/09/24 11:30 11/15/24 13:16 100 MG Acetaminophen 650 mg Q6HP PRN PO 11/09/24 11:30 11/15/24 13:17 650 MG Acetaminophen/ Hydrocodone Bitart 1 tab Q4HP PRN PO 11/09/24 11:30 11/15/24 05:42 1 TAB Ondansetron HCl 4 mg Q4HP PRN IV 11/09/24 11:30 Lorazepam 0.5 mg Q8HP PRN PO 11/10/24 10:30 11/14/24 18:19 0.5 MG Albuterol 2.5 mg Q4HPRN PRN NEB 11/12/24 02:45 Ipratropium [place] 0.5 mg Q4HPRN PRN NEB 11/12/24 02:45 Melatonin 10 mg HS PRN PO 11/12/24 22:00 11/14/24 22:30 10 MG Hydroxychloroquine Sulfate 200 mg DAILY PO 11/13/24 10:00 11/15/24 10:32 200 MG Examination: :Abnormal laboratory and microbiology Laboratory Tests 11/14/24 09:45 Test 11/14/24 09:45 Range/Units Serum Glucose 104 74-106 mg/dL Microbiology Date/Time Source Procedure Growth Status 11/12/24 00:13 Sputum Gram Stain - Final Resulted 11/12/24 00:13 Sputum Respiratory Culture - Preliminary Resulted 11/10/24 10:04 Nose MRSA Screen - Final Complete Problem List/Assessment/Plan Problem List/Assessment/Plan Acute kidney injury superimposed Chronic Kidney Disease stage IIIA secondary hemodynamic mediated Acute on chronic respiratory failure Atrial fibrillation with RVR Congestive heart failure exacerbation Hypertension Anemia of chronic kidney disease Mild proteinuria, urine protein creatinine ratio 1 hematuria recs hold jardiance,spironolactone,lasix--bp low--ns iv given no new labs today check labs urology planning cystoscopy +/-TURP Plan discussed with: Other Dietary Evaluation Review Comments: 1) Ensure Enlive 240ml BID 2) Monitor PO intake, lab values, weight trend, and I/O Expected Outcomes/Goals: To gain/maintain weight Wound to improve Fu 3-5 days LINAE MOSQUERA MD Nov 15, 2024 14:47
[2024-11-16] VITALS (10 sets, daily range): BP systolic 99–129; BP diastolic 51–75; PULSE 66–83; RESP 16–18; TEMP 97.8–99.5; O2SAT 92–99
[2024-11-16 07:05] LABS: Anion Gap 6 (5-15); Carbon Dioxide 31 mmol/L (20-31); Chloride 100 mmol/L (98-107); Potassium 4.3 mmol/L (3.5-5.1); Sodium 137 mmol/L (136-145)
[2024-11-16 07:07] LABS: Calcium 8.4 mg/dL (8.7-10.4)
[2024-11-16 07:11] LABS: BUN/Creatinine Ratio 24.6 (10.0-20.0); Blood Urea Nitrogen 30 mg/dL (9-23); Glucose 75 mg/dL (74-106)
--- NOTE | 2024-11-16 12:54 | DVHPN2 ---
Subjective The patient is seen and examined at bedside. Very anxious today. Complain of not feeling so good. Continuing to have gross hematuria Reviewed: Care Plan, H&P, Labs, Medications, Previous Orders, Radiology Changes from previous H/P or p: No Changes Objective Vitals Vital Signs Date Time Temp Pulse Resp B/P (MAP) Pulse Ox O2 Delivery O2 Flow Rate FiO2 11/16/24 08:00 Room Air* 0 21 11/16/24 05:55 96 11/16/24 05:00 98.1 69 18 100/62 (75) 98.1 Intake/Output Intake and Output 11/16/24 07:00 Intake Total 1500 ml Output Total 950 ml Balance 550 ml Intake Oral 1200 ml IV Total 300 ml Output Urine Total 950 ml # Bowel Movements 5 General Appearance: Alert, Cooperative, No acute distress HEENT: Atraumatic, PERRLA, EOMI, Mucous membr. moist/pink Neck: Supple Lungs: Clear to auscultation, Normal air movement Cardiovascular: Regular rate, Normal S1, Normal S2, No murmurs, Gallops, Rubs Abdomen: Normal bowel sounds, Soft, No tenderness Neuro: Strength at 5/5 X4 ext Psych/Mental Status: Mental status NL Medications Current Medications Medications Dose Ordered Sig/Louie Route Start Time Stop Time Status Last Admin Dose Admin Ceftriaxone Sodium 50 ml @ 100 mls/hr DAILY@09 IV 11/10/24 09:00 11/16/24 10:49 100 MLS/HR Azithromycin 250 ml @ 125 mls/hr DAILY IV 11/10/24 10:00 11/16/24 10:20 125 MLS/HR Sennosides 8.6 mg DAILYP PRN PO 11/09/24 11:30 11/14/24 10:17 8.6 MG Tamsulosin HCl 0.4 mg DAILY PO 11/10/24 10:00 11/16/24 10:19 0.4 MG Metoprolol Tartrate 25 mg DAILY PO 11/10/24 10:00 Hold Sodium Chloride 10 ml Q8HR IV 11/09/24 14:00 11/16/24 05:44 10 ML Docusate Sodium 100 mg BIDPRN PRN PO 11/09/24 11:30 11/15/24 22:26 100 MG Acetaminophen 650 mg Q6HP PRN PO 11/09/24 11:30 11/15/24 13:17 650 MG Acetaminophen/ Hydrocodone Bitart 1 tab Q4HP PRN PO 11/09/24 11:30 11/16/24 02:11 1 TAB Ondansetron HCl 4 mg Q4HP PRN IV 11/09/24 11:30 Lorazepam 0.5 mg Q8HP PRN PO 11/10/24 10:30 11/15/24 22:26 0.5 MG Albuterol 2.5 mg Q4HPRN PRN NEB 11/12/24 02:45 Ipratropium [place] 0.5 mg Q4HPRN PRN NEB 11/12/24 02:45 Melatonin 10 mg HS PRN PO 11/12/24 22:00 11/15/24 21:28 10 MG Hydroxychloroquine Sulfate 200 mg DAILY PO 11/13/24 10:00 11/16/24 10:20 200 MG Laboratory Results Laboratory Tests 11/14/24 09:45 11/16/24 05:55 Chemistry Test 11/16/24 05:55 Calcium Level 8.4 mg/dL (8.7-10.4) L Urinalysis Test 11/09/24 11:52 11/10/24 15:19 Urine Amorphous Crystals Few /hpf (None Seen) Urine Color Yellow (Yellow) Urine Clarity Clear (Clear) Urine pH 5.5 (5.0-9.0) Urine Specific [place] 1.022 (1.001-1.035) Urine Protein 1+ (Negative) H Urine Ketones Negative (Negative) Urine Blood Negative /uL (Negative) Urine Nitrite Negative (Negative) Urine Bilirubin Negative (Negative) Urine Urobilinogen Normal mg/dL (Negative) Urine Leukocyte Esterase Negative /uL (Negative) Urine RBC 2 /hpf (0 - 3) Urine Microscopic WBC 2 /HPF (0-3) Urine Squamous Epithelial Cells None seen /hpf (<5) Urine Bacteria None seen /hpf (None Seen) Urine Creatinine 58.40 mg/dL (30.0-125.0) Urine Protein/Creatinine Ratio 1.08 Urine Sodium 49 mmol/L (40-220) Urine Glucose Normal mg/dL (Normal) Urine Total Protein 63.2 mg/dL (1-14) H Microbiology Microbiology Date/Time Source Procedure Growth Status 11/12/24 00:13 Sputum Gram Stain - Final Resulted 11/12/24 00:13 Sputum Respiratory Culture - Preliminary Resulted 11/10/24 10:04 Nose MRSA Screen - Final Complete Labs and/or images reviewed: Labs reviewed by me Assessment/Plan Assessment/Plan Pressure ulcer Generalized fatigue Lower lung opacity secondary to Gram-positive pneumonia Atrial fibrillation Anxiety Gross hematuria Continuing current management. Continuing with IV Rocephin. I will add Zithromax to his regimen. Continuing with seen atrial fibrillation medication Continuing and anxiety med. I will increase Ativan to 1 mg p.o. Q eight p.r.n. for anxiety. Continuing wound care Waiting for cystoscopy in a.m.. Appreciate Urology, 's input Continuing to flush Alvarez Hold Xarelto for now Hospice evaluation consult This medical document was created using an electronic medical record system with [employer] computerized dictation system. Although this document has been carefully reviewed, there may still be some phonetic and typographical errors. These areas are purely typographical due to imperfections of the software programs, and do not reflect any compromise in the patient's medical care. 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
--- NOTE | 2024-11-16 16:06 | DVHPN2 ---
Progress Note Date Seen: Nov 16, 2024 Medical Necessity Reason Pt with a Central, PICC or Fol: Yes The following are medically ne: Alvarez Catheter Subjective Patient reports: Other Objective vital signs Vital Sign Date Time Temp Pulse Resp B/P (MAP) Pulse Ox O2 Delivery O2 Flow Rate FiO2 11/16/24 13:00 98.7 74 18 103/63 (76) 93 98.7 11/16/24 10:00 Nasal Cannula 2.0 11/16/24 10:00 28 Total Intake and Output 11/15/24 11/15/24 11/16/24 15:00 23:00 07:00 Intake Total 300 ml 500 ml 700 ml Output Total 550 ml 400 ml Balance 300 ml -50 ml 300 ml medications Current Medications Medications Dose Ordered Sig/Louie Route Start Time Stop Time Status Last Admin Dose Admin Ceftriaxone Sodium 50 ml @ 100 mls/hr DAILY@09 IV 11/10/24 09:00 11/16/24 10:49 100 MLS/HR Azithromycin 250 ml @ 125 mls/hr DAILY IV 11/10/24 10:00 11/16/24 10:20 125 MLS/HR Sennosides 8.6 mg DAILYP PRN PO 11/09/24 11:30 11/14/24 10:17 8.6 MG Tamsulosin HCl 0.4 mg DAILY PO 11/10/24 10:00 11/16/24 10:19 0.4 MG Metoprolol Tartrate 25 mg DAILY PO 11/10/24 10:00 Hold Sodium Chloride 10 ml Q8HR IV 11/09/24 14:00 11/16/24 05:44 10 ML Docusate Sodium 100 mg BIDPRN PRN PO 11/09/24 11:30 11/15/24 22:26 100 MG Acetaminophen 650 mg Q6HP PRN PO 11/09/24 11:30 11/15/24 13:17 650 MG Acetaminophen/ Hydrocodone Bitart 1 tab Q4HP PRN PO 11/09/24 11:30 11/16/24 02:11 1 TAB Ondansetron HCl 4 mg Q4HP PRN IV 11/09/24 11:30 Lorazepam 0.5 mg Q8HP PRN PO 11/10/24 10:30 11/15/24 22:26 0.5 MG Albuterol 2.5 mg Q4HPRN PRN NEB 11/12/24 02:45 Ipratropium [place] 0.5 mg Q4HPRN PRN NEB 11/12/24 02:45 Melatonin 10 mg HS PRN PO 11/12/24 22:00 11/15/24 21:28 10 MG Hydroxychloroquine Sulfate 200 mg DAILY PO 11/13/24 10:00 11/16/24 10:20 200 MG laboratory and microbiology Laboratory Tests 11/16/24 05:55 11/14/24 09:45 Test 11/16/24 05:55 Range/Units Serum Glucose 75 74-106 mg/dL Microbiology Date/Time Source Procedure Growth Status 11/12/24 00:13 Sputum Gram Stain - Final Resulted 11/12/24 00:13 Sputum Respiratory Culture - Preliminary Resulted 11/10/24 10:04 Nose MRSA Screen - Final Complete Problem List/Assessment/Plan Problem List/Assessment/Plan Acute kidney injury superimposed Chronic Kidney Disease stage IIIA secondary hemodynamic mediated Acute on chronic respiratory failure Atrial fibrillation with RVR Congestive heart failure exacerbation Hypertension Anemia of chronic kidney disease Mild proteinuria, urine protein creatinine ratio 1 hematuria recs hold jardiance,spironolactone,--bp low gentle lasix urology planning cystoscopy +/-TURP Plan discussed with: Other Dietary Evaluation Review Comments: 1) Ensure Enlive 240ml BID 2) Monitor PO intake, lab values, weight trend, and I/O Expected Outcomes/Goals: To gain/maintain weight Wound to improve Fu 3-5 days LIANE MOSQUERA MD Nov 16, 2024 16:06
[2024-11-16] MEDS: FUROSEMIDE 20 MG/2 ML VIAL IV SCH (16:15)
[2024-11-17] VITALS (10 sets, daily range): BP systolic 91–103; BP diastolic 53–61; PULSE 68–114; RESP 13–20; TEMP 97.4–98.8; O2SAT 92–100
[2024-11-17 06:43] LABS: INR 1.17 (0.9-1.15); Partial Thromboplastin Time 34.7 SEC (24.5-34.5); Prothrombin Time 12.2 sec (9.3-11.8)
--- NOTE | 2024-11-17 12:25 | DVHPN2 ---
Subjective The patient is seen and examined at bedside. Very anxious today. Complain of not feeling so good. Continuing to have gross hematuria Reviewed: Care Plan, H&P, Labs, Medications, Previous Orders, Radiology Changes from previous H/P or p: No Changes Objective Vitals Vital Signs Date Time Temp Pulse Resp B/P (MAP) Pulse Ox O2 Delivery O2 Flow Rate FiO2 11/17/24 10:34 105/66 11/17/24 10:00 96 Nasal Cannula* 2 28 11/17/24 09:29 97.4 70 20 97.4 Intake/Output Intake and Output 11/17/24 07:00 Intake Total 750 ml Output Total 1800 ml Balance -1050 ml Intake Oral 450 ml IV Total 300 ml Output Urine Total 1800 ml # Bowel Movements 2 General Appearance: Alert, Cooperative, No acute distress HEENT: Atraumatic, PERRLA, EOMI, Mucous membr. moist/pink Neck: Supple Lungs: Clear to auscultation, Normal air movement Cardiovascular: Regular rate, Normal S1, Normal S2, No murmurs, Gallops, Rubs Abdomen: Normal bowel sounds, Soft, No tenderness Neuro: Strength at 5/5 X4 ext Psych/Mental Status: Mental status NL Medications Current Medications Medications Dose Ordered Sig/Louie Route Start Time Stop Time Status Last Admin Dose Admin Ceftriaxone Sodium 50 ml @ 100 mls/hr DAILY@09 IV 11/10/24 09:00 11/17/24 10:20 100 MLS/HR Azithromycin 250 ml @ 125 mls/hr DAILY IV 11/10/24 10:00 11/17/24 10:36 125 MLS/HR Sennosides 8.6 mg DAILYP PRN PO 11/09/24 11:30 11/14/24 10:17 8.6 MG Tamsulosin HCl 0.4 mg DAILY PO 11/10/24 10:00 11/17/24 10:20 0.4 MG Metoprolol Tartrate 25 mg DAILY PO 11/10/24 10:00 Hold Sodium Chloride 10 ml Q8HR IV 11/09/24 14:00 11/17/24 05:48 10 ML Docusate Sodium 100 mg BIDPRN PRN PO 11/09/24 11:30 11/15/24 22:26 100 MG Acetaminophen 650 mg Q6HP PRN PO 11/09/24 11:30 11/15/24 13:17 650 MG Acetaminophen/ Hydrocodone Bitart 1 tab Q4HP PRN PO 11/09/24 11:30 11/16/24 21:08 1 TAB Ondansetron HCl 4 mg Q4HP PRN IV 11/09/24 11:30 Lorazepam 0.5 mg Q8HP PRN PO 11/10/24 10:30 11/15/24 22:26 0.5 MG Albuterol 2.5 mg Q4HPRN PRN NEB 11/12/24 02:45 Ipratropium [place] 0.5 mg Q4HPRN PRN NEB 11/12/24 02:45 Melatonin 10 mg HS PRN PO 11/12/24 22:00 11/15/24 21:28 10 MG Hydroxychloroquine Sulfate 200 mg DAILY PO 11/13/24 10:00 11/17/24 10:20 200 MG Furosemide 20 mg DAILY IV 11/16/24 16:15 11/17/24 10:34 20 MG Laboratory Results Laboratory Tests 11/14/24 09:45 11/16/24 05:55 Coagulation Test 11/17/24 05:33 Prothrombin Time 12.2 sec (9.3-11.8) H Prothrombin Time INR 1.17 (0.9-1.15) H Activated Partial Thromboplast Time 34.7 SEC (24.5-34.5) H Urinalysis Test 11/09/24 11:52 11/10/24 15:19 Urine Amorphous Crystals Few /hpf (None Seen) Urine Color Yellow (Yellow) Urine Clarity Clear (Clear) Urine pH 5.5 (5.0-9.0) Urine Specific [place] 1.022 (1.001-1.035) Urine Protein 1+ (Negative) H Urine Ketones Negative (Negative) Urine Blood Negative /uL (Negative) Urine Nitrite Negative (Negative) Urine Bilirubin Negative (Negative) Urine Urobilinogen Normal mg/dL (Negative) Urine Leukocyte Esterase Negative /uL (Negative) Urine RBC 2 /hpf (0 - 3) Urine Microscopic WBC 2 /HPF (0-3) Urine Squamous Epithelial Cells None seen /hpf (<5) Urine Bacteria None seen /hpf (None Seen) Urine Creatinine 58.40 mg/dL (30.0-125.0) Urine Protein/Creatinine Ratio 1.08 Urine Sodium 49 mmol/L (40-220) Urine Glucose Normal mg/dL (Normal) Urine Total Protein 63.2 mg/dL (1-14) H Microbiology Microbiology Date/Time Source Procedure Growth Status 11/12/24 00:13 Sputum Gram Stain - Final Resulted 11/12/24 00:13 Sputum Respiratory Culture - Preliminary Resulted 11/10/24 10:04 Nose MRSA Screen - Final Complete Assessment/Plan Assessment/Plan Pressure ulcer Generalized fatigue Lower lung opacity secondary to Gram-positive pneumonia Atrial fibrillation Anxiety Gross hematuria Continuing current management. Continuing with IV Rocephin. I will add Zithromax to his regimen. Continuing with seen atrial fibrillation medication Continuing and anxiety med. I will increase Ativan to 1 mg p.o. Q eight p.r.n. for anxiety. Continuing wound care Cystoscopy today Continuing to flush Alvarez Hold Xarelto for now Hospice evaluation consult This medical document was created using an electronic medical record system with [employer] computerized dictation system. Although this document has been carefully reviewed, there may still be some phonetic and typographical errors. These areas are purely typographical due to imperfections of the software programs, and do not reflect any compromise in the patient's medical care. Plan discussed with: Patient My Orders Orders - CONNIE COLON MD Procedure Category Date Status Time * Wound Consult CONS 11/17/24 Transmitted Date of Service: Nov 17, 2024 Billing Provider: CONNIE COLON MD Common Visit Codes: [id number] INP/OBS CARE(HIGH) CONNIE COLON MD Nov 17, 2024 12:25
[2024-11-17] MEDS ORDERED: MIDAZOLAM HCL 2MG/2ML 2ml VIAL (1mg/ml) ONE (12:32)
[2024-11-17] MEDS ORDERED: fentaNYL CITRATE 100 MCG/2 ML VL ONE (12:32)
[2024-11-17] MEDS ORDERED: SODIUM CHLORIDE LOCK 10 ML ONE (12:33)
[2024-11-17] MEDS ORDERED: BUPIVACAINE/DEXTROSE MPF 0.75% 2 ML AMP IT ONE (12:35)
[2024-11-17] MEDS ORDERED: ONDANSETRON HCL 4 MG/2 ML VIAL IV PRN (14:30)
[2024-11-17] MEDS ORDERED: HYDROmorphone HCL 2 MG/ML VL/or syr IV PRN (14:30)
--- NOTE | 2024-11-17 14:53 | DVHNC2 ---
Procedure - OPERATIVE REPORT Pre-op. Diagnosis: BPH / Urinary retention LUTs/FULLER Gross hematuria Post-op. 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 The indications, risks, complications, alternatives and benefits of transurethral vaporization/resection of prostate gland are discussed with patient. All questions were encouraged and answered. He is aware of specific risk/complications including but not limited to infection, bleeding, urinary incontinence, impotence, retrograde ejaculation, recurrent scar formation (stric tures) and possible need for additional therapy(-ies). He is also aware of the alternative of this procedure including conservative management, medical therapy, minimally invasive procedures such as TUNA, TUMT, Urolift, and other forms of prostatectomy such as laser enucleation and open simple prostatectomy. Patient is competent and understands the discussion. He elected to proceed. Details of Procedure: Button TURP: After administration of anesthesia in the lithotomy position, area of genitalia was prepped and draped in usual sterile fashion. The 26F resectoscope sheath is introduced into the bladder under direct vision. Using the Olympus bipolar Button resecting element and NS irrigation, prostate gland was electrodesiccated in systematic fashion using the standard cautery settings from the bladder neck to verumontanum, taking care not to injure the external sphincter. The ureteric orifices are noted and avoided of any thermal injury. [address] Alvarez catheter is placed for postoperative irrigation and drainage of bladder. Patient tolerated the procedure well. He was awaken and taken to RR in stable condition. All instrument counts were correct at the end of the procedure. Specimens: The prostatic tissue specimens are sent to pathology for evaluation. Complications: None Findings: EBL: < 20ml DELANEY PALMA MD Nov 17, 2024 14:53
--- NOTE | 2024-11-17 18:38 | DVHPN2 ---
Progress Note Date Seen: Nov 17, 2024 Medical Necessity Reason Pt with a Central, PICC or Fol: Yes The following are medically ne: Alvarez Catheter Subjective Patient reports: No new complaints Review of Systems: Deferred Objective vital signs Vital Sign Date Time Temp Pulse Resp B/P (MAP) Pulse Ox O2 Delivery O2 Flow Rate FiO2 11/17/24 10:34 105/66 11/17/24 10:00 96 Nasal Cannula* 2 28 11/17/24 09:29 97.4 70 20 97.4 Total Intake and Output 11/16/24 11/16/24 11/17/24 15:00 23:00 07:00 Intake Total 300 ml 300 ml 150 ml Output Total 600 ml 1200 ml Balance 300 ml -300 ml -1050 ml medications Current Medications Medications Dose Ordered Sig/Louie Route Start Time Stop Time Status Last Admin Dose Admin Ceftriaxone Sodium 50 ml @ 100 mls/hr DAILY@09 IV 11/10/24 09:00 11/17/24 10:20 100 MLS/HR Azithromycin 250 ml @ 125 mls/hr DAILY IV 11/10/24 10:00 11/17/24 10:36 125 MLS/HR Sennosides 8.6 mg DAILYP PRN PO 11/09/24 11:30 11/14/24 10:17 8.6 MG Tamsulosin HCl 0.4 mg DAILY PO 11/10/24 10:00 11/17/24 10:20 0.4 MG Metoprolol Tartrate 25 mg DAILY PO 11/10/24 10:00 Hold Sodium Chloride 10 ml Q8HR IV 11/09/24 14:00 11/17/24 14:00 10 ML Docusate Sodium 100 mg BIDPRN PRN PO 11/09/24 11:30 11/15/24 22:26 100 MG Acetaminophen 650 mg Q6HP PRN PO 11/09/24 11:30 11/15/24 13:17 650 MG Acetaminophen/ Hydrocodone Bitart 1 tab Q4HP PRN PO 11/09/24 11:30 11/16/24 21:08 1 TAB Ondansetron HCl 4 mg Q4HP PRN IV 11/09/24 11:30 Lorazepam 0.5 mg Q8HP PRN PO 11/10/24 10:30 11/15/24 22:26 0.5 MG Albuterol 2.5 mg Q4HPRN PRN NEB 11/12/24 02:45 Ipratropium [place] 0.5 mg Q4HPRN PRN NEB 11/12/24 02:45 Melatonin 10 mg HS PRN PO 11/12/24 22:00 11/15/24 21:28 10 MG Hydroxychloroquine Sulfate 200 mg DAILY PO 11/13/24 10:00 11/17/24 10:20 200 MG Furosemide 20 mg DAILY IV 11/16/24 16:15 11/17/24 10:34 20 MG laboratory and microbiology Laboratory Tests 11/16/24 05:55 11/14/24 09:45 Test 11/16/24 05:55 Range/Units Serum Glucose 75 74-106 mg/dL Microbiology Date/Time Source Procedure Growth Status 11/12/24 00:13 Sputum Gram Stain - Final Resulted 11/12/24 00:13 Sputum Respiratory Culture - Preliminary Resulted 11/10/24 10:04 Nose MRSA Screen - Final Complete Problem List/Assessment/Plan Problem List/Assessment/Plan Acute kidney injury superimposed Chronic Kidney Disease stage IIIA secondary hemodynamic mediated Acute on chronic respiratory failure Atrial fibrillation with RVR Congestive heart failure exacerbation Hypertension Anemia of chronic kidney disease Mild proteinuria, urine protein creatinine ratio 1 hematuria recs hold jardiance,spironolactone,--bp low gentle lasix urology procedure today Plan discussed with: Other Dietary Evaluation Review Comments: 1) Ensure Enlive 240ml BID 2) Monitor PO intake, lab values, weight trend, and I/O Expected Outcomes/Goals: To gain/maintain weight Wound to improve Fu 3-5 days LIANE MOSQUERA MD Nov 17, 2024 18:38
[2024-11-18] VITALS (11 sets, daily range): BP systolic 95–109; BP diastolic 44–69; PULSE 68–76; RESP 16–18; TEMP 97.8–98.6; O2SAT 89–99
--- NOTE | 2024-11-18 07:42 | DVHPN2 ---
Progress Note - Dictate Date Seen: Nov 18, 2024 Medical Necessity Reason Pt with a Central, PICC or Fol: Yes The following are medically ne: [place] Catheter Medical Necessity Reason POD#1 s/p TURP Subjective No complaints vital signs Vital Sign Date Time Temp Pulse Resp B/P (MAP) Pulse Ox O2 Delivery O2 Flow Rate FiO2 11/18/24 05:00 97.8 69 18 95/44 (61) 97 97.8 11/17/24 21:00 Room Air* 0 21 Total Intake and Output 11/17/24 11/17/24 11/18/24 15:00 23:00 07:00 Intake Total 325 ml 410 ml Output Total 650 ml 6600 ml Balance -325 ml -6190 ml medications Current Medications Medications Dose Ordered Sig/Louie Route Start Time Stop Time Status Last Admin Dose Admin Ceftriaxone Sodium 50 ml @ 100 mls/hr DAILY@09 IV 11/10/24 09:00 11/17/24 10:20 100 MLS/HR Azithromycin 250 ml @ 125 mls/hr DAILY IV 11/10/24 10:00 11/17/24 10:36 125 MLS/HR Sennosides 8.6 mg DAILYP PRN PO 11/09/24 11:30 11/14/24 10:17 8.6 MG Tamsulosin HCl 0.4 mg DAILY PO 11/10/24 10:00 11/17/24 10:20 0.4 MG Metoprolol Tartrate 25 mg DAILY PO 11/10/24 10:00 Hold Sodium Chloride 10 ml Q8HR IV 11/09/24 14:00 11/18/24 04:39 10 ML Docusate Sodium 100 mg BIDPRN PRN PO 11/09/24 11:30 11/18/24 00:08 100 MG Acetaminophen 650 mg Q6HP PRN PO 11/09/24 11:30 11/18/24 00:08 650 MG Acetaminophen/ Hydrocodone Bitart 1 tab Q4HP PRN PO 11/09/24 11:30 11/18/24 03:32 1 TAB Ondansetron HCl 4 mg Q4HP PRN IV 11/09/24 11:30 Lorazepam 0.5 mg Q8HP PRN PO 11/10/24 10:30 11/15/24 22:26 0.5 MG Albuterol 2.5 mg Q4HPRN PRN NEB 11/12/24 02:45 Ipratropium [place] 0.5 mg Q4HPRN PRN NEB 11/12/24 02:45 Melatonin 10 mg HS PRN PO 11/12/24 22:00 11/18/24 01:25 10 MG Hydroxychloroquine Sulfate 200 mg DAILY PO 11/13/24 10:00 11/17/24 10:20 200 MG Furosemide 20 mg DAILY IV 11/16/24 16:15 11/17/24 10:34 20 MG objective Mathis in place with CBI off. Urine clear laboratory and microbiology Laboratory Tests 11/16/24 05:55 11/14/24 09:45 Test 11/16/24 05:55 Range/Units Serum Glucose 75 74-106 mg/dL Problem List POD#1 s/p TURP Assessment/Plan d/c mathis on POD#2 Dietary Evaluation Review Comments: 1) Ensure Enlive 240ml BID 2) Monitor PO intake, lab values, weight trend, and I/O Expected Outcomes/Goals: To gain/maintain weight Wound to improve Fu 3-5 days Plan discussed with: Patient, Other DELANEY PALMA MD Nov 18, 2024 07:42
--- NOTE | 2024-11-18 10:01 | DVHPN2 ---
Subjective The patient is seen and examined at bedside. Alvarez removed. Patient is status post cystoscopy Reviewed: Care Plan, H&P, Labs, Medications, Previous Orders, Radiology Changes from previous H/P or p: No Changes Objective Vitals Vital Signs Date Time Temp Pulse Resp B/P (MAP) Pulse Ox O2 Delivery O2 Flow Rate FiO2 11/18/24 09:12 98/57 11/18/24 09:00 97.9 68 18 98 97.9 11/17/24 21:00 Room Air* 0 21 Intake/Output Intake and Output 11/18/24 07:00 Intake Total 735 ml Output Total 7250 ml Balance -6515 ml Intake Oral 410 ml IV Total 325 ml Output Urine Total 7250 ml # Voids 3 General Appearance: Alert, Cooperative, No acute distress HEENT: Atraumatic, PERRLA, EOMI, Mucous membr. moist/pink Neck: Supple Lungs: Clear to auscultation, Normal air movement Cardiovascular: Regular rate, Normal S1, Normal S2, No murmurs, Gallops, Rubs Abdomen: Normal bowel sounds, Soft, No tenderness Neuro: Strength at 5/5 X4 ext Psych/Mental Status: Mental status NL Medications Current Medications Medications Dose Ordered Sig/Louie Route Start Time Stop Time Status Last Admin Dose Admin Ceftriaxone Sodium 50 ml @ 100 mls/hr DAILY@09 IV 11/10/24 09:00 11/18/24 09:12 100 MLS/HR Azithromycin 250 ml @ 125 mls/hr DAILY IV 11/10/24 10:00 11/18/24 09:12 125 MLS/HR Sennosides 8.6 mg DAILYP PRN PO 11/09/24 11:30 11/14/24 10:17 8.6 MG Tamsulosin HCl 0.4 mg DAILY PO 11/10/24 10:00 11/18/24 09:13 0.4 MG Metoprolol Tartrate 25 mg DAILY PO 11/10/24 10:00 Hold Sodium Chloride 10 ml Q8HR IV 11/09/24 14:00 11/18/24 04:39 10 ML Docusate Sodium 100 mg BIDPRN PRN PO 11/09/24 11:30 11/18/24 00:08 100 MG Acetaminophen 650 mg Q6HP PRN PO 11/09/24 11:30 11/18/24 00:08 650 MG Acetaminophen/ Hydrocodone Bitart 1 tab Q4HP PRN PO 11/09/24 11:30 11/18/24 03:32 1 TAB Ondansetron HCl 4 mg Q4HP PRN IV 11/09/24 11:30 Lorazepam 0.5 mg Q8HP PRN PO 11/10/24 10:30 11/15/24 22:26 0.5 MG Albuterol 2.5 mg Q4HPRN PRN NEB 11/12/24 02:45 Ipratropium [place] 0.5 mg Q4HPRN PRN NEB 11/12/24 02:45 Melatonin 10 mg HS PRN PO 11/12/24 22:00 11/18/24 01:25 10 MG Hydroxychloroquine Sulfate 200 mg DAILY PO 11/13/24 10:00 11/18/24 09:13 200 MG Furosemide 20 mg DAILY IV 11/16/24 16:15 11/17/24 10:34 20 MG Laboratory Results Laboratory Tests 11/14/24 09:45 11/16/24 05:55 Urinalysis Test 11/09/24 11:52 11/10/24 15:19 Urine Amorphous Crystals Few /hpf (None Seen) Urine Color Yellow (Yellow) Urine Clarity Clear (Clear) Urine pH 5.5 (5.0-9.0) Urine Specific [place] 1.022 (1.001-1.035) Urine Protein 1+ (Negative) H Urine Ketones Negative (Negative) Urine Blood Negative /uL (Negative) Urine Nitrite Negative (Negative) Urine Bilirubin Negative (Negative) Urine Urobilinogen Normal mg/dL (Negative) Urine Leukocyte Esterase Negative /uL (Negative) Urine RBC 2 /hpf (0 - 3) Urine Microscopic WBC 2 /HPF (0-3) Urine Squamous Epithelial Cells None seen /hpf (<5) Urine Bacteria None seen /hpf (None Seen) Urine Creatinine 58.40 mg/dL (30.0-125.0) Urine Protein/Creatinine Ratio 1.08 Urine Sodium 49 mmol/L (40-220) Urine Glucose Normal mg/dL (Normal) Urine Total Protein 63.2 mg/dL (1-14) H Microbiology Microbiology Date/Time Source Procedure Growth Status 11/12/24 00:13 Sputum Gram Stain - Final Resulted 11/12/24 00:13 Sputum Respiratory Culture - Preliminary Resulted 11/10/24 10:04 Nose MRSA Screen - Final Complete Labs and/or images reviewed: Labs reviewed by me Assessment/Plan Assessment/Plan Pressure ulcer Generalized fatigue Lower lung opacity secondary to Gram-positive pneumonia Atrial fibrillation Anxiety Gross hematuria Continuing current management. Continuing with IV Rocephin. I will add Zithromax to his regimen. Continuing with seen atrial fibrillation medication Continuing and anxiety med. I will increase Ativan to 1 mg p.o. Q eight p.r.n. for anxiety. Continuing wound care Status post cystoscopy done. Now off Alvarez Hold Xarelto for now Hospice evaluation consult This medical document was created using an electronic medical record system with [employer] direct computerized dictation system. Although this document has been carefully reviewed, there may still be some phonetic and typographical errors. These areas are purely typographical due to imperfections of the software programs, and do not reflect any compromise in the patient's medical care. Plan discussed with: Patient My Orders Orders - CONNIE COLON MD Procedure Category Date Status Time Cleanse Wound With CHEPE 11/17/24 In Process Wound Clean 10:59 Date of Service: Nov 18, 2024 Billing Provider: CONNIE COLON MD Common Visit Codes: [id number] INP/OBS CARE(HIGH) CONNIE COLON MD Nov 18, 2024 10:01
--- NOTE | 2024-11-18 11:29 | DVHPN2 ---
Progress Note Date Seen: Nov 18, 2024 Medical Necessity Reason Pt with a Central, PICC or Fol: Yes The following are medically ne: Alvarez Catheter Subjective Patient reports: No new complaints Review of Systems: Deferred Objective vital signs Vital Sign Date Time Temp Pulse Resp B/P (MAP) Pulse Ox O2 Delivery O2 Flow Rate FiO2 11/18/24 10:53 93 Room Air 11/18/24 10:53 0 21 11/18/24 09:12 98/57 11/18/24 09:00 97.9 68 18 97.9 Total Intake and Output 11/17/24 11/17/24 11/18/24 15:00 23:00 07:00 Intake Total 325 ml 410 ml Output Total 650 ml 6600 ml Balance -325 ml -6190 ml medications Current Medications Medications Dose Ordered Sig/Louie Route Start Time Stop Time Status Last Admin Dose Admin Ceftriaxone Sodium 50 ml @ 100 mls/hr DAILY@09 IV 11/10/24 09:00 11/18/24 09:12 100 MLS/HR Azithromycin 250 ml @ 125 mls/hr DAILY IV 11/10/24 10:00 11/18/24 09:12 125 MLS/HR Sennosides 8.6 mg DAILYP PRN PO 11/09/24 11:30 11/14/24 10:17 8.6 MG Tamsulosin HCl 0.4 mg DAILY PO 11/10/24 10:00 11/18/24 09:13 0.4 MG Metoprolol Tartrate 25 mg DAILY PO 11/10/24 10:00 Hold Sodium Chloride 10 ml Q8HR IV 11/09/24 14:00 11/18/24 04:39 10 ML Docusate Sodium 100 mg BIDPRN PRN PO 11/09/24 11:30 11/18/24 00:08 100 MG Acetaminophen 650 mg Q6HP PRN PO 11/09/24 11:30 11/18/24 00:08 650 MG Acetaminophen/ Hydrocodone Bitart 1 tab Q4HP PRN PO 11/09/24 11:30 11/18/24 03:32 1 TAB Ondansetron HCl 4 mg Q4HP PRN IV 11/09/24 11:30 Lorazepam 0.5 mg Q8HP PRN PO 11/10/24 10:30 11/15/24 22:26 0.5 MG Albuterol 2.5 mg Q4HPRN PRN NEB 11/12/24 02:45 Ipratropium [place] 0.5 mg Q4HPRN PRN NEB 11/12/24 02:45 Melatonin 10 mg HS PRN PO 11/12/24 22:00 11/18/24 01:25 10 MG Hydroxychloroquine Sulfate 200 mg DAILY PO 11/13/24 10:00 11/18/24 09:13 200 MG Furosemide 20 mg DAILY IV 11/16/24 16:15 11/17/24 10:34 20 MG Examination: GENERAL:Normal, :Abnormal laboratory and microbiology Laboratory Tests 11/16/24 05:55 11/14/24 09:45 Test 11/16/24 05:55 Range/Units Serum Glucose 75 74-106 mg/dL Microbiology Date/Time Source Procedure Growth Status 11/12/24 00:13 Sputum Gram Stain - Final Resulted 11/12/24 00:13 Sputum Respiratory Culture - Preliminary Resulted 11/10/24 10:04 Nose MRSA Screen - Final Complete Problem List/Assessment/Plan Problem List/Assessment/Plan Acute kidney injury superimposed Chronic Kidney Disease stage IIIA secondary hemodynamic mediated Acute on chronic respiratory failure Atrial fibrillation with RVR Congestive heart failure exacerbation Hypertension Anemia of chronic kidney disease Mild proteinuria, urine protein creatinine ratio 1 hematuria recs hold jardiance,spironolactone,--bp low gentle lasix urology procedure noted labs pending Plan discussed with: Other Dietary Evaluation Review Comments: 1) Ensure Enlive 240ml BID 2) Monitor PO intake, lab values, weight trend, and I/O Expected Outcomes/Goals: To gain/maintain weight Wound to improve Fu 3-5 days LIANE MOSQUERA MD Nov 18, 2024 11:29
[2024-11-18 13:12] LABS: Chloride 99 mmol/L (98-107); Potassium 4.1 mmol/L (3.5-5.1); Sodium 137 mmol/L (136-145)
[2024-11-18 13:13] LABS: Anion Gap 5 (5-15)
[2024-11-18 13:14] LABS: Calcium 8.5 mg/dL (8.7-10.4); Carbon Dioxide 33 mmol/L (20-31)
[2024-11-18 13:18] LABS: BUN/Creatinine Ratio 23.3 (10.0-20.0)
[2024-11-18 13:23] LABS: Blood Urea Nitrogen 24 mg/dL (9-23); Glucose 133 mg/dL (74-106)
[2024-11-19] VITALS (10 sets, daily range): BP systolic 97–122; BP diastolic 54–63; PULSE 71–79; RESP 16–18; TEMP 97.5–98.1; O2SAT 96–99
[2024-11-19 06:08] LABS: Anion Gap 4 (5-15); Potassium 4.5 mmol/L (3.5-5.1); Sodium 137 mmol/L (136-145)
[2024-11-19 06:09] LABS: Calcium 8.7 mg/dL (8.7-10.4)
[2024-11-19 06:14] LABS: BUN/Creatinine Ratio 22.2 (10.0-20.0); Blood Urea Nitrogen 22 mg/dL (9-23)
[2024-11-19 06:37] LABS: Carbon Dioxide 37 mmol/L (20-31); Chloride 96 mmol/L (98-107); Glucose 71 mg/dL (74-106)
--- NOTE | 2024-11-19 08:57 | DVHPN2 ---
Progress Note Date Seen: Nov 19, 2024 Medical Necessity Reason Pt with a Central, PICC or Fol: Yes The following are medically ne: Alvarez Catheter Subjective Patient reports: No new complaints Review of Systems: Deferred Objective vital signs Vital Sign Date Time Temp Pulse Resp B/P (MAP) Pulse Ox O2 Delivery O2 Flow Rate FiO2 11/19/24 05:43 96 Nasal Cannula 2.0 11/19/24 05:43 28 11/19/24 05:00 97.8 73 18 101/62 (75) 97.8 Total Intake and Output 11/18/24 11/18/24 11/19/24 15:00 23:00 07:00 Intake Total 300 ml 520 ml 420 ml Output Total 1000 ml 700 ml Balance 300 ml -480 ml -280 ml medications Current Medications Medications Dose Ordered Sig/Louie Route Start Time Stop Time Status Last Admin Dose Admin Ceftriaxone Sodium 50 ml @ 100 mls/hr DAILY@09 IV 11/10/24 09:00 11/18/24 09:12 100 MLS/HR Azithromycin 250 ml @ 125 mls/hr DAILY IV 11/10/24 10:00 11/18/24 09:12 125 MLS/HR Sennosides 8.6 mg DAILYP PRN PO 11/09/24 11:30 11/14/24 10:17 8.6 MG Tamsulosin HCl 0.4 mg DAILY PO 11/10/24 10:00 11/18/24 09:13 0.4 MG Metoprolol Tartrate 25 mg DAILY PO 11/10/24 10:00 Hold Sodium Chloride 10 ml Q8HR IV 11/09/24 14:00 11/19/24 06:00 10 ML Docusate Sodium 100 mg BIDPRN PRN PO 11/09/24 11:30 11/18/24 00:08 100 MG Acetaminophen 650 mg Q6HP PRN PO 11/09/24 11:30 11/18/24 21:54 650 MG Ondansetron HCl 4 mg Q4HP PRN IV 11/09/24 11:30 Lorazepam 0.5 mg Q8HP PRN PO 11/10/24 10:30 11/19/24 00:01 0.5 MG Albuterol 2.5 mg Q4HPRN PRN NEB 11/12/24 02:45 Ipratropium [place] 0.5 mg Q4HPRN PRN NEB 11/12/24 02:45 Melatonin 10 mg HS PRN PO 11/12/24 22:00 11/18/24 01:25 10 MG Hydroxychloroquine Sulfate 200 mg DAILY PO 11/13/24 10:00 11/18/24 09:13 200 MG Furosemide 20 mg DAILY IV 11/16/24 16:15 11/17/24 10:34 20 MG laboratory and microbiology Laboratory Tests 11/19/24 05:28 11/14/24 09:45 Test 11/19/24 05:28 Range/Units Serum Glucose 71 L 74-106 mg/dL Microbiology Date/Time Source Procedure Growth Status 11/12/24 00:13 Sputum Gram Stain - Final Resulted 11/12/24 00:13 Sputum Respiratory Culture - Preliminary Resulted 11/10/24 10:04 Nose MRSA Screen - Final Complete Problem List/Assessment/Plan Problem List/Assessment/Plan Acute kidney injury superimposed Chronic Kidney Disease stage IIIA secondary hemodynamic mediated Acute on chronic respiratory failure Atrial fibrillation with RVR Congestive heart failure exacerbation Hypertension Anemia of chronic kidney disease Mild proteinuria, urine protein creatinine ratio 1 hematuria recs hold jardiance,spironolactone,--bp low--resume if blood pressure improves gentle lasix urology procedure noted renal function better I will sign off this case please reconsult if needed Outpatient Acute kidney injury follow-up Congestive heart failure management per cardiology Plan discussed with: Patient Dietary Evaluation Review Comments: 1) Ensure Enlive 240ml BID 2) Monitor PO intake, lab values, weight trend, and I/O Expected Outcomes/Goals: To gain/maintain weight Wound to improve Fu 3-5 days LIANE MOSQUERA MD Nov 19, 2024 08:57
--- NOTE | 2024-11-19 11:24 | DVHPN2 ---
Subjective The patient is seen and examined at bedside. Alvarez removed. Patient is status post TURP, feel better. However, when the RN get him up and walk, he desat to 88% Reviewed: Care Plan, H&P, Labs, Medications, Previous Orders, Radiology Changes from previous H/P or p: No Changes Objective Vitals Vital Signs Date Time Temp Pulse Resp B/P (MAP) Pulse Ox O2 Delivery O2 Flow Rate FiO2 11/19/24 10:00 Nasal Cannula* 3 32 11/19/24 09:00 114/65 11/19/24 09:00 97.7 79 16 98 97.7 Intake/Output Intake and Output 11/19/24 07:00 Intake Total 1240 ml Output Total 1700 ml Balance -460 ml Intake Oral 940 ml IV Total 300 ml Output Urine Total 1700 ml General Appearance: Alert, Cooperative, No acute distress HEENT: Atraumatic, PERRLA, EOMI, Mucous membr. moist/pink Neck: Supple Lungs: Clear to auscultation, Normal air movement Cardiovascular: Regular rate, Normal S1, Normal S2, No murmurs, Gallops, Rubs Abdomen: Normal bowel sounds, Soft, No tenderness Neuro: Strength at 5/5 X4 ext Psych/Mental Status: Mental status NL Medications Current Medications Medications Dose Ordered Sig/Louie Route Start Time Stop Time Status Last Admin Dose Admin Ceftriaxone Sodium 50 ml @ 100 mls/hr DAILY@09 IV 11/10/24 09:00 11/19/24 08:58 100 MLS/HR Azithromycin 250 ml @ 125 mls/hr DAILY IV 11/10/24 10:00 11/19/24 08:58 125 MLS/HR Sennosides 8.6 mg DAILYP PRN PO 11/09/24 11:30 11/14/24 10:17 8.6 MG Tamsulosin HCl 0.4 mg DAILY PO 11/10/24 10:00 11/19/24 09:00 0.4 MG Metoprolol Tartrate 25 mg DAILY PO 11/10/24 10:00 Hold Sodium Chloride 10 ml Q8HR IV 11/09/24 14:00 11/19/24 06:00 10 ML Docusate Sodium 100 mg BIDPRN PRN PO 11/09/24 11:30 11/18/24 00:08 100 MG Acetaminophen 650 mg Q6HP PRN PO 11/09/24 11:30 11/18/24 21:54 650 MG Ondansetron HCl 4 mg Q4HP PRN IV 11/09/24 11:30 Lorazepam 0.5 mg Q8HP PRN PO 11/10/24 10:30 11/19/24 00:01 0.5 MG Albuterol 2.5 mg Q4HPRN PRN NEB 11/12/24 02:45 Ipratropium [place] 0.5 mg Q4HPRN PRN NEB 11/12/24 02:45 Melatonin 10 mg HS PRN PO 11/12/24 22:00 11/18/24 01:25 10 MG Hydroxychloroquine Sulfate 200 mg DAILY PO 11/13/24 10:00 11/19/24 09:00 200 MG Furosemide 20 mg DAILY IV 11/16/24 16:15 11/19/24 09:00 20 MG Laboratory Results Laboratory Tests 11/14/24 09:45 11/19/24 05:28 Chemistry Test 11/18/24 12:46 11/19/24 05:28 Calcium Level 8.5 mg/dL (8.7-10.4) L 8.7 mg/dL (8.7-10.4) Urinalysis Test 11/09/24 11:52 11/10/24 15:19 Urine Amorphous Crystals Few /hpf (None Seen) Urine Color Yellow (Yellow) Urine Clarity Clear (Clear) Urine pH 5.5 (5.0-9.0) Urine Specific [place] 1.022 (1.001-1.035) Urine Protein 1+ (Negative) H Urine Ketones Negative (Negative) Urine Blood Negative /uL (Negative) Urine Nitrite Negative (Negative) Urine Bilirubin Negative (Negative) Urine Urobilinogen Normal mg/dL (Negative) Urine Leukocyte Esterase Negative /uL (Negative) Urine RBC 2 /hpf (0 - 3) Urine Microscopic WBC 2 /HPF (0-3) Urine Squamous Epithelial Cells None seen /hpf (<5) Urine Bacteria None seen /hpf (None Seen) Urine Creatinine 58.40 mg/dL (30.0-125.0) Urine Protein/Creatinine Ratio 1.08 Urine Sodium 49 mmol/L (40-220) Urine Glucose Normal mg/dL (Normal) Urine Total Protein 63.2 mg/dL (1-14) H Microbiology Microbiology Date/Time Source Procedure Growth Status 11/12/24 00:13 Sputum Gram Stain - Final Resulted 11/12/24 00:13 Sputum Respiratory Culture - Preliminary Resulted 11/10/24 10:04 Nose MRSA Screen - Final Complete Labs and/or images reviewed: Labs reviewed by me Assessment/Plan Assessment/Plan Acute respiratory failure Pressure ulcer Generalized fatigue Lower lung opacity secondary to Gram-positive pneumonia Atrial fibrillation Anxiety Gross hematuria Continuing current management. Continuing with IV Rocephin. I will add Zithromax to his regimen. Continuing with seen atrial fibrillation medication Continuing and anxiety med. I will increase Ativan to 1 mg p.o. Q eight p.r.n. for anxiety. Continuing wound care Status post cystoscopy done. Now off Alvarez Hold Xarelto for now Hospice evaluation consult ABG to see if patient need oxygen at home. Discharge planning. This medical document was created using an electronic medical record system with [employer] computerized dictation system. Although this document has been carefully reviewed, there may still be some phonetic and typographical errors. These areas are purely typographical due to imperfections of the software programs, and do not reflect any compromise in the patient's medical care. Plan discussed with: Patient Date of Service: Nov 19, 2024 Billing Provider: CONNIE COLON MD Common Visit Codes: [id number] INP/OBS CARE(HIGH) CONNIE COLON MD Nov 19, 2024 11:24
[2024-11-19 13:55] LABS: Base Excess 10.4 mmol/L (-2.0-3.0)
[2024-11-20] VITALS (13 sets, daily range): BP systolic 106–127; BP diastolic 53–66; PULSE 71–97; RESP 16–19; TEMP 97.6–98; O2SAT 94–100
--- NOTE | 2024-11-20 12:49 | DVHPN2 ---
Subjective The patient is seen and examined at bedside. Alvarez removed. Patient is status post TURP. The patient frustrated because he not getting any better. The patient is still very shortness a breath and weak Reviewed: Care Plan, H&P, Labs, Medications, Previous Orders, Radiology Changes from previous H/P or p: No Changes Objective Vitals Vital Signs Date Time Temp Pulse Resp B/P (MAP) Pulse Ox O2 Delivery O2 Flow Rate FiO2 11/20/24 10:00 98 Nasal Cannula 2.0 11/20/24 10:00 28 11/20/24 08:49 128/61 11/20/24 08:00 78 11/20/24 05:00 97.9 18 97.9 Intake/Output Intake and Output 11/20/24 07:00 Intake Total 820 ml Output Total 700 ml Balance 120 ml Intake Oral 520 ml IV Total 300 ml Output Urine Total 700 ml # Voids 3 General Appearance: Alert, Cooperative, No acute distress HEENT: Atraumatic, PERRLA, EOMI, Mucous membr. moist/pink Neck: Supple Lungs: Clear to auscultation, Normal air movement Cardiovascular: Regular rate, Normal S1, Normal S2, No murmurs, Gallops, Rubs Abdomen: Normal bowel sounds, Soft, No tenderness Neuro: Strength at 5/5 X4 ext Psych/Mental Status: Mental status NL Medications Current Medications Medications Dose Ordered Sig/Louie Route Start Time Stop Time Status Last Admin Dose Admin Ceftriaxone Sodium 50 ml @ 100 mls/hr DAILY@09 IV 11/10/24 09:00 11/20/24 08:48 100 MLS/HR Azithromycin 250 ml @ 125 mls/hr DAILY IV 11/10/24 10:00 11/20/24 08:48 125 MLS/HR Sennosides 8.6 mg DAILYP PRN PO 11/09/24 11:30 11/19/24 11:27 8.6 MG Tamsulosin HCl 0.4 mg DAILY PO 11/10/24 10:00 11/20/24 08:48 0.4 MG Metoprolol Tartrate 25 mg DAILY PO 11/10/24 10:00 Hold Sodium Chloride 10 ml Q8HR IV 11/09/24 14:00 11/20/24 06:10 10 ML Docusate Sodium 100 mg BIDPRN PRN PO 11/09/24 11:30 11/18/24 00:08 100 MG Acetaminophen 650 mg Q6HP PRN PO 11/09/24 11:30 11/20/24 08:48 650 MG Ondansetron HCl 4 mg Q4HP PRN IV 11/09/24 11:30 Lorazepam 0.5 mg Q8HP PRN PO 11/10/24 10:30 11/19/24 19:44 0.5 MG Albuterol 2.5 mg Q4HPRN PRN NEB 11/12/24 02:45 Ipratropium [place] 0.5 mg Q4HPRN PRN NEB 11/12/24 02:45 Melatonin 10 mg HS PRN PO 11/12/24 22:00 11/18/24 01:25 10 MG Hydroxychloroquine Sulfate 200 mg DAILY PO 11/13/24 10:00 11/20/24 08:48 200 MG Furosemide 20 mg DAILY IV 11/16/24 16:15 11/20/24 08:49 20 MG Laboratory Results Laboratory Tests 11/14/24 09:45 11/19/24 05:28 Urinalysis Test 11/09/24 11:52 11/10/24 15:19 Urine Amorphous Crystals Few /hpf (None Seen) Urine Color Yellow (Yellow) Urine Clarity Clear (Clear) Urine pH 5.5 (5.0-9.0) Urine Specific [place] 1.022 (1.001-1.035) Urine Protein 1+ (Negative) H Urine Ketones Negative (Negative) Urine Blood Negative /uL (Negative) Urine Nitrite Negative (Negative) Urine Bilirubin Negative (Negative) Urine Urobilinogen Normal mg/dL (Negative) Urine Leukocyte Esterase Negative /uL (Negative) Urine RBC 2 /hpf (0 - 3) Urine Microscopic WBC 2 /HPF (0-3) Urine Squamous Epithelial Cells None seen /hpf (<5) Urine Bacteria None seen /hpf (None Seen) Urine Creatinine 58.40 mg/dL (30.0-125.0) Urine Protein/Creatinine Ratio 1.08 Urine Sodium 49 mmol/L (40-220) Urine Glucose Normal mg/dL (Normal) Urine Total Protein 63.2 mg/dL (1-14) H Blood Gas Results Test 11/19/24 13:48 Arterial Blood pH 7.492 (7.350-7.450) FiO2 % 21.0 Microbiology Microbiology Date/Time Source Procedure Growth Status 11/12/24 00:13 Sputum Gram Stain - Final Resulted 11/12/24 00:13 Sputum Respiratory Culture - Preliminary Resulted 11/10/24 10:04 Nose MRSA Screen - Final Complete Labs and/or images reviewed: Labs reviewed by me Assessment/Plan Assessment/Plan Acute respiratory failure Pressure ulcer Generalized fatigue Lower lung opacity secondary to Gram-positive pneumonia Atrial fibrillation Anxiety Gross hematuria Continuing current management. Continuing with IV Rocephin. I will add Zithromax to his regimen. Continuing with seen atrial fibrillation medication Continuing and anxiety med. I will increase Ativan to 1 mg p.o. Q eight p.r.n. for anxiety. Continuing wound care Status post cystoscopy done. Now off Alvarez Hold Xarelto for now Hospice evaluation consult ABG to see if patient need oxygen at home. Discharge planning. This medical document was created using an electronic medical record system with [email or web address] computerized dictation system. Although this document has been carefully reviewed, there may still be some phonetic and typographical errors. These areas are purely typographical due to imperfections of the software programs, and do not reflect any compromise in the patient's medical care. Plan discussed with: Patient My Orders Orders - CONNIE COLON MD Procedure Category Date Status Time Abg W/ Co-Ox RT 11/19/24 Logged 13:53 Date of Service: Nov 20, 2024 Billing Provider: CONNIE COLON MD Common Visit Codes: [id number] INP/OBS CARE(HIGH) CONNIE COLON MD Nov 20, 2024 12:49
[2024-11-20] MEDS ORDERED: METOCLOPRAMIDE HCL 5MG/ml INJ 2ml VIAL IV ONE (13:02)
[2024-11-20] MEDS ORDERED: ONDANSETRON HCL 4 MG/2 ML VIAL IV ONE (13:03)
[2024-11-20] MEDS: IPRATROPIUM BROM 0.5 MG/2.5ML INH SOL NEB PRN (13:23)
[2024-11-20] MEDS: ALBUTEROL SULF 2.5 MG/0.5ML(0.5%) NEB SOLN NEB PRN (13:23)
[2024-11-21] VITALS (11 sets, daily range): BP systolic 101–131; BP diastolic 47–73; PULSE 74–92; RESP 16–28; TEMP 97.6–98.6; O2SAT 94–100
--- NOTE | 2024-11-21 11:27 | DVHPN2 ---
Subjective The patient is seen and examined at bedside. Alvarez removed. Patient is status post TURP. The patient frustrated because he not getting any better. The patient is still very shortness a breath and weak Reviewed: Care Plan, H&P, Labs, Medications, Previous Orders, Radiology Objective Vitals Vital Signs Date Time Temp Pulse Resp B/P (MAP) Pulse Ox O2 Delivery O2 Flow Rate FiO2 11/21/24 09:59 113/56 11/21/24 08:44 95 Nasal Cannula 2.0 11/21/24 08:44 28 11/21/24 08:44 81 22 11/21/24 05:00 98.0 98.0 Intake/Output Intake and Output 11/21/24 07:00 Intake Total 1040 ml Output Total 550 ml Balance 490 ml Intake Oral 740 ml IV Total 300 ml Output Urine Total 550 ml # Voids 4 # Bowel Movements 3 General Appearance: Alert, Cooperative, No acute distress HEENT: Atraumatic, PERRLA, EOMI, Mucous membr. moist/pink Neck: Supple Lungs: Clear to auscultation, Normal air movement Cardiovascular: Regular rate, Normal S1, Normal S2, No murmurs, Gallops, Rubs Abdomen: Normal bowel sounds, Soft, No tenderness Neuro: Strength at 5/5 X4 ext Psych/Mental Status: Mental status NL Medications Current Medications Medications Dose Ordered Sig/Louie Route Start Time Stop Time Status Last Admin Dose Admin Ceftriaxone Sodium 50 ml @ 100 mls/hr DAILY@09 IV 11/10/24 09:00 11/21/24 09:58 100 MLS/HR Azithromycin 250 ml @ 125 mls/hr DAILY IV 11/10/24 10:00 11/20/24 08:48 125 MLS/HR Sennosides 8.6 mg DAILYP PRN PO 11/09/24 11:30 11/19/24 11:27 8.6 MG Tamsulosin HCl 0.4 mg DAILY PO 11/10/24 10:00 11/21/24 09:58 0.4 MG Metoprolol Tartrate 25 mg DAILY PO 11/10/24 10:00 Hold Sodium Chloride 10 ml Q8HR IV 11/09/24 14:00 11/21/24 05:52 10 ML Docusate Sodium 100 mg BIDPRN PRN PO 11/09/24 11:30 11/18/24 00:08 100 MG Acetaminophen 650 mg Q6HP PRN PO 11/09/24 11:30 11/20/24 21:51 650 MG Ondansetron HCl 4 mg Q4HP PRN IV 11/09/24 11:30 Lorazepam 0.5 mg Q8HP PRN PO 11/10/24 10:30 11/21/24 10:18 0.5 MG Albuterol 2.5 mg Q4HPRN PRN NEB 11/12/24 02:45 11/21/24 08:44 2.5 MG Ipratropium [place] 0.5 mg Q4HPRN PRN NEB 11/12/24 02:45 11/21/24 08:44 0.5 MG Melatonin 10 mg HS PRN PO 11/12/24 22:00 11/18/24 01:25 10 MG Hydroxychloroquine Sulfate 200 mg DAILY PO 11/13/24 10:00 11/21/24 09:58 200 MG Furosemide 20 mg DAILY IV 11/16/24 16:15 11/21/24 09:59 20 MG Laboratory Results Laboratory Tests 11/14/24 09:45 11/19/24 05:28 Urinalysis Test 11/09/24 11:52 11/10/24 15:19 Urine Amorphous Crystals Few /hpf (None Seen) Urine Color Yellow (Yellow) Urine Clarity Clear (Clear) Urine pH 5.5 (5.0-9.0) Urine Specific [place] 1.022 (1.001-1.035) Urine Protein 1+ (Negative) H Urine Ketones Negative (Negative) Urine Blood Negative /uL (Negative) Urine Nitrite Negative (Negative) Urine Bilirubin Negative (Negative) Urine Urobilinogen Normal mg/dL (Negative) Urine Leukocyte Esterase Negative /uL (Negative) Urine RBC 2 /hpf (0 - 3) Urine Microscopic WBC 2 /HPF (0-3) Urine Squamous Epithelial Cells None seen /hpf (<5) Urine Bacteria None seen /hpf (None Seen) Urine Creatinine 58.40 mg/dL (30.0-125.0) Urine Protein/Creatinine Ratio 1.08 Urine Sodium 49 mmol/L (40-220) Urine Glucose Normal mg/dL (Normal) Urine Total Protein 63.2 mg/dL (1-14) H Microbiology Microbiology Date/Time Source Procedure Growth Status 11/12/24 00:13 Sputum Gram Stain - Final Resulted 11/12/24 00:13 Sputum Respiratory Culture - Preliminary Resulted 11/10/24 10:04 Nose MRSA Screen - Final Complete Assessment/Plan Assessment/Plan Acute respiratory failure Pressure ulcer Generalized fatigue Lower lung opacity secondary to Gram-positive pneumonia Atrial fibrillation Anxiety Gross hematuria Continuing current management. Continuing with IV Rocephin. I will add Zithromax to his regimen. Continuing with seen atrial fibrillation medication Continuing and anxiety med. I will increase Ativan to 1 mg p.o. Q eight p.r.n. for anxiety. Continuing wound care Status post cystoscopy done. Now off Alvarez Hold Xarelto for now Hospice evaluation consult ABG to see if patient need oxygen at home. Discharge planning. This medical document was created using an electronic medical record system with [employer] direct computerized dictation system. Although this document has been carefully reviewed, there may still be some phonetic and typographical errors. These areas are purely typographical due to imperfections of the software programs, and do not reflect any compromise in the patient's medical care. CONNIE COLON MD Nov 21, 2024 11:27
--- NOTE | 2024-11-21 23:04 | DVHDS2 ---
Discharge Summary Date of Admission Nov 09, 2024 at 11:23 Date of Discharge: Nov 21, 2024 Admitting Diagnosis Acute respiratory failure Pressure ulcer Generalized fatigue Lower lung opacity secondary to Gram-positive pneumonia Atrial fibrillation Anxiety Labs/Diagnostic Data: Laboratory Results Test 11/19/24 13:48 11/19/24 05:28 11/17/24 05:33 11/14/24 09:45 Blood Gas Specimen Type Arterial Blood Gas Sample Site Right radial Blood Gas Patient Temperature 37.0 Arterial Blood Date Drawn [id number] Arterial Blood pH 7.492 (7.350-7.450) Arterial Blood Partial Pressure CO2 46.7 mmHg (35.0-48.0) Arterial Blood Partial Pressure O2 61.0 mmHg (83.0-108.0) Arterial Blood HCO3 35.0 mmol/L (21.0-28.0) Arterial Blood Oxygen Saturation 88.3 % (94.0-98.0) Arterial Blood Base Excess 10.4 mmol/L (-2.0-3.0) Arterial Blood Oxyhemoglobin 87.6 % (94.0-98.0) Arterial Blood Carboxyhemoglobin 0.4 % (0.5-1.5) Arterial Blood Methemoglobin 0.4 % (0.0-1.5) Hugo Test Yes Blood Gas Total Hemoglobin 11.10 g/dL (13.5-17.5) Blood Gas Modality Room air FiO2 % 21.0 Sodium Level 137 mmol/L (136-145) Potassium Level 4.5 mmol/L (3.5-5.1) Chloride Level 96 mmol/L (98-107) Carbon Dioxide Level 37 mmol/L (20-31) Anion Gap 4 (5-15) Blood Urea Nitrogen 22 mg/dL (9-23) Creatinine 0.99 mg/dL (0.700-1.30) Glomerular Filtration Rate Calc 74 mL/min (>90) BUN/Creatinine Ratio 22.2 (10.0-20.0) Serum Glucose 71 mg/dL (74-106) Calcium Level 8.7 mg/dL (8.7-10.4) Prothrombin Time 12.2 sec (9.3-11.8) Prothrombin Time INR 1.17 (0.9-1.15) Activated Partial Thromboplast Time 34.7 SEC (24.5-34.5) White Blood Count 5.9 10^3/uL (4.4-10.8) Red Blood Count 3.35 10^6/uL (4.5-5.90) Hemoglobin 11.2 g/dL (13.5-17.5) Hematocrit 33.4 % (41.0-53.0) Mean Corpuscular Volume 99.7 fL (80.0-100.0) Mean Corpuscular Hemoglobin 33.4 pg (28.0-32.0) Mean Corpuscular Hemoglobin Concent 33.6 g/dL (32.0-36.0) Red Cell Distribution Width 14.6 % (11.8-14.3) Platelet Count 110 10^3/uL (140-450) Mean Platelet Volume 7.9 fL (6.9-10.8) Neutrophils (%) (Auto) 85.1 % (37.0-80.0) Lymphocytes (%) (Auto) 3.4 % (10.0-50.0) Monocytes (%) (Auto) 11.0 % (0.0-12.0) Eosinophils (%) (Auto) 0.0 % (0.0-7.0) Basophils (%) (Auto) 0.5 % (0.0-2.0) Neutrophils # (Auto) 5.1 10 ^3/uL (1.6-8.6) Lymphocytes # (Auto) 0.2 10 ^3/uL (0.4-5.4) Monocytes # (Auto) 0.7 10 ^3/uL (0-1.3) Eosinophils # (Auto) 0 10 ^3/uL (0-0.8) Basophils # (Auto) 0 10 ^3/uL (0-0.2) Nucleated Red Blood Cells 0.0 % Magnesium Level 2.3 mg/dL (1.6-2.6) Total Bilirubin 0.7 mg/dL (0.2-1.0) Aspartate Amino Transferase (AST) 33 U/L (13-40) Alanine Aminotransferase (ALT) 28 U/L (7-40) Alkaline Phosphatase 241 U/L (46-116) Total Protein 5.5 g/dL (5.7-8.2) Albumin 3.1 g/dL (3.2-4.8) Test 11/10/24 15:19 11/10/24 12:54 11/10/24 06:34 11/09/24 11:52 Urine Color Yellow (Yellow) Urine Clarity Clear (Clear) Urine pH 5.5 (5.0-9.0) Urine Specific [place] 1.022 (1.001-1.035) Urine Protein 1+ (Negative) Urine Ketones Negative (Negative) Urine Blood Negative /uL (Negative) Urine Nitrite Negative (Negative) Urine Bilirubin Negative (Negative) Urine Urobilinogen Normal mg/dL (Negative) Urine Leukocyte Esterase Negative /uL (Negative) Urine RBC 2 /hpf (0 - 3) Urine Microscopic WBC 2 /HPF (0-3) Urine Squamous Epithelial Cells None seen /hpf (<5) Urine Bacteria None seen /hpf (None Seen) Urine Creatinine 58.40 mg/dL (30.0-125.0) Urine Protein/Creatinine Ratio 1.08 Urine Sodium 49 mmol/L (40-220) Urine Glucose Normal mg/dL (Normal) Urine Total Protein 63.2 mg/dL (1-14) Phosphorus Level 3.5 mg/dL (2.4-5.1) Vitamin D 25-Hydroxy 76.3 ng/mL (30.0-100) Parathyroid Hormone (Intact) 86.6 pg/mL (18.4-80.1) Urine Amorphous Crystals Few /hpf (None Seen) Test 11/09/24 07:04 11/09/24 06:44 POC Glucose 102 mg/dl (70-106) Troponin I High Sensitivity 29 ng/L (</=54) C-Reactive Protein High Sensitivity 2.26 mg/dL (<1.0) B-Type Natriuretic Peptide 285.73 pg/mL (0-100) Other Laboratory Tests 11/19/24 05:28 11/14/24 09:45 Brief Hx & Hospital Course: This 84 years old male with past medical history of atrial fibrillation, osteoarthritis, congestive heart failure, COPD, pulmonary embolism, hernia repair came to emergency department because of weakness for three days. The patient reports being dizzy when he ambulate. The patient live alone and worry because nobody take care of him at home so he decided to come to the hospital for further evaluation. The patient was found to have acute hypoxic respiratory failure with saturation oxygen in the 80s. The patient was found to have bilateral pneumonia and congestive heart failure exacerbation. On top of it the patient also had acute kidney injury. The patient was admitted. The patient was given Lasix. The patient was given IV antibiotic. The patient was found to have gross hematuria. Urology was consulted. Anticoagulation was stopped. The patient subsequently had TURP done. The hematuria stopped. Anticoagulation was restarted. The patient was given medication for anxiety. The patient remained very weak and frail. The patient is still very hypoxic. The patient will be transferred to [facility] for further management of his deconditioning and multiple medical problem including pneumonia. Follow up with primary care physician 1-2 weeks after release from [facility]. Activity as tolerated. Diet per home diet. Physical exam: HEENT: Normocephalic atraumatic pupils equal react to light and accommodation. Extraocular muscles intact, conjunctiva pink, oropharynx moist, no thrush, no exudate. Lymphatic: No lymphadenopathy Cardiovascular exam: S1, S2 was heard. No murmurs, rubs, gallops Lung: Clear on auscultation bilaterally, no wheeze, rale, rhonchi. GI: Abdominal soft, nondistended, nontenderness, positive bowel sounds. Extremity: No crepitus, cyanosis, edema. Pedal pulses present bilateral. Full range of motion. Skin: Normal turgor, no rash. Psych: Alert, oriented x3. Neurology: No focal deficits, cranial nerve II to XII grossly intact. This medical document was created using an electronic medical record system with [employer] direct computerized dictation system. Although this document has been carefully reviewed, there may still be some phonetic and typographical errors. These areas are purely typographical due to imperfections of the software programs, and do not reflect any compromise in the patient's medical care. Condition at Discharge: Stable Final Diagnosis/Problems List Acute respiratory failure Pressure ulcer Generalized fatigue Lower lung opacity secondary to Gram-positive pneumonia Atrial fibrillation Anxiety Gross hematuria with benign prostate hyperplasia status post TURP Discharge Disposition: Acute Care Facility Discharge Instruct/Medications Diet: Cardiac 2g Na,low cholest Activity: No Restrictions, As Tolerated Follow Up/Referral: pcp1-2 weeks Medications: see med list Scheduled Doxycycline Monohydrate (Doxycycline Monohydrate), 1 CAP PO BID Empagliflozin (Jardiance), 10 MG PO DAILY Furosemide (Lasix), 40 MG PO DAILY Hydroxychloroquine Sulfate (Hydroxychloroquine Sulfat), 200 MG PO DAILY Metoprolol Succinate (Metoprolol Succinate Er), 1 TAB PO DAILY Prednisone (Prednisone), 40 MG PO DAILY Rivaroxaban (Xarelto), 1 TAB PO QPM Spironolactone (Aldactone), 1 TAB PO DAILY Tamsulosin Hcl (Flomax), 0.4 MG PO DAILY, (Reported) Zolpidem Tartrate (Ambien), 1 TAB PO QPM, (Reported) Scheduled PRN Albuterol Sulfate (Ventolin Mdi), 90 MCG IN QID PRN Epinephrine (Anaphylaxis) (Auvi-Q), 0.1 MG IJ O PRN Hydrocodone-Acetaminophen (Hydrocodone Bitartrate/AC 5-325 mg), 1 TAB PO Q6HPRN PRN Senna (Senna), 8.6 MG PO DAILYP PRN Discharge Statement: "Patient was advised to return to the ER or call 911 if any headaches, dizziness, shortness of breath, chest pain, abdominal pain, bleeding, fevers, or worsening of medical condition. Patient was counseled about treatment plan, medications, possible side effects, patientverbalized understanding. All questions were answered to the best of my ability. This discharge took greater then 30 minutes in planning, reviewing documentation, counseling the patient, and discussing with other team members." ASSESSMENT ASSESSMENT Assessment PNA Deconditioning Date of Service: Nov 21, 2024 Billing Provider: CONNIE COLON MD Common Visit Codes: 51504-XYO/OBS DISCH DAY >30min CONNIE COLON MD Nov 21, 2024 23:04
== END 2024-11-21 18:15 | disposition short-term general hospital (02) | DRG 713 ==
LOC: EDBD 06:29 → ER 06:29 → OVERFLOW 11:23 → TELE-WESTW 15:15
PROVIDERS: ADMIT Internal Medicine; ATTEND Internal Medicine
PROC: 0VT08ZZ Resection of Prostate, Via Natural or Artificial Opening Endoscopic (ICD-10-PCS; principal; 2024-11-17 12:40)
DX: N40.1 Benign prostatic hyperplasia with lower urinary tract symptoms (principal); J15.69 Pneumonia due to other Gram-negative bacteria; J96.21 Acute and chronic respiratory failure with hypoxia; J15.9 Unspecified bacterial pneumonia; N17.9 Acute kidney failure, unspecified; J44.0 Chronic obstructive pulmonary disease with (acute) lower respiratory infection; I13.0 Hypertensive heart and chronic kidney disease with heart failure and stage 1 through stage 4 chronic kidney disease, or unspecified chronic kidney disease; L89.159 Pressure ulcer of sacral region, unspecified stage; D63.1 Anemia in chronic kidney disease; F41.9 Anxiety disorder, unspecified; I48.91 Unspecified atrial fibrillation; R31.0 Gross hematuria; I50.9 Heart failure, unspecified; N18.31 Chronic kidney disease, stage 3a; J98.4 Other disorders of lung; R54 Age-related physical debility; R33.8 Other retention of urine; Z88.2 Allergy status to sulfonamides; Z88.8 Allergy status to other drugs, medicaments and biological substances; Z79.84 Long term (current) use of oral hypoglycemic drugs; Z79.899 Other long term (current) drug therapy; Z82.49 Family history of ischemic heart disease and other diseases of the circulatory system; Z83.79 Family history of other diseases of the digestive system; Z86.711 Personal history of pulmonary embolism
CPT/HCPCS: 36415; 36600; 71045; 74176; 76775; 80048; 80053; 81001; 82306; 82570; 82805; 82962; 83735; 83880; 83970; 84100; 84156; 84300; 84484; 85025; 85610; 85730; 86141; 86850; 86900; 86901; 87070; 87081; 87205; 93005; 94640; 96365; 97110; 97116; 97163; 97530; A4344; G0378; J2250; J2405; J3490

== ENCOUNTER 2024-12-09 11:26 | Inpatient (IN) | payer OTHER, MEDICARE ==
[~2024-12-09] VITALS: Ht 180.3 cm; Wt 44.9 kg
[2024-12-09 12:05] VITALS: PULSE 90; RESP 18; O2SAT 98
--- NOTE | 2024-12-09 12:27 | DVH ---
XY CHEST PORTABLE, HISTORY: Rule out pneumonia COMPARISON: XY CHEST PORTABLE on DOS: 11/09/24, XY CHEST PORTABLE on DOS: 10/26/24, XY CHEST PORTABLE on DOS: 10/11/24 XY CHEST PORTABLE on DOS: 11/09/24, XY CHEST PORTABLE on DOS: 10/26/24, XY CHEST PORTABLE on DOS: 5 TECHNICAL DATA: 1 view of the chest was obtained. FINDINGS: Lines and tubes: None Cardiomediastinal silhouette: normal Pulmonary vasculature: normal Lung expansion: Increased Lung airspace: Multifocal patchy opacities and left basilar consolidation. Lung interstitium: Prominent Pleura: Small left effusion. Pneumothorax: no Bones: Unremarkable Other: no IMPRESSION: Multifocal patchy opacities and left basilar consolidation. Interstitial reticulation can be seen wit h interstitial lung disease. Small left effusion.
[2024-12-09] MEDS: SODIUM CHLORIDE 0.9% 500 ML IV ONE (12:36)
[2024-12-09 12:40] LABS: Hematocrit 38.6 % (41.0-53.0); Hemoglobin 12.6 g/dL (13.5-17.5); Mean Corpuscular Hemoglobin 32.0 pg (28.0-32.0); Mean Corpuscular Volume 98.2 fL (80.0-100.0); Nucleated Red Blood Cells % 0.0 %
--- NOTE | 2024-12-09 12:47 | ED.PDOC ---
HPI (NEURO) HPI Comments 84-year-old male presents here from SNF for shortness of breath. At the SNF he is normally supposed to be on 3 L nasal cannula but has not been keeping his nasal cannula on. He was found to be satting in the 80s. And 911 was called. As he complained of shortness of breath. At this time patient states he has been chronically short of breath. And generally not feeling well. He states this is chronic. Denies any fever or chills. No nausea no vomiting no diarrhea. Chief Complaint: General Weakness Time Seen by MD: 11:37 Primary Care Provider: ADAM Reviewed Notes: Nurses Notes, Medications, Allergies Information Source: Patient Mode of Arrival: EMS Severity: Moderate Timing: Hours Duration: Since onset Prehospital treatment: None Past Medical History PAST MEDICAL HISTORY: AFIB, Arthritis, CHF, COPD, PE Surgical History: Hernia Repair, Tonsillectomy Family History Family History: Reviewed,noncontributory to illness, Unknown Social History Smoker: Non-Smoker Alcohol: Denies ETOH Use Drugs: Denies Drug Use Lives In: Home Constitutional: reports: weakness; denies: chills, diaphoresis, fatigue, fever, malaise, sweats, others EENTM: denies: blurred vision, double vision, ear bleeding, ear discharge, ear drainage, ear pain, ear ringing, eye pain, eye redness, hearing loss, mouth pain, mouth swelling, nasal discharge, nose bleeding, nose congestion, nose pain, photophobia, tearing, throat pain, throat swelling, voice changes, others Respiratory: denies: cough, hemoptysis, orthopnea, SOB at rest, shortness of breath, SOB with excertion, stridor, wheezing, others Cardiovascular: denies: chest pain, dizzy spells, diaphoresis, Dyspnea on exertion, edema, irregular heart beat, left arm pain, lightheadedness, palpitations, PND, syncope, others Gastrointestinal: denies: abdomen distended, abdominal pain, blood streaked bowels, constipated, diarrhea, dysphagia, difficulty swallowing, hematemesis, melena, nausea, poor appetite, poor fluid intake, rectal bleeding, rectal pain, vomiting, others Genitourinary: denies: burning, dysuria, flank pain, frequency, hematuria, incontinence, penile discharge, penile sore, pain, testicle pain, testicle swelling, urgency, others Neurological: reports: weakness; denies: dizziness, fainting, headache, left sided numbness, left sided weakness, numbness, paresthesia, pre-existing deficit, right sided numbness, right sided weakness, seizure, speech problems, tingling, tremors, others Musculoskeletal: denies: back pain, gout, joint pain, joint swelling, muscle pain, muscle stiffness, neck pain, others Integumetry: denies: bruises, change in color, change in hair/nails, dryness, laceration, lesions, lumps, rash, wounds, others Allergic/Immunocompromised: denies: Difficulty Healing, Frequent Infections, Hives, Itching, others Hematologic/Lymphatic: denies: anemia, blood clots, easy bleeding, easy bruising, swollen glands, others Endocrine: denies: excessive hunger, excessive sweating, excessive thirst, excessive urination, flushing, intolerance to cold, intolerance to heat, unexplained weight gain, unexplained weight loss, others Psychiatric: denies: anxiety, bipolar disorder, depression, hopeless, panic disorder, schizophrenia, sleepless, suicidal, others All Other Systems: Reviewed and Negative Physical Exam Exam Comments Saturating 96% on room air General Appearance: Cachectic, No Apparent Distress, Normal HEENT: Normal ENT Inspection, Pharynx Normal, TMs Normal, Other (Left eye with mild erythema to the eyelids. Clear drainage) Neck: Full Range of Motion, Non-Tender, Normal, Normal Inspection Respiratory: Chest Non-Tender, No Accessory Muscle Use, No Respiratory Distress, Normal Breath Sounds, Rhonchi Cardiovascular: No Edema, No JVD, No Murmur, No Gallop, Other (Irregularly irregular rhythm anywhere from 96-112 on heart monitor at bedside. Consistent with atrial fibrillation.) Breast Exam: Deferred Gastrointestinal: No Organomegaly, Non Tender, No Pulsatile Mass, Normal Bowel Sounds, Soft Genitalia: Deferred Pelvic: Deferred Rectal: Deferred Extremities: No calf tenderness, Normal capillary refill, Normal inspection, Normal range of motion, Non-tender, No pedal edema Musculoskeletal : Apperance: Normal Neurologic: Alert, No Motor Deficits, Normal Affect, Normal Mood, No Sensory Deficits Cerebellar Function: Normal Reflexes: Normal Skin: Dry, Normal Color, Warm Lymphatic: No Adenopathy Was a procedure done? Was a procedure done?: No Differential Diagnosis (SZ) Seizure: Other CVA: Other General Weakness: Anemia, CVA, Dehydration, Dysrhythmia, Electrolyte imbalance, Encephalopathy, Hypovolemia, TIA, Other (Pneumonia, UTI, COPD exacerbation, eye infection) Headache: Other X-Ray, Labs, Meds, VS Vital Signs Date Time Temp Pulse Resp B/P (MAP) Pulse Ox O2 Delivery O2 Flow Rate FiO2 12/09/24 12:17 98 Nasal Cannula* 3 32 12/09/24 12:05 90 18 98 Nasal Cannula* 3 32 12/09/24 12:04 97.7 90 16 91/45 (60) 98 97.7 12/09/24 11:30 98.7 97 30 97/47 99 98.7 Lab Test 12/09/24 12:55 12/09/24 12:06 Range/Units Troponin I High Sensitivity Pending Pending White Blood Count 13.3 H 4.4-10.8 10^3/uL Red Blood Count 3.93 L 4.5-5.90 10^6/uL Hemoglobin 12.6 L 13.5-17.5 g/dL Hematocrit 38.6 L 41.0-53.0 % Mean Corpuscular Volume 98.2 80.0-100.0 fL Mean Corpuscular Hemoglobin 32.0 28.0-32.0 pg Mean Corpuscular Hemoglobin Concent 32.6 32.0-36.0 g/dL Red Cell Distribution Width 15.9 H 11.8-14.3 % Platelet Count 252 140-450 10^3/uL Mean Platelet Volume 7.2 6.9-10.8 fL Neutrophils (%) (Auto) 88.5 H 37.0-80.0 % Lymphocytes (%) (Auto) 4.5 L 10.0-50.0 % Monocytes (%) (Auto) 6.6 0.0-12.0 % Eosinophils (%) (Auto) 0.0 0.0-7.0 % Basophils (%) (Auto) 0.4 0.0-2.0 % Neutrophils # (Auto) 11.7 H 1.6-8.6 10 ^3/uL Lymphocytes # (Auto) 0.6 0.4-5.4 10 ^3/uL Monocytes # (Auto) 0.9 0-1.3 10 ^3/uL Eosinophils # (Auto) 0 0-0.8 10 ^3/uL Basophils # (Auto) 0.1 0-0.2 10 ^3/uL Nucleated Red Blood Cells 0.0 % Sodium Level 138 136-145 mmol/L Potassium Level 4.7 3.5-5.1 mmol/L Chloride Level 105 98-107 mmol/L Carbon Dioxide Level 25 20-31 mmol/L Anion Gap 8 5-15 Blood Urea Nitrogen 29 H 9-23 mg/dL Creatinine 1.49 H 0.700-1.30 mg/dL Glomerular Filtration Rate Calc 45 >90 mL/min BUN/Creatinine Ratio 19.5 10.0-20.0 Serum Glucose 78 74-106 mg/dL Calcium Level 8.5 L 8.7-10.4 mg/dL Total Bilirubin 0.6 0.2-1.0 mg/dL Aspartate Amino Transferase (AST) 32 13-40 U/L Alanine Aminotransferase (ALT) 32 7-40 U/L Alkaline Phosphatase 333 H 46-116 U/L Total Protein 7.1 5.7-8.2 g/dL Albumin 3.3 3.2-4.8 g/dL Current Medications Medications (Trade) Dose Ordered Sig/Louie Route Start Time Stop Time Status Last Admin Sodium Chloride 500 ml @ 500 mls/hr Q1H ONCE IV 12/09/24 12:00 12/09/24 12:59 DC 12/09/24 12:36 [place] [id number] Ph: [phone] DIAGNOSTIC IMAGING Diagnostic Imaging Report : [id number] Signed PATIENT: CORONA ZEPEDA ACCT: [id number] UNIT: [id number] : 1940 LOC: ER ROOM / BED: / AGE / SEX: 84 / M ADM STATUS: REG ER SERVICE [id number] ORDERING PHYSICIAN: NIHARIKA JOHN MD PROCEDURE(s): CXRP - CHEST PORTABLE REASON: Rule out pneumonia ORDER NUMBER(s): [id number], ACCESSION NUMBER(s): [id number] XY CHEST PORTABLE, HISTORY: Rule out pneumonia COMPARISON: XY CHEST PORTABLE on DOS: 11/09/24, XY CHEST PORTABLE on DOS: 10/26/24, XY CHEST PORTABLE on DOS: 10/11/24 XY CHEST PORTABLE on DOS: 11/09/24, XY CHEST PORTABLE on DOS: 10/26/24, XY CHEST PORTABLE on DOS: 10/11/24 TECHNICAL DATA: 1 view of the chest was obtained. FINDINGS: Lines and tubes: None Cardiomediastinal silhouette: normal Pulmonary vasculature: normal Lung expansion: Increased Lung airspace: Multifocal patchy opacities and left basilar consolidation. Lung interstitium: Prominent Pleura: Small left effusion. Pneumothorax: no Bones: Unremarkable Other: no IMPRESSION: Multifocal patchy opacities and left basilar consolidation. Interstitial reticulation can be seen with interstitial lung disease. Small left effusion. ATED BY: ANIBAL STONE MD DICTATED DATE/TIME: 12/09/241224 SIGNED BY: ANIBAL STONE MD SIGNED DATE/TIME: 12/09/241224 CC: 84-year-old male presents here with shortness of breath at the facility he is at. He is supposed to be wearing 3 nasal cannula but was not wearing it consistently. At this time patient is saturating well on 3 L nasal cannula in the ER. He reports generalized weakness that is chronic. Chest x-ray does demonstrate patchy infiltration consolidation on the left. Concern for acute pneumonia. Blood work has been done which does demonstrate mild leukocytosis of 13.3. I have started him on Rocephin and azithromycin IV. Additionally he reports some eye pain to his left eye. There was minimal erythema and clear drainage. Suspect likely viral conjunctivitis. At this time patient is agreeable to admission. Patient does not want to go back to the SNF he was just stat. CBC with a leukocytosis of 13.3. BMP with elevated alk phos of unclear etiology and also acute kidney injury. At this time hospitalist team has been contacted for admission. Troponin EKG Time of 1ST Reevaluation: 13:10 Reevaluation 1ST: Unchanged Patient Education/Counseling: Diagnosis, Treatment Family Education/Counseling: No Family Present Departure 1 Departure Time of Disposition: 13:10 Impression: Primary Impression: Pneumonia, unspecified organism Qualified Codes: J18.9 - Pneumonia, unspecified organism Additional Impressions: Conjunctivitis Qualified Codes: B30.9 - Viral conjunctivitis, unspecified Acute kidney injury Disposition: ADMITTED INPATIENT Condition: Fair Critical Care Note Critical Care Time?: No Stability Stability form required: No Heart Score Heart Score: Heart Score Response (Comments) Value History N/A 0 EKG N/A 0 Age N/A 0 Risk Factors N/A 0 Troponin N/A 0 Total 0 I personally scribed for NIHARIKA JOHN MD ([email or web address]) on 12/09/24 at 12:47. Electronically submitted by Mai Askew ([email or web address]). NIHARIKA JOHN MD Dec 09, 2024 12:47
[2024-12-09 12:58] LABS: Alanine Aminotransferase 32 U/L (7-40); Albumin 3.3 g/dL (3.2-4.8); Anion Gap 8 (5-15); BUN/Creatinine Ratio 19.5 (10.0-20.0); Carbon Dioxide 25 mmol/L (20-31); Chloride 105 mmol/L (98-107); Glucose 78 mg/dL (74-106); Potassium 4.7 mmol/L (3.5-5.1); Sodium 138 mmol/L (136-145); Total Protein 7.1 g/dL (5.7-8.2)
[2024-12-09 12:59] LABS: Bilirubin, Total 0.6 mg/dL (0.2-1.0)
[2024-12-09 13:00] LABS: Alkaline Phosphatase 333 U/L (46-116); Blood Urea Nitrogen 29 mg/dL (9-23); Calcium 8.5 mg/dL (8.7-10.4)
[2024-12-09] MEDS: AZITHROMYCIN 500MG/ 250ML 250 ML IV ONE (13:12)
[2024-12-09] MEDS: cefTRIAXone SOD 1,000 MG VL IM ONE (13:22)
[2024-12-09] MEDS: ERYTHROMY OPTH OINT 5mg/gm 1gm or 3.5gm tube OP ONE (13:37)
[2024-12-09 13:47] LABS: Urine Protein, UAD 1+ (Negative)
--- NOTE | 2024-12-09 14:22 | ECG ---
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
--- NOTE | 2024-12-09 16:59 | ECG ---
[facility] Test Date: 2024-12-09 Test Time: 16:24:19 Pat Name: CORONA ZEPEDA Department: Room: 0235 Gender: M Cistern Room Operator: HAMMAD : 1940 Requested By: NIHARIKA JOHN Order Number: [id number] Reading MD: Corona Thomas Measurements Intervals [place] Rate: 73 P: 229 OR: 166 QRS: -38 QRSD: 104 T: 165 QT: 374 QTc: 413 Interpretive Statements Sinus or ectopic atrial rhythm LVH with secondary repolarization abnormality Electronically Signed On 12-11-2024 18:52:08 PDT by Corona Thomas Please click the below link to view image of tracing.
[2024-12-09] MEDS: HYDROcodone-ACET 5/325MG TAB PO ONE (17:21)
--- NOTE | 2024-12-09 18:50 | ECG ---
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
--- NOTE | 2024-12-09 21:14 | DVHHP2 ---
History of Present Illness Reason for Visit: Pneumonia, unspecified organism History of Present Illness The patient is a 84-year-old male with past medical history of AFib, arthritis, CHF, COPD, and PE who presented to [facility] ED with complaint of shortness of breaths. Patient resides SNF currently on 3 L nasal cannula but has not been keeping his nasal cannula on. Patient was found to be desaturating in the 80s, so EMS were called. Patient was seen and evaluated in the ED, laboratory data shows WBC 13.3, platelets 252, sodium 138, potassium 4.7, BUN 29, creatinine 1.49, platelets 78, calcium 8.5, troponin 30, alkaline phos 333, blood pressure 112/45, pulse 82, temperature 97.7 F, O2 saturation 99% on oxygen. Chest x-ray revealing multifocal patchy opacities and left bibasilar consolidations; interstitial reticulation can be seen with interstitial lung disease, small left effusion. Urinalysis positive for urinary tract infection. Please see medication orders section in the computer. On my assessment, patient denied chest pain, no headache, no dizziness, no diaphoresis, currently on oxygen, no diarrhea, no nausea, no vomiting, no fever, no chills. Patient was admitted for further evaluation and medical management. Past Medical History AFIB, Arthritis, CHF, COPD, PE Past Surgical History Hernia Repair, Tonsillectomy Family History Reviewed, noncontributory to the management of this case. Past Social History The patient lives at home, denies smoking, alcohol or illicit drugs abuse. Review of Systems Constitutional: Yes: Weakness; No: Fever, Chills, Sweats, Malaise, Other Eyes: No: Pain, Vision change, Conjunctivae inflammation, Eyelid inflammation, Other, Redness ENT: No: Ear pain, Ear discharge, Nose pain, Nose discharge, Nose congestion, Mouth pain, Mouth swelling, Throat pain, Throat swelling, Other Respiratory: No: Cough, Dry, Shortness of breath, SOB with excertion, Wheezing, Hemoptysis, Pleuritic Pain, Sputum, Wheezing, Other Cardiovascular: No: Chest Pain, Palpitations, Orthopnea, Paroxysmal Noc. Dyspnea, Edema, Lt Headedness, Other Gastrointestinal: No: Nausea, Vomiting, Abdominal Pain, Diarrhea, Constipation, Melena, Hematochezia, Other Genitourinary: No Dysuria, No Frequency, No Incontinence, No Hematuria, No Retention, No Other Musculoskeletal: No: other, neck pain, shoulder pain, arm pain, back pain, hand pain, leg pain, foot pain Neurological: Weakness; No: Numbness, Incoordination, Change in speech, Confusion, Seizures, Other Allergies: Coded Allergies: Empagliflozin (Verified Allergy, Severe, 11/10/24) stops breathing Sulfa Antibiotics (Verified Allergy, Severe, 05/08/24) Sulfabenzamide (Verified Allergy, Intermediate, 05/08/24) Sulfacetamide (Verified Allergy, Intermediate, 05/08/24) Sulfathiazole (Verified Allergy, Intermediate, 05/08/24) Sacubitril (Unverified Allergy, Unknown, SOB Weakness , 08/21/24) Per pt report Valsartan (Unverified Allergy, Unknown, SOB Weakness , 08/21/24) Per pt report Metoprolol (Verified Adverse Reaction, Severe, 07/12/24) "don't feel very good" per patient Sitagliptin (Verified Adverse Reaction, Severe, 07/12/24) Pt states it made him "feel not very good" Exam Vital Signs Vital Signs Date Time Temp Pulse Resp B/P (MAP) Pulse Ox O2 Delivery O2 Flow Rate FiO2 12/09/24 19:55 97.7 82 15 111/44 (66) 99 97.7 12/09/24 19:55 Nasal Cannula* 3 32 General Appearance: Alert, Oriented X3, Cooperative, No acute distress HEENT: Atraumatic, PERRLA, EOMI, Mucous membr. moist/pink Respiratory: Normal air movement, Other (Diminished breath sounds) Cardiovascular: Regular rate, Normal S1, Normal S2, No murmurs Abdominal: Normal bowel sounds, Soft, No tenderness, No hepatospenomegaly, No masses Extremities: No clubbing, No cyanosis, No edema, Normal pulses, No tenderness/swelling Skin: No rashes, No significant lesion Neuro: Normal speech, Normal tone, Sensation intact, Cranial nerves 3-12 NL, Reflexes 2+, Other (Generalized weakness) Psych/Mental Status: Mental status NL, Mood NL Labs/Xrays Labs Test 12/09/24 16:47 12/09/24 15:11 12/09/24 13:00 12/09/24 12:06 Range/Units POC Glucose 77 70-106 mg/dl Troponin I High Sensitivity 30 </=54 ng/L Urine Color Yellow Yellow Urine Clarity Turbid H Clear Urine pH 5.0 5.0-9.0 Urine Specific [place] 1.021 1.001-1.035 Urine Protein 1+ H Negative Urine Ketones Negative Negative Urine Blood 3+ H Negative /uL Urine Nitrite Negative Negative Urine Bilirubin Negative Negative Urine Urobilinogen Normal Negative mg/dL Urine Leukocyte Esterase 1+ Negative /uL Urine RBC 1282 0 - 3 /hpf Urine Microscopic WBC 216 H 0-3 /HPF Urine Squamous Epithelial Cells Few <5 /hpf Urine Bacteria None seen None Seen /hpf Urine Mucus Few None Seen Urine Glucose 4+ H Normal mg/dL White Blood Count 13.3 H 4.4-10.8 10^3/uL Red Blood Count 3.93 L 4.5-5.90 10^6/uL Hemoglobin 12.6 L 13.5-17.5 g/dL Hematocrit 38.6 L 41.0-53.0 % Mean Corpuscular Volume 98.2 80.0-100.0 fL Mean Corpuscular Hemoglobin 32.0 28.0-32.0 pg Mean Corpuscular Hemoglobin Concent 32.6 32.0-36.0 g/dL Red Cell Distribution Width 15.9 H 11.8-14.3 % Platelet Count 252 140-450 10^3/uL Mean Platelet Volume 7.2 6.9-10.8 fL Neutrophils (%) (Auto) 88.5 H 37.0-80.0 % Lymphocytes (%) (Auto) 4.5 L 10.0-50.0 % Monocytes (%) (Auto) 6.6 0.0-12.0 % Eosinophils (%) (Auto) 0.0 0.0-7.0 % Basophils (%) (Auto) 0.4 0.0-2.0 % Neutrophils # (Auto) 11.7 H 1.6-8.6 10 ^3/uL Lymphocytes # (Auto) 0.6 0.4-5.4 10 ^3/uL Monocytes # (Auto) 0.9 0-1.3 10 ^3/uL Eosinophils # (Auto) 0 0-0.8 10 ^3/uL Basophils # (Auto) 0.1 0-0.2 10 ^3/uL Nucleated Red Blood Cells 0.0 % Sodium Level 138 136-145 mmol/L Potassium Level 4.7 3.5-5.1 mmol/L Chloride Level 105 98-107 mmol/L Carbon Dioxide Level 25 20-31 mmol/L Anion Gap 8 5-15 Blood Urea Nitrogen 29 H 9-23 mg/dL Creatinine 1.49 H 0.700-1.30 mg/dL Glomerular Filtration Rate Calc 45 >90 mL/min BUN/Creatinine Ratio 19.5 10.0-20.0 Serum Glucose 78 74-106 mg/dL Calcium Level 8.5 L 8.7-10.4 mg/dL Total Bilirubin 0.6 0.2-1.0 mg/dL Aspartate Amino Transferase (AST) 32 13-40 U/L Alanine Aminotransferase (ALT) 32 7-40 U/L Alkaline Phosphatase 333 H 46-116 U/L Total Protein 7.1 5.7-8.2 g/dL Albumin 3.3 3.2-4.8 g/dL PATIENT: CORONA ZEPEDA ACCT: [id number] UNIT: [id number] : 1940 LOC: ER ROOM / BED: / AGE / SEX: 84 / M ADM STATUS: REG ER SERVICE 1149 ORDERING PHYSICIAN: NIHARIKA JOHN MD PROCEDURE(s): CXRP - CHEST PORTABLE REASON: Rule out pneumonia ORDER NUMBER(s): [id number], ACCESSION NUMBER(s): [id number] XY CHEST PORTABLE, HISTORY: Rule out pneumonia COMPARISON: XY CHEST PORTABLE on DOS: 11/09/24, XY CHEST PORTABLE on DOS: 10/26/24, XY CHEST PORTABLE on DOS: 10/11/24 XY CHEST PORTABLE on DOS: 11/09/24, XY CHEST PORTABLE on DOS: 10/26/24, XY CHEST PORTABLE on DOS: 10/11/24 TECHNICAL DATA: 1 view of the chest was obtained. FINDINGS: Lines and tubes: None Cardiomediastinal silhouette: normal Pulmonary vasculature: normal Lung expansion: Increased Lung airspace: Multifocal patchy opacities and left basilar consolidation. Lung interstitium: Prominent Pleura: Small left effusion. Pneumothorax: no Bones: Unremarkable Other: no IMPRESSION: Multifocal patchy opacities and left basilar consolidation. Interstitial reticulation can be seen with interstitial lung disease. Small left effusion. SEPSIS Sepsis Screen Date sepsis recognized/suspect: Dec 09, 2024 Time Sepsis recognized/suspect: 1954 Recent Procedure: No On Antibiotic Therapy: No Respiratory Rate >20: No Heart Rate >90: Yes Temp<36 C (96.8 F) or >38.3 C: No SBP <90 or MAP <65 mmHG: No New Acute Mental Status Change: No Is the patient on CPAP, BIPAP,: No Physician Orders Azithromycin 500mg/ 250ml (Zithromax 50 (12/10/24 10:00) Ceftriaxone Ivpb Rocephin (12/10/24 09:00) Erythromy Opth Oint 5mg/Gm 1gm (12/09/24 22:00) Albuterol Medneb (Ventolin Medneb) (12/09/24 21:15) Tamsulosin Hydrochloride (Flomax) (12/10/24 18:00) (Nf) Xarelto (12/10/24 10:00) Admit (12/09/24 21:04) Allergies (12/09/24 21:04) Code Status (12/09/24 21:04) Sodium Chloride Lock (Saline Lock Ns) (12/09/24 22:00) Oxygen Per Hour (12/09/24 21:04) Hydrocodone-Acet 5/325mg Tab ([place] 5/32 (12/09/24 21:15) Ondansetron Hcl (Zofran) (12/09/24 21:15) Docusate Sodium Capsule (Colace Capsule) (12/09/24 21:15) Fall Risk Precautions In Place QSHIFT (12/09/24 21:04) Complete Blood Count (12/10/24 04:00) Comprehensive Metabolic Panel (12/10/24 04:00) Cardiac Diet-2gna,Lofat,Lochol (12/10/24 Breakfast) Condition: Serious (12/09/24 21:04) Acetaminophen Tablet (Tylenol Tablet) (12/09/24 21:15) Maintain Bed Rest (12/09/24 21:04) Sequential Compression Device (12/09/24 ) Nitroglycerin Sublingual (Ntrostat Subli (12/09/24 21:15) Morphine Sulfate Injection (12/09/24 21:15) Stat Ekg For Chest Pain (12/09/24 21:04) Notify Of Changes From Base (12/09/24 21:04) Bobbin Fixer For 24 Hours (12/09/24 21:04) Emergency Dysrhythmia Protocol (12/09/24 21:04) Rhythm Strips Once Every Shift (12/09/24 21:04) Oxygen By Nasal Cannula (12/09/24 21:04) Vital Signs Date Time Temp Pulse Resp B/P (MAP) Pulse Ox O2 Delivery O2 Flow Rate FiO2 12/09/24 19:55 97.7 82 15 111/44 (66) 99 97.7 12/09/24 19:55 Nasal Cannula* 3 32 12/09/24 18:00 74 16 138/81 (100) 98 12/09/24 16:24 73 12/09/24 16:00 73 16 102/47 (65) 98 12/09/24 14:20 73 12/09/24 14:00 83 16 107/43 (64) 98 Laboratory Tests Test 12/09/24 12:06 White Blood Count 13.3 10^3/uL (4.4-10.8) H Medications Medications Dose Ordered Sig/Louie Route Start Time Stop Time Status Last Admin Dose Admin Acetaminophen/ Hydrocodone Bitart 1 tab ONCE ONCE PO 12/09/24 17:15 12/09/24 17:16 DC 12/09/24 17:21 1 TAB Azithromycin 250 ml @ 125 mls/hr ONCE ONCE IV 12/09/24 13:00 12/09/24 14:59 DC 12/09/24 13:12 125 MLS/HR Erythromycin 1 applic ONCE ONCE OP 12/09/24 13:15 12/09/24 13:16 DC 12/09/24 13:37 1 APPLIC Sodium Chloride 500 ml @ 500 mls/hr Q1H ONCE IV 12/09/24 12:00 12/09/24 12:59 DC 12/09/24 12:36 500 MLS/HR Assessment/Plan Assessment/Plan Pneumonia, unspecified organism Acute kidney injury Conjunctivitis Viral conjunctivitis, unspecified Generalized weakness Plan 1. Admit to telemetry unit 2. Breathing treatment 3. Pain control management 4. IV antibiotic management 5. Management of fluids and electrolytes 6. Consultation for hospitalist 7. Diagnostic test chest x-ray 8. DVT prophylaxis-on SCDs 9. Repeat labs CBC, CMP in a.m. 10. Home medication reviewed and reconciled 11. Continue with current medical management 12. Treatment plan discussed with patient and RN. Patient verbalized understanding. Plan discussed with: Patient, Other (RN) My Orders Orders - GREGORY RAMIREZ DNP Procedure Category Date Status Time Azithromycin 500mg/ PHA 12/10/24 Verified 250ml (Zithromax 50 10:00 Ceftriaxone Ivpb PHA 12/10/24 Verified Rocephin 09:00 Erythromy Opth Oint PHA 12/09/24 Verified 5mg/Gm 1gm 22:00 Albuterol Medneb PHA 12/09/24 Verified (Ventolin Medneb) 21:15 Tamsulosin PHA 12/10/24 Verified Hydrochloride (Flomax) 18:00 (Nf) Xarelto PHA 12/10/24 Verified 10:00 Admit ADMIT 12/09/24 Verified 21:04 Allergies [facility] 12/09/24 Verified 21:04 Code Status CODE 12/09/24 Verified 21:04 Sodium Chloride Lock PHA 12/09/24 Verified (Saline Lock Ns) 22:00 Oxygen Per Hour RT 12/09/24 Verified 21:04 Hydrocodone-Acet [facility] 12/09/24 Verified 5/325mg Tab ([place] 21:15 Ondansetron Hcl PHA 12/09/24 Verified (Zofran) 21:[address] [facility] 12/09/24 Verified Capsule (Colace 21:15 Fall Risk Precautions [facility] 12/09/[address] 21:04 Complete Blood Count LAB 12/10/24 Verified 04:00 Comprehensive LAB 12/10/24 Verified Metabolic Panel 04:00 Cardiac DIET 12/10/24 Verified Diet-2gna,Lofat,Lochol Breakfast Condition: Serious CHEPE 12/09/24 Verified 21:04 Acetaminophen Tablet PHA 12/09/24 Verified (Tylenol Tablet) 21:15 Maintain Bed Rest CHEPE 12/09/24 Verified 21:04 Sequential CHEPE 12/09/24 Verified Compression Device Nitroglycerin [facility] 12/09/24 Verified Sublingual (Ntrostat 21:15 Morphine Sulfate PHA 12/09/24 Verified Injection 21:15 Stat Ekg For Chest [facility] 12/09/24 Verified Pain 21:04 Notify Md Of Changes [facility] 12/09/24 Verified From Base 21:04 Bobbin Fixer For [facility] 12/09/24 Verified 24 Hours 21:04 Emergency Dysrhythmia [facility] 12/09/24 Verified Protocol 21:04 Rhythm Strips Once [facility] 12/09/24 Verified Every Shift 21:04 Oxygen By Nasal RT 12/09/24 Verified Cannula 21:04 Problem List: (1) Pneumonia, unspecified organism (2) Acute kidney injury (3) Conjunctivitis (4) Viral conjunctivitis, unspecified (5) Generalized weakness Date of Service: Dec 09, 2024 Billing Provider: GREGORY RAMIREZ DNP Common Visit Codes: [id number] INP/OBS CARE (HIGH) GREGORY RAMIREZ DNP Dec 09, 2024 21:14
[2024-12-09] MEDS ORDERED: NITROGLYCERIN 0.4 MG SL TAB SL PRN (21:15)
[2024-12-09] MEDS ORDERED: ALBUTEROL SULF 2.5 MG/0.5ML(0.5%) NEB SOLN NEB PRN (21:15)
[2024-12-09] MEDS ORDERED: MORPHINE SULFATE INJ 2 MG/ml SYRG IV PRN (21:15)
[2024-12-09] MEDS ORDERED: ONDANSETRON HCL 4 MG/2 ML VIAL IV PRN (21:15)
[2024-12-09 21:52] VITALS: BP 111/44; PULSE 82; RESP 16; TEMP 97.7
[2024-12-09] MEDS: SODIUM CHLOR 0.9% PF (SALINE LOCK) 10ML VIAL/SYR IV SCH (22:00)
[2024-12-09] MEDS: ERYTHROMY OPTH OINT 5mg/gm 1gm or 3.5gm tube OP SCH (22:00)
[2024-12-10] VITALS (8 sets, daily range): BP systolic 102–131; BP diastolic 51–71; PULSE 68–116; RESP 16–20; TEMP 97.8–98.1; O2SAT 93–100
[2024-12-10 04:22] LABS: Hematocrit 37.9 % (41.0-53.0); Hemoglobin 12.4 g/dL (13.5-17.5); Mean Corpuscular Hemoglobin 32.4 pg (28.0-32.0); Mean Corpuscular Volume 98.9 fL (80.0-100.0); Nucleated Red Blood Cells % 0.0 %
[2024-12-10 04:34] LABS: Alanine Aminotransferase 24 U/L (7-40); Anion Gap 9 (5-15); BUN/Creatinine Ratio 17.1 (10.0-20.0); Calcium 8.7 mg/dL (8.7-10.4); Carbon Dioxide 25 mmol/L (20-31); Chloride 105 mmol/L (98-107); Potassium 4.5 mmol/L (3.5-5.1); Sodium 139 mmol/L (136-145); Total Protein 6.6 g/dL (5.7-8.2)
[2024-12-10 04:35] LABS: Bilirubin, Total 0.4 mg/dL (0.2-1.0)
[2024-12-10 04:37] LABS: Albumin 3.1 g/dL (3.2-4.8); Alkaline Phosphatase 298 U/L (46-116); Blood Urea Nitrogen 27 mg/dL (9-23); Glucose 111 mg/dL (74-106)
[2024-12-10] MEDS: HYDROcodone-ACET 5/325MG TAB PO PRN (04:38)
[2024-12-10] MEDS ORDERED: AZITHROMYCIN 500MG/ 250ML 250 ML IV SCH (13:00)
--- NOTE | 2024-12-10 13:46 | DVHPN2 ---
Subjective Patient complaining of shortness of breaths Reviewed: Care Plan, H&P, Labs, Medications Changes from previous H/P or p: No Changes General: Per HPI Eyes: No Pain, No Vision change, No Conjunctivae inflammation, No Eyelid inflammation, No Other, No Redness ENT: No Ear pain, No Ear discharge, No Nose pain, No Nose discharge, No Nose congestion, No Mouth pain, No Mouth swelling, No Throat pain, No Throat swelling, No Other Cardiovascular: No Chest Pain, No Palpitations, No Orthopnea, No Paroxysmal Noc. Dyspnea, No Edema, No Lt Headedness, No Other Respiratory: No Cough, No Dry, No Shortness of breath, No SOB with excertion, No Wheezing, No Hemoptysis, No Pleuritic Pain, No Sputum, No Other Gastrointestinal: No Nausea, No Vomiting, No Abdominal Pain, No Diarrhea, No Constipation, No Melena, No Hematochezia, No Other Genitourinary: No Dysuria, No Frequency, No Incontinence, No Hematuria, No Retention, No Other Musculoskeletal: No other, No neck pain, No shoulder pain, No arm pain, No back pain, No hand pain, No leg pain, No foot pain Objective Vitals Vital Signs Date Time Temp Pulse Resp B/P (MAP) Pulse Ox O2 Delivery O2 Flow Rate FiO2 12/10/24 13:14 74 18 111/57 (75) 96 12/10/24 11:25 Nasal Cannula* 3 32 12/10/24 02:16 97.8 97.8 Intake/Output Intake and Output 12/10/24 07:00 Intake Total 750 ml Balance 750 ml IV Total 750 ml General Appearance: Alert, Oriented X3, Cooperative, mild distress HEENT: Atraumatic, PERRLA Lungs: Clear to auscultation, Normal air movement Cardiovascular: Normal S1, Normal S2 Abdomen: Normal bowel sounds, Soft, No tenderness, No hepatospenomegaly, No masses Back: Flank Tenderness, Midline Tenderness Musculoskeletal: Normal sensory function, Normal motor function Neuro: Normal gait, Normal speech Skin: Dry, Intact Psych/Mental Status: Mental status NL, Mood NL Medications Current Medications Medications Dose Ordered Sig/Louie Route Start Time Stop Time Status Last Admin Dose Admin Azithromycin 250 ml @ 125 mls/hr DAILY@1300 IV 12/10/24 13:00 UNV Ceftriaxone Sodium 50 ml @ 100 mls/hr DAILY@1200 IV 12/10/24 12:00 12/10/24 12:39 100 MLS/HR Erythromycin 1 applic Q4HR OP 12/09/24 22:00 12/10/24 10:00 1 APPLIC Albuterol 2.5 mg Q4HPRN PRN NEB 12/09/24 21:15 Tamsulosin HCl 0.4 mg QPM PO 12/10/24 18:00 Sodium Chloride 10 ml Q8HR IV 12/09/24 22:00 12/10/24 06:00 10 ML Acetaminophen/ Hydrocodone Bitart 1 tab Q4HP PRN PO 12/09/24 21:15 12/10/24 04:38 1 TAB Docusate Sodium 100 mg BIDPRN PRN PO 12/09/24 21:15 Acetaminophen 650 mg Q6HP PRN PO 12/09/24 21:15 Nitroglycerin 0.4 mg Q5MINP PRN SL 12/09/24 21:15 Morphine Sulfate 2 mg Q30M PRN IV 12/09/24 21:15 Rivaroxaban 15 mg QPM PO 12/10/24 18:00 Laboratory Results Laboratory Tests 12/10/24 03:34 Chemistry Test 12/10/24 03:34 Albumin 3.1 g/dL (3.2-4.8) L Calcium Level 8.7 mg/dL (8.7-10.4) Total Protein 6.6 g/dL (5.7-8.2) LFT Test 12/10/24 03:34 Alanine Aminotransferase (ALT) 24 U/L (7-40) Alkaline Phosphatase 298 U/L (46-116) H Aspartate Amino Transferase (AST) 28 U/L (13-40) Total Bilirubin 0.4 mg/dL (0.2-1.0) Urinalysis Test 12/09/24 13:00 Urine Color Yellow (Yellow) Urine Clarity Turbid (Clear) H Urine pH 5.0 (5.0-9.0) Urine Specific [place] 1.021 (1.001-1.035) Urine Protein 1+ (Negative) H Urine Ketones Negative (Negative) Urine Blood 3+ /uL (Negative) H Urine Nitrite Negative (Negative) Urine Bilirubin Negative (Negative) Urine Urobilinogen Normal mg/dL (Negative) Urine Leukocyte Esterase 1+ /uL (Negative) Urine RBC 1282 /hpf (0 - 3) Urine Microscopic WBC 216 /HPF (0-3) H Urine Squamous Epithelial Cells Few /hpf (<5) Urine Bacteria None seen /hpf (None Seen) Urine Mucus Few (None Seen) Urine Glucose 4+ mg/dL (Normal) H Labs and/or images reviewed: Labs reviewed by me, Image(s) reviewed by me Assessment/Plan Assessment/Plan Impression: -acute hypoxic respiratory failure -community-acquired pneumonia, probable Gram-positive/Gram-negative etiology -acute on chronic systolic heart failure -atrial fibrillation -anxiety disorder -decubitus ulcer -COPD -cachexia Plan: -antibiotic therapy, Rocephin, doxycycline -IV diuresis -bronchodilators -continue anticoagulation with Xarelto -continue guideline directed medical therapy for heart failure -PUD prophylaxis -start nutritional supplementation with meals -repeat labs and chest x-ray in a.m. Total time spent with patient discussing and formulating plan of care: 35 minutes. This medical document was created using an electronic medical record system with [email or web address] dictation system. Although this document has been carefully reviewed, there may still be some phonetic and typographical errors. These areas are purely typographical due to imperfections of the software programs, and do not reflect any compromise in the patient's medical care. Plan discussed with: Patient, Other (RN) My Orders Orders - JANA ORNELAS NP Procedure Category Date Status Time Doxycycline PHA 12/10/24 Verified 100mg/100ml 13:45 Furosemide Injection PHA 12/11/24 Verified (Lasix Injection) 10:00 Nutritional PHA 12/10/24 Verified Supplements (Ensure 18:00 Basic Metabolic Panel LAB 12/11/24 Verified 04:00 Chest Portable XY 12/11/24 Verified 04:00 Date of Service: Dec 10, 2024 Billing Provider: JANA ORNELAS NP Common Visit Codes: [id number] INP/OBS CARE(HIGH) JANA ORNELAS NP Dec 10, 2024 13:46
[2024-12-10] MEDS: DOXYCYCLINE 100MG/100ML 100 ML IV SCH (16:19)
[2024-12-10] MEDS: RIVAROXABAN 15 MG TAB PO SCH (17:48)
[2024-12-10] MEDS: TAMSULOSIN HYDROCHLORIDE 0.4 MG CAP PO SCH (17:49)
[2024-12-10] MEDS: Ensure HIGH Protein Chocolate 8oz Bottle PO SCH (18:00)
[2024-12-11] VITALS (9 sets, daily range): BP systolic 88–102; BP diastolic 47–62; PULSE 70–87; RESP 16–23; TEMP 97.2–97.7; O2SAT 96–100
[2024-12-11] MEDS: ACETAMINOPHEN 325 MG TAB PO PRN (00:12)
[2024-12-11] MEDS: ALBUMIN 5% 250 ML IV ONE (00:46)
--- NOTE | 2024-12-11 06:21 | DVH ---
CHEST RADIOGRAPH Indication: chf, pna Technique: Single frontal view of the chest was obtained COMPARISON: XY CHEST PORTABLE on DOS: 12/09/24, XY CHEST PORTABLE on DOS: 11/09/24, XY CHEST PORTABLE o n DOS: 10/26/24, XY CHEST PORTABLE on DOS: 10/11/24, XY CHEST PORTABLE on DOS: 09/24/24 FINDINGS: Lines and Tubes: None Lungs: Chronic appearing bilateral interstitial pulmonary markings. Left pleural effusion and basilar pulmonary airspace disease. No pneumothorax. Cardiomediastinal contours: Cardiomegaly. Bones: Unremarkable IMPRESSION: 1. Chronic appearing bilateral interstitial pulmonary markings. 2. Left pleural effusion and basilar pulmonary airspace disease. 3. Cardiomegaly.
[2024-12-11 06:34] LABS: Chloride 103 mmol/L (98-107); Potassium 4.8 mmol/L (3.5-5.1); Sodium 137 mmol/L (136-145)
[2024-12-11 06:35] LABS: Anion Gap 6 (5-15); Carbon Dioxide 28 mmol/L (20-31)
[2024-12-11 06:36] LABS: Calcium 8.8 mg/dL (8.7-10.4)
[2024-12-11 06:41] LABS: BUN/Creatinine Ratio 19.4 (10.0-20.0)
[2024-12-11 06:42] LABS: Blood Urea Nitrogen 26 mg/dL (9-23); Glucose 72 mg/dL (74-106)
--- NOTE | 2024-12-11 10:48 | DVHPN2 ---
Subjective Patient complaining of shortness of breath Reviewed: Care Plan, H&P, Labs, Medications Changes from previous H/P or p: No Changes General: Per HPI Eyes: No Pain, No Vision change, No Conjunctivae inflammation, No Eyelid inflammation, No Other, No Redness ENT: No Ear pain, No Ear discharge, No Nose pain, No Nose discharge, No Nose congestion, No Mouth pain, No Mouth swelling, No Throat pain, No Throat swelling, No Other Cardiovascular: No Chest Pain, No Palpitations, No Orthopnea, No Paroxysmal Noc. Dyspnea, No Edema, No Lt Headedness, No Other Respiratory: No Cough, No Dry, No Shortness of breath, No SOB with excertion, No Wheezing, No Hemoptysis, No Pleuritic Pain, No Sputum, No Other Gastrointestinal: No Nausea, No Vomiting, No Abdominal Pain, No Diarrhea, No Constipation, No Melena, No Hematochezia, No Other Genitourinary: No Dysuria, No Frequency, No Incontinence, No Hematuria, No Retention, No Other Musculoskeletal: No other, No neck pain, No shoulder pain, No arm pain, No back pain, No hand pain, No leg pain, No foot pain Objective Vitals Vital Signs Date Time Temp Pulse Resp B/P (MAP) Pulse Ox O2 Delivery O2 Flow Rate FiO2 12/11/24 08:48 97.5 75 18 102/62 (75) 100 97.5 12/11/24 08:00 Nasal Cannula 2.0 12/11/24 08:00 28 Intake/Output Intake and Output 12/11/24 07:00 Intake Total 1364 ml Output Total 950 ml Balance 414 ml Intake Oral 964 ml IV Total 400 ml Output Urine Total 950 ml # Voids 1 # Bowel Movements 1 General Appearance: Alert, Oriented X3, Cooperative, mild distress HEENT: Atraumatic, PERRLA Lungs: Clear to auscultation, Normal air movement Cardiovascular: Normal S1, Normal S2 Abdomen: Normal bowel sounds, Soft, No tenderness, No hepatospenomegaly, No masses Back: Flank Tenderness, Midline Tenderness Musculoskeletal: Normal sensory function, Normal motor function Neuro: Normal gait, Normal speech Skin: Dry, Intact Psych/Mental Status: Mental status NL, Mood NL Medications Current Medications Medications Dose Ordered Sig/Louie Route Start Time Stop Time Status Last Admin Dose Admin Ceftriaxone Sodium 50 ml @ 100 mls/hr DAILY@1200 IV 9/21/25 12:00 12/10/24 12:39 100 MLS/HR Erythromycin 1 applic Q4HR OP 12/09/24 22:00 12/11/24 05:26 1 APPLIC Albuterol 2.5 mg Q4HPRN PRN NEB 12/09/24 21:15 Tamsulosin HCl 0.4 mg QPM PO 12/10/24 18:00 12/10/24 17:49 0.4 MG Sodium Chloride 10 ml Q8HR IV 12/09/24 22:00 12/11/24 05:26 10 ML Acetaminophen/ Hydrocodone Bitart 1 tab Q4HP PRN PO 12/09/24 21:15 12/10/24 04:38 1 TAB Docusate Sodium 100 mg BIDPRN PRN PO 12/09/24 21:15 Acetaminophen 650 mg Q6HP PRN PO 12/09/24 21:15 12/11/24 00:12 650 MG Nitroglycerin 0.4 mg Q5MINP PRN SL 12/09/24 21:15 Morphine Sulfate 2 mg Q30M PRN IV 12/09/24 21:15 Rivaroxaban 15 mg QPM PO 12/10/24 18:00 12/10/24 17:48 15 MG Doxycycline Hyclate 100 ml @ 50 mls/hr Q12H IV 12/10/24 13:45 12/11/24 02:07 50 MLS/HR Furosemide 20 mg DAILY IV 12/11/24 10:00 Enteral Nutritional Formula 240 ml TIDWM PO 12/10/24 18:00 12/10/24 18:00 240 ML Laboratory Results Laboratory Tests 12/10/24 03:34 12/11/24 02:53 Chemistry Test 12/11/24 02:53 Calcium Level 8.8 mg/dL (8.7-10.4) Urinalysis Test 12/09/24 13:00 Urine Color Yellow (Yellow) Urine Clarity Turbid (Clear) H Urine pH 5.0 (5.0-9.0) Urine Specific [place] 1.021 (1.001-1.035) Urine Protein 1+ (Negative) H Urine Ketones Negative (Negative) Urine Blood 3+ /uL (Negative) H Urine Nitrite Negative (Negative) Urine Bilirubin Negative (Negative) Urine Urobilinogen Normal mg/dL (Negative) Urine Leukocyte Esterase 1+ /uL (Negative) Urine RBC 1282 /hpf (0 - 3) Urine Microscopic WBC 216 /HPF (0-3) H Urine Squamous Epithelial Cells Few /hpf (<5) Urine Bacteria None seen /hpf (None Seen) Urine Mucus Few (None Seen) Urine Glucose 4+ mg/dL (Normal) H Labs and/or images reviewed: Labs reviewed by me, Image(s) reviewed by me Assessment/Plan Assessment/Plan Impression: -acute hypoxic respiratory failure -community-acquired pneumonia, probable Gram-positive/Gram-negative etiology -acute on chronic systolic heart failure -atrial fibrillation -anxiety disorder -decubitus ulcer -COPD -cachexia Plan: -antibiotic therapy, Rocephin, doxycycline -IV diuresis -bronchodilators -continue anticoagulation with Xarelto -continue guideline directed medical therapy for heart failure -PUD prophylaxis -start nutritional supplementation with meals -physical therapy -repeat labs in a.m. -transfer to Medical/Surgical Total time spent with patient discussing and formulating plan of care: 35 minutes. This medical document was created using an electronic medical record system with [employer] dictation system. Although this document has been carefully reviewed, there may still be some phonetic and typographical errors. These areas are purely typographical due to imperfections of the software programs, and do not reflect any compromise in the patient's medical care. Plan discussed with: Patient, Other (RN) My Orders Orders - JANA ORNELAS NP Procedure Category Date Status Time Doxycycline PHA 12/10/24 In Process 100mg/100ml 13:45 Furosemide Injection PHA 12/11/24 In Process (Lasix Injection) 10:00 Nutritional PHA 12/10/24 In Process Supplements (Ensure 18:00 Chest Portable XY 12/11/24 Resulted 04:00 * Wound Consult CONS 12/10/24 Transmitted Pt Request For Service PT 12/11/24 Logged 10:41 Basic Metabolic Panel LAB 12/12/24 Verified 04:00 Magnesium LAB 12/12/24 Verified 04:00 Chest Portable XY 12/12/24 Logged 04:00 Transfer Orders XFER 12/11/24 Transmitted 10:43 Date of Service: Dec 11, 2024 Billing Provider: JANA ORNELAS NP Common Visit Codes: [id number] INP/OBS CARE(HIGH) JANA ORNELAS NP Dec 11, 2024 10:48
[2024-12-11] MEDS: FUROSEMIDE 20 MG/2 ML VIAL IV SCH (11:54)
[2024-12-11] MEDS: SODIUM CHLORIDE 0.9% 1,000 ML IV ONE (17:53)
[2024-12-12] VITALS (9 sets, daily range): BP systolic 93–104; BP diastolic 48–60; PULSE 74–85; RESP 16–22; TEMP 97.4–97.9; O2SAT 97–100
--- NOTE | 2024-12-12 05:39 | DVH ---
CHEST RADIOGRAPH Indication: pna Technique: Single frontal view of the chest was obtained COMPARISON: XY CHEST PORTABLE on DOS: 12/11/24, XY CHEST PORTABLE on DOS: 12/09/24, XY CHEST PORTABLE o n DOS: 11/09/24, XY CHEST PORTABLE on DOS: 10/26/24, XY CHEST PORTABLE on DOS: 10/11/24 FINDINGS: Lines and Tubes: None Lungs: Findings of chronic obstructive pulmonary disease. Multifocal airspace disease, unchanged comp ared to prior exams. Pleura: No effusion. No pneumothorax. Cardiomediastinal contours: Unremarkable Bones: Unremarkable IMPRESSION: Findings of chronic obstructive pulmonary disease. Multifocal airspace disease, unchanged compared to prior exams.
[2024-12-12 06:00] LABS: Hematocrit 35.2 % (41.0-53.0); Hemoglobin 12.0 g/dL (13.5-17.5); Mean Corpuscular Hemoglobin 33.3 pg (28.0-32.0); Mean Corpuscular Volume 97.7 fL (80.0-100.0); Nucleated Red Blood Cells % 0.1 %
[2024-12-12 06:09] LABS: Anion Gap 8 (5-15); Carbon Dioxide 29 mmol/L (20-31); Chloride 98 mmol/L (98-107); Potassium 4.4 mmol/L (3.5-5.1)
[2024-12-12 06:11] LABS: Calcium 9.0 mg/dL (8.7-10.4)
[2024-12-12 06:15] LABS: Glucose 78 mg/dL (74-106)
[2024-12-12 06:16] LABS: BUN/Creatinine Ratio 24.8 (10.0-20.0); Blood Urea Nitrogen 32 mg/dL (9-23); Magnesium 2.0 mg/dL (1.6-2.6); Sodium 135 mmol/L (136-145)
--- NOTE | 2024-12-12 10:54 | DVHPN2 ---
Subjective Patient complaining of shortness of breath Reviewed: Care Plan, H&P, Labs, Medications Changes from previous H/P or p: No Changes General: Per HPI Eyes: No Pain, No Vision change, No Conjunctivae inflammation, No Eyelid inflammation, No Other, No Redness ENT: No Ear pain, No Ear discharge, No Nose pain, No Nose discharge, No Nose congestion, No Mouth pain, No Mouth swelling, No Throat pain, No Throat swelling, No Other Cardiovascular: No Chest Pain, No Palpitations, No Orthopnea, No Paroxysmal Noc. Dyspnea, No Edema, No Lt Headedness, No Other Respiratory: No Cough, No Dry, No Shortness of breath, No SOB with excertion, No Wheezing, No Hemoptysis, No Pleuritic Pain, No Sputum, No Other Gastrointestinal: No Nausea, No Vomiting, No Abdominal Pain, No Diarrhea, No Constipation, No Melena, No Hematochezia, No Other Genitourinary: No Dysuria, No Frequency, No Incontinence, No Hematuria, No Retention, No Other Musculoskeletal: No other, No neck pain, No shoulder pain, No arm pain, No back pain, No hand pain, No leg pain, No foot pain Objective Vitals Vital Signs Date Time Temp Pulse Resp B/P (MAP) Pulse Ox O2 Delivery O2 Flow Rate FiO2 12/12/24 08:56 97.6 74 16 93/60 (71) 98 97.6 12/12/24 06:51 Nasal Cannula* 2 28 Intake/Output Intake and Output 12/12/24 07:00 Intake Total 1290 ml Output Total 1710 ml Balance -420 ml Intake Oral 1040 ml IV Total 250 ml Output Urine Total 1710 ml # Voids 1 # Bowel Movements 4 General Appearance: Alert, Oriented X3, Cooperative, mild distress HEENT: Atraumatic, PERRLA Lungs: Clear to auscultation, Normal air movement Cardiovascular: Normal S1, Normal S2 Abdomen: Normal bowel sounds, Soft, No tenderness, No hepatospenomegaly, No masses Back: Flank Tenderness, Midline Tenderness Musculoskeletal: Normal sensory function, Normal motor function Neuro: Normal gait, Normal speech Skin: Dry, Intact Psych/Mental Status: Mental status NL, Mood NL Medications Current Medications Medications Dose Ordered Sig/Louie Route Start Time Stop Time Status Last Admin Dose Admin Ceftriaxone Sodium 50 ml @ 100 mls/hr DAILY@1200 IV 12/10/24 12:00 12/11/24 11:55 100 MLS/HR Erythromycin 1 applic Q4HR OP 12/09/24 22:00 12/11/24 17:53 1 APPLIC Albuterol 2.5 mg Q4HPRN PRN NEB 12/09/24 21:15 Tamsulosin HCl 0.4 mg QPM PO 12/10/24 18:00 12/11/24 17:53 0.4 MG Sodium Chloride 10 ml Q8HR IV 12/09/24 22:00 12/12/24 05:24 10 ML Acetaminophen/ Hydrocodone Bitart 1 tab Q4HP PRN PO 12/09/24 21:15 12/10/24 04:38 1 TAB Docusate Sodium 100 mg BIDPRN PRN PO 12/09/24 21:15 Acetaminophen 650 mg Q6HP PRN PO 12/09/24 21:15 12/12/24 01:18 650 MG Nitroglycerin 0.4 mg Q5MINP PRN SL 12/09/24 21:15 Morphine Sulfate 2 mg Q30M PRN IV 12/09/24 21:15 Rivaroxaban 15 mg QPM PO 12/10/24 18:00 12/11/24 17:54 15 MG Doxycycline Hyclate 100 ml @ 50 mls/hr Q12H IV 12/10/24 13:45 12/12/24 01:18 50 MLS/HR Furosemide 20 mg DAILY IV 12/11/24 10:00 12/11/24 11:54 20 MG Enteral Nutritional Formula 240 ml TIDWM PO 12/10/24 18:00 12/12/24 09:05 240 ML Laboratory Results Laboratory Tests 12/12/24 05:05 Chemistry Test 12/12/24 05:05 Calcium Level 9.0 mg/dL (8.7-10.4) Magnesium Level 2.0 mg/dL (1.6-2.6) Urinalysis Test 12/09/24 13:00 Urine Color Yellow (Yellow) Urine Clarity Turbid (Clear) H Urine pH 5.0 (5.0-9.0) Urine Specific [place] 1.021 (1.001-1.035) Urine Protein 1+ (Negative) H Urine Ketones Negative (Negative) Urine Blood 3+ /uL (Negative) H Urine Nitrite Negative (Negative) Urine Bilirubin Negative (Negative) Urine Urobilinogen Normal mg/dL (Negative) Urine Leukocyte Esterase 1+ /uL (Negative) Urine RBC 1282 /hpf (0 - 3) Urine Microscopic WBC 216 /HPF (0-3) H Urine Squamous Epithelial Cells Few /hpf (<5) Urine Bacteria None seen /hpf (None Seen) Urine Mucus Few (None Seen) Urine Glucose 4+ mg/dL (Normal) H Labs and/or images reviewed: Labs reviewed by me, Image(s) reviewed by me Assessment/Plan Assessment/Plan Impression: -acute hypoxic respiratory failure -community-acquired pneumonia, probable Gram-positive/Gram-negative etiology -acute on chronic systolic heart failure -atrial fibrillation -anxiety disorder -decubitus ulcer -COPD -cachexia Plan: -antibiotic therapy, Rocephin, doxycycline -change lasix to po -bronchodilators -continue anticoagulation with Xarelto -continue guideline directed medical therapy for heart failure -PUD prophylaxis -Continue ensure -physical therapy -repeat labs in a.m. Total time spent with patient discussing and formulating plan of care: 35 minutes. This medical document was created using an electronic medical record system with [employer] dictation system. Although this document has been carefully reviewed, there may still be some phonetic and typographical errors. These areas are purely typographical due to imperfections of the software programs, and do not reflect any compromise in the patient's medical care. Plan discussed with: Patient, Other (RN) My Orders Orders - JANA ORNELAS NP Procedure Category Date Status Time * Dietary Consult CONS 12/11/24 Transmitted 13:52 Apply Z-Guard CHEPE 12/11/24 In Process 11:36 Date of Service: Dec 12, 2024 Billing Provider: JANA ORNELAS NP Common Visit Codes: [id number] INP/OBS CARE(HIGH) JANA ORNELAS NP Dec 12, 2024 10:54
[2024-12-12] MEDS: ZOLPIDEM TARTRATE 5 MG TAB PO ONE (22:39)
[2024-12-13] VITALS (8 sets, daily range): BP systolic 97–116; BP diastolic 60–67; PULSE 75–95; RESP 17–18; TEMP 97.4–98.3; O2SAT 90–99
[2024-12-13 05:05] LABS: Hematocrit 36.5 % (41.0-53.0); Hemoglobin 12.1 g/dL (13.5-17.5); Mean Corpuscular Hemoglobin 32.3 pg (28.0-32.0); Mean Corpuscular Volume 97.1 fL (80.0-100.0); Nucleated Red Blood Cells % 0.1 %
[2024-12-13 05:14] LABS: Chloride 98 mmol/L (98-107); Potassium 4.4 mmol/L (3.5-5.1)
[2024-12-13 05:15] LABS: Anion Gap 7 (5-15); Carbon Dioxide 30 mmol/L (20-31); Sodium 135 mmol/L (136-145)
[2024-12-13 05:16] LABS: Calcium 9.0 mg/dL (8.7-10.4)
[2024-12-13 05:20] LABS: BUN/Creatinine Ratio 23.5 (10.0-20.0); Glucose 81 mg/dL (74-106)
[2024-12-13 05:21] LABS: Blood Urea Nitrogen 27 mg/dL (9-23)
--- NOTE | 2024-12-13 05:21 | DVH ---
CHEST RADIOGRAPH Indication: pna Technique: Single frontal view of the chest was obtained COMPARISON: XY CHEST PORTABLE on DOS: 12/12/24, XY CHEST PORTABLE on DOS: 12/11/24, XY CHEST PORTABLE o n DOS: 12/09/24, XY CHEST PORTABLE on DOS: 11/09/24, XY CHEST PORTABLE on DOS: 10/26/24 FINDINGS: Lines and Tubes: None Lungs: Unchanged COPD. Multifocal airspace disease most prominent in the left lower lobe. Pleura: No effusion.No pneumothorax. Cardiomediastinal contours: Unremarkable Bones: Unremarkable IMPRESSION: Unchanged COPD. Multifocal airspace disease most prominent in the left lower lobe.
[2024-12-13] MEDS: FUROSEMIDE 20 MG TAB PO SCH (10:46)
--- NOTE | 2024-12-13 10:57 | DVHPN2 ---
Subjective Patient complaining of shortness of breath Reviewed: Care Plan, H&P, Labs, Medications Changes from previous H/P or p: No Changes General: Per HPI Eyes: No Pain, No Vision change, No Conjunctivae inflammation, No Eyelid inflammation, No Other, No Redness ENT: No Ear pain, No Ear discharge, No Nose pain, No Nose discharge, No Nose congestion, No Mouth pain, No Mouth swelling, No Throat pain, No Throat swelling, No Other Cardiovascular: No Chest Pain, No Palpitations, No Orthopnea, No Paroxysmal Noc. Dyspnea, No Edema, No Lt Headedness, No Other Respiratory: No Cough, No Dry, No Shortness of breath, No SOB with excertion, No Wheezing, No Hemoptysis, No Pleuritic Pain, No Sputum, No Other Gastrointestinal: No Nausea, No Vomiting, No Abdominal Pain, No Diarrhea, No Constipation, No Melena, No Hematochezia, No Other Genitourinary: No Dysuria, No Frequency, No Incontinence, No Hematuria, No Retention, No Other Musculoskeletal: No other, No neck pain, No shoulder pain, No arm pain, No back pain, No hand pain, No leg pain, No foot pain Objective Vitals Vital Signs Date Time Temp Pulse Resp B/P (MAP) Pulse Ox O2 Delivery O2 Flow Rate FiO2 12/13/24 09:00 97.6 77 17 116/67 (83) 95 97.6 12/13/24 07:13 Nasal Cannula* 2 28 Intake/Output Intake and Output 12/13/24 07:00 Intake Total 1350 ml Output Total 700 ml Balance 650 ml Intake Oral 1100 ml IV Total 250 ml Output Urine Total 700 ml # Voids 4 # Bowel Movements 1 General Appearance: Alert, Oriented X3, Cooperative, mild distress HEENT: Atraumatic, PERRLA Lungs: Clear to auscultation, Normal air movement Cardiovascular: Normal S1, Normal S2 Abdomen: Normal bowel sounds, Soft, No tenderness, No hepatospenomegaly, No masses Back: Flank Tenderness, Midline Tenderness Musculoskeletal: Normal sensory function, Normal motor function Neuro: Normal gait, Normal speech Skin: Dry, Intact Psych/Mental Status: Mental status NL, Mood NL Medications Current Medications Medications Dose Ordered Sig/Louie Route Start Time Stop Time Status Last Admin Dose Admin Ceftriaxone Sodium 50 ml @ 100 mls/hr DAILY@1200 IV 12/10/24 12:00 12/12/24 12:35 100 MLS/HR Albuterol 2.5 mg Q4HPRN PRN NEB 12/09/24 21:15 Tamsulosin HCl 0.4 mg QPM PO 12/10/24 18:00 12/12/24 18:03 0.4 MG Sodium Chloride 10 ml Q8HR IV 12/09/24 22:00 12/13/24 05:46 10 ML Acetaminophen/ Hydrocodone Bitart 1 tab Q4HP PRN PO 12/09/24 21:15 12/10/24 04:38 1 TAB Docusate Sodium 100 mg BIDPRN PRN PO 12/09/24 21:15 Acetaminophen 650 mg Q6HP PRN PO 12/09/24 21:15 12/12/24 18:04 650 MG Nitroglycerin 0.4 mg Q5MINP PRN SL 12/09/24 21:15 Morphine Sulfate 2 mg Q30M PRN IV 12/09/24 21:15 Rivaroxaban 15 mg QPM PO 12/10/24 18:00 12/12/24 18:07 15 MG Doxycycline Hyclate 100 ml @ 50 mls/hr Q12H IV 12/10/24 13:45 12/13/24 01:30 50 MLS/HR Enteral Nutritional Formula 240 ml TIDWM PO 12/10/24 18:00 12/12/24 18:07 240 ML Furosemide 20 mg DAILY PO 12/13/24 10:00 Laboratory Results Laboratory Tests 12/13/24 04:46 Chemistry Test 12/13/24 04:46 Calcium Level 9.0 mg/dL (8.7-10.4) Urinalysis Test 12/09/24 13:00 Urine Color Yellow (Yellow) Urine Clarity Turbid (Clear) H Urine pH 5.0 (5.0-9.0) Urine Specific [place] 1.021 (1.001-1.035) Urine Protein 1+ (Negative) H Urine Ketones Negative (Negative) Urine Blood 3+ /uL (Negative) H Urine Nitrite Negative (Negative) Urine Bilirubin Negative (Negative) Urine Urobilinogen Normal mg/dL (Negative) Urine Leukocyte Esterase 1+ /uL (Negative) Urine RBC 1282 /hpf (0 - 3) Urine Microscopic WBC 216 /HPF (0-3) H Urine Squamous Epithelial Cells Few /hpf (<5) Urine Bacteria None seen /hpf (None Seen) Urine Mucus Few (None Seen) Urine Glucose 4+ mg/dL (Normal) H Labs and/or images reviewed: Labs reviewed by me, Image(s) reviewed by me Assessment/Plan Assessment/Plan Impression: -acute hypoxic respiratory failure -community-acquired pneumonia, probable Gram-positive/Gram-negative etiology -acute on chronic systolic heart failure -atrial fibrillation -anxiety disorder -decubitus ulcer -COPD -cachexia Plan: -antibiotic therapy, Rocephin, doxycycline -change lasix to po -bronchodilators -continue anticoagulation with Xarelto -continue guideline directed medical therapy for heart failure -PUD prophylaxis -Continue ensure -physical therapy -repeat labs in a.m. Total time spent with patient discussing and formulating plan of care: 35 minutes. This medical document was created using an electronic medical record system with [employer] dictation system. Although this document has been carefully reviewed, there may still be some phonetic and typographical errors. These areas are purely typographical due to imperfections of the software programs, and do not reflect any compromise in the patient's medical care. Plan discussed with: Patient, Other (RN) My Orders Orders - JANA ORNELAS NP Procedure Category Date Status Time Basic Metabolic Panel LAB 12/14/24 Verified 04:00 Chest Portable XY 12/13/24 Verified 10:53 Date of Service: Dec 13, 2024 Billing Provider: JANA ORNELAS NP Common Visit Codes: [id number] INP/OBS CARE(HIGH) JANA ORNELAS NP Dec 13, 2024 10:57
[2024-12-13] MEDS: BISACODYL 10 MG RECT SUPP PR ONE (16:11)
[2024-12-13] MEDS: SENNA 8.6 MG TAB PO PRN (16:12)
[2024-12-14] VITALS (7 sets, daily range): BP systolic 95–108; BP diastolic 53–67; PULSE 73–81; RESP 18; TEMP 97.4–98.4; O2SAT 91–98
[2024-12-14 05:13] LABS: Anion Gap 7 (5-15); Calcium 8.9 mg/dL (8.7-10.4); Potassium 4.2 mmol/L (3.5-5.1)
[2024-12-14 05:15] LABS: Carbon Dioxide 31 mmol/L (20-31); Chloride 98 mmol/L (98-107); Sodium 136 mmol/L (136-145)
[2024-12-14 05:19] LABS: BUN/Creatinine Ratio 24.4 (10.0-20.0); Blood Urea Nitrogen 30 mg/dL (9-23); Glucose 88 mg/dL (74-106)
--- NOTE | 2024-12-14 09:14 | DVH ---
INDICATION: pna TECHNIQUE: Single frontal view of the chest was obtained COMPARISON: XY CHEST PORTABLE on DOS: 12/13/24, XY CHEST PORTABLE on DOS: 12/12/24, XY CHEST PORTABLE o n DOS: 12/11/24, XY CHEST PORTABLE on DOS: 12/09/24, XY CHEST PORTABLE on DOS: 11/09/24, XY CHEST PORTAB LE on DOS: 12/13/24 FINDINGS: Lines and Tubes: None Lungs: Unchanged COPD. Multifocal airspace disease most prominent in the left lower lobe. Pleura: No effusion.No pneumothorax. Cardiomediastinal contours: Unremarkable Bones: Unremarkable IMPRESSION: Unchanged COPD. Multifocal airspace disease most prominent in the left lower lobe.
[2024-12-14] MEDS: DOCUSATE SOD 100 MG CAP PO PRN (10:24)
--- NOTE | 2024-12-14 13:35 | DVHPN2 ---
Subjective Patient complaining of shortness of breath Reviewed: Care Plan, H&P, Labs, Medications Changes from previous H/P or p: No Changes General: Per HPI Eyes: No Pain, No Vision change, No Conjunctivae inflammation, No Eyelid inflammation, No Other, No Redness ENT: No Ear pain, No Ear discharge, No Nose pain, No Nose discharge, No Nose congestion, No Mouth pain, No Mouth swelling, No Throat pain, No Throat swelling, No Other Cardiovascular: No Chest Pain, No Palpitations, No Orthopnea, No Paroxysmal Noc. Dyspnea, No Edema, No Lt Headedness, No Other Respiratory: No Cough, No Dry, No Shortness of breath, No SOB with excertion, No Wheezing, No Hemoptysis, No Pleuritic Pain, No Sputum, No Other Gastrointestinal: No Nausea, No Vomiting, No Abdominal Pain, No Diarrhea, No Constipation, No Melena, No Hematochezia, No Other Genitourinary: No Dysuria, No Frequency, No Incontinence, No Hematuria, No Retention, No Other Musculoskeletal: No other, No neck pain, No shoulder pain, No arm pain, No back pain, No hand pain, No leg pain, No foot pain Objective Vitals Vital Signs Date Time Temp Pulse Resp B/P (MAP) Pulse Ox O2 Delivery O2 Flow Rate FiO2 12/14/24 12:55 97.4 81 18 95/57 (70) 98 97.4 12/14/24 08:00 Nasal Cannula* 2 28 Intake/Output Intake and Output 12/14/24 07:00 Intake Total 1230 ml Output Total 2050 ml Balance -820 ml Intake Oral 980 ml IV Total 250 ml Output Urine Total 2050 ml # Voids 2 # Bowel Movements 2 General Appearance: Alert, Oriented X3, Cooperative, mild distress HEENT: Atraumatic, PERRLA Lungs: Clear to auscultation, Normal air movement Cardiovascular: Normal S1, Normal S2 Abdomen: Normal bowel sounds, Soft, No tenderness, No hepatospenomegaly, No masses Back: Flank Tenderness, Midline Tenderness Musculoskeletal: Normal sensory function, Normal motor function Neuro: Normal gait, Normal speech Skin: Dry, Intact Psych/Mental Status: Mental status NL, Mood NL Medications Current Medications Medications Dose Ordered Sig/Louie Route Start Time Stop Time Status Last Admin Dose Admin Ceftriaxone Sodium 50 ml @ 100 mls/hr DAILY@1200 IV 12/10/24 12:00 12/14/24 10:18 100 MLS/HR Albuterol 2.5 mg Q4HPRN PRN NEB 12/09/24 21:15 Tamsulosin HCl 0.4 mg QPM PO 12/10/24 18:00 12/13/24 17:54 0.4 MG Sodium Chloride 10 ml Q8HR IV 12/09/24 22:00 12/14/24 06:44 10 ML Acetaminophen/ Hydrocodone Bitart 1 tab Q4HP PRN PO 12/09/24 21:15 12/10/24 04:38 1 TAB Docusate Sodium 100 mg BIDPRN PRN PO 12/09/24 21:15 12/14/24 10:24 100 MG Acetaminophen 650 mg Q6HP PRN PO 12/09/24 21:15 12/14/24 02:52 650 MG Nitroglycerin 0.4 mg Q5MINP PRN SL 12/09/24 21:15 Morphine Sulfate 2 mg Q30M PRN IV 12/09/24 21:15 Rivaroxaban 15 mg QPM PO 12/10/24 18:00 12/13/24 17:54 15 MG Doxycycline Hyclate 100 ml @ 50 mls/hr Q12H IV 12/10/24 13:45 12/14/24 01:20 50 MLS/HR Enteral Nutritional Formula 240 ml TIDWM PO 12/10/24 18:00 12/14/24 10:18 240 ML Furosemide 20 mg DAILY PO 12/13/24 10:00 12/14/24 10:18 20 MG Sennosides 8.6 mg QHSP PRN PO 12/13/24 15:00 12/13/24 16:12 8.6 MG Laboratory Results Laboratory Tests 12/13/24 04:46 12/14/24 04:39 Chemistry Test 12/14/24 04:39 Calcium Level 8.9 mg/dL (8.7-10.4) Urinalysis Test 12/09/24 13:00 Urine Color Yellow (Yellow) Urine Clarity Turbid (Clear) H Urine pH 5.0 (5.0-9.0) Urine Specific [place] 1.021 (1.001-1.035) Urine Protein 1+ (Negative) H Urine Ketones Negative (Negative) Urine Blood 3+ /uL (Negative) H Urine Nitrite Negative (Negative) Urine Bilirubin Negative (Negative) Urine Urobilinogen Normal mg/dL (Negative) Urine Leukocyte Esterase 1+ /uL (Negative) Urine RBC 1282 /hpf (0 - 3) Urine Microscopic WBC 216 /HPF (0-3) H Urine Squamous Epithelial Cells Few /hpf (<5) Urine Bacteria None seen /hpf (None Seen) Urine Mucus Few (None Seen) Urine Glucose 4+ mg/dL (Normal) H Labs and/or images reviewed: Labs reviewed by me, Image(s) reviewed by me Assessment/Plan Assessment/Plan Impression: -acute hypoxic respiratory failure -community-acquired pneumonia, probable Gram-positive/Gram-negative etiology -acute on chronic systolic heart failure -atrial fibrillation -anxiety disorder -decubitus ulcer -COPD -cachexia Plan: -antibiotic therapy, Rocephin, doxycycline -change lasix to po -bronchodilators -continue anticoagulation with Xarelto -continue guideline directed medical therapy for heart failure -PUD prophylaxis -Continue ensure -physical therapy -social service consult for SNF placement -repeat labs in a.m. Total time spent with patient discussing and formulating plan of care: 35 minutes. This medical document was created using an electronic medical record system with [employer] dictation system. Although this document has been carefully reviewed, there may still be some phonetic and typographical errors. These areas are purely typographical due to imperfections of the software programs, and do not reflect any compromise in the patient's medical care. Plan discussed with: Patient, Other (RN) My Orders Orders - JANA ORNELAS NP Procedure Category Date Status Time Senna Pod Tablet PHA 12/13/24 In Process (Senokot Tablet) 15:00 Date of Service: Dec 14, 2024 Billing Provider: JANA ORNELAS NP Common Visit Codes: [id number] INP/OBS CARE(HIGH) JANA ORNELAS NP Dec 14, 2024 13:35
[2024-12-15 05:00] VITALS: BP 100/62; PULSE 78; RESP 20; TEMP 97.7; O2SAT 91
[2024-12-15 08:00] VITALS: O2SAT 98
[2024-12-15 08:42] VITALS: BP 110/63; PULSE 71; RESP 17; TEMP 98.1; O2SAT 92; O2SAT 94
--- NOTE | 2024-12-15 11:32 | DVHDS2 ---
Discharge Summary Date of Admission Dec 09, 2024 at 21:04 Date of Discharge: Dec 15, 2024 Admitting Diagnosis Pneumonia, unspecified organism Labs/Diagnostic Data: Laboratory Results Test 12/14/24 04:39 12/13/24 04:46 12/12/24 05:05 12/10/24 03:34 Sodium Level 136 mmol/L (136-145) Potassium Level 4.2 mmol/L (3.5-5.1) Chloride Level 98 mmol/L (98-107) Carbon Dioxide Level 31 mmol/L (20-31) Anion Gap 7 (5-15) Blood Urea Nitrogen 30 mg/dL (9-23) Creatinine 1.23 mg/dL (0.700-1.30) Glomerular Filtration Rate Calc 57 mL/min (>90) BUN/Creatinine Ratio 24.4 (10.0-20.0) Serum Glucose 88 mg/dL (74-106) Calcium Level 8.9 mg/dL (8.7-10.4) White Blood Count 8.3 10^3/uL (4.4-10.8) Red Blood Count 3.75 10^6/uL (4.5-5.90) Hemoglobin 12.1 g/dL (13.5-17.5) Hematocrit 36.5 % (41.0-53.0) Mean Corpuscular Volume 97.1 fL (80.0-100.0) Mean Corpuscular Hemoglobin 32.3 pg (28.0-32.0) Mean Corpuscular Hemoglobin Concent 33.3 g/dL (32.0-36.0) Red Cell Distribution Width 15.4 % (11.8-14.3) Platelet Count 128 10^3/uL (140-450) Mean Platelet Volume 7.4 fL (6.9-10.8) Neutrophils (%) (Auto) 81.2 % (37.0-80.0) Lymphocytes (%) (Auto) 9.8 % (10.0-50.0) Monocytes (%) (Auto) 8.0 % (0.0-12.0) Eosinophils (%) (Auto) 0.2 % (0.0-7.0) Basophils (%) (Auto) 0.8 % (0.0-2.0) Neutrophils # (Auto) 6.8 10 ^3/uL (1.6-8.6) Lymphocytes # (Auto) 0.8 10 ^3/uL (0.4-5.4) Monocytes # (Auto) 0.7 10 ^3/uL (0-1.3) Eosinophils # (Auto) 0 10 ^3/uL (0-0.8) Basophils # (Auto) 0.1 10 ^3/uL (0-0.2) Nucleated Red Blood Cells 0.1 % Magnesium Level 2.0 mg/dL (1.6-2.6) Total Bilirubin 0.4 mg/dL (0.2-1.0) Aspartate Amino Transferase (AST) 28 U/L (13-40) Alanine Aminotransferase (ALT) 24 U/L (7-40) Alkaline Phosphatase 298 U/L (46-116) Total Protein 6.6 g/dL (5.7-8.2) Albumin 3.1 g/dL (3.2-4.8) Test 12/09/24 16:47 12/09/24 15:11 12/09/24 13:00 POC Glucose 77 mg/dl (70-106) Troponin I High Sensitivity 30 ng/L (</=54) Urine Color Yellow (Yellow) Urine Clarity Turbid (Clear) Urine pH 5.0 (5.0-9.0) Urine Specific [place] 1.021 (1.001-1.035) Urine Protein 1+ (Negative) Urine Ketones Negative (Negative) Urine Blood 3+ /uL (Negative) Urine Nitrite Negative (Negative) Urine Bilirubin Negative (Negative) Urine Urobilinogen Normal mg/dL (Negative) Urine Leukocyte Esterase 1+ /uL (Negative) Urine RBC 1282 /hpf (0 - 3) Urine Microscopic WBC 216 /HPF (0-3) Urine Squamous Epithelial Cells Few /hpf (<5) Urine Bacteria None seen /hpf (None Seen) Urine Mucus Few (None Seen) Urine Glucose 4+ mg/dL (Normal) Other Laboratory Tests 12/14/24 04:39 12/13/24 04:46 Brief Hx & Hospital Course: History of Present Illness The patient is a 84-year-old male with past medical history of AFib, arthritis, CHF, COPD, and PE who presented to [facility] ED with complaint of shortness of breaths. Patient resides SNF currently on 3 L nasal cannula but has not been keeping his nasal cannula on. Patient was found to be desaturating in the 80s, so EMS were called. Patient was seen and evaluated in the ED, laboratory data shows WBC 13.3, platelets 252, sodium 138, potassium 4.7, BUN 29, creatinine 1.49, platelets 78, calcium 8.5, troponin 30, alkaline phos 333, blood pressure 112/45, pulse 82, temperature 97.7 F, O2 saturation 99% on oxygen. Chest x-ray revealing multifocal patchy opacities and left bibasilar consolidations; interstitial reticulation can be seen with interstitial lung disease, small left effusion. Urinalysis positive for urinary tract infection. Please see medication orders section in the computer. On my assessment, patient denied chest pain, no headache, no dizziness, no diaphoresis, currently on oxygen, no diarrhea, no nausea, no vomiting, no fever, no chills. Patient was admitted for further evaluation and medical management. Course of hospitalization: Initial presentation of the patient reveals severe lethargy and hypoxia. Patient was started on Rocephin and doxycycline. Patient was given gentle IV hydration with holding patient's diuretics initially given his septic presentation and low blood pressure. Patient is now A&O x4. Patient's white blood cell count has normalized. Vital signs are now stable. Patient is requesting not to be transferred back to his current detention facility, and we will be transferred to a different facility, tentatively [facility]. Patient will be continued on antibiotic therapy with doxycycline 100 mg p.o. b.i.d. as well as continuation of his home medications. Patient was agreeable with discharge plan. All questions answered. Physical examination General: Alert and Oriented x3. No acute distress. Well-nourished. Eyes: EOMI. Anicteric. HENT: Moist mucous membranes. Lungs: Clear to auscultation bilaterally. No accessory muscle use. Cardiovascular: Regular rate and rhythm. No murmur. No JVD. Abdomen: Soft, non-tender and non-distended. No palpable masses. Extremities: No edema. Non-tender. Skin: No rashes or lesions. Warm. Neurologic: No focal neurological deficits. CN II-XII grossly intact, but not individually tested. Psychiatric: Cooperative. Appropriate mood and affect. Total time spent with patient discussing and formulating plan of care: 35 minutes. This medical document was created using an electronic medical record system with [employer] dictation system. Although this document has been carefully reviewed, there may still be some phonetic and typographical errors. These areas are purely typographical due to imperfections of the software programs, and do not reflect any compromise in the patient's medical care. Condition at Discharge: Fair Final Diagnosis/Problems List Acute on chronic hypoxic respiratory failure -community-acquired pneumonia, probable Gram-positive/Gram-negative etiology -acute on chronic systolic heart failure -atrial fibrillation -anxiety disorder -decubitus ulcer -COPD -cachexia Discharge Disposition: Senior Living Facility Discharge Instruct/Medications Diet: Cardiac 2g Na,low cholest Diet comment: Fluid restriction of 1200 mL per day Activity: No Restrictions, As Tolerated Follow Up/Referral: Per accepting provider at nursing facility Medications: Refer to medication reconciliation form Scheduled Doxycycline Monohydrate (Doxycycline Monohydrate), 1 CAP PO BID Empagliflozin (Jardiance), 10 MG PO DAILY Furosemide (Lasix), 40 MG PO DAILY Hydroxychloroquine Sulfate (Hydroxychloroquine Sulfat), 200 MG PO DAILY Metoprolol Succinate (Metoprolol Succinate Er), 1 TAB PO DAILY Prednisone (Prednisone), 40 MG PO DAILY Rivaroxaban (Xarelto), 1 TAB PO QPM Spironolactone (Aldactone), 1 TAB PO DAILY Tamsulosin Hcl (Flomax), 0.4 MG PO DAILY, (Reported) Zolpidem Tartrate (Ambien), 1 TAB PO QPM, (Reported) Scheduled PRN Albuterol Sulfate (Ventolin Mdi), 90 MCG IN QID PRN Epinephrine (Anaphylaxis) (Auvi-Q), 0.1 MG IJ O PRN Hydrocodone-Acetaminophen (Hydrocodone Bitartrate/AC 5-325 mg), 1 TAB PO Q6HPRN PRN Senna (Senna), 8.6 MG PO DAILYP PRN 36 Discharge Statement: "Patient was advised to return to the ER or call 911 if any headaches, dizziness, shortness of breath, chest pain, abdominal pain, bleeding, fevers, or worsening of medical condition. Patient was counseled about treatment plan, medications, possible side effects, patientverbalized understanding. All questions were answered to the best of my ability. This discharge took greater then 30 minutes in planning, reviewing documentation, counseling the patient, and discussing with other team members." ASSESSMENT ASSESSMENT Assessment Acute on chronic hypoxic respiratory failure Date of Service: Dec 15, 2024 Billing Provider: JANA ORNELAS NP Common Visit Codes: 64855-HOD/OBS DISCH DAY >30min JANA ORNELAS NP Dec 15, 2024 11:32
[2024-12-15 13:00] VITALS: BP 110/58; PULSE 72; RESP 18; TEMP 97.8; O2SAT 99
[2024-12-15 16:52] VITALS: BP 113/64; PULSE 74; RESP 18; TEMP 98.7; O2SAT 93
== END 2024-12-15 17:20 | DRG 177 ==
LOC: EDBD 11:26 → ER 11:26 → OVERFLOW 21:04 → TELE-EAST 12-10 13:38 → EAST 12-11 11:53
PROVIDERS: ADMIT Nurse Practitioner Acute Care; ATTEND Nurse Practitioner Acute Care
DX: J15.69 Pneumonia due to other Gram-negative bacteria (principal); I50.23 Acute on chronic systolic (congestive) heart failure; J96.21 Acute and chronic respiratory failure with hypoxia; N17.9 Acute kidney failure, unspecified; R64 Cachexia; J44.0 Chronic obstructive pulmonary disease with (acute) lower respiratory infection; N39.0 Urinary tract infection, site not specified; Z68.1 Body mass index [BMI] 19.9 or less, adult; J15.9 Unspecified bacterial pneumonia; B30.9 Viral conjunctivitis, unspecified; F41.9 Anxiety disorder, unspecified; I48.91 Unspecified atrial fibrillation; L89.899 Pressure ulcer of other site, unspecified stage
CPT/HCPCS: 36415; 71045; 80048; 80053; 81001; 82962; 83735; 84484; 85025; 93005; 96365; G0378; J0696

== ENCOUNTER 2025-01-01 01:54 | Emergency (ER) | payer OTHER, MEDICARE ==
[~2025-01-01] VITALS: Ht 180.3 cm; Wt 43.0 kg
--- NOTE | 2025-01-01 02:19 | ED.PDOC ---
History of Present Illness HPI Comments 84 y/o M is BIBA from [facility] for c/c of left eyebrow laceration, nasal bridge abrasion, and skin tears and bruising to bilateral forearms s/p mechanical fall injury. Per staff, patient fell an hour prior to ED arrival. No reported LOC. No further injuries or acute symptoms reported at this time. Chief Complaint: Fall Injury Time Seen by MD: 02:00 [facility] Care Provider: [facility] Reviewed Notes: Nurses Notes, Can Handler Notes, Medications, Allergies Allergies: Coded Allergies: Empagliflozin (Verified Allergy, Severe, 11/10/24) stops breathing Sulfa Antibiotics (Verified Allergy, Severe, 05/08/24) Sulfabenzamide (Verified Allergy, Intermediate, 05/08/24) Sulfacetamide (Verified Allergy, Intermediate, 05/08/24) Sulfathiazole (Verified Allergy, Intermediate, 05/08/24) Sacubitril (Unverified Allergy, Unknown, SOB Weakness , 08/21/24) Per pt report Valsartan (Unverified Allergy, Unknown, SOB Weakness , 08/21/24) Per pt report Metoprolol (Verified Adverse Reaction, Severe, 07/12/24) "don't feel very good" per patient Sitagliptin (Verified Adverse Reaction, Severe, 07/12/24) Pt states it made him "feel not very good" Home Meds Active Scripts Senna (Senna) 8.6 Mg Tab, 8.6 MG PO DAILYP PRN for 30 Days, #30 TAB Prov:ROSALEE ZULETA MD 10/30/24 Doxycycline Monohydrate (Doxycycline Monohydrate) 100 Mg Cap, 1 CAP PO BID for 5 Days, #10 CAP Prov:ROSALEE ZULETA MD 10/30/24 Prednisone (Prednisone) 20 Mg Tab, 40 MG PO DAILY for 3 Days, #6 MG Prov:ROSALEE ZULETA MD 10/30/24 Hydroxychloroquine Sulfate (Hydroxychloroquine Sulfat) 200 Mg Tab, 200 MG PO DAILY, #30 TAB 5 Refills Prov:CONNIE COLON MD 07/01/24 Hydrocodone-Acetaminophen (Hydrocodone Bitartrate/AC 5-325 mg) 1 Tab Tab, 1 TAB PO Q6HPRN PRN, #20 TAB Prov:CONNIE COLON MD 07/01/24 Rivaroxaban (XARELTO) 20 Mg Tab, 1 TAB PO QPM, #30 TAB 5 Refills Prov:CONNIE COLON MD 07/01/24 Albuterol Sulfate (VENTOLIN MDI) 90 Mcg Ih, 90 MCG IN QID PRN, #1 INH Prov:RAY CORCORAN MD 06/17/24 Spironolactone (Aldactone) 25 Mg Tab, 1 TAB PO DAILY, #30 TAB 5 Refills Prov:HERBIE LEI MD 05/11/24 Furosemide (Lasix) 40 Mg Tab, 40 MG PO DAILY for 30 Days, #30 TAB 5 Refills Prov:HERBIE LEI MD 05/11/24 Metoprolol Succinate (Metoprolol Succinate Er) 25 Mg Tab, 1 TAB PO DAILY, #30 TAB 1 Refill Prov:ZEENAT PRATT MD 04/20/24 Empagliflozin (Jardiance) 10 Mg Tab, 10 MG PO DAILY for 30 Days, #30 TAB 1 Refill Prov:ZEENAT PRATT MD 04/20/24 Epinephrine (Anaphylaxis) (Auvi-Q) 0.1 Mg/0.1 Ml Inj, 0.1 MG IJ O PRN for 1 Day, #1 INJ Prov:MARCELO TOWNSEND MD 09/09/23 Reported Medications Zolpidem Tartrate (Ambien) 10 Mg Tab, 1 TAB PO QPM 09/20/23 Tamsulosin Hcl (Flomax) 0.4 Mg Cap, 0.4 MG PO DAILY, CAP 09/04/23 Information Source: Patient, Emergency Med Personnel Mode of Arrival: EMS Severity: Moderate Timing: Hours Duration: Since onset Prehospital treatment: 12 Lead EKG, Accucheck, 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 Past Medical History PAST MEDICAL HISTORY: AFIB, Arthritis, CHF, COPD, PE, UTI'S Past Medical History (Other): BPH PNA Surgical History: Hernia Repair, Tonsillectomy Family History Family History: Reviewed,noncontributory to illness, Unknown Social History Smoker: Non-Smoker Alcohol: Denies ETOH Use Drugs: Denies Drug Use Lives In: Home All Other Systems: Reviewed and Negative (Comprehensive review of systems are negative unless stated in HPI) Physical Exam General Appearance: No Apparent Distress, Normal HEENT: Pharynx Normal, TMs Normal, Other (laceartion to left eyebrow and abrasion to nasal bridge ) Neck: Full Range of Motion, Non-Tender, Normal, Normal Inspection Respiratory: Chest Non-Tender, Lungs Clear, No Accessory Muscle Use, No Respiratory Distress, Normal Breath Sounds Cardiovascular: No Edema, No JVD, No Murmur, No Gallop, Normal Peripheral Pulses, Regular Rate/Rhythm Breast Exam: Deferred Gastrointestinal: No Organomegaly, Non Tender, No Pulsatile Mass, Normal Bowel Sounds, Soft Genitalia: Deferred Pelvic: Deferred Rectal: Deferred Extremities: No calf tenderness, Normal capillary refill, Normal range of motion, Non-tender, No pedal edema, Other (skin tears and contusions to bilateral forearms ) Musculoskeletal : Apperance: Normal Neurologic: Alert, 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 Was a procedure done?: Yes Sedation Sedation?: No Informed consent obtained: Yes Laceration Repair : Location forehead Length 3 cm Anesthetic: Lidocaine Laceration Repair Prep: Saline Laceration Repair Wound Comple: epidermis/dermis repair Laceration Repair: Number of sutures (4), Skin, SQ, Size (4-0), Chromic, Dermabond Informed consent obtained: Yes Risks, benefits, and alternati: Yes Differential Dx Considerations may include: lacerations, abrasions, contusions, fractures, closed head injury, intracranial bleed, among others X-Ray, Labs, Meds, VS Vital Signs Date Time Temp Pulse Resp B/P (MAP) Pulse Ox O2 Delivery O2 Flow Rate FiO2 01/01/25 03:12 Room Air* 0 21 01/01/25 03:05 97.9 89 27 111/53 (72) 93 97.9 01/01/25 02:12 97.2 90 18 113/61 93 97.2 01/01/25 01:58 87 Time of 1ST Reevaluation: 02:25 Reevaluation 1ST: Unchanged Patient Education/Counseling: Diagnosis, Treatment Family Education/Counseling: No Family Present SEPSIS Sepsis Screen Physician Orders Electrocardigram (01/01/25 02:06) Head Without Contrast (01/01/25 02:08) Maxillofacial Without (01/01/25 02:08) Cervical Without Contrast (01/01/25 02:08) R Forearm Xray (01/01/25 02:08) L Forearm Xray (01/01/25 02:08) Laceration Setup (01/01/25 ) Dermabond (01/01/25 ) Vital Signs Date Time Temp Pulse Resp B/P (MAP) Pulse Ox O2 Delivery O2 Flow Rate FiO2 01/01/25 03:12 Room Air* 0 21 01/01/25 03:05 97.9 89 27 111/53 (72) 93 97.9 01/01/25 02:12 97.2 90 18 113/61 93 97.2 01/01/25 01:58 87 Departure 1 Departure Time of Disposition: 04:44 Impression: Primary Impression: C4 cervical fracture Additional Impressions: Nasal fracture Laceration of forehead, left, complicated Disposition: 02 SHORT TERM HOSPITAL Condition: Guarded Comments Patient appears to have a fairly stable cervical spine fracture of the spinous process of C4. Also nasal fracture. Patient's wounds were cleaned and sutures were placed to the forehead laceration. Patient will need transfer for trauma and neurosurgery evaluation. I contacted [facility] and Dr. Mckeon accepted the patient for transfer. Critical Care Note Critical Care Time?: Yes (35 min-critical care time only) Critical care comment: Total critical care time: Approximately 36 minutes Due to a high probability of clinically significant, life threatening deterioration, the patient required my highest level of preparedness to intervene emergently and I personally spent this critical care time directly and personally managing the patient. This critical care time included obtaining a history; examining the patient; pulse oximetry; ordering and review of studies; arranging urgent treatment with development of a management plan; evaluation of patient's response to treatment; frequent reassessment; and, discussions with other providers. This critical care time was performed to assess and manage the high probability of imminent, life-threatening deterioration that could result in multi-organ failure. It was exclusive of separately billable procedures and treating other patients. Stability Stability form required: No Heart Score Heart Score: Heart Score Response (Comments) Value History N/A 0 EKG N/A 0 Age N/A 0 Risk Factors N/A 0 Troponin N/A 0 Total 0 I personally scribed for AMANDA JOE MD ([email or web address]) on 01/01/25 at 02:19. Electronically submitted by Akbar Ibrahim ([email or web address]). AMANDA JOE MD Jan 01, 2025 02:19
--- NOTE | 2025-01-01 03:13 | DVH ---
EXAM: CT HEAD WITHOUT CONTRAST INDICATION: fall injury TECHNIQUE: CT of the head without intravenous contrast. Radiation Dose : 1. Head: CT Dose: CTDI volume is 7.65 mGy. Dose-length product is 85.41 mGy*cm The dose indicators for CT are the volume Computed Tomography (CT) Dose Index (CTDIvol) and the Dose Length Product (DLP), and are measured in units of mGy and mGy-cm, respectively. These indicators are not patient dose, but values generated from the CT scanner acquisition factors. The report includes radiation exposure data for exposures received during this examination. COMPARISON: CT HEAD WITHOUT CONTRAST on DOS: 09/11/24, HEAD WITHOUT CONTRAST on DOS: 04/14/21 FINDINGS: There is no evidence of acute intracranial hemorrhage, extra-axial collection, mass effect, midline s hift, herniation or hydrocephalus. Increased prominence of the ventricles, sulci and cisterns consistent with the sequelae of atrophic c ortical volume loss. The conley-white differentiation is intact. Moderate diffuse confluent periventricular and subcortical white matter hypoattenuation is nonspecifi c but may be related to small vessel ischemic disease. Minimal left maxillary mucosal sinus disease. The remaining visualized paranasal sinuses and mastoid air cells are clear. Minimally displaced left nasal bone fracture with overlying soft tissue swelling. Mild left paramedia n frontal scalp hematoma. The surrounding soft tissues and osseous structures are otherwise unremarka ble. IMPRESSION: 1. No CT evidence of acute intracranial abnormality. 2. Chronic sequelae of microangiopathy and atrophic cortical volume loss. 3. Minimally displaced left nasal bone fracture with overlying soft tissue swelling. 4. Mild left paramedian frontal scalp hematoma. Radiation optimization: All CT scans at this facility use at least one of these dose optimization nany hniques: automated exposure control mA and/or kV adjustment per patient size (includes targeted exam s where dose is matched to clinical indication) or iterative reconstruction.
--- NOTE | 2025-01-01 03:21 | DVH ---
CLINICAL INDICATION: fall injury TECHNIQUE: XY R FOREARM XRAY Comparison: XY L FOREARM XRAY on DOS: 01/01/25 FINDINGS/IMPRESSION: : There is no evidence of acute fracture or dislocation. Mild diffuse generalized osseous demineralization. Soft tissues are unremarkable.
--- NOTE | 2025-01-01 03:27 | DVH ---
CLINICAL INDICATION: fall injury TECHNIQUE: XY L FOREARM XRAY Comparison: XY R FOREARM XRAY on DOS: 01/01/25 FINDINGS/IMPRESSION: : There is no evidence of acute fracture or dislocation. Diffuse generalized osseous demineralization. Soft tissues are unremarkable.
--- NOTE | 2025-01-01 04:11 | DVH ---
EXAM: CT CERVICAL WITHOUT CONTRAST HISTORY: fall injury COMPARISON: CT HEAD WITHOUT CONTRAST on DOS: 01/01/25, CT HEAD WITHOUT CONTRAST on DOS: 09/11/24 CTDIvol 63.84 mGy, DLP 1408.21 mGy*cm. TECHNIQUE: Multiple axial CT images of the spine were obtained using bone algorithm. Axial and coron al reformatting was done. Bone and soft tissue windows were reviewed. FINDINGS: Mildly displaced partially comminuted C4 spinous process fracture without interruption of the corresp onding lamina. No other fractures are identified. No significant acute appearing acute subluxation is seen. The visualized paraspinal soft tissues are grossly unremarkable. Degenerative changes of the cervical spine include multilevel disc height loss with adjacent endplate sclerosis and anterior osteophytosis. Multilevel bilateral facet hypertrophy noted. IMPRESSION: 1. Mildly displaced partially comminuted C4 spinous process fracture without interruption of the laine esponding lamina. 2. No significant acute appearing acute subluxation is seen. 3. Advanced degenerative change of the cervical spine. Critical Result: Cervical spine fracture Findings discussed with AMANDA JOE at 01/01/2025 07:08 AM EST, and acknowledged receipt and unde rstanding of the findings.
--- NOTE | 2025-01-01 04:15 | DVH ---
CLINICAL INDICATION: Fall injury. TECHNIQUE: Noncontrast CT of the facial bones was performed. Sagittal and coronal reformatted images are provided. COMPARISON: None. CT Dose: CTDI volume is 63.8 mGy. Dose-length product is 1408.2 mGy*cm FINDINGS: There is an acute fracture through the C5 spinous process. The vertebral body heights are maintained. There is straightening of the cervical lordotic curvature. There is no traumatic subluxation. Multi level intervertebral disc space narrowing. IMPRESSION: 1. Acute fracture through the C5 spinous process. 2. No acute fracture or traumatic subluxation of the cervical spine. All CT scans at this medical facility are performed using dose modulation techniques as appropriate t o a performed exam including the following: Automated exposure control was utilized; adjustment of th e MA and/or KV according to patient size; and use of iterative reconstruction technique.
--- NOTE | 2025-01-01 04:50 | ECG ---
[facility] Test Date: 2025-01-01 Test Time: 01:58:15 Pat Name: CORONA ZEPEDA Department: [facility] ED Patient ID: [facility]-[id number] Room: Gender: M Grants Assistant: KWABENA : [id number] Requested By: AMANDA JOE Order Number: [id number] Reading MD: Corona Thomas Measurements Intervals [place] Rate: 87 P: 0 [place]: 0 QRS: -34 QRSD: 94 T: 89 QT: 365 QTc: 439 Interpretive Statements Atrial fibrillation LVH with secondary repolarization abnormality Baseline wander in lead(s) V5 Electronically Signed On 01-02-2025 15:23:58 PDT by Corona Thomas Please click the below link to view image of tracing.
[2025-01-01] MEDS: LIDOCAINE 1% HCL (LOCAL ANESTH.) INJ 20ML MDV ID ONE (04:54)
[2025-01-01] MEDS: HYDROmorphone HCL 2 MG/ML VL/or syr IV ONE (05:21)
[2025-01-01 06:20] VITALS: BP 115/50; PULSE 90; RESP 22; TEMP 98; O2SAT 100
== END 2025-01-01 06:56 | disposition short-term general hospital (02) ==
LOC: EDBD 01:54 → ER 01:54 → EDUNIT# 01:54 → ER 06:56
DX: S12.300A Unspecified displaced fracture of fourth cervical vertebra, initial encounter for closed fracture (principal); S02.2XXA Fracture of nasal bones, initial encounter for closed fracture; S01.81XA Laceration without foreign body of other part of head, initial encounter; I48.91 Unspecified atrial fibrillation; I50.9 Heart failure, unspecified; J44.9 Chronic obstructive pulmonary disease, unspecified; Z79.899 Other long term (current) drug therapy; Z90.89 Acquired absence of other organs; Z98.890 Other specified postprocedural states; Z88.2 Allergy status to sulfonamides; W19.XXXA Unspecified fall, initial encounter; Y93.89 Activity, other specified; Y92.89 Other specified places as the place of occurrence of the external cause; Y99.8 Other external cause status
CPT/HCPCS: 12052; 70450; 70486; 72125; 73090; 93005; 96374; 99291; J1171; J2003